=== PATIENT | male | born 1960 | race African-American/Black ===

== ENCOUNTER 2022-02-16 10:52 | Emergency (ER) | payer MEDICAID, OTHER ==
[~2022-02-16] VITALS: Ht 190.5 cm; Wt 168.7 kg
--- NOTE | 2022-02-16 11:15 | ED General ---
General Chief Complaint: Neuro-Stroke Like Symptoms Stated Complaint: LEFT ARM WEAKNESS Nursing Triage Note: PT TO RM 9 WITH FAMILY WITH C/O L ARM AND HAND SPASMS THAT STARTED APPROX 2 HOURS AGO AND SLIGHT CP ON ARRIVAL Source of Information: Patient Exam Limitations: No Limitations History of Present Illness Date Seen by Provider: Feb 16, 2022 Time Seen by Provider: 11:10 Initial Comments Patient is a 61-year-old male who presents to the emergency department with left hand/forearm "spasming" and mild discomfort that began approximately 2 hours prior to arrival. Patient denies any numbness or weakness in the affected area. Patient states he also has some very mild chest pain that he rates 1 out of 10 that has been present since yesterday. States he also has some mild shortness of air but notes that this is not new for him. Patient had a myocardial infarction requiring stenting approximately 2 months ago while he was in [place]. States he has not established a PCP or conflicts analyst in this area as he just moved. Patient states he thinks he "overexerted himself" as he drove for a prolonged period of time over the last few days and cleaned out his vehicle upon arriving here. Allergies and Home Medications Allergies Coded Allergies: codeine (Verified Allergy, Unknown, 02/16/22) haloperidol (Verified Allergy, Unknown, 02/16/22) iodine (Verified Allergy, Unknown, Vomiting, 02/16/22) pregabalin (Verified Allergy, Unknown, 02/16/22) simvastatin (Verified Allergy, Unknown, 02/16/22) Patient Home Medication List Home Medication List Reviewed: Yes Review of Systems Review of Systems Constitutional: no symptoms reported EENTM: no symptoms reported Respiratory: see HPI Cardiovascular: see HPI Gastrointestinal: no symptoms reported Musculoskeletal: see HPI Psychiatric/Neurological: No Symptoms Reported Past Ciijlmh-Crkqlv-Uakflx Hx Patient Social History Tobacco Use?: Yes Tobacco type used: Cigarettes Smoking Status: Current Everyday Smoker Substance use?: No Alcohol Use?: No Pt feels they are or have been: No Immunizations Up To Date Influenza Vaccine Up-to-Date: No; Not Current Past Medical History Surgery/Hospitalization HX: DM, HTN, NV, STENTS X2, HERNIA, BILL, R HAND, COLON, APPY Physical Exam Vital Signs Vital Signs - First Documented 02/16/22 10:55 Temp 36.0 Pulse 68 Resp 20 B/P (MAP) 161/97 (118) Capillary Refill : Height, Weight, BMI Height: '" Weight: lbs. oz. kg; 46.00 BMI Method: General Appearance: No Apparent Distress, WD/WN, Obese Eyes: Bilateral Eye Normal Inspection, Bilateral Eye PERRL, Bilateral Eye EOMI HEENT: PERRL/EOMI, TMs Normal, Normal ENT Inspection, Pharynx Normal Neck: Full Range of Motion, Normal Inspection, Non Tender, Supple Respiratory: Chest Non Tender, Lungs Clear, Normal Breath Sounds, No Accessory Muscle Use, No Respiratory Distress Cardiovascular: Regular Rate, Rhythm Gastrointestinal: Normal Bowel Sounds, Non Tender, Soft Back: Normal Inspection, No Vertebral Tenderness Extremity: Normal Capillary Refill, Normal Inspection, Normal Range of Motion Neurologic/Psychiatric: Alert, Oriented x3, No Motor/Sensory Deficits, Normal Mood/Affect, senior recruiter II-XII Norm as Tested Skin: Normal Color, Warm/Dry Comments no motor or sensation deficits noted to LUE; log feeder strength equal in both hands Progress/Results/Core Measures Suspected Sepsis SIRS Temperature: Pulse: 68 Respiratory Rate: 20 Laboratory Tests 02/16/22 11:06: White Blood Count 4.7 Blood Pressure 161 /97 Mean: 118 Laboratory Tests 02/16/22 11:06: Creatinine 1.67H, INR Comment 1.0, Platelet Count 205, Total Bilirubin 0.5 Results/Orders Lab Results Laboratory Tests Test 02/16/22 11:06 Range/Units White Blood Count 4.7 4.3-11.0 10^3/uL Red Blood Count 4.30 4.30-5.52 10^6/uL Hemoglobin 14.2 13.3-17.7 g/dL Hematocrit 41 40-54 % Mean Corpuscular Volume 96 80-99 fL Mean Corpuscular Hemoglobin 33 25-34 pg Mean Corpuscular Hemoglobin Concent 34 32-36 g/dL Red Cell Distribution Width 15.3 H 10.0-14.5 % Platelet Count 205 130-400 10^3/uL Mean Platelet Volume 9.7 9.0-12.2 fL Immature Granulocyte % (Auto) 0 % Neutrophils (%) (Auto) 48 42-75 % Lymphocytes (%) (Auto) 41 12-44 % Monocytes (%) (Auto) 9 0-12 % Eosinophils (%) (Auto) 2 0-10 % Basophils (%) (Auto) 1 0-10 % Neutrophils # (Auto) 2.3 1.8-7.8 10^3/uL Lymphocytes # (Auto) 2.0 1.0-4.0 10^3/uL Monocytes # (Auto) 0.4 0.0-1.0 10^3/uL Eosinophils # (Auto) 0.1 0.0-0.3 10^3/uL Basophils # (Auto) 0.0 0.0-0.1 10^3/uL Immature Granulocyte # (Auto) 0.0 0.0-0.1 10^3/uL Prothrombin Time 13.3 12.2-14.7 SEC INR Comment 1.0 0.8-1.4 Activated Partial Thromboplast Time 30 24-35 SEC Sodium Level 140 135-145 MMOL/L Potassium Level 3.8 3.6-5.0 MMOL/L Chloride Level 109 H 98-107 MMOL/L Carbon Dioxide Level 23 21-32 MMOL/L Anion Gap 8 5-14 MMOL/L Blood Urea Nitrogen 15 7-18 MG/DL Creatinine 1.67 H 0.60-1.30 MG/DL Estimat Glomerular Filtration Rate 46 BUN/Creatinine Ratio 9 Glucose Level 95 70-105 MG/DL Calcium Level 9.3 8.5-10.1 MG/DL Corrected Calcium 9.2 8.5-10.1 MG/DL Total Bilirubin 0.5 0.1-1.0 MG/DL Aspartate Amino Transf (AST/SGOT) 16 5-34 U/L Alanine Aminotransferase (ALT/SGPT) 13 0-55 U/L Alkaline Phosphatase 49 40-136 U/L Troponin I 0.038 H <0.028 NG/ML B-Type Natriuretic Peptide 195.2 H <100.0 PG/ML Total Protein 6.4 6.4-8.2 GM/DL Albumin 4.1 3.2-4.5 GM/DL My Orders Orders - JEMAL NICHOLS FACILITY ASSISTANT Cbc With Automated Diff (02/16/22 11:12) Comprehensive Metabolic Panel (02/16/22 11:12) Troponin I Rich (02/16/22 11:12) Bnp Rich (02/16/22 11:12) Protime With Inr (02/16/22 11:12) Partial Thromboplastin Time (02/16/22 11:12) Vital Signs/I&O 02/16/22 10:55 Temp 36.0 Pulse 68 Resp 20 B/P (MAP) 161/97 (118) Capillary Refill : Blood Pressure Mean: 118 Progress Note : Progress Note Patient is nontoxic and well-hydrated on exam. Vital signs are reassuring. NIH score 0. Patient has intact neurovascular function in the left upper extremity. Business Development strength is strong in the left hand. No cerebellar dysfunction as [id number] and noticed finger are intact. Patient was ambulatory to the room without issue. Patient is speaking in full sentences and is awake alert and oriented x4. No facial asymmetry noted. No gross cranial nerve deficits appreciated. Will obtain labs, chest x-ray, head CT, EKG. EKG without acute ischemic change or arrhythmia. Nonspecific ST changes in the anterior leads noted. Patient refused to the head CT and chest x-ray stating he has had several scans in the recent past and does not wish to have another at this time. Laboratory evaluation is largely unremarkable other than mildly elevated troponin. I do not have a baseline to know what his troponin normally runs. This elevation was discussed with the patient including the risk that this could potentially be an indication that his he is having strain on his hear t up to and including another heart attack. Patient states he is having no symptoms at this time and "I feel much better". He states he has something to attend to and is not able to stay in the hospital at this time. I encouraged him to stay but he persisted his desire to go home as he states this matter cannot wait. We discussed risks of leaving versus benefits of staying. He verbalized understanding and acceptance of these. I encouraged him very strongly to return to the hospital immediately if he has any chest pain, shortness of air, or any other concerning symptoms. He verbalized that he will return immediately if any of the symptoms arise. Patient will be given referral information to cardiology for further evaluation. Patient verbalized unders tanding. ECG EKG : EKG Time: 11:06 Rate: 62 Rhythm: Normal Sinus Intervals: Normal ECG Impression: Nonspecific Changes Comment nonspecific ST changes in anterior leads Departure Impression Primary Impression: Left hand pain Additional Impression: Elevated troponin Disposition: 01 HOME, SELF-CARE Condition: Stable Departure-Patient Inst. Decision time for Depature: 12:20 Referrals: NO,LOCAL PHYSICIAN (PCP/Family) Primary Care Physician Patient Instructions: Hand Pain, Troponin Test Add. Discharge Instructions: It was recommended you be admitted to the hospital today for further evaluation of your elevated cardiac enzyme. You have chosen to be discharged home. As we discussed, please return to the emergency department immediately for any worsening chest pain, shortness of air, or any other concerning symptoms. Please follow-up and establish care with a conflicts analyst locally. All discharge instructions reviewed with patient and/or family. Voiced understanding. JEMAL NICHOLS APRN Feb 16, 2022 11:15
[2022-02-16 11:20] LABS: BASOPHILS % (AUTO) 1 % (0-10); EOSINOPHILS # (AUTO) 0.1 10^3/uL (0.0-0.3); EOSINOPHILS % (AUTO) 2 % (0-10); HEMATOCRIT 41 % (40-54); HEMOGLOBIN 14.2 g/dL (13.3-17.7); LYMPHOCYTES % (AUTO) 41 % (12-44); MEAN CORPUSCULAR HEMOGLOBIN 33 pg (25-34); MEAN CORPUSCULAR HGB CONC 34 g/dL (32-36); MEAN CORPUSCULAR VOLUME 96 fL (80-99); MEAN PLATELET VOLUME 9.7 fL (9.0-12.2); MONOCYTES # (AUTO) 0.4 10^3/uL (0.0-1.0); MONOCYTES % (AUTO) 9 % (0-12); NEUTROPHILS # (AUTO) 2.3 10^3/uL (1.8-7.8); NEUTROPHILS % (AUTO) 48 % (42-75); PLATELET COUNT 205 10^3/uL (130-400); WHITE BLOOD COUNT 4.7 10^3/uL (4.3-11.0)
[2022-02-16 11:28] LABS: ALBUMIN 4.1 GM/DL (3.2-4.5)
[2022-02-16 11:29] LABS: POTASSIUM 3.8 MMOL/L (3.6-5.0)
[2022-02-16 11:30] LABS: CALCIUM 9.3 MG/DL (8.5-10.1)
[2022-02-16 11:31] LABS: TOTAL PROTEIN 6.4 GM/DL (6.4-8.2)
[2022-02-16 11:32] LABS: PROTHROMBIN TIME PATIENT 13.3 SEC (12.2-14.7)
[2022-02-16 11:33] LABS: BILIRUBIN,TOTAL 0.5 MG/DL (0.1-1.0)
[2022-02-16 11:35] LABS: CREATININE SERUM 1.67 MG/DL (0.60-1.30)
[2022-02-16 12:40] VITALS: BP 166/110
== END 2022-02-16 12:38 | disposition home or self-care (01) ==
LOC: EDUNIT# 10:52 → ER 10:56
DX: M79.642 Pain in left hand (principal); R77.8 Other specified abnormalities of plasma proteins; F17.210 Nicotine dependence, cigarettes, uncomplicated; E66.9 Obesity, unspecified; Z68.42 Body mass index [BMI] 45.0-49.9, adult
CPT/HCPCS: 36415; 80053; 83880; 84484; 85025; 85610; 85730; 93005

== ENCOUNTER 2022-02-16 13:11 | Emergency (ER) | payer MEDICAID | END 2022-02-16 13:40 | disposition left against medical advice (07) | LOC: EDUNIT# 13:11 → ER 13:13 | DX: R53.1 Weakness (principal) ==

== ENCOUNTER 2022-03-11 15:33 | Inpatient (IN) | payer MEDICAID, OTHER ==
[~2022-03-11] VITALS: Ht 190.5 cm; Wt 164.2 kg
--- NOTE | 2022-03-11 15:52 | ED Respiratory ---
General Chief Complaint: Respiratory Problems Stated Complaint: SOA Nursing Triage Note: PT BROUGHT IN BY [facility] FROM [facility] WITH COMPLAINT OF SOA. PT WAS IN WAITING ROOM AT [facility] AND HAD COUGHING FIT AND O2 WAS 89% ON RA. STATES BECAME SOA 2 DAYS AGO. HX OF COPD. Source: patient Exam Limitations: no limitations (ILDA LOPEZ APRN) History of Present Illness Date Seen by Provider: Mar 11, 2022 Time Seen by Provider: 15:40 Initial Comments This is a 61 yo male with history of HTN, DM, HLD, ME, Coronary stent x2, and COPD who was referred to ER from [facility] for concerns of low oxygen saturation. Was reported to be establishing care with [facility] when he had a coughing fit in the lobby and was found to have oxygen saturation of 89% on room air. He also reported having a "pinch" of chest pain for a brief second after coughing so he was referred to ER for further evaluation. He recently moved to [facility] from [place]. Was seen at [facility] 2 days ago by this provider and was diagnosed with Bronchitis and given Albuterol inhaler and Doxycycline. At time of evaluation he refused labs and CXR, COVID and Flu swabs were negative. States he is unable to take Steroids because they cause severe aggression and "make me crazy in the head", so no steroids were initiated. States Albuterol is somewhat helpful but is still having significant coughing fits and shortness of breath. Denies chest pain at this time. Denies fever, nausea, vomiting, abdominal pain. Has been experiencing several episodes of incontinence because he is unable to make it to restroom. (ILDA LOPEZ APRN) Allergies and Home Medications Allergies Coded Allergies: codeine (Verified Allergy, Unknown, 02/16/22) haloperidol (Verified Allergy, Unknown, 02/16/22) iodine (Verified Allergy, Unknown, Vomiting, 02/16/22) morphine (Verified Allergy, Unknown, 03/11/22) pregabalin (Verified Allergy, Unknown, 02/16/22) simvastatin (Verified Allergy, Unknown, 02/16/22) Uncoded Allergies: CORTICORSTEROIDS (Allergy, Unknown, 03/11/22) Patient Home Medication List Home Medication List Reviewed: Yes (ILDA LOPEZ APRN) No Active Prescriptions or Reported Meds Review of Systems Review of Systems Constitutional: see HPI (ILDA LOPEZ APRN) Past Xsnlaic-Aiedef-Sxdsar Hx Patient Social History Tobacco Use?: Yes Tobacco type used: Cigarettes Smoking Status: Current Everyday Smoker Use of E-Cig and/or Vaping dev: No Substance use?: No Alcohol Use?: Yes Alcohol Frequency: Once in a while Pt feels they are or have been: No (ILDA LOPEZ APRN) Immunizations Up To Date First/Initial COVID19 Vaccinat: NO (ILDA LOPEZ APRN) Past Medical History Surgery/Hospitalization HX: DM, HTN, ME, STENTS X2, HERNIA, BILL, R HAND, COLON, APPY (ILDA LOPEZ APRN) Physical Exam Vital Signs - First Documented 03/11/22 15:35 Temp 36.2 Pulse 96 Resp 16 B/P (MAP) 90/63 (72) Pulse Ox 91 O2 Delivery Nasal Cannula O2 Flow Rate 3.00 (ARSENIO GARCÍA MD) Capillary Refill : Less Than 3 Seconds (ILDA LOPEZ APRN) Height: '" Weight: lbs. oz. kg; 45.00 BMI Method: General Appearance: WD/WN, no apparent distress Eyes: Bilateral Eye Normal Inspection, Bilateral Eye PERRL, Bilateral Eye EOMI HEENT: PERRL/EOMI, normal ENT inspection, TMs normal, pharynx normal Neck: full range of motion, supple, normal inspection Respiratory: no respiratory distress, no accessory muscle use, decreased breath sounds, rales, rhonchi Cardiovascular: regular rate, rhythm, no murmur Gastrointestinal: normal bowel sounds, non tender, soft Extremities: normal range of motion, non-tender, normal inspection Neurologic/Psychiatric: no motor/sensory deficits, alert, normal mood/affect, oriented x 3 Skin: normal color, warm/dry (ILDA LOPEZ APRN) Progress/Results/Core Measures Suspected Sepsis SIRS Temperature: Pulse: 96 Respiratory Rate: 16 Laboratory Tests 03/11/22 15:54: White Blood Count 6.5 Blood Pressure 90 /63 Mean: 72 Laboratory Tests 03/11/22 15:54: Creatinine 1.28, INR Comment 0.9, Platelet Count 212, Total Bilirubin 0.6 (ILDA LOPEZ APRN) Results/Orders Lab Results Laboratory Tests Test 03/11/22 15:45 11/28/22 15:54 Range/Units Influenza Type A (RT-PCR) Not Detected Not Detecte Influenza Type B (RT-PCR) Not Detected Not Detecte SARS-CoV-2 RNA (RT-PCR) Not Detected Not Detecte White Blood Count 6.5 4.3-11.0 10^3/uL Red Blood Count 4.30 4.30-5.52 10^6/uL Hemoglobin 13.8 13.3-17.7 g/dL Hematocrit 41 40-54 % Mean Corpuscular Volume 96 80-99 fL Mean Corpuscular Hemoglobin 32 25-34 pg Mean Corpuscular Hemoglobin Concent 34 32-36 g/dL Red Cell Distribution Width 14.7 H 10.0-14.5 % Platelet Count 212 130-400 10^3/uL Mean Platelet Volume 9.9 9.0-12.2 fL Immature Granulocyte % (Auto) 1 % Neutrophils (%) (Auto) 53 42-75 % Lymphocytes (%) (Auto) 35 12-44 % Monocytes (%) (Auto) 12 0-12 % Eosinophils (%) (Auto) 0 0-10 % Basophils (%) (Auto) 1 0-10 % Neutrophils # (Auto) 3.4 1.8-7.8 10^3/uL Lymphocytes # (Auto) 2.3 1.0-4.0 10^3/uL Monocytes # (Auto) 0.8 0.0-1.0 10^3/uL Eosinophils # (Auto) 0.0 0.0-0.3 10^3/uL Basophils # (Auto) 0.0 0.0-0.1 10^3/uL Immature Granulocyte # (Auto) 0.0 0.0-0.1 10^3/uL Prothrombin Time 13.0 12.2-14.7 SEC INR Comment 0.9 0.8-1.4 Activated Partial Thromboplast Time 30 24-35 SEC D-Dimer 0.46 0.00-0.49 UG/ML Sodium Level 136 135-145 MMOL/L Potassium Level 3.8 3.6-5.0 MMOL/L Chloride Level 99 98-107 MMOL/L Carbon Dioxide Level 25 21-32 MMOL/L Anion Gap 12 5-14 MMOL/L Blood Urea Nitrogen 10 7-18 MG/DL Creatinine 1.28 0.60-1.30 MG/DL Estimat Glomerular Filtration Rate 64 BUN/Creatinine Ratio 8 Glucose Level 125 H 70-105 MG/DL Calcium Level 8.8 8.5-10.1 MG/DL Corrected Calcium 8.9 8.5-10.1 MG/DL Magnesium Level 1.7 1.6-2.4 MG/DL Total Bilirubin 0.6 0.1-1.0 MG/DL Aspartate Amino Transf (AST/SGOT) 29 5-34 U/L Alanine Aminotransferase (ALT/SGPT) 21 0-55 U/L Alkaline Phosphatase 61 40-136 U/L Total Creatine Kinase 764 H 30-200 U/L Creatine Kinase MB 3.0 <6.6 NG/ML Myoglobin 296.8 H 10.0-92.0 NG/ML Troponin I 0.029 H <0.028 NG/ML B-Type Natriuretic Peptide 289.3 H <100.0 PG/ML Total Protein 6.5 6.4-8.2 GM/DL Albumin 3.9 3.2-4.5 GM/DL Lipase 7 L 8-78 U/L (ARSENIO GARCÍA MD) Vital Signs/I&O 03/11/22 03/11/22 15:35 16:40 Temp 36.2 Pulse 96 Resp 16 B/P (MAP) 90/63 (72) Pulse Ox 91 97 O2 Delivery Nasal Cannula Nasal Cannula O2 Flow Rate 3.00 6.00 (ARSENIO GARCÍA MD) Vital Signs/I&O Capillary Refill : Less Than 3 Seconds (ILDA LOPEZ APRN) Blood Pressure Mean: 72 ECG Initial ECG Impression Date: Mar 11, 2022 Initial ECG Impression Time: 15:47 Initial ECG Rate: 90 Initial ECG Rhythm: Normal Sinus Initial ECG Comparisson: Unchanged (ILDA LOPEZ APRN) Diagnostic Imaging Diagonstic Imaging: Xray Plain Films/CT/US/NM/MRI: chest Comments [facility], [place] NAME: REMIWATSON REC#: [id number] PT STATUS: REG ER : 1960 PHYSICIAN: ILDA LOPEZ APRN ADMIT DATE: 03/11/22/ER Draft Date of Exam:03/11/22 CHEST 1 VIEW, AP/PA ONLY INDICATION: Shortness of air, cough, and hypoxia. FINDINGS: Heart size is upper limits. There is mild vascular congestion. There are some perihilar interstitial opacities which may be edema or pneumonia. No pleural fluid. Air within right upper quadrant bowel loops is interposed between the right diaphragm and the right hepatic dome. No free air evident. IMPRESSION: 1. Upper limits heart size, venous caliber, and perihilar interstitial opacities. Lung disease may be edema or pneumonia. 2. No pleural pathology. Dictated on workstation # [id number] Dict: 03/11/22 1621 Trans: 03/11/22 1624 [id number] Interpreted by: CHINTAN DICKERSON Electronically signed by: (ILDA LOPEZ APRN) Departure Communication (Admissions) Time/Spoke to Admitting Phy: 19:47 Dr. Schultz Time/Spoke to Consulting Phy: 20:15 Dr. Li (ILDA LOPEZ RECRUITING ASSISTANT) Impression Primary Impression: Elevation of cardiac enzymes Additional Impressions: Shortness of breath COPD with acute bronchitis Disposition: ADMITTED INPATIENT Condition: Stable Admissions Decision to Admit Reason: Admit from ER (General) Decision to Admit/Date: Mar 11, 2022 Time/Decision to Admit Time: 19:00 (ILDA LOPEZ APRN) Departure-Patient Inst. Referrals: NO,LOCAL PHYSICIAN (PCP/Family) Primary Care Physician Scripts No Active Prescriptions or Reported Meds ATTENDING PHYSICIAN NOTE: I was physically present as attending physician in the emergency department during the care of this patient. I reveiwed ECG with Ilda and compared with prior. I was otherwised not directly involved in the decision making or del lacey of care for this patient. I did not personally interview or examine this patient. (ARSENIO GARCÍA MD) ILDA LOPEZ APRN Mar 11, 2022 15:52 ARSENIO GARCÍA MD Mar 12, 2022 13:11
[2022-03-11 16:08] LABS: BASOPHILS % (AUTO) 1 % (0-10); EOSINOPHILS % (AUTO) 0 % (0-10); HEMATOCRIT 41 % (40-54); HEMOGLOBIN 13.8 g/dL (13.3-17.7); LYMPHOCYTES # (AUTO) 2.3 10^3/uL (1.0-4.0); LYMPHOCYTES % (AUTO) 35 % (12-44); MEAN CORPUSCULAR HEMOGLOBIN 32 pg (25-34); MEAN CORPUSCULAR HGB CONC 34 g/dL (32-36); MEAN CORPUSCULAR VOLUME 96 fL (80-99); MEAN PLATELET VOLUME 9.9 fL (9.0-12.2); MONOCYTES # (AUTO) 0.8 10^3/uL (0.0-1.0); MONOCYTES % (AUTO) 12 % (0-12); NEUTROPHILS # (AUTO) 3.4 10^3/uL (1.8-7.8); NEUTROPHILS % (AUTO) 53 % (42-75); PLATELET COUNT 212 10^3/uL (130-400); WHITE BLOOD COUNT 6.5 10^3/uL (4.3-11.0)
[2022-03-11 16:13] LABS: INR 0.9 (0.8-1.4)
[2022-03-11] MEDS ORDERED: RT-ALBUTEROL/IPRATROPIUM 3 ML (DUONEB) VIAL INH ONE (16:15)
[2022-03-11] MEDS ORDERED: ACETAMINOPHEN 500 MG TAB (TYLENOL) PO ONE (16:15)
[2022-03-11 16:19] LABS: MAGNESIUM 1.7 MG/DL (1.6-2.4)
[2022-03-11 16:20] LABS: ALBUMIN 3.9 GM/DL (3.2-4.5); BILIRUBIN,TOTAL 0.6 MG/DL (0.1-1.0); CALCIUM 8.8 MG/DL (8.5-10.1); CREATININE SERUM 1.28 MG/DL (0.60-1.30); POTASSIUM 3.8 MMOL/L (3.6-5.0); TOTAL PROTEIN 6.5 GM/DL (6.4-8.2)
--- NOTE | 2022-03-11 16:25 | Diagnostic Imaging Report ---
INDICATION: Shortness of air, cough, and hypoxia. FINDINGS: Heart size is upper limits. There is mild vascular congestion. There are some perihilar interstitial opacities which may be edema or pneumonia. No pleural fluid. Air within right upper quadrant bowel loops is interposed between the right diaphragm and the right hepatic dome. No free air evident. IMPRESSION: 1. Upper limits heart size, venous caliber, and perihilar interstitial opacities. Lung disease may be edema or pneumonia. 2. No pleural pathology. Dictated by: Dictated on workstation # [id number]
[2022-03-11] MEDS ORDERED: clonazePAM 1 MG (KlonoPIN) TAB PO ONE (17:45)
[2022-03-11] MEDS ORDERED: NS IV 1000 ML 1,000 ML IV ONE (18:30)
[2022-03-11] MEDS ORDERED: ALPRAZolam 1 MG (XANAX) TAB PO ONE (20:00)
[2022-03-11] MEDS ORDERED: guaiFENesin/DM (ROBITUSSIN DM) 10 ML UDC PO PRN ×2 (20:15→23:45)
[2022-03-11 21:38] VITALS: BP 131/92
[2022-03-11 22:03] VITALS: BP 184/124
[2022-03-11 23:21] VITALS: BP 90/63
[2022-03-11] MEDS ORDERED: RT-ALBUTEROL/IPRATROPIUM 3 ML (DUONEB) VIAL INH PRN (23:45)
[2022-03-11] MEDS ORDERED: ONDANSETRON 4 MG/2 ML (SDV) Z0FRAN IV PRN (23:45)
[2022-03-11] MEDS ORDERED: NITROGLYCERIN 0.4 MG SL TABS BTL 25'S SL PRN (23:45)
[2022-03-12] VITALS (8 sets, daily range): BP systolic 92–185; BP diastolic 54–115
[2022-03-12] MEDS ORDERED: DexMEDEtomidine 250 ML DRIP 250 ML IV ONE (01:42)
[2022-03-12] MEDS ORDERED: FUROSEMIDE 40 MG/4 ML INJ (LASIX) ONE (01:42)
[2022-03-12] MEDS ORDERED: FUROSEMIDE 40 MG/4 ML INJ (LASIX) IVP ONE (01:45)
[2022-03-12 01:50] LABS: ABG BASE EXCESS 0.6 MMOL/L (-2.5-2.5); ABG OXYGEN SATURATION 95 % (94-100); ABG PCO2 48 MMHG (35-45); ABG PH 7.35 (7.37-7.43); ABG PO2 66 MMHG (79-93); ABG TCO2 27.3 MMOL/L (21.0-31.0); ALLENS TEST YES-POS; INSPIRED O2 40%; PATIENT TEMP 101.7; VENTILATOR NO
[2022-03-12] MEDS: DexMEDEtomidine 250 ML DRIP 250 ML IV SCH ×4 (01:57→20:42)
--- NOTE | 2022-03-12 02:11 | Tele-ICU Consult ---
History of Present Illness History of Present Illness Date Seen by Provider: Mar 12, 2022 Time Seen by Provider: 02:05 History of Present Illness 61 M with SOB, SpO2 low, 80's, also trop were elevated, admitted to cardiac step down but became SOB, fausto last hour, Starte on BiPAP 18/8, FIO2 40%, spont RR 40's, pt is awake somewhat sedated once started on IV Precedex ABG 7.45/48/66 will have echo and is to get IV Lasix 40 mg BP 186/113, Pt not c/o CP but does has SOB CXR shows mild congestion COVID, flu serology are negative PMH COPD, anxiety, smoker, EtOH but no use recently HTN, DM, s/p CO with stent in past Allergies and Home Medications Allergies Coded Allergies: codeine (Verified Allergy, Unknown, 02/16/22) haloperidol (Verified Allergy, Unknown, 02/16/22) iodine (Verified Allergy, Unknown, Vomiting, 02/16/22) morphine (Verified Allergy, Unknown, 03/11/22) pregabalin (Verified Allergy, Unknown, 02/16/22) simvastatin (Verified Allergy, Unknown, 02/16/22) Uncoded Allergies: CORTICORSTEROIDS (Allergy, Unknown, 03/11/22) Home Medications No Active Prescriptions or Reported Meds Past Medical/Social/Family Hx Patient Social History Tobacco Use?: No Tobacco type used: Cigarettes Smoking Status: Former Smoker Use of E-Cig and/or Vaping dev: No Substance use?: No Alcohol Use?: No Alcohol Frequency: Once in a while Pt stated abuse/neglect: No Immunizations Up To Date Influenza Vaccine Up-to-Date: No; Not Current First/Initial COVID19 Vaccinat: NO Tetanus Booster (TDap): Unknown Current Status Advance Directives: No Communicates: Verbally Primary Language: Yakut Preferred Spoken Language: Yakut Is interpretation needed?: No Implanted or Applied Medical D: None Review of Systems Constitutional: see HPI EENTM: see HPI Respiratory: see HPI Cardiovascular: see HPI Gastrointestinal: see HPI Genitourinary: see HPI Musculoskeletal: see HPI Skin: see HPI Psychiatric/Neurological: See HPI Focused Exam Height, Weight, BMI Height: '" Weight: lbs. oz. kg; 47.12 BMI Method: Exam Exam Patient acknowledged, consented, and participated in this virtual visit which was conducted using real time audio/video Vital Signs Date Time Temp Pulse Resp B/P (MAP) Pulse Ox O2 Delivery O2 Flow Rate FiO2 03/12/22 01:57 123 190/121 03/11/22 23:21 36.2 96 91 03/11/22 21:39 103 03/11/22 21:32 95 18 132/79 96 03/11/22 21:30 92 Nasal Cannula 4.00 03/11/22 16:40 97 Nasal Cannula 6.00 03/11/22 15:35 36.2 96 16 90/63 (72) 91 Nasal Cannula 3.00 I & O 03/12/22 07:00 Intake Total 0 ml Output Total 0 ml Balance 0 ml Height & Weight Height: '" Weight: lbs. oz. kg; 47.12 BMI Method: General Appearance: Moderate Distress Respiratory: Decreased Breath Sounds, Wheezing Cardiovascular: Regular Rate, Rhythm, Tachycardia Capillary Refill: Less Than 3 Seconds Gastrointestinal: normal bowel sounds, non tender, soft Extremity: No Pedal Edema Results Lab Laboratory Tests 03/11/22 15:54 Assessment/Plan Assessment/Plan Morbid obesity with hypercarbic resp failure, working very hard to breathe, If does not improve soon would electively intubate as pt most likely be a difficult intubation On IV precedex, albuterol If no improvement soon would intubate electively Antwan Payne MD Critical Care: Critically Ill Patient Time spent with patient (mins): 30 CLAUDIO PAYNE MD Mar 12, 2022 02:11
[2022-03-12] MEDS ORDERED: RT-ALBUTEROL/IPRATROPIUM 3 ML (DUONEB) VIAL INH PRN (02:30)
--- NOTE | 2022-03-12 02:53 | Tele-ICU Progress Note ---
Subjective Date Seen by a Provider: Mar 12, 2022 Time Seen by a Provider: 02:46 Subjective/Events-last exam Given IV Lasix with good UO 120 mL but still has high WOB with spont RR in 40;s, not as awake but on IV Precedex, SpO2 still in 90's, BP 96/76, I am concerned that he will not tolerate this work of breathing for long, I would electively intubate, likely to be difficult airway, and would have IV levophed ready in c ase he drops BP Sepsis Event Evaluation Height, Weight, BMI Height: '" Weight: lbs. oz. kg; 47.12 BMI Method: Exam Exam Patient acknowledged, consented, and participated in this virtual visit which was conducted using real time audio/video Vital Signs Date Time Temp Pulse Resp B/P (MAP) Pulse Ox O2 Delivery O2 Flow Rate FiO2 03/12/22 02:29 123 66 100 40.00 03/12/22 01:57 123 190/121 03/11/22 23:21 36.2 96 91 03/11/22 21:39 103 03/11/22 21:32 95 18 132/79 96 03/11/22 21:30 92 Nasal Cannula 4.00 03/11/22 16:40 97 Nasal Cannula 6.00 03/11/22 15:35 36.2 96 16 90/63 (72) 91 Nasal Cannula 3.00 I & O 03/12/22 07:00 Intake Total 0 ml Output Total 0 ml Balance 0 ml Height & Weight Height: '" Weight: lbs. oz. kg; 47.12 BMI Method: General Appearance: Severe Distress Respiratory: Wheezing Cardiovascular: Tachycardia Capillary Refill: Less Than 3 Seconds Gastrointestinal: normal bowel sounds, non tender, soft Extremity: No Pedal Edema Results Lab Laboratory Tests 03/11/22 15:54 Assessment/Plan Assessment/Plan still has very high spont RR, at this point I would electively intubate, have IV levophed ready in case BP drops pt is morbidly obese and may have difficult airway Critical Care: Critically Ill Patient Time spent with patient (mins): 25 CLAUDIO PAYNE MD Mar 12, 2022 02:53
[2022-03-12] MEDS ORDERED: NOREPINEPHRINE 8 MG/250 ML 250 ML IV ONE ×2 (03:09→19:26)
--- NOTE | 2022-03-12 03:52 | Anesthesia-Procedure Note ---
Procedures/Interventions Procedure Start/Stop/Diagnosis Date of Procedure: Mar 12, 2022 Start Time: 03:30 Stop Time: 03:45 Intubation RSI: Yes 100% pre-Ox, [id number]: Yes Intubation Method: orotracheal Videoscope used: Yes Grade View: 1 Medications: Etomidate (40), Rocuronium (50), Succinylcholine (100), Versed (5) Mask Ventilation: positive Positive End Tide CO2: Yes Breath Sounds after Intubation: bilateral-equal ETT Securred @ (cm): 23 Intubated with ease: Yes Intubation Complications: no complications Arterial Line Arterial Line Catheter: 20G Type: Radial Location: Left Procedure: prepped, draped in sterile fashion, good wave-form was obtained, patient tolerated procedure well, no immediate complications, post procedure area cleaned, post procedure dressing applied STEFFEN FUENTES CRNA Mar 12, 2022 03:52
--- NOTE | 2022-03-12 04:08 | Progress Note ---
Standard Progress Note Progress Notes/Assess & Plan Date Seen by a Provider: Mar 12, 2022 Time Seen by a Provider: 04:05 Progress/Assessment & Plan Pt intubated without problems, looks better, not much secretions from ET tube, I reviewed ET tube, looks in good position on CXR will order sedation, IV propofol, Fentnyl, get ABG at 0500 vent now at AC 18 Vt 500 FiO2 50% needing low dose of IV levophed CLAUDIO PAYNE MD Mar 12, 2022 04:08
[2022-03-12] MEDS: fentaNYL DRIP PRE-MIX 250 ML IV SCH ×3 (05:00→20:42)
[2022-03-12] MEDS: PROPOFOL DRIP (ICU) 100 ML IV SCH ×10 (05:01→22:49)
[2022-03-12] MEDS: NS IV 1000 ML 1,000 ML IV SCH ×3 (05:14→19:30)
[2022-03-12 05:49] LABS: ABG BASE EXCESS 0.6 MMOL/L (-2.5-2.5); ABG OXYGEN SATURATION 93 % (94-100); ABG PCO2 59 MMHG (35-45); ABG PO2 64 MMHG (79-93); ABG TCO2 28.4 MMOL/L (21.0-31.0)
[2022-03-12 05:59] LABS: ALLENS TEST ARTLINE; INSPIRED O2 40%; VENTILATOR NO
[2022-03-12 06:01] LABS: ABG PH 7.28 (7.37-7.43)
[2022-03-12 06:08] LABS: BASOPHILS % (AUTO) 0 % (0-10); EOSINOPHILS % (AUTO) 0 % (0-10); HEMATOCRIT 40 % (40-54); HEMOGLOBIN 13.7 g/dL (13.3-17.7); LYMPHOCYTES % (AUTO) 37 % (12-44); MEAN CORPUSCULAR HEMOGLOBIN 33 pg (25-34); MEAN CORPUSCULAR HGB CONC 34 g/dL (32-36); MEAN CORPUSCULAR VOLUME 96 fL (80-99); MEAN PLATELET VOLUME 10.2 fL (9.0-12.2); MONOCYTES # (AUTO) 0.5 10^3/uL (0.0-1.0); MONOCYTES % (AUTO) 9 % (0-12); NEUTROPHILS # (AUTO) 2.9 10^3/uL (1.8-7.8); NEUTROPHILS % (AUTO) 53 % (42-75); PLATELET COUNT 219 10^3/uL (130-400); WHITE BLOOD COUNT 5.5 10^3/uL (4.3-11.0)
[2022-03-12] MEDS: RT-ALBUTEROL/IPRATROPIUM 3 ML (DUONEB) VIAL INH SCH ×5 (07:16→22:03)
--- NOTE | 2022-03-12 07:39 | Diagnostic Imaging Report ---
INDICATION: Intubated, shortness of breath and pneumonia. COMPARISONS: 03/11/2022 FINDINGS: Single portable film of the chest shows cardiac contour to be normal. There is prominent central vascularity. Some left perihilar and left basilar infiltrates persist. There is no confluent consolidations. ET tube tip overlies trachea just below level of clavicles. NG tube is beyond the GE junction. Soft tissues and bony thorax are unchanged. IMPRESSION: 1. Improved aeration both lungs with some persistent left basilar infiltrates. There is some mild central venous congestion. 2. Interval intubation with ET tube tip overlies trachea just below level clavicles. NG tube tip is beyond the GE junction. Dictated by: Dictated on workstation # [id number]
[2022-03-12 07:51] LABS: ALBUMIN 3.6 GM/DL (3.2-4.5); BILIRUBIN,TOTAL 0.7 MG/DL (0.1-1.0); CALCIUM 8.3 MG/DL (8.5-10.1); CREATININE SERUM 1.46 MG/DL (0.60-1.30); POTASSIUM 4.6 MMOL/L (3.6-5.0); TOTAL PROTEIN 6.1 GM/DL (6.4-8.2)
[2022-03-12] MEDS ORDERED: RT-ALBUTEROL/IPRATROPIUM 3 ML (DUONEB) VIAL INH SCH (08:00)
[2022-03-12 08:46] LABS: BILIRUBIN,URINE 1+ (NEGATIVE); CLARITY,URINE CLEAR; COLOR,URINE YELLOW; GLUCOSE, URINE (UA) NEGATIVE (NEGATIVE); KETONES,URINE NEGATIVE (NEGATIVE); LEUKOCYTE ESTERASE ,URINE TRACE (NEGATIVE); NITRITE,URINE NEGATIVE (NEGATIVE); PH,URINE 5.5 (5-9); PROTEIN,URINE TRACE (NEGATIVE)
[2022-03-12] MEDS: FAMOTIDINE 20 MG (PEPCID) TABLET PO SCH ×2 (08:51→20:32)
[2022-03-12] MEDS: ASPIRIN E.C. 81 MG (ECOTRIN) TAB PO SCH (08:51)
[2022-03-12] MEDS: CEFEPIME INJECTION 1,000 MG in NS (IVPB) 50 ML IV SCH ×3 (08:51→20:32)
[2022-03-12 08:56] LABS: BACTERIA,URINE NEGATIVE /HPF; HYALINE CASTS, URINE RARE /LPF; WBC,URINE 0-2 /HPF
--- NOTE | 2022-03-12 10:45 | Consultation-Cardiology ---
HPI-Cardiology Cardiology Consultation: Date of Consultation 03/12/22 Time Seen by a Provider: 10:30 Date of Admission 03-11-22 Attending Physician No,Local Physician Admitting Physician Admitting Physician: Lesly Walker MD Attending Physician: Lesly Walker MD Consulting Physician FREDDY PADILLA HPI: Chief Complaint: Resp failure Troponin elevation Mr. Khalil is a 61 yr old male admitted to ICU 8 from the ED. He is currently intubated and sedated. Report from the nurse and review of chart states he was seen at [facility] yesterday. He was in the waiting room and began to cough. He had reported increasing SOB. Staff at [facility] found is oxygen sat to be in the 80's. He was then transported to [facility] ED. He continued to have low oxygen sats. Sats did improved with supplemental oxygen and SVN. He was admitted to [facility]. O vernight he became increasingly anxious and SOB. He was then transferred to ICU 8. He continued to have increasing SOB; he was then sedated and intubated. There is no family at the bedside. Review of Systems-Cardiology Review of Systems Other comments Unable to obtain d/t intubation/sedation XVX-Apliny-Kzvjfh Hx Patient Social History Smoking Status: Former Smoker Have you traveled recently?: No Alcohol Use?: No Pt feels they are or have been: No Tobacco type used: Cigarettes Past Medical History PM As described under Assessment. Family Medical History Family Medical History: Unable to obtain d/t intubation/sedation Allergies and Home Medications Allergies Coded Allergies: codeine (Verified Allergy, Unknown, 02/16/22) haloperidol (Verified Allergy, Unknown, 02/16/22) iodine (Verified Allergy, Unknown, Vomiting, 02/16/22) morphine (Verified Allergy, Unknown, 03/11/22) pregabalin (Verified Allergy, Unknown, 02/16/22) simvastatin (Verified Allergy, Unknown, 02/16/22) Uncoded Allergies: CORTICORSTEROIDS (Allergy, Unknown, 03/11/22) Patient Home Medication List No Active Prescriptions or Reported Meds Physical Exam-Cardiology Physical Exam Vital Signs/I&O 03/12/22 03/12/22 03/12/22 03/13/22 22:49 23:00 23:50 00:00 Temp 37.3 Pulse 75 78 76 Resp 22 11 B/P (MAP) 114/59 Pulse Ox 92 92 O2 Delivery Mechanical Ventilator Mechanical Ventilator O2 Flow Rate 40.00 40.00 03/13/22 03/13/22 03/13/22 03/13/22 00:07 00:07 00:24 00:43 Temp 37.0 Pulse 75 Resp 22 B/P (MAP) 114/59 Pulse Ox 94 O2 Delivery Mechanical Ventilator Mechanical Ventilator O2 Flow Rate 40.00 FiO2 40 03/13/22 03/13/22 03/13/22 03/13/22 00:43 01:00 01:00 01:23 Pulse 75 76 76 75 Resp 22 B/P (MAP) 114/59 114/59 Pulse Ox 94 O2 Delivery Mechanical Ventilator O2 Flow Rate 40.00 03/13/22 03/13/22 03/13/22 03/13/22 01:24 02:00 02:00 02:47 Pulse 75 74 75 Resp 23 B/P (MAP) 114/59 114/59 Pulse Ox 93 O2 Delivery Mechanical Ventilator O2 Flow Rate 40.00 FiO2 40 03/13/22 03/13/22 03/13/22 03/13/22 02:47 03:00 03:13 04:00 Pulse 73 73 75 Resp 22 16 B/P (MAP) Pulse Ox 92 92 93 O2 Delivery Mechanical Ventilator Mechanical Ventilator Mechanical Ventilator O2 Flow Rate 40.00 40.00 40.00 FiO2 40 03/13/22 03/13/22 03/13/22 03/13/22 04:20 04:21 05:00 05:04 Temp 37.3 Pulse 74 Resp 24 39 B/P (MAP) Pulse Ox 93 93 O2 Delivery Mechanical Ventilator Mechanical Ventilator Mechanical Ventilator O2 Flow Rate 40.00 40.00 FiO2 40 40 03/13/22 03/13/22 03/13/22 03/13/22 05:18 05:25 05:25 05:27 Pulse 75 75 75 75 B/P (MAP) 99/54 99/54 99/54 99/54 03/13/22 03/13/22 03/13/22 03/13/22 06:00 07:00 07:00 07:14 Pulse 73 74 71 70 Resp 22 B/P (MAP) Pulse Ox 93 93 90 O2 Delivery Mechanical Ventilator Mechanical Ventilator O2 Flow Rate 40.00 40.00 FiO2 40 11/30/22 03/13/22 03/13/22 03/13/22 07:30 08:00 08:03 08:08 Temp 37.2 Pulse 73 73 Resp 24 B/P (MAP) 109/56 Pulse Ox 93 93 O2 Delivery Mechanical Ventilator Mechanical Ventilator O2 Flow Rate 40.00 FiO2 40 03/13/22 03/13/22 03/13/22 03/13/22 08:15 08:31 09:00 09:15 Pulse 74 73 73 Resp 22 B/P (MAP) 110/56 117/57 Pulse Ox 94 O2 Delivery Mechanical Ventilator O2 Flow Rate 40.00 FiO2 40 03/13/22 03/13/22 03/13/22 09:15 09:15 10:00 Pulse 73 73 72 Resp 27 B/P (MAP) 117/57 117/57 Pulse Ox 94 O2 Delivery Mechanical Ventilator O2 Flow Rate 40.00 03/13/22 00:00 Intake Total 2690 ml Output Total 1225 ml Balance 1465 ml Capillary Refill : Less Than 3 Seconds Constitutional: other (intubated and sedated) HEENT: No xanthelasmas are seen Neck: No carotid bruit; carotid pulses are 2 + bilaterally Respiratory: other (intubated; good air entry) Cardiovascular: regular rate-rhythm Gastrointestinal: soft, round, audible bowel sounds Extremities: no lower extremity edema bilateral Neurologic/Psychiatric: other (unable to cooperate with neuro exam d/t sedation) Skin: No rash on exposed areas, No ulcerations on exposed areas Data Review Labs Laboratory Tests 03/12/22 11:13: Glucometer 165H 03/12/22 16:40: Glucometer 156H 03/12/22 21:05: Glucometer 149H 03/13/22 04:22: White Blood Count 5.5, Red Blood Count 3.92L, Hemoglobin 12.8L, Hematocrit 38L, Mean Corpuscular Volume 96, Mean Corpuscular Hemoglobin 33, Mean Corpuscular Hemoglobin Concent 34, Red Cell Distribution Width 15.0H, Platelet Count 163, Mean Platelet Volume 10.2, Immature Granulocyte % (Auto) 1, Neutrophils (%) (Auto) 39L, Lymphocytes (%) (Auto) 48H, Monocytes (%) (Auto) 11, Eosinophils (%) (Auto) 1, Basophils (%) (Auto) 1, Neutrophils # (Auto) 2.1, Lymphocytes # (Auto) 2.6, Monocytes # (Auto) 0.6, Eosinophils # (Auto) 0.0, Basophils # (Auto) 0.0, Immature Granulocyte # (Auto) 0.0, Blood Gas Puncture Site L RAD, Blood Gas Patient Temperature 37.3, Arterial Blood pH 7.31*L, Arterial Blood Partial Pressure CO2 52H, Arterial Blood Partial Pressure O2 55L, Arterial Blood HCO3 25, Arterial Blood Total CO2 26.8, Arterial Blood Oxygen Saturation 90L, Arterial Blood Base Excess -0.2, Johnathon Test YES-POS, Blood Gas Ventilator Setting YES, Blood Gas Inspired Oxygen 40%, Sodium Level 137, Potassium Level 4.3, Chloride Level 104, Carbon Dioxide Level 21, Anion Gap 12, Blood Urea Nitrogen 15, Creatinine 1.43H, Estimat Glomerular Filtration Rate 56, BUN/Creatinine Ratio 10, Glucose Level 158H, Calcium Level 7.4L, Phosphorus Level 3.9, Magnesium Level 1.7 Microbiology 03/12/22 Gram Stain - Final, Resulted 03/12/22 Sputum Culture - Preliminary, Resulted Radiology NAME: WATSON KHALIL [facility] REC#: [id number] PT STATUS: ADM Stan : 1960 PHYSICIAN: CLAUDIO PAYNE MD ADMIT DATE: 03/11/22/ICU Draft Date of Exam:03/12/22 CHEST 1 VIEW, AP/PA ONLY INDICATION: Intubated, shortness of breath and pneumonia. COMPARISONS: 03/11/2022 FINDINGS: Single portable film of the chest shows cardiac contour to be normal. There is prominent central vascularity. Some left perihilar and left basilar infiltrates persist. There is no confluent consolidations. ET tube tip overlies trachea just below level of clavicles. NG tube is beyond the GE junction. Soft tissues and bony thorax are unchanged. IMPRESSION: 1. Improved aeration both lungs with some persistent left basilar infiltrates. There is some mild central venous congestion. 2. Interval intubation with ET tube tip overlies trachea just below level clavicles. NG tube tip is beyond the GE junction. Dictated on workstation # [id number] Dict: 03/12/22 0736 Trans: 03/12/22 0739 [facility] [id number] Interpreted by: MACKENZIE JUAN MD Electronically signed by: ECG Impression ECG Initial ECG Rhythm: Normal Sinus A/P-Cardiology Assessment/Admission Diagnosis Acute resp failure requiring intubation/sedation - management per medical services/eICU Minimal troponin elevation - likely Type 2 MS d/t hypoxia and transient hypotension Documented h/o CAD with stents x 2 (ED note of 03-11-22 by ED USER EXPERIENCE ANALYST) - details unknown COPD per ED documentation - acute on chronic exacerbation Documented h/o HTN Renal insufficiency - undetermined length of time, likely chronic DM per ED documentation HLD per ED documentation Probable NATALIE - advise out pt w/u if this has not already been determined Morbid obesity - BMI 46.5 Discussion and Recomendations Acute on chronic resp failure requiring intubation and sedation - management per medical/eICU services Minimial troponin elevation - likely Type 2 MS d/t hypoxia and transient hypotension H/O CAD has been documented in ED note - details unknown - nursing to call family - request records when we know more details - start ASA Monitor lab Echocardiogram today DVT prophylaxis Replace electrolytes as indicated Further recs will be based on hospital course We would like to thank medical services for this consult FREDDY ERICKSON Mar 12, 2022 10:45
--- NOTE | 2022-03-12 11:20 | History & Physical-Hospitalist ---
History of Present Illness HPI/Chief Complaint Patient is a 61-year-old -[place] male with past medical history of coronary artery disease, hypertension, hyperlipidemia,, COPD who presented to the emergency department due to hypoxia and chest pain. He was seen at the walk-in clinic at [facility] and complained of chest pain to them and he was referred to the emergency department. He has been seen in the ER multiple times in the past week or so but has declined most work-up at those visits. This visit he did allow for labs and x-ray which revealed an NSTEMI. He was admitted for further management. Unfortunately overnight his respiratory status worsened and he required intubation. He is unable to provide me any history due to this and thus all history was obtained from the records. Source: patient Exam Limitations: clinical condition Date Seen 03/12/22 Time Seen by a Provider: 07:45 Attending Physician No,Local Physician PCP Admitting Physician: Jairo Walker MD Attending Physician: Jairo Walker MD Referring Physician Date of Admission Mar 11, 2022 at 21:37 Home Medications & Allergies Home Medications Reviewed patient Home Medication Reconciliation performed by pharmacy medication reconciliations textile science technician and/or nursing. Patients Allergies have been reviewed. Allergies Allergies Coded Allergies codeine (Verified Allergy, Unknown, 02/16/22) haloperidol (Verified Allergy, Unknown, 02/16/22) iodine (Verified Allergy, Unknown, Vomiting, 02/16/22) morphine (Verified Allergy, Unknown, 03/11/22) pregabalin (Verified Allergy, Unknown, 02/16/22) simvastatin (Verified Allergy, Unknown, 02/16/22) Uncoded Allergies CORTICORSTEROIDS ( Allergy, Unknown, 03/11/22) Past Bwdqdxf-Nyhnbm-Lxsgte Hx Patient Social History Tobacco Use?: No Tobacco type used: Cigarettes Smoking Status: Former Smoker Use of E-Cig and/or Vaping dev: No Substance use?: No Alcohol Use?: No Alcohol Frequency: Once in a while Pt feels they are or have been: No Immunizations Up To Date First/Initial COVID19 Vaccinat: NO Tetanus Booster (TDap): Unknown Current Status Advance Directives: No Communicates: Verbally Primary Language: Maori Preferred Spoken Language: Maori Is interpretation needed?: No Implanted or Applied Medical D: None Review of Systems ROS-Unable to Obtain: intubated Constitutional: see HPI Physical Exam Physical Exam Vital Signs Vital Signs - First Documented 03/11/22 03/12/22 15:35 03:42 Temp 36.2 Pulse 96 Resp 16 B/P (MAP) 90/63 (72) Pulse Ox 91 O2 Delivery Nasal Cannula O2 Flow Rate 3.00 FiO2 50 Capillary Refill : Less Than 3 Seconds Height, Weight, BMI Height: '" Weight: lbs. oz. kg; 47.12 BMI Method: General Appearance: Chronically ill, Obese, Other (intubated) HEENT: Moist Mucous Membranes; No Scleral Icterus (L), No Scleral Icterus (R) Neck: Normal Inspection, Supple Respiratory: Decreased Breath Sounds, Other (tachypneic on vent) Cardiovascular: Regular Rate, Rhythm, No Murmur Gastrointestinal: Normal Bowel Sounds, Non Tender, Soft Neurologic/Psychiatric: Other (sedated, appears comfortable ) Results Results/Procedures Labs Laboratory Tests 03/16/22 04:05 03/17/22 03:50 Patient resulted labs reviewed. Imaging: Reviewed Imaging Report [facility] [place] [place] NAME: [facility] REC#: [id number] PT STATUS: ADM Stan : 1960 PHYSICIAN: MIGUEL ANGEL LOPEZ APRN ADMIT DATE: 03/11/22/ICU Signed Date of Exam:03/11/22 CHEST 1 VIEW, AP/PA ONLY INDICATION: Shortness of air, cough, and hypoxia. FINDINGS: Heart size is upper limits. There is mild vascular congestion. There are some perihilar interstitial opacities which may be edema or pneumonia. No pleural fluid. Air within right upper quadrant bowel loops is interposed between the right diaphragm and the right hepatic dome. No free air evident. IMPRESSION: 1. Upper limits heart size, venous caliber, and perihilar interstitial opacities. Lung disease may be edema or pneumonia. 2. No pleural pathology. Dictated by: Dictated on workstation # [id number] Dict: 03/11/22 1621 Trans: 03/12/22804 [id number] Interpreted by: CHINTAN DICKERSON Electronically signed by: CHINTAN DICKERSON 03/12/22804 [facility] [place], [place] NAME: WATSON KHALIL [facility] REC#: [id number] PT STATUS: ADM Stan : 1960 PHYSICIAN: CLAUDIO PAYNE MD ADMIT DATE: 03/11/22/ICU Draft Date of Exam:03/12/22 CHEST 1 VIEW, AP/PA ONLY INDICATION: Intubated, shortness of breath and pneumonia. COMPARISONS: 03/11/2022 FINDINGS: Single portable film of the chest shows cardiac contour to be normal. There is prominent central vascularity. Some left perihilar and left basilar infiltrates persist. There is no confluent consolidations. ET tube tip overlies trachea just below level of clavicles. NG tube is beyond the GE junction. Soft tissues and bony thorax are unchanged. IMPRESSION: 1. Improved aeration both lungs with some persistent left basilar infiltrates. There is some mild central venous congestion. 2. Interval intubation with ET tube tip overlies trachea just below level clavicles. NG tube tip is beyond the GE junction. Dictated on workstation # [id number] Dict: 03/12/2236 Trans: 03/12/22 0739 [facility] [id number] Interpreted by: MACKENZIE JUAN MD Electronically signed by: Assessment/Plan Admission Diagnosis Acute hypercapnic and hypoxic respiratory failure Admission Status: Inpatient Order (span 2 midnights) Reason for Inpatient Admission: see below Assessment and Plan Acute hypercapnic and hypoxic respiratory failure COPD exacerbation with lower respiratory tract infection Sepsis rule out Intubated overnight TeleICU consulted for vent management Cefepime added for ? pneumonia on CXR from ER Cultures ordered Levophed for post intubation hypotension NSTEMI CAD HTN HLD Likely Type II due to above Cardiology consulted, appreciate recs DMII Sliding Scale Insulin DVT ppx Lovenox Diagnosis/Problems Diagnosis/Problems (1) Acute respiratory failure Qualifiers: Respiratory failure complication: hypoxia and hypercapnia Qualified Codes: J96.01 - Acute respiratory failure with hypoxia; J96.02 - Acute respiratory fa ilure with hypercapnia (2) CAD (coronary artery disease) Qualifiers: Coronary Disease-Associated Artery/Lesion type: unspecified vessel or lesion type [place] vs. transplanted heart: unspecified whether [place] or transplanted heart Associated angina: unspecified whether angina present Qualified Codes: I25.10 - Atherosclerotic heart disease of [place] coronary artery without angina pectoris (3) COPD (chronic obstructive pulmonary disease) Qualifiers: COPD type: COPD with acute lower respiratory infection Qualified Codes: J44.0 - Chronic obstructive pulmonary disease with (acute) lower respiratory infection (4) Essential (primary) hypertension Status: Chronic (5) HLD (hyperlipidemia) Status: Chronic Qualifiers: Hyperlipidemia type: unspecified Qualified Codes: E78.5 - Hyperlipidemia, unspecified (6) COPD with acute bronchitis Status: Acute JAIRO WALKER MD Mar 12, 2022 11:20
[2022-03-12] MEDS: ENOXAPARIN 40 MG/0.4 ML (LOVENOX) SYR SQ SCH (12:06)
[2022-03-12] MEDS ORDERED: SUCCINYLCHOLINE INJ 100 MG/5 ML SYR/VIAL INJ ONE (13:52)
[2022-03-12] MEDS ORDERED: ROCURONIUM 50 MG/5 ML (ZEMURON) VIAL IV ONE (13:52)
[2022-03-12] MEDS ORDERED: ETOMIDATE IV SOLN 20 MG/10 ML VIAL IV ONE (13:52)
[2022-03-12] MEDS ORDERED: MIDAZOLAM 5 MG/5 ML (VERSED) VIAL IJ ONE (13:52)
--- NOTE | 2022-03-12 18:34 | Consultation-Cardiology ---
HPI-Cardiology Cardiology Consultation: Date of Consultation 03/12/22 Time Seen by a Provider: 18:05 Date of Admission Attending Physician No,Local Physician Admitting Physician Admitting Physician: Lesly Walker MD Attending Physician: Lesly Walker MD Consulting Physician NERISSA GARCIA MD, FACP, FACC, FSCAI, CCDS HPI: Chief Complaint: Reason for Card consult: Resp failure, Troponin elevation Mr. Bajwa is a 61 yr old male admitted to ICU 8 from the ED. He is currently intubated and sedated. Report from the nurse and review of chart states he was seen at [facility] yesterday. He was in the waiting room and began to cough. He had reported increasing SOB. Staff at [facility] found is oxygen sat to be in the 80's. He was then transported to [facility] ED. He continued to have low oxygen sats. Sats did improved with supplemental oxygen and SVN. He was admitted to [facility]. Overnight he became increasingly anxious and SOB. He was then transferred to ICU 8. He continued to have increasing SOB; he was then sedated and intubated. There is no family at the bedside. QLM-[id number]-Fwlvju Hx Patient Social History Smoking Status: Former Smoker Have you traveled recently?: No Alcohol Use?: No Pt feels they are or have been: No Tobacco type used: Cigarettes Past Medical History PMH As described under Assessment. Family Medical History Family Medical History: Unable to obtain d/t intubation/sedation Allergies and Home Medications Allergies Coded Allergies: codeine (Verified Allergy, Unknown, 02/16/22) haloperidol (Verified Allergy, Unknown, 02/16/22) iodine (Verified Allergy, Unknown, Vomiting, 02/16/22) morphine (Verified Allergy, Unknown, 03/11/22) pregabalin (Verified Allergy, Unknown, 02/16/22) simvastatin (Verified Allergy, Unknown, 02/16/22) Uncoded Allergies: CORTICORSTEROIDS (Allergy, Unknown, 03/11/22) Patient Home Medication List Home Medication List Reviewed: Yes No Active Prescriptions or Reported Meds Physical Exam-Cardiology Physical Exam Vital Signs/I&O 03/12/22 03/12/22 03/12/22 03/12/22 07:00 07:00 07:16 07:58 Temp 36.8 Pulse 75 83 77 Resp 42 19 B/P (MAP) 149/93 (111) Pulse Ox 95 93 O2 Delivery Mechanical Ventilator O2 Flow Rate 50.00 FiO2 50 03/12/22 03/12/22 03/12/22 03/12/22 08:00 08:00 08:08 08:13 Temp 37.1 Pulse 83 80 Resp 50 B/P (MAP) 190/138 (155) 153/68 Pulse Ox 95 95 O2 Delivery Mechanical Ventilator Mechanical Ventilator O2 Flow Rate 50.00 FiO2 50 03/12/22 03/12/22 03/12/22 03/12/22 09:00 10:00 10:06 10:07 Pulse 77 74 74 75 Resp 18 22 22 B/P (MAP) 121/60 Pulse Ox 97 96 94 O2 Delivery Mechanical Ventilator Mechanical Ventilator O2 Flow Rate 50.00 50.00 FiO2 50 03/12/22 03/12/22 03/12/22 03/12/22 10:08 11:00 12:00 12:00 Temp 36.8 Pulse 74 80 Resp 18 B/P (MAP) 135/74 Pulse Ox 95 96 O2 Delivery Mechanical Ventilator Mechanical Ventilator O2 Flow Rate 50.00 FiO2 50 03/12/22 03/12/22 03/12/22 03/12/22 12:00 12:06 12:15 12:22 Pulse 79 80 74 80 Resp 27 B/P (MAP) 115/68 135/74 115/68 Pulse Ox 95 O2 Delivery Mechanical Ventilator O2 Flow Rate 50.00 03/12/22 03/12/22 03/12/22 03/12/22 12:22 13:00 13:00 13:25 Pulse 80 76 82 76 Resp 22 B/P (MAP) 115/68 115/68 Pulse Ox 96 O2 Delivery Mechanical Ventilator O2 Flow Rate 50.00 03/12/22 03/12/22 03/12/22 03/12/22 13:30 13:51 14:00 14:08 Pulse 76 74 82 74 Resp 23 22 B/P (MAP) 115/68 135/74 Pulse Ox 96 92 O2 Delivery Mechanical Ventilator O2 Flow Rate 40.00 FiO2 50 03/12/22 03/12/22 03/12/22 03/12/22 14:15 15:00 16:00 16:08 Temp 37.0 Pulse 74 85 Resp 22 B/P (MAP) 135/74 Pulse Ox 91 96 O2 Delivery Mechanical Ventilator Mechanical Ventilator O2 Flow Rate 40.00 FiO2 40 03/12/22 03/12/22 03/12/22 03/12/22 16:26 17:09 17:09 17:09 Pulse 85 79 79 79 B/P (MAP) 135/74 130/62 130/62 130/62 03/12/22 17:48 Pulse 79 B/P (MAP) 120/58 03/12/22 00:00 Intake Total 0 ml Output Total 0 ml Balance 0 ml Capillary Refill : Less Than 3 Seconds Constitutional: other (intubated and sedated) HEENT: No xanthelasmas are seen Neck: No carotid bruit; carotid pulses are 2 + bilaterally Respiratory: other (intubated; good air entry) Cardiovascular: regular rate-rhythm Gastrointestinal: soft, round, audible bowel sounds Extremities: no lower extremity edema bilateral Neurologic/Psychiatric: other (unable to cooperate with neuro exam d/t sedation) Skin: No rash on exposed areas, No ulcerations on exposed areas Data Review Labs Laboratory Tests 03/11/22 18:54: Total Creatine Kinase 778H, Myoglobin 379.2H, Troponin I 0.034H 03/12/22 00:57: Troponin I 0.045H 03/12/22 01:45: Blood Gas Puncture Site RR, Blood Gas Patient Temperature 101.7, Arterial Blood pH 7.35L, Arterial Blood Partial Pressure CO2 48H, Arterial Blood Partial Pressure O2 66L, Arterial Blood HCO3 26, Arterial Blood Total CO2 27.3, Arterial Blood Oxygen Saturation 95, Arterial Blood Base Excess 0.6, Johnathon Test YES-POS, Blood Gas Ventilator Setting NO, Blood Gas Inspired Oxygen 40% 03/12/22 05:36: Glucometer 152H 03/12/22 05:40: Blood Gas Puncture Site ARTLINE, Blood Gas Patient Temperature UNK, Arterial Blood pH 7.28*L, Arterial Blood Partial Pressure CO2 59H, Arterial Blood Partial Pressure O2 64L, Arterial Blood HCO3 27, Arterial Blood Total CO2 28.4, Arterial Blood Oxygen Saturation 93L, Arterial Blood Base Excess 0.6, Johnathon Test ARTLINE, Blood Gas Ventilator Setting NO, Blood Gas Inspired Oxygen 40% 03/12/22 06:00: White Blood Count 5.5, Red Blood Count 4.19L, Hemoglobin 13.7, Hematocrit 40, Mean Corpuscular Volume 96, Mean Corpuscular Hemoglobin 33, Mean Corpuscular Hemoglobin Concent 34, Red Cell Distribution Width 14.7H, Platelet Count 219, Mean Platelet Volume 10.2, Immature Granulocyte % (Auto) 1, Neutrophils (%) (Auto) 53, Lymphocytes (%) (Auto) 37, Monocytes (%) (Auto) 9, Eosinophils (%) (Auto) 0, Basophils (%) (Auto) 0, Neutrophils # (Auto) 2.9, Lymphocytes # (Auto) 2.0, Monocytes # (Auto) 0.5, Eosinophils # (Auto) 0.0, Basophils # (Auto) 0.0, Immature Granulocyte # (Auto) 0.0, Sodium Level 134L, Potassium Level 4.6, Chloride Level 100, Carbon Dioxide Level 21, Anion Gap 13, Blood Urea Nitrogen 13, Creatinine 1.46H, Estimat Glomerular Filtration Rate 54, BUN/Creatinine Ratio 9, Glucose Level 172H, Calcium Level 8.3L, Corrected Calcium 8.6, Magnesium Level 1.7, Total Bilirubin 0.7, Aspartate Amino Transf (AST/SGOT) 38H, Alanine Aminotransferase (ALT/SGPT) 30, Alkaline Phosphatase 63, Total Protein 6.1L, Albumin 3.6, Triglycerides Level 73 03/12/22 08:25: Urine Color YELLOW, Urine Clarity CLEAR, Urine pH 5.5, Urine Specific [place] >=1.030, Urine Protein TRACEH, Urine Glucose (UA) NEGATIVE, Urine Ketones NEGATIVE, Urine Nitrite NEGATIVE, Urine Bilirubin 1+H, Urine Urobilinogen 0.2, Urine Leukocyte Esterase TRACEH, Urine RBC (Auto) NEGATIVE, Urine RBC NONE, Urine WBC 0-2, Urine Squamous Epithelial Cells NONE, Urine Crystals NONE, Urine Bacteria NEGATIVE, Urine Casts PRESENT, Urine Hyaline Casts RARE, Urine Mucus NEGATIVE, Urine Culture Indicated NO, Lactic Acid Level 0.86 03/12/22 11:13: Glucometer 165H 03/12/22 16:40: Glucometer 156H A/P-Cardiology Assessment/Admission Diagnosis Acute resp failure requiring intubation/sedation - management per medical services/eICU Ac systolic CHF - echo on 03/12/22: LVEF 35-40%, mod diffuse hypokinesis of LV Minimal troponin elevation - Type 2 [place] d/t hypoxia and transient hypotension Documented h/o CAD with stents x 2 (ED note of 03-11-22 by ED MEDICAL AND HEALTH SERVICES MANAGER) - details unknown COPD per ED documentation - acute on chronic exacerbation Documented h/o HTN Renal insufficiency - undetermined length of time, likely chronic DM per ED documentation HLD per ED documentation Probable NATALIE - advise out pt w/u if this has not already been determined Morbid obesity - BMI 46.5 Discussion and Recomendations * Treat ac CHF with diuretics * Add iv enalaprilat and beta-mj if tolerated by bp * Continue ASA because of h/o CAD (no details known) * Try to obtain cardiac records * Consider spironolactone and SGLT2-inhib when extubated and able to take oral meds * Sleep studies when able to * DVT prophylaxis * Monitor labs closely NERISSA GARCIA MD FACP [facility] CCDS Mar 12, 2022 18:34
[2022-03-12] MEDS ORDERED: FUROSEMIDE 40 MG/4 ML INJ (LASIX) IVP NR (18:45)
[2022-03-12] MEDS ORDERED: NS IV 500 ML 500 ML IV PRN (20:00)
[2022-03-12] MEDS: NOREPINEPHRINE 16 MG in NS (IVPB) 234 ML IV SCH (20:32)
[2022-03-12] MEDS: ENALAPRILAT 2.5 MG/2 ML (VASOTEC) VIAL IV SCH (20:33)
[2022-03-13] MEDS: meTOprolol 5 MG/5 ML (LOPRESSOR) VIAL IV SCH ×4 (00:06→16:54)
[2022-03-13] MEDS: ENOXAPARIN 40 MG/0.4 ML (LOVENOX) SYR SQ SCH ×2 (00:06→11:40)
[2022-03-13] MEDS: DexMEDEtomidine 250 ML DRIP 250 ML IV SCH ×6 (01:23→22:08)
[2022-03-13] MEDS: PROPOFOL DRIP (ICU) 100 ML IV SCH ×7 (01:24→20:12)
[2022-03-13] MEDS: CEFEPIME INJECTION 1,000 MG in NS (IVPB) 50 ML IV SCH ×4 (02:13→20:11)
[2022-03-13 03:13] VITALS: BP 99/54
[2022-03-13] MEDS: RT-ALBUTEROL/IPRATROPIUM 3 ML (DUONEB) VIAL INH SCH ×6 (03:13→22:36)
[2022-03-13 04:33] LABS: ABG BASE EXCESS -0.2 MMOL/L (-2.5-2.5); ABG OXYGEN SATURATION 90 % (94-100); ABG PCO2 52 MMHG (35-45); ABG PO2 55 MMHG (79-93); ABG TCO2 26.8 MMOL/L (21.0-31.0); ALLENS TEST YES-POS; VENTILATOR YES
[2022-03-13 04:34] LABS: INSPIRED O2 40%; PATIENT TEMP 37.3
[2022-03-13 04:36] LABS: BASOPHILS % (AUTO) 1 % (0-10); EOSINOPHILS % (AUTO) 1 % (0-10); HEMATOCRIT 38 % (40-54); HEMOGLOBIN 12.8 g/dL (13.3-17.7); LYMPHOCYTES # (AUTO) 2.6 10^3/uL (1.0-4.0); LYMPHOCYTES % (AUTO) 48 % (12-44); MEAN CORPUSCULAR HEMOGLOBIN 33 pg (25-34); MEAN CORPUSCULAR HGB CONC 34 g/dL (32-36); MEAN CORPUSCULAR VOLUME 96 fL (80-99); MEAN PLATELET VOLUME 10.2 fL (9.0-12.2); MONOCYTES # (AUTO) 0.6 10^3/uL (0.0-1.0); MONOCYTES % (AUTO) 11 % (0-12); NEUTROPHILS # (AUTO) 2.1 10^3/uL (1.8-7.8); NEUTROPHILS % (AUTO) 39 % (42-75); PLATELET COUNT 163 10^3/uL (130-400); WHITE BLOOD COUNT 5.5 10^3/uL (4.3-11.0)
[2022-03-13 04:56] LABS: ABG PH 7.31 (7.37-7.43); CALCIUM 7.4 MG/DL (8.5-10.1); CREATININE SERUM 1.43 MG/DL (0.60-1.30); MAGNESIUM 1.7 MG/DL (1.6-2.4); PHOSPHORUS 3.9 MG/DL (2.3-4.7); POTASSIUM 4.3 MMOL/L (3.6-5.0)
[2022-03-13] MEDS: POTASSIUM CL 10MEQ/50ML IVPB 50 ML IV SCH (05:04)
[2022-03-13] MEDS: KCL 20 MEQ TAB (K-DUR) PO SCH (05:05)
[2022-03-13] MEDS: MAGNESIUM 1 GM/100 ML IVPB 100 ML IV SCH ×2 (05:06→05:28)
[2022-03-13] MEDS: fentaNYL DRIP PRE-MIX 250 ML IV SCH ×2 (05:27→15:08)
[2022-03-13 07:14] VITALS: BP 89/90
[2022-03-13] MEDS: ENALAPRILAT 2.5 MG/2 ML (VASOTEC) VIAL IV SCH ×2 (07:45→20:11)
[2022-03-13] MEDS: ASPIRIN E.C. 81 MG (ECOTRIN) TAB PO SCH (07:46)
[2022-03-13] MEDS: FAMOTIDINE 20 MG (PEPCID) TABLET PO SCH ×2 (08:14→20:10)
[2022-03-13] MEDS: FUROSEMIDE 40 MG/4 ML INJ (LASIX) IVP SCH (08:14)
--- NOTE | 2022-03-13 08:31 | Progress Note - Hospitalist ---
Focused Exam Lactate Level 03/12/22 08:25: Lactic Acid Level 0.86 Objective Exam Vital Signs Vital Signs Date Time Temp Pulse Resp B/P (MAP) Pulse Ox O2 Delivery O2 Flow Rate FiO2 03/14/22 13:00 69 03/14/22 12:06 100/49 03/14/22 12:00 24 92 Mechanical Ventilator 40.00 03/14/22 12:00 35.9 03/14/22 10:44 40 Capillary Refill : Less Than 3 Seconds Results/Procedures Lab Laboratory Tests 03/14/22 03:55 Patient resulted labs reviewed. Imaging: Reviewed Imaging Report Assessment/Plan Assessment and Plan Assess & Plan/Chief Complaint Acute hypercapnic and hypoxic respiratory failure COPD exacerbation with lower respiratory tract infection Sepsis rule out Intubated overnight TeleICU consulted for vent management Cefepime added for ? pneumonia on CXR from ER Cultures ordered Levophed for post intubation hypotension NSTEMI CAD HTN HLD Likely Type II due to above Cardiology consulted, appreciate recs DMII Sliding Scale Insulin DVT ppx Lovenox Critical Care Critically Ill Patient Diagnosis/Problems Diagnosis/Problems (1) Acute respiratory failure Qualifiers: Respiratory failure complication: hypoxia and hypercapnia Qualified Codes: J96.01 - Acute respiratory failure with hypoxia; J96.02 - Acute respiratory failure with hypercapnia (2) CAD (coronary artery disease) Qualifiers: Coronary Disease-Associated Artery/Lesion type: unspecified vessel or lesion type [place] vs. transplanted heart: unspecified whether [place] or transplanted heart Associated angina: unspecified whether angina present Qualified Codes: I25.10 - Atherosclerotic heart disease of [place] coronary artery without angina pectoris (3) COPD (chronic obstructive pulmonary disease) Qualifiers: COPD type: COPD with acute lower respiratory infection Qualified Codes: J44.0 - Chronic obstructive pulmonary disease with (acute) lower respiratory infection (4) Essential (primary) hypertension Status: Chronic (5) HLD (hyperlipidemia) Status: Chronic Qualifiers: Hyperlipidemia type: unspecified Qualified Codes: E78.5 - Hyperlipidemia, unspecified (6) COPD with acute bronchitis Status: Acute JAIRO MURILLO MD Mar 13, 2022 08:31
--- NOTE | 2022-03-13 08:49 | Tele-ICU Progress Note ---
Subjective Date Seen by a Provider: Mar 13, 2022 Subjective/Events-last exam This virtual visit was conducted using real time audio/video. Thank you for asking us to see this patient for respiratory insufficiency due to AECOPD/CHF, sepsis. Intub 03:15 03/12/2022. Possible NATALIE/OHS. PMH: COPD, htn, DM2, EF 35-40%, CAD/stents, HL, CRI. PE: VSS. Sedated on vent. O2 sat 93% on AC 22/500/40%/+5. HEENT: No obvious masses, adenopathy or JVD. Chest: Coarse w wheezing on auscultation. CV: RRR S1 S2 No murmur or added sounds. Abd: Non-tender. Bowel sounds Y. : Unremarkable. Jenkins Y. DORMITORY COUNSELOR/psychiatric: Grossly intact. No obvious focal findings. Extremities: 1+ edema. Capillary refill < 3 seconds. Skin: unremarkable. Results: Elevated Creat 1.43. Decreased Hb 12.8. B.31/52/55 on 40%/+5. CXR: B congestion, hyperinflation.. Available chart/ vitals / labs / images reviewed. Video assessment done using teleICU camera, rest of exam as per RN. A/P: Respiratory insufficiency: Continue present management with vent, Duon., Prec., Prop., fent. No SBT w hypoxia, wheezes, agit. Monitor for increasing oxygenation needs. Critical Care: critically ill patient. Cont. Levo., Lasix, Pepcid, ASA, ABX, Bertrand. Discussed with EMMANUELLE Smith. Asked RN to reach out to eICU if any questions or concerns later. Time spent with patient/coordination of care with other health professionals (mins): 28 Sepsis Event Evaluation Height, Weight, BMI Height: '" Weight: lbs. oz. kg; 46.89 BMI Method: Focused Exam Lactate Level 03/12/22 08:25: Lactic Acid Level 0.86 Exam Exam Patient acknowledged, consented, and participated in this virtual visit which was conducted using real time audio/video Vital Signs Date Time Temp Pulse Resp B/P (MAP) Pulse Ox O2 Delivery O2 Flow Rate FiO2 03/13/22 08:31 40 03/13/22 08:15 74 110/56 03/13/22 08:03 37.2 03/13/22 07:30 73 109/56 03/13/22 07:14 70 22 90 40 03/13/22 07:00 74 03/13/22 06:00 73 22 93 Mechanical Ventilator 40.00 03/13/22 05:27 75 99/54 03/13/22 05:25 75 99/54 03/13/22 05:25 75 99/54 03/13/22 05:18 75 99/54 03/13/22 05:04 40 03/13/22 05:00 74 39 93 Mechanical Ventilator 40.00 03/13/22 04:21 93 Mechanical Ventilator 40 03/13/22 04:20 37.3 24 Mechanical Ventilator 40.00 03/13/22 04:00 75 16 93 Mechanical Ventilator 40.00 03/13/22 03:13 73 22 92 40 03/13/22 03:00 73 21 92 Mechanical Ventilator 40.00 03/13/22 02:47 22 Mechanical Ventilator 40.00 03/13/22 02:47 75 114/59 03/13/22 02:00 74 23 93 Mechanical Ventilator 40.00 03/13/22 02:00 40 03/13/22 01:24 75 114/59 03/13/22 01:23 75 114/59 03/13/22 01:00 76 22 94 Mechanical Ventilator 40.00 03/13/22 01:00 76 03/13/22 00:43 75 114/59 03/13/22 00:43 75 114/59 03/13/22 00:24 94 Mechanical Ventilator 40 03/13/22 00:07 22 Mechanical Ventilator 40.00 03/13/22 00:07 37.0 03/13/22 00:00 76 11 92 Mechanical Ventilator 40.00 03/12/22 23:50 37.3 03/12/22 23:00 78 22 92 Mechanical Ventilator 40.00 03/12/22 22:49 75 114/59 03/12/22 22:12 75 114/59 03/12/22 22:03 75 22 93 40 03/12/22 22:00 75 23 93 Mechanical Ventilator 40.00 03/12/22 21:46 37.1 03/12/22 21:14 40 03/12/22 21:00 75 22 92 Mechanical Ventilator 40.00 03/12/22 20:42 80 125/57 03/12/22 20:42 80 125/57 03/12/22 20:42 80 125/57 03/12/22 20:32 80 125/57 03/12/22 20:20 80 125/57 03/12/22 20:00 78 22 92 Mechanical Ventilator 40.00 03/12/22 20:00 91 Mechanical Ventilator 40 03/12/22 19:44 36.4 03/12/22 19:00 80 22 93 Mechanical Ventilator 40.00 03/12/22 19:00 Mechanical Ventilator 40.00 03/12/22 19:00 80 22 93 Mechanical Ventilator 40.00 03/12/22 19:00 80 03/12/22 18:38 77 125/57 03/12/22 18:38 77 125/57 03/12/22 18:28 77 22 92 40 03/12/22 18:00 79 22 92 Mechanical Ventilator 40.00 03/12/22 17:48 79 120/58 03/12/22 17:12 93 Mechanical Ventilator 40 03/12/22 17:09 79 130/62 03/12/22 17:09 79 130/62 03/12/22 17:09 79 130/62 03/12/22 17:00 80 22 93 Mechanical Ventilator 40.00 03/12/22 16:26 85 135/74 03/12/22 16:08 96 Mechanical Ventilator 40 03/12/22 16:00 37.0 03/12/22 16:00 81 22 92 Mechanical Ventilator 40.00 03/12/22 15:00 85 22 91 Mechanical Ventilator 40.00 03/12/22 14:15 74 135/74 03/12/22 14:08 74 135/74 03/12/22 14:00 82 22 92 Mechanical Ventilator 40.00 03/12/22 13:51 74 23 96 50 03/12/22 13:30 76 115/68 03/12/22 13:25 76 115/68 03/12/22 13:00 82 03/12/22 13:00 76 22 96 Mechanical Ventilator 50.00 03/12/22 12:22 80 115/68 03/12/22 12:22 80 115/68 03/12/22 12:15 74 135/74 03/12/22 12:06 80 115/68 03/12/22 12:00 79 27 95 Mechanical Ventilator 50.00 03/12/22 12:00 36.8 03/12/22 12:00 96 Mechanical Ventilator 50 03/12/22 11:00 80 18 95 Mechanical Ventilator 50.00 03/12/22 10:08 74 135/74 03/12/22 10:07 75 22 94 50 03/12/22 10:06 74 121/60 03/12/22 10:00 74 22 96 Mechanical Ventilator 50.00 03/12/22 09:00 77 18 97 Mechanical Ventilator 50.00 I & O 03/13/22 07:00 Intake Total 3700 ml Output Total 2675 ml Balance 1025 ml Height & Weight Height: '" Weight: lbs. oz. kg; 46.89 BMI Method: General Appearance: Chronically ill, Obese, Other (intubated) HEENT: Moist Mucous Membranes; No Scleral Icterus (L), No Scleral Icterus (R) Neck: Normal Inspection, Supple Respiratory: Decreased Breath Sounds, Other (tachypneic on vent) Cardiovascular: Regular Rate, Rhythm, No Murmur Capillary Refill: Less Than 3 Seconds Gastrointestinal: normal bowel sounds, non tender, soft Extremity: No Pedal Edema Neurologic/Psychiatric: Other (sedated, appears comfortable ) Results Lab Laboratory Tests 03/11/22 15:54 03/12/22 06:00 03/13/22 04:22 Assessment/Plan Assessment/Plan See free text. Critical Care: Ventilator Management JAKUB WEISS MD Mar 13, 2022 08:49
--- NOTE | 2022-03-13 10:26 | Progress Note - Cardiology ---
Cardiology SOAP Progress Note Subjective: Remains intubated and sedated Objective: I&O/Vital Signs 03/13/22 03/13/22 03/13/22 03/13/22 19:35 20:00 20:00 20:00 Temp 36.6 Pulse 77 Resp 23 B/P (MAP) Pulse Ox 93 93 O2 Delivery Mechanical Ventilator Mechanical Ventilator O2 Flow Rate 40.00 FiO2 40 40 03/13/22 03/13/22 03/13/22 03/13/22 20:12 20:55 21:00 22:00 Pulse 71 71 75 70 Resp 22 B/P (MAP) 117/55 117/55 Pulse Ox 94 95 O2 Delivery Mechanical Ventilator Mechanical Ventilator O2 Flow Rate 40.00 40.00 03/13/22 03/13/22 03/13/22 03/13/22 22:08 22:25 22:36 23:00 Pulse 71 68 68 70 Resp B/P (MAP) 117/55 124/63 Pulse Ox 95 95 O2 Delivery Mechanical Ventilator O2 Flow Rate 40.00 FiO2 40 03/14/22 03/14/22 03/14/22 03/14/22 00:00 00:11 00:22 00:22 Pulse 69 68 B/P (MAP) 124/63 Pulse Ox 95 94 O2 Delivery Mechanical Ventilator Mechanical Ventilator O2 Flow Rate 40.00 FiO2 40 40 03/14/22 03/14/22 03/14/22 03/14/22 00:23 01:00 01:00 01:12 Temp 36.8 Pulse 66 66 68 Resp B/P (MAP) 124/63 Pulse Ox 94 O2 Delivery Mechanical Ventilator Mechanical Ventilator O2 Flow Rate 40.00 40.00 03/14/22 03/14/22 03/14/22 03/14/22 02:00 02:01 02:04 02:25 Pulse 64 68 68 64 Resp B/P (MAP) 124/63 124/63 Pulse Ox 96 96 O2 Delivery Mechanical Ventilator O2 Flow Rate 40.00 FiO2 40 03/14/22 03/14/22 03/14/22 03/14/22 03:00 03:46 03:55 03:55 Temp 35.1 Pulse 63 64 Resp 22 B/P (MAP) 123/62 Pulse Ox 96 O2 Delivery Mechanical Ventilator O2 Flow Rate 40.00 FiO2 40 03/14/22 03/14/22 03/14/22/1/22 03:56 04:00 04:36 04:36 Pulse 61 64 64 Resp 22 B/P (MAP) 123/62 123/62 Pulse Ox 95 96 O2 Delivery Mechanical Ventilator Mechanical Ventilator O2 Flow Rate 40.00 FiO2 40 03/14/22 03/14/22 03/14/22 03/14/22 05:00 05:19 05:26 06:00 Pulse 62 64 64 62 Resp 22 22 B/P (MAP) 123/62 123/62 Pulse Ox 93 94 O2 Delivery Mechanical Ventilator Mechanical Ventilator O2 Flow Rate 40.00 40.00 03/14/22 03/14/22 03/14/22 06:10 06:11 07:03 Pulse 62 62 63 Resp 22 B/P (MAP) 123/62 123/62 Pulse Ox 95 FiO2 40 03/14/22 00:00 Intake Total 1950 ml Output Total 1700 ml Balance 250 ml Constitutional: other (intubated and sedated) Respiratory: other (intubated; good air entry) Cardiovascular: regular rate-rhythm Gastrointestional: soft, round, audible bowel sounds Extremities: no lower extremity edema bilateral Neurologic/Psychiatric: other (unable to cooperate with neuro exam d/t sedation) Skin: No rash on exposed areas, No ulcerations on exposed areas Results/Procedures: Labs Laboratory Tests 03/13/22 12:03: Glucometer 147H 03/13/22 18:42: Glucometer 114H 03/14/22 00:29: Glucometer 134H 03/14/22 03:55: White Blood Count 5.5, Red Blood Count 3.96L, Hemoglobin 12.9L, Hematocrit 38L, Mean Corpuscular Volume 97, Mean Corpuscular Hemoglobin 33, Mean Corpuscular Hemoglobin Concent 34, Red Cell Distribution Width 15.2H, Platelet Count 153, Mean Platelet Volume 10.0, Immature Granulocyte % (Auto) 1, Neutrophils (%) (A uto) 41L, Lymphocytes (%) (Auto) 47H, Monocytes (%) (Auto) 9, Eosinophils (%) (Auto) 2, Basophils (%) (Auto) 1, Neutrophils # (Auto) 2.3, Lymphocytes # (Auto) 2.6, Monocytes # (Auto) 0.5, Eosinophils # (Auto) 0.1, Basophils # (Auto) 0.0, Immature Granulocyte # (Auto) 0.0, Sodium Level 136, Potassium Level 4.0, Chloride Level 107, Carbon Dioxide Level 19L, Anion Gap 10, Blood Urea Nitrogen 15, Creatinine 1.12, Estimat Glomerular Filtration Rate 75, BUN/Creatinine Ratio 13, Glucose Level 140H, Calcium Level 7.4L, Phosphorus Level 3.5, Magnesium Level 2.0, Triglycerides Level 74 03/14/22 04:01: Blood Gas Puncture Site LRAD, Blood Gas Patient Temperature 37.1, Arterial Blood pH 7.29*L, Arterial Blood Partial Pressure CO2 51H, Arterial Blood Partial Pressure O2 65L, Arterial Blood HCO3 24, Arterial Blood Total CO2 25.8, Arterial Blood Oxygen Saturation 93L, Arterial Blood Base Excess -1.4, Johnathon Test YES- POS, Blood Gas Ventilator Setting YES, Blood Gas Inspired Oxygen 40% Microbiology 03/12/22 Blood Culture - Preliminary, Resulted No growth 03/12/22 Gram Stain - Final, Resulted 03/12/22 Sputum Culture - Preliminary, Resulted Usual upper respiratory davi A/P: Assessment: Acute resp failure requiring intubation/sedation - management per medical services/eICU Ac systolic CHF - echo on 03/12/22: LVEF 35-40%, mod diffuse hypokinesis of LV Minimal troponin elevation - Type 2 [place] d/t hypoxia and transient hypotension Documented h/o CAD with stents x 2 (ED note of 03-11-22 by ED ENGINEERING FACULTY MEMBER) - details unknown COPD per ED documentation - acute on chronic exacerbation Documented h/o HTN Renal insufficiency - undetermined length of time, likely chronic DM per ED documentation HLD per ED documentation Probable NATALIE - advise out pt w/u if this has not already been determined Morbid obesity - BMI 46.5 Plan: * Treat ac CHF with diuretics * iv enalaprilat and beta-mj if tolerated by bp (thus far BP has not allowed) * Continue ASA because of h/o CAD (no details known) * Try to obtain cardiac records * Consider spironolactone and SGLT2-inhib when extubated and able to take oral meds * Sleep studies when able to * Continue DVT prophylaxis * Monitor labs closely FREDDY ERICKSON Mar 13, 2022 10:26
[2022-03-13 10:35] VITALS: BP 118/58
--- NOTE | 2022-03-13 10:37 | Progress Note - Cardiology ---
Cardiology SOAP Progress Note Subjective: Remains intubated and sedated Family x 2 at the bedside Objective: I&O/Vital Signs 03/13/22 03/13/22 03/13/22 03/13/22 19:35 20:00 20:00 20:00 Temp 36.6 Pulse 77 Resp 23 B/P (MAP) Pulse Ox 93 93 O2 Delivery Mechanical Ventilator Mechanical Ventilator O2 Flow Rate 40.00 FiO2 40 40 03/13/22 03/13/22 03/13/22 03/13/22 20:12 20:55 21:00 22:00 Pulse 71 71 75 70 Resp 22 B/P (MAP) 117/55 117/55 Pulse Ox 94 95 O2 Delivery Mechanical Ventilator Mechanical Ventilator O2 Flow Rate 40.00 40.00 03/13/22 03/13/22 03/13/22 03/13/22 22:08 22:25 22:36 23:00 Pulse 71 68 68 70 Resp B/P (MAP) 117/55 124/63 Pulse Ox 95 95 O2 Delivery Mechanical Ventilator O2 Flow Rate 40.00 FiO2 40 03/14/22 03/14/22 03/14/22 03/14/22 00:00 00:11 00:22 00:22 Pulse 69 68 B/P (MAP) 124/63 Pulse Ox 95 94 O2 Delivery Mechanical Ventilator Mechanical Ventilator O2 Flow Rate 40.00 FiO2 40 40 03/14/22 03/14/22 03/14/22 03/14/22 00:23 01:00 01:00 01:12 Temp 36.8 Pulse 66 66 68 Resp B/P (MAP) 124/63 Pulse Ox 94 O2 Delivery Mechanical Ventilator Mechanical Ventilator O2 Flow Rate 40.00 40.00 03/14/22 03/14/22 03/14/22 03/14/22 02:00 02:01 02:04 02:25 Pulse 64 68 68 64 Resp B/P (MAP) 124/63 124/63 Pulse Ox 96 96 O2 Delivery Mechanical Ventilator O2 Flow Rate 40.00 FiO2 40 03/14/22 03/14/22 03/14/22 03/14/22 03:00 03:46 03:55 03:55 Temp 35.1 Pulse 63 64 Resp 22 B/P (MAP) 123/62 Pulse Ox 96 O2 Delivery Mechanical Ventilator O2 Flow Rate 40.00 FiO2 40 03/14/22 03/14/22 03/14/22 03/14/22 03:56 04:00 04:36 04:36 Pulse 61 64 64 Resp 22 B/P (MAP) 123/62 123/62 Pulse Ox 95 96 O2 Delivery Mechanical Ventilator Mechanical Ventilator O2 Flow Rate 40.00 FiO2 40 03/14/22 03/14/22 03/14/22 03/14/22 05:00 05:19 05:26 06:00 Pulse 62 64 64 62 Resp 22 22 B/P (MAP) 123/62 123/62 Pulse Ox 93 94 O2 Delivery Mechanical Ventilator Mechanical Ventilator O2 Flow Rate 40.00 40.00 03/14/22 03/14/22 03/14/22 06:10 06:11 07:03 Pulse 62 62 63 Resp 22 B/P (MAP) 123/62 123/62 Pulse Ox 95 FiO2 40 03/14/22 00:00 Intake Total 1950 ml Output Total 1700 ml Balance 250 ml Constitutional: other (intubated and sedated) Respiratory: other (intubated; good air entry) Cardiovascular: regular rate-rhythm Gastrointestional: soft, round, audible bowel sounds Extremities: no lower extremity edema bilateral Neurologic/Psychiatric: other (unable to cooperate with neuro exam d/t sedation) Skin: No rash on exposed areas, No ulcerations on exposed areas Results/Procedures: Labs Laboratory Tests 03/13/22 12:03: Glucometer 147H 03/13/22 18:42: Glucometer 114H 03/14/22 00:29: Glucometer 134H 03/14/22 03:55: White Blood Count 5.5, Red Blood Count 3.96L, Hemoglobin 12.9L, Hematocrit 38L, Mean Corpuscular Volume 97, Mean Corpuscular Hemoglobin 33, Mean Corpuscular Hemoglobin Concent 34, Red Cell Distribution Width 15.2H, Platelet Count 153, Mean Platelet Volume 10.0, Immature Granulocyte % (Auto) 1, Neutrophils (%) (Auto) 41L, Lymphocytes (%) (Auto) 47H, Monocytes (%) (Auto) 9, Eosinophils (%) (Auto) 2, Basophils (%) (Auto) 1, Neutrophils # (Auto) 2.3, Lymphocytes # (Auto) 2.6, Monocytes # (Auto) 0.5, Eosinophils # (Auto) 0.1, Basophils # (Auto) 0.0, Immature Granulocyte # (Auto) 0.0, Sodium Level 136, Potassium Level 4.0, Chloride Level 107, Carbon Dioxide Level 19L, Anion Gap 10, Blood Urea Nitrogen 15, Creatinine 1.12, Estimat Glomerular Filtration Rate 75, BUN/Creatinine Ratio 13, Glucose Level 140H, Calcium Level 7.4L, Phosphorus Level 3.5, Magnesium Level 2.0, Triglycerides Level 74 03/14/22 04:01: Blood Gas Puncture Site LRAD, Blood Gas Patient Temperature 37.1, Arterial Blood pH 7.29*L, Arterial Blood Partial Pressure CO2 51H, Arterial Blood Partial Pressure O2 65L, Arterial Blood HCO3 24, Arterial Blood Total CO2 25.8, Arterial Blood Oxygen Saturation 93L, Arterial Blood Base Excess -1.4, Johnathon Test YES- POS, Blood Gas Ventilator Setting YES, Blood Gas Inspired Oxygen 40% Microbiology 03/12/22 Blood Culture - Preliminary, Resulted No growth 03/12/22 Gram Stain - Final, Resulted 03/12/22 Sputum Culture - Preliminary, Resulted Usual upper respiratory davi A/P: Assessment: Acute resp failure requiring intubation/sedation - management per medical services/eICU Ac systolic CHF - echo on 03/12/22: LVEF 35-40%, mod diffuse hypokinesis of LV Minimal troponin elevation - Type 2 MA d/t hypoxia and transient hypotension CAD with stents x 2 - Family at the bedside reports he had stents done at [facility] in [place], [place] in Nov 2021 at which time he had an MA COPD per ED documentation - acute on chronic exacerbation Documented h/o HTN Renal insufficiency - undetermined length of time, likely chronic DM per ED documentation HLD per ED documentation Probable NATALIE - advise out pt w/u if this has not already been determined Morbid obesity - BMI 46.5 Plan: * Treat ac CHF with diuretics * iv enalaprilat and beta-mj if tolerated by bp (thus far BP has not allowed) * Continue ASA because of h/o CAD and add Plavix (family at the bedside reports he had stents placed in November 2021 in [place], [place]; he had presented with an MA at that time) * Try to obtain cardiac records * Consider spironolactone and SGLT2-inhib when extubated and able to take oral meds * Sleep studies when able to * Continue DVT prophylaxis * Monitor labs closely FREDDY ERICKSON Mar 13, 2022 10:37
[2022-03-13] MEDS ORDERED: CLOPIDOGREL 75 MG (PLAVIX) TABLET PO NR (11:00)
[2022-03-13] MEDS: NOREPINEPHRINE 16 MG in NS (IVPB) 234 ML IV SCH (11:41)
--- NOTE | 2022-03-13 11:59 | Progress Note - Hospitalist ---
Subjective HPI/CC On Admission Date Seen by Provider: Mar 13, 2022 Subjective/Events-last exam Pt remains on a vent. Sedated. RN reports no concerns. Focused Exam Lactate Level 03/12/22 08:25: Lactic Acid Level 0.86 Objective Exam Vital Signs Vital Signs Date Time Temp Pulse Resp B/P (MAP) Pulse Ox O2 Delivery O2 Flow Rate FiO2 03/14/22 13:00 69 03/14/22 12:06 100/49 03/14/22 12:00 24 92 Mechanical Ventilator 40.00 03/14/22 12:00 35.9 03/14/22 10:44 40 Capillary Refill : Less Than 3 Seconds General Appearance: Obese, Other (intuabted and sedated) Respiratory: Lungs Clear, Other (on vent) Cardiovascular: Regular Rate, Rhythm, No Murmur Genital/Rectal: Other (hicks) Extremity: Normal Capillary Refill, No Pedal Edema Neurologic/Psychiatric: Other (sedated, appears comfortable) Results/Procedures Lab Laboratory Tests 03/14/22 03:55 Patient resulted labs reviewed. Imaging: Reviewed Imaging Report Assessment/Plan Assessment and Plan Assess & Plan/Chief Complaint Acute hypercapnic and hypoxic respiratory failure COPD exacerbation with lower respiratory tract infection Sepsis rule out Intubated 03/12 TeleICU consulted for vent management Cefepime to continue Cultures pending Remains on low dose levophed NSTEMI CAD HTN HLD Likely Type II due to above Cardiology consulted, appreciate recs DMII Sliding Scale Insulin DVT ppx Lovenox Critical Care Ventilator Management Diagnosis/Problems Diagnosis/Problems (1) Acute respiratory failure Qualifiers: Respiratory failure complication: hypoxia and hypercapnia Qualified Codes: J96.01 - Acute respiratory failure with hypoxia; J96.02 - Acute respiratory failure with hypercapnia (2) CAD (coronary artery disease) Qualifiers: Coronary Disease-Associated Artery/Lesion type: unspecified vessel or lesion type [place] vs. transplanted heart: unspecified whether [place] or transplanted heart Associated angina: unspecified whether angina present Qualified Codes: I25.10 - Atherosclerotic heart disease of [place] coronary artery without angina pectoris (3) COPD (chronic obstructive pulmonary disease) Qualifiers: COPD type: COPD with acute lower respiratory infection Qualified Codes: J44.0 - Chronic obstructive pulmonary disease with (acute) lower respiratory infection (4) Essential (primary) hypertension Status: Chronic (5) HLD (hyperlipidemia) Status: Chronic Qualifiers: Hyperlipidemia type: unspecified Qualified Codes: E78.5 - Hyperlipidemia, unspecified (6) COPD with acute bronchitis Status: Acute JAIRO MURILLO MD Mar 13, 2022 11:59
[2022-03-13] MEDS: NS IV 1000 ML 1,000 ML IV SCH (13:21)
[2022-03-13 15:11] VITALS: BP 113/55
[2022-03-13] MEDS: ACETAMINOPHEN 325 MG TABLET PO PRN (16:58)
--- NOTE | 2022-03-13 17:28 | Progress Note - Cardiology ---
Cardiology SOAP Progress Note Subjective: on [facility] vent, sedated, unable to communicate Objective: I&O/Vital Signs 03/13/22 03/13/22 03/13/22 03/13/22 06:00 07:00 07:00 07:14 Pulse 73 74 71 70 Resp 22 24 22 B/P (MAP) Pulse Ox 93 93 90 O2 Delivery Mechanical Ventilator Mechanical Ventilator O2 Flow Rate 40.00 40.00 FiO2 40 03/13/22 03/13/22 03/13/22 03/13/22 07:30 08:00 08:03 08:08 Temp 37.2 Pulse 73 73 Resp 24 B/P (MAP) 109/56 Pulse Ox 93 93 O2 Delivery Mechanical Ventilator Mechanical Ventilator O2 Flow Rate 40.00 FiO2 40 03/13/22 03/13/22 03/13/22 03/13/22 08:15 08:31 09:00 09:15 Pulse 74 73 73 Resp 22 B/P (MAP) 110/56 117/57 Pulse Ox 94 O2 Delivery Mechanical Ventilator O2 Flow Rate 40.00 FiO2 40 03/13/22 03/13/22 03/13/22 03/13/22 09:15 09:15 10:00 10:24 Pulse 73 73 72 64 Resp 27 B/P (MAP) 117/57 117/57 119/57 Pulse Ox 94 O2 Delivery Mechanical Ventilator O2 Flow Rate 40.00 03/13/22 03/13/22 03/13/22 03/13/22 10:35 11:00 11:41 11:58 Pulse 72 73 72 Resp 22 16 B/P (MAP) 117/52 Pulse Ox 94 94 94 O2 Delivery Mechanical Ventilator Mechanical Ventilator O2 Flow Rate 40.00 FiO2 40 40 03/13/22 03/13/22 03/13/22 03/13/22 12:00 12:08 12:09 13:00 Temp 37.0 Pulse 71 74 Resp 15 B/P (MAP) Pulse Ox 93 O2 Delivery Mechanical Ventilator O2 Flow Rate 40.00 FiO2 40 03/13/22 03/13/22 03/13/22 03/13/22 13:00 13:13 13:13 13:13 Pulse 75 74 74 74 Resp 22 B/P (MAP) 117/54 117/54 117/54 Pulse Ox 95 O2 Delivery Mechanical Ventilator O2 Flow Rate 40.00 03/13/22 03/13/22 03/13/22 11/30/22 14:00 14:35 15:00 15:08 Pulse 73 72 71 71 Resp B/P (MAP) 106/51 107/52 Pulse Ox 95 95 O2 Delivery Mechanical Ventilator Mechanical Ventilator O2 Flow Rate 40.00 40.00 03/13/22 03/13/22 03/13/22 03/13/22 15:11 16:00 16:45 16:45 Pulse 71 73 Resp B/P (MAP) Pulse Ox 96 96 94 O2 Delivery Mechanical Ventilator Mechanical Ventilator O2 Flow Rate 40.00 FiO2 40 40 40 03/13/22 03/13/22 03/13/22 03/13/22 16:52 16:53 16:53 16:54 Temp 38.5 Pulse 74 74 74 B/P (MAP) 112/52 112/52 112/52 03/13/22 03/13/22 16:58 17:19 Temp 38.5 38.3 03/13/22 00:00 Intake Total 2690 ml Output Total 1225 ml Balance 1465 ml Constitutional: other (intubated and sedated) Respiratory: other (intubated; good air entry) Cardiovascular: regular rate-rhythm Gastrointestional: soft, round, audible bowel sounds Extremities: no lower extremity edema bilateral Neurologic/Psychiatric: other (unable to cooperate with neuro exam d/t sedation) Skin: No rash on exposed areas, No ulcerations on exposed areas Results/Procedures: Labs Laboratory Tests 03/12/22 21:05: Glucometer 149H 03/13/22 04:22: White Blood Count 5.5, Red Blood Count 3.92L, Hemoglobin 12.8L, Hematocrit 38L, Mean Corpuscular Volume 96, Mean Corpuscular Hemoglobin 33, Mean Corpuscular Hemoglobin Concent 34, Red Cell Distribution Width 15.0H, Platelet Count 163, M lyric Platelet Volume 10.2, Immature Granulocyte % (Auto) 1, Neutrophils (%) (Auto) 39L, Lymphocytes (%) (Auto) 48H, Monocytes (%) (Auto) 11, Eosinophils (%) (Auto) 1, Basophils (%) (Auto) 1, Neutrophils # (Auto) 2.1, Lymphocytes # (Auto) 2.6, Monocytes # (Auto) 0.6, Eosinophils # (Auto) 0.0, Basophils # (Auto) 0.0, Immature Granulocyte # (Auto) 0.0, Blood Gas Puncture Site L RAD, Blood Gas Patient Temperature 37.3, Arterial Blood pH 7.31*L, Arterial Blood Partial Pressure CO2 52H, Arterial Blood Partial Pressure O2 55L, Arterial Blood HCO3 25, Arterial Blood Total CO2 26.8, Arterial Blood Oxygen Saturation 90L, Arterial Blood Base Excess -0.2, Johnathon Test YES-POS, Blood Gas Ventilator Setting YES, Blood Gas Inspired Oxygen 40%, Sodium Level 137, Potassium Level 4.3, Chloride Level 104, Carbon Dioxide Level 21, Anion Gap 12, Blood Urea Nitrogen 15, Creatinine 1.43H, Estimat Glomerular Filtration Rate 56, BUN/Creatinine Ratio 10, Glucose Level 158H, Calcium Level 7.4L, Phosphorus Level 3.9, Magnesium Level 1.7 03/13/22 12:03: Glucometer 147H Microbiology 03/12/22 Blood Culture - Preliminary, Resulted No growth 03/12/22 Gram Stain - Final, Resulted 03/12/22 Sputum Culture - Preliminary, Resulted Usual upper respiratory davi Laboratory Tests 03/12/22 06:00 03/13/22 04:22 A/P: Assessment: Acute resp failure requiring intubation/sedation - management per medical services/eICU Ac systolic CHF - echo on 03/12/22: LVEF 35-40%, mod diffuse hypokinesis of LV Minimal troponin elevation - Type 2 [place] d/t hypoxia and transient hypotension CAD with stents x 2 - Family at the bedside reports he had stents done at [facility] in [place], [place] in Nov 2021 at which time he had an IL COPD per ED documentation - acute on chronic exacerbation Documented h/o HTN Renal insufficiency - undetermined length of time, likely chronic DM per ED documentation HLD per ED documentation Probable NATALIE - advise out pt w/u if this has not already been determined Morbid obesity - BMI 46.5 Plan: * Treat ac CHF with diuretics * iv enalaprilat and beta-mj if tolerated by bp (thus far BP has not allowed) * Continue ASA because of h/o CAD and add Plavix (family at the bedside reports he had stents placed in November 2021 in [place], [place]; he had presented with an IL at that time) * Try to obtain cardiac records * Consider spironolactone and SGLT2-inhib when extubated and able to take oral meds * Sleep studies when able to * Continue DVT prophylaxis * Monitor labs closely NERISSA GARCIA MD FACP [facility] Mar 13, 2022 17:28
[2022-03-13 19:14] VITALS: BP 117/55
[2022-03-13 22:36] VITALS: BP 124/63
[2022-03-14] MEDS: meTOprolol 5 MG/5 ML (LOPRESSOR) VIAL IV SCH ×4 (00:07→18:04)
[2022-03-14] MEDS: PROPOFOL DRIP (ICU) 100 ML IV SCH ×8 (00:11→23:14)
[2022-03-14] MEDS: ENOXAPARIN 40 MG/0.4 ML (LOVENOX) SYR SQ SCH ×3 (00:11→23:13)
[2022-03-14] MEDS: fentaNYL DRIP PRE-MIX 250 ML IV SCH ×3 (01:12→18:13)
[2022-03-14] MEDS: DexMEDEtomidine 250 ML DRIP 250 ML IV SCH ×6 (02:01→23:41)
[2022-03-14] MEDS: CEFEPIME INJECTION 1,000 MG in NS (IVPB) 50 ML IV SCH ×4 (02:02→20:35)
[2022-03-14 02:25] VITALS: BP 123/62
[2022-03-14] MEDS: RT-ALBUTEROL/IPRATROPIUM 3 ML (DUONEB) VIAL INH SCH ×6 (02:25→22:11)
[2022-03-14 04:07] LABS: ABG BASE EXCESS -1.4 MMOL/L (-2.5-2.5); ABG OXYGEN SATURATION 93 % (94-100); ABG PCO2 51 MMHG (35-45); ABG PO2 65 MMHG (79-93); ABG TCO2 25.8 MMOL/L (21.0-31.0)
[2022-03-14 04:07] LABS: BASOPHILS % (AUTO) 1 % (0-10); EOSINOPHILS # (AUTO) 0.1 10^3/uL (0.0-0.3); EOSINOPHILS % (AUTO) 2 % (0-10); HEMATOCRIT 38 % (40-54); HEMOGLOBIN 12.9 g/dL (13.3-17.7); LYMPHOCYTES # (AUTO) 2.6 10^3/uL (1.0-4.0); LYMPHOCYTES % (AUTO) 47 % (12-44); MEAN CORPUSCULAR HEMOGLOBIN 33 pg (25-34); MEAN CORPUSCULAR HGB CONC 34 g/dL (32-36); MEAN CORPUSCULAR VOLUME 97 fL (80-99); MONOCYTES # (AUTO) 0.5 10^3/uL (0.0-1.0); MONOCYTES % (AUTO) 9 % (0-12); NEUTROPHILS # (AUTO) 2.3 10^3/uL (1.8-7.8); NEUTROPHILS % (AUTO) 41 % (42-75); PLATELET COUNT 153 10^3/uL (130-400); WHITE BLOOD COUNT 5.5 10^3/uL (4.3-11.0)
[2022-03-14 04:08] LABS: ALLENS TEST YES-POS
[2022-03-14 04:09] LABS: INSPIRED O2 40%; PATIENT TEMP 37.1; VENTILATOR YES
[2022-03-14 04:10] LABS: ABG PH 7.29 (7.37-7.43)
[2022-03-14 04:25] LABS: CALCIUM 7.4 MG/DL (8.5-10.1)
[2022-03-14] MEDS: NS IV 1000 ML 1,000 ML IV SCH ×2 (04:27→19:56)
[2022-03-14 04:29] LABS: CREATININE SERUM 1.12 MG/DL (0.60-1.30); PHOSPHORUS 3.5 MG/DL (2.3-4.7)
[2022-03-14] MEDS: NOREPINEPHRINE 16 MG in NS (IVPB) 234 ML IV SCH ×2 (04:36→18:04)
[2022-03-14] MEDS: MAGNESIUM 1 GM/100 ML IVPB 100 ML IV SCH (04:44)
[2022-03-14] MEDS: POTASSIUM CL 10MEQ/50ML IVPB 50 ML IV SCH (04:44)
[2022-03-14] MEDS: KCL 20 MEQ TAB (K-DUR) PO SCH (04:45)
[2022-03-14 07:03] VITALS: BP 190/138
[2022-03-14] MEDS: FAMOTIDINE 20 MG (PEPCID) TABLET PO SCH ×2 (08:06→20:36)
[2022-03-14] MEDS: ASPIRIN E.C. 81 MG (ECOTRIN) TAB PO SCH (08:06)
[2022-03-14] MEDS: ENALAPRILAT 2.5 MG/2 ML (VASOTEC) VIAL IV SCH ×2 (08:06→21:08)
[2022-03-14] MEDS: FUROSEMIDE 40 MG/4 ML INJ (LASIX) IVP SCH (08:06)
[2022-03-14] MEDS: CLOPIDOGREL 75 MG (PLAVIX) TABLET PO SCH (08:06)
--- NOTE | 2022-03-14 09:14 | Progress Note - Hospitalist ---
Subjective HPI/CC On Admission Date Seen by Provider: Mar 14, 2022 Subjective/Events-last exam Pt remains intubated and sedated. No concerns per RN. She states eiCU Considering SBT today. If not able to wean will look towards tube feeds. Focused Exam Lactate Level 03/12/22 08:25: Lactic Acid Level 0.86 Objective Exam Vital Signs Vital Signs Date Time Temp Pulse Resp B/P (MAP) Pulse Ox O2 Delivery O2 Flow Rate FiO2 03/14/22 13:00 69 03/14/22 12:06 100/49 03/14/22 12:00 24 92 Mechanical Ventilator 40.00 03/14/22 12:00 35.9 03/14/22 10:44 40 Capillary Refill : Less Than 3 Seconds General Appearance: No Apparent Distress, Chronically ill, Obese Respiratory: No Accessory Muscle Use, Decreased Breath Sounds, Other (on vent) Cardiovascular: Regular Rate, Rhythm, No Murmur Gastrointestinal: Normal Bowel Sounds, Non Tender, Soft Extremity: Normal Capillary Refill, Pedal Edema Neurologic/Psychiatric: Other (sedated, appears comfortable) Results/Procedures Lab Laboratory Tests 03/14/22 03:55 Patient resulted labs reviewed. Imaging: Reviewed Imaging Report Assessment/Plan Assessment and Plan Assess & Plan/Chief Complaint Acute hypercapnic and hypoxic respiratory failure COPD exacerbation with lower respiratory tract infection Sepsis rule out Intubated 03/12 TeleICU consulted for vent management Cefepime to continue Cultures, sputum with MURF Remains on low dose levophed- trying to wean NSTEMI CAD HTN HLD Likely Type II due to above Cardiology consulted, appreciate recs DMII Sliding Scale Insulin DVT ppx Lovenox Critical Care Ventilator Management Diagnosis/Problems Diagnosis/Problems (1) Acute respiratory failure Qualifiers: Respiratory failure complication: hypoxia and hypercapnia Qualified Codes: J96.01 - Acute respiratory failure with hypoxia; J96.02 - Acute respiratory failure with hypercapnia (2) CAD (coronary artery disease) Qualifiers: Coronary Disease-Associated Artery/Lesion type: unspecified vessel or lesion type [place] vs. transplanted heart: unspecified whether [place] or transplanted heart Associated angina: unspecified whether angina present Qualified Codes: I25.10 - Atherosclerotic heart disease of [place] coronary artery without angina pectoris (3) COPD (chronic obstructive pulmonary disease) Qualifiers: COPD type: COPD with acute lower respiratory infection Qualified Codes: J44.0 - Chronic obstructive pulmonary disease with (acute) lower respiratory infection (4) Essential (primary) hypertension Status: Chronic (5) HLD (hyperlipidemia) Status: Chronic Qualifiers: Hyperlipidemia type: unspecified Qualified Codes: E78.5 - Hyperlipidemia, unspecified (6) COPD with acute bronchitis Status: Acute JAIRO MURILLO MD Mar 14, 2022 09:14
--- NOTE | 2022-03-14 09:58 | Tele-ICU Progress Note ---
Subjective Date Seen by a Provider: Mar 14, 2022 Subjective/Events-last exam This virtual visit was conducted using real time audio/video. Thank you for asking us to see this patient for respiratory insufficiency due to AECOPD/CHF, sepsis. Intub 03:15 03/12/2022. Possible NATALIE/OHS. S/P PICC 03/13. PMH: COPD, htn, DM2, EF 35-40%, CAD/stents, HL, CRI. PE: VSS. Sedated on vent. O2 sat 97+% on AC 22/500/40%/+5. HEENT: No obvious masses, adenopathy or JVD. Chest: Coarse on auscultation. CV: RRR S1 S2 No murmur or added sounds. Abd: Non-tender. Bowel sounds Y. : Unremarkable. Jenkins Y. SAP PP CONSULTANT/psychiatric: Grossly intact. No obvious focal findings. Extremities: 1+ edema. Capillary refill < 3 seconds. Skin: unremarkable. Results: Elevated BG 140. Decreased Hb 12.9. B.31/52/55 on 40%/+5. CXR: B congestion, hyperinflation.. Available chart/ vitals / labs / images reviewed. Video assessment done using teleICU camera, rest of exam as per RN. A/P: Respiratory insufficiency: Continue present management with vent, Duon., Prec., Prop., fent. No SBT w hypoxia, wheezes, agit. Incr RR to 24. Monitor for increasing oxygenation needs. Critical Care: critically ill patient. Cont. Levo., Lasix, Pepcid, ASA, ABX, Bertrand. Discussed with EMMANUELLE Smith. Asked RN to reach out to eICU if any questions or concerns later. Time spent with patient/coordination of care with other health professionals (mins): 26 Sepsis Event Evaluation Height, Weight, BMI Height: '" Weight: lbs. oz. kg; 47.61 BMI Method: Focused Exam Lactate Level 03/12/22 08:25: Lactic Acid Level 0.86 Exam Exam Patient acknowledged, consented, and participated in this virtual visit which was conducted using real time audio/video Vital Signs Date Time Temp Pulse Resp B/P (MAP) Pulse Ox O2 Delivery O2 Flow Rate FiO2 03/14/22 09:38 66 115/56 03/14/22 09:38 66 114/56 03/14/22 09:00 67 22 93 Mechanical Ventilator 40.00 03/14/22 08:28 68 122/59 03/14/22 08:15 93 Mechanical Ventilator 40 03/14/22 08:10 40 03/14/22 08:05 68 113/56 03/14/22 08:00 35.1 03/14/22 08:00 69 8 93 Mechanical Ventilator 40.00 03/14/22 07:03 63 22 95 40 03/14/22 07:00 63 22 94 Mechanical Ventilator 40.00 03/14/22 07:00 63 03/14/22 06:11 62 123/62 03/14/22 06:10 62 123/62 03/14/22 06:00 62 22 94 Mechanical Ventilator 40.00 03/14/22 05:26 64 123/62 03/14/22 05:19 64 123/62 03/14/22 05:00 62 22 93 Mechanical Ventilator 40.00 03/14/22 04:36 64 123/62 03/14/22 04:36 64 123/62 03/14/22 04:00 61 22 96 Mechanical Ventilator 40.00 03/14/22 03:56 95 Mechanical Ventilator 40 03/14/22 03:55 40 03/14/22 03:55 64 123/62 03/14/22 03:46 35.1 03/14/22 03:00 63 22 96 Mechanical Ventilator 40.00 03/14/22 02:25 64 22 96 40 03/14/22 02:04 68 124/63 03/14/22 02:01 68 124/63 03/14/22 02:00 64 22 96 Mechanical Ventilator 40.00 03/14/22 01:12 68 124/63 03/14/22 01:00 66 03/14/22 01:00 66 22 94 Mechanical Ventilator 40.00 03/14/22 00:23 36.8 22 Mechanical Ventilator 40.00 03/14/22 00:22 94 Mechanical Ventilator 40 03/14/22 00:22 40 03/14/22 00:11 68 124/63 03/14/22 00:00 69 95 Mechanical Ventilator 40.00 03/13/22 23:00 70 95 Mechanical Ventilator 40.00 03/13/22 22:36 68 22 95 40 03/13/22 22:25 68 124/63 03/13/22 22:08 71 117/55 03/13/22 22:00 70 22 95 Mechanical Ventilator 40.00 03/13/22 21:00 75 23 94 Mechanical Ventilator 40.00 03/13/22 20:55 71 117/55 03/13/22 20:12 71 117/55 03/13/22 20:00 77 23 93 Mechanical Ventilator 40.00 03/13/22 20:00 40 03/13/22 20:00 93 Mechanical Ventilator 40 03/13/22 19:35 36.6 03/13/22 19:21 71 117/55 03/13/22 19:14 71 22 94 40 03/13/22 19:00 72 03/13/22 19:00 37.4 Mechanical Ventilator 40.00 03/13/22 19:00 72 22 94 Mechanical Ventilator 40.00 03/13/22 18:26 72 113/54 03/13/22 18:00 72 22 94 Mechanical Ventilator 40.00 03/13/22 17:19 38.3 03/13/22 17:00 75 22 94 Mechanical Ventilator 40.00 03/13/22 16:58 38.5 03/13/22 16:54 74 112/52 03/13/22 16:53 74 112/52 03/13/22 16:53 74 112/52 03/13/22 16:52 38.5 03/13/22 16:45 40 03/13/22 16:45 94 Mechanical Ventilator 40 03/13/22 16:00 73 22 96 Mechanical Ventilator 40.00 03/13/22 15:11 71 22 96 40 03/13/22 15:08 71 107/52 03/13/22 15:00 71 22 95 Mechanical Ventilator 40.00 03/13/22 14:35 72 106/51 03/13/22 14:00 73 22 95 Mechanical Ventilator 40.00 03/13/22 13:13 74 117/54 03/13/22 13:13 74 117/54 03/13/22 13:13 74 117/54 03/13/22 13:00 75 22 95 Mechanical Ventilator 40.00 03/13/22 13:00 74 03/13/22 12:09 40 03/13/22 12:08 37.0 03/13/22 12:00 71 15 93 Mechanical Ventilator 40.00 03/13/22 11:58 94 Mechanical Ventilator 40 03/13/22 11:41 72 117/52 03/13/22 11:00 73 16 94 Mechanical Ventilator 40.00 03/13/22 10:35 72 22 94 40 03/13/22 10:24 64 119/57 03/13/22 10:00 72 27 94 Mechanical Ventilator 40.00 I & O 03/14/22 07:00 Intake Total 4835 ml Output Total 2875 ml Balance 1960 ml Height & Weight Height: '" Weight: lbs. oz. kg; 47.61 BMI Method: General Appearance: Obese, Other (intuabted and sedated) HEENT: Moist Mucous Membranes; No Scleral Icterus (L), No Scleral Icterus (R) Neck: Normal Inspection, Supple Respiratory: Lungs Clear, Other (on vent) Cardiovascular: Regular Rate, Rhythm, No Murmur Capillary Refill: Less Than 3 Seconds Gastrointestinal: normal bowel sounds, non tender, soft Extremity: Normal Capillary Refill, No Pedal Edema Neurologic/Psychiatric: Other (sedated, appears comfortable) Results Lab Laboratory Tests 03/13/22 04:22 03/14/22 03:55 Assessment/Plan Assessment/Plan See free text. JAKUB WEISS MD Mar 14, 2022 09:58
[2022-03-14 10:44] VITALS: BP 97/48
[2022-03-14 14:48] VITALS: BP 102/50
--- NOTE | 2022-03-14 17:11 | Progress Note - Cardiology ---
Cardiology SOAP Progress Note Subjective: On [facility] vent, sedated, unable to communicate Objective: I&O/Vital Signs 03/14/22 03/14/22 03/14/22 03/14/22 05:19 05:26 06:00 06:10 Pulse 64 64 62 62 Resp 22 B/P (MAP) 123/62 123/62 123/62 Pulse Ox 94 O2 Delivery Mechanical Ventilator O2 Flow Rate 40.00 03/14/22 03/14/22 03/14/22 03/14/22 06:11 07:00 07:00 07:03 Pulse 62 63 63 63 Resp B/P (MAP) 123/62 Pulse Ox 94 95 O2 Delivery Mechanical Ventilator O2 Flow Rate 40.00 FiO2 40 03/14/22 03/14/22 03/14/22 03/14/22 08:00 08:00 08:05 08:10 Temp 35.1 Pulse 69 68 Resp 8 B/P (MAP) 113/56 Pulse Ox 93 O2 Delivery Mechanical Ventilator O2 Flow Rate 40.00 FiO2 40 03/14/22 03/14/22 03/14/22 03/14/22 08:15 08:28 09:00 09:38 Pulse 68 67 66 Resp B/P (MAP) 122/59 114/56 Pulse Ox 93 93 O2 Delivery Mechanical Ventilator Mechanical Ventilator O2 Flow Rate 40.00 FiO2 40 03/14/22 03/14/22 03/14/22 03/14/22 09:38 10:00 10:44 11:00 Pulse 66 65 65 68 Resp 24 B/P (MAP) 115/56 Pulse Ox 94 94 93 O2 Delivery Mechanical Ventilator Mechanical Ventilator O2 Flow Rate 40.00 40.00 FiO2 40 03/14/22 03/14/22 03/14/22 03/14/22 11:05 11:06 12:00 12:00 Temp 35.9 Pulse 68 69 71 Resp 24 B/P (MAP) 103/50 104/50 Pulse Ox 92 O2 Delivery Mechanical Ventilator O2 Flow Rate 40.00 03/14/22 03/14/22 03/14/22 03/14/22 12:02 12:06 12:22 12:22 Pulse 71 B/P (MAP) 100/49 100/49 Pulse Ox 93 O2 Delivery Mechanical Ventilator FiO2 40 40 03/14/22 03/14/22 03/14/22 03/14/22 13:00 13:00 14:00 14:36 Pulse 69 69 68 Resp 24 24 B/P (MAP) 109/52 Pulse Ox 94 94 O2 Delivery Mechanical Ventilator Mechanical Ventilator O2 Flow Rate 40.00 40.00 03/14/22 03/14/22 03/14/22 03/14/22 14:36 14:36 14:48 15:00 Pulse 68 73 Resp 24 24 B/P (MAP) 109/52 109/52 Pulse Ox 94 93 O2 Delivery Mechanical Ventilator O2 Flow Rate 40.00 FiO2 40 03/14/22 03/14/22 03/14/22 03/14/22 15:10 15:27 15:58 16:00 Temp 36.0 Pulse 72 73 Resp 24 B/P (MAP) 129/54 123/57 Pulse Ox 94 O2 Delivery Mechanical Ventilator O2 Flow Rate 40.00 03/14/22 00:00 Intake Total 1950 ml Output Total 1700 ml Balance 250 ml Constitutional: other (intubated and sedated) Respiratory: other (intubated; good air entry) Cardiovascular: regular rate-rhythm Gastrointestional: soft, round, audible bowel sounds Extremities: no lower extremity edema bilateral Neurologic/Psychiatric: other (unable to cooperate with neuro exam d/t sedation) Skin: No rash on exposed areas, No ulcerations on exposed areas Results/Procedures: Labs Laboratory Tests 03/13/22 18:42: Glucometer 114H 03/14/22 00:29: Glucometer 134H 03/14/22 03:55: White Blood Count 5.5, Red Blood Count 3.96L, Hemoglobin 12.9L, Hematocrit 38L, Mean Corpuscular Volume 97, Mean Corpuscular Hemoglobin 33, Mean Corpuscular Hemoglobin Concent 34, Red Cell Distribution Width 15.2H, Platelet Count 153, Mean Platelet Volume 10.0, Immature Granulocyte % (Auto) 1, Neutrophils (%) (Auto) 41L, Lymphocytes (%) (Auto) 47H, Monocytes (%) (Auto) 9, Eosinophils (%) (Auto) 2, Basophils (%) (Auto) 1, Neutrophils # (Auto) 2.3, Lymphocytes # (Auto) 2.6, Monocytes # (Auto) 0.5, Eosinophils # (Auto) 0.1, Basophils # (Auto) 0.0, Immature Granulocyte # (Auto) 0.0, Sodium Level 136, Potassium Level 4.0, Chloride Level 107, Carbon Dioxide Level 19L, Anion Gap 10, Blood Urea Nitrogen 15, Creatinine 1.12, Estimat Glomerular Filtration Rate 75, BUN/Creatinine Ratio 13, Glucose Level 140H, Calcium Level 7.4L, Phosphorus Level 3.5, Magnesium Level 2.0, Triglycerides Level 74 03/14/22 04:01: Blood Gas Puncture Site LRAD, Blood Gas Patient Temperature 37.1, Arterial Blood pH 7.29*L, Arterial Blood Partial Pressure CO2 51H, Arterial Blood Partial Pressure O2 65L, Arterial Blood HCO3 24, Arterial Blood Total CO2 25.8, Arterial Blood Oxygen Saturation 93L, Arterial Blood Base Excess -1.4, Johnathon Test YES- POS, Blood Gas Ventilator Setting YES, Blood Gas Inspired Oxygen 40% 03/14/22 11:54: Glucometer 134H Microbiology 03/13/22 MRSA Screen - Final, Complete MRSA not isolated 03/12/22 Blood Culture - Preliminary, Resulted No growth Laboratory Tests 03/13/22 04:22 03/14/22 03:55 A/P: Assessment: Acute resp failure requiring intubation/sedation - management per medical services/eICU Ac systolic CHF - echo on 03/12/22: LVEF 35-40%, mod diffuse hypokinesis of LV Minimal troponin elevation - Type 2 WA d/t hypoxia and transient hypotension CAD with stents x 2 - Family at the bedside reports he had stents done at [facility] in [place], [place] in Nov 2021 at which time he had an WA COPD per ED documentation - acute on chronic exacerbation Documented h/o HTN Renal insufficiency - undetermined length of time, likely chronic DM per ED documentation HLD per ED documentation Probable NATALIE - advise out pt w/u if this has not already been determined Morbid obesity - BMI 46.5 Plan: * Treat ac CHF with diuretics * iv enalaprilat and beta-mj if tolerated by bp (thus far BP has not allowed) * Continue ASA because of h/o CAD and add Plavix (family at the bedside reports he had stents placed in November 2021 in [place], [place]; he had presented with an WA at that time) * Try to obtain cardiac records * Consider spironolactone and SGLT2-inhib when extubated and able to take oral meds * Sleep studies when able to * Continue DVT prophylaxis * Monitor labs closely NERISSA GARCIA MD [facility] Mar 14, 2022 17:11
[2022-03-14 18:47] VITALS: BP 125/58
[2022-03-14 22:12] VITALS: BP 126/56
[2022-03-15] MEDS: meTOprolol 5 MG/5 ML (LOPRESSOR) VIAL IV SCH ×4 (00:16→18:10)
[2022-03-15] MEDS: RT-ALBUTEROL/IPRATROPIUM 3 ML (DUONEB) VIAL INH SCH ×6 (01:44→22:44)
[2022-03-15 01:45] VITALS: BP 123/56
[2022-03-15] MEDS: PROPOFOL DRIP (ICU) 100 ML IV SCH ×6 (02:13→22:24)
[2022-03-15] MEDS: CEFEPIME INJECTION 1,000 MG in NS (IVPB) 50 ML IV SCH ×4 (02:17→21:23)
[2022-03-15] MEDS: DexMEDEtomidine 250 ML DRIP 250 ML IV SCH ×6 (03:37→22:24)
[2022-03-15 04:07] LABS: ABG BASE EXCESS -1.5 MMOL/L (-2.5-2.5); ABG OXYGEN SATURATION 91 % (94-100); ABG PCO2 48 MMHG (35-45); ABG PO2 59 MMHG (79-93); ABG TCO2 25.3 MMOL/L (21.0-31.0)
[2022-03-15 04:08] LABS: BASOPHILS % (AUTO) 1 % (0-10); EOSINOPHILS # (AUTO) 0.2 10^3/uL (0.0-0.3); EOSINOPHILS % (AUTO) 3 % (0-10); HEMATOCRIT 38 % (40-54); HEMOGLOBIN 12.6 g/dL (13.3-17.7); LYMPHOCYTES # (AUTO) 2.2 10^3/uL (1.0-4.0); LYMPHOCYTES % (AUTO) 41 % (12-44); MEAN CORPUSCULAR HEMOGLOBIN 32 pg (25-34); MEAN CORPUSCULAR HGB CONC 34 g/dL (32-36); MEAN CORPUSCULAR VOLUME 96 fL (80-99); MEAN PLATELET VOLUME 10.2 fL (9.0-12.2); MONOCYTES # (AUTO) 0.5 10^3/uL (0.0-1.0); MONOCYTES % (AUTO) 8 % (0-12); NEUTROPHILS # (AUTO) 2.5 10^3/uL (1.8-7.8); NEUTROPHILS % (AUTO) 47 % (42-75); PLATELET COUNT 177 10^3/uL (130-400); WHITE BLOOD COUNT 5.4 10^3/uL (4.3-11.0)
[2022-03-15] MEDS: fentaNYL DRIP PRE-MIX 250 ML IV SCH ×2 (04:08→14:16)
[2022-03-15 04:09] LABS: ABG PH 7.32 (7.37-7.43); ALLENS TEST YES-POS
[2022-03-15 04:10] LABS: INSPIRED O2 40%; PATIENT TEMP 36.8; VENTILATOR YES
[2022-03-15 04:30] LABS: CALCIUM 7.2 MG/DL (8.5-10.1); CREATININE SERUM 0.91 MG/DL (0.60-1.30); PHOSPHORUS 2.9 MG/DL (2.3-4.7); POTASSIUM 4.3 MMOL/L (3.6-5.0)
[2022-03-15] MEDS: MAGNESIUM 1 GM/100 ML IVPB 100 ML IV SCH (04:33)
[2022-03-15] MEDS: KCL 20 MEQ TAB (K-DUR) PO SCH (04:33)
[2022-03-15] MEDS: POTASSIUM CL 10MEQ/50ML IVPB 50 ML IV SCH (04:33)
--- NOTE | 2022-03-15 06:07 | Progress Note - Hospitalist ---
Subjective HPI/CC On Admission Date Seen by Provider: Mar 15, 2022 Subjective/Events-last exam Pt remains intubated and sedated. RN reports did well overnight. No complaints. Focused Exam Lactate Level 03/12/22 08:25: Lactic Acid Level 0.86 Objective Exam Vital Signs Vital Signs Date Time Temp Pulse Resp B/P (MAP) Pulse Ox O2 Delivery O2 Flow Rate FiO2 03/15/22 04:08 71 123/56 03/15/22 04:00 93 Mechanical Ventilator 40 03/15/22 01:45 24 03/14/22 23:00 40.00 03/14/22 20:00 36.2 Capillary Refill : Less Than 3 Seconds General Appearance: Chronically ill, Obese, Other (intubated ) Neck: Other (ETT) Respiratory: Lungs Clear, No Accessory Muscle Use Cardiovascular: Regular Rate, Rhythm, No Murmur Genital/Rectal: Other (hicks in place) Extremity: Pedal Edema Neurologic/Psychiatric: Other (sedated, appears comfortable) Results/Procedures Lab Laboratory Tests 03/15/22 04:00 Patient resulted labs reviewed. Imaging: Reviewed Imaging Report Assessment/Plan Assessment and Plan Assess & Plan/Chief Complaint Acute hypercapnic and hypoxic respiratory failure COPD exacerbation with lower respiratory tract infection Sepsis rule out Intubated 03/12 TeleICU consulted for vent management Cefepime Cultures, sputum with MURF Remains on low dose levophed- trying to wean Dietary consult for TF recs as day 4 NPO NSTEMI CAD HTN HLD Likely Type II due to above Cardiology consulted, appreciate recs ASA and Plavix BB and joshua-i when BP allows Echo with EF of 35% DMII Sliding Scale Insulin DVT ppx Lovenox Critical Care Ventilator Management Diagnosis/Problems Diagnosis/Problems (1) Acute respiratory failure Qualifiers: Respiratory failure complication: hypoxia and hypercapnia Qualified Codes: J96.01 - Acute respiratory failure with hypoxia; J96.02 - Acute respiratory failure with hypercapnia (2) CAD (coronary artery disease) Qualifiers: Coronary Disease-Associated Artery/Lesion type: unspecified vessel or lesion type [place] vs. transplanted heart: unspecified whether [place] or transplanted heart Associated angina: unspecified whether angina present Qualified Codes: I25.10 - Atherosclerotic heart disease of [place] coronary artery without angina pectoris (3) COPD (chronic obstructive pulmonary disease) Qualifiers: COPD type: COPD with acute lower respiratory infection Qualified Codes: J44.0 - Chronic obstructive pulmonary disease with (acute) lower respiratory infection (4) Essential (primary) hypertension Status: Chronic (5) HLD (hyperlipidemia) Status: Chronic Qualifiers: Hyperlipidemia type: unspecified Qualified Codes: E78.5 - Hyperlipidemia, unspecified (6) COPD with acute bronchitis Status: Acute JAIRO MURILLO MD Mar 15, 2022 06:07
[2022-03-15 06:46] VITALS: BP 121/52
--- NOTE | 2022-03-15 07:37 | Tele-ICU Progress Note ---
Subjective Date Seen by a Provider: Mar 15, 2022 Time Seen by a Provider: 07:34 Subjective/Events-last exam This virtual visit was conducted using real time audio/video. Remains on vent AC 14, Vt 500 FiO2 40%, ABG 7.32/48/59, last CXR 03/12 did not show infiltrate, will repeat Remains on fV cefepime, Levo @ 0.2, fentanyl @ 125, propofol @25, IV Precedex 1.5, Had sedation vacation but became very tachypneic, no SBT BC remain negative Does not need much suctioning Will need feed TF, will start [facility] Sepsis Event Evaluation Height, Weight, BMI Height: '" Weight: lbs. oz. kg; 47.61 BMI Method: Focused Exam Lactate Level 03/12/22 08:25: Lactic Acid Level 0.86 Exam Exam Patient acknowledged, consented, and participated in this virtual visit which was conducted using real time audio/video Vital Signs Date Time Temp Pulse Resp B/P (MAP) Pulse Ox O2 Delivery O2 Flow Rate FiO2 03/15/22 06:46 76 24 93 40 03/15/22 06:18 71 123/56 03/15/22 06:00 74 24 94 Mechanical Ventilator 40.00 03/15/22 05:00 72 24 94 Mechanical Ventilator 40.00 03/15/22 04:08 71 123/56 03/15/22 04:00 93 Mechanical Ventilator 40 03/15/22 04:00 40 03/15/22 04:00 74 24 94 Mechanical Ventilator 40.00 03/15/22 03:37 71 123/56 03/15/22 03:00 75 23 94 Mechanical Ventilator 40.00 03/15/22 02:13 71 123/56 03/15/22 02:00 74 24 94 Mechanical Ventilator 40.00 03/15/22 01:45 71 24 97 40 03/15/22 01:00 70 03/15/22 01:00 70 24 95 Mechanical Ventilator 40.00 03/15/22 00:00 71 24 95 Mechanical Ventilator 40.00 03/15/22 00:00 40 03/14/22 23:59 93 Mechanical Ventilator 40 03/14/22 23:41 71 126/56 03/14/22 23:14 71 126/56 03/14/22 23:00 71 24 95 Mechanical Ventilator 40.00 03/14/22 22:12 71 24 95 40 03/14/22 22:00 71 24 95 Mechanical Ventilator 40.00 03/14/22 21:00 72 25 95 Mechanical Ventilator 40.00 03/14/22 20:00 73 24 94 Mechanical Ventilator 40.00 03/14/22 20:00 93 Mechanical Ventilator 40 03/14/22 20:00 40 03/14/22 20:00 36.2 03/14/22 19:55 70 125/58 03/14/22 19:45 122/54 03/14/22 19:00 72 25 94 Mechanical Ventilator 40.00 03/14/22 19:00 72 03/14/22 18:47 70 24 95 40 03/14/22 18:13 105/49 03/14/22 18:13 105/49 03/14/22 18:13 105/49 03/14/22 18:00 71 24 94 Mechanical Ventilator 40.00 03/14/22 17:00 72 24 93 Mechanical Ventilator 40.00 03/14/22 16:25 93 Mechanical Ventilator 40 03/14/22 16:20 40 03/14/22 16:00 73 24 94 Mechanical Ventilator 40.00 03/14/22 15:58 36.0 03/14/22 15:27 123/57 03/14/22 15:10 72 129/54 03/14/22 15:00 73 24 93 Mechanical Ventilator 40.00 03/14/22 14:48 68 24 94 40 03/14/22 14:36 109/52 03/14/22 14:36 109/52 03/14/22 14:36 109/52 03/14/22 14:00 68 24 94 Mechanical Ventilator 40.00 03/14/22 13:00 69 24 94 Mechanical Ventilator 40.00 03/14/22 13:00 69 03/14/22 12:22 40 03/14/22 12:22 93 Mechanical Ventilator 40 03/14/22 12:06 100/49 03/14/22 12:02 71 100/49 03/14/22 12:00 71 24 92 Mechanical Ventilator 40.00 03/14/22 12:00 35.9 03/14/22 11:06 69 104/50 03/14/22 11:05 68 103/50 03/14/22 11:00 68 24 93 Mechanical Ventilator 40.00 03/14/22 10:44 65 24 94 40 03/14/22 10:00 65 22 94 Mechanical Ventilator 40.00 03/14/22 09:38 66 115/56 03/14/22 09:38 66 114/56 03/14/22 09:00 67 22 93 Mechanical Ventilator 40.00 03/14/22 08:28 68 122/59 03/14/22 08:15 93 Mechanical Ventilator 40 03/14/22 08:10 40 03/14/22 08:05 68 113/56 03/14/22 08:00 35.1 03/14/22 08:00 69 8 93 Mechanical Ventilator 40.00 I & O 03/15/22 07:00 Intake Total 775 ml Output Total 2575 ml Balance -1800 ml Height & Weight Height: '" Weight: lbs. oz. kg; 47.61 BMI Method: General Appearance: Chronically ill, Obese, Other (intubated ) HEENT: Moist Mucous Membranes; No Scleral Icterus (L), No Scleral Icterus (R) Neck: Other (ETT) Respiratory: Lungs Clear, No Accessory Muscle Use, Decreased Breath Sounds, Rhonci Cardiovascular: Regular Rate, Rhythm, No Murmur Capillary Refill: Less Than 3 Seconds Gastrointestinal: normal bowel sounds, non tender, soft Extremity: No Pedal Edema, Pedal Edema Neurologic/Psychiatric: Other (sedated, appears comfortable) Results Lab Laboratory Tests 03/14/22 03:55 03/15/22 04:00 Assessment/Plan Assessment/Plan AECOD, sepsis, morbid obesity will continue on vent for today, not ready for SBT Will order [facility] 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
[2022-03-15] MEDS: ENALAPRILAT 2.5 MG/2 ML (VASOTEC) VIAL IV SCH ×2 (08:05→21:54)
[2022-03-15] MEDS: CLOPIDOGREL 75 MG (PLAVIX) TABLET PO SCH (08:28)
[2022-03-15] MEDS: FAMOTIDINE 20 MG (PEPCID) TABLET PO SCH ×2 (08:28→21:23)
[2022-03-15] MEDS: FUROSEMIDE 40 MG/4 ML INJ (LASIX) IVP SCH (08:28)
[2022-03-15] MEDS: ASPIRIN E.C. 81 MG (ECOTRIN) TAB PO SCH (08:28)
[2022-03-15 10:20] VITALS: BP 114/50
[2022-03-15] MEDS: ENOXAPARIN 40 MG/0.4 ML (LOVENOX) SYR SQ SCH ×2 (10:47→23:19)
[2022-03-15] MEDS: NOREPINEPHRINE 16 MG in NS (IVPB) 234 ML IV SCH (11:00)
--- NOTE | 2022-03-15 11:04 | Progress Note - Cardiology ---
Cardiology SOAP Progress Note Subjective: Remains intubated and sedated Objective: I&O/Vital Signs 03/17/22 03/17/22 03/17/22 03/17/22 21:59 22:00 22:24 22:30 Temp 35.5 Pulse 63 63 64 B/P (MAP) 136/65 137/65 Pulse Ox 94 O2 Delivery Mechanical Ventilator O2 Flow Rate 40.00 03/17/22 03/17/22 03/18/22 03/18/22 22:39 23:00 00:00 00:00 Pulse 63 65 Resp 26 B/P (MAP) Pulse Ox 94 93 94 O2 Delivery Mechanical Ventilator Mechanical Ventilator O2 Flow Rate 40.00 FiO2 80 80 80 03/18/22 03/18/22 03/18/22 03/18/22 00:00 00:19 01:00 01:00 Pulse 65 65 64 64 Resp B/P (MAP) 146/68 Pulse Ox 94 94 O2 Delivery Mechanical Ventilator Mechanical Ventilator O2 Flow Rate 40.00 40.00 03/18/22 03/18/22 03/18/22 03/18/22 01:59 02:00 02:14 02:26 Pulse 64 64 64 64 Resp B/P (MAP) 135/72 Pulse Ox 95 95 O2 Delivery Mechanical Ventilator O2 Flow Rate 40.00 FiO2 80 03/18/22 03/18/22 03/18/22 03/18/22 02:32 03:00 04:00 04:00 Pulse 64 65 B/P (MAP) 131/65 Pulse Ox 95 95 O2 Delivery Mechanical Ventilator Mechanical Ventilator O2 Flow Rate 40.00 FiO2 80 80 03/18/22 03/18/22 03/18/22 03/18/22 04:00 04:19 05:00 05:46 Pulse 64 63 63 66 B/P (MAP) 157/72 Pulse Ox 95 95 O2 Delivery Mechanical Ventilator Mechanical Ventilator O2 Flow Rate 40.00 40.00 03/18/22 03/18/22 03/18/22 03/18/22 05:59 06:00 06:29 07:00 Pulse 64 65 65 63 B/P (MAP) 150/67 Automatic Cuff Pulse Ox 95 95 O2 Delivery Mechanical Ventilator Mechanical Ventilator O2 Flow Rate 40.00 40.00 12/5/22 12/5/22 12/5/22 12/5/22 07:18 07:35 08:00 08:00 Temp 35.7 Pulse 65 65 Resp 26 Pulse Ox 95 FiO2 80 80 03/18/22 03/18/22 03/18/22 08:00 08:54 09:00 Pulse 66 65 66 B/P (MAP) 135/56 Automatic Cuff Pulse Ox 94 93 O2 Delivery Mechanical Ventilator Mechanical Ventilator O2 Flow Rate 40.00 40.00 03/18/22 00:00 Intake Total 1780 ml Output Total 2100 ml Balance -320 ml Constitutional: other (intubated and sedated) Respiratory: other (intubated; good air entry) Cardiovascular: regular rate-rhythm Gastrointestional: soft, round, audible bowel sounds Extremities: no lower extremity edema bilateral Neurologic/Psychiatric: other (unable to cooperate with neuro exam d/t sedation) Skin: No rash on exposed areas, No ulcerations on exposed areas Results/Procedures: Labs Laboratory Tests 03/17/22 11:25: Glucometer 143H 03/17/22 18:40: Blood Gas Puncture Site ART LINE, Blood Gas Patient Temperature 36.2, Arterial Blood pH 7.40, Arterial Blood Partial Pressure CO2 43, Arterial Blood Partial Pressure O2 57L, Arterial Blood HCO3 26, Arterial Blood Total CO2 27.6, Arterial Blood Oxygen Saturation 92L, Arterial Blood Base Excess 1.7, Johnathon Test N/A, Blood Gas Ventilator Setting YES, Blood Gas Inspired Oxygen UNK 03/17/22 18:47: Glucometer 136H 03/18/22 02:35: Glucometer 139H 03/18/22 05:52: White Blood Count 6.3, Red Blood Count 3.44L, Hemoglobin 11.2L, Hematocrit 34L, Mean Corpuscular Volume 97, Mean Corpuscular Hemoglobin 33, Mean Corpuscular Hemoglobin Concent 33, Red Cell Distribution Width 15.7H, Platelet Count 247, Mean Platelet Volume 9.5, Immature Granulocyte % (Auto) 1, Neutrophils (%) (Aut o) 58, Lymphocytes (%) (Auto) 29, Monocytes (%) (Auto) 10, Eosinophils (%) (Auto) 3, Basophils (%) (Auto) 1, Neutrophils # (Auto) 3.6, Lymphocytes # (Auto) 1.8, Monocytes # (Auto) 0.6, Eosinophils # (Auto) 0.2, Basophils # (Auto) 0.0, Immature Granulocyte # (Auto) 0.1, Blood Gas Puncture Site LEFT RADIAL ARTLINE, Blood Gas Patient Temperature 35.4, Arterial Blood pH 7.39, Arterial Blood Partial Pressure CO2 44, Arterial Blood Partial Pressure O2 64L, Arterial Blood HCO3 27, Arterial Blood Total CO2 28.0, Arterial Blood Oxygen Saturation 95, Arterial Blood Base Excess 1.7, Johnathon Test YES-POS, Blood Gas Ventilator Setting YES, Blood Gas Inspired Oxygen NA, Sodium Level 141, Potassium Level 3.6, Chloride Level 113H, Carbon Dioxide Level 20L, Anion Gap 8, Blood Urea Nitrogen 14, Creatinine 0.71, Estimat Glomerular Filtration Rate 104, BUN/Creatinine Ratio 20, Glucose Level 129H, Calcium Level 7.2L, Phosphorus Level 2.0L, Magnesium Level 1.9 Microbiology 03/13/22 MRSA Screen - Final, Complete MRSA not isolated 03/12/22 Blood Culture - Final, Complete No growth A/P: Assessment: Acute resp failure requiring intubation/sedation - management per medical services/eICU Ac systolic CHF - echo on 03/12/22: LVEF 35-40%, mod diffuse hypokinesis of LV Minimal troponin elevation - Type 2 [place] d/t hypoxia and transient hypotension CAD with stents x 2 - Family at the bedside reports he had stents done at [facility] in [place], [place] in Nov 2021 at which time he had an MA COPD per ED documentation - acute on chronic exacerbation Documented h/o HTN Renal insufficiency - undetermined length of time, likely chronic DM per ED documentation HLD per ED documentation Probable NATALIE - advise out pt w/u if this has not already been determined Morbid obesity - BMI 46.5 Plan: * Treat ac CHF with diuretics * iv enalaprilat and beta-mj if tolerated by bp (thus far BP has not allowed) * Continue DAPT d/t CAD and family report of recent stent placement in [place] in November 2021 * Try to obtain cardiac records * Consider spironolactone and SGLT2-inhib when extubated and able to take oral meds * Sleep studies when able to * Continue DVT prophylaxis * Monitor labs closely FREDDY ERICKSON Mar 15, 2022 11:04
[2022-03-15] MEDS: NS IV 1000 ML 1,000 ML IV SCH (12:34)
[2022-03-15 14:37] VITALS: BP 113/51
--- NOTE | 2022-03-15 18:04 | Progress Note - Cardiology ---
Cardiology SOAP Progress Note Subjective: On [facility] vent Cannot communicate Objective: I&O/Vital Signs 03/15/22 03/15/22 03/15/22 03/15/22 06:18 06:46 07:00 07:00 Pulse 71 76 77 77 Resp 24 21 B/P (MAP) 123/56 Pulse Ox 93 93 O2 Delivery Mechanical Ventilator O2 Flow Rate 40.00 FiO2 40 03/15/22 03/15/22 03/15/22 03/15/22 08:00 08:00 08:00 08:00 Temp 36.3 Pulse 79 76 Resp 24 B/P (MAP) 111/49 Pulse Ox 93 O2 Delivery Mechanical Ventilator O2 Flow Rate 40.00 FiO2 40 03/15/22 03/15/22 03/15/22 03/15/22 08:00 08:30 08:40 09:00 Pulse 76 76 75 Resp 25 B/P (MAP) 111/49 121/55 Pulse Ox 94 O2 Delivery Mechanical Ventilator Mechanical Ventilator O2 Flow Rate 40.00 FiO2 40 03/15/22 03/15/22 03/15/22 03/15/22 10:00 10:20 10:20 10:27 Pulse 75 75 75 75 Resp 24 24 B/P (MAP) 114/51 114/49 Pulse Ox 93 93 O2 Delivery Mechanical Ventilator O2 Flow Rate 40.00 FiO2 40 03/15/22 03/15/22 03/15/22 03/15/22 10:46 11:00 12:00 12:00 Pulse 77 77 76 Resp 25 26 B/P (MAP) 116/50 Pulse Ox 93 92 O2 Delivery Mechanical Ventilator Mechanical Ventilator Mechanical Ventilator O2 Flow Rate 40.00 40.00 FiO2 40 03/15/22 03/15/22 03/15/22 03/15/22 12:00 12:00 12:34 13:00 Temp 36.0 Pulse 75 76 B/P (MAP) 118/52 FiO2 40 03/15/22 03/15/22 03/15/22 03/15/22 13:00 14:00 14:16 14:16 Pulse 75 74 74 74 Resp 25 24 B/P (MAP) 118/52 118/52 Pulse Ox 93 93 O2 Delivery Mechanical Ventilator Mechanical Ventilator O2 Flow Rate 40.00 40.00 03/15/22 03/15/22 03/15/22 03/15/22 14:17 14:37 15:00 16:00 Pulse 74 74 78 78 Resp 25 19 25 B/P (MAP) 118/52 Pulse Ox 93 93 94 O2 Delivery Mechanical Ventilator Mechanical Ventilator O2 Flow Rate 40.00 40.00 FiO2 40 03/15/22 03/15/22 16:00 17:00 Temp 36.5 Pulse 75 Resp 24 B/P (MAP) Pulse Ox 93 O2 Delivery Mechanical Ventilator O2 Flow Rate 40.00 03/15/22 00:00 Intake Total 250 ml Output Total 1100 ml Balance -850 ml Constitutional: other (intubated and sedated) Respiratory: other (intubated; good air entry) Cardiovascular: regular rate-rhythm Gastrointestional: soft, round, audible bowel sounds Extremities: no lower extremity edema bilateral Neurologic/Psychiatric: other (unable to cooperate with neuro exam d/t sedation) Skin: No rash on exposed areas, No ulcerations on exposed areas Results/Procedures: Labs Laboratory Tests 03/14/22 18:03: Glucometer 132H 03/15/22 04:00: White Blood Count 5.4, Red Blood Count 3.91L, Hemoglobin 12.6L, Hematocrit 38L, Mean Corpuscular Volume 96, Mean Corpuscular Hemoglobin 32, Mean Corpuscular Hemoglobin Concent 34, Red Cell Distribution Width 15.3H, Platelet Count 177, Mean Platelet Volume 10.2, Immature Granulocyte % (Auto) 0, Neutrophils (%) (Auto) 47, Lymphocytes (%) (Auto) 41, Monocytes (%) (Auto) 8, Eosinophils (%) (Auto) 3, Basophils (%) (Auto) 1, Neutrophils # (Auto) 2.5, Lymphocytes # (Auto) 2.2, Monocytes # (Auto) 0.5, Eosinophils # (Auto) 0.2, Basophils # (Auto) 0.0, Immature Granulocyte # (Auto) 0.0, Blood Gas Puncture Site ARTLINE, Blood Gas Patient Temperature 36.8, Arterial Blood pH 7.32*L, Arterial Blood Partial Pressure CO2 48H, Arterial Blood Partial Pressure O2 59L, Arterial Blood HCO3 24, Arterial Blood Total CO2 25.3, Arterial Blood Oxygen Saturation 91L, Arterial Blood Base Excess -1.5, Johnathon Test YES-POS, Blood Gas Ventilator Setting YES, Blood Gas Inspired Oxygen 40%, Sodium Level 141, Potassium Level 4.3, Chloride Level 109H, Carbon Dioxide Level 20L, Anion Gap 12, Blood Urea Nitrogen 12, Creatinine 0.91, Estimat Glomerular Filtration Rate 96, BUN/Creatinine Ratio 13, Glucose Level 144H, Calcium Level 7.2L, Phosphorus Level 2.9, Magnesium Level 2.0 Microbiology 03/13/22 MRSA Screen - Final, Complete MRSA not isolated 03/12/22 Blood Culture - Preliminary, Resulted No growth A/P: Assessment: Acute resp failure requiring intubation/sedation - management per Medical services/eICU Ac systolic CHF - echo on 03/12/22: LVEF 35-40%, mod diffuse hypokinesis of LV Minimal troponin elevation - Type 2 [place] d/t hypoxia and transient hypotension CAD with stents x 2 - Family at the bedside reports he had stents done at [facility] in [place], [place] in Nov 2021 at which time he had an [place] COPD per ED documentation - acute on chronic exacerbation Documented h/o HTN Renal insufficiency - undetermined length of time, likely chronic DM per ED documentation HLD per ED documentation Probable NATALIE - advise out pt w/u if this has not already been determined Morbid obesity - BMI 46.5 Plan: * Prognosis guarded due to continuing resp failure * Treat ac CHF with diuretics * iv enalaprilat and beta-mj if tolerated by bp (thus far BP has not allowed) * Continue DAPT d/t CAD and family report of recent stent placement in [place] in November 2021 * Consider spironolactone and SGLT2-inhib when extubated and able to take oral meds * Sleep studies when able to * Continue DVT prophylaxis * Monitor labs closely NERISSA GARCIA MD FACP [facility] Mar 15, 2022 18:04
[2022-03-15 19:13] VITALS: BP 129/56
[2022-03-15 22:44] VITALS: BP 130/58
[2022-03-16] MEDS: meTOprolol 5 MG/5 ML (LOPRESSOR) VIAL IV SCH ×4 (00:08→18:01)
[2022-03-16] MEDS: fentaNYL DRIP PRE-MIX 250 ML IV SCH ×3 (00:16→22:45)
[2022-03-16] MEDS: CEFEPIME INJECTION 1,000 MG in NS (IVPB) 50 ML IV SCH (02:14)
[2022-03-16] MEDS: NOREPINEPHRINE 16 MG in NS (IVPB) 234 ML IV SCH ×2 (02:15→18:35)
[2022-03-16] MEDS: DexMEDEtomidine 250 ML DRIP 250 ML IV SCH ×2 (02:17→20:10)
[2022-03-16] MEDS: PROPOFOL DRIP (ICU) 100 ML IV SCH ×7 (02:21→22:46)
[2022-03-16] MEDS: RT-ALBUTEROL/IPRATROPIUM 3 ML (DUONEB) VIAL INH SCH ×6 (02:23→22:13)
[2022-03-16 02:24] VITALS: BP 133/58
[2022-03-16] MEDS: NS IV 1000 ML 1,000 ML IV SCH ×2 (04:12→18:45)
[2022-03-16 04:14] LABS: ABG BASE EXCESS -1.2 MMOL/L (-2.5-2.5); ABG OXYGEN SATURATION 91 % (94-100); ABG PCO2 46 MMHG (35-45); ABG PO2 59 MMHG (79-93); ABG TCO2 25.2 MMOL/L (21.0-31.0)
[2022-03-16 04:17] LABS: BASOPHILS % (AUTO) 1 % (0-10); EOSINOPHILS # (AUTO) 0.1 10^3/uL (0.0-0.3); EOSINOPHILS % (AUTO) 2 % (0-10); HEMATOCRIT 37 % (40-54); HEMOGLOBIN 12.4 g/dL (13.3-17.7); LYMPHOCYTES # (AUTO) 2.3 10^3/uL (1.0-4.0); LYMPHOCYTES % (AUTO) 38 % (12-44); MEAN CORPUSCULAR HEMOGLOBIN 33 pg (25-34); MEAN CORPUSCULAR HGB CONC 34 g/dL (32-36); MEAN CORPUSCULAR VOLUME 97 fL (80-99); MEAN PLATELET VOLUME 9.8 fL (9.0-12.2); MONOCYTES # (AUTO) 0.6 10^3/uL (0.0-1.0); MONOCYTES % (AUTO) 9 % (0-12); NEUTROPHILS % (AUTO) 49 % (42-75); PLATELET COUNT 205 10^3/uL (130-400)
[2022-03-16 04:31] LABS: ABG PH 7.34 (7.37-7.43); ALLENS TEST YES-POS; PATIENT TEMP 98.6; VENTILATOR YES
[2022-03-16 04:40] LABS: POTASSIUM 4.1 MMOL/L (3.6-5.0)
[2022-03-16 04:42] LABS: CALCIUM 7.5 MG/DL (8.5-10.1)
[2022-03-16 04:46] LABS: CREATININE SERUM 0.92 MG/DL (0.60-1.30); PHOSPHORUS 2.5 MG/DL (2.3-4.7)
[2022-03-16 04:48] LABS: MAGNESIUM 2.2 MG/DL (1.6-2.4)
[2022-03-16] MEDS: POTASSIUM CL 10MEQ/50ML IVPB 50 ML IV SCH (04:57)
[2022-03-16] MEDS: KCL 20 MEQ TAB (K-DUR) PO SCH (04:57)
[2022-03-16] MEDS: MAGNESIUM 1 GM/100 ML IVPB 100 ML IV SCH (04:57)
[2022-03-16 07:49] VITALS: BP 114/50
--- NOTE | 2022-03-16 08:12 | Tele-ICU Progress Note ---
Subjective Date Seen by a Provider: Mar 16, 2022 Time Seen by a Provider: 08:06 Subjective/Events-last exam This virtual visit was conducted using real time audio/video. Remains on AC 24, Vt 500 FiO2 40% PEEP 6 Did ok last night, sedated, IV Propofol 25, IV Fentanyl 125, Precedex is now off, Sepsis Event Evaluation Height, Weight, BMI Height: '" Weight: lbs. oz. kg; 47.61 BMI Method: Exam Exam Patient acknowledged, consented, and participated in this virtual visit which was conducted using real time audio/video Vital Signs Date Time Temp Pulse Resp B/P (MAP) Pulse Ox O2 Delivery O2 Flow Rate FiO2 03/16/22 07:49 75 24 94 40 03/16/22 06:00 74 24 95 Mechanical Ventilator 40.00 03/16/22 05:00 75 24 95 Mechanical Ventilator 40.00 03/16/22 04:00 76 19 95 Mechanical Ventilator 40.00 03/16/22 04:00 Mechanical Ventilator 40 03/16/22 04:00 40 03/16/22 03:00 76 24 94 Mechanical Ventilator 40.00 03/16/22 02:24 72 24 95 40 03/16/22 02:21 73 130/58 03/16/22 02:17 73 130/58 03/16/22 02:15 73 130/58 03/16/22 02:00 73 24 95 Mechanical Ventilator 40.00 03/16/22 01:00 80 03/16/22 01:00 73 26 95 Mechanical Ventilator 40.00 03/16/22 00:49 36.3 03/16/22 00:16 73 130/58 03/16/22 00:00 74 24 95 Mechanical Ventilator 40.00 03/16/22 00:00 40 03/15/22 23:59 Mechanical Ventilator 40 03/15/22 23:00 73 24 95 Mechanical Ventilator 40.00 03/15/22 22:44 73 24 95 40 03/15/22 22:24 71 129/56 03/15/22 22:24 71 129/56 03/15/22 22:00 73 24 95 Mechanical Ventilator 40.00 03/15/22 21:00 74 23 95 Mechanical Ventilator 40.00 03/15/22 20:00 Mechanical Ventilator 40 03/15/22 20:00 75 26 94 Mechanical Ventilator 40.00 03/15/22 20:00 40 03/15/22 19:56 36.4 03/15/22 19:13 71 24 95 40 03/15/22 19:00 72 24 95 Mechanical Ventilator 40.00 03/15/22 19:00 73 03/15/22 18:31 73 126/54 03/15/22 18:30 72 126/54 03/15/22 18:00 73 24 94 Mechanical Ventilator 40.00 03/15/22 17:00 75 24 93 Mechanical Ventilator 40.00 03/15/22 16:00 40 03/15/22 16:00 36.5 03/15/22 16:00 78 25 94 Mechanical Ventilator 40.00 03/15/22 16:00 Mechanical Ventilator 40 03/15/22 15:00 78 19 93 Mechanical Ventilator 40.00 03/15/22 14:37 74 25 93 40 03/15/22 14:17 74 118/52 03/15/22 14:16 74 118/52 03/15/22 14:16 74 118/52 03/15/22 14:00 74 24 93 Mechanical Ventilator 40.00 03/15/22 13:00 75 25 93 Mechanical Ventilator 40.00 03/15/22 13:00 76 03/15/22 12:34 75 118/52 03/15/22 12:00 40 03/15/22 12:00 36.0 03/15/22 12:00 76 26 92 Mechanical Ventilator 40.00 03/15/22 12:00 Mechanical Ventilator 40 03/15/22 11:00 77 25 93 Mechanical Ventilator 40.00 03/15/22 10:46 77 116/50 03/15/22 10:27 75 114/49 03/15/22 10:20 75 114/51 03/15/22 10:20 75 24 93 40 03/15/22 10:00 75 24 93 Mechanical Ventilator 40.00 03/15/22 09:00 75 25 94 Mechanical Ventilator 40.00 03/15/22 08:40 76 121/55 03/15/22 08:30 Mechanical Ventilator 40 I & O 03/16/22 07:00 Intake Total 2360 ml Output Total 2685 ml Balance -325 ml Height & Weight Height: '" Weight: lbs. oz. kg; 47.61 BMI Method: General Appearance: Chronically ill, Obese, Other (intubated ) HEENT: Moist Mucous Membranes; No Scleral Icterus (L), No Scleral Icterus (R) Neck: Other (ETT) Respiratory: Lungs Clear, No Accessory Muscle Use, Decreased Breath Sounds, Rhonci Cardiovascular: Regular Rate, Rhythm, No Murmur Capillary Refill: Less Than 3 Seconds Gastrointestinal: normal bowel sounds, non tender, soft Extremity: No Pedal Edema, Pedal Edema (trace ankle edema) Neurologic/Psychiatric: Other (sedated, appears comfortable) Results Lab Laboratory Tests 03/15/22 04:00 03/16/22 04:05 Assessment/Plan Assessment/Plan Multiple problems make SBT difficult, obesity, sepisis, will try sedation holida y if possible and then try SBT Critical Care: Ventilator Management Time spent with patient (mins): 25 CLAUDIO PAYNE MD Mar 16, 2022 08:12
[2022-03-16] MEDS: CLOPIDOGREL 75 MG (PLAVIX) TABLET PO SCH (08:20)
[2022-03-16] MEDS: ASPIRIN E.C. 81 MG (ECOTRIN) TAB PO SCH (08:20)
[2022-03-16] MEDS: FUROSEMIDE 40 MG/4 ML INJ (LASIX) IVP SCH ×2 (08:20→18:01)
[2022-03-16] MEDS: FAMOTIDINE 20 MG (PEPCID) TABLET PO SCH ×2 (08:20→20:10)
[2022-03-16] MEDS: ENALAPRILAT 2.5 MG/2 ML (VASOTEC) VIAL IV SCH ×2 (09:00→21:12)
--- NOTE | 2022-03-16 09:04 | Progress Note - Hospitalist ---
Subjective HPI/CC On Admission Date Seen by Provider: Mar 16, 2022 Subjective/Events-last exam Pt remains intaubted and sedated. RN reports no concerns. I updated his Rona yesterday. Objective Exam Vital Signs Vital Signs Date Time Temp Pulse Resp B/P (MAP) Pulse Ox O2 Delivery O2 Flow Rate FiO2 03/16/22 08:00 74 25 94 Mechanical Ventilator 40.00 03/16/22 07:49 40 03/16/22 00:49 36.3 Capillary Refill : Less Than 3 Seconds General Appearance: Chronically ill, Obese Respiratory: Lungs Clear, Other (on vent) Cardiovascular: Regular Rate, Rhythm, No JVD, No Murmur Gastrointestinal: Normal Bowel Sounds, Non Tender, Soft Genital/Rectal: Other (hicks in place) Extremity: Pedal Edema Neurologic/Psychiatric: Other (sedated, appears comfortable) Results/Procedures Lab Laboratory Tests 03/16/22 04:05 Patient resulted labs reviewed. Imaging: Reviewed Imaging Report Assessment/Plan Assessment and Plan Assess & Plan/Chief Complaint Acute hypercapnic and hypoxic respiratory failure COPD exacerbation with lower respiratory tract infection Sepsis rule out Intubated 03/12 TeleICU consulted for vent management- planing sedation vacation today Cefepime Cultures, sputum with MURF otherwise NGTD Remains on low dose levophed- trying to wean Tube feeds NSTEMI CAD HTN HLD Likely Type II due to above Cardiology consulted, appreciate recs ASA and Plavix BB and joshua-i when BP allows Echo with EF of 35% DMII Sliding Scale Insulin DVT ppx Lovenox Critical Care Ventilator Management Diagnosis/Problems Diagnosis/Problems (1) Acute respiratory failure Qualifiers: Respiratory failure complication: hypoxia and hypercapnia Qualified Codes: J96.01 - Acute respiratory failure with hypoxia; J96.02 - Acute respiratory failure with hypercapnia (2) CAD (coronary artery disease) Qualifiers: Coronary Disease-Associated Artery/Lesion type: unspecified vessel or lesion type [place] vs. transplanted heart: unspecified whether [place] or transplanted heart Associated angina: unspecified whether angina present Qualified Codes: I25.10 - Atherosclerotic heart disease of [place] coronary artery without angina pectoris (3) COPD (chronic obstructive pulmonary disease) Qualifiers: COPD type: COPD with acute lower respiratory infection Qualified Codes: J44.0 - Chronic obstructive pulmonary disease with (acute) lower respiratory infection (4) Essential (primary) hypertension Status: Chronic (5) HLD (hyperlipidemia) Status: Chronic Qualifiers: Hyperlipidemia type: unspecified Qualified Codes: E78.5 - Hyperlipidemia, unspecified (6) COPD with acute bronchitis Status: Acute JAIRO MURILLO MD Mar 16, 2022 9:04 am
--- NOTE | 2022-03-16 09:37 | Diagnostic Imaging Report ---
INDICATION: On a ventilator. Right lower lobe pneumonia. Follow-up EXAMINATION: Chest 03/16/2022 COMPARISON: 03/12/2022. FINDINGS: 2 views of the chest There is mild infiltrate at the right lung base with atelectasis versus early infiltrate at the left base also noted. There are no effusions. There is no pneumothorax. Heart is prominent with mild pulmonary vascular congestion present. ET tube unremarkable. There is a 2nd tubular structure to the left of the ET tube uncertain etiology correlate clinically. There is a possible enteric tube seen within the upper mediastinum left of the ET tube however distally it is not visualized. Correlate clinically for proper functioning. A vague enteric tube is seen in the region of the stomach. IMPRESSION: 1. Scattered bibasilar infiltrates new since previous imaging with tubes as discussed above. Dictated by: Dictated on workstation # [id number]
[2022-03-16 10:21] VITALS: BP 158/76
--- NOTE | 2022-03-16 11:08 | Progress Note - Cardiology ---
Cardiology SOAP Progress Note Subjective: intubated and sedated unable to communicate Objective: I&O/Vital Signs 03/15/22 03/16/22 03/16/22 03/16/22 23:59 00:00 00:00 00:16 Pulse 74 73 Resp 24 B/P (MAP) 130/58 Pulse Ox 95 O2 Delivery Mechanical Ventilator Mechanical Ventilator O2 Flow Rate 40.00 FiO2 40 40 03/16/22 03/16/22 03/16/22 03/16/22 00:49 01:00 01:00 02:00 Temp 36.3 Pulse 73 80 73 Resp 26 24 B/P (MAP) Pulse Ox 95 95 O2 Delivery Mechanical Ventilator Mechanical Ventilator O2 Flow Rate 40.00 40.00 03/16/22 03/16/22 03/16/22 03/16/22 02:15 02:17 02:21 02:24 Pulse 73 73 73 72 Resp 24 B/P (MAP) 130/58 130/58 130/58 Pulse Ox 95 FiO2 40 03/16/22 03/16/22 03/16/22 03/16/22 03:00 04:00 04:00 04:00 Pulse 76 76 Resp 24 19 B/P (MAP) Pulse Ox 94 95 O2 Delivery Mechanical Ventilator Mechanical Ventilator Mechanical Ventilator O2 Flow Rate 40.00 40.00 FiO2 40 40 03/16/22 03/16/22 03/16/22 03/16/22 05:00 06:00 07:00 07:00 Pulse 75 74 74 74 Resp 24 24 25 B/P (MAP) Pulse Ox 95 95 94 O2 Delivery Mechanical Ventilator Mechanical Ventilator Mechanical Ventilator O2 Flow Rate 40.00 40.00 40.00 03/16/22 03/16/22 03/16/22 03/16/22 07:49 08:00 09:00 10:18 Pulse 75 74 77 87 Resp 24 25 25 B/P (MAP) 155/71 Pulse Ox 94 94 95 O2 Delivery Mechanical Ventilator Mechanical Ventilator O2 Flow Rate 40.00 40.00 FiO2 40 03/16/22 03/16/22 10:19 10:21 Pulse 87 85 Resp 27 B/P (MAP) 171/55 Pulse Ox 95 FiO2 40 03/15/22 23:59 Intake Total 2010 ml Output Total 825 ml Balance 1185 ml Constitutional: other (intubated and sedated) Respiratory: other (intubated; good air entry) Cardiovascular: regular rate-rhythm Gastrointestional: soft, round, audible bowel sounds Extremities: no lower extremity edema bilateral Neurologic/Psychiatric: other (unable to cooperate with neuro exam d/t sedation) Skin: No rash on exposed areas, No ulcerations on exposed areas Results/Procedures: Labs Laboratory Tests 03/15/22 18:10: Glucometer 131H 03/15/22 23:58: Glucometer 143H 03/16/22 04:05: White Blood Count 6.0, Red Blood Count 3.82L, Hemoglobin 12.4L, Hematocrit 37L, Mean Corpuscular Volume 97, Mean Corpuscular Hemoglobin 33, Mean Corpuscular Hemoglobin Concent 34, Red Cell Distribution Width 15.4H, Platelet Count 205, Mean Platelet Volume 9.8, Immature Granulocyte % (Auto) 0, Neutrophils (%) (Auto) 49, Lymphocytes (%) (Auto) 38, Monocytes (%) (Auto) 9, Eosinophils (%) (Auto) 2, Basophils (%) (Auto) 1, Neutrophils # (Auto) 3.0, Lymphocytes # (Auto) 2.3, Monocytes # (Auto) 0.6, Eosinophils # (Auto) 0.1, Basophils # (Auto) 0.0, Immature Granulocyte # (Auto) 0.0, Blood Gas Puncture Site RIGHT RADIAL, Blood Gas Patient Temperature 98.6, Arterial Blood pH 7.34*L, Arterial Blood Partial Pressure CO2 46H, Arterial Blood Partial Pressure O2 59L, Arterial Blood HCO3 24, Arterial Blood Total CO2 25.2, Arterial Blood Oxygen Saturation 91L, Arterial Blood Base Excess -1.2, Johnathon Test YES-POS, Blood Gas Ventilator Setting YES, Blood Gas Inspired Oxygen NA, Sodium Level 140, Potassium Level 4.1, Chloride Level 110H, Carbon Dioxide Level 19L, Anion Gap 11, Blood Urea Nitrogen 11, Creatinine 0.92, Estimat Glomerular Filtration Rate 95, BUN/C reatinine Ratio 12, Glucose Level 140H, Calcium Level 7.5L, Phosphorus Level 2.5, Magnesium Level 2.2 Microbiology 03/13/22 MRSA Screen - Final, Complete MRSA not isolated 03/12/22 Blood Culture - Preliminary, Resulted No growth Laboratory Tests 03/15/22 04:00 03/16/22 04:05 A/P: Assessment: Acute and prolonged resp failure requiring continuing mech vent - management per Medical services/eICU Ac systolic CHF - echo on 03/12/22: LVEF 35-40%, mod diffuse hypokinesis of LV Minimal troponin elevation - Type 2 NH d/t hypoxia and transient hypotension CAD with stents x 2 - Family at the bedside reports he had stents done at [facility] in [place], [place] in Nov 2021 at which time he had an [place] COPD per ED documentation - acute on chronic exacerbation Documented h/o HTN Renal insufficiency - undetermined length of time, likely chronic DM per ED documentation HLD per ED documentation Probable NATALIE - advise out pt w/u if this has not already been determined Morbid obesity - BMI 46.5 Plan: * Increase diuretics * iv enalaprilat and beta-mj if tolerated by bp (thus far BP has not allowed) * Continue DAPT d/t CAD and family report of recent stent placement in [place] in November 2021 * Consider spironolactone and SGLT2-inhib when extubated and able to take oral meds * Sleep studies when able to * Continue DVT prophylaxis * Monitor labs closely * Prognosis guarded due to continuing resp failure NERISSA GARCIA MD FACP [facility] Mar 16, 2022 11:07
[2022-03-16] MEDS: ENOXAPARIN 40 MG/0.4 ML (LOVENOX) SYR SQ SCH ×2 (11:27→23:22)
[2022-03-16 14:36] VITALS: BP 145/65
[2022-03-16 19:50] VITALS: BP 143/61
[2022-03-16 22:14] VITALS: BP 105/49
[2022-03-17] MEDS: meTOprolol 5 MG/5 ML (LOPRESSOR) VIAL IV SCH ×4 (00:11→19:10)
[2022-03-17] MEDS: PROPOFOL DRIP (ICU) 100 ML IV SCH ×7 (01:18→22:26)
[2022-03-17 02:45] VITALS: BP 113/50
[2022-03-17] MEDS: RT-ALBUTEROL/IPRATROPIUM 3 ML (DUONEB) VIAL INH SCH ×5 (02:45→22:39)
[2022-03-17 04:00] LABS: ABG BASE EXCESS -0.1 MMOL/L (-2.5-2.5); ABG OXYGEN SATURATION 94 % (94-100); ABG PCO2 46 MMHG (35-45); ABG PH 7.35 (7.37-7.43); ABG PO2 65 MMHG (79-93); ABG TCO2 26.3 MMOL/L (21.0-31.0); BASOPHILS % (AUTO) 1 % (0-10); EOSINOPHILS # (AUTO) 0.1 10^3/uL (0.0-0.3); EOSINOPHILS % (AUTO) 2 % (0-10); HEMATOCRIT 35 % (40-54); HEMOGLOBIN 11.6 g/dL (13.3-17.7); LYMPHOCYTES # (AUTO) 2.1 10^3/uL (1.0-4.0); LYMPHOCYTES % (AUTO) 36 % (12-44); MEAN CORPUSCULAR HEMOGLOBIN 32 pg (25-34); MEAN CORPUSCULAR HGB CONC 33 g/dL (32-36); MEAN CORPUSCULAR VOLUME 97 fL (80-99); MEAN PLATELET VOLUME 9.5 fL (9.0-12.2); MONOCYTES # (AUTO) 0.6 10^3/uL (0.0-1.0); MONOCYTES % (AUTO) 10 % (0-12); NEUTROPHILS % (AUTO) 52 % (42-75); PLATELET COUNT 227 10^3/uL (130-400); WHITE BLOOD COUNT 5.8 10^3/uL (4.3-11.0)
[2022-03-17 04:01] LABS: ALLENS TEST YES-POS; INSPIRED O2 50%; PATIENT TEMP 36.5; VENTILATOR YES
[2022-03-17 04:34] LABS: CREATININE SERUM 0.92 MG/DL (0.60-1.30); MAGNESIUM 2.3 MG/DL (1.6-2.4); PHOSPHORUS 2.7 MG/DL (2.3-4.7)
[2022-03-17] MEDS: KCL 20 MEQ TAB (K-DUR) PO SCH (05:40)
[2022-03-17] MEDS: MAGNESIUM 1 GM/100 ML IVPB 100 ML IV SCH (05:40)
[2022-03-17] MEDS: POTASSIUM CL 10MEQ/50ML IVPB 50 ML IV SCH (05:40)
[2022-03-17 06:30] VITALS: BP 124/54
[2022-03-17] MEDS: NS IV 1000 ML 1,000 ML IV SCH ×2 (08:06→23:35)
[2022-03-17] MEDS: DexMEDEtomidine 250 ML DRIP 250 ML IV SCH ×3 (08:07→21:59)
[2022-03-17] MEDS: FUROSEMIDE 40 MG/4 ML INJ (LASIX) IVP SCH ×2 (08:08→19:10)
[2022-03-17] MEDS: ASPIRIN E.C. 81 MG (ECOTRIN) TAB PO SCH (08:08)
[2022-03-17] MEDS: CLOPIDOGREL 75 MG (PLAVIX) TABLET PO SCH (08:08)
[2022-03-17] MEDS: FAMOTIDINE 20 MG (PEPCID) TABLET PO SCH ×2 (08:09→21:58)
--- NOTE | 2022-03-17 09:51 | Tele-ICU Progress Note ---
Progress Note video rounds completed 61 y/o male with COPD admitted with pulmonary edema Required mechanical ventilation Ventr: 24/500/50%/6 ABG this am: 7.35/46/65/25 Had troponin leak and cardiology following Has hx of CAD with stents. PE: sedated on vent Pulse: 63 NSR BP: 190/130 O2 sat: 92% IMP: respiratory failure Systolic CHF with cardiology on consult PLAN: wean as feasable from vent Focused Exam Height, Weight, BMI Height: '" Weight: lbs. oz. kg; 47.61 BMI Method: Labs Laboratory Tests 03/17/22 03:50 CLAUDIO LEWIS MD Mar 17, 2022 09:51
--- NOTE | 2022-03-17 10:08 | Progress Note - Hospitalist ---
Subjective HPI/CC On Admission Date Seen by Provider: Mar 17, 2022 Subjective/Events-last exam Pt remains on vent. No concerns per RN. No family at bedside. Objective Exam Vital Signs Vital Signs Date Time Temp Pulse Resp B/P (MAP) Pulse Ox O2 Delivery O2 Flow Rate FiO2 03/17/22 09:53 64 124/55 03/17/22 09:00 35.9 14 93 Mechanical Ventilator 40.00 03/17/22 06:30 45 Capillary Refill : Less Than 3 Seconds General Appearance: Chronically ill, Obese HEENT: Other (ETT) Respiratory: No Accessory Muscle Use, Decreased Breath Sounds, Other (on vent) Cardiovascular: Regular Rate, Rhythm, No Murmur Gastrointestinal: Normal Bowel Sounds, Non Tender, Soft Extremity: No Calf Tenderness, Pedal Edema (trace) Neurologic/Psychiatric: Other (sedated, appears comfortable) Skin: Normal Color, Warm/Dry Results/Procedures Lab Laboratory Tests 03/17/22 03:50 Patient resulted labs reviewed. Imaging: Reviewed Imaging Report Assessment/Plan Assessment and Plan Assess & Plan/Chief Complaint Acute hypercapnic and hypoxic respiratory failure COPD exacerbation with lower respiratory tract infection Sepsis rule out Intubated 03/12 TeleICU consulted for vent management- planing sedation vacation today Cefepime completed course yesterday- monitor off abx Cultures, sputum with MURF otherwise NGTD Remains on low dose levophed- trying to wean, MAP has been adequate for w eaning Tube feeds started NSTEMI CAD HTN HLD Likely Type II due to above Cardiology consulted, appreciate recs ASA and Plavix BB and joshua-i when BP allows Echo with EF of 35% DMII Sliding Scale Insulin DVT ppx Lovenox Critical Care Ventilator Management Diagnosis/Problems Diagnosis/Problems (1) Acute respiratory failure Qualifiers: Respiratory failure complication: hypoxia and hypercapnia Qualified Codes: J96.01 - Acute respiratory failure with hypoxia; J96.02 - Acute respiratory failure with hypercapnia (2) CAD (coronary artery disease) Qualifiers: Coronary Disease-Associated Artery/Lesion type: unspecified vessel or lesion type [place] vs. transplanted heart: unspecified whether [place] or transplanted heart Associated angina: unspecified whether angina present Qualified Codes: I25.10 - Atherosclerotic heart disease of [place] coronary artery without angina pectoris (3) COPD (chronic obstructive pulmonary disease) Qualifiers: COPD type: COPD with acute lower respiratory infection Qualified Codes: J44.0 - Chronic obstructive pulmonary disease with (acute) lower respiratory infection (4) Essential (primary) hypertension Status: Chronic (5) HLD (hyperlipidemia) Status: Chronic Qualifiers: Hyperlipidemia type: unspecified Qualified Codes: E78.5 - Hyperlipidemia, unspecified (6) COPD with acute bronchitis Status: Acute JAIRO MURILLO MD Mar 17, 2022 10:08
[2022-03-17] MEDS: NOREPINEPHRINE 16 MG in NS (IVPB) 234 ML IV SCH (10:25)
[2022-03-17] MEDS: ENOXAPARIN 40 MG/0.4 ML (LOVENOX) SYR SQ SCH (11:21)
[2022-03-17 11:37] VITALS: BP 135/60
[2022-03-17] MEDS: ENALAPRILAT 2.5 MG/2 ML (VASOTEC) VIAL IV SCH ×2 (13:14→21:58)
--- NOTE | 2022-03-17 13:49 | Progress Note - Cardiology ---
Cardiology SOAP Progress Note Subjective: Extubated several minutes prior to this exam. Mildly confused Does not report cp or palp or syncope or shortness of breath or n/v or focal weakness of gen weakness Objective: I&O/Vital Signs 03/17/22 03/17/22 03/17/22 03/17/22 02:00 02:45 03:00 03:47 Temp 36.7 36.6 Pulse 70 70 71 70 Resp 24 24 24 B/P (MAP) 113/50 Pulse Ox 93 93 93 O2 Delivery Mechanical Ventilator Mechanical Ventilator O2 Flow Rate 40.00 40.00 FiO2 45 03/17/22 03/17/22 03/17/22 03/17/22 04:00 04:00 04:00 05:00 Temp 36.5 36.4 Pulse 70 68 Resp 24 24 B/P (MAP) Pulse Ox 93 93 93 O2 Delivery Mechanical Ventilator Mechanical Ventilator Mechanical Ventilator O2 Flow Rate 40.00 40.00 FiO2 50 50 03/17/22 03/17/22 03/17/22 03/17/22 06:00 06:18 06:30 07:00 Temp 36.3 Pulse 66 66 66 67 Resp 24 24 B/P (MAP) 113/50 Pulse Ox 93 93 O2 Delivery Mechanical Ventilator O2 Flow Rate 40.00 FiO2 45 03/17/22 03/17/22 03/17/22 03/17/22 07:00 08:00 08:00 08:00 Temp 36.3 36.2 Pulse 67 66 Resp 24 24 B/P (MAP) Pulse Ox 91 94 93 O2 Delivery Mechanical Ventilator Mechanical Ventilator Mechanical Ventilator O2 Flow Rate 40.00 40.00 FiO2 50 50 03/17/22 03/17/22 03/17/22 03/17/22 08:07 09:00 09:53 10:00 Temp 35.9 36.1 Pulse 66 66 64 64 Resp 14 24 B/P (MAP) 117/51 124/55 Pulse Ox 93 92 O2 Delivery Mechanical Ventilator Mechanical Ventilator O2 Flow Rate 40.00 40.00 03/17/22 03/17/22 11:00 12:00 Temp 36.2 36.2 Pulse 75 85 Resp 24 26 B/P (MAP) Pulse Ox 93 95 O2 Delivery Mechanical Ventilator Mechanical Ventilator O2 Flow Rate 40.00 40.00 03/17/22 00:00 Intake Total 830 ml Output Total 1975 ml Balance -1145 ml Constitutional: other (mildly confused, but appropriately responsive) Respiratory: other (intubated; good air entry) Cardiovascular: regular rate-rhythm Gastrointestional: soft, round, audible bowel sounds Extremities: no lower extremity edema bilateral Neurologic/Psychiatric: other (moves all limbs equally) Skin: No rash on exposed areas, No ulcerations on exposed areas Results/Procedures: Labs Laboratory Tests 03/16/22 17:51: Glucometer 121H 03/16/22 23:36: Glucometer 119H 03/17/22 03:50: White Blood Count 5.8, Red Blood Count 3.59L, Hemoglobin 11.6L, Hematocrit 35L, Mean Corpuscular Volume 97, Mean Corpuscular Hemoglobin 32, Mean Corpuscular Hemoglobin Concent 33, Red Cell Distribution Width 15.7H, Platelet Count 227, Mean Platelet Volume 9.5, Immature Granulocyte % (Auto) 1, Neutrophils (%) (Auto) 52, Lymphocytes (%) (Auto) 36, Monocytes (%) (Auto) 10, Eosinophils (%) (Auto) 2, Basophils (%) (Auto) 1, Neutrophils # (Auto) 3.0, Lymphocytes # (Auto) 2.1, Monocytes # (Auto) 0.6, Eosinophils # (Auto) 0.1, Basophils # (Auto) 0.0, Immature Granulocyte # (Auto) 0.0, Blood Gas Puncture Site ARTLINE, Blood Gas Patient Temperature 36.5, Arterial Blood pH 7.35L, Arterial Blood Partial Pressure CO2 46H, Arterial Blood Partial Pressure O2 65L, Arterial Blood HCO3 25, Arterial Blood Total CO2 26.3, Arterial Blood Oxygen Saturation 94, Arterial Blood Base Excess -0.1, Johnathon Test YES-POS, Blood Gas Ventilator Setting YES, Blood Gas Inspired Oxygen 50%, Sodium Level 141, Potassium Level 4.0, Chloride Level 110H, Carbon Dioxide Level 21, Anion Gap 10, Blood Urea Nitrogen 14, Creatinine 0.92, Estimat Glomerular Filtration Rate 95, BUN/Creatinine Ratio 15, Glucose Level 130H, Calcium Level 8.0L, Phosphorus Level 2.7, Magnesium Level 2.3 03/17/22 11:25: Glucometer 143H Microbiology 03/13/22 MRSA Screen - Final, Complete MRSA not isolated 03/12/22 Blood Culture - Preliminary, Resulted No growth A/P: Assessment: Acute and prolonged resp failure requiring continuing mech vent - extubated on 03/17/22 Ac systolic CHF - echo on 03/12/22: LVEF 35-40%, mod diffuse hypokinesis of LV Minimal troponin elevation - Type 2 [place] d/t hypoxia and transient hypotension CAD with stents x 2 - Family at the bedside reports he had stents done at [facility] in [place], [place] in Nov 2021 at which time he had an [place] COPD per ED documentation - acute on chronic exacerbation Documented h/o HTN Renal insufficiency - undetermined length of time, likely chronic DM per ED documentation HLD per ED documentation Probable NATALIE - advise out pt w/u if this has not already been determined Morbid obesity - BMI approx 50 Plan: * continue diuretis * iv enalaprilat and beta-mj if tolerated by bp (thus far BP has not allowed) * Continue DAPT d/t CAD and family report of recent stent placement in [place] in November 2021 * Consider spironolactone and SGLT2-inhib when able to take oral meds * Sleep studies when able to * Continue DVT prophylaxis * Monitor labs closely NERISSA GARCIA MD FACP [facility] Mar 17, 2022 13:49
--- NOTE | 2022-03-17 13:55 | Tele-ICU Progress Note ---
Progress Note failed sxtubation developed tachypmea and hyoxemia and reintubated Focused Exam Height, Weight, BMI Height: '" Weight: lbs. oz. kg; 47.61 BMI Method: CLAUDIO LEWIS MD Mar 17, 2022 13:55
--- NOTE | 2022-03-17 13:56 | ED Discrepancy Follow up ---
Discrepancy-Follow up Other Discrepancy I was called to the floor to intubate the patient as he was extubated earlier in the day and not doing well. On arrival he was flailing in the bed trying to remove BiPAP. He had significant tachypnea, hypoxia was in obvious respiratory distress. Patient was given etomidate 20 mg, rocuronium 50 mg and bag-valve- mask ventilation was performed until oxygen saturations improved. Once improved patient was intubated using a MAC 4 blade 8 oh ET tube placed at 25 cm at the lip. Placement was confirmed with chest x-ray, end-tidal CO2 and direct visualization, equal breath sounds bilaterally and chest rise. The patient tolerated the procedure well with no complications. Intubation successful on first pass. GRABIEL ALEX DO Mar 17, 2022 13:56
--- NOTE | 2022-03-17 14:02 | Diagnostic Imaging Report ---
CHEST 1 VIEW, AP/PA ONLY Indication: Intubation Comparison: 03/16/2022 Findings: ET tube has tip 4 cm above the alejandro. Enteric tube is not well seen on this examination but likely terminates in the upper abdomen. Right PICC has tip terminating in the region of the lower SVC. Worsening of bilateral perihilar opacities. Layering pleural effusions have worsened, greater on the right. Impression: 1. Well-positioned support devices. 2. Worsening of bilateral pulmonary opacities that are likely on the basis of asymmetric pulmonary edema. Dictated by: Dictated on workstation # [id number]
[2022-03-17] MEDS ORDERED: ETOMIDATE IV SOLN 20 MG/10 ML VIAL IV ONE (14:29)
[2022-03-17] MEDS ORDERED: ROCURONIUM 10 MG/ML 5 ML SYRINGE IV ONE (14:29)
[2022-03-17] MEDS: fentaNYL DRIP PRE-MIX 250 ML IV SCH (14:42)
[2022-03-17 18:50] VITALS: BP 135/47
[2022-03-17 18:56] LABS: ABG BASE EXCESS 1.7 MMOL/L (-2.5-2.5); ABG OXYGEN SATURATION 92 % (94-100); ABG PCO2 43 MMHG (35-45); ABG PO2 57 MMHG (79-93); ABG TCO2 27.6 MMOL/L (21.0-31.0); PATIENT TEMP 36.2; VENTILATOR YES
[2022-03-17 22:39] VITALS: BP 138/65
[2022-03-18] MEDS: ENOXAPARIN 40 MG/0.4 ML (LOVENOX) SYR SQ SCH ×3 (00:14→23:03)
[2022-03-18] MEDS: fentaNYL DRIP PRE-MIX 250 ML IV SCH ×3 (00:19→22:01)
[2022-03-18] MEDS: meTOprolol 5 MG/5 ML (LOPRESSOR) VIAL IV SCH ×5 (01:28→23:03)
[2022-03-18] MEDS: PROPOFOL DRIP (ICU) 100 ML IV SCH ×7 (01:59→23:03)
[2022-03-18 02:14] VITALS: BP 134/69
[2022-03-18] MEDS: RT-ALBUTEROL/IPRATROPIUM 3 ML (DUONEB) VIAL INH SCH ×5 (02:14→22:52)
[2022-03-18] MEDS: NOREPINEPHRINE 16 MG in NS (IVPB) 234 ML IV SCH ×2 (02:31→18:00)
[2022-03-18] MEDS: DexMEDEtomidine 250 ML DRIP 250 ML IV SCH ×5 (02:32→20:04)
[2022-03-18 05:59] LABS: BASOPHILS % (AUTO) 1 % (0-10); EOSINOPHILS # (AUTO) 0.2 10^3/uL (0.0-0.3); EOSINOPHILS % (AUTO) 3 % (0-10); HEMATOCRIT 34 % (40-54); HEMOGLOBIN 11.2 g/dL (13.3-17.7); LYMPHOCYTES # (AUTO) 1.8 10^3/uL (1.0-4.0); LYMPHOCYTES % (AUTO) 29 % (12-44); MEAN CORPUSCULAR HEMOGLOBIN 33 pg (25-34); MEAN CORPUSCULAR HGB CONC 33 g/dL (32-36); MEAN CORPUSCULAR VOLUME 97 fL (80-99); MEAN PLATELET VOLUME 9.5 fL (9.0-12.2); MONOCYTES # (AUTO) 0.6 10^3/uL (0.0-1.0); MONOCYTES % (AUTO) 10 % (0-12); NEUTROPHILS # (AUTO) 3.6 10^3/uL (1.8-7.8); NEUTROPHILS % (AUTO) 58 % (42-75); PLATELET COUNT 247 10^3/uL (130-400); WHITE BLOOD COUNT 6.3 10^3/uL (4.3-11.0)
[2022-03-18 06:04] LABS: ABG BASE EXCESS 1.7 MMOL/L (-2.5-2.5); ABG OXYGEN SATURATION 95 % (94-100); ABG PCO2 44 MMHG (35-45); ABG PH 7.39 (7.37-7.43); ABG PO2 64 MMHG (79-93)
[2022-03-18 06:05] LABS: ALLENS TEST YES-POS; PATIENT TEMP 35.4; VENTILATOR YES
[2022-03-18 06:14] LABS: POTASSIUM 3.6 MMOL/L (3.6-5.0)
[2022-03-18 06:15] LABS: CALCIUM 7.2 MG/DL (8.5-10.1)
[2022-03-18 06:20] LABS: CREATININE SERUM 0.71 MG/DL (0.60-1.30)
[2022-03-18 06:22] LABS: MAGNESIUM 1.9 MG/DL (1.6-2.4)
[2022-03-18] MEDS: MAGNESIUM 1 GM/100 ML IVPB 100 ML IV SCH (06:24)
[2022-03-18] MEDS: KCL 20 MEQ TAB (K-DUR) PO SCH (06:24)
[2022-03-18] MEDS: POTASSIUM CL 10MEQ/50ML IVPB 50 ML IV SCH ×2 (06:38→08:27)
[2022-03-18 07:18] VITALS: BP 147/68
--- NOTE | 2022-03-18 08:03 | Diagnostic Imaging Report ---
INDICATION: Elevated cardiac enzymes, CHF. TECHNIQUE: Single view chest 7:31 AM. CORRELATION STUDY: 03/17/2022 FINDINGS: Endotracheal tube and gastric tube remain in place. Tip of the gastric tube cannot be identified. Heart size mediastinum and vasculature remain enlarged and prominent. The severity of vascular congestion and overall edema however is improved from prior. Likely combination of effusion along with a edema versus infiltrate and/or atelectasis of the right lung base. Question trace left pleural effusion. IMPRESSION: 1. Stable appearance about support lines and tubes. However, the nasogastric tube tip cannot be well visualized. 2. Persistent but overall improvement in severity of edema from prior. Dictated by: Dictated on workstation # [id number]
[2022-03-18] MEDS: ENALAPRILAT 2.5 MG/2 ML (VASOTEC) VIAL IV SCH ×2 (08:29→20:04)
[2022-03-18] MEDS: FUROSEMIDE 40 MG/4 ML INJ (LASIX) IVP SCH ×2 (08:29→19:25)
[2022-03-18] MEDS: FAMOTIDINE 20 MG (PEPCID) TABLET PO SCH ×2 (08:32→20:05)
[2022-03-18] MEDS: ASPIRIN E.C. 81 MG (ECOTRIN) TAB PO SCH (08:32)
[2022-03-18] MEDS: CLOPIDOGREL 75 MG (PLAVIX) TABLET PO SCH (08:33)
--- NOTE | 2022-03-18 09:51 | Tele-ICU Progress Note ---
Subjective Date Seen by a Provider: Mar 18, 2022 Time Seen by a Provider: 09:51 Subjective/Events-last exam (Tele-ICU Physician , consultation) Available chart/ vitals / labs / Images reviewed H&P is from ER notes Patient's information available about PMH, allergy reviewed in EMR. ROS as per chart and RN report Video assessment done using teleICU camera, rest of exam as per RN Discussed with RN. This patient who has a history of myocardial infarction in the recent past admitted with acute pulmonary edema and acute respiratory failure requiring intubation. He apparently he was extubated after He SBT however he did not last long enough after an hour or so he had to be intubated. Currently he is on 80% FiO2 with a PEEP of 6. Chest x-ray still showing pulmonary edema changes. He is currently on a Lasix 40 mg IV every 12 hours. Impression 1. Acute pulmonary edema 2. Acute hypoxic respiratory failure requiring mechanical ventilation 3. Previous history of myocardial infarction with decreased 4. History of COPD 5. History of hypertension and hyperlipidemia. Recommendations 1. Advised her to decrease IV fluids to KVO 2. Continue IV diuretic therapy per cardiology 3. Increase the PEEP to 10 and decrease FiO2 as tolerated. 4. DVT prophylaxis and ulcer prophylaxis. Sepsis Event Evaluation Height, Weight, BMI Height: '" Weight: lbs. oz. kg; 47.61 BMI Method: Exam Exam Patient acknowledged, consented, and participated in this virtual visit which was conducted using real time audio/video Vital Signs Date Time Temp Pulse Resp B/P (MAP) Pulse Ox O2 Delivery O2 Flow Rate FiO2 03/18/22 09:00 66 93 Mechanical Ventilator 40.00 03/18/22 08:54 65 135/56 03/18/22 08:00 66 94 Mechanical Ventilator 40.00 Automatic Cuff 03/18/22 08:00 35.7 03/18/22 08:00 80 03/18/22 07:35 65 03/18/22 07:18 65 26 95 80 03/18/22 07:00 63 95 Mechanical Ventilator 40.00 Automatic Cuff 03/18/22 06:29 65 150/67 03/18/22 06:00 65 95 Mechanical Ventilator 40.00 03/18/22 05:59 64 03/18/22 05:46 66 157/72 03/18/22 05:00 63 95 Mechanical Ventilator 40.00 03/18/22 04:19 63 03/18/22 04:00 64 95 Mechanical Ventilator 40.00 03/18/22 04:00 95 Mechanical Ventilator 80 03/18/22 04:00 80 03/18/22 03:00 65 95 Mechanical Ventilator 40.00 03/18/22 02:32 64 131/65 03/18/22 02:26 64 03/18/22 02:14 64 26 95 80 03/18/22 02:00 64 20 95 Mechanical Ventilator 40.00 03/18/22 01:59 64 135/72 03/18/22 01:00 64 26 94 Mechanical Ventilator 40.00 03/18/22 01:00 64 03/18/22 00:19 65 146/68 03/18/22 00:00 65 26 94 Mechanical Ventilator 40.00 03/18/22 00:00 94 Mechanical Ventilator 80 03/18/22 00:00 80 03/17/22 23:00 65 26 93 Mechanical Ventilator 40.00 03/17/22 22:39 63 26 94 80 03/17/22 22:30 35.5 03/17/22 22:24 64 137/65 03/17/22 22:00 63 94 Mechanical Ventilator 40.00 03/17/22 21:59 63 136/65 03/17/22 21:00 64 93 Mechanical Ventilator 40.00 03/17/22 20:00 94 Mechanical Ventilator 80 03/17/22 20:00 80 03/17/22 20:00 64 92 Mechanical Ventilator 40.00 03/17/22 19:07 65 136/65 03/17/22 19:00 70 03/17/22 19:00 64 20 93 Mechanical Ventilator 40.00 03/17/22 18:50 64 26 92 80 03/17/22 18:45 64 134/67 03/17/22 18:00 65 92 Mechanical Ventilator 40.00 03/17/22 17:08 66 133/66 03/17/22 17:00 67 94 Mechanical Ventilator 40.00 03/17/22 16:00 80 03/17/22 16:00 72 90 Mechanical Ventilator 40.00 03/17/22 16:00 36.2 03/17/22 16:00 95 Mechanical Ventilator 80 03/17/22 15:47 77 101/51 03/17/22 15:00 90 90 Mechanical Ventilator 40.00 03/17/22 14:42 96 123/57 03/17/22 14:00 97 13 94 Mechanical Ventilator 40.00 03/17/22 13:55 120 226/87 03/17/22 13:00 96 03/17/22 13:00 105 21 92 Mechanical Ventilator 40.00 03/17/22 12:10 85 146/63 03/17/22 12:00 50 03/17/22 12:00 93 Mechanical Ventilator 50 03/17/22 12:00 36.2 85 26 95 Mechanical Ventilator 40.00 03/17/22 11:37 82 23 93 55 03/17/22 11:00 36.2 75 24 93 Mechanical Ventilator 40.00 03/17/22 10:20 64 122/54 03/17/22 10:00 36.1 64 24 92 Mechanical Ventilator 40.00 03/17/22 09:53 64 124/55 I & O 03/18/22 07:00 Intake Total 3390 ml Output Total 3100 ml Balance 290 ml Height & Weight Height: '" Weight: lbs. oz. kg; 47.61 BMI Method: General Appearance: Chronically ill, Obese, Other (intubated) HEENT: Moist Mucous Membranes; No Scleral Icterus (L), No Scleral Icterus (R) Neck: Normal Inspection, Supple Respiratory: Decreased Breath Sounds, Other (tachypneic on vent) Cardiovascular: Regular Rate, Rhythm, No Murmur Capillary Refill: Less Than 3 Seconds Gastrointestinal: normal bowel sounds, non tender, soft Extremity: No Calf Tenderness, Pedal Edema (trace) Neurologic/Psychiatric: Other (sedated, appears comfortable ) Skin: Normal Color, Warm/Dry Results Lab Laboratory Tests 03/17/22 03:50 03/18/22 05:52 Assessment/Plan Assessment/Plan as above Critical Care: Ventilator Management Time spent with patient (mins): 32 AGUSTO TRAN MD Mar 18, 2022 09:51
[2022-03-18 10:00] VITALS: BP 119/58
[2022-03-18] MEDS: NS IV 1000 ML 1,000 ML IV SCH (10:05)
--- NOTE | 2022-03-18 12:26 | Progress Note - Hospitalist ---
DOMINIK RICE MED STUDENT 03/18/22 1226: Subjective HPI/CC On Admission Date Seen by Provider: Mar 18, 2022 Time Seen by Provider: 08:00 Patient is a 61-year-old -[place] male with past medical history of coronary artery disease, hypertension, hyperlipidemia,, COPD who presented to the emergency department due to hypoxia and chest pain. He was seen at the walk-in clinic at [facility] and complained of chest pain to them and he was referred to the emergency department. He has been seen in the ER multiple times in the past week or so but has declined most work-up at those visits. This visit he did allow for labs and x-ray which revealed an NSTEMI. He was admitted for further management. Unfortunately overnight his respiratory status worsened and he required intubation. He is unable to provide me any history due to this and thus all history was obtained from the records. Subjective/Events-last exam Pt being seen on hospitalist service for acute respiratory failure and elevated cardiac enzymes. Pt was admitted on 03/11 for elevated cardiac enzymes and was intubated on 03/12. Pt was extubated for an hour yesterday, but became hypoxic and required re-intubation. Pt currently intubated and sedated on 80% FiO2 and PEEP of 6 at 95% oxygen saturation. Discussed pt's condition with ex and daughter and that he would likely need tracheostomy if he is unable to be extubated soon. Objective Exam Vital Signs Vital Signs Date Time Temp Pulse Resp B/P (MAP) Pulse Ox O2 Delivery O2 Flow Rate FiO2 03/18/22 11:59 67 137/56 03/18/22 11:00 93 Mechanical Ventilator 40.00 03/18/22 10:00 26 80 03/18/22 08:00 35.7 Capillary Refill : Less Than 3 Seconds General Appearance: Chronically ill, Other (intubated and sedated) HEENT: PERRL/EOMI, Moist Mucous Membranes Respiratory: Chest Non Tender, Decreased Breath Sounds (at bases bilaterally), Other (intubated; coarse breath sounds bilaterally) Cardiovascular: Regular Rate, Rhythm, No Murmur Gastrointestinal: Soft, Abnormal Bowel Sounds (hypoactive) Extremity: Pedal Edema (1+ pitting edema) Neurologic/Psychiatric: Other (intubated and sedated) Skin: Normal Color, Warm/Dry Results/Procedures Lab Laboratory Tests 03/18/22 05:52 Patient resulted labs reviewed. Imaging: Reviewed Imaging Report Assessment/Plan Assessment and Plan Assess & Plan/Chief Complaint Acute hypercapnic and hypoxic respiratory failure COPD with lower respiratory tract infection Sepsis NSTEMI CAD HTN HLD DMII Acute hypercapnic and hypoxic respiratory failure -Intubated and sedated since 03/12 -Extubated yesterday for one hour with re-intubation after hypoxia -Discussed tracheostomy with ex and daughter -Tube feeds COPD with lower respiratory tract infection Sepsis -Cefepime finished on 03/16 -Off levophed NSTEMI -Cardiology consulted -Possible plan for sleep study? -Aspirin and plavix -BB and joshua-inhibitor as tolerated -Echo showed EF of 35% DMII -SSI CAD HTN HLD Disposition: Poor prognosis d/t multiple comorbidities. Tracheostomy discussed with family as pt has failed extubation and will not likely get off ventilator soon. Family dynamics are complicated as to who is making medical decisions, once this becomes clearer, will consider hospice/palliative care discussion. DVT ppx: lovenox GI ppx: Pepcid Code Status: Full Code MIRACLE MOLINA MD 03/18/22 1816: Subjective HPI/CC On Admission Time Seen by Provider: 09:30 Objective Results/Procedures Imaging: Reviewed Imaging Report Assessment/Plan Assessment and Plan Assess & Plan/Chief Complaint Extubated and reintubated yesterday due to respiratory failure. Continue diuresis. Ventilator management per TeleICU. Prognosis and plan of care discussed with family at bedside. Diagnosis/Problems Diagnosis/Problems (1) Acute respiratory failure Status: Acute Qualifiers: Qualified Codes: J96.01 - Acute respiratory failure with hypoxia; J96.02 - Acute respiratory failure with hypercapnia (2) NSTEMI (non-ST elevation myocardial infarction) Status: Acute (3) Acute HFrEF (heart failure with reduced ejection fraction) Status: Acute (4) PNA (pneumonia) Status: Resolved Resolution Date/Time: 03/18/22 @ 18:15 (5) COPD (chronic obstructive pulmonary disease) Status: Acute Qualifiers: Qualified Codes: J44.0 - Chronic obstructive pulmonary disease with (acute) lower respiratory infection (6) Morbid obesity Status: Chronic Supervisory-Addendum Brief Verification & Attestation Participated in pt care: history, MDM, physical Personally performed: exam, history, MDM, supervision of care Care discussed with: Medical Student Procedures: n/a Results interpretation: Verified all documentation A medical student performed and documented this service in my presence. I review ed and verified all information documented by the medical student and made modifications to such information, when appropriate. I personally performed the physical exam and medical decision making. DOMINIK RICE MED STUDENT Mar 18, 2022 12:26 MIRACLE MOLINA MD Mar 18, 2022 18:16
--- NOTE | 2022-03-18 12:28 | Progress Note - Cardiology ---
Cardiology SOAP Progress Note Subjective: Worsening resp status after brief extubation yesterday [facility], non-communicative Objective: I&O/Vital Signs 03/18/22 03/18/22 03/18/22 03/18/22 01:00 01:00 01:59 02:00 Pulse 64 64 64 64 Resp 26 20 B/P (MAP) 135/72 Pulse Ox 94 95 O2 Delivery Mechanical Ventilator Mechanical Ventilator O2 Flow Rate 40.00 40.00 03/18/22 03/18/22 03/18/22 03/18/22 02:14 02:26 02:32 03:00 Pulse 64 64 64 65 Resp 26 B/P (MAP) 131/65 Pulse Ox 95 95 O2 Delivery Mechanical Ventilator O2 Flow Rate 40.00 FiO2 80 03/18/22 03/18/22 03/18/22 03/18/22 04:00 04:00 04:00 04:19 Pulse 64 63 B/P (MAP) Pulse Ox 95 95 O2 Delivery Mechanical Ventilator Mechanical Ventilator O2 Flow Rate 40.00 FiO2 80 80 03/18/22 03/18/22 03/18/22 03/18/22 05:00 05:46 05:59 06:00 Pulse 63 66 64 65 B/P (MAP) 157/72 Pulse Ox 95 95 O2 Delivery Mechanical Ventilator Mechanical Ventilator O2 Flow Rate 40.00 40.00 03/18/22 03/18/22 03/18/22 03/18/22 06:29 07:00 07:18 07:35 Pulse 65 63 65 65 Resp 26 B/P (MAP) 150/67 Automatic Cuff Pulse Ox 95 95 O2 Delivery Mechanical Ventilator O2 Flow Rate 40.00 FiO2 80 03/18/22 03/18/22 03/18/22 03/18/22 08:00 08:00 08:00 08:00 Temp 35.7 Pulse 66 B/P (MAP) Automatic Cuff Pulse Ox 92 94 O2 Delivery Mechanical Ventilator Mechanical Ventilator O2 Flow Rate 40.00 FiO2 80 80 03/18/22 03/18/22 03/18/22 03/18/22 08:54 09:00 10:00 10:00 Pulse 65 66 68 68 Resp 26 26 B/P (MAP) 135/56 Pulse Ox 93 92 92 O2 Delivery Mechanical Ventilator Mechanical Ventilator O2 Flow Rate 40.00 40.00 FiO2 80 12/503/18/22 03/18/22 03/18/22 10:05 10:42 11:00 11:59 Pulse 67 67 67 67 B/P (MAP) 120/51 124/51 137/56 Pulse Ox 93 O2 Delivery Mechanical Ventilator O2 Flow Rate 40.00 03/18/22 00:00 Intake Total 1780 ml Output Total 2100 ml Balance -320 ml Constitutional: other (mildly confused, but appropriately responsive) Respiratory: other (Intubated, on mech vent, non-communicative) Cardiovascular: regular rate-rhythm Gastrointestional: soft, round, audible bowel sounds Extremities: no lower extremity edema bilateral Neurologic/Psychiatric: other (moves all limbs equally) Skin: No rash on exposed areas, No ulcerations on exposed areas Results/Procedures: Labs Laboratory Tests 03/17/22 18:40: Blood Gas Puncture Site ART LINE, Blood Gas Patient Temperature 36.2, Arterial Blood pH 7.40, Arterial Blood Partial Pressure CO2 43, Arterial Blood Partial Pressure O2 57L, Arterial Blood HCO3 26, Arterial Blood Total CO2 27.6, Arterial Blood Oxygen Saturation 92L, Arterial Blood Base Excess 1.7, Johnathon Test N/A, Blood Gas Ventilator Setting YES, Blood Gas Inspired Oxygen UNK 03/17/22 18:47: Glucometer 136H 03/18/22 02:35: Glucometer 139H 03/18/22 05:52: Blood Gas Puncture Site LEFT RADIAL ARTLINE, Blood Gas Patient Temperature 35.4, Arterial Blood pH 7.39, Arterial Blood Partial Pressure CO2 44, Arterial Blood Partial Pressure O2 64L, Arterial Blood HCO3 27, Arterial Blood Total CO2 28.0, Arterial Blood Oxygen Saturation 95, Arterial Blood Base Excess 1.7, Johnathon Test YES-POS, Blood Gas Ventilator Setting YES, Blood Gas Inspired Oxygen NA, White Blood Count 6.3, Red Blood Count 3.44L, Hemoglobin 11.2L, Hematocrit 34L, Mean Corpuscular Volume 97, Mean Corpuscular Hemoglobin 33, Mean Corpuscular Hemoglobin Concent 33, Red Cell Distribution Width 15.7H, Platelet Count 247, Mean Platelet Volume 9.5, Immature Granulocyte % (Auto) 1, Neutrophils (%) (Auto) 58, Lymphocytes (%) (Auto) 29, Monocytes (%) (Auto) 10, Eosinophils (%) (Auto) 3, Basophils (%) (Auto) 1, Neutrophils # (Auto) 3.6, Lymphocytes # (Auto) 1.8, Monocytes # (Auto) 0.6, Eosinophils # (Auto) 0.2, Basophils # (Auto) 0.0, Immature Granulocyte # (Auto) 0.1, Sodium Level 141, Potassium Level 3.6, Chloride Level 113H, Carbon Dioxide Level 20L, Anion Gap 8, Blood Urea Nitrogen 14, Creatinine 0.71, Estimat Glomerular Filtration Rate 104, BUN/Creatinine Ratio 20, Glucose Level 129H, Calcium Level 7.2L, Phosphorus Level 2.0L, Magnesium Level 1.9 Microbiology 03/13/22 MRSA Screen - Final, Complete MRSA not isolated 03/12/22 Blood Culture - Final, Complete No growth Laboratory Tests 03/17/22 03:50 03/18/22 05:52 Laboratory Tests 03/17/22 03:50 03/18/22 05:52 A/P: Assessment: Acute and prolonged resp failure requiring continuing mech vent - extubated on 03/17/22 and reintubated the same day Ac systolic CHF - echo on 03/12/22: LVEF 35-40%, mod diffuse hypokinesis of LV Minimal troponin elevation - Type 2 DE d/t hypoxia and transient hypotension CAD with stents x 2 - Family at the bedside reports he had stents done at [facility] in [place], [place] in Nov 2021 at which time he had an DE COPD per ED documentation - acute on chronic exacerbation Documented h/o HTN Renal insufficiency - undetermined length of time, likely chronic DM per ED documentation HLD per ED documentation Probable NATALIE - advise out pt w/u if this has not already been determined Morbid obesity - BMI approx 50 Plan: * continue diuretics * iv enalaprilat and beta-mj if tolerated by bp (thus far BP has not allowed) * Continue DAPT d/t CAD and family report of recent stent placement in [place] in November 2021 * Consider spironolactone and SGLT2-inhib when able to take oral meds * Sleep studies when able to * Continue DVT prophylaxis * Monitor labs closely * Consider transfer to a tertiary care facility due to continuing resp failure and mech vent NERISSA GARCIA MD [facility] Mar 18, 2022 12:28
[2022-03-18 14:39] VITALS: BP 149/66
[2022-03-18 18:59] VITALS: BP 115/58
[2022-03-18 22:53] VITALS: BP 128/68
[2022-03-19] MEDS: DexMEDEtomidine 250 ML DRIP 250 ML IV SCH ×5 (00:10→19:36)
[2022-03-19 02:17] VITALS: BP 137/71
[2022-03-19] MEDS: RT-ALBUTEROL/IPRATROPIUM 3 ML (DUONEB) VIAL INH SCH ×6 (02:17→22:09)
[2022-03-19] MEDS: PROPOFOL DRIP (ICU) 100 ML IV SCH ×7 (02:53→22:35)
[2022-03-19 03:46] LABS: ABG BASE EXCESS 3.3 MMOL/L (-2.5-2.5); ABG OXYGEN SATURATION 93 % (94-100); ABG PCO2 51 MMHG (35-45); ABG PH 7.36 (7.37-7.43); ABG PO2 62 MMHG (79-93); ABG TCO2 30.2 MMOL/L (21.0-31.0)
[2022-03-19 03:47] LABS: ALLENS TEST YES-POS; BASOPHILS % (AUTO) 1 % (0-10); EOSINOPHILS # (AUTO) 0.2 10^3/uL (0.0-0.3); EOSINOPHILS % (AUTO) 3 % (0-10); HEMATOCRIT 38 % (40-54); HEMOGLOBIN 12.3 g/dL (13.3-17.7); LYMPHOCYTES # (AUTO) 1.9 10^3/uL (1.0-4.0); LYMPHOCYTES % (AUTO) 32 % (12-44); MEAN CORPUSCULAR HEMOGLOBIN 32 pg (25-34); MEAN CORPUSCULAR HGB CONC 33 g/dL (32-36); MEAN CORPUSCULAR VOLUME 98 fL (80-99); MEAN PLATELET VOLUME 9.4 fL (9.0-12.2); MONOCYTES # (AUTO) 0.6 10^3/uL (0.0-1.0); MONOCYTES % (AUTO) 10 % (0-12); NEUTROPHILS # (AUTO) 3.2 10^3/uL (1.8-7.8); NEUTROPHILS % (AUTO) 54 % (42-75); PLATELET COUNT 296 10^3/uL (130-400); VENTILATOR YES; WHITE BLOOD COUNT 5.8 10^3/uL (4.3-11.0)
[2022-03-19 03:48] LABS: PATIENT TEMP 35.9
[2022-03-19 04:06] LABS: SMEAR SCAN COMMENT NO
[2022-03-19 04:07] LABS: ALBUMIN 2.8 GM/DL (3.2-4.5); BILIRUBIN,TOTAL 0.2 MG/DL (0.1-1.0); CALCIUM 8.6 MG/DL (8.5-10.1); CREATININE SERUM 0.78 MG/DL (0.60-1.30); MAGNESIUM 1.9 MG/DL (1.6-2.4); TOTAL PROTEIN 5.5 GM/DL (6.4-8.2)
[2022-03-19] MEDS: KCL 20 MEQ TAB (K-DUR) PO SCH (04:24)
[2022-03-19] MEDS: MAGNESIUM 1 GM/100 ML IVPB 100 ML IV SCH (04:24)
[2022-03-19] MEDS: meTOprolol 5 MG/5 ML (LOPRESSOR) VIAL IV SCH ×4 (05:16→22:36)
[2022-03-19 06:52] VITALS: BP 121/65
--- NOTE | 2022-03-19 08:29 | Diagnostic Imaging Report ---
INDICATION: Respiratory failure. TECHNIQUE/COMPARISON: A frontal chest was obtained at 3:11 AM and compared to 03/18/2022. FINDINGS: The ET tube and NG tube are unchanged. The heart is borderline in size. There is some infiltrate in the right lung base with improved aeration compared to the prior study with better visualization of the right hemidiaphragm. The left lung is clear. There is no pneumothorax. IMPRESSION: Improving right basilar infiltrate compared to the prior study. Stable life support lines. No new finding otherwise seen. Dictated by: Dictated on workstation # [id number]
[2022-03-19] MEDS: CLOPIDOGREL 75 MG (PLAVIX) TABLET PO SCH (09:40)
[2022-03-19] MEDS: FUROSEMIDE 40 MG/4 ML INJ (LASIX) IVP SCH ×2 (09:40→17:30)
[2022-03-19] MEDS: FAMOTIDINE 20 MG (PEPCID) TABLET PO SCH ×2 (09:40→19:49)
[2022-03-19] MEDS: ENALAPRILAT 2.5 MG/2 ML (VASOTEC) VIAL IV SCH ×2 (09:40→19:49)
[2022-03-19] MEDS: ASPIRIN E.C. 81 MG (ECOTRIN) TAB PO SCH (09:40)
[2022-03-19 10:21] VITALS: BP 117/64
--- NOTE | 2022-03-19 10:27 | Progress Note - Cardiology ---
Cardiology SOAP Progress Note Subjective: Remains intubated and sedated Objective: I&O/Vital Signs 03/19/22 03/19/22 03/19/22 03/19/22 03:00 03:05 03:30 04:00 Temp 36.1 Pulse 70 68 Resp 26 B/P (MAP) 137/71 Pulse Ox 95 O2 Delivery Mechanical Ventilator Mechanical Ventilator O2 Flow Rate 75.00 75.00 FiO2 75 03/19/22 03/19/22 03/19/22 03/19/22 04:00 04:05 04:24 04:27 Pulse 71 68 68 Resp 94 B/P (MAP) 137/71 137/71 Pulse Ox 95 93 O2 Delivery Mechanical Ventilator Mechanical Ventilator O2 Flow Rate 75.00 FiO2 75 03/19/22 03/19/22 03/19/22 03/19/22 05:00 05:49 06:00 06:52 Pulse 70 68 69 67 Resp 26 26 26 B/P (MAP) 137/71 Pulse Ox 95 95 95 O2 Delivery Mechanical Ventilator Mechanical Ventilator O2 Flow Rate 75.00 75.00 FiO2 75 03/19/22 03/19/22 03/19/22 03/19/22 07:00 07:14 08:00 08:00 Temp 36.0 Pulse 67 68 69 Resp 26 20 B/P (MAP) Pulse Ox 95 96 O2 Delivery Mechanical Ventilator Mechanical Ventilator O2 Flow Rate 75.00 75.00 03/19/22 03/19/22 03/19/22 03/19/22 08:48 08:49 09:00 10:21 Pulse 69 69 69 69 Resp 27 26 B/P (MAP) 97/56 97/56 Pulse Ox 94 94 O2 Delivery Mechanical Ventilator O2 Flow Rate 75.00 FiO2 75 03/19/22 03/19/22 03/19/22 03/19/22 10:41 12:33 13:30 14:17 Pulse 70 70 70 70 Resp 27 B/P (MAP) 112/61 106/59 105/59 Pulse Ox 94 FiO2 75 03/19/22 00:00 Intake Total 1230 ml Output Total 1425 ml Balance -195 ml Constitutional: other (mildly confused, but appropriately responsive) Respiratory: other (Intubated, on mech vent, non-communicative) Cardiovascular: regular rate-rhythm Gastrointestional: soft, round, audible bowel sounds Extremities: no lower extremity edema bilateral Neurologic/Psychiatric: other (moves all limbs equally) Skin: No rash on exposed areas, No ulcerations on exposed areas Results/Procedures: Labs Laboratory Tests 03/18/22 19:23: Glucometer 140H 03/19/22 00:37: Glucometer 136H 03/19/22 03:35: White Blood Count 5.8, Red Blood Count 3.85L, Hemoglobin 12.3L, Hematocrit 38L, Mean Corpuscular Volume 98, Mean Corpuscular Hemoglobin 32, Mean Corpuscular Hemoglobin Concent 33, Red Cell Distribution Width 15.5H, Platelet Count 296, Mean Platelet Volume 9.4, Immature Granulocyte % (Auto) 1, Neutrophils (%) ( Auto) 54, Lymphocytes (%) (Auto) 32, Monocytes (%) (Auto) 10, Eosinophils (%) (Auto) 3, Basophils (%) (Auto) 1, Neutrophils # (Auto) 3.2, Lymphocytes # (Auto) 1.9, Monocytes # (Auto) 0.6, Eosinophils # (Auto) 0.2, Basophils # (Auto) 0.0, Immature Granulocyte # (Auto) 0.0, Blood Gas Puncture Site LEFT RADIAL ARTLINE, Blood Gas Patient Temperature 35.9, Arterial Blood pH 7.36L, Arterial Blood Partial Pressure CO2 51H, Arterial Blood Partial Pressure O2 62L, Arterial Blood HCO3 29H, Arterial Blood Total CO2 30.2, Arterial Blood Oxygen Saturation 93L, Arterial Blood Base Excess 3.3H, Johnathon Test YES-POS, Blood Gas Ventilator Setting YES, Blood Gas Inspired Oxygen NA, Sodium Level 143, Potassium Level 4.0, Chloride Level 109H, Carbon Dioxide Level 23, Anion Gap 11, Blood Urea Nitrogen 15, Creatinine 0.78, Estimat Glomerular Filtration Rate 101, BUN/Creatinine Ratio 19, Glucose Level 141H, Calcium Level 8.6, Corrected Calcium 9.6, Phosphorus Level 3.0, Magnesium Level 1.9, Total Bilirubin 0.2, Aspartate Amino Transf (AST/SGOT) 28, Alanine Aminotransferase (ALT/SGPT) 29, Alkaline Phosphatase 101, Total Protein 5.5L, Albumin 2.8L, Smear Scan NO 03/19/22 11:02: Glucometer 135H Microbiology 03/13/22 MRSA Screen - Final, Complete MRSA not isolated 03/12/22 Blood Culture - Final, Complete No growth Procedures NAME: [facility] REC#: [id number] PT STATUS: ADM IN : 1960 PHYSICIAN: AGUSTO TRAN MD ADMIT DATE: 03/11/22/ICU Draft Date of Exam:03/19/22 CHEST 1 VIEW, AP/PA ONLY INDICATION: Respiratory failure. TECHNIQUE/COMPARISON: A frontal chest was obtained at 3:11 AM and compared to 03/18/2022. FINDINGS: The ET tube and NG tube are unchanged. The heart is borderline in size. There is some infiltrate in the right lung base with improved aeration compared to the prior study with better visualization of the right hemidiaphragm. The left lung is clear. There is no pneumothorax. IMPRESSION: Improving right basilar infiltrate compared to the prior study. Stable life support lines. No new finding otherwise seen. Dictated on workstation # [id number] Dict: 03/19/2224 Trans: 03/19/22 [id number] Interpreted by: RAFAELA BAEZ MD Electronically signed by: A/P: Assessment: Acute and prolonged resp failure requiring continuing mech vent - extubated on 03/17/22 and reintubated the same day Ac systolic CHF - echo on 03/12/22: LVEF 35-40%, mod diffuse hypokinesis of LV Minimal troponin elevation - Type 2 VA d/t hypoxia and transient hypotension CAD with stents x 2 - Family at the bedside reports he had stents done at [facility] in [place], [place] in Nov 2021 at which time he had an VA COPD per ED documentation - acute on chronic exacerbation Documented h/o HTN Renal insufficiency - undetermined length of time, likely chronic DM per ED documentation HLD per ED documentation Probable NATALIE - advise out pt w/u if this has not already been determined Morbid obesity - BMI approx 50 Plan: * continue diuretics * Continue iv enalaprilat and beta-mj as tolerated by bp * Continue DAPT d/t CAD and family report of recent stent placement in [place] in November 2021 * Consider spironolactone and SGLT2-inhib when able to take oral meds * Sleep studies when able to * Continue DVT prophylaxis * Monitor labs closely * Consider transfer to a tertiary care facility due to continuing resp failure and mech vent FREDDY ERICKSON Mar 19, 2022 10:27
[2022-03-19] MEDS ORDERED: FUROSEMIDE 40 MG/4 ML INJ (LASIX) IVP NR (10:30)
[2022-03-19] MEDS: ENOXAPARIN 40 MG/0.4 ML (LOVENOX) SYR SQ SCH ×2 (10:40→22:36)
[2022-03-19] MEDS: NS IV 1000 ML 1,000 ML IV SCH (10:41)
[2022-03-19] MEDS: fentaNYL DRIP PRE-MIX 250 ML IV SCH ×2 (10:41→22:36)
--- NOTE | 2022-03-19 11:30 | Progress Note - Hospitalist ---
DOMINIK RICE MED STUDENT 03/19/22 1130: Subjective HPI/CC On Admission Date Seen by Provider: Mar 19, 2022 Time Seen by Provider: 08:00 Patient is a 61-year-old -[place] male with past medical history of coronary artery disease, hypertension, hyperlipidemia,, COPD who presented to the emergency department due to hypoxia and chest pain. [facility] and complained of chest pain to them and he was referred to the emergency department. He has been seen in the ER multiple times in the past week or so but has declined most work-up at those visits. This visit he did allow for labs and x-ray which revealed an NSTEMI. He was admitted for further management. Unfortunately overnight his respiratory status worsened and he required intubation. He is unable to provide me any history due to this and thus all history was obtained from the records. Subjective/Events-last exam Pt being seen in f/u for acute respiratory failure and NSTEMI. Pt remains intubated and sedated at this time. Norepinephrine has been stopped. Pt remains on precedex, propofol and fentanyl. Will try sedation vacation. Pt has decent urine output, but will increase lasix to achieve greater output. Unable to obtain ROS d/t sedation. Objective Exam Vital Signs Vital Signs Date Time Temp Pulse Resp B/P (MAP) Pulse Ox O2 Delivery O2 Flow Rate FiO2 03/19/22 12:33 70 106/59 03/19/22 10:21 26 94 75 03/19/22 09:00 Mechanical Ventilator 75.00 03/19/22 08:00 36.0 Capillary Refill : Less Than 3 Seconds General Appearance: Chronically ill, Other (intubated and sedated) HEENT: PERRL/EOMI, Moist Mucous Membranes Respiratory: Other (intubated with coarse breath sounds) Cardiovascular: Regular Rate, Rhythm, No Murmur Gastrointestinal: Soft, Abnormal Bowel Sounds (hypoactive bowel sounds) Extremity: Pedal Edema (mild nonpitting edema) Neurologic/Psychiatric: Other Skin: Normal Color, Warm/Dry Results/Procedures Lab Laboratory Tests 03/19/22 03:35 Patient resulted labs reviewed. Imaging: Reviewed Imaging Report Assessment/Plan Assessment and Plan Assess & Plan/Chief Complaint Acute hypercapnic and hypoxic respiratory failure CHF COPD with lower respiratory tract infection Sepsis NSTEMI CAD HTN HLD DMII Acute hypercapnic and hypoxic respiratory failure -Intubated and sedated since 03/12 -Extubated 03/17 for one hour with re-intubation after hypoxia -Discussed tracheostomy with ex and daughter yesterday -Tube feeds CHF -Lasix 80mg BID IV -Strict I/O COPD with lower respiratory tract infection Sepsis -Cefepime finished on 03/16 -Off levophed NSTEMI -Cardiology consulted -Possible plan for sleep study? -Aspirin and plavix -BB and joshua-inhibitor as tolerated -Echo showed EF of 35% DMII -SSI CAD HTN HLD Disposition: Poor prognosis d/t multiple comorbidities. Will increase lasix and monitor I/O's. Continue to try sedation vacation as tolerated DVT ppx: lovenox GI ppx: Pepcid Code Status: Full Code Diagnosis/Problems Diagnosis/Problems (1) COPD (chronic obstructive pulmonary disease) Status: Acute Qualifiers: Qualified Codes: J44.0 - Chronic obstructive pulmonary disease with (acute) lower respiratory infection (2) Acute respiratory failure Status: Acute Qualifiers: Qualified Codes: J96.01 - Acute respiratory failure with hypoxia; J96.02 - Acute respiratory failure with hypercapnia (3) Morbid obesity Status: Chronic (4) NSTEMI (non-ST elevation myocardial infarction) Status: Acute (5) Acute HFrEF (heart failure with reduced ejection fraction) Status: Acute (6) CAD (coronary artery disease) Qualifiers: Qualified Codes: I25.10 - Atherosclerotic heart disease of [place] coronary artery without angina pectoris MIRACLE MOLINA MD 03/19/22 1841: Subjective HPI/CC On Admission Time Seen by Provider: 09:45 Assessment/Plan Assessment and Plan Assess & Plan/Chief Complaint Remains on ventilator with high oxygen requirements. Increase Lasix. Consider adding Metolazone if needed. Received a course of antibiotics for pneumonia. Poor prognosis, critical status discussed with family at bedside and in [place] via telephone. Critical Care: Critically Ill Patient Diagnosis/Problems Diagnosis/Problems (1) Acute HFrEF (heart failure with reduced ejection fraction) Status: Acute (2) Acute respiratory failure Status: Acute Qualifiers: Qualified Codes: J96.01 - Acute respiratory failure with hypoxia; J96.02 - Acute respiratory failure with hypercapnia (3) COPD (chronic obstructive pulmonary disease) Status: Acute Qualifiers: Qualified Codes: J44.0 - Chronic obstructive pulmonary disease with (acute) lower respiratory infection (4) Morbid obesity Status: Chronic (5) NSTEMI (non-ST elevation myocardial infarction) Status: Acute (6) CAD (coronary artery disease) Qualifiers: Qualified Codes: I25.10 - Atherosclerotic heart disease of [place] coronary artery without angina pectoris Supervisory-Addendum Brief Verification & Attestation Participated in pt care: history, MDM, physical Personally performed: exam, history, MDM, supervision of care Care discussed with: Medical Student Procedures: n/a Results interpretation: Verified all documentation A medical student performed and documented this service in my presence. I reviewed and verified all information documented by the medical student and made modifications to such information, when appropriate. I personally performed the physical exam and medical decision making. DOMINIK RICE MED STUDENT Mar 19, 2022 11:30 MIRACLE MOLINA MD Mar 19, 2022 18:41
--- NOTE | 2022-03-19 13:48 | Tele-ICU Progress Note ---
Subjective Date Seen by a Provider: Mar 19, 2022 Time Seen by a Provider: 13:46 Subjective/Events-last exam (Tele-ICU Physician , consultation) Available chart/ vitals / labs / Images reviewed H&P is from ER notes Patient's information available about PMH, allergy reviewed in EMR. ROS as per chart and RN report Video assessment done using teleICU camera, rest of exam as per RN Discussed with RN. Today he remained on mechanical ventilation and his FiO2 down to only 75% with a PEEP of 10. Chest x-ray still showing pulmonary congestive changes and I do not think he is ready for SBT. His blood pressure is somewhat soft. Bowel sounds are hypoactive but tolerating tube feeds. Impression 1. Acute pulmonary edema 2. Acute hypoxic respiratory failure requiring mechanical ventilation 3. Previous history of myocardial infarction with decreased 4. History of COPD 5. History of hypertension and hyperlipidemia. Recommendations 1. Advised her to decrease IV fluids to KVO 2. Continue IV diuretic therapy per cardiology 3. continue the PEEP to 10 and decrease FiO2 as tolerated. 4. DVT prophylaxis and ulcer prophylaxis. 5. Not ready for SBT Sepsis Event Evaluation Height, Weight, BMI Height: '" Weight: lbs. oz. kg; 49.98 BMI Method: Exam Exam Patient acknowledged, consented, and participated in this virtual visit which was conducted using real time audio/video Vital Signs Date Time Temp Pulse Resp B/P (MAP) Pulse Ox O2 Delivery O2 Flow Rate FiO2 03/19/22 13:30 70 105/59 03/19/22 12:33 70 106/59 03/19/22 10:41 70 112/61 03/19/22 10:21 69 26 94 75 03/19/22 09:00 69 27 94 Mechanical Ventilator 75.00 03/19/22 08:49 69 97/56 03/19/22 08:48 69 97/56 03/19/22 08:00 69 20 96 Mechanical Ventilator 75.00 03/19/22 08:00 36.0 03/19/22 07:14 68 03/19/22 07:00 67 26 95 Mechanical Ventilator 75.00 03/19/22 06:52 67 26 95 75 03/19/22 06:00 69 26 95 Mechanical Ventilator 75.00 03/19/22 05:49 68 137/71 03/19/22 05:00 70 26 95 Mechanical Ventilator 75.00 03/19/22 04:27 93 Mechanical Ventilator 75 03/19/22 04:24 68 137/71 03/19/22 04:05 68 137/71 03/19/22 04:00 71 94 95 Mechanical Ventilator 75.00 03/19/22 04:00 75 03/19/22 03:30 36.1 Mechanical Ventilator 75.00 03/19/22 03:05 68 137/71 03/19/22 03:00 70 26 95 Mechanical Ventilator 75.00 03/19/22 02:53 68 137/71 03/19/22 02:17 68 26 95 75 03/19/22 02:00 68 26 96 Mechanical Ventilator 75.00 03/19/22 02:00 68 137/71 03/19/22 01:00 70 03/19/22 01:00 70 26 95 Mechanical Ventilator 75.00 03/19/22 00:40 94 Mechanical Ventilator 75 03/19/22 00:38 35.9 26 Mechanical Ventilator 75.00 03/19/22 00:10 70 128/68 03/19/22 00:10 70 128/68 03/19/22 00:00 75 03/19/22 00:00 72 26 94 Mechanical Ventilator 75.00 03/18/22 23:40 70 128/68 03/18/22 23:03 70 128/68 03/18/22 23:00 70 26 94 Mechanical Ventilator 75.00 03/18/22 22:53 70 26 94 75 03/18/22 22:01 65 115/58 03/18/22 22:00 70 26 94 Mechanical Ventilator 75.00 03/18/22 21:00 69 26 94 Mechanical Ventilator 75.00 03/18/22 20:11 35.7 03/18/22 20:04 65 115/58 03/18/22 20:00 68 26 92 Mechanical Ventilator 75.00 03/18/22 20:00 75 03/18/22 20:00 93 Mechanical Ventilator 75 03/18/22 19:39 65 115/58 03/18/22 19:39 65 115/58 03/18/22 19:31 Mechanical Ventilator 75.00 03/18/22 19:07 65 115/58 03/18/22 19:00 65 26 93 Mechanical Ventilator 75.00 03/18/22 19:00 65 03/18/22 18:59 65 27 93 75 03/18/22 18:00 68 25 92 Mechanical Ventilator 40.00 03/18/22 17:00 70 26 90 Mechanical Ventilator 40.00 03/18/22 16:00 75 03/18/22 16:00 66 139/61 03/18/22 16:00 66 19 92 Mechanical Ventilator 40.00 03/18/22 16:00 92 Mechanical Ventilator 75 03/18/22 15:50 36.0 03/18/22 15:07 67 135/60 03/18/22 15:07 67 135/60 03/18/22 15:00 82 26 92 Mechanical Ventilator 40.00 03/18/22 14:45 65 150/66 03/18/22 14:39 68 26 92 75 03/18/22 14:10 64 144/64 03/18/22 14:00 64 26 93 Mechanical Ventilator 40.00 I & O 03/19/22 07:00 Intake Total 3170 ml Output Total 4100 ml Balance -930 ml Height & Weight Height: '" Weight: lbs. oz. kg; 49.98 BMI Method: General Appearance: Chronically ill, Obese, Other (intubated) HEENT: Moist Mucous Membranes; No Scleral Icterus (L), No Scleral Icterus (R) Neck: Normal Inspection, Supple Respiratory: Decreased Breath Sounds, Other (tachypneic on vent) Cardiovascular: Regular Rate, Rhythm, No Murmur Capillary Refill: Less Than 3 Seconds Gastrointestinal: normal bowel sounds, non tender, soft Extremity: No Calf Tenderness, Pedal Edema (trace) Neurologic/Psychiatric: Other (sedated, appears comfortable ) Skin: Normal Color, Warm/Dry Results Lab Laboratory Tests 03/18/22 05:52 03/19/22 03:35 Assessment/Plan Assessment/Plan as aboe Critical Care: Critically Ill Patient Time spent with patient (mins): 30 AGUSTO TRAN MD Mar 19, 2022 13:48
[2022-03-19 14:17] VITALS: BP 98/57
--- NOTE | 2022-03-19 14:26 | Progress Note - Cardiology ---
Cardiology SOAP Progress Note Subjective: Intubated, on mech vent, non-communicative Objective: I&O/Vital Signs 03/19/22 03/19/22 03/19/22 03/19/22 02:53 03:00 03:05 03:30 Temp 36.1 Pulse 68 70 68 Resp 26 B/P (MAP) 137/71 137/71 Pulse Ox 95 O2 Delivery Mechanical Ventilator Mechanical Ventilator O2 Flow Rate 75.00 75.00 03/19/22 03/19/22 03/19/22 03/19/22 04:00 04:00 04:05 04:24 Pulse 71 68 68 Resp 94 B/P (MAP) 137/71 137/71 Pulse Ox 95 O2 Delivery Mechanical Ventilator O2 Flow Rate 75.00 FiO2 75 03/19/22 03/19/22 03/19/22 03/19/22 04:27 05:00 05:49 06:00 Pulse 70 68 69 Resp 26 26 B/P (MAP) 137/71 Pulse Ox 93 95 95 O2 Delivery Mechanical Ventilator Mechanical Ventilator Mechanical Ventilator O2 Flow Rate 75.00 75.00 FiO2 75 03/19/22 03/19/22 03/19/22 03/19/22 06:52 07:00 07:14 08:00 Temp 36.0 Pulse 67 67 68 Resp 26 B/P (MAP) Pulse Ox 95 95 O2 Delivery Mechanical Ventilator O2 Flow Rate 75.00 FiO2 75 03/19/22 03/19/22 03/19/22 03/19/22 08:00 08:48 08:49 09:00 Pulse 69 69 69 69 Resp 20 27 B/P (MAP) 97/56 97/56 Pulse Ox 96 94 O2 Delivery Mechanical Ventilator Mechanical Ventilator O2 Flow Rate 75.00 75.00 03/19/22 03/19/22 03/19/22 03/19/22 10:21 10:41 12:33 13:30 Pulse 69 70 70 70 Resp B/P (MAP) 112/61 106/59 105/59 Pulse Ox 94 FiO2 75 03/19/22 14:17 Pulse 70 Resp 27 Pulse Ox 94 FiO2 75 03/19/22 00:00 Intake Total 1230 ml Output Total 1425 ml Balance -195 ml Constitutional: other (mildly confused, but appropriately responsive) Respiratory: other (Intubated, on mech vent, non-communicative) Cardiovascular: regular rate-rhythm Gastrointestional: soft, round, audible bowel sounds Extremities: no lower extremity edema bilateral Neurologic/Psychiatric: other (moves all limbs equally) Skin: No rash on exposed areas, No ulcerations on exposed areas Results/Procedures: Labs Laboratory Tests 03/18/22 19:23: Glucometer 140H 03/19/22 00:37: Glucometer 136H 03/19/22 03:35: White Blood Count 5.8, Red Blood Count 3.85L, Hemoglobin 12.3L, Hematocrit 38L, Mean Corpuscular Volume 98, Mean Corpuscular Hemoglobin 32, Mean Corpuscular Hemoglobin Concent 33, Red Cell Distribution Width 15.5H, Platelet Count 296, Mean Platelet Volume 9.4, Immature Granulocyte % (Auto) 1, Neutrophils (%) (Auto) 54, Lymphocytes (%) (Auto) 32, Monocytes (%) (Auto) 10, Eosinophils (%) (Auto) 3, Basophils (%) (Auto) 1, Neutrophils # (Auto) 3.2, Lymphocytes # (Auto) 1.9, Monocytes # (Auto) 0.6, Eosinophils # (Auto) 0.2, Basophils # (Auto) 0.0, Immature Granulocyte # (Auto) 0.0, Blood Gas Puncture Site LEFT RADIAL ARTLINE, Blood Gas Patient Temperature 35.9, Arterial Blood pH 7.36L, Arterial Blood Par tial Pressure CO2 51H, Arterial Blood Partial Pressure O2 62L, Arterial Blood HCO3 29H, Arterial Blood Total CO2 30.2, Arterial Blood Oxygen Saturation 93L, Arterial Blood Base Excess 3.3H, Johnathon Test YES-POS, Blood Gas Ventilator Setting YES, Blood Gas Inspired Oxygen NA, Sodium Level 143, Potassium Level 4.0, Chloride Level 109H, Carbon Dioxide Level 23, Anion Gap 11, Blood Urea N itrogen 15, Creatinine 0.78, Estimat Glomerular Filtration Rate 101, BUN/Creatinine Ratio 19, Glucose Level 141H, Calcium Level 8.6, Corrected Calcium 9.6, Phosphorus Level 3.0, Magnesium Level 1.9, Total Bilirubin 0.2, Aspartate Amino Transf (AST/SGOT) 28, Alanine Aminotransferase (ALT/SGPT) 29, Alkaline Phosphatase 101, Total Protein 5.5L, Albumin 2.8L, Smear Scan NO 03/19/22 11:02: Glucometer 135H Microbiology 03/13/22 MRSA Screen - Final, Complete MRSA not isolated 03/12/22 Blood Culture - Final, Complete No growth Laboratory Tests 03/18/22 05:52 03/19/22 03:35 A/P: Assessment: Acute and prolonged resp failure requiring continuing mech vent - extubated on 03/17/22 and reintubated the same day Ac systolic CHF - echo on 03/12/22: LVEF 35-40%, mod diffuse hypokinesis of LV Minimal troponin elevation - Type 2 MS d/t hypoxia and transient hypotension CAD with stents x 2 - Family at the bedside reports he had stents done at [facility] in [place], [place] in Nov 2021 at which time he had an MS COPD per ED documentation - acute on chronic exacerbation Documented h/o HTN Renal insufficiency - undetermined length of time, likely chronic DM per ED documentation HLD per ED documentation Probable NATALIE - advise out pt w/u if this has not already been determined Morbid obesity - BMI approx 50 Plan: * continue diuretics * Continue iv enalaprilat and beta-mj as tolerated by bp * Continue DAPT d/t CAD and family report of recent stent placement in [place] in November 2021 * Consider spironolactone and SGLT2-inhib when able to take oral meds * Sleep studies when able to * Continue DVT prophylaxis * Monitor labs closely * Consider transfer to a tertiary care facility due to continuing resp failure and mech vent NERISSA GARCIA MD FACP [facility] Mar 19, 2022 14:26
[2022-03-19] MEDS ORDERED: FUROSEMIDE 40 MG/4 ML INJ (LASIX) IVP SCH (17:00)
[2022-03-19 19:03] VITALS: BP 115/62
[2022-03-19] MEDS: LACRI-LUBE OPTHALMIC OINT 3.5 GM TUBE OU SCH (21:09)
[2022-03-19 22:09] VITALS: BP 115/62
[2022-03-20] MEDS: PROPOFOL DRIP (ICU) 100 ML IV SCH ×7 (01:10→21:28)
[2022-03-20] MEDS: DexMEDEtomidine 250 ML DRIP 250 ML IV SCH ×4 (01:10→19:29)
[2022-03-20 03:21] VITALS: BP 124/64
[2022-03-20] MEDS: RT-ALBUTEROL/IPRATROPIUM 3 ML (DUONEB) VIAL INH SCH ×6 (03:21→21:52)
[2022-03-20 04:14] LABS: ABG BASE EXCESS 5.1 MMOL/L (-2.5-2.5); ABG OXYGEN SATURATION 93 % (94-100); ABG PCO2 50 MMHG (35-45); ABG PH 7.39 (7.37-7.43); ABG PO2 59 MMHG (79-93); ABG TCO2 31.5 MMOL/L (21.0-31.0); BASOPHILS % (AUTO) 1 % (0-10); EOSINOPHILS # (AUTO) 0.2 10^3/uL (0.0-0.3); EOSINOPHILS % (AUTO) 3 % (0-10); HEMATOCRIT 39 % (40-54); HEMOGLOBIN 12.5 g/dL (13.3-17.7); LYMPHOCYTES # (AUTO) 1.7 10^3/uL (1.0-4.0); LYMPHOCYTES % (AUTO) 25 % (12-44); MEAN CORPUSCULAR HEMOGLOBIN 32 pg (25-34); MEAN CORPUSCULAR HGB CONC 33 g/dL (32-36); MEAN CORPUSCULAR VOLUME 97 fL (80-99); MEAN PLATELET VOLUME 9.4 fL (9.0-12.2); MONOCYTES # (AUTO) 0.7 10^3/uL (0.0-1.0); MONOCYTES % (AUTO) 11 % (0-12); NEUTROPHILS % (AUTO) 60 % (42-75); PLATELET COUNT 339 10^3/uL (130-400); WHITE BLOOD COUNT 6.6 10^3/uL (4.3-11.0)
[2022-03-20 04:15] LABS: ALLENS TEST YES-POS; PATIENT TEMP 36.3; VENTILATOR YES
[2022-03-20 04:39] LABS: CALCIUM 8.7 MG/DL (8.5-10.1); CREATININE SERUM 0.82 MG/DL (0.60-1.30); MAGNESIUM 1.8 MG/DL (1.6-2.4); PHOSPHORUS 3.9 MG/DL (2.3-4.7); POTASSIUM 4.1 MMOL/L (3.6-5.0)
[2022-03-20] MEDS: POTASSIUM CL 10MEQ/50ML IVPB 50 ML IV SCH (05:01)
[2022-03-20] MEDS: MAGNESIUM 1 GM/100 ML IVPB 100 ML IV SCH (05:02)
[2022-03-20] MEDS: KCL 20 MEQ TAB (K-DUR) PO SCH (05:02)
[2022-03-20] MEDS: meTOprolol 5 MG/5 ML (LOPRESSOR) VIAL IV SCH ×4 (05:29→23:16)
[2022-03-20] MEDS: FUROSEMIDE 40 MG/4 ML INJ (LASIX) IVP SCH ×2 (05:29→17:57)
[2022-03-20 06:26] VITALS: BP 112/58
[2022-03-20] MEDS ORDERED: ASPIRIN 81 MG CHEW (CHILDREN'S ASA) ONE (08:08)
[2022-03-20] MEDS: fentaNYL DRIP PRE-MIX 250 ML IV SCH ×2 (08:43→21:28)
[2022-03-20] MEDS: FAMOTIDINE 20 MG (PEPCID) TABLET PO SCH (08:44)
[2022-03-20] MEDS: LACRI-LUBE OPTHALMIC OINT 3.5 GM TUBE OU SCH ×3 (08:44→20:33)
[2022-03-20] MEDS: CLOPIDOGREL 75 MG (PLAVIX) TABLET PO SCH (08:44)
[2022-03-20] MEDS: ENALAPRILAT 2.5 MG/2 ML (VASOTEC) VIAL IV SCH ×2 (08:44→20:33)
[2022-03-20] MEDS: ASPIRIN 81 MG CHEW (CHILDREN'S ASA) PO SCH (08:44)
[2022-03-20] MEDS ORDERED: METOLAZONE 2.5 MG (ZAROXOLYN) TAB PO NR (09:00)
[2022-03-20] MEDS ORDERED: METOLAZONE 5 MG (ZAROXOLYN) TAB PO NR (09:00)
[2022-03-20 10:37] VITALS: BP 116/62
--- NOTE | 2022-03-20 10:41 | Progress Note - Cardiology ---
Cardiology SOAP Progress Note Subjective: Remains intubated and sedated Objective: I&O/Vital Signs 03/20/22 03/20/22 03/20/22 03/20/22 21:52 22:00 23:00 23:19 Temp 37.0 37.0 37.0 Pulse 68 Resp 26 26 26 26 B/P (MAP) Pulse Ox 98 98 99 O2 Delivery Mechanical Ventilator Mechanical Ventilator Mechanical Ventilator O2 Flow Rate 60.00 60.00 50.00 FiO2 60 03/20/22 03/20/22 03/21/22 03/21/22 23:20 23:22 00:00 00:47 Temp 37.0 Pulse 66 Resp 26 B/P (MAP) Pulse Ox 98 98 O2 Delivery Mechanical Ventilator Mechanical Ventilator O2 Flow Rate 50.00 FiO2 50 60 03/21/22 03/21/22 03/21/22 03/21/22 01:00 01:00 02:00 02:10 Temp 37.1 37.1 Pulse 68 68 Resp 17 10 B/P (MAP) 98/51 98/51 Pulse Ox 96 96 O2 Delivery Mechanical Ventilator Mechanical Ventilator O2 Flow Rate 50.00 50.00 03/21/22 03/21/22 03/21/22 03/21/22 02:12 02:26 03:00 03:45 Temp 37.1 36.8 Pulse 65 Resp 26 B/P (MAP) Pulse Ox 96 96 95 O2 Delivery Mechanical Ventilator Mechanical Ventilator Mechanical Ventilator O2 Flow Rate 50.00 50.00 FiO2 50 50 03/21/22 03/21/22 03/21/22 03/21/22 03:45 04:00 04:17 05:00 Temp 37.0 36.8 Pulse 65 Resp 26 26 B/P (MAP) 115/50 Pulse Ox 97 99 O2 Delivery Mechanical Ventilator Mechanical Ventilator O2 Flow Rate 50.00 50.00 FiO2 60 03/21/22 03/21/22 03/21/22 03/21/22 06:00 06:17 06:36 07:00 Temp 36.7 Pulse 65 Resp 26 26 B/P (MAP) 115/50 Pulse Ox 99 O2 Delivery Mechanical Ventilator Mechanical Ventilator Mechanical Ventilator O2 Flow Rate 50.00 40.00 35.00 03/21/22 03/21/22 03/21/22 03/21/22 07:09 07:48 07:57 08:00 Pulse 61 62 62 B/P (MAP) 107/55 107/55 FiO2 35 03/21/22 03/21/22 08:00 08:00 Temp 36.7 Pulse Ox 97 O2 Delivery Mechanical Ventilator FiO2 35 03/21/22 00:00 Intake Total 980 ml Output Total 2575 ml Balance -1595 ml Constitutional: other (mildly confused, but appropriately responsive) Respiratory: other (Intubated, on mech vent, non-communicative) Cardiovascular: regular rate-rhythm Gastrointestional: soft, round, audible bowel sounds Extremities: no lower extremity edema bilateral Neurologic/Psychiatric: other (moves all limbs equally) Skin: No rash on exposed areas, No ulcerations on exposed areas Results/Procedures: Labs Laboratory Tests 03/20/22 13:04: Glucometer 115H 03/20/22 18:43: Glucometer 124H 03/20/22 23:25: Glucometer 108 03/21/22 04:20: White Blood Count 7.3, Red Blood Count 3.85L, Hemoglobin 12.3L, Hematocrit 37L, Mean Corpuscular Volume 97, Mean Corpuscular Hemoglobin 32, Mean Corpuscular Hemoglobin Concent 33, Red Cell Distribution Width 15.4H, Platelet Count 351, Mean Platelet Volume 9.5, Immature Granulocyte % (Auto) 1, Neutrophils (%) (Auto) 60, Lymphocytes (%) (Auto) 26, Monocytes (%) (Auto) 12, Eosinophils (%) (Auto) 1, Basophils (%) (Auto) 1, Neutrophils # (Auto) 4.4, Lymphocytes # (Auto) 1.9, Monocytes # (Auto) 0.9, Eosinophils # (Auto) 0.1, Basophils # (Auto) 0.0, Immature Granulocyte # (Auto) 0.1, Blood Gas Puncture Site LRAD, Blood Gas Patient Temperature 36.8, Arterial Blood pH 7.40, Arterial Blood Partial Pressure CO2 49H, Arterial Blood Partial Pressure O2 61L, Arterial Blood HCO3 30H, Arterial Blood Total CO2 31.4H, Arterial Blood Oxygen Saturation 91L, Arterial Blood Base Excess 5.3H, Johnathon Test ART LINE, Blood Gas Ventilator Setting YES, Blood Gas Inspired Oxygen 50%, Sodium Level 142, Potassium Level 3.6, Chloride Level 105, Carbon Dioxide Level 26, Anion Gap 11, Blood Urea Nitrogen 25H, Creatinine 1.13, Estimat Glomerular Filtration Rate 74, BUN/Creatinine Ratio 22, Glucose Level 136H, Calcium Level 8.8, Phosphorus Level 4.0, Magnesium Level 1.7 Microbiology 03/13/22 MRSA Screen - Final, Complete MRSA not isolated 03/12/22 Blood Culture - Final, Complete No growth A/P: Assessment: Acute and prolonged resp failure requiring continuing mech vent - extubated on 03/17/22 and reintubated the same day Ac systolic CHF - echo on 03/12/22: LVEF 35-40%, mod diffuse hypokinesis of LV Minimal troponin elevation - Type 2 [place] d/t hypoxia and transient hypotension CAD with stents x 2 - Family at the bedside reports he had stents done at [facility] in [place], [place] in Nov 2021 at which time he had an [place] COPD per ED documentation - acute on chronic exacerbation Documented h/o HTN Renal insufficiency - undetermined length of time, likely chronic DM per ED documentation HLD per ED documentation Probable NATALIE - advise out pt w/u if this has not already been determined Morbid obesity - BMI approx 50 Plan: * continue diuretics * Continue iv enalaprilat and beta-mj as tolerated by bp * Continue DAPT d/t CAD and family report of recent stent placement in [place] in November 2021 * Consider spironolactone and SGLT2-inhib when able to take oral meds * Sleep studies when able to * Continue DVT prophylaxis * Monitor labs closely * Consider transfer to a tertiary care facility due to continuing resp failure and mech vent FREDDY ERICKSON Mar 20, 2022 10:41
[2022-03-20] MEDS: ENOXAPARIN 40 MG/0.4 ML (LOVENOX) SYR SQ SCH ×2 (11:24→23:16)
--- NOTE | 2022-03-20 11:47 | Progress Note - Hospitalist ---
DOMINIK RICE MED STUDENT 03/20/22 1147: Subjective HPI/CC On Admission Date Seen by Provider: Mar 20, 2022 Time Seen by Provider: 09:00 Patient is a 61-year-old -Maldivian male with past medical history of coronary artery disease, hypertension, hyperlipidemia,, COPD who presented to the emergency department due to hypoxia and chest pain. He was seen at the walk-in clinic at [facility] and complained of chest pain to them and he was referred to the emergency department. He has been seen in the ER multiple times in the past week or so but has declined most work-up at those visits. This visit he did allow for labs and x-ray which revealed an NSTEMI. He was admitted for further management. Unfortunately overnight his respiratory status worsened and he required intubation. He is unable to provide me any history due to this and thus all history was obtained from the records. Subjective/Events-last exam Pt being seen in f/u for respiratory failure. Pt remains intubated and sedated at time of visit. Earlier this morning a sedation vacation was performed and lasted 10 min. Pt was alert and responsive to yes or no questions. Nurse notified that tube feedings have been stopped d/t residual volumes of >500mL of fluid being taken out after feedings and decreased bowel sounds. Pt had urine output of 1200 yesterday. Objective Exam Vital Signs Vital Signs Date Time Temp Pulse Resp B/P (MAP) Pulse Ox O2 Delivery O2 Flow Rate FiO2 03/20/22 11:29 94 Mechanical Ventilator 60 03/20/22 11:24 72 97/53 03/20/22 10:42 36.8 26 60.00 Capillary Refill : Less Than 3 Seconds General Appearance: Other (intubated and sedated) HEENT: PERRL/EOMI, Moist Mucous Membranes Respiratory: Lungs Clear, Normal Breath Sounds, Other (intubated) Cardiovascular: Regular Rate, Rhythm, No Murmur, Normal Peripheral Pulses Gastrointestinal: Abnormal Bowel Sounds (hypoactive bowel sounds only found in LLQ, decreased from yesterday) Extremity: Normal Capillary Refill, Pedal Edema (1+ pitting edema to knee bilaterally) Neurologic/Psychiatric: Other (intubated and sedated) Skin: Normal Color, Warm/Dry Results/Procedures Lab Laboratory Tests 03/20/22 04:00 Patient resulted labs reviewed. Imaging: Reviewed Imaging Report Assessment/Plan Assessment and Plan Assess & Plan/Chief Complaint Acute hypercapnic and hypoxic respiratory failure CHF COPD with lower respiratory tract infection Sepsis NSTEMI CAD HTN HLD DMII Acute hypercapnic and hypoxic respiratory failure -Intubated and sedated since 03/12, decreasing oxygen requirement -Extubated 03/17 for one hour with re-intubation after hypoxia -Sedation vacation performed this morning 03/20 for 10 min, pt was alert and followed commands -Tube feeds stopped d/t increasing residual volume CHF -Lasix 80mg BID IV -Will add metolazone as well -Strict I/O COPD with lower respiratory tract infection Sepsis -Cefepime finished on 03/16 -Off levophed NSTEMI -Cardiology consulted -Possible plan for sleep study? -Aspirin and plavix -BB and joshua-inhibitor as tolerated -Echo showed EF of 35% DMII -SSI CAD HTN HLD Disposition: Will discuss with family that pt is doing better today, his oxygen requirement has decreased and we will continue with lasix and metolazone. There is concern from who is DPOA that she would like to extubate pt at this time. Will discuss that this is not recommended as his condition is improving. Ethics committee has been consulted DVT ppx: lovenox GI ppx: Pepcid, consider switching to protonix for stronger PUD prevention Code Status: Full Code Diagnosis/Problems Diagnosis/Problems (1) COPD (chronic obstructive pulmonary disease) Status: Acute Qualifiers: Qualified Codes: J44.0 - Chronic obstructive pulmonary disease with (acute) lower respiratory infection (2) Acute respiratory failure Status: Acute Qualifiers: Qualified Codes: J96.01 - Acute respiratory failure with hypoxia; J96.02 - Acute respiratory failure with hypercapnia (3) Morbid obesity Status: Chronic (4) NSTEMI (non-ST elevation myocardial infarction) Status: Acute (5) Acute HFrEF (heart failure with reduced ejection fraction) Status: Acute (6) CAD (coronary artery disease) Qualifiers: Qualified Codes: I25.10 - Atherosclerotic heart disease of [place] coronary artery without angina pectoris MIRACLE MOLINA MD 03/20/22 1825: Subjective HPI/CC On Admission Time Seen by Provider: 10:10 Assessment/Plan Assessment and Plan Assess & Plan/Chief Complaint Remains critically ill on ventilator with high oxygen requirements. FiO2 improving slowly. Continue aggressive diuresis. Discussed prognosis and plan of care with family at bedside and on phone. Ethics consulted due to complicated family dynamics. Critical Care: Critically Ill Patient Diagnosis/Problems Diagnosis/Problems (1) Acute HFrEF (heart failure with reduced ejection fraction) Status: Acute (2) Acute respiratory failure Status: Acute Qualifiers: Qualified Codes: J96.01 - Acute respiratory failure with hypoxia; J96.02 - Acute respiratory failure with hypercapnia (3) Endotracheally intubated Status: Acute (4) Morbid obesity Status: Chronic (5) NSTEMI (non-ST elevation myocardial infarction) Status: Acute (6) PNA (pneumonia) Status: Resolved Resolution Date/Time: 03/18/22 @ 18:15 (7) COPD (chronic obstructive pulmonary disease) Status: Acute Qualifiers: Qualified Codes: J44.0 - Chronic obstructive pulmonary disease with (acute) lower respiratory infection Supervisory-Addendum Brief Verification & Attestation Participated in pt care: history, MDM, physical Personally performed: exam, history, MDM, supervision of care Care discussed with: Medical Student Procedures: n/a Results interpretation: Verified all documentation A medical student performed and documented this service in my presence. I reviewed and verified all information documented by the medical student and made modifications to such information, when appropriate. I personally performed the physical exam and medical decision making. DOMINIK RICE MED STUDENT Mar 20, 2022 11:47 MIRACLE MOLINA MD Mar 20, 2022 18:25
--- NOTE | 2022-03-20 12:27 | Tele-ICU Progress Note ---
Subjective Date Seen by a Provider: Mar 20, 2022 Time Seen by a Provider: 12:27 Subjective/Events-last exam (Tele-ICU Physician , consultation) Available chart/ vitals / labs / Images reviewed H&P is from ER notes Patient's information available about PMH, allergy reviewed in EMR. ROS as per chart and RN report Video assessment done using teleICU camera, rest of exam as per RN Discussed with RN. Today he remained on mechanical ventilation and his FiO2 down to only 75% with a PEEP of 10. Chest x-ray still showing pulmonary congestive changes and I do not think he is ready for SBT. His blood pressure is somewhat soft. Bowel sounds are hypoactive but tolerating tube feeds. Impression 1. Acute pulmonary edema slowly improving 2. Acute hypoxic respiratory failure requiring mechanical ventilation 3. Previous history of myocardial infarction with decreased 4. History of COPD 5. History of hypertension and hyperlipidemia. Recommendations 1. Advised her to decrease IV fluids to KVO 2. Continue IV diuretic therapy per cardiology 3. continue the PEEP to 10 and decrease FiO2 as tolerated. 4. DVT prophylaxis and ulcer prophylaxis. 5. Not ready for SBT Sepsis Event Evaluation Height, Weight, BMI Height: '" Weight: lbs. oz. kg; 50.31 BMI Method: Exam Exam Patient acknowledged, consented, and participated in this virtual visit which was conducted using real time audio/video Vital Signs Date Time Temp Pulse Resp B/P (MAP) Pulse Ox O2 Delivery O2 Flow Rate FiO2 03/20/22 11:29 94 Mechanical Ventilator 60 03/20/22 11:28 60 03/20/22 11:24 72 97/53 03/20/22 11:14 71 116/62 03/20/22 10:42 36.8 71 26 93 Mechanical Ventilator 60.00 03/20/22 10:37 71 26 92 60 03/20/22 09:00 36.9 74 26 96 Mechanical Ventilator 60.00 03/20/22 08:43 73 111/57 03/20/22 08:43 73 11/57 03/20/22 08:31 73 112/57 03/20/22 08:00 94 Mechanical Ventilator 60 03/20/22 08:00 36.8 74 27 94 Mechanical Ventilator 60.00 03/20/22 08:00 Mechanical Ventilator 60.00 03/20/22 08:00 36.9 03/20/22 08:00 60 03/20/22 07:17 73 03/20/22 07:00 36.6 72 26 96 Mechanical Ventilator 70.00 03/20/22 07:00 70 112/58 03/20/22 06:26 70 26 95 60 03/20/22 06:00 36.5 71 26 97 Mechanical Ventilator 70.00 03/20/22 05:00 36.5 71 26 95 Mechanical Ventilator 70.00 03/20/22 04:31 70 124/64 03/20/22 04:04 Mechanical Ventilator 70.00 03/20/22 04:03 96 Mechanical Ventilator 70 03/20/22 04:02 36.5 71 26 95 Mechanical Ventilator 70.00 03/20/22 04:00 75 03/20/22 03:21 70 26 96 70 03/20/22 03:00 36.4 70 26 96 Mechanical Ventilator 70.00 03/20/22 02:43 36.4 71 26 96 Mechanical Ventilator 70.00 03/20/22 02:09 36.3 Mechanical Ventilator 75.00 03/20/22 02:00 36.3 70 26 96 Mechanical Ventilator 75.00 03/20/22 01:10 68 115/62 03/20/22 01:10 68 115/62 03/20/22 01:00 36.2 70 26 96 Mechanical Ventilator 75.00 03/20/22 01:00 70 03/20/22 00:00 36.1 69 26 97 Mechanical Ventilator 75.00 03/19/22 23:40 36.4 26 Mechanical Ventilator 75.00 03/19/22 23:39 75 03/19/22 23:38 95 Mechanical Ventilator 75 03/19/22 23:00 36.0 71 26 98 Mechanical Ventilator 75.00 03/19/22 22:36 68 115/62 03/19/22 22:35 68 115/62 03/19/22 22:09 68 27 96 75 03/19/22 22:00 35.8 69 26 97 Mechanical Ventilator 75.00 03/19/22 21:00 35.8 70 26 96 Mechanical Ventilator 75.00 03/19/22 20:00 75 03/19/22 20:00 93 Mechanical Ventilator 75 03/19/22 20:00 35.8 69 26 96 Mechanical Ventilator 75.00 03/19/22 20:00 36.8 03/19/22 19:52 35.9 26 Mechanical Ventilator 75.00 03/19/22 19:35 68 115/62 03/19/22 19:03 68 27 96 75 03/19/22 19:00 35.7 68 26 96 Mechanical Ventilator 75.00 03/19/22 19:00 68 03/19/22 18:00 68 26 97 Mechanical Ventilator 75.00 03/19/22 17:00 69 30 97 Mechanical Ventilator 75.00 03/19/22 16:00 75 03/19/22 16:00 94 Mechanical Ventilator 75 03/19/22 16:00 70 26 96 Mechanical Ventilator 75.00 03/19/22 15:53 70 114/62 03/19/22 15:00 71 26 95 Mechanical Ventilator 75.00 03/19/22 14:17 70 27 94 75 03/19/22 14:00 70 26 94 Mechanical Ventilator 75.00 03/19/22 13:30 70 105/59 03/19/22 13:15 69 03/19/22 13:00 70 26 95 Mechanical Ventilator 75.00 03/19/22 12:50 70 102/58 03/19/22 12:33 70 106/59 I & O 03/20/22 07:00 Intake Total 2950 ml Output Total 5125 ml Balance -2175 ml Height & Weight Height: '" Weight: lbs. oz. kg; 50.31 BMI Method: General Appearance: Other (intubated and sedated) HEENT: PERRL/EOMI, Moist Mucous Membranes Neck: Normal Inspection, Supple Respiratory: Lungs Clear, Normal Breath Sounds, Other (intubated) Cardiovascular: Regular Rate, Rhythm, No Murmur, Normal Peripheral Pulses Capillary Refill: Less Than 3 Seconds Gastrointestinal: normal bowel sounds, non tender, soft Extremity: Normal Capillary Refill, Pedal Edema (1+ pitting edema to knee bilaterally) Neurologic/Psychiatric: Other (intubated and sedated) Skin: Normal Color, Warm/Dry Results Lab Laboratory Tests 03/19/22 03:35 03/20/22 04:00 Assessment/Plan Assessment/Plan as above Critical Care: Ventilator Management Time spent with patient (mins): 35 AGUSTO TRAN MD Mar 20, 2022 12:27
[2022-03-20] MEDS ORDERED: BISACODYL 10 MG SUPP (DULCOLAX) PR PRN (12:30)
[2022-03-20 14:28] VITALS: BP 126/65
--- NOTE | 2022-03-20 16:59 | Progress Note - Cardiology ---
Cardiology SOAP Progress Note Subjective: Intubated, on mech vent, non-communicative Objective: I&O/Vital Signs 03/20/22 03/20/22 03/20/22 03/20/22 05:00 06:00 06:26 07:00 Temp 36.5 36.5 Pulse 71 71 70 70 Resp B/P (MAP) 112/58 Pulse Ox 95 97 95 O2 Delivery Mechanical Ventilator Mechanical Ventilator O2 Flow Rate 70.00 70.00 FiO2 60 03/20/22 03/20/22 03/20/22 03/20/22 07:00 07:17 08:00 08:00 Temp 36.6 36.9 Pulse 72 73 Resp B/P (MAP) Pulse Ox 96 O2 Delivery Mechanical Ventilator O2 Flow Rate 70.00 FiO2 60 03/20/22 03/20/22 03/20/22 03/20/22 08:00 08:00 08:00 08:31 Temp 36.8 Pulse 74 73 Resp B/P (MAP) 112/57 Pulse Ox 94 94 O2 Delivery Mechanical Ventilator Mechanical Ventilator Mechanical Ventilator O2 Flow Rate 60.00 60.00 FiO2 60 03/20/22 03/20/22 03/20/22 03/20/22 08:43 08:43 09:00 10:37 Temp 36.9 Pulse 73 73 74 71 Resp B/P (MAP) 11/57 111/57 Pulse Ox 96 92 O2 Delivery Mechanical Ventilator O2 Flow Rate 60.00 FiO2 60 03/20/22 03/20/22 03/20/22 03/20/22 10:42 11:00 11:14 11:24 Temp 36.8 36.7 Pulse 71 72 71 72 Resp B/P (MAP) 116/62 97/53 Pulse Ox 93 91 O2 Delivery Mechanical Ventilator Mechanical Ventilator O2 Flow Rate 60.00 60.00 03/20/22 03/20/22 03/20/22 03/20/22 11:28 11:29 12:00 12:43 Temp 36.7 Pulse 71 70 Resp B/P (MAP) 126/65 Pulse Ox 94 92 O2 Delivery Mechanical Ventilator Mechanical Ventilator O2 Flow Rate 60.00 FiO2 60 60 03/20/22 03/20/22 03/20/22 03/20/22 12:43 13:00 13:03 13:05 Temp 36.7 Pulse 70 73 71 71 Resp 26 B/P (MAP) 126/65 114/58 Pulse Ox 92 O2 Delivery Mechanical Ventilator O2 Flow Rate 60.00 03/20/22 03/20/22 03/20/22 03/20/22 14:00 14:28 15:00 15:11 Temp 36.8 36.7 Pulse 70 70 71 70 Resp 26 26 26 B/P (MAP) 126/65 Pulse Ox 92 91 93 O2 Delivery Mechanical Ventilator Mechanical Ventilator O2 Flow Rate 60.00 60.00 FiO2 60 03/20/22 03/20/22 03/20/22 15:28 16:00 16:41 Temp 36.6 36.3 Pulse 70 70 Resp 34 B/P (MAP) 126/65 Pulse Ox 90 O2 Delivery Mechanical Ventilator O2 Flow Rate 60.00 03/19/22 23:59 Intake Total 1450 ml Output Total 3075 ml Balance -1625 ml Constitutional: other (Intubated, on mech vent, non-communicative) Respiratory: other (Intubated, on mech vent, non-communicative) Cardiovascular: regular rate-rhythm Gastrointestional: soft, round, audible bowel sounds Extremities: no lower extremity edema bilateral Neurologic/Psychiatric: other (moves all limbs equally) Skin: No rash on exposed areas, No ulcerations on exposed areas Results/Procedures: Labs Laboratory Tests 03/19/22 17:20: Glucometer 119H 03/19/22 23:53: Glucometer 103 03/20/22 04:00: White Blood Count 6.6, Red Blood Count 3.96L, Hemoglobin 12.5L, Hematocrit 39L, Mean Corpuscular Volume 97, Mean Corpuscular Hemoglobin 32, Mean Corpuscular Hemoglobin Concent 33, Red Cell Distribution Width 15.3H, Platelet Count 339, Mean Platelet Volume 9.4, Immature Granulocyte % (Auto) 1, Neutrophils (%) (Auto) 60, Lymphocytes (%) (Auto) 25, Monocytes (%) (Auto) 11, Eosinophils (%) (Auto) 3, Basophils (%) (Auto) 1, Neutrophils # (Auto) 4.0, Lymphocytes # (Auto) 1.7, Monocytes # (Auto) 0.7, Eosinophils # (Auto) 0.2, Basophils # (Auto) 0.0, Immature Granulocyte # (Auto) 0.1, Blood Gas Puncture Site LEFT RADIAL, Blood Gas Patient Temperature 36.3, Arterial Blood pH 7.39, Arterial Blood Partial Pressure CO2 50H, Arterial Blood Partial Pressure O2 59L, Arterial Blood HCO3 30H, Arterial Blood Total CO2 31.5H, Arterial Blood Oxygen Saturation 93L, Arterial Blood Base Excess 5.1H, Johnathon Test YES-POS, Blood Gas Ventilator Setting YES, Blood Gas Inspired Oxygen NA, Sodium Level 143, Potassium Level 4.1, Chloride Level 107, Carbon Dioxide Level 24, Anion Gap 12, Blood Urea Nitrogen 18, Creatinine 0.82, Estimat Glomerular Filtration Rate 100, BUN/Creatinine Ratio 22, Glucose Level 125H, Calcium Level 8.7, Phosphorus Level 3.9, Magnesium Level 1.8, Triglycerides Level 163H 03/20/22 13:04: Glucometer 115H Microbiology 03/13/22 MRSA Screen - Final, Complete MRSA not isolated 03/12/22 Blood Culture - Final, Complete No growth Laboratory Tests 03/19/22 03:35 03/20/22 04:00 A/P: Assessment: Acute and prolonged resp failure requiring continuing mech vent - extubated on 03/17/22 and reintubated the same day Ac systolic CHF - echo on 03/12/22: LVEF 35-40%, mod diffuse hypokinesis of LV Minimal troponin elevation - Type 2 SC d/t hypoxia and transient hypotension CAD with stents x 2 - Family at the bedside reports he had stents done at [facility] in [place], [place] in Nov 2021 at which time he had an SC COPD per ED documentation - acute on chronic exacerbation Documented h/o HTN Renal insufficiency - undetermined length of time, likely chronic DM per ED documentation HLD per ED documentation Probable NATALIE - advise out pt w/u if this has not already been determined Morbid obesity - BMI approx 50 Plan: * continue diuretics * Continue iv enalaprilat and beta-mj as tolerated by bp * Continue DAPT d/t CAD and family report of recent stent placement in [place] in November 2021 * Consider spironolactone and SGLT2-inhib when able to take oral meds * Sleep studies when able to * Continue DVT prophylaxis * Monitor labs closely * Consider transfer to a tertiary care facility due to continuing resp failure and mech vent NERISSA GARCIA MD FACP FAC CCDS Mar 20, 2022 16:59
[2022-03-20 18:37] VITALS: BP 105/54
[2022-03-20 21:52] VITALS: BP 98/51
[2022-03-20] MEDS: NS IV 1000 ML 1,000 ML IV SCH (23:22)
[2022-03-21] MEDS: PROPOFOL DRIP (ICU) 100 ML IV SCH ×7 (01:00→23:08)
[2022-03-21] MEDS: DexMEDEtomidine 250 ML DRIP 250 ML IV SCH ×4 (02:10→19:37)
[2022-03-21] MEDS: RT-ALBUTEROL/IPRATROPIUM 3 ML (DUONEB) VIAL INH SCH ×6 (02:11→21:53)
[2022-03-21 02:12] VITALS: BP 115/50
[2022-03-21 04:27] LABS: ABG BASE EXCESS 5.3 MMOL/L (-2.5-2.5); ABG OXYGEN SATURATION 91 % (94-100); ABG PCO2 49 MMHG (35-45); ABG PO2 61 MMHG (79-93); ABG TCO2 31.4 MMOL/L (21.0-31.0)
[2022-03-21 04:28] LABS: ALLENS TEST ART LINE
[2022-03-21 04:29] LABS: BASOPHILS % (AUTO) 1 % (0-10); EOSINOPHILS # (AUTO) 0.1 10^3/uL (0.0-0.3); EOSINOPHILS % (AUTO) 1 % (0-10); HEMATOCRIT 37 % (40-54); HEMOGLOBIN 12.3 g/dL (13.3-17.7); INSPIRED O2 50%; LYMPHOCYTES # (AUTO) 1.9 10^3/uL (1.0-4.0); LYMPHOCYTES % (AUTO) 26 % (12-44); MEAN CORPUSCULAR HEMOGLOBIN 32 pg (25-34); MEAN CORPUSCULAR HGB CONC 33 g/dL (32-36); MEAN CORPUSCULAR VOLUME 97 fL (80-99); MEAN PLATELET VOLUME 9.5 fL (9.0-12.2); MONOCYTES # (AUTO) 0.9 10^3/uL (0.0-1.0); MONOCYTES % (AUTO) 12 % (0-12); NEUTROPHILS # (AUTO) 4.4 10^3/uL (1.8-7.8); NEUTROPHILS % (AUTO) 60 % (42-75); PATIENT TEMP 36.8; PLATELET COUNT 351 10^3/uL (130-400); VENTILATOR YES; WHITE BLOOD COUNT 7.3 10^3/uL (4.3-11.0)
[2022-03-21 04:51] LABS: POTASSIUM 3.6 MMOL/L (3.6-5.0)
[2022-03-21 04:53] LABS: CALCIUM 8.8 MG/DL (8.5-10.1)
[2022-03-21 04:57] LABS: CREATININE SERUM 1.13 MG/DL (0.60-1.30)
[2022-03-21 04:59] LABS: MAGNESIUM 1.7 MG/DL (1.6-2.4)
[2022-03-21] MEDS: KCL 20 MEQ TAB (K-DUR) PO SCH (05:18)
[2022-03-21] MEDS: MAGNESIUM 1 GM/100 ML IVPB 100 ML IV SCH ×2 (05:18→05:32)
[2022-03-21] MEDS: POTASSIUM CL 10MEQ/50ML IVPB 50 ML IV SCH ×2 (05:18→05:32)
[2022-03-21] MEDS: meTOprolol 5 MG/5 ML (LOPRESSOR) VIAL IV SCH ×4 (05:32→23:08)
[2022-03-21] MEDS: FUROSEMIDE 40 MG/4 ML INJ (LASIX) IVP SCH (05:33)
[2022-03-21 06:45] VITALS: BP 120/59
--- NOTE | 2022-03-21 08:03 | Tele-ICU Progress Note ---
Subjective Date Seen by a Provider: Mar 21, 2022 Time Seen by a Provider: 08:01 Subjective/Events-last exam Available chart/ vitals / labs / Images reviewed H&P is chart notes Patient's information available about PMH, allergy reviewed in EMR. ROS as per chart and RN report Video assessment done using teleICU camera, rest of exam as per RN Discussed with RN. Remains on vent AC 26 Vt 500 FiO2 35%, PEEP 10 ABG 7.48/49/61 CXR from 03/19 shows elevated diaphragms, haziness RLL, inlarged HD CHF/CAD with stents placement-cardiology note read, has diffuse hypokinesis with LVEF 30-35%, on TRUPTI and Beta mj, on DPT COPD On IV Fenttanyl@ 100, Propofol @ 30, Precedex at 1.0 Pt is at RASS -3, , Has PICC line, site looks ok Sepsis Event Evaluation Height, Weight, BMI Height: '" Weight: lbs. oz. kg; 49.21 BMI Method: Exam Exam Patient acknowledged, consented, and participated in this virtual visit which was conducted using real time audio/video Vital Signs Date Time Temp Pulse Resp B/P (MAP) Pulse Ox O2 Delivery O2 Flow Rate FiO2 03/21/22 07:48 62 107/55 03/21/22 06:36 65 115/50 03/21/22 06:17 26 Mechanical Ventilator 40.00 03/21/22 06:00 36.7 26 99 Mechanical Ventilator 50.00 03/21/22 05:00 36.8 26 99 Mechanical Ventilator 50.00 03/21/22 04:17 65 115/50 03/21/22 04:00 37.0 26 97 Mechanical Ventilator 50.00 03/21/22 03:45 60 03/21/22 03:45 95 Mechanical Ventilator 50 03/21/22 03:00 36.8 26 96 Mechanical Ventilator 50.00 03/21/22 02:26 37.1 26 Mechanical Ventilator 50.00 03/21/22 02:12 65 26 96 50 03/21/22 02:10 68 98/51 03/21/22 02:00 37.1 10 96 Mechanical Ventilator 50.00 03/21/22 01:00 37.1 17 96 Mechanical Ventilator 50.00 03/21/22 01:00 68 98/51 03/21/22 00:47 66 03/21/22 00:00 37.0 26 98 Mechanical Ventilator 50.00 03/20/22 23:22 60 03/20/22 23:20 98 Mechanical Ventilator 50 03/20/22 23:19 37.0 26 Mechanical Ventilator 50.00 03/20/22 23:00 37.0 26 99 Mechanical Ventilator 60.00 03/20/22 22:00 37.0 26 98 Mechanical Ventilator 60.00 03/20/22 21:52 68 26 98 60 03/20/22 21:28 66 105/54 03/20/22 21:28 66 105/54 03/20/22 21:00 36.9 26 99 Mechanical Ventilator 60.00 03/20/22 20:22 94 Mechanical Ventilator 60 03/20/22 20:00 60 03/20/22 20:00 36.8 26 98 Mechanical Ventilator 60.00 03/20/22 19:30 36.7 26 Mechanical Ventilator 60.00 03/20/22 19:29 66 105/54 03/20/22 19:00 69 03/20/22 19:00 36.8 26 97 Mechanical Ventilator 60.00 03/20/22 18:37 66 26 97 60 03/20/22 18:05 66 113/58 03/20/22 18:00 36.7 67 18 98 Mechanical Ventilator 60.00 03/20/22 17:03 70 126/65 03/20/22 17:00 36.6 68 26 100 Mechanical Ventilator 60.00 03/20/22 16:41 36.3 03/20/22 16:00 36.6 70 34 90 Mechanical Ventilator 60.00 03/20/22 16:00 60 03/20/22 16:00 96 Mechanical Ventilator 60 03/20/22 15:28 70 126/65 03/20/22 15:11 70 126/65 03/20/22 15:00 36.7 71 26 93 Mechanical Ventilator 60.00 03/20/22 14:28 70 26 91 60 03/20/22 14:00 36.8 70 26 92 Mechanical Ventilator 60.00 03/20/22 13:05 71 03/20/22 13:03 71 114/58 03/20/22 13:00 36.7 73 26 92 Mechanical Ventilator 60.00 03/20/22 12:43 70 126/65 03/20/22 12:43 70 126/65 03/20/22 12:00 36.7 71 26 92 Mechanical Ventilator 60.00 03/20/22 11:29 94 Mechanical Ventilator 60 03/20/22 11:28 60 03/20/22 11:24 72 97/53 03/20/22 11:14 71 116/62 03/20/22 11:00 36.7 72 26 91 Mechanical Ventilator 60.00 03/20/22 10:42 36.8 71 26 93 Mechanical Ventilator 60.00 03/20/22 10:37 71 26 92 60 03/20/22 09:00 36.9 74 26 96 Mechanical Ventilator 60.00 03/20/22 08:43 73 111/57 03/20/22 08:43 73 1103/20/22 08:31 73 112/57 I & O 03/21/22 07:00 Intake Total 2370 ml Output Total 4750 ml Balance -2380 ml Height & Weight Height: '" Weight: lbs. oz. kg; 49.21 BMI Method: General Appearance: Other (intubated and sedated) HEENT: PERRL/EOMI, Moist Mucous Membranes Neck: Normal Inspection, Supple Respiratory: Lungs Clear, Normal Breath Sounds, Decreased Breath Sounds, Other (intubated) Cardiovascular: Regular Rate, Rhythm, No Murmur, Normal Peripheral Pulses Capillary Refill: Less Than 3 Seconds Gastrointestinal: normal bowel sounds, non tender, soft Extremity: Normal Capillary Refill, Pedal Edema (1+ pitting edema to knee bilaterally), Other (no bowel sounds but not distended) Neurologic/Psychiatric: Other (intubated and sedated) Skin: Normal Color, Warm/Dry Results Lab Laboratory Tests 03/20/22 04:00 03/21/22 04:20 Assessment/Plan Assessment/Plan Has not been doing well on SBT, will hold continue cardiology meds for CAD/stents COPD, keep on current meds-albuterol CHF continue Lasix, BP meds will get KUB to looks for reason for absent BS Critical Care: Ventilator Management Time spent with patient (mins): 20 CLAUDIO PAYNE MD Mar 21, 2022 08:03
[2022-03-21] MEDS: CLOPIDOGREL 75 MG (PLAVIX) TABLET PO SCH (08:37)
[2022-03-21] MEDS: PANTOPRAZOLE 40 MG (PROTONIX) VIAL IV SCH (08:37)
[2022-03-21] MEDS: LACRI-LUBE OPTHALMIC OINT 3.5 GM TUBE OU SCH ×3 (08:37→20:49)
[2022-03-21] MEDS: ASPIRIN 81 MG CHEW (CHILDREN'S ASA) PO SCH (08:37)
[2022-03-21] MEDS: ENALAPRILAT 2.5 MG/2 ML (VASOTEC) VIAL IV SCH ×2 (08:37→20:49)
--- NOTE | 2022-03-21 09:44 | Progress Note - Cardiology ---
Cardiology SOAP Progress Note Subjective: Remains intubated and sedated Objective: I&O/Vital Signs 03/21/22 03/21/22 03/21/22 03/21/22 21:00 21:53 22:00 23:00 Temp 37.1 37.0 36.9 Pulse 63 62 62 61 Resp 26 26 26 26 B/P (MAP) Pulse Ox 95 95 95 95 O2 Delivery Mechanical Ventilator Mechanical Ventilator Mechanical Ventilator O2 Flow Rate 30.00 30.00 30.00 FiO2 30 03/21/22 03/21/22 03/22/22 03/22/22 23:08 23:11 00:00 00:00 Temp 36.9 37.1 Pulse 62 Resp 26 26 B/P (MAP) 130/58 Pulse Ox 95 O2 Delivery Mechanical Ventilator Mechanical Ventilator O2 Flow Rate 30.00 30.00 FiO2 30 03/22/22 03/22/22 03/22/22 03/22/22 00:33 01:00 01:00 01:37 Temp 36.9 Pulse 62 63 62 Resp 26 B/P (MAP) 130/58 Pulse Ox 94 95 O2 Delivery Mechanical Ventilator Mechanical Ventilator O2 Flow Rate 30.00 FiO2 30 03/22/22 03/22/22 03/22/22 03/22/22 01:53 02:00 02:23 02:51 Temp 37.1 Pulse 85 80 80 Resp 25 26 B/P (MAP) 151/61 Pulse Ox 92 93 O2 Delivery Mechanical Ventilator Mechanical Ventilator O2 Flow Rate 50.00 50.00 FiO2 50 03/22/22 03/22/22 03/22/22 03/22/22 02:59 03:00 04:00 04:00 Temp 37.0 36.9 Pulse 78 68 Resp 26 24 26 B/P (MAP) Pulse Ox 93 94 O2 Delivery Mechanical Ventilator Mechanical Ventilator Mechanical Ventilator O2 Flow Rate 50.00 50.00 50.00 FiO2 30 03/22/22 03/22/22 03/22/22 03/22/22 04:32 05:00 05:28 05:28 Temp 36.8 Pulse 68 68 68 Resp 26 B/P (MAP) 151/61 151/61 Pulse Ox 91 93 O2 Delivery Mechanical Ventilator Mechanical Ventilator O2 Flow Rate 50.00 FiO2 50 03/22/22 03/22/22 03/22/22 03/22/22 05:28 06:00 06:38 07:00 Temp 36.6 Pulse 68 63 62 64 Resp 26 26 B/P (MAP) 151/61 Pulse Ox 94 93 O2 Delivery Mechanical Ventilator O2 Flow Rate 50.00 FiO2 40 03/22/22 03/22/22 03/22/22 07:00 07:58 08:00 Temp 36.5 36.5 36.6 Pulse 64 64 Resp 26 26 B/P (MAP) Pulse Ox 92 92 O2 Delivery Mechanical Ventilator Mechanical Ventilator O2 Flow Rate 50.00 50.00 03/22/22 00:00 Intake Total 1040 ml Output Total 1350 ml Balance -310 ml Constitutional: other (Intubated, on mech vent, non-communicative) Respiratory: other (Intubated, on mech vent, non-communicative) Cardiovascular: regular rate-rhythm Gastrointestional: soft, round, audible bowel sounds Extremities: no lower extremity edema bilateral Neurologic/Psychiatric: other (moves all limbs equally) Skin: No rash on exposed areas, No ulcerations on exposed areas Results/Procedures: Labs Laboratory Tests 03/21/22 11:43: Glucometer 121H 03/21/22 17:42: Glucometer 110 03/21/22 23:07: Glucometer 127H 03/22/22 04:05: White Blood Count 8.6, Red Blood Count 3.80L, Hemoglobin 12.3L, Hematocrit 37L, Mean Corpuscular Volume 96, Mean Corpuscular Hemoglobin 32, Mean Corpuscular Hemoglobin Concent 34, Red Cell Distribution Width 15.2H, Platelet Count 388, Mean Platelet Volume 9.8, Immature Granulocyte % (Auto) 1, Neutrophils (%) (A uto) 61, Lymphocytes (%) (Auto) 24, Monocytes (%) (Auto) 13H, Eosinophils (%) (Auto) 1, Basophils (%) (Auto) 1, Neutrophils # (Auto) 5.2, Lymphocytes # (Auto) 2.0, Monocytes # (Auto) 1.1H, Eosinophils # (Auto) 0.1, Basophils # (Auto) 0.1, Immature Granulocyte # (Auto) 0.1, Blood Gas Puncture Site L RAD, Blood Gas Patient Temperature 36.9, Arterial Blood pH 7.40, Arterial Blood Partial Pressure CO2 47H, Arterial Blood Partial Pressure O2 59L, Arterial Blood HCO3 29H, Arterial Blood Total CO2 30.1, Arterial Blood Oxygen Saturation 89L, Arterial Blood Base Excess 4.1H, Johnathon Test YES-POS, Blood Gas Ventilator Setting YES, Blood Gas Inspired Oxygen 50%, Sodium Level 144, Potassium Level 3.3L, Chloride Level 106, Carbon Dioxide Level 23, Anion Gap 15H, Blood Urea Nitrogen 31H, Creatinine 1.01, Estimat Glomerular Filtration Rate 85, BUN/Creatinine Ratio 31, Glucose Level 143H, Calcium Level 8.9, Phosphorus Level 4.3, Magnesium Level 2.1, Triglycerides Level 182H Microbiology 03/13/22 MRSA Screen - Final, Complete MRSA not isolated 03/12/22 Blood Culture - Final, Complete No growth A/P: Assessment: Acute and prolonged resp failure requiring continuing mech vent - extubated on 03/17/22 and reintubated the same day Ac systolic CHF - echo on 03/12/22: LVEF 35-40%, mod diffuse hypokinesis of LV Minimal troponin elevation - Type 2 [place] d/t hypoxia and transient hypotension CAD with stents x 2 - Family at the bedside reports he had stents done at [facility] in [place], [place] in Nov 2021 at which time he had an [place] COPD per ED documentation - acute on chronic exacerbation Documented h/o HTN Renal insufficiency - undetermined length of time, likely chronic DM per ED documentation HLD per ED documentation Probable NATALIE - advise out pt w/u if this has not already been determined Morbid obesity - BMI approx 50 Plan: * continue diuretics * Continue iv enalaprilat and beta-mj as tolerated by bp * Continue DAPT d/t CAD and family report of recent stent placement in [place] in November 2021 * Consider spironolactone and SGLT2-inhib when able to take oral meds * Sleep studies when able to * Continue DVT prophylaxis * Monitor labs closely * Consider transfer to a tertiary care facility due to continuing resp failure and mech vent FREDDY ERICKSON Mar 21, 2022 09:44
[2022-03-21] MEDS: fentaNYL DRIP PRE-MIX 250 ML IV SCH ×2 (09:54→20:04)
[2022-03-21 10:30] VITALS: BP 115/45
[2022-03-21] MEDS: ENOXAPARIN 40 MG/0.4 ML (LOVENOX) SYR SQ SCH ×2 (11:19→23:08)
--- NOTE | 2022-03-21 12:03 | Progress Note - Hospitalist ---
DOMINIK RICE MED STUDENT 03/21/22 1203: Subjective HPI/CC On Admission Date Seen by Provider: Mar 21, 2022 Time Seen by Provider: 08:30 Patient is a 61-year-old -[place] male with past medical history of coronary artery disease, hypertension, hyperlipidemia,, COPD who presented to the emergency department due to hypoxia and chest pain. He was seen at the walk-in clinic at [facility] and complained of chest pain to them and he was referred to the emergency department. He has been seen in the ER multiple times in the past week or so but has declined most work-up at those visits. This visit he did allow for labs and x-ray which revealed an NSTEMI. He was admitted for further management. Unfortunately overnight his respiratory status worsened and he required intubation. He is unable to provide me any history due to this and thus all history was obtained from the records. Subjective/Events-last exam Pt being seen in f/u for acute respiratory failure and CHF. Pt remains intubated and sedated. No sedation vacation performed this morning. Pt's vent settings have decreased to 35% O2 and PEEP of 8 with oxygen saturations in the mid-90s. Objective Exam Vital Signs Vital Signs Date Time Temp Pulse Resp B/P (MAP) Pulse Ox O2 Delivery O2 Flow Rate FiO2 03/21/22 11:19 65 119/47 03/21/22 10:10 35 03/21/22 09:00 36.8 26 93 Mechanical Ventilator 35.00 Capillary Refill : Less Than 3 Seconds General Appearance: Obese, Other (intubated and sedated) HEENT: Moist Mucous Membranes Neck: Normal Inspection Respiratory: Chest Non Tender, Lungs Clear, Normal Breath Sounds Cardiovascular: Regular Rate, Rhythm, No Murmur Gastrointestinal: Soft, Abnormal Bowel Sounds (no bowel sounds) Extremity: Pedal Edema (mild non pitting edema) Neurologic/Psychiatric: Other (intubated and sedated) Skin: Normal Color, Warm/Dry Results/Procedures Lab Laboratory Tests 03/21/22 04:20 Patient resulted labs reviewed. Imaging: Reviewed Imaging Report Assessment/Plan Assessment and Plan Assess & Plan/Chief Complaint Acute hypercapnic and hypoxic respiratory failure CHF Ileus COPD with lower respiratory tract infection Sepsis NSTEMI CAD HTN HLD DMII Acute hypercapnic and hypoxic respiratory failure -Intubated and sedated since 03/12, decreasing oxygen requirement currently 35% O2 and PEEP of 8.0 -Tele ICU recommended against spontaneous breathing trial today, we will re- evaluate this tomorrow as pt's respiratory status is improving -Extubated 03/17 for one hour with re-intubation after hypoxia -Continue with sedation vacations -Tube feeds stopped d/t increasing residual volume and no bowel sounds auscultated CHF -Lasix 80mg BID IV -Stop metolazone -Good urine output yesterday of 3155mls -Strict I/O Ileus -Will consult general surgery, appreciate their recs -Portable KUB unable to be done d/t pt's size, CT was recommended, will await general surgery recommendations COPD with lower respiratory tract infection Sepsis -Cefepime finished on 03/16 -Off levophed NSTEMI -Cardiology consulted -Possible plan for sleep study? -Aspirin and plavix -BB and joshua-inhibitor as tolerated -Echo showed EF of 35% DMII -SSI CAD HTN HLD Disposition: Will continue to monitor respiratory status and hopefully do spontaneous breathing trial tomorrow. Stopped metolazone as pt had great urine output yesterday. Will continue to monitor closely. Ethics consult revealed pt's current is DPOA and medical decision maker. Will keep in touch with her as well as the daughter and ex about pt's current status. dining services manager is also involved, appreciate their assistance. DVT ppx: lovenox GI ppx: Protonix Code Status: Full Code Diagnosis/Problems Diagnosis/Problems (1) COPD (chronic obstructive pulmonary disease) Status: Acute Qualifiers: Qualified Codes: J44.0 - Chronic obstructive pulmonary disease with (acute) lower respiratory infection (2) Acute respiratory failure Status: Acute Qualifiers: Qualified Codes: J96.01 - Acute respiratory failure with hypoxia; J96.02 - Acute respiratory failure with hypercapnia (3) Morbid obesity Status: Chronic (4) NSTEMI (non-ST elevation myocardial infarction) Status: Acute (5) Acute HFrEF (heart failure with reduced ejection fraction) Status: Acute (6) CAD (coronary artery disease) Qualifiers: Qualified Codes: I25.10 - Atherosclerotic heart disease of [place] coronary artery without angina pectoris MIRACLE MOLINA MD 03/21/22 1632: Subjective HPI/CC On Admission Time Seen by Provider: 10:00 Assessment/Plan Assessment and Plan Assess & Plan/Chief Complaint Diuresing well. FiO2 decreased. Decreasing PEEP today. Scale back on diuretics. Hopeful for extubation in the next 1-2 days. TeleICU assistance appreciated with these efforts. Progress and plan discussed with Rona via telephone. Critical Care: Critically Ill Patient Diagnosis/Problems Diagnosis/Problems (1) Acute respiratory failure Status: Acute Qualifiers: Qualified Codes: J96.01 - Acute respiratory failure with hypoxia; J96.02 - Acute respiratory failure with hypercapnia (2) Acute HFrEF (heart failure with reduced ejection fraction) Status: Acute (3) COPD (chronic obstructive pulmonary disease) Status: Acute Qualifiers: Qualified Codes: J44.0 - Chronic obstructive pulmonary disease with (acute) lower respiratory infection (4) Morbid obesity Status: Chronic (5) NSTEMI (non-ST elevation myocardial infarction) Status: Acute (6) CAD (coronary artery disease) Qualifiers: Qualified Codes: I25.10 - Atherosclerotic heart disease of [place] coronary artery without angina pectoris Supervisory-Addendum Brief Verification & Attestation Participated in pt care: history, MDM, physical Personally performed: exam, history, MDM, supervision of care Care discussed with: Medical Student Procedures: n/a Results interpretation: Verified all documentation A medical student performed and documented this service in my presence. I reviewed and verified all information documented by the medical student and made modifications to such information, when appropriate. I personally performed the physical exam and medical decision making. DOMINIK RICE MED STUDENT Mar 21, 2022 12:03 MIRACLE MOLINA MD Mar 21, 2022 16:32
[2022-03-21 14:30] VITALS: BP 115/45
--- NOTE | 2022-03-21 15:35 | Progress Note - Cardiology ---
Cardiology SOAP Progress Note Subjective: Remains intubated and on mech vent Remains non-communicative Objective: I&O/Vital Signs 03/21/22 03/21/22 03/21/22 03/21/22 03:45 03:45 04:00 04:17 Temp 37.0 Pulse 65 Resp 26 B/P (MAP) 115/50 Pulse Ox 95 97 O2 Delivery Mechanical Ventilator Mechanical Ventilator O2 Flow Rate 50.00 FiO2 50 60 03/21/22 03/21/22 03/21/22 03/21/22 05:00 06:00 06:17 06:36 Temp 36.8 36.7 Pulse 65 Resp 26 26 26 B/P (MAP) 115/50 Pulse Ox 99 99 O2 Delivery Mechanical Ventilator Mechanical Ventilator Mechanical Ventilator O2 Flow Rate 50.00 50.00 40.00 03/21/22 03/21/22 03/21/22 03/21/22 07:00 07:00 07:09 07:48 Temp 36.7 Pulse 61 62 Resp 26 B/P (MAP) 107/55 Pulse Ox 98 O2 Delivery Mechanical Ventilator Mechanical Ventilator O2 Flow Rate 35.00 35.00 03/21/22 03/21/22 03/21/22 03/21/22 07:57 08:00 08:00 08:00 Temp 36.7 Pulse 62 Resp 26 B/P (MAP) 107/55 Pulse Ox 97 97 O2 Delivery Mechanical Ventilator Mechanical Ventilator O2 Flow Rate 35.00 FiO2 35 35 03/21/22 03/21/22 03/21/22 03/21/22 08:00 09:00 09:54 10:00 Temp 36.7 36.8 36.6 Pulse 61 Resp 26 26 B/P (MAP) 92/39 Pulse Ox 93 93 O2 Delivery Mechanical Ventilator Mechanical Ventilator O2 Flow Rate 35.00 35.00 03/21/22 03/21/22 03/21/22 03/21/22 10:10 11:00 11:19 12:00 Temp 36.7 Pulse 65 Resp 26 B/P (MAP) 119/47 Pulse Ox 96 97 O2 Delivery Mechanical Ventilator Mechanical Ventilator O2 Flow Rate 35.00 FiO2 35 35 03/21/22 03/21/22 03/21/22 03/21/22 12:00 12:00 12:10 12:14 Temp 36.7 36.8 Pulse 70 Resp 67 B/P (MAP) Pulse Ox 95 O2 Delivery Mechanical Ventilator O2 Flow Rate 35.00 FiO2 35 03/21/22 03/21/22 03/21/22 13:00 13:42 15:05 Temp 36.7 36.2 Pulse 66 Resp 84 B/P (MAP) 139/53 Pulse Ox 96 O2 Delivery Mechanical Ventilator O2 Flow Rate 35.00 03/21/22 00:00 Intake Total 980 ml Output Total 2575 ml Balance -1595 ml Constitutional: other (Intubated, on mech vent, non-communicative) Respiratory: other (Intubated, on mech vent, non-communicative) Cardiovascular: regular rate-rhythm Gastrointestional: soft, round, audible bowel sounds Extremities: no lower extremity edema bilateral Neurologic/Psychiatric: other (moves all limbs equally) Skin: No rash on exposed areas, No ulcerations on exposed areas Results/Procedures: Labs Laboratory Tests 03/20/22 18:43: Glucometer 124H 03/20/22 23:25: Glucometer 108 03/21/22 04:20: White Blood Count 7.3, Red Blood Count 3.85L, Hemoglobin 12.3L, Hematocrit 37L, Mean Corpuscular Volume 97, Mean Corpuscular Hemoglobin 32, Mean Corpuscular Hemoglobin Concent 33, Red Cell Distribution Width 15.4H, Platelet Count 351, Mean Platelet Volume 9.5, Immature Granulocyte % (Auto) 1, Neutrophils (%) (Auto) 60, Lymphocytes (%) (Auto) 26, Monocytes (%) (Auto) 12, Eosinophils (%) (Auto) 1, Basophils (%) (Auto) 1, Neutrophils # (Auto) 4.4, Lymphocytes # (Auto) 1.9, Monocytes # (Auto) 0.9, Eosinophils # (Auto) 0.1, Basophils # (Auto) 0.0, Immature Granulocyte # (Auto) 0.1, Blood Gas Puncture Site LRAD, Blood Gas Patient Temperature 36.8, Arterial Blood pH 7.40, Arterial Blood Partial Pressure CO2 49H, Arterial Blood Partial Pressure O2 61L, Arterial Blood HCO3 30H, Arterial Blood Total CO2 31.4H, Arterial Blood Oxygen Saturation 91L, Arterial Blood Base Excess 5.3H, Johnathon Test ART LINE, Blood Gas Ventilator Setting YES, Blood Gas Inspired Oxygen 50%, Sodium Level 142, Potassium Level 3.6, Chloride Level 105, Carbon Dioxide Level 26, Anion Gap 11, Blood Urea Nitrogen 25H, Creatinine 1.13, Estimat Glomerular Filtration Rate 74, BUN/Creatinine Ratio 22, Glucose Level 136H, Calcium Level 8.8, Phosphorus Level 4.0, Magnesium Level 1.7, Triglycerides Level 189H 03/21/22 11:43: Glucometer 121H Microbiology 03/13/22 MRSA Screen - Final, Complete MRSA not isolated 03/12/22 Blood Culture - Final, Complete No growth Laboratory Tests 03/20/22 04:00 03/21/22 04:20 A/P: Assessment: Acute and prolonged resp failure requiring continuing mech vent - extubated on 03/17/22 and reintubated the same day Ac systolic CHF - echo on 03/12/22: LVEF 35-40%, mod diffuse hypokinesis of LV Minimal troponin elevation - Type 2 [place] d/t hypoxia and transient hypotension CAD with stents x 2 - Family at the bedside reports he had stents done at [facility] in [place], [place] in Nov 2021 at which time he had an [place] COPD per ED documentation - acute on chronic exacerbation Documented h/o HTN Renal insufficiency - undetermined length of time, likely chronic DM per ED documentation HLD per ED documentation Probable NATALIE - advise out pt w/u if this has not already been determined Morbid obesity - BMI approx 50 Plan: * continue diuretics * Continue iv enalaprilat and beta-mj as tolerated by bp * Continue DAPT d/t CAD and family report of recent stent placement in [place] in November 2021 * Consider spironolactone and SGLT2-inhib when able to take oral meds * Sleep studies when able to * Continue DVT prophylaxis * Monitor labs closely * Consider transfer to a tertiary care facility due to continuing resp failure and mech vent NERISSA GARCIA MD FACP [facility] Mar 21, 2022 15:34
[2022-03-21 18:47] VITALS: BP 128/49
[2022-03-21] MEDS: FLEET ENEMA ADULT 1 EA BTL PR SCH (20:49)
[2022-03-21 21:53] VITALS: BP 130/58
[2022-03-21] MEDS: NS IV 1000 ML 1,000 ML IV SCH (22:35)
[2022-03-21] MEDS: METOCLOPRAMIDE INJ 10 MG/2 ML (REGLAN) IVP SCH (23:08)
--- NOTE | 2022-03-22 00:09 | CONSULTATION REPORT ---
DATE OF SERVICE: 03/21/2022 ADMITTING PHYSICIAN: Dr. Walker. HISTORY OF PRESENT ILLNESS: The patient is a 61-year-old male with extensive past medical history including coronary artery disease, hypertension, hyperlipidemia, COPD as well as morbid obesity. He initially went to the walk-in clinic at [facility] of chest pain and then was sent to the Emergency Department. He underwent workup, which did reveal a non-ST segment elevation myocardial infarction. He was admitted; however, he developed respiratory failure requiring intubation. Since that time, his respiratory status has been poor and attempts at weaning the vent have been unsuccessful so far. The patient is morbidly obese with a very large body habitus and exceeds the weight requirement for x-ray. We were consulted for mild abdominal distention and lack of BM since admission. Upon examination, his abdomen is soft, slightly distended. There are no hernias. There are no peritoneal signs. In lieu of his recent events as well as being on a ventilator, this most likely represents constipation as well as a possible ileus. PAST MEDICAL HISTORY: Hypertension, hypercholesterolemia, COPD, coronary artery disease, morbid obesity. PAST SURGICAL HISTORY: Unknown. ALLERGIES: CODEINE, HALOPERIDOL, IODINE, MORPHINE, PREGABALIN, SIMVASTATIN, CORTICOSTEROIDS. MEDICATIONS: Albuterol breathing treatment q.2 hours p.r.n., alprazolam 1 mg q.8 hours p.r.n., aspirin 81 mg daily, Plavix 75 mg daily. SOCIAL HISTORY: Previous smoke and alcohol. FAMILY HISTORY: Noncontributory. REVIEW OF SYSTEMS: This is an obese male, on the ventilator and sedated. He has a mildly distended abdomen and has a very large body habitus and is morbidly obese. His abdomen is soft. There are no palpable masses and no hernias. He also does have bowel sounds. No known previous issues with heartburn or peptic ulcer disease, unknown history of constipation in the past. He has not had a bowel movement since admission. No fever or chills. No recent inadvertent weight loss. All other review of systems are negative. PHYSICAL EXAMINATION: VITAL SIGNS: Temperature is 36.9, blood pressure 130/58, pulse 62, respirations 26 on mechanical ventilator at 30% FiO2. CHEST: Coarse breath sounds bilaterally. HEART: Regular, no murmurs. EXTREMITIES: +1/3 bilateral lower extremity edema. Negative Homans sign. HEENT: No scleral icterus. No cervical lymphadenopathy. ABDOMEN: Slightly distended, soft, does not elicit any abdominal pain upon palpation. No hernias. No peritoneal signs. SKIN: Warm, dry. LABORATORY DATA: WBC 7.3, hemoglobin 12.3, hematocrit 37, platelets 351, BUN 25, creatinine 1.13. ASSESSMENT AND PLAN: A 61-year-old male with non-ST segment elevation myocardial infarction and respiratory failure requiring intubation and mechanical ventilation. He has not had a bowel movement since admission, likely secondary to the events that occurred as well as medications that he is on. He has likely developed constipation as well as ileus. We will empirically start him on Reglan 5 mg q.6 hours as well as Fleets Enema until he does have a significant bowel movement. Job ID: [id number] DocumentID: [id number] Dictated Date: 03/21/2022 23:45:02 Community Midwife Date: 03/22/2022 00:07:00 Dictated By: ANALIA SALAZAR MD
[2022-03-22] MEDS: DexMEDEtomidine 250 ML DRIP 250 ML IV SCH ×4 (01:37→20:19)
[2022-03-22 02:23] VITALS: BP 151/61
[2022-03-22] MEDS: RT-ALBUTEROL/IPRATROPIUM 3 ML (DUONEB) VIAL INH SCH ×5 (02:23→22:15)
[2022-03-22] MEDS: PROPOFOL DRIP (ICU) 100 ML IV SCH ×4 (02:51→12:47)
[2022-03-22 04:19] LABS: ABG BASE EXCESS 4.1 MMOL/L (-2.5-2.5); ABG OXYGEN SATURATION 89 % (94-100); ABG PCO2 47 MMHG (35-45); ABG PO2 59 MMHG (79-93); ABG TCO2 30.1 MMOL/L (21.0-31.0)
[2022-03-22 04:20] LABS: ALLENS TEST YES-POS; INSPIRED O2 50%; PATIENT TEMP 36.9; VENTILATOR YES
[2022-03-22 04:30] LABS: BASOPHILS # (AUTO) 0.1 10^3/uL (0.0-0.1); BASOPHILS % (AUTO) 1 % (0-10); EOSINOPHILS # (AUTO) 0.1 10^3/uL (0.0-0.3); EOSINOPHILS % (AUTO) 1 % (0-10); HEMATOCRIT 37 % (40-54); HEMOGLOBIN 12.3 g/dL (13.3-17.7); LYMPHOCYTES % (AUTO) 24 % (12-44); MEAN CORPUSCULAR HEMOGLOBIN 32 pg (25-34); MEAN CORPUSCULAR HGB CONC 34 g/dL (32-36); MEAN CORPUSCULAR VOLUME 96 fL (80-99); MEAN PLATELET VOLUME 9.8 fL (9.0-12.2); MONOCYTES # (AUTO) 1.1 10^3/uL (0.0-1.0); MONOCYTES % (AUTO) 13 % (0-12); NEUTROPHILS # (AUTO) 5.2 10^3/uL (1.8-7.8); NEUTROPHILS % (AUTO) 61 % (42-75); PLATELET COUNT 388 10^3/uL (130-400); WHITE BLOOD COUNT 8.6 10^3/uL (4.3-11.0)
[2022-03-22 04:40] LABS: CALCIUM 8.9 MG/DL (8.5-10.1); CREATININE SERUM 1.01 MG/DL (0.60-1.30); MAGNESIUM 2.1 MG/DL (1.6-2.4); PHOSPHORUS 4.3 MG/DL (2.3-4.7); POTASSIUM 3.3 MMOL/L (3.6-5.0)
[2022-03-22] MEDS: POTASSIUM CL 10MEQ/50ML IVPB 50 ML IV SCH ×5 (04:50→07:39)
[2022-03-22] MEDS: MAGNESIUM 1 GM/100 ML IVPB 100 ML IV SCH (04:50)
[2022-03-22] MEDS: KCL 20 MEQ TAB (K-DUR) PO SCH (04:51)
[2022-03-22] MEDS: FLEET ENEMA ADULT 1 EA BTL PR SCH ×3 (05:28→21:18)
[2022-03-22] MEDS: METOCLOPRAMIDE INJ 10 MG/2 ML (REGLAN) IVP SCH ×3 (05:28→17:22)
[2022-03-22] MEDS: fentaNYL DRIP PRE-MIX 250 ML IV SCH (05:28)
[2022-03-22] MEDS: meTOprolol 5 MG/5 ML (LOPRESSOR) VIAL IV SCH ×4 (05:29→22:37)
[2022-03-22 06:38] VITALS: BP 118/56
[2022-03-22] MEDS: LACRI-LUBE OPTHALMIC OINT 3.5 GM TUBE OU SCH ×3 (08:35→20:20)
[2022-03-22] MEDS: ASPIRIN 81 MG CHEW (CHILDREN'S ASA) PO SCH (08:35)
[2022-03-22] MEDS: ENALAPRILAT 2.5 MG/2 ML (VASOTEC) VIAL IV SCH ×2 (08:35→20:21)
[2022-03-22] MEDS: CLOPIDOGREL 75 MG (PLAVIX) TABLET PO SCH (08:35)
[2022-03-22] MEDS: PANTOPRAZOLE 40 MG (PROTONIX) VIAL IV SCH (08:35)
--- NOTE | 2022-03-22 08:38 | Progress Note - Cardiology ---
Cardiology SOAP Progress Note Subjective: Remains intubated and sedated Objective: I&O/Vital Signs 03/22/22 03/22/22 03/22/22 03/22/22 00:33 01:00 01:00 01:37 Temp 36.9 Pulse 62 63 62 Resp 26 B/P (MAP) 130/58 Pulse Ox 94 95 O2 Delivery Mechanical Ventilator Mechanical Ventilator O2 Flow Rate 30.00 FiO2 30 03/22/22 03/22/22 03/22/22 03/22/22 01:53 02:00 02:23 02:51 Temp 37.1 Pulse 85 80 80 Resp 25 26 B/P (MAP) 151/61 Pulse Ox 92 93 O2 Delivery Mechanical Ventilator Mechanical Ventilator O2 Flow Rate 50.00 50.00 FiO2 50 03/22/22 03/22/22 03/22/22 03/22/22 02:59 03:00 04:00 04:00 Temp 37.0 36.9 Pulse 78 68 Resp 26 24 26 B/P (MAP) Pulse Ox 93 94 O2 Delivery Mechanical Ventilator Mechanical Ventilator Mechanical Ventilator O2 Flow Rate 50.00 50.00 50.00 FiO2 30 03/22/22 03/22/22 03/22/22 03/22/22 04:32 05:00 05:28 05:28 Temp 36.8 Pulse 68 68 68 Resp 26 B/P (MAP) 151/61 151/61 Pulse Ox 91 93 O2 Delivery Mechanical Ventilator Mechanical Ventilator O2 Flow Rate 50.00 FiO2 50 03/22/22 03/22/22 03/22/22 03/22/22 05:28 06:00 06:38 07:00 Temp 36.6 Pulse 68 63 62 64 Resp 26 26 B/P (MAP) 151/61 Pulse Ox 94 93 O2 Delivery Mechanical Ventilator O2 Flow Rate 50.00 FiO2 40 03/22/22 03/22/22 03/22/22 03/22/22 07:00 07:58 08:00 08:00 Temp 36.5 36.5 36.6 Pulse 64 64 Resp 26 26 B/P (MAP) Pulse Ox 92 92 O2 Delivery Mechanical Ventilator Mechanical Ventilator O2 Flow Rate 50.00 50.00 FiO2 40 03/22/22 03/22/22 03/22/22 03/22/22 08:00 09:00 09:39 09:42 Temp 36.7 Pulse 70 70 67 Resp 26 B/P (MAP) 133/61 143/64 Pulse Ox 97 94 O2 Delivery Mechanical Ventilator Mechanical Ventilator O2 Flow Rate 50.00 FiO2 40 03/22/22 03/22/22 03/22/22 03/22/22 09:42 09:42 10:00 10:27 Temp 36.7 Pulse 67 67 66 66 Resp 26 26 B/P (MAP) 143/64 143/64 Pulse Ox 94 94 O2 Delivery Mechanical Ventilator O2 Flow Rate 50.00 FiO2 35 03/22/22 03/22/22 03/22/22 03/22/22 10:55 10:56 11:00 11:52 Temp 36.6 36.6 Pulse 67 Resp 27 B/P (MAP) Pulse Ox 94 O2 Delivery Mechanical Ventilator Mechanical Ventilator Mechanical Ventilator O2 Flow Rate 35.00 30.00 30.00 03/21/22 23:59 Intake Total 1040 ml Output Total 1350 ml Balance -310 ml Constitutional: other (Intubated, on mech vent, non-communicative) Respiratory: other (Intubated, on mech vent, non-communicative) Cardiovascular: regular rate-rhythm Gastrointestional: soft, round; No audible bowel sounds Extremities: no lower extremity edema bilateral Neurologic/Psychiatric: other (moves all limbs equally) Skin: No rash on exposed areas, No ulcerations on exposed areas Results/Procedures: Labs Laboratory Tests 03/21/22 17:42: Glucometer 110 03/21/22 23:07: Glucometer 127H 03/22/22 04:05: White Blood Count 8.6, Red Blood Count 3.80L, Hemoglobin 12.3L, Hematocrit 37L, Mean Corpuscular Volume 96, Mean Corpuscular Hemoglobin 32, Mean Corpuscular Hemoglobin Concent 34, Red Cell Distribution Width 15.2H, Platelet Count 388, Me an Platelet Volume 9.8, Immature Granulocyte % (Auto) 1, Neutrophils (%) (Auto) 61, Lymphocytes (%) (Auto) 24, Monocytes (%) (Auto) 13H, Eosinophils (%) (Auto) 1, Basophils (%) (Auto) 1, Neutrophils # (Auto) 5.2, Lymphocytes # (Auto) 2.0, Monocytes # (Auto) 1.1H, Eosinophils # (Auto) 0.1, Basophils # (Auto) 0.1, Immature Granulocyte # (Auto) 0.1, Blood Gas Puncture Site L RAD, Blood Gas Patient Temperature 36.9, Arterial Blood pH 7.40, Arterial Blood Partial Pressure CO2 47H, Arterial Blood Partial Pressure O2 59L, Arterial Blood HCO3 29H, Arterial Blood Total CO2 30.1, Arterial Blood Oxygen Saturation 89L, Arterial Blood Base Excess 4.1H, Johnathon Test YES-POS, Blood Gas Ventilator Setting YES, Blood Gas Inspired Oxygen 50%, Sodium Level 144, Potassium Level 3.3L, Chloride Level 106, Carbon Dioxide Level 23, Anion Gap 15H, Blood Urea Nitrogen 31H, Creatinine 1.01, Estimat Glomerular Filtration Rate 85, BUN/Creatinine Ratio 31, Glucose Level 143H, Calcium Level 8.9, Phosphorus Level 4.3, Magnesium Level 2.1, Triglycerides Level 182H 03/22/22 11:22: Glucometer 126H Microbiology 03/13/22 MRSA Screen - Final, Complete MRSA not isolated 03/12/22 Blood Culture - Final, Complete No growth A/P: Assessment: Acute and prolonged resp failure requiring continuing mech vent - extubated on 03/17/22 and reintubated the same day Ac systolic CHF - echo on 03/12/22: LVEF 35-40%, mod diffuse hypokinesis of LV Minimal troponin elevation - Type 2 CO d/t hypoxia and transient hypotension CAD with stents x 2 - Family at the bedside reports he had stents done at [facility] in [place], [place] in Nov 2021 at which time he had an CO COPD per ED documentation - acute on chronic exacerbation Documented h/o HTN Renal insufficiency - undetermined length of time, likely chronic DM per ED documentation HLD per ED documentation Probable NATALIE - advise out pt w/u if this has not already been determined Morbid obesity - BMI approx 50 ?Ileus - management per surgical services Plan: * continue diuretics * Continue iv enalaprilat and beta-mj as tolerated by bp * Continue DAPT d/t CAD and family report of recent stent placement in [place] in November 2021 * Consider spironolactone and SGLT2-inhib when able to take oral meds * Sleep studies when able to * Continue DVT prophylaxis * Monitor labs closely * ?Ileus - management per medical services * Consider transfer to a tertiary care facility due to continuing resp failure and mech vent FREDDY ERICKSON Mar 22, 2022 08:38
--- NOTE | 2022-03-22 09:23 | Progress Note - Cardiology ---
Cardiology SOAP Progress Note Subjective: On mech vent, unresponsive Objective: I&O/Vital Signs 03/21/22 03/21/22 03/21/22 03/21/22 21:53 22:00 23:00 23:08 Temp 37.0 36.9 Pulse 62 62 61 62 Resp 26 26 26 B/P (MAP) 130/58 Pulse Ox 95 95 95 O2 Delivery Mechanical Ventilator Mechanical Ventilator O2 Flow Rate 30.00 30.00 FiO2 30 03/21/22 03/22/22 03/22/22 03/22/22 23:11 00:00 00:00 00:33 Temp 36.9 37.1 Resp 26 26 B/P (MAP) Pulse Ox 95 94 O2 Delivery Mechanical Ventilator Mechanical Ventilator Mechanical Ventilator O2 Flow Rate 30.00 30.00 FiO2 30 30 03/22/22 03/22/22 03/22/22 03/22/22 01:00 01:00 01:37 01:53 Temp 36.9 Pulse 62 63 62 Resp 26 B/P (MAP) 130/58 Pulse Ox 95 O2 Delivery Mechanical Ventilator Mechanical Ventilator O2 Flow Rate 30.00 50.00 03/22/22 03/22/22 03/22/22 03/22/22 02:00 02:23 02:51 02:59 Temp 37.1 Pulse 85 80 80 Resp 25 26 26 B/P (MAP) 151/61 Pulse Ox 92 93 O2 Delivery Mechanical Ventilator Mechanical Ventilator O2 Flow Rate 50.00 50.00 FiO2 50 03/22/22 03/22/22 03/22/22 03/22/22 03:00 04:00 04:00 04:32 Temp 37.0 36.9 Pulse 78 68 Resp 24 26 B/P (MAP) Pulse Ox 93 94 91 O2 Delivery Mechanical Ventilator Mechanical Ventilator Mechanical Ventilator O2 Flow Rate 50.00 50.00 FiO2 30 50 03/22/22 03/22/22 03/22/22 03/22/22 05:00 05:28 05:28 05:28 Temp 36.8 Pulse 68 68 68 68 Resp 26 B/P (MAP) 151/61 151/61 151/61 Pulse Ox 93 O2 Delivery Mechanical Ventilator O2 Flow Rate 50.00 03/22/22 03/22/22 03/22/22 03/22/22 06:00 06:38 07:00 07:00 Temp 36.6 36.5 Pulse 63 62 64 64 Resp 26 26 26 B/P (MAP) Pulse Ox 94 93 92 O2 Delivery Mechanical Ventilator Mechanical Ventilator O2 Flow Rate 50.00 50.00 FiO2 40 03/22/22 03/22/22 03/22/22 03/22/22 07:58 08:00 08:00 08:00 Temp 36.5 36.6 Pulse 64 Resp 26 B/P (MAP) Pulse Ox 92 97 O2 Delivery Mechanical Ventilator Mechanical Ventilator O2 Flow Rate 50.00 FiO2 40 40 03/22/22 00:00 Intake Total 1040 ml Output Total 1350 ml Balance -310 ml Constitutional: other (Intubated, on mech vent, non-communicative) Respiratory: other (Intubated, on mech vent, non-communicative) Cardiovascular: regular rate-rhythm Gastrointestional: soft, round; No audible bowel sounds Extremities: no lower extremity edema bilateral Neurologic/Psychiatric: other (moves all limbs equally) Skin: No rash on exposed areas, No ulcerations on exposed areas Results/Procedures: Labs Laboratory Tests 03/21/22 11:43: Glucometer 121H 03/21/22 17:42: Glucometer 110 03/21/22 23:07: Glucometer 127H 03/22/22 04:05: White Blood Count 8.6, Red Blood Count 3.80L, Hemoglobin 12.3L, Hematocrit 37L, Mean Corpuscular Volume 96, Mean Corpuscular Hemoglobin 32, Mean Corpuscular Hemoglobin Concent 34, Red Cell Distribution Width 15.2H, Platelet Count 388, Mean Platelet Volume 9.8, Immature Granulocyte % (Auto) 1, Neutrophils (%) (Auto) 61, Lymphocytes (%) (Auto) 24, Monocytes (%) (Auto) 13H, Eosinophils (%) (Auto) 1, Basophils (%) (Auto) 1, Neutrophils # (Auto) 5.2, Lymphocytes # (Auto) 2.0, Monocytes # (Auto) 1.1H, Eosinophils # (Auto) 0.1, Basophils # (Auto) 0.1, Immature Granulocyte # (Auto) 0.1, Blood Gas Puncture Site L RAD, Blood Gas Patient Temperature 36.9, Arterial Blood pH 7.40, Arterial Blood Partial Pressure CO2 47H, Arterial Blood Partial Pressure O2 59L, Arterial Blood HCO3 29H, Arterial Blood Total CO2 30.1, Arterial Blood Oxygen Saturation 89L, Arterial Blood Base Excess 4.1H, Johnathon Test YES-POS, Blood Gas Ventilator Set ting YES, Blood Gas Inspired Oxygen 50%, Sodium Level 144, Potassium Level 3.3L, Chloride Level 106, Carbon Dioxide Level 23, Anion Gap 15H, Blood Urea Nitrogen 31H, Creatinine 1.01, Estimat Glomerular Filtration Rate 85, BUN/Creatinine Ratio 31, Glucose Level 143H, Calcium Level 8.9, Phosphorus Level 4.3, Magnesium Level 2.1, Triglycerides Level 182H Microbiology 03/13/22 MRSA Screen - Final, Complete MRSA not isolated 03/12/22 Blood Culture - Final, Complete No growth Laboratory Tests 03/21/22 04:20 03/22/22 04:05 A/P: Assessment: Acute and prolonged resp failure requiring continuing mech vent - extubated on 03/17/22 and reintubated the same day Ac systolic CHF - echo on 03/12/22: LVEF 35-40%, mod diffuse hypokinesis of LV Minimal troponin elevation - Type 2 WI d/t hypoxia and transient hypotension CAD with stents x 2 - Family at the bedside reports he had stents done at [facility] in [place], [place] in Nov 2021 at which time he had an WI COPD per ED documentation - acute on chronic exacerbation Documented h/o HTN Renal insufficiency - undetermined length of time, likely chronic DM per ED documentation HLD per ED documentation Probable NATALIE - advise out pt w/u if this has not already been determined Morbid obesity - BMI approx 50 ?Ileus - management per surgical services Plan: * continue diuretics * Continue iv enalaprilat and beta-mj as tolerated by bp * Continue DAPT d/t CAD and family report of recent stent placement in [place] in November 2021 * Consider spironolactone and SGLT2-inhib when able to take oral meds * Sleep studies when able to * Continue DVT prophylaxis * Monitor labs closely * ?Ileus - management per medical services * Consider transfer to a tertiary care facility due to continuing resp failure and mech vent NERISSA GARCIA MD FACP [facility] Mar 22, 2022 09:22
--- NOTE | 2022-03-22 09:55 | Tele-ICU Progress Note ---
Subjective Date Seen by a Provider: Mar 22, 2022 Subjective/Events-last exam This virtual visit was conducted using real time audio/video. Thank you for asking us to see this patient for respiratory insufficiency due to AECOPD/CHF, sepsis. Intub 03:15 03/12/2022. Possible NATALIE/OHS. PMH: COPD, htn, DM2, EF 35-40%, CAD/stents, HL, CRI. PE: VSS. Sedated on vent. O2 sat 92% on AC 26/500/40%/+6. HEENT: No obvious masses, adenopathy or JVD. Chest: Diminished on auscultation. CV: RRR S1 S2 No murmur or added sounds. Abd: Non-tender. Bowel sounds Y. : Unremarkable. Jenkins Y. 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 No obvious focal findings. Extremities: 1+ edema. Capillary refill < 3 seconds. Skin: unremarkable. Results: Elevated BG 143. Decreased Hb 12.3. B.4/47/59 on 40%/+6. CXR: R basal infilt, hyperinflation.. Available chart/ vitals / labs / images reviewed. Video assessment done using teleICU camera, rest of exam as per RN. A/P: Respiratory insufficiency: Continue present management with vent, Duon., Prec., Prop., fent. No SBT w hypoxia, consider trach/PEG Monitor for increasing oxygenation needs. Critical Care: critically ill patient. Cont. Lasix, Pepcid, ASA, Bertrand., metop., Plavix, reglan, vasotec, PPI Discussed with RN MIKHAIL. Asked RN to reach out to eICU if any questions or concerns later. Time spent with patient/coordination of care with other health professionals (mins): 21 Sepsis Event Evaluation Height, Weight, BMI Height: '" Weight: lbs. oz. kg; 49.29 BMI Method: Exam Exam Patient acknowledged, consented, and participated in this virtual visit which was conducted using real time audio/video Vital Signs Date Time Temp Pulse Resp B/P (MAP) Pulse Ox O2 Delivery O2 Flow Rate FiO2 03/22/22 09:42 67 143/64 03/22/22 09:42 67 143/64 03/22/22 09:42 67 143/64 03/22/22 09:39 70 133/61 03/22/22 09:00 36.7 70 26 94 Mechanical Ventilator 50.00 03/22/22 08:00 97 Mechanical Ventilator 40 03/22/22 08:00 40 03/22/22 08:00 36.6 64 26 92 Mechanical Ventilator 50.00 03/22/22 07:58 36.5 03/22/22 07:00 36.5 64 26 92 Mechanical Ventilator 50.00 03/22/22 07:00 64 03/22/22 06:38 62 26 93 40 03/22/22 06:00 36.6 63 26 94 Mechanical Ventilator 50.00 03/22/22 05:28 68 151/61 03/22/22 05:28 68 151/61 03/22/22 05:28 68 151/61 03/22/22 05:00 36.8 68 26 93 Mechanical Ventilator 50.00 03/22/22 04:32 91 Mechanical Ventilator 50 03/22/22 04:00 36.9 68 26 94 Mechanical Ventilator 50.00 03/22/22 04:00 30 03/22/22 03:00 37.0 78 24 93 Mechanical Ventilator 50.00 03/22/22 02:59 26 Mechanical Ventilator 50.00 03/22/22 02:51 80 151/61 03/22/22 02:23 80 26 93 50 03/22/22 02:00 37.1 85 25 92 Mechanical Ventilator 50.00 03/22/22 01:53 Mechanical Ventilator 50.00 03/22/22 01:37 62 130/58 03/22/22 01:00 36.9 63 26 95 Mechanical Ventilator 30.00 03/22/22 01:00 62 03/22/22 00:33 94 Mechanical Ventilator 30 03/22/22 00:00 37.1 26 95 Mechanical Ventilator 30.00 03/22/22 00:00 30 03/21/22 23:11 36.9 26 Mechanical Ventilator 30.00 03/21/22 23:08 62 130/58 03/21/22 23:00 36.9 61 26 95 Mechanical Ventilator 30.00 03/21/22 22:00 37.0 62 26 95 Mechanical Ventilator 30.00 03/21/22 21:53 62 26 95 30 03/21/22 21:00 37.1 63 26 95 Mechanical Ventilator 30.00 03/21/22 20:04 63 128/49 03/21/22 20:04 63 128/49 03/21/22 20:00 95 Mechanical Ventilator 30 03/21/22 20:00 37.1 64 26 94 Mechanical Ventilator 30.00 03/21/22 20:00 30 03/21/22 19:41 37.1 03/21/22 19:37 63 128/49 03/21/22 19:37 37.1 26 Mechanical Ventilator 30.00 03/21/22 19:00 64 03/21/22 19:00 37.1 65 26 95 Mechanical Ventilator 30.00 03/21/22 18:47 63 26 95 30 03/21/22 18:00 37.1 26 95 Mechanical Ventilator 30.00 03/21/22 17:00 37.0 26 95 Mechanical Ventilator 30.00 03/21/22 16:03 65 123/46 03/21/22 16:00 30 03/21/22 16:00 96 Mechanical Ventilator 30 03/21/22 16:00 36.9 26 95 Mechanical Ventilator 30.00 03/21/22 15:05 36.2 03/21/22 15:00 37.0 26 96 Mechanical Ventilator 30.00 03/21/22 14:30 64 26 96 30 03/21/22 14:30 30 03/21/22 14:00 36.9 94 Mechanical Ventilator 35.00 03/21/22 13:42 66 139/53 03/21/22 13:00 36.7 84 96 Mechanical Ventilator 35.00 03/21/22 12:14 70 03/21/22 12:10 35 03/21/22 12:00 36.8 67 95 Mechanical Ventilator 35.00 03/21/22 12:00 36.7 03/21/22 12:00 97 Mechanical Ventilator 35 03/21/22 11:19 65 119/47 03/21/22 11:00 36.7 26 96 Mechanical Ventilator 35.00 03/21/22 10:30 64 26 96 35 03/21/22 10:10 35 03/21/22 10:00 36.6 26 93 Mechanical Ventilator 35.00 03/21/22 09:54 61 92/39 I & O 03/22/22 07:00 Intake Total 2820 ml Output Total 3375 ml Balance -555 ml Height & Weight Height: '" Weight: lbs. oz. kg; 49.29 BMI Method: General Appearance: Other (intubated and sedated) HEENT: PERRL/EOMI, Moist Mucous Membranes Neck: Normal Inspection, Supple Respiratory: Lungs Clear, Normal Breath Sounds, Decreased Breath Sounds, Other (intubated) Cardiovascular: Regular Rate, Rhythm, No Murmur, Normal Peripheral Pulses Capillary Refill: Less Than 3 Seconds Gastrointestinal: normal bowel sounds, non tender, soft Extremity: Normal Capillary Refill, Pedal Edema (1+ pitting edema to knee bilaterally), Other (no bowel sounds but not distended) Neurologic/Psychiatric: Other (intubated and sedated) Skin: Normal Color, Warm/Dry Results Lab Laboratory Tests 03/21/22 04:20 03/22/22 04:05 Assessment/Plan Assessment/Plan See free text Critical Care: Ventilator Management JAKUB WEISS MD Mar 22, 2022 09:55
[2022-03-22 10:27] VITALS: BP 130/61
[2022-03-22] MEDS: ENOXAPARIN 40 MG/0.4 ML (LOVENOX) SYR SQ SCH ×2 (11:38→22:37)
--- NOTE | 2022-03-22 11:54 | Progress Note ---
Subjective Date Seen by a Provider: Mar 22, 2022 Time Seen by a Provider: 11:00 Subjective/Events-last exam continue to be on vent/sedated. decreased ngt output. abd soft with no illicited tenderness. Objective Exam Vital Signs Date Time Temp Pulse Resp B/P (MAP) Pulse Ox O2 Delivery O2 Flow Rate FiO2 03/22/22 11:00 36.6 67 27 94 Mechanical Ventilator 30.00 03/22/22 10:56 Mechanical Ventilator 30.00 03/22/22 10:55 Mechanical Ventilator 35.00 03/22/22 10:27 66 26 94 35 03/22/22 10:00 36.7 66 26 94 Mechanical Ventilator 50.00 03/22/22 09:42 67 143/64 03/22/22 09:42 67 143/64 03/22/22 09:42 67 143/64 03/22/22 09:39 70 133/61 03/22/22 09:00 36.7 70 26 94 Mechanical Ventilator 50.00 03/22/22 08:00 97 Mechanical Ventilator 40 03/22/22 08:00 40 03/22/22 08:00 36.6 64 26 92 Mechanical Ventilator 50.00 03/22/22 07:58 36.5 03/22/22 07:00 36.5 64 26 92 Mechanical Ventilator 50.00 03/22/22 07:00 64 03/22/22 06:38 62 26 93 40 03/22/22 06:00 36.6 63 26 94 Mechanical Ventilator 50.00 03/22/22 05:28 68 151/61 03/22/22 05:28 68 151/61 03/22/22 05:28 68 151/61 03/22/22 05:00 36.8 68 26 93 Mechanical Ventilator 50.00 03/22/22 04:32 91 Mechanical Ventilator 50 03/22/22 04:00 36.9 68 26 94 Mechanical Ventilator 50.00 03/22/22 04:00 30 03/22/22 03:00 37.0 78 24 93 Mechanical Ventilator 50.00 03/22/22 02:59 26 Mechanical Ventilator 50.00 03/22/22 02:51 80 151/61 03/22/22 02:23 80 26 93 50 03/22/22 02:00 37.1 85 25 92 Mechanical Ventilator 50.00 03/22/22 01:53 Mechanical Ventilator 50.00 03/22/22 01:37 62 130/58 03/22/22 01:00 36.9 63 26 95 Mechanical Ventilator 30.00 03/22/22 01:00 62 03/22/22 00:33 94 Mechanical Ventilator 30 03/22/22 00:00 37.1 26 95 Mechanical Ventilator 30.00 03/22/22 00:00 30 03/21/22 23:11 36.9 26 Mechanical Ventilator 30.00 03/21/22 23:08 62 130/58 03/21/22 23:00 36.9 61 26 95 Mechanical Ventilator 30.00 03/21/22 22:00 37.0 62 26 95 Mechanical Ventilator 30.00 03/21/22 21:53 62 26 95 30 03/21/22 21:00 37.1 63 26 95 Mechanical Ventilator 30.00 03/21/22 20:04 63 128/49 03/21/22 20:04 63 128/49 03/21/22 20:00 95 Mechanical Ventilator 30 03/21/22 20:00 37.1 64 26 94 Mechanical Ventilator 30.00 03/21/22 20:00 30 03/21/22 19:41 37.1 03/21/22 19:37 63 128/49 03/21/22 19:37 37.1 26 Mechanical Ventilator 30.00 03/21/22 19:00 64 03/21/22 19:00 37.1 65 26 95 Mechanical Ventilator 30.00 03/21/22 18:47 63 26 95 30 03/21/22 18:00 37.1 26 95 Mechanical Ventilator 30.00 03/21/22 17:00 37.0 26 95 Mechanical Ventilator 30.00 03/21/22 16:03 65 123/46 03/21/22 16:00 30 03/21/22 16:00 96 Mechanical Ventilator 30 03/21/22 16:00 36.9 26 95 Mechanical Ventilator 30.00 03/21/22 15:05 36.2 03/21/22 15:00 37.0 26 96 Mechanical Ventilator 30.00 03/21/22 14:30 64 26 96 30 03/21/22 14:30 30 03/21/22 14:00 36.9 94 Mechanical Ventilator 35.00 03/21/22 13:42 66 139/53 03/21/22 13:00 36.7 84 96 Mechanical Ventilator 35.00 03/21/22 12:14 70 03/21/22 12:10 35 03/21/22 12:00 36.8 67 95 Mechanical Ventilator 35.00 03/21/22 12:00 36.7 03/21/22 12:00 97 Mechanical Ventilator 35 I & O 03/22/22 07:00 Intake Total 2820 ml Output Total 3375 ml Balance -555 ml Capillary Refill : Less Than 3 Seconds General Appearance: No Apparent Distress HEENT: TMs Normal Neck: Full Range of Motion Respiratory: Decreased Breath Sounds Cardiovascular: Regular Rate, Rhythm Gastrointestinal: normal bowel sounds, soft Extremity: Normal Capillary Refill Neurologic/Psychiatric: Alert, Oriented x3 Skin: Normal Color Lymphatic: No Adenopathy Results Lab Laboratory Tests 03/21/22 17:42: Glucometer 110 03/21/22 23:07: Glucometer 127H 03/22/22 04:05: White Blood Count 8.6, Red Blood Count 3.80L, Hemoglobin 12.3L, Hematocrit 37L, Mean Corpuscular Volume 96, Mean Corpuscular Hemoglobin 32, Mean Corpuscular Hemoglobin Concent 34, Red Cell Distribution Width 15.2H, Platelet Count 388, Mean Platelet Volume 9.8, Immature Granulocyte % (Auto) 1, Neutrophils (%) (Auto) 61, Lymphocytes (%) (Auto) 24, Monocytes (%) (Auto) 13H, Eosinophils (%) (Auto) 1, Basophils (%) (Auto) 1, Neutrophils # (Auto) 5.2, Lymphocytes # (Auto) 2.0, Monocytes # (Auto) 1.1H, Eosinophils # (Auto) 0.1, Basophils # (Auto) 0.1, Immature Granulocyte # (Auto) 0.1, Blood Gas Puncture Site L RAD, Blood Gas Patient Temperature 36.9, Arterial Blood pH 7.40, Arterial Blood Partial Pressure CO2 47H, Arterial Blood Partial Pressure O2 59L, Arterial Blood HCO3 29 H, Arterial Blood Total CO2 30.1, Arterial Blood Oxygen Saturation 89L, Arterial Blood Base Excess 4.1H, Johnathon Test YES-POS, Blood Gas Ventilator Setting YES, Blood Gas Inspired Oxygen 50%, Sodium Level 144, Potassium Level 3.3L, Chloride Level 106, Carbon Dioxide Level 23, Anion Gap 15H, Blood Urea Nitrogen 31H, Creatinine 1.01, Estimat Glomerular Filtration Rate 85, BUN/Creatinine Ratio 31, Glucose Level 143H, Calcium Level 8.9, Phosphorus Level 4.3, Magnesium Level 2.1, Triglycerides Level 182H 03/22/22 11:22: Glucometer 126H Microbiology 03/13/22 MRSA Screen - Final, Complete MRSA not isolated 03/12/22 Blood Culture - Final, Complete No growth Assessment/Plan Assessment/Plan Assess & Plan/Chief Complaint on vent sedated with NSTEMI and respiratory failure with ileus vs constipation. cont reglan and fleet enema. when significant BM and less NGT output then start TF's. ANALIA SALAZAR MD Mar 22, 2022 11:54
--- NOTE | 2022-03-22 12:45 | Progress Note - Hospitalist ---
DOMINIK RICE MED STUDENT 03/22/22 1245: Subjective HPI/CC On Admission Date Seen by Provider: Mar 22, 2022 Time Seen by Provider: 09:15 Patient is a 61-year-old -[place] male with past medical history of coronary artery disease, hypertension, hyperlipidemia,, COPD who presented to the emergency department due to hypoxia and chest pain. He was seen at the walk-in clinic at [facility] and complained of chest pain to them and he was referred to the emergency department. He has been seen in the ER multiple times in the past week or so but has declined most work-up at those visits. This visit he did allow for labs and x-ray which revealed an NSTEMI. He was admitted for further management. Unfortunately overnight his respiratory status worsened and he required intubation. He is unable to provide me any history due to this and thus all history was obtained from the records. Subjective/Events-last exam Pt being seen in f/u for acute respiratory failure. Pt remains intubated and sedated this morning. Oxygen requirement continues to decrease. Vent settings at 35% and PEEP of 6. Objective Exam Vital Signs Vital Signs Date Time Temp Pulse Resp B/P (MAP) Pulse Ox O2 Delivery O2 Flow Rate FiO2 03/22/22 12:00 36.5 75 28 95 Mechanical Ventilator 30.00 03/22/22 10:27 35 Capillary Refill : Less Than 3 Seconds General Appearance: Chronically ill, Obese HEENT: PERRL/EOMI, Moist Mucous Membranes Respiratory: Chest Non Tender, Decreased Breath Sounds, Other (intubated) Cardiovascular: Regular Rate, Rhythm, No Murmur Gastrointestinal: Soft, Abnormal Bowel Sounds (no bowel sounds) Extremity: Normal Inspection, Non Tender, No Pedal Edema Neurologic/Psychiatric: Other (intubated and sedated) Skin: Normal Color, Warm/Dry Results/Procedures Lab Laboratory Tests 03/22/22 04:05 Patient resulted labs reviewed. Imaging: Reviewed Imaging Report Assessment/Plan Assessment and Plan Assess & Plan/Chief Complaint Acute hypercapnic and hypoxic respiratory failure CHF Ileus COPD with lower respiratory tract infection Sepsis NSTEMI CAD HTN HLD DMII Acute hypercapnic and hypoxic respiratory failure -Intubated and sedated since 03/12, decreasing oxygen requirement currently 30% O2 and PEEP of 6 -Will do SBT today -Extubated 03/17 for one hour with re-intubation after hypoxia -Tube feeds stopped d/t increasing residual volume and no bowel sounds auscultated CHF -Lasix held yesterday 03/21 and low urine output, will restart these today -Metolazone stopped d/t good urine output -Strict I/O Ileus -Dr. Lopez consulted and recommended Reglan and fleets enemas -Portable KUB unable to be done d/t pt's size, CT was recommended, will await general surgery recommendations COPD with lower respiratory tract infection Sepsis -Cefepime finished on 03/16 -Off levophed NSTEMI -Cardiology consulted -Possible plan for sleep study? -Aspirin and plavix -BB and joshua-inhibitor as tolerated -Echo showed EF of 35% DMII -SSI CAD HTN HLD Disposition: Will continue to monitor respiratory status and do SBT today. Will continue to monitor closely. Daughter updated on plan today. donor services coordinator is also involved, appreciate their assistance. DVT ppx: lovenox GI ppx: Protonix Code Status: Full Code Diagnosis/Problems Diagnosis/Problems (1) COPD (chronic obstructive pulmonary disease) Status: Acute Qualifiers: Qualified Codes: J44.0 - Chronic obstructive pulmonary disease with (acute) lower respiratory infection (2) Acute respiratory failure Status: Acute Qualifiers: Qualified Codes: J96.01 - Acute respiratory failure with hypoxia; J96.02 - Acute respiratory failure with hypercapnia (3) Morbid obesity Status: Chronic (4) NSTEMI (non-ST elevation myocardial infarction) Status: Acute (5) Acute HFrEF (heart failure with reduced ejection fraction) Status: Acute (6) CAD (coronary artery disease) Qualifiers: Qualified Codes: I25.10 - Atherosclerotic heart disease of [place] coronary artery without angina pectoris MIRACLE MOLINA MD 03/22/22 1319: Subjective HPI/CC On Admission Time Seen by Provider: 10:45 Assessment/Plan Assessment and Plan Assess & Plan/Chief Complaint Oxygen down to 30% FiO2 this morning. Discussed case with Dr. Duggan, teleOVI, and planning for weaning sedation and attempting SBT if able this afternoon. I am cautiously optimistic regarding extubation. May require tracheostomy if intubation is prolonged. Surgery following for ileus. Critical Care: Critically Ill Patient Diagnosis/Problems Diagnosis/Problems (1) Acute respiratory failure Status: Acute Qualifiers: Qualified Codes: J96.01 - Acute respiratory failure with hypoxia; J96.02 - Acute respiratory failure with hypercapnia (2) Acute HFrEF (heart failure with reduced ejection fraction) Status: Acute (3) Endotracheally intubated Status: Acute (4) NSTEMI (non-ST elevation myocardial infarction) Status: Acute (5) PNA (pneumonia) Status: Resolved Resolution Date/Time: 03/18/22 @ 18:15 (6) Morbid obesity Status: Chronic (7) COPD (chronic obstructive pulmonary disease) Status: Acute Qualifiers: Qualified Codes: J44.0 - Chronic obstructive pulmonary disease with (acute) lower respiratory infection Supervisory-Addendum Brief Verification & Attestation Participated in pt care: history, MDM, physical Personally performed: exam, history, MDM, supervision of care Care discussed with: Medical Student Procedures: n/a Results interpretation: Verified all documentation A medical student performed and documented this service in my presence. I reviewed and verified all information documented by the medical student and made modifications to such information, when appropriate. I personally performed the physical exam and medical decision making. DOMINIK RICE MED STUDENT Mar 22, 2022 12:45 MIRACLE MOLINA MD Mar 22, 2022 13:19
[2022-03-22 13:27] VITALS: BP 149/61
[2022-03-22 14:01] LABS: ABG BASE EXCESS 4.5 MMOL/L (-2.5-2.5); ABG OXYGEN SATURATION 84 % (94-100); ABG PCO2 45 MMHG (35-45); ABG PH 7.42 (7.37-7.43); ABG PO2 50 MMHG (79-93); ABG TCO2 30.3 MMOL/L (21.0-31.0)
[2022-03-22 14:04] LABS: INSPIRED O2 30%; PATIENT TEMP 36.7; VENTILATOR YES
[2022-03-22] MEDS ORDERED: LABETALOL HCL 20 MG/4 ML VIAL ONE (14:40)
[2022-03-22] MEDS: LABETALOL HCL 20 MG/4 ML VIAL IV PRN (14:41)
[2022-03-22] MEDS ORDERED: hydrALAZINE (APESOLINE) 20 MG/ML VIAL ONE (15:09)
[2022-03-22] MEDS ORDERED: hydrALAZINE (APESOLINE) 20 MG/ML VIAL IV PRN (15:15)
[2022-03-22] MEDS ORDERED: niCARdipine IV 50 MG (PYXIS DRIP KIT) ONE (15:23)
[2022-03-22] MEDS ORDERED: NORMAL SALINE 250 ML ONE (15:24)
[2022-03-22] MEDS: niCARdipine IV (Pyxis drip kit 50 MG in NS (IVPB) 230 ML IV SCH ×2 (15:32→22:37)
--- NOTE | 2022-03-22 15:54 | ED Addendum ---
Addendum Physician Addendum Addendum I was called to the patient's room as he was recently extubated and the nurse thought that he needed to be reintubated. On my arrival to get [id number] ventilations in progress with minimal respiratory effort, hypoxia. He was unresponsive. He was reintubated using a MAC 4 glide scope, 7.5 ET tube. Etomidate and rocuronium were used for rapid sequence intubation equal breath sounds bilaterally and confirmed by chest x-ray. No complications. Progress 15:51 General Chief Complaint: Respiratory Problems Stated Complaint: ELEVATED CARDIAC ENZYMES Nursing Triage Note: PT BROUGHT IN BY [facility] FROM [facility] WITH COMPLAINT OF SOA. PT WAS IN WAITING ROOM AT [facility] AND HAD COUGHING FIT AND O2 WAS 89% ON RA. STATES BECAME SOA 2 DAYS AGO. HX OF COPD. Nursing Sepsis Screen: No Definite Risk History of Present Illness Date Seen by Provider: Mar 22, 2022 Time Seen by Provider: 15:42 Physical Exam Vital Signs Capillary Refill : Less Than 3 Seconds Height, Weight, BMI Height: '" Weight: lbs. oz. kg; 49.29 BMI Method: General Appearance: Other (Unresponsive, bag valve ventilation) Comments See addendum for exam Review of Systems Constitutional: no symptoms reported Progress/Results/Core Measures Results/Orders Lab Results Laboratory Tests Test 03/11/22 15:45 03/11/22 15:54 Range/Units Influenza Type A (RT-PCR) Not Detected Not Detecte Influenza Type B (RT-PCR) Not Detected Not Detecte SARS-CoV-2 RNA (RT-PCR) Not Detected Not Detecte White Blood Count 6.5 4.3-11.0 10^3/uL Red Blood Count 4.30 4.30-5.52 10^6/uL Hemoglobin 13.8 13.3-17.7 g/dL Hematocrit 41 40-54 % Mean Corpuscular Volume 96 80-99 fL Mean Corpuscular Hemoglobin 32 25-34 pg Mean Corpuscular Hemoglobin Concent 34 32-36 g/dL Red Cell Distribution Width 14.7 H 10.0-14.5 % Platelet Count 212 130-400 10^3/uL Mean Platelet Volume 9.9 9.0-12.2 fL Immature Granulocyte % (Auto) 1 % Neutrophils (%) (Auto) 53 42-75 % Lymphocytes (%) (Auto) 35 12-44 % Monocytes (%) (Auto) 12 0-12 % Eosinophils (%) (Auto) 0 0-10 % Basophils (%) (Auto) 1 0-10 % Neutrophils # (Auto) 3.4 1.8-7.8 10^3/uL Lymphocytes # (Auto) 2.3 1.0-4.0 10^3/uL Monocytes # (Auto) 0.8 0.0-1.0 10^3/uL Eosinophils # (Auto) 0.0 0.0-0.3 10^3/uL Basophils # (Auto) 0.0 0.0-0.1 10^3/uL Immature Granulocyte # (Auto) 0.0 0.0-0.1 10^3/uL Prothrombin Time 13.0 12.2-14.7 SEC INR Comment 0.9 0.8-1.4 Activated Partial Thromboplast Time 30 24-35 SEC D-Dimer 0.46 0.00-0.49 UG/ML Sodium Level 136 135-145 MMOL/L Potassium Level 3.8 3.6-5.0 MMOL/L Chloride Level 99 98-107 MMOL/L Carbon Dioxide Level 25 21-32 MMOL/L Anion Gap 12 5-14 MMOL/L Blood Urea Nitrogen 10 7-18 MG/DL Creatinine 1.28 0.60-1.30 MG/DL Estimat Glomerular Filtration Rate 64 BUN/Creatinine Ratio 8 Glucose Level 125 H 70-105 MG/DL Calcium Level 8.8 8.5-10.1 MG/DL Corrected Calcium 8.9 8.5-10.1 MG/DL Magnesium Level 1.7 1.6-2.4 MG/DL Total Bilirubin 0.6 0.1-1.0 MG/DL Aspartate Amino Transf (AST/SGOT) 29 5-34 U/L Alanine Aminotransferase (ALT/SGPT) 21 0-55 U/L Alkaline Phosphatase 61 40-136 U/L Total Creatine Kinase 764 H 30-200 U/L Creatine Kinase MB 3.0 <6.6 NG/ML Myoglobin 296.8 H 10.0-92.0 NG/ML Troponin I 0.029 H <0.028 NG/ML B-Type Natriuretic Peptide 289.3 H <100.0 PG/ML Total Protein 6.5 6.4-8.2 GM/DL Albumin 3.9 3.2-4.5 GM/DL Lipase 7 L 8-78 U/L Blood Pressure Mean: 150 FSBG Bedside Testing Finger Stick Blood Glucose: 126 Blood Glucose Action Taken: RN NOTIFIED Diagnostic Imaging Diagonstic Imaging: Xray Plain Films/CT/US/NM/MRI: chest Time of Consult: 19:47 Critical Care Note Critical Care Start Time: 03:30 Stop Time: 03:45 Departure Impression Impression: Primary Impression: Elevation of cardiac enzymes Additional Impressions: Shortness of breath COPD with acute bronchitis Decision to Admit/Discharge Decision to Admit/Dismiss Date: Mar 22, 2022 Disposition/Decision to Admit: 15:54 Departure Disposition: 30 STILL A PATIENT Condition: Critical Referrals: NO,LOCAL PHYSICIAN (PCP) Primary Care Physician Scripts No Active Prescriptions or Reported Meds GRABIEL ALEX DO Mar 22, 2022 15:54
[2022-03-22 16:13] VITALS: BP 145/64
--- NOTE | 2022-03-22 16:14 | Diagnostic Imaging Report ---
EXAMINATION: Chest, one view. HISTORY: Reintubation. Shortness of breath. COMPARISON: 03/19/2022. FINDINGS: Endotracheal tube is seen overlying the trachea approximately 4.5 cm above the alejandro. A right-sided PICC is visualized with the tip overlying the low SVC. The distal enteric tube is poorly visualized. Hazy opacities are seen in the lung bases with patchy perihilar opacities. No large pneumothorax. Stable cardiac silhouette. IMPRESSION: 1. Appropriate configuration of the endotracheal tube. The right PICC is well positioned. The distal enteric tube is poorly visualized. 2. Increasing perihilar and basilar opacities, which may represent atelectasis, edema, and/or infection. Dictated by: Dictated on workstation # [id number]
[2022-03-22] MEDS: FUROSEMIDE 40 MG/4 ML INJ (LASIX) IVP SCH (17:22)
[2022-03-22] MEDS ORDERED: ROCURONIUM 10 MG/ML 5 ML SYRINGE IV ONE (19:21)
[2022-03-22] MEDS ORDERED: ETOMIDATE IV SOLN 20 MG/10 ML VIAL IV ONE (19:21)
[2022-03-22] MEDS: NS IV 1000 ML 1,000 ML IV SCH (21:07)
[2022-03-22 22:15] VITALS: BP 113/58
[2022-03-23] MEDS: RT-ALBUTEROL/IPRATROPIUM 3 ML (DUONEB) VIAL INH SCH ×6 (02:38→22:04)
[2022-03-23 02:39] VITALS: BP 113/58
[2022-03-23 03:44] LABS: CALCIUM 9.1 MG/DL (8.5-10.1); CREATININE SERUM 1.13 MG/DL (0.60-1.30); PHOSPHORUS 5.4 MG/DL (2.3-4.7); POTASSIUM 3.5 MMOL/L (3.6-5.0)
[2022-03-23] MEDS: PROPOFOL DRIP (ICU) 100 ML IV SCH ×4 (04:37→18:22)
[2022-03-23] MEDS: meTOprolol 5 MG/5 ML (LOPRESSOR) VIAL IV SCH ×5 (04:38→23:09)
[2022-03-23 05:41] LABS: BASOPHILS # (AUTO) 0.1 10^3/uL (0.0-0.1); BASOPHILS % (AUTO) 1 % (0-10); EOSINOPHILS % (AUTO) 0 % (0-10); HEMATOCRIT 39 % (40-54); HEMOGLOBIN 12.7 g/dL (13.3-17.7); LYMPHOCYTES # (AUTO) 2.3 10^3/uL (1.0-4.0); LYMPHOCYTES % (AUTO) 23 % (12-44); MEAN CORPUSCULAR HEMOGLOBIN 32 pg (25-34); MEAN CORPUSCULAR HGB CONC 33 g/dL (32-36); MEAN CORPUSCULAR VOLUME 98 fL (80-99); MEAN PLATELET VOLUME 10.3 fL (9.0-12.2); MONOCYTES # (AUTO) 1.1 10^3/uL (0.0-1.0); MONOCYTES % (AUTO) 11 % (0-12); NEUTROPHILS # (AUTO) 6.6 10^3/uL (1.8-7.8); NEUTROPHILS % (AUTO) 65 % (42-75); PLATELET COUNT 443 10^3/uL (130-400); WHITE BLOOD COUNT 10.1 10^3/uL (4.3-11.0)
[2022-03-23] MEDS: DexMEDEtomidine 250 ML DRIP 250 ML IV SCH ×2 (05:49→19:45)
[2022-03-23] MEDS: POTASSIUM CL 10MEQ/50ML IVPB 50 ML IV SCH (05:50)
[2022-03-23] MEDS: KCL 20 MEQ TAB (K-DUR) PO SCH (05:50)
[2022-03-23] MEDS: FLEET ENEMA ADULT 1 EA BTL PR SCH ×3 (05:50→22:26)
[2022-03-23] MEDS: fentaNYL DRIP PRE-MIX 250 ML IV SCH (05:50)
[2022-03-23] MEDS: MAGNESIUM 1 GM/100 ML IVPB 100 ML IV SCH (05:50)
[2022-03-23] MEDS: FUROSEMIDE 40 MG/4 ML INJ (LASIX) IVP SCH ×2 (06:08→17:53)
[2022-03-23] MEDS: METOCLOPRAMIDE INJ 10 MG/2 ML (REGLAN) IVP SCH ×5 (06:10→23:13)
[2022-03-23 07:39] VITALS: BP 126/55
[2022-03-23] MEDS: PANTOPRAZOLE 40 MG (PROTONIX) VIAL IV SCH (08:52)
[2022-03-23] MEDS: ENALAPRILAT 2.5 MG/2 ML (VASOTEC) VIAL IV SCH ×2 (08:52→20:38)
[2022-03-23] MEDS: CLOPIDOGREL 75 MG (PLAVIX) TABLET PO SCH (08:53)
[2022-03-23] MEDS: ASPIRIN 81 MG CHEW (CHILDREN'S ASA) PO SCH (08:53)
[2022-03-23] MEDS: LACRI-LUBE OPTHALMIC OINT 3.5 GM TUBE OU SCH ×3 (08:54→20:45)
[2022-03-23] MEDS: 1/2 NS W/KCL 20 MEQ/L 1,000 ML IV SCH ×2 (08:54→17:54)
--- NOTE | 2022-03-23 09:18 | Tele-ICU Progress Note ---
Subjective Date Seen by a Provider: Mar 23, 2022 Subjective/Events-last exam This virtual visit was conducted using real time audio/video. Thank you for asking us to see this patient for respiratory insufficiency due to AECOPD/CHF, sepsis. Intub 03:15 03/12/2022. Possible NATALIE/OHS. Had trial of extubation with BiPAP support 03/22. Failed comprehensively at 1 hour with thoraco-abdominal asynchrony, O2 sat 85% despite 100% FiO2 and SBP 250 mm Hg. PMH: COPD, htn, DM2, EF 35-40%, CAD/stents, HL, CRI. PE: VSS. Sedated on vent. O2 sat 95% on AC 26/500/65%/+10. HEENT: No obvious masses, adenopathy or JVD. Chest: Greatly diminished on auscultation. CV: RRR S1 S2 No murmur or added sounds. Abd: Non-tender. Bowel sounds Y. : Unremarkable. Jenkins Y. MAGAZINE REPAIRER/psychiatric: Grossly intact. No obvious focal findings. Extremities: 1+ edema. Capillary refill < 3 seconds. Skin: unremarkable. Results: Elevated BG 143. Decreased Hb 12.7, K 3.5. B.4/47/59 on 45%/+6. CXR: R basal infilt, hyperinflation.. Available chart/ vitals / labs / images reviewed. Video assessment done using teleICU camera, rest of exam as per RN. A/P: Respiratory insufficiency: Continue present management with vent, Duon., Prec., Prop., Fent. No SBT repeat necessary in view of failed extubation. See above. Consider Palliative Care/Hospice referral. Otherwise, will need trach/PEG. Critical Care: critically ill patient. Cont. Lasix, Pepcid, ASA, Bertrand., metop., Plavix, reglan, vasotec, PPI. Replace K. Discussed with EMMANUELLE Smith. Asked RN to reach out to eICU if any questions or concerns later. Time spent with patient/coordination of care with other health professionals (mins): 23 Sepsis Event Evaluation Height, Weight, BMI Height: '" Weight: lbs. oz. kg; 48.91 BMI Method: Exam Exam Patient acknowledged, consented, and participated in this virtual visit which was conducted using real time audio/video Vital Signs Date Time Temp Pulse Resp B/P (MAP) Pulse Ox O2 Delivery O2 Flow Rate FiO2 03/23/22 08:46 136/57 03/23/22 08:00 75 25 98 Mechanical Ventilator 65.00 03/23/22 07:52 36.3 03/23/22 07:43 Mechanical Ventilator 65.00 03/23/22 07:39 76 26 95 65 03/23/22 07:00 77 03/23/22 07:00 75 27 99 Mechanical Ventilator 80.00 03/23/22 06:02 70 03/23/22 06:00 80 17 98 Mechanical Ventilator 80.00 03/23/22 05:00 84 17 98 Mechanical Ventilator 80.00 03/23/22 04:00 80 03/23/22 04:00 98 Mechanical Ventilator 80 03/23/22 04:00 86 17 97 Mechanical Ventilator 80.00 03/23/22 03:00 90 15 98 Mechanical Ventilator 80.00 03/23/22 02:39 90 26 98 80 03/23/22 02:00 93 18 98 Mechanical Ventilator 80.00 03/23/22 01:00 89 26 98 Mechanical Ventilator 80.00 03/23/22 01:00 90 03/23/22 00:00 80 03/23/22 00:00 38.3 80.00 03/23/22 00:00 91 33 97 Mechanical Ventilator 80.00 03/22/22 23:50 98 Mechanical Ventilator 80 03/22/22 23:00 85 19 97 Mechanical Ventilator 100.00 03/22/22 22:15 82 29 97 80 03/22/22 22:00 83 25 97 Mechanical Ventilator 100.00 03/22/22 21:00 78 26 96 Mechanical Ventilator 100.00 03/22/22 20:19 80 103/54 03/22/22 20:00 79 26 97 Mechanical Ventilator 100.00 03/22/22 20:00 98 Mechanical Ventilator 80 03/22/22 20:00 80 03/22/22 19:42 36.7 03/22/22 19:00 83 03/22/22 19:00 83 27 97 Mechanical Ventilator 100.00 03/22/22 18:00 85 97 Mechanical Ventilator 100.00 03/22/22 17:00 96 95 Mechanical Ventilator 100.00 03/22/22 16:13 108 26 93 100 03/22/22 16:00 100 03/22/22 16:00 92 Mechanical Ventilator 100 03/22/22 16:00 108 28 93 Mechanical Ventilator 100.00 Automatic Cuff 03/22/22 16:00 36.9 03/22/22 15:46 Mechanical Ventilator 100.00 03/22/22 15:32 253/100 03/22/22 15:00 79 25 98 NIV Bilevel 80.00 176/117 (136) 03/22/22 14:30 96 24 98 80.00 03/22/22 14:30 NIV Bilevel 80.00 03/22/22 14:00 36.8 79 22 95 Mechanical Ventilator 30.00 03/22/22 13:27 68 17 99 30 03/22/22 13:00 65 03/22/22 13:00 36.4 63 15 96 Mechanical Ventilator 30.00 03/22/22 12:47 63 126/63 03/22/22 12:00 36.5 75 28 95 Mechanical Ventilator 30.00 03/22/22 12:00 97 Mechanical Ventilator 40 03/22/22 12:00 30 03/22/22 11:52 36.6 03/22/22 11:00 36.6 67 27 94 Mechanical Ventilator 30.00 03/22/22 10:56 Mechanical Ventilator 30.00 03/22/22 10:55 Mechanical Ventilator 35.00 03/22/22 10:27 66 26 94 35 03/22/22 10:00 36.7 66 26 94 Mechanical Ventilator 50.00 03/22/22 09:42 67 143/64 03/22/22 09:42 67 143/64 03/22/22 09:42 67 143/64 03/22/22 09:39 70 133/61 I & O 03/23/22 07:00 Intake Total 910 ml Output Total 2601 ml Balance -1691 ml Height & Weight Height: '" Weight: lbs. oz. kg; 48.91 BMI Method: General Appearance: Other (Unresponsive, bag valve ventilation) HEENT: PERRL/EOMI, Moist Mucous Membranes Neck: Full Range of Motion Respiratory: Chest Non Tender, Decreased Breath Sounds, Other (intubated) Cardiovascular: Regular Rate, Rhythm, No Murmur Capillary Refill: Less Than 3 Seconds Gastrointestinal: normal bowel sounds, soft Extremity: Normal Inspection, Non Tender, No Pedal Edema Neurologic/Psychiatric: Other (intubated and sedated) Skin: Normal Color, Warm/Dry Lymphatic: No Adenopathy Results Lab Laboratory Tests 03/22/22 04:05 03/23/22 03:19 03/23/22 03:20 Assessment/Plan Assessment/Plan See free text. Critical Care: Ventilator Management JAKUB WEISS MD Mar 23, 2022 09:18
--- NOTE | 2022-03-23 10:06 | Progress Note - Hospitalist ---
Subjective HPI/CC On Admission Date Seen by Provider: Mar 23, 2022 Time Seen by Provider: 09:00 Patient is a 61-year-old -French male with past medical history of coronary artery disease, hypertension, hyperlipidemia,, COPD who presented to the emergency department due to hypoxia and chest pain. [facility] and complained of chest pain to them and he was referred to the emergency department. He has been seen in the ER multiple times in the past week or so but has declined most work-up at those visits. This visit he did allow for labs and x-ray which revealed an NSTEMI. He was admitted for further management. Unfortunately overnight his respiratory status worsened and he required intubation. He is unable to provide me any history due to this and thus all history was obtained from the records. Subjective/Events-last exam Patient sedated on mechanical ventilation no care problems reported per staff does not appear to be in acute distress. Objective Exam Vital Signs Vital Signs Date Time Temp Pulse Resp B/P (MAP) Pulse Ox O2 Delivery O2 Flow Rate FiO2 03/23/22 09:43 118/52 03/23/22 09:00 81 26 96 Mechanical Ventilator 65.00 03/23/22 07:52 36.3 03/23/22 07:39 65 Capillary Refill : Less Than 3 Seconds General Appearance: No Apparent Distress, Obese Respiratory: No Accessory Muscle Use, Other (Faint inspiratory wheeze throughout diminished breath sounds throughout) Cardiovascular: Regular Rate, Rhythm, No Murmur, Other (Distant heart sounds likely due to body habitus) Gastrointestinal: Soft (Few bowel sounds noted hypoactive) Results/Procedures Lab Laboratory Tests 03/23/22 03:19 03/23/22 03:20 Patient resulted labs reviewed. Imaging: Reviewed Imaging Report Assessment/Plan Assessment and Plan Assess & Plan/Chief Complaint (1) COPD (chronic obstructive pulmonary disease) Status: Acute on chronic hypercapnic respiratory failure based on patient's first blood gas revealing that his pH was at the lower end of the normal range at 7.35 despite a CO2 level of 48. His sodium levels up to 149 so we will need to increase free water and initiate half-normal saline with 20 of KCl at 100/h and monitor. His abdomen is soft although bowel sounds remain hypoactive continue to hold tube feeding for now defer to surgery. Had discussion with family about poor prognosis. Qualifiers: Qualified Codes: J44.0 - Chronic obstructive pulmonary disease with (acute) lower respiratory infection (2) Acute respiratory failure Status: Acute Qualifiers: Qualified Codes: J96.01 - Acute respiratory failure with hypoxia; J96.02 - Acute respiratory failure with hypercapnia (3) Morbid obesity Status: Chronic (4) NSTEMI (non-ST elevation myocardial infarction) Status: Acute (5) Acute HFrEF (heart failure with reduced ejection fraction) Status: Acute (6) CAD (coronary artery disease) Qualifiers: Qualified Codes: I25.10 - Atherosclerotic heart disease of [place] coronary artery without angina pectoris Critical Care Ventilator Management BRODERICK VILLEGAS MD Mar 23, 2022 10:06
[2022-03-23] MEDS: niCARdipine IV (Pyxis drip kit 50 MG in NS (IVPB) 230 ML IV SCH ×2 (11:12→20:47)
[2022-03-23 11:17] VITALS: BP 117/52
[2022-03-23] MEDS: ENOXAPARIN 40 MG/0.4 ML (LOVENOX) SYR SQ SCH ×2 (11:36→23:13)
[2022-03-23 15:16] VITALS: BP 132/51
[2022-03-23 19:16] VITALS: BP 139/55
--- NOTE | 2022-03-23 19:31 | Progress Note - Surgery ---
Subjective Time Seen by a Provider: 19:21 Subjective/Events-last exam Pt seen and examined, sedated and intubated. Spoke with nurse who stated she had him last night as well. States that the Reglan and enemas seem to be producing some results. Now has bowel sounds and getting more liquid stool than just fluid from the enema. Review of Systems unable to obtain, pt sedated and intubated Objective Exam Vital Signs Date Time Temp Pulse Resp B/P (MAP) Pulse Ox O2 Delivery O2 Flow Rate FiO2 03/23/22 19:16 69 26 95 55 03/23/22 18:38 66 03/23/22 18:22 138/55 03/23/22 18:00 65 10 97 Mechanical Ventilator 55.00 03/23/22 17:32 67 120/50 03/23/22 17:00 77 17 95 Mechanical Ventilator 55.00 03/23/22 16:00 77 33 90 Mechanical Ventilator 55.00 03/23/22 16:00 Mechanical Ventilator 55 03/23/22 16:00 55 03/23/22 15:24 36.8 03/23/22 15:16 71 26 96 55 03/23/22 15:00 73 17 90 Mechanical Ventilator 55.00 03/23/22 14:00 71 95 Mechanical Ventilator 55.00 03/23/22 13:45 107/45 03/23/22 13:24 107/44 03/23/22 13:00 79 32 96 Mechanical Ventilator 55.00 03/23/22 12:58 79 03/23/22 12:00 77 22 97 Mechanical Ventilator 55.00 03/23/22 11:59 36.5 03/23/22 11:46 97 Mechanical Ventilator 55 03/23/22 11:45 55 03/23/22 11:44 97 Mechanical Ventilator 55.00 03/23/22 11:17 76 26 96 55 03/23/22 11:00 80 17 99 Mechanical Ventilator 65.00 03/23/22 10:00 84 17 96 Mechanical Ventilator 65.00 03/23/22 09:58 126/56 03/23/22 09:58 126/56 03/23/22 09:43 118/52 03/23/22 09:00 81 26 96 Mechanical Ventilator 65.00 03/23/22 08:46 136/57 03/23/22 08:35 65 03/23/22 08:00 75 25 98 Mechanical Ventilator 65.00 03/23/22 07:55 Mechanical Ventilator 65 03/23/22 07:52 36.3 03/23/22 07:43 Mechanical Ventilator 65.00 03/23/22 07:39 76 26 95 65 03/23/22 07:00 77 03/23/22 07:00 75 27 99 Mechanical Ventilator 80.00 03/23/22 06:02 70 03/23/22 06:00 80 17 98 Mechanical Ventilator 80.00 03/23/22 05:00 84 17 98 Mechanical Ventilator 80.00 03/23/22 04:00 80 03/23/22 04:00 98 Mechanical Ventilator 80 03/23/22 04:00 86 17 97 Mechanical Ventilator 80.00 03/23/22 03:00 90 15 98 Mechanical Ventilator 80.00 03/23/22 02:39 90 26 98 80 03/23/22 02:00 93 18 98 Mechanical Ventilator 80.00 03/23/22 01:00 89 26 98 Mechanical Ventilator 80.00 03/23/22 01:00 90 03/23/22 00:00 80 03/23/22 00:00 38.3 80.00 03/23/22 00:00 91 33 97 Mechanical Ventilator 80.00 03/22/22 23:50 98 Mechanical Ventilator 80 03/22/22 23:00 85 19 97 Mechanical Ventilator 100.00 03/22/22 22:15 82 29 97 80 03/22/22 22:00 83 25 97 Mechanical Ventilator 100.00 03/22/22 21:00 78 26 96 Mechanical Ventilator 100.00 03/22/22 20:19 80 103/54 03/22/22 20:00 79 26 97 Mechanical Ventilator 100.00 03/22/22 20:00 98 Mechanical Ventilator 80 03/22/22 20:00 80 03/22/22 19:42 36.7 I & O 03/23/22 07:00 Intake Total 910 ml Output Total 2601 ml Balance -1691 ml Capillary Refill : Less Than 3 Seconds General Appearance: Obese, Other (intubated and sedated) HEENT: Other (ET tube in place) Respiratory: No Accessory Muscle Use, No Respiratory Distress, Other (Faint inspiratory wheeze throughout diminished breath sounds throughout) Cardiovascular: Regular Rate, Rhythm, No Murmur, Other (Distant heart sounds likely due to body habitus) Gastrointestinal: normal bowel sounds, soft Neurologic/Psychiatric: Other (intubated and sedated) Skin: Normal Color, Warm/Dry Results Lab Laboratory Tests 03/23/22 03:19: Sodium Level 149H, Potassium Level 3.5L, Chloride Level 106, Carbon Dioxide Level 26, Anion Gap 17H, Blood Urea Nitrogen 33H, Creatinine 1.13, Estimat Glomerular Filtration Rate 74, BUN/Creatinine Ratio 29, Glucose Level 133H, Calcium Level 9.1, Phosphorus Level 5.4H, Magnesium Level 2.0 03/23/22 03:20: White Blood Count 10.1, Red Blood Count 3.94L, Hemoglobin 12.7L, Hematocrit 39L, Mean Corpuscular Volume 98, Mean Corpuscular Hemoglobin 32, Mean Corpuscular Hemoglobin Concent 33, Red Cell Distribution Width 15.1H, Platelet Count 443H, Mean Platelet Volume 10.3, Immature Granulocyte % (Auto) 1, Neutrophils (%) (Auto) 65, Lymphocytes (%) (Auto) 23, Monocytes (%) (Auto) 11, Eosinophils (%) (Auto) 0, Basophils (%) (Auto) 1, Neutrophils # (Auto) 6.6, Lymphocytes # (Auto) 2.3, Monocytes # (Auto) 1.1H, Eosinophils # (Auto) 0.0, Basophils # (Auto) 0.1, Immature Granulocyte # (Auto) 0.1, Triglycerides Level 134 03/23/22 11:54: Glucometer 113H 03/23/22 17:16: Glucometer 123H Microbiology 03/13/22 MRSA Screen - Final, Complete MRSA not isolated 03/12/22 Blood Culture - Final, Complete No growth Assessment/Plan Assessment/Plan Assessment/Plan Ileus NSTEMI Respiratory failure Continue reglan and fleet enema; when significant BM and less NGT output then s mazin Driscoll. MELISSA IRWIN DO Mar 23, 2022 19:31
[2022-03-23 22:05] VITALS: BP 139/55
[2022-03-23] MEDS: NS IV 1000 ML 1,000 ML IV SCH (22:27)
[2022-03-24] MEDS: 1/2 NS W/KCL 20 MEQ/L 1,000 ML IV SCH ×2 (01:48→03:06)
[2022-03-24] MEDS: PROPOFOL DRIP (ICU) 100 ML IV SCH ×5 (01:48→21:09)
[2022-03-24] MEDS: fentaNYL DRIP PRE-MIX 250 ML IV SCH ×2 (01:49→16:35)
[2022-03-24] MEDS: FLEET ENEMA ADULT 1 EA BTL PR SCH ×3 (01:49→21:09)
[2022-03-24] MEDS: KCL 20 MEQ TAB (K-DUR) PO SCH (01:50)
[2022-03-24] MEDS: meTOprolol 5 MG/5 ML (LOPRESSOR) VIAL IV SCH ×4 (01:50→23:07)
[2022-03-24 02:14] VITALS: BP 122/56
[2022-03-24] MEDS: RT-ALBUTEROL/IPRATROPIUM 3 ML (DUONEB) VIAL INH SCH ×6 (02:14→21:33)
[2022-03-24 02:24] LABS: BASOPHILS # (AUTO) 0.1 10^3/uL (0.0-0.1); BASOPHILS % (AUTO) 1 % (0-10); EOSINOPHILS # (AUTO) 0.1 10^3/uL (0.0-0.3); EOSINOPHILS % (AUTO) 1 % (0-10); HEMATOCRIT 35 % (40-54); HEMOGLOBIN 11.5 g/dL (13.3-17.7); LYMPHOCYTES % (AUTO) 27 % (12-44); MEAN CORPUSCULAR HEMOGLOBIN 32 pg (25-34); MEAN CORPUSCULAR HGB CONC 33 g/dL (32-36); MEAN CORPUSCULAR VOLUME 98 fL (80-99); MONOCYTES # (AUTO) 1.2 10^3/uL (0.0-1.0); MONOCYTES % (AUTO) 16 % (0-12); NEUTROPHILS # (AUTO) 3.9 10^3/uL (1.8-7.8); NEUTROPHILS % (AUTO) 54 % (42-75); PLATELET COUNT 395 10^3/uL (130-400); WHITE BLOOD COUNT 7.3 10^3/uL (4.3-11.0)
[2022-03-24] MEDS: DexMEDEtomidine 250 ML DRIP 250 ML IV SCH ×4 (03:07→23:49)
[2022-03-24 03:48] LABS: CALCIUM 8.7 MG/DL (8.5-10.1); CREATININE SERUM 1.1 MG/DL (0.60-1.30); MAGNESIUM 1.8 MG/DL (1.6-2.4); POTASSIUM 3.2 MMOL/L (3.6-5.0)
[2022-03-24] MEDS: POTASSIUM CL 10MEQ/50ML IVPB 50 ML IV SCH ×5 (04:15→07:17)
[2022-03-24] MEDS: METOCLOPRAMIDE INJ 10 MG/2 ML (REGLAN) IVP SCH ×4 (05:06→23:07)
[2022-03-24] MEDS: MAGNESIUM 1 GM/100 ML IVPB 100 ML IV SCH (05:08)
[2022-03-24] MEDS: FUROSEMIDE 40 MG/4 ML INJ (LASIX) IVP SCH ×2 (06:07→16:45)
[2022-03-24] MEDS: niCARdipine IV (Pyxis drip kit 50 MG in NS (IVPB) 230 ML IV SCH ×2 (07:19→17:36)
[2022-03-24] MEDS: PANTOPRAZOLE 40 MG (PROTONIX) VIAL IV SCH (07:58)
[2022-03-24] MEDS: LACRI-LUBE OPTHALMIC OINT 3.5 GM TUBE OU SCH ×3 (07:58→20:11)
[2022-03-24] MEDS: ENALAPRILAT 2.5 MG/2 ML (VASOTEC) VIAL IV SCH ×2 (07:58→21:27)
[2022-03-24] MEDS: ASPIRIN 81 MG CHEW (CHILDREN'S ASA) PO SCH (07:59)
[2022-03-24] MEDS: CLOPIDOGREL 75 MG (PLAVIX) TABLET PO SCH (07:59)
[2022-03-24 08:17] VITALS: BP 108/53
--- NOTE | 2022-03-24 08:55 | Tele-ICU Progress Note ---
Progress Note vidoe rounds completed 61 y/o male with hx of DM2, morbid obesity, CAD, hyperlipidemia, COPD admitted with hypoxemic and hypercarbic resp failure. Has been intubated and extubated X 2 and now intubated Vent: 26/ 500/55%/8 sedated and comfortable PE: Hr: 66 NSR BP: 109/53 O2 sat 93% Focused Exam Height, Weight, BMI Height: '" Weight: lbs. oz. kg; 48.91 BMI Method: Labs Laboratory Tests 03/24/22 02:05 Results Results/Procedures Lab Laboratory Tests 03/23/22 03:19 03/23/22 03:20 03/24/22 02:05 Results Labs Labs Laboratory Tests 03/23/22 11:54: Glucometer 113H 03/23/22 17:16: Glucometer 123H 03/24/22 02:05: White Blood Count 7.3, Red Blood Count 3.59L, Hemoglobin 11.5L, Hematocrit 35L, Mean Corpuscular Volume 98, Mean Corpuscular Hemoglobin 32, Mean Corpuscular Hemoglobin Concent 33, Red Cell Distribution Width 15.1H, Platelet Count 395, Mean Platelet Volume 10.0, Immature Granulocyte % (Auto) 0, Neutrophils (%) (Auto) 54, Lymphocytes (%) (Auto) 27, Monocytes (%) (Auto) 16H, Eosinophils (%) (Auto) 1, Basophils (%) (Auto) 1, Neutrophils # (Auto) 3.9, Lymphocytes # (Auto) 2.0, Monocytes # (Auto) 1.2H, Eosinophils # (Auto) 0.1, Basophils # (Auto) 0.1, Immature Granulocyte # (Auto) 0.0, Sodium Level 149H, Potassium Level 3.2L, Chloride Level 108H, Carbon Dioxide Level 26, Anion Gap 15H, Blood Urea Nitrogen 37H, Creatinine 1.10, Estimat Glomerular Filtration Rate 76, BUN/Creatinine Ratio 34, Glucose Level 138H, Calcium Level 8.7, Magnesium Level 1.8 Microbiology 03/13/22 MRSA Screen - Final, Complete MRSA not isolated 03/12/22 Blood Culture - Final, Complete No growth Impression & Plan Impression & Plan DM2 Morbid obesity Respiratory failyre inubated, has failed extubation 2 CAD HTN by history Hyperlipidemia COPD , now intubated PLAN: 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
--- NOTE | 2022-03-24 09:37 | Progress Note - Hospitalist ---
Subjective HPI/CC On Admission Date Seen by Provider: Mar 24, 2022 Time Seen by Provider: 07:45 Patient is a 61-year-old -[place] male with past medical history of coronary artery disease, hypertension, hyperlipidemia,, COPD who presented to the emergency department due to hypoxia and chest pain. He was seen at the walk-in clinic at [facility] and complained of chest pain to them and he was referred to the emergency department. He has been seen in the ER multiple times in the past week or so but has declined most work-up at those visits. This visit he did allow for labs and x-ray which revealed an NSTEMI. He was admitted for further management. Unfortunately overnight his respiratory status worsened and he required intubation. He is unable to provide me any history due to this and thus all history was obtained from the records. Subjective/Events-last exam Patient sedated on mechanical ventilation no care problems reported per staff. Objective Exam Vital Signs Vital Signs Date Time Temp Pulse Resp B/P (MAP) Pulse Ox O2 Delivery O2 Flow Rate FiO2 03/24/22 09:00 66 25 93 Mechanical Ventilator 55.00 03/24/22 08:17 55 03/24/22 07:24 36.6 Capillary Refill : Less Than 3 Seconds General Appearance: No Apparent Distress Respiratory: Other (Very fine inspiratory wheeze chest otherwise clear) Cardiovascular: Regular Rate, Rhythm, No Murmur Gastrointestinal: Soft Extremity: No Pedal Edema Results/Procedures Lab Laboratory Tests 03/24/22 02:05 Patient resulted labs reviewed. Imaging: Reviewed Imaging Report Assessment/Plan Assessment and Plan Assess & Plan/Chief Complaint (1) COPD (chronic obstructive pulmonary disease) Status: 03/23/2022 Acute on chronic hypercapnic respiratory failure based on patient's first blood gas revealing that his pH was at the lower end of the normal range at 7.35 despite a CO2 level of 48. His sodium levels up to 149 so we will need to increase free water and initiate half-normal saline with 20 of KCl at 100/h and monitor. His abdomen is soft although bowel sounds remain hypoactive continue to hold tube feeding for now defer to surgery. Had discussion with family about poor prognosis. 2019 to 03/24/2022 over the last 24 hours O2 levels have been decreased from 80% to 55% and his PEEP was decreased from 10 to 8 mmHg current O2 saturation 93 to 94%. Continue weaning FiO2 as tolerated. Sodium level is unchanged at 149 despite initiating D5 half-normal saline at 100/h. Patient has no evidence for edema mucous membranes are still slightly dry will increase to 150 cc/hr. I have been told they are in the process of obtaining insurance which is likely been a factor in inability to transfer thus far. The patient is coming up on need for tracheostomy. Qualifiers: Qualified Codes: J44.0 - Chronic obstructive pulmonary disease with (acute) lower respiratory infection (2) Acute respiratory failure Status: Acute Qualifiers: Qualified Codes: J96.01 - Acute respiratory failure with hypoxia; J96.02 - Acute respiratory failure with hypercapnia (3) Morbid obesity Status: Chronic (4) NSTEMI (non-ST elevation myocardial infarction) Status: Acute (5) Acute HFrEF (heart failure with reduced ejection fraction) Status: Acute (6) CAD (coronary artery disease) Qualifiers: Qualified Codes: I25.10 - Atherosclerotic heart disease of [place] coronary artery without angina pectoris Critical Care Ventilator Management BRODERICK VILLEGAS MD Mar 24, 2022 09:37
[2022-03-24] MEDS: D5 1/2 NS W/KCL 20 MEQ/L 1,000 ML IV SCH ×3 (09:48→23:04)
[2022-03-24 11:26] VITALS: BP 130/59
[2022-03-24] MEDS: ENOXAPARIN 40 MG/0.4 ML (LOVENOX) SYR SQ SCH ×2 (11:40→23:04)
--- NOTE | 2022-03-24 12:23 | Progress Note - Surgery ---
MIOSANJUANA 03/24/22 1223: Subjective Date Seen by a Provider: Mar 24, 2022 Time Seen by a Provider: 10:05 Subjective/Events-last exam Pt is lying in bed sedated and on mechanical ventilation. Per nurse, pt was given an enema last night that yielded a large amount of stool but has not had a BM since. Pt was not given another enema overnight and is scheduled for one at 2pm today. Nurse states that last night there was 250ml in OG and today there was 300mL. On exam, pt's bowel sounds are absent. Family is bedside. Review of Systems unable to obtain due to pt sedation for mechanical ventilation Objective Exam Vital Signs Date Time Temp Pulse Resp B/P (MAP) Pulse Ox O2 Delivery O2 Flow Rate FiO2 03/24/22 12:00 65 94 Mechanical Ventilator 55.00 03/24/22 11:50 94 Mechanical Ventilator 55 03/24/22 11:49 55 03/24/22 11:42 67 136/60 03/24/22 11:42 67 136/60 03/24/22 11:26 36.1 03/24/22 11:26 66 26 93 55 03/24/22 11:00 67 26 93 Mechanical Ventilator 55.00 03/24/22 10:00 62 26 93 Mechanical Ventilator 55.00 03/24/22 09:00 66 25 93 Mechanical Ventilator 55.00 03/24/22 08:17 67 26 94 55 03/24/22 08:10 Mechanical Ventilator 55 03/24/22 08:00 68 26 99 Mechanical Ventilator 55.00 03/24/22 07:58 117/55 03/24/22 07:58 117/58 03/24/22 07:47 55 03/24/22 07:24 36.6 03/24/22 07:00 71 03/24/22 07:00 71 26 95 Mechanical Ventilator 55.00 03/24/22 06:00 67 22 97 Mechanical Ventilator 55.00 03/24/22 05:00 69 27 98 Mechanical Ventilator 55.00 03/24/22 04:00 95 Mechanical Ventilator 55 03/24/22 04:00 70 26 98 Mechanical Ventilator 55.00 03/24/22 04:00 55 03/24/22 03:00 69 26 98 Mechanical Ventilator 55.00 03/24/22 02:14 66 26 95 55 03/24/22 02:00 65 26 99 Mechanical Ventilator 55.00 03/24/22 01:00 70 03/24/22 01:00 68 26 98 Mechanical Ventilator 55.00 03/24/22 00:00 55 03/24/22 00:00 72 25 99 Mechanical Ventilator 55.00 03/23/22 23:59 95 Mechanical Ventilator 55 03/23/22 23:52 36.1 03/23/22 23:00 72 25 94 Mechanical Ventilator 55.00 03/23/22 22:05 70 26 94 55 03/23/22 22:00 65 26 95 Mechanical Ventilator 55.00 03/23/22 21:00 72 26 95 Mechanical Ventilator 55.00 03/23/22 20:00 79 28 96 Mechanical Ventilator 55.00 03/23/22 20:00 95 Mechanical Ventilator 55 03/23/22 20:00 55 03/23/22 19:32 36.6 03/23/22 19:16 69 26 95 55 03/23/22 19:00 64 03/23/22 19:00 64 27 94 Mechanical Ventilator 55.00 03/23/22 18:38 66 03/23/22 18:22 138/55 03/23/22 18:00 65 10 97 Mechanical Ventilator 55.00 03/23/22 17:32 67 120/50 03/23/22 17:00 77 17 95 Mechanical Ventilator 55.00 03/23/22 16:00 77 33 90 Mechanical Ventilator 55.00 03/23/22 16:00 Mechanical Ventilator 55 03/23/22 16:00 55 03/23/22 15:24 36.8 03/23/22 15:16 71 26 96 55 03/23/22 15:00 73 17 90 Mechanical Ventilator 55.00 03/23/22 14:00 71 95 Mechanical Ventilator 55.00 03/23/22 13:45 107/45 03/23/22 13:24 107/44 03/23/22 13:00 79 32 96 Mechanical Ventilator 55.00 03/23/22 12:58 79 I & O 03/24/22 07:00 Intake Total 1760 ml Output Total 3550 ml Balance -1790 ml Capillary Refill : Less Than 3 Seconds General Appearance: No Apparent Distress, Obese HEENT: Other (ET tube in place) Respiratory: No Accessory Muscle Use, No Respiratory Distress, Other (Very fine inspiratory wheeze chest, some faint crackles heard on R side diffusely ) Cardiovascular: Regular Rate, Rhythm, No Murmur Peripheral Pulses: 2+ Dorsalis Pedis (R), 2+ Left Dors-Pedis (L) Gastrointestinal: soft, abnormal bowel sounds (absent) Extremity: No Pedal Edema; No Inflammation Neurologic/Psychiatric: No Alert; Other (intubated and sedated) Skin: Normal Color, Warm/Dry Results Lab Laboratory Tests 03/23/22 17:16: Glucometer 123H 03/24/22 02:05: White Blood Count 7.3, Red Blood Count 3.59L, Hemoglobin 11.5L, Hematocrit 35L, Mean Corpuscular Volume 98, Mean Corpuscular Hemoglobin 32, Mean Corpuscular Hemoglobin Concent 33, Red Cell Distribution Width 15.1H, Platelet Count 395, Mean Platelet Volume 10.0, Immature Granulocyte % (Auto) 0, Neutrophils (%) (Auto) 54, Lymphocytes (%) (Auto) 27, Monocytes (%) (Auto) 16H, Eosinophils (%) (Auto) 1, Basophils (%) (Auto) 1, Neutrophils # (Auto) 3.9, Lymphocytes # (Auto) 2.0, Monocytes # (Auto) 1.2H, Eosinophils # (Auto) 0.1, Basophils # (Auto) 0.1, Immature Granulocyte # (Auto) 0.0, Sodium Level 149H, Potassium Level 3.2L, Chloride Level 108H, Carbon Dioxide Level 26, Anion Gap 15H, Blood Urea Nitrogen 37H, Creatinine 1.10, Estimat Glomerular Filtration Rate 76, BUN/Creatinine Ratio 34, Glucose Level 138H, Calcium Level 8.7, Magnesium Level 1.8, Triglycerides Level 123 03/24/22 11:33: Glucometer 151H Microbiology 03/13/22 MRSA Screen - Final, Complete MRSA not isolated 03/12/22 Blood Culture - Final, Complete No growth Assessment/Plan Assessment/Plan Assessment/Plan Ileus NSTEMI Respiratory failure Pt had enema yesterday with large amount of stool but has not had one since. Continue reglan and fleet enema; when significant BM and less NGT output then start TF's. GARCIA ASKEW DO 03/24/22 1254: Subjective Time Seen by a Provider: 12:16 Subjective/Events-last exam Pt seen and examined, no changes still intubated. He has not had another enema and no BM Review of Systems unable to obtain Objective Exam General Appearance: No Apparent Distress, Obese HEENT: Other (ET tube in place) Respiratory: No Accessory Muscle Use, No Respiratory Distress, Decreased Breath Sounds (B/L), Other (Very fine inspiratory wheeze chest, some faint crackles heard on R side diffusely ) Cardiovascular: Regular Rate, Rhythm, No Murmur Gastrointestinal: soft, abnormal bowel sounds (absent) Extremity: No Pedal Edema Neurologic/Psychiatric: Other (intubated and sedated) Assessment/Plan Assessment/Plan Assessment/Plan Ileus NSTEMI Respiratory failure Pt had enema yesterday with large amount of stool but has not had one since. Continue bowel regimen with reglan and fleet enema (seems to be working); when significant BM and less NGT output then start TF's. Supervisory-Addendum Brief Verification & Attestation Participated in pt care: history, MDM, physical Personally performed: exam, history, MDM, supervision of care Care discussed with: Medical Student Procedures: n/a Verification and Attestation of Medical Student E/M Service A medical student performed and documented this service. I then reviewed and verified all information documented by the medical student and made modifications to such information, when appropriate. I personally performed a physical exam, medical decision making and then discussed any differences between the notes and made revisions as necessary to create one note. Garcia Askew , 03/24/22 , 12:54 SANJUANA LIEBERMAN Mar 24, 2022 12:23 GARCIA ASKEW DO Mar 24, 2022 12:54
[2022-03-24 15:13] VITALS: BP 138/61
[2022-03-24 18:25] VITALS: BP 126/57
[2022-03-24] MEDS: NS IV 1000 ML 1,000 ML IV SCH (20:37)
[2022-03-24 21:33] VITALS: BP 132/60
[2022-03-25] VITALS (7 sets, daily range): BP systolic 100–133; BP diastolic 49–68
[2022-03-25] MEDS: PROPOFOL DRIP (ICU) 100 ML IV SCH ×6 (00:26→23:43)
[2022-03-25] MEDS: niCARdipine IV (Pyxis drip kit 50 MG in NS (IVPB) 230 ML IV SCH ×3 (01:59→23:30)
[2022-03-25] MEDS: RT-ALBUTEROL/IPRATROPIUM 3 ML (DUONEB) VIAL INH SCH ×6 (02:18→21:54)
[2022-03-25 02:44] LABS: BASOPHILS # (AUTO) 0.1 10^3/uL (0.0-0.1); BASOPHILS % (AUTO) 1 % (0-10); EOSINOPHILS # (AUTO) 0.2 10^3/uL (0.0-0.3); EOSINOPHILS % (AUTO) 3 % (0-10); HEMATOCRIT 36 % (40-54); HEMOGLOBIN 11.8 g/dL (13.3-17.7); LYMPHOCYTES # (AUTO) 1.5 10^3/uL (1.0-4.0); LYMPHOCYTES % (AUTO) 28 % (12-44); MEAN CORPUSCULAR HEMOGLOBIN 32 pg (25-34); MEAN CORPUSCULAR HGB CONC 33 g/dL (32-36); MEAN CORPUSCULAR VOLUME 97 fL (80-99); MEAN PLATELET VOLUME 9.8 fL (9.0-12.2); MONOCYTES # (AUTO) 0.7 10^3/uL (0.0-1.0); MONOCYTES % (AUTO) 14 % (0-12); NEUTROPHILS # (AUTO) 2.8 10^3/uL (1.8-7.8); NEUTROPHILS % (AUTO) 54 % (42-75); PLATELET COUNT 386 10^3/uL (130-400); WHITE BLOOD COUNT 5.3 10^3/uL (4.3-11.0)
[2022-03-25 03:00] LABS: CALCIUM 8.4 MG/DL (8.5-10.1); CREATININE SERUM 0.9 MG/DL (0.60-1.30); MAGNESIUM 1.6 MG/DL (1.6-2.4); PHOSPHORUS 2.8 MG/DL (2.3-4.7); POTASSIUM 3.2 MMOL/L (3.6-5.0)
[2022-03-25] MEDS: POTASSIUM CL 10MEQ/50ML IVPB 50 ML IV SCH ×5 (03:15→05:54)
[2022-03-25] MEDS: MAGNESIUM 1 GM/100 ML IVPB 100 ML IV SCH ×4 (03:16→06:13)
[2022-03-25] MEDS: KCL 20 MEQ TAB (K-DUR) PO SCH (03:22)
[2022-03-25] MEDS: FLEET ENEMA ADULT 1 EA BTL PR SCH ×3 (03:22→22:01)
[2022-03-25 04:02] LABS: ABG BASE EXCESS 6.4 MMOL/L (-2.5-2.5); ABG OXYGEN SATURATION 87 % (94-100); ABG PCO2 44 MMHG (35-45); ABG PH 7.45 (7.37-7.43); ABG PO2 53 MMHG (79-93); ABG TCO2 31.8 MMOL/L (21.0-31.0)
[2022-03-25 04:03] LABS: ALLENS TEST ARTLINE; INSPIRED O2 50%; PATIENT TEMP 37; VENTILATOR YES
[2022-03-25] MEDS: meTOprolol 5 MG/5 ML (LOPRESSOR) VIAL IV SCH ×4 (04:50→23:09)
[2022-03-25] MEDS: METOCLOPRAMIDE INJ 10 MG/2 ML (REGLAN) IVP SCH ×4 (05:16→23:09)
[2022-03-25] MEDS: D5 1/2 NS W/KCL 20 MEQ/L 1,000 ML IV SCH ×3 (05:23→18:58)
[2022-03-25] MEDS: FUROSEMIDE 40 MG/4 ML INJ (LASIX) IVP SCH ×2 (06:05→17:22)
[2022-03-25] MEDS: fentaNYL DRIP PRE-MIX 250 ML IV SCH ×2 (07:29→18:58)
[2022-03-25] MEDS: DexMEDEtomidine 250 ML DRIP 250 ML IV SCH ×3 (07:29→22:01)
[2022-03-25] MEDS: PANTOPRAZOLE 40 MG (PROTONIX) VIAL IV SCH (07:30)
[2022-03-25] MEDS: ENALAPRILAT 2.5 MG/2 ML (VASOTEC) VIAL IV SCH ×2 (07:30→21:04)
[2022-03-25] MEDS: CLOPIDOGREL 75 MG (PLAVIX) TABLET PO SCH (07:30)
[2022-03-25] MEDS: ASPIRIN 81 MG CHEW (CHILDREN'S ASA) PO SCH (07:30)
[2022-03-25] MEDS: LACRI-LUBE OPTHALMIC OINT 3.5 GM TUBE OU SCH ×3 (07:32→21:04)
--- NOTE | 2022-03-25 08:05 | Tele-ICU Progress Note ---
Subjective Date Seen by a Provider: Mar 25, 2022 Time Seen by a Provider: 08:00 Subjective/Events-last exam Remains intubated, has been extubated x 2, reintubated on 03/22 Vent is set at AC 26/Vt 500/FiO2 55%/ ABG 7.45/44/53 CXR was last done 03/22, showed increasing bilateral densities, will repeat today TF have been on hold due to large NG output Remains off IV nicardipine,On Lasix, albuterol, Lab Hb no change potassium low at 3.2 and magnesium 1.6, would replace Does not need much suctioning On IV Fentany @ 75l and Propofol @ 10, TG's 137, also on IV Precedex @ 0.8, on no pressors Can obey commands 3 pm, pt tried on sedation holiday but had to be put back due to anxiety, big rise in SBP to 200 Vent changed to AC 20, Vt 600, Peak Paw in 20'a Sepsis Event Evaluation Height, Weight, BMI Height: '" Weight: lbs. oz. kg; 47.67 BMI Method: Exam Exam Patient acknowledged, consented, and participated in this virtual visit which w as conducted using real time audio/video Vital Signs Date Time Temp Pulse Resp B/P (MAP) Pulse Ox O2 Delivery O2 Flow Rate FiO2 03/25/22 07:49 93 Mechanical Ventilator 50.00 03/25/22 07:42 50 03/25/22 07:31 62 98/61 03/25/22 07:30 62 106/63 03/25/22 07:29 62 108/64 03/25/22 07:29 62 107/63 03/25/22 07:02 61 26 95 50 03/25/22 06:00 61 26 95 Mechanical Ventilator 50.00 03/25/22 05:00 63 26 94 Mechanical Ventilator 50.00 03/25/22 04:00 50 03/25/22 04:00 94 Mechanical Ventilator 50 03/25/22 04:00 66 26 93 Mechanical Ventilator 50.00 03/25/22 03:25 64 111/53 03/25/22 03:00 64 26 98 Mechanical Ventilator 50.00 03/25/22 02:18 64 26 96 50 03/25/22 02:00 64 26 96 Mechanical Ventilator 50.00 03/25/22 01:00 66 03/25/22 01:00 66 26 95 Mechanical Ventilator 50.00 03/25/22 00:26 69 150/73 03/25/22 00:00 50 03/25/22 00:00 67 26 96 Mechanical Ventilator 50.00 03/24/22 23:59 95 Mechanical Ventilator 50 03/24/22 23:58 36.1 03/24/22 23:49 68 150/71 03/24/22 23:00 69 26 94 Mechanical Ventilator 50.00 03/24/22 22:00 68 26 91 Mechanical Ventilator 50.00 03/24/22 21:33 67 26 94 50 03/24/22 21:06 36.5 03/24/22 21:00 65 26 94 Mechanical Ventilator 50.00 03/24/22 20:01 67 26 91 Mechanical Ventilator 50.00 03/24/22 20:00 50 03/24/22 20:00 95 Mechanical Ventilator 50 03/24/22 19:27 36.3 03/24/22 19:00 65 26 91 Mechanical Ventilator 50.00 03/24/22 19:00 65 03/24/22 18:25 64 26 90 50 03/24/22 18:00 65 26 91 Mechanical Ventilator 50.00 03/24/22 17:00 66 26 93 Mechanical Ventilator 50.00 03/24/22 16:37 141/62 03/24/22 16:37 142/62 03/24/22 16:36 93 Mechanical Ventilator 50 03/24/22 16:36 141/63 03/24/22 16:35 141/62 03/24/22 16:00 67 26 94 Mechanical Ventilator 50.00 03/24/22 16:00 50 03/24/22 15:18 36.0 03/24/22 15:13 66 26 93 55 03/24/22 15:00 67 25 94 Mechanical Ventilator 50.00 03/24/22 14:44 93 Mechanical Ventilator 50.00 03/24/22 14:00 64 26 92 Mechanical Ventilator 55.00 03/24/22 13:00 63 93 Mechanical Ventilator 55.00 03/24/22 12:54 64 03/24/22 12:37 140/60 03/24/22 12:00 65 94 Mechanical Ventilator 55.00 03/24/22 11:50 94 Mechanical Ventilator 55 03/24/22 11:49 55 03/24/22 11:42 67 136/60 03/24/22 11:42 67 136/60 03/24/22 11:26 36.1 03/24/22 11:26 66 26 93 55 03/24/22 11:00 67 26 93 Mechanical Ventilator 55.00 03/24/22 10:00 62 26 93 Mechanical Ventilator 55.00 03/24/22 09:00 66 25 93 Mechanical Ventilator 55.00 03/24/22 08:17 67 26 94 55 03/24/22 08:10 Mechanical Ventilator 55 I & O 03/25/22 07:00 Intake Total 2115 ml Output Total 5125 ml Balance -3010 ml Height & Weight Height: '" Weight: lbs. oz. kg; 47.67 BMI Method: General Appearance: No Apparent Distress, Obese HEENT: Other (ET tube in place) Respiratory: No Accessory Muscle Use, No Respiratory Distress, Decreased Breath Sounds (B/L), Other (Very fine inspiratory wheeze chest, some faint crackles heard on R side diffusely ) Cardiovascular: Regular Rate, Rhythm, No Murmur Capillary Refill: Less Than 3 Seconds Peripheral Pulses: 2+ Dorsalis Pedis (R), 2+ Left Dors-Pedis (L) Gastrointestinal: non tender, soft, abnormal bowel sounds (absent), other (Bowel sounds are hypoactive) Extremity: No Pedal Edema Neurologic/Psychiatric: Other (intubated and sedated) Skin: Normal Color, Warm/Dry Results Lab Laboratory Tests 03/24/22 02:05 03/25/22 02:35 Assessment/Plan Assessment/Plan This is 4th day of intubation, will again try sedation holiday but does not look likely to come off vent soon due to morbid obesity, I suspect will need trach/PEG, may need to go to LTAC Na 147, getting free water Magnesium and potassium low, being repalced HTN-under control on TRUPTI, PRN labetolol and hydralzine, beta mj, Also lasix, 119/56 HLD ok NSTEMI/CAD, stable On DPT Surg has seen pt and trach/PEG most likely done tomorrow Critical Care: Ventilator Management Time spent with patient (mins): 25 CLAUDIO PAYNE MD Mar 25, 2022 08:05
--- NOTE | 2022-03-25 09:05 | Progress Note - Cardiology ---
Cardiology SOAP Progress Note Subjective: Remains intubated and sedated Objective: I&O/Vital Signs 03/25/22 03/25/22 03/25/22 03/25/22 21:00 21:54 22:00 22:00 Pulse 58 60 70 Resp 20 20 20 B/P (MAP) Pulse Ox 92 90 91 O2 Delivery Mechanical Ventilator Mechanical Ventilator Mechanical Ventilator O2 Flow Rate 60.00 70.00 70.00 FiO2 60 03/25/22 03/25/22 03/25/22 03/25/22 22:01 23:00 23:00 23:40 Pulse 71 71 78 70 Resp 20 B/P (MAP) 140/67 167/73 160/71 Pulse Ox 92 O2 Delivery Mechanical Ventilator O2 Flow Rate 70.00 03/25/22 03/25/22 03/26/22 03/26/22 23:43 23:59 00:00 00:00 Pulse 71 71 Resp 20 B/P (MAP) 140/67 Pulse Ox 94 92 O2 Delivery Mechanical Ventilator Mechanical Ventilator O2 Flow Rate 70.00 70.00 FiO2 70 03/26/22 03/26/22 03/26/22 03/26/22 01:00 01:00 02:00 02:01 Pulse 66 66 67 66 Resp 20 20 B/P (MAP) 149/69 Pulse Ox 93 95 O2 Delivery Mechanical Ventilator Mechanical Ventilator O2 Flow Rate 70.00 70.00 03/26/22 03/26/22 03/26/22 03/26/22 02:42 02:45 03:00 03:12 Temp 36.6 Pulse 65 59 65 64 Resp 20 20 20 B/P (MAP) 155/68 Pulse Ox 92 95 94 O2 Delivery Mechanical Ventilator Mechanical Ventilator O2 Flow Rate 70.00 70.00 FiO2 70 03/26/22 03/26/22 03/26/22 03/26/22 03:45 04:00 04:00 04:00 Pulse 65 62 Resp 20 B/P (MAP) 139/66 Pulse Ox 95 94 O2 Delivery Mechanical Ventilator Mechanical Ventilator O2 Flow Rate 70.00 70.00 FiO2 70 03/26/22 03/26/22 03/26/22 03/26/22 04:20 05:00 05:25 05:25 Pulse 65 62 65 65 Resp 20 B/P (MAP) 139/66 139/66 139/66 Pulse Ox 95 O2 Delivery Mechanical Ventilator O2 Flow Rate 70.00 03/26/22 03/26/22 03/26/22 03/26/22 06:00 06:30 06:45 07:00 Pulse 61 59 61 60 Resp 20 20 20 B/P (MAP) 139/66 Pulse Ox 95 95 94 O2 Delivery Mechanical Ventilator Mechanical Ventilator O2 Flow Rate 70.00 70.00 FiO2 70 03/26/22 03/26/22 03/26/22 03/26/22 07:00 07:59 08:00 08:30 Temp 36.5 Pulse 60 59 60 Resp 20 B/P (MAP) 137/68 Pulse Ox 95 O2 Delivery Mechanical Ventilator O2 Flow Rate 70.00 03/26/22 03/26/22 08:39 08:39 Pulse Ox 95 O2 Delivery Mechanical Ventilator FiO2 70 70 03/26/22 00:00 Intake Total 1450 ml Output Total 2375 ml Balance -925 ml Constitutional: other (Intubated, on mech vent, non-communicative) Respiratory: other (Intubated, on mech vent, non-communicative) Cardiovascular: regular rate-rhythm Gastrointestional: soft, round; No audible bowel sounds Extremities: no lower extremity edema bilateral Neurologic/Psychiatric: other (moves all limbs equally) Skin: No rash on exposed areas, No ulcerations on exposed areas Results/Procedures: Labs Laboratory Tests 03/25/22 12:00: Glucometer 165H 03/25/22 18:14: Glucometer 186H 03/25/22 23:35: Glucometer 142H 03/26/22 03:20: Blood Gas Puncture Site L ARTLINE, Blood Gas Patient Temperature 36.6, Arterial Blood pH 7.48H, Arterial Blood Partial Pressure CO2 38, Arterial Blood Partial Pressure O2 56L, Arterial Blood HCO3 28H, Arterial Blood Total CO2 29.6, Arterial Blood Oxygen Saturation 92L, Arterial Blood Base Excess 4.9H, Johnathon Test ARTLINE, Blood Gas Ventilator Setting YES, Blood Gas Inspired Oxygen 70% 03/26/22 04:37: White Blood Count 4.6, Red Blood Count 2.40L, Hemoglobin 8.5#L, Hematocrit 26L, Mean Corpuscular Volume 106H, Mean Corpuscular Hemoglobin 35H, Mean Corpuscular Hemoglobin Concent 33, Red Cell Distribution Width 15.3H, Platelet Count 226, Mean Platelet Volume 10.5, Immature Granulocyte % (Auto) 1, Neutrophils (%) (Auto) 60, Lymphocytes (%) (Auto) 25, Monocytes (%) (Auto) 11, Eosinophils (%) (Auto) 2, Basophils (%) (Auto) 1, Neutrophils # (Auto) 2.7, Lymphocytes # (Auto) 1.1, Monocytes # (Auto) 0.5, Eosinophils # (Auto) 0.1, Basophils # (Auto) 0.0, Immature Granulocyte # (Auto) 0.0 03/26/22 06:45: Sodium Level 144, Potassium Level 3.1L, Chloride Level 108H, Carbon Dioxide Level 27, Anion Gap 9, Blood Urea Nitrogen 19H, Creatinine 0.81, Estimat Glomerular Filtration Rate 100, BUN/Creatinine Ratio 23, Glucose Level 209H, Calcium Level 8.0L, Phosphorus Level 2.8, Magnesium Level 1.7, Triglycerides Level 141 Microbiology 03/13/22 MRSA Screen - Final, Complete MRSA not isolated 03/12/22 Blood Culture - Final, Complete No growth A/P: Assessment: Acute and prolonged resp failure requiring continuing mech vent - extubated on 03/17/22 and reintubated the same day Ac systolic CHF - echo on 03/12/22: LVEF 35-40%, mod diffuse hypokinesis of LV Minimal troponin elevation - Type 2 SD d/t hypoxia and transient hypotension CAD with stents x 2 - Family at the bedside reports he had stents done at [facility] in [place], [place] in Nov 2021 at which time he had an SD COPD per ED documentation - acute on chronic exacerbation Documented h/o HTN Renal insufficiency - undetermined length of time, likely chronic DM per ED documentation HLD per ED documentation Probable NATALIE - advise out pt w/u if this has not already been determined Morbid obesity - BMI approx 50 ?Ileus - management per surgical services Plan: * continue diuretics * Continue iv enalaprilat and beta-mj as tolerated by bp * Continue DAPT d/t CAD and family report of recent stent placement in [place] in November 2021 * Consider spironolactone and SGLT2-inhib when able to take oral meds * Sleep studies when able to * Continue DVT prophylaxis * Monitor labs closely * Consider transfer to a tertiary care facility due to continuing resp failure and mech vent FREDDY ERICKSON Mar 25, 2022 09:05
--- NOTE | 2022-03-25 11:00 | Progress Note - Hospitalist ---
Subjective HPI/CC On Admission Date Seen by Provider: Mar 25, 2022 Patient is a 61-year-old -[place]ish male with past medical history of coronary artery disease, hypertension, hyperlipidemia,, COPD who presented to the emergency department due to hypoxia and chest pain. He was seen at the walk-in clinic at [facility] and complained of chest pain to them and he was referred to the emergency department. He has been seen in the ER mul tiple times in the past week or so but has declined most work-up at those visits. This visit he did allow for labs and x-ray which revealed an NSTEMI. He was admitted for further management. Unfortunately overnight his respiratory status worsened and he required intubation. He is unable to provide me any history due to this and thus all history was obtained from the records. Subjective/Events-last exam Pt reports intubated and sedated. No family at bedside. I spoke with , Rona, today and updated her on status and plan going forward and that he will likely need trach and hopefully LTACH after that and then likely SNF following that. She was agreeable to this trajectory. She reports she is speaking with pt's daughter about this as well. Objective Exam Vital Signs Vital Signs Date Time Temp Pulse Resp B/P (MAP) Pulse Ox O2 Delivery O2 Flow Rate FiO2 03/25/22 13:00 65 28 97 Mechanical Ventilator 50.00 03/25/22 12:58 60 03/25/22 11:54 36.8 Capillary Refill : Less Than 3 Seconds General Appearance: Chronically ill, Obese HEENT: Other (ett) Respiratory: No Accessory Muscle Use, Other (on vent) Cardiovascular: Regular Rate, Rhythm, No Murmur Gastrointestinal: Normal Bowel Sounds, Non Tender, Soft Genital/Rectal: Other (hicks) Extremity: Normal Capillary Refill, No Pedal Edema Neurologic/Psychiatric: Alert (opened eyes briefly to voice, appears comfortable) Results/Procedures Lab Laboratory Tests 03/25/22 02:35 Patient resulted labs reviewed. Imaging: Reviewed Imaging Report Assessment/Plan Assessment and Plan Assess & Plan/Chief Complaint Acute hypercapnic and hypoxic respiratory failure COPD exacerbation with lower respiratory tract infection Intubated 03/12 and reintubated twice since then most recently being 03/22 TeleICU consulted for vent management- planing sedation vacation today- spoke with Dr Avila who recommends trach if he fails SBT today Completed course of abx Tube feeds to start when bowel function improves NSTEMI CAD HTN HLD Likely Type II due to above Cardiology consulted, appreciate recs ASA and Plavix BB and joshua-i when BP allows Echo with EF of 35% Ileus Surgery following Having BMs occasionally with enemas Will also discussed trach/peg placement with them DMII Sliding Scale Insulin DVT ppx Lovenox Critical Care Ventilator Management Diagnosis/Problems Diagnosis/Problems (1) Acute respiratory failure Status: Acute Qualifiers: Respiratory failure complication: hypoxia and hypercapnia Qualified Codes: J96.01 - Acute respiratory failure with hypoxia; J96.02 - Acute respiratory failure with hypercapnia (2) CAD (coronary artery disease) Qualifiers: Coronary Disease-Associated Artery/Lesion type: unspecified vessel or lesion type [place] vs. transplanted heart: unspecified whether [place] or transplanted heart Associated angina: unspecified whether angina present Qualified Codes: I25.10 - Atherosclerotic heart disease of [place] coronary artery without angina pectoris (3) COPD (chronic obstructive pulmonary disease) Status: Acute Qualifiers: COPD type: COPD with acute lower respiratory infection Qualified Codes: J44.0 - Chronic obstructive pulmonary disease with (acute) lower respiratory infection (4) Essential (primary) hypertension Status: Chronic (5) HLD (hyperlipidemia) Status: Chronic Qualifiers: Hyperlipidemia type: unspecified Qualified Codes: E78.5 - Hyperlipidemia, unspecified (6) COPD with acute bronchitis Status: Acute JAIRO MURILLO MD Mar 25, 2022 11:00
--- NOTE | 2022-03-25 11:13 | Diagnostic Imaging Report ---
INDICATION: Follow-up bilateral pneumonia. COMPARISON: 03/22/2022 FINDINGS: Single frontal radiograph view of the chest was obtained and demonstrates indwelling endotracheal tube with tip below the clavicular heads and above the alejandro. Gastric tube is obscured. Heart remains mildly prominent. Pulmonary vasculature is within normal limits. Lungs continue to show low inspiratory volumes with hazy opacification of both lung bases. There is no pneumothorax. Overall, aeration is slightly improved. IMPRESSION: 1. Overall improved aeration, but with persistent hazy opacifications in lung bases suggestive of potential effusion and/or atelectasis. 2. Mild cardiomegaly. Dictated by: Dictated on workstation # [id number]
[2022-03-25] MEDS: ENOXAPARIN 40 MG/0.4 ML (LOVENOX) SYR SQ SCH ×2 (11:53→23:09)
--- NOTE | 2022-03-25 15:07 | Progress Note - Cardiology ---
Cardiology SOAP Progress Note Subjective: Still intubated, on mech vent, unresponsive Objective: I&O/Vital Signs 03/25/22 03/25/22 03/25/22 03/25/22 03:25 04:00 04:00 04:00 Pulse 64 66 Resp 26 B/P (MAP) 111/53 Pulse Ox 93 94 O2 Delivery Mechanical Ventilator Mechanical Ventilator O2 Flow Rate 50.00 FiO2 50 50 03/25/22 03/25/22 03/25/22 03/25/22 05:00 06:00 07:00 07:02 Pulse 63 61 60 61 Resp 26 26 17 26 B/P (MAP) Pulse Ox 94 95 95 95 O2 Delivery Mechanical Ventilator Mechanical Ventilator Mechanical Ventilator O2 Flow Rate 50.00 50.00 50.00 FiO2 50 03/25/22 03/25/22 03/25/22 03/25/22 07:28 07:29 07:29 07:30 Pulse 62 62 62 62 B/P (MAP) 107/63 108/64 106/63 03/25/22 03/25/22 03/25/22 03/25/22 07:31 07:42 07:49 08:00 Temp 37.0 Pulse 62 B/P (MAP) 98/61 Pulse Ox 93 O2 Delivery Mechanical Ventilator O2 Flow Rate 50.00 FiO2 50 03/25/22 03/25/22 03/25/22 03/25/22 08:00 09:00 10:00 10:58 Pulse 62 62 60 60 Resp 28 24 26 B/P (MAP) Pulse Ox 93 94 93 93 O2 Delivery Mechanical Ventilator Mechanical Ventilator Mechanical Ventilator O2 Flow Rate 50.00 50.00 50.00 FiO2 50 03/25/22 03/25/22 03/25/22 03/25/22 11:00 11:47 11:54 11:54 Pulse 60 64 65 65 Resp 26 10 B/P (MAP) 136/62 136/62 Pulse Ox 93 94 O2 Delivery Mechanical Ventilator O2 Flow Rate 50.00 FiO2 50 03/25/22 03/25/22 03/25/22 03/25/22 11:54 12:00 12:00 12:46 Temp 36.8 Pulse 71 75 Resp 27 B/P (MAP) Pulse Ox 94 O2 Delivery Mechanical Ventilator O2 Flow Rate 50.00 FiO2 50 03/25/22 03/25/22 03/25/22 03/25/22 12:58 13:00 14:44 14:58 Pulse 65 60 62 Resp 28 20 B/P (MAP) 117/59 Pulse Ox 93 97 97 O2 Delivery Mechanical Ventilator Mechanical Ventilator O2 Flow Rate 50.00 FiO2 60 60 03/25/22 00:00 Intake Total 1370 ml Output Total 3325 ml Balance -1955 ml Constitutional: other (Intubated, on mech vent, non-communicative) Respiratory: other (Intubated, on mech vent, non-communicative) Cardiovascular: regular rate-rhythm Gastrointestional: soft, round; No audible bowel sounds Extremities: no lower extremity edema bilateral Neurologic/Psychiatric: other (moves all limbs equally) Skin: No rash on exposed areas, No ulcerations on exposed areas Results/Procedures: Labs Laboratory Tests 03/24/22 17:18: Glucometer 176H 03/24/22 23:54: Glucometer 154H 03/25/22 02:35: White Blood Count 5.3, Red Blood Count 3.69L, Hemoglobin 11.8L, Hematocrit 36L, Mean Corpuscular Volume 97, Mean Corpuscular Hemoglobin 32, Mean Corpuscular Hemoglobin Concent 33, Red Cell Distribution Width 14.6H, Platelet Count 386, Mean Platelet Volume 9.8, Immature Granulocyte % (Auto) 1, Neutrophils (%) (Auto) 54, Lymphocytes (%) (Auto) 28, Monocytes (%) (Auto) 14H, Eosinophils (%) (Auto) 3, Basophils (%) (Auto) 1, Neutrophils # (Auto) 2.8, Lymphocytes # (Auto) 1.5, Monocytes # (Auto) 0.7, Eosinophils # (Auto) 0.2, Basophils # (Auto) 0.1, Immature Granulocyte # (Auto) 0.0, Blood Gas Puncture Site ARTLINE, Blood Gas Patient Temperature 37, Arterial Blood pH 7.45H, Arterial Blood Partial Pressure CO2 44, Arterial Blood Partial Pressure O2 53L, Arterial Blood HCO3 30H, Arterial Blood Total CO2 31.8H, Arterial Blood Oxygen Saturation 87L, Arterial Blood Base Excess 6.4H, Johnathon Test ARTLINE, Blood Gas Ventilator Setting YES, Blood Gas Inspired Oxygen 50%, Sodium Level 147H, Potassium Level 3.2L, Chloride Level 109H, Carbon Dioxide Level 26, Anion Gap 12, Blood Urea Nitrogen 28H, Creatinine 0.90, Estimat Glomerular Filtration Rate 97, BUN/Creatinine Ratio 31, Glucose Level 193H, Calcium Level 8.4L, Phosphorus Level 2.8, Magnesium Level 1.6, Triglycerides Level 137 03/25/22 12:00: Glucometer 165H Microbiology 03/13/22 MRSA Screen - Final, Complete MRSA not isolated 03/12/22 Blood Culture - Final, Complete No growth Laboratory Tests 03/24/22 02:05 03/25/22 02:35 A/P: Assessment: Acute and prolonged resp failure requiring continuing mech vent - extubated on 03/17/22 and reintubated the same day Ac systolic CHF - echo on 03/12/22: LVEF 35-40%, mod diffuse hypokinesis of LV Minimal troponin elevation - Type 2 [place] d/t hypoxia and transient hypotension CAD with stents x 2 - Family at the bedside reports he had stents done at [facility] in [place], [place] in Nov 2021 at which time he had an VA COPD per ED documentation - acute on chronic exacerbation Documented h/o HTN Renal insufficiency at presentation - resolved with hydration DM per ED documentation HLD per ED documentation Probable NATALIE - advise out pt w/u if he recovers from his current resp failure Morbid obesity - BMI approx 50 Plan: * continue diuretics * Continue iv enalaprilat and beta-mj as tolerated by bp * Continue DAPT d/t CAD and family report of recent stent placement in [place] in November 2021 * Consider spironolactone and SGLT2-inhib when able to take oral meds * Sleep studies when able to * Continue DVT prophylaxis * Monitor labs closely * Prognosis appears increasingly poor, given continuing resp failure that is unresponsive to treatment * Consider transfer to a tertiary care facility due to continuing resp failure and mech vent NERISSA GARCIA MD FACP [facility] Mar 25, 2022 15:07
--- NOTE | 2022-03-25 15:47 | Progress Note ---
Subjective Date Seen by a Provider: Mar 25, 2022 Time Seen by a Provider: 15:30 Subjective/Events-last exam failed extubation x2. on vent/sedated. ileus resolved. has been intubated now for about 2 weeks. Objective Exam Vital Signs Date Time Temp Pulse Resp B/P (MAP) Pulse Ox O2 Delivery O2 Flow Rate FiO2 03/25/22 15:00 61 36 95 Mechanical Ventilator 50.00 03/25/22 14:58 62 117/59 03/25/22 14:44 60 20 97 60 03/25/22 14:00 61 20 98 Mechanical Ventilator 50.00 03/25/22 13:00 65 28 97 Mechanical Ventilator 50.00 03/25/22 12:58 93 Mechanical Ventilator 60 03/25/22 12:46 75 03/25/22 12:00 50 03/25/22 12:00 71 27 94 Mechanical Ventilator 50.00 03/25/22 11:54 36.8 03/25/22 11:54 65 136/62 03/25/22 11:54 65 136/62 03/25/22 11:47 64 10 94 50 03/25/22 11:00 60 26 93 Mechanical Ventilator 50.00 03/25/22 10:58 60 26 93 50 03/25/22 10:00 60 24 93 Mechanical Ventilator 50.00 03/25/22 09:00 62 28 94 Mechanical Ventilator 50.00 03/25/22 08:00 62 26 93 Mechanical Ventilator 50.00 03/25/22 08:00 37.0 03/25/22 07:49 93 Mechanical Ventilator 50.00 03/25/22 07:42 50 03/25/22 07:31 62 98/61 03/25/22 07:30 62 106/63 03/25/22 07:29 62 108/64 03/25/22 07:29 62 107/63 03/25/22 07:28 62 03/25/22 07:02 61 26 95 50 03/25/22 07:00 60 17 95 Mechanical Ventilator 50.00 03/25/22 06:00 61 26 95 Mechanical Ventilator 50.00 03/25/22 05:00 63 26 94 Mechanical Ventilator 50.00 03/25/22 04:00 50 03/25/22 04:00 94 Mechanical Ventilator 50 03/25/22 04:00 66 26 93 Mechanical Ventilator 50.00 03/25/22 03:25 64 111/53 03/25/22 03:00 64 26 98 Mechanical Ventilator 50.00 03/25/22 02:18 64 26 96 50 03/25/22 02:00 64 26 96 Mechanical Ventilator 50.00 03/25/22 01:00 66 03/25/22 01:00 66 26 95 Mechanical Ventilator 50.00 03/25/22 00:26 69 150/73 03/25/22 00:00 50 03/25/22 00:00 67 26 96 Mechanical Ventilator 50.00 03/24/22 23:59 95 Mechanical Ventilator 50 03/24/22 23:58 36.1 03/24/22 23:49 68 150/71 03/24/22 23:00 69 26 94 Mechanical Ventilator 50.00 03/24/22 22:00 68 26 91 Mechanical Ventilator 50.00 03/24/22 21:33 67 26 94 50 03/24/22 21:06 36.5 03/24/22 21:00 65 26 94 Mechanical Ventilator 50.00 03/24/22 20:01 67 26 91 Mechanical Ventilator 50.00 03/24/22 20:00 50 03/24/22 20:00 95 Mechanical Ventilator 50 03/24/22 19:27 36.3 03/24/22 19:00 65 26 91 Mechanical Ventilator 50.00 03/24/22 19:00 65 03/24/22 18:25 64 26 90 50 03/24/22 18:00 65 26 91 Mechanical Ventilator 50.00 03/24/22 17:00 66 26 93 Mechanical Ventilator 50.00 03/24/22 16:37 141/62 03/24/22 16:37 142/62 03/24/22 16:36 93 Mechanical Ventilator 50 03/24/22 16:36 141/63 03/24/22 16:35 141/62 03/24/22 16:00 67 26 94 Mechanical Ventilator 50.00 03/24/22 16:00 50 I & O 03/25/22 07:00 Intake Total 2115 ml Output Total 5125 ml Balance -3010 ml Capillary Refill : Less Than 3 Seconds General Appearance: No Apparent Distress HEENT: TMs Normal Neck: Full Range of Motion, Supple Respiratory: Decreased Breath Sounds, Rhonci Cardiovascular: Regular Rate, Rhythm Gastrointestinal: normal bowel sounds, non tender, soft Extremity: Normal Capillary Refill Neurologic/Psychiatric: Other (vent/sedated) Skin: Normal Color Lymphatic: No Adenopathy Results Lab Laboratory Tests 03/24/22 17:18: Glucometer 176H 03/24/22 23:54: Glucometer 154H 03/25/22 02:35: White Blood Count 5.3, Red Blood Count 3.69L, Hemoglobin 11.8L, Hematocrit 36L, Mean Corpuscular Volume 97, Mean Corpuscular Hemoglobin 32, Mean Corpuscular Hemoglobin Concent 33, Red Cell Distribution Width 14.6H, Platelet Count 386, Mean Platelet Volume 9.8, Immature Granulocyte % (Auto) 1, Neutrophils (%) (Auto) 54, Lymphocytes (%) (Auto) 28, Monocytes (%) (Auto) 14H, Eosinophils (%) (Auto) 3, Basophils (%) (Auto) 1, Neutrophils # (Auto) 2.8, Lymphocytes # (Auto) 1.5, Monocytes # (Auto) 0.7, Eosinophils # (Auto) 0.2, Basophils # (Auto) 0.1, Immature Granulocyte # (Auto) 0.0, Blood Gas Puncture Site ARTLINE, Blood Gas Patient Temperature 37, Arterial Blood pH 7.45H, Arterial Blood Partial Pressure CO2 44, Arterial Blood Partial Pressure O2 53L, Arterial Blood HCO3 30H, Arterial Blood Total CO2 31.8H, Arterial Blood Oxygen Saturation 87L, Arterial Blood Base Excess 6.4H, Johnathon Test ARTLINE, Blood Gas Ventilator Setting YES, Blood Gas Inspired Oxygen 50%, Sodium Level 147H, Potassium Level 3.2L, Chloride Level 109H, Carbon Dioxide Level 26, Anion Gap 12, Blood Urea Nitrogen 28H, Creatinine 0.90, Estimat Glomerular Filtration Rate 97, BUN/Creatinine Ratio 31, Glucose Level 193H, Calcium Level 8.4L, Phosphorus Level 2.8, Magnesium Level 1.6, Triglycerides Level 137 03/25/22 12:00: Glucometer 165H Microbiology 03/13/22 MRSA Screen - Final, Complete MRSA not isolated 03/12/22 Blood Culture - Final, Complete No growth Assessment/Plan Assessment/Plan Assess & Plan/Chief Complaint on vent sedated with NSTEMI and respiratory failure with ileus filed multiple extubation attempts and now intubated for 2 weeks. will plan for tracheostomy and PEG placement for tomorrow. ANALIA SALAZAR MD Mar 25, 2022 15:47
[2022-03-25] MEDS: hydrALAZINE (APESOLINE) 20 MG/ML VIAL IV PRN (22:28)
[2022-03-25] MEDS: NS IV 1000 ML 1,000 ML IV SCH (22:46)
[2022-03-25] MEDS: LABETALOL HCL 20 MG/4 ML VIAL IV PRN (23:54)
[2022-03-26] MEDS: D5 1/2 NS W/KCL 20 MEQ/L 1,000 ML IV SCH ×3 (01:32→17:33)
[2022-03-26] MEDS: PROPOFOL DRIP (ICU) 100 ML IV SCH ×7 (02:42→21:38)
[2022-03-26 02:45] VITALS: BP 114/55
[2022-03-26] MEDS: RT-ALBUTEROL/IPRATROPIUM 3 ML (DUONEB) VIAL INH SCH ×6 (02:45→22:02)
[2022-03-26 03:32] LABS: ABG BASE EXCESS 4.9 MMOL/L (-2.5-2.5); ABG OXYGEN SATURATION 92 % (94-100); ABG PCO2 38 MMHG (35-45); ABG PH 7.48 (7.37-7.43); ABG PO2 56 MMHG (79-93); ABG TCO2 29.6 MMOL/L (21.0-31.0)
[2022-03-26 03:34] LABS: BASOPHILS % (AUTO) 1 % (0-10); EOSINOPHILS # (AUTO) 0.1 10^3/uL (0.0-0.3); EOSINOPHILS % (AUTO) 2 % (0-10); HEMATOCRIT 26 % (40-54); HEMOGLOBIN 8.5 g/dL (13.3-17.7); LYMPHOCYTES # (AUTO) 1.1 10^3/uL (1.0-4.0); LYMPHOCYTES % (AUTO) 25 % (12-44); MEAN CORPUSCULAR HEMOGLOBIN 35 pg (25-34); MEAN CORPUSCULAR HGB CONC 33 g/dL (32-36); MEAN CORPUSCULAR VOLUME 106 fL (80-99); MEAN PLATELET VOLUME 10.5 fL (9.0-12.2); MONOCYTES # (AUTO) 0.5 10^3/uL (0.0-1.0); MONOCYTES % (AUTO) 11 % (0-12); NEUTROPHILS # (AUTO) 2.7 10^3/uL (1.8-7.8); NEUTROPHILS % (AUTO) 60 % (42-75); PLATELET COUNT 226 10^3/uL (130-400); WHITE BLOOD COUNT 4.6 10^3/uL (4.3-11.0)
[2022-03-26 03:35] LABS: ALLENS TEST ARTLINE
[2022-03-26 03:36] LABS: INSPIRED O2 70%; PATIENT TEMP 36.6; VENTILATOR YES
[2022-03-26] MEDS: fentaNYL DRIP PRE-MIX 250 ML IV SCH ×3 (04:20→22:30)
[2022-03-26] MEDS: DexMEDEtomidine 250 ML DRIP 250 ML IV SCH ×4 (05:25→23:38)
[2022-03-26 06:30] VITALS: BP 103/59
[2022-03-26] MEDS: meTOprolol 5 MG/5 ML (LOPRESSOR) VIAL IV SCH ×4 (06:30→23:45)
[2022-03-26 07:17] LABS: CREATININE SERUM 0.81 MG/DL (0.60-1.30); MAGNESIUM 1.7 MG/DL (1.6-2.4); PHOSPHORUS 2.8 MG/DL (2.3-4.7); POTASSIUM 3.1 MMOL/L (3.6-5.0)
[2022-03-26] MEDS: METOCLOPRAMIDE INJ 10 MG/2 ML (REGLAN) IVP SCH ×4 (07:17→23:45)
[2022-03-26] MEDS: LACRI-LUBE OPTHALMIC OINT 3.5 GM TUBE OU SCH ×3 (08:26→20:04)
[2022-03-26] MEDS: PANTOPRAZOLE 40 MG (PROTONIX) VIAL IV SCH (08:26)
[2022-03-26] MEDS: ASPIRIN 81 MG CHEW (CHILDREN'S ASA) PO SCH (08:26)
[2022-03-26] MEDS: CLOPIDOGREL 75 MG (PLAVIX) TABLET PO SCH (08:27)
[2022-03-26] MEDS: FLEET ENEMA ADULT 1 EA BTL PR SCH ×3 (08:31→22:11)
[2022-03-26] MEDS: KCL 20 MEQ TAB (K-DUR) PO SCH (08:32)
[2022-03-26] MEDS: POTASSIUM CL 10MEQ/50ML IVPB 50 ML IV SCH ×3 (08:37→09:45)
[2022-03-26] MEDS: FUROSEMIDE 40 MG/4 ML INJ (LASIX) IVP SCH ×2 (08:49→17:56)
--- NOTE | 2022-03-26 09:00 | Progress Note - Cardiology ---
Cardiology SOAP Progress Note Subjective: Remains intubated and sedated Objective: I&O/Vital Signs 03/26/22 03/26/22 03/26/22 03/26/22 21:38 22:02 22:04 22:30 Pulse 70 71 68 77 Resp 20 20 B/P (MAP) 134/60 149/58 Pulse Ox 96 92 O2 Delivery Mechanical Ventilator O2 Flow Rate 65.00 FiO2 65 03/26/22 03/26/22 03/26/22 03/26/22 23:00 23:38 23:56 23:59 Pulse 75 77 77 Resp 20 B/P (MAP) 149/58 149/58 Pulse Ox 95 96 O2 Delivery Mechanical Ventilator Mechanical Ventilator O2 Flow Rate 65.00 FiO2 65 03/27/22 03/27/22 03/27/22 03/27/22 00:00 00:00 00:01 01:00 Temp 36.9 Pulse 70 69 Resp 20 20 B/P (MAP) Pulse Ox 95 95 O2 Delivery Mechanical Ventilator Mechanical Ventilator Mechanical Ventilator O2 Flow Rate 65.00 65.00 65.00 FiO2 65 03/27/22 03/27/22 03/27/22 03/27/22 01:00 01:40 01:56 02:00 Pulse 70 69 69 66 Resp 20 B/P (MAP) 149/58 149/58 Pulse Ox 95 O2 Delivery Mechanical Ventilator O2 Flow Rate 65.00 03/27/22 03/27/22 03/27/22 03/27/22 02:35 02:39 03:00 03:40 Pulse 72 71 75 72 Resp 20 20 B/P (MAP) 127/56 127/56 Pulse Ox 95 96 O2 Delivery Mechanical Ventilator O2 Flow Rate 65.00 FiO2 65 03/27/22 03/27/22 03/27/22 03/27/22 03:42 03:46 04:00 04:00 Temp 37.0 Pulse 72 70 Resp 20 B/P (MAP) 127/56 Pulse Ox 96 O2 Delivery Mechanical Ventilator O2 Flow Rate 65.00 FiO2 65 03/27/22 03/27/22 03/27/22 03/27/22 04:00 05:00 06:00 06:10 Pulse 69 69 64 Resp 20 20 B/P (MAP) 127/56 Pulse Ox 95 96 96 O2 Delivery Mechanical Ventilator Mechanical Ventilator Mechanical Ventilator O2 Flow Rate 65.00 65.00 FiO2 65 03/27/22 03/27/22 03/27/22 03/27/22 06:12 06:37 06:53 07:58 Pulse 69 64 64 Resp 20 B/P (MAP) 127/56 111/54 Pulse Ox 96 97 O2 Delivery Mechanical Ventilator FiO2 65 65 03/27/22 03/27/22 03/27/22 07:59 08:00 08:06 Temp 36.9 Pulse 63 B/P (MAP) 106/51 FiO2 65 03/27/22 00:00 Intake Total 1750 ml Output Total 2850 ml Balance -1100 ml Constitutional: other (Intubated, on mech vent, non-communicative) Respiratory: other (Intubated, on mech vent, non-communicative) Cardiovascular: regular rate-rhythm Gastrointestional: soft, round; No audible bowel sounds Extremities: no lower extremity edema bilateral Neurologic/Psychiatric: other (moves all limbs equally) Skin: No rash on exposed areas, No ulcerations on exposed areas Results/Procedures: Labs Laboratory Tests 03/26/22 11:54: Glucometer 157H 03/26/22 17:30: White Blood Count 6.9, Red Blood Count 3.87L, Hemoglobin 12.2#L, Hematocrit 38L, Mean Corpuscular Volume 97, Mean Corpuscular Hemoglobin 32, Mean Corpuscular Hemoglobin Concent 32, Red Cell Distribution Width 14.6H, Platelet Count 326, Mean Platelet Volume 10.1, Sodium Level 144, Potassium Level 3.7, Chloride Level 107, Carbon Dioxide Level 27, Anion Gap 10, Blood Urea Nitrogen 20H, Creatinine 0.98, Estimat Glomerular Filtration Rate 88, BUN/Creatinine Ratio 20, Glucose Level 185H, Calcium Level 8.2L 03/26/22 18:00: Glucometer 145H 03/27/22 01:44: Glucometer 202H 03/27/22 03:55: White Blood Count 6.2, Red Blood Count 3.67L, Hemoglobin 11.6L, Hematocrit 36L, Mean Corpuscular Volume 97, Mean Corpuscular Hemoglobin 32, Mean Corpuscular Hemoglobin Concent 33, Red Cell Distribution Width 14.6H, Platelet Count 319, Mean Platelet Volume 10.1, Immature Granulocyte % (Auto) 1, Neutrophils (%) (Auto) 61, Lymphocytes (%) (Auto) 26, Monocytes (%) (Auto) 11, Eosinophils (%) (Auto) 2, Basophils (%) (Auto) 1, Neutrophils # (Auto) 3.8, Lymphocytes # (Auto) 1.6, Monocytes # (Auto) 0.7, Eosinophils # (Auto) 0.1, Basophils # (Auto) 0.0, Immature Granulocyte # (Auto) 0.0, Blood Gas Puncture Site L ARTLINE, Blood Gas Patient Temperature 37, Arterial Blood pH 7.42, Arterial Blood Partial Pressure CO2 45, Arterial Blood Partial Pressure O2 56L, Arterial Blood HCO3 29H, Arterial Blood Total CO2 29.9, Arterial Blood Oxygen Saturation 89L, Arterial Blood Base Excess 4.3H, Johnathon Test ARTLINE, Blood Gas Ventilator Setting YES, Blood Gas Inspired Oxygen 65%, Sodium Level 144, Potassium Level 3.6, Chloride Level 108H, Carbon Dioxide Level 25, Anion Gap 11, Blood Urea Nitrogen 24H, Creatinine 0.96, Estimat Glomerular Filtration Rate 90, BUN/Creatinine Ratio 25, Glucose Level 230H, Calcium Level 8.2L, Phosphorus Level 3.9, Magnesium Level 1.7, Triglycerides Level 106 03/27/22 06:48: Glucometer 229H Microbiology 03/13/22 MRSA Screen - Final, Complete MRSA not isolated 03/12/22 Blood Culture - Final, Complete No growth A/P: Assessment: Acute and prolonged resp failure requiring continuing mech vent - extubated on 03/17/22 and reintubated the same day Ac systolic CHF - echo on 03/12/22: LVEF 35-40%, mod diffuse hypokinesis of LV Minimal troponin elevation - Type 2 [place] d/t hypoxia and transient hypotension CAD with stents x 2 - Family at the bedside reports he had stents done at [facility] in [place], [place] in Nov 2021 at which time he had an [place] COPD per ED documentation - acute on chronic exacerbation Documented h/o HTN Renal insufficiency at presentation - resolved with hydration DM per ED documentation HLD per ED documentation Probable NATALIE - advise out pt w/u if he recovers from his current resp failure Morbid obesity - BMI approx 50 Plan: * continue diuretics * Continue iv enalaprilat and beta-mj as tolerated by bp * Continue DAPT d/t CAD and family report of recent stent placement in [place] in November 2021 * Consider spironolactone and SGLT2-inhib when able to take oral meds * Sleep studies when able to * Continue DVT prophylaxis * Monitor labs closely * Prognosis appears increasingly poor, given continuing resp failure that is unresponsive to treatment - plan is for trach and PEG placement today * Consider transfer to a tertiary care facility due to continuing resp failure and mech vent FREDDY ERICKSON Mar 26, 2022 09:00
[2022-03-26] MEDS: ENALAPRILAT 2.5 MG/2 ML (VASOTEC) VIAL IV SCH ×2 (09:45→20:04)
[2022-03-26] MEDS: niCARdipine IV (Pyxis drip kit 50 MG in NS (IVPB) 230 ML IV SCH ×2 (09:46→19:30)
--- NOTE | 2022-03-26 09:55 | Progress Note - Hospitalist ---
Subjective HPI/CC On Admission Date Seen by Provider: Mar 26, 2022 Patient is a 61-year-old -[place] male with past medical history of coronary artery disease, hypertension, hyperlipidemia,, COPD who presented to the emergency department due to hypoxia and chest pain. He was seen at the walk-in clinic at [facility] and complained of chest pain to them and he was referred to the emergency department. He has been seen in the ER mul tiple times in the past week or so but has declined most work-up at those visits. This visit he did allow for labs and x-ray which revealed an NSTEMI. He was admitted for further management. Unfortunately overnight his respiratory status worsened and he required intubation. He is unable to provide me any history due to this and thus all history was obtained from the records. Subjective/Events-last exam Pt remains sedated on the vent. No ROS possible. RN reports no needs. Objective Exam Vital Signs Vital Signs Date Time Temp Pulse Resp B/P (MAP) Pulse Ox O2 Delivery O2 Flow Rate FiO2 03/26/22 09:00 59 21 96 Mechanical Ventilator 70.00 03/26/22 08:39 70 03/26/22 07:59 36.5 Capillary Refill : Less Than 3 Seconds General Appearance: Chronically ill, Other (sedated on vent) HEENT: Other (ett in place) Respiratory: No Crackles; Decreased Breath Sounds, Other Cardiovascular: Regular Rate, Rhythm, No Murmur Extremity: Pedal Edema Neurologic/Psychiatric: Other (sedated appears comfortable) Results/Procedures Lab Laboratory Tests 03/26/22 04:37 03/26/22 06:45 Patient resulted labs reviewed. Imaging: Reviewed Imaging Report Assessment/Plan Assessment and Plan Assess & Plan/Chief Complaint Acute hypercapnic and hypoxic respiratory failure COPD exacerbation with lower respiratory tract infection Intubated 03/12 and reintubated twice since then most recently being 03/22 TeleICU consulted for vent management Failed extubation twice and SBT yesterday Planning for trach/peg tomorrow Completed course of abx Tube feeds to start when bowel function improves Will start TPN today as that is likely a few days out still NSTEMI CAD HTN HLD Likely Type II due to above Cardiology consulted, appreciate recs ASA and Plavix BB and joshua-i Echo with EF of 35% Ileus Surgery following Last BM 03/23 Will also discussed trach/peg placement with them DMII Sliding Scale Insulin DVT ppx Lovenox Critical Care Ventilator Management Diagnosis/Problems Diagnosis/Problems (1) Acute respiratory failure Status: Acute Qualifiers: Respiratory failure complication: hypoxia and hypercapnia Qualified Codes: J96.01 - Acute respiratory failure with hypoxia; J96.02 - Acute respiratory failure with hypercapnia (2) CAD (coronary artery disease) Qualifiers: Coronary Disease-Associated Artery/Lesion type: unspecified vessel or lesion type [place] vs. transplanted heart: unspecified whether [place] or transplanted heart Associated angina: unspecified whether angina present Qualified Codes: I25.10 - Atherosclerotic heart disease of [place] coronary artery without angina pectoris (3) COPD (chronic obstructive pulmonary disease) Status: Acute Qualifiers: COPD type: COPD with acute lower respiratory infection Qualified Codes: J44.0 - Chronic obstructive pulmonary disease with (acute) lower respiratory infection (4) Essential (primary) hypertension Status: Chronic (5) HLD (hyperlipidemia) Status: Chronic Qualifiers: Hyperlipidemia type: unspecified Qualified Codes: E78.5 - Hyperlipidemia, unspecified (6) COPD with acute bronchitis Status: Acute JAIRO MURILLO MD Mar 26, 2022 09:54
[2022-03-26] MEDS ORDERED: TPN IV SCH (10:00)
[2022-03-26] MEDS ORDERED: LACTATED RINGERS 1,000 ML IV PRN (10:15)
[2022-03-26 10:30] VITALS: BP 134/73
[2022-03-26] MEDS ORDERED: BUP/EPI 0.25% 1:200,000 (MARCAINE) 30 ML VIAL ONE (10:30)
[2022-03-26] MEDS ORDERED: BUP/EPI 0.25% 1:200,000 (MARCAINE) 30 ML VIAL INJ ONE (11:00)
[2022-03-26] MEDS ORDERED: MIDAZOLAM 2 MG/2 ML (VERSED) VIAL ONE ×3 (11:50→13:39)
--- NOTE | 2022-03-26 11:59 | Progress Note-Pre Operative ---
Pre-Operative Progress Note Date of Available H&P: Mar 26, 2022 Date H&P Reviewed: Mar 26, 2022 Time H&P Reviewed: 11:30 History & Physical: No changes noted Pre-Operative Diagnosis: respiratory failure, COPD ANALIA SALAZAR MD Mar 26, 2022 11:59
[2022-03-26] MEDS: ENOXAPARIN 40 MG/0.4 ML (LOVENOX) SYR SQ SCH ×2 (12:03→23:49)
--- NOTE | 2022-03-26 12:03 | Progress Note ---
Subjective Date Seen by a Provider: Mar 26, 2022 Time Seen by a Provider: 11:30 Subjective/Events-last exam on vent/sedated. VSS. multiple failed vent weening attempts. Objective Exam Vital Signs Date Time Temp Pulse Resp B/P (MAP) Pulse Ox O2 Delivery O2 Flow Rate FiO2 03/26/22 11:29 97 Mechanical Ventilator 65.00 03/26/22 11:00 62 20 97 Mechanical Ventilator 70.00 03/26/22 10:30 64 20 97 65 03/26/22 10:00 61 20 96 Mechanical Ventilator 70.00 03/26/22 09:00 59 21 96 Mechanical Ventilator 70.00 03/26/22 08:39 95 Mechanical Ventilator 70 03/26/22 08:39 70 03/26/22 08:30 60 137/68 03/26/22 08:00 59 20 95 Mechanical Ventilator 70.00 03/26/22 07:59 36.5 03/26/22 07:00 60 03/26/22 07:00 60 20 94 Mechanical Ventilator 70.00 03/26/22 06:45 61 139/66 03/26/22 06:30 59 20 95 70 03/26/22 06:00 61 20 95 Mechanical Ventilator 70.00 03/26/22 05:25 65 139/66 03/26/22 05:25 65 139/66 03/26/22 05:00 62 20 95 Mechanical Ventilator 70.00 03/26/22 04:20 65 139/66 03/26/22 04:00 94 Mechanical Ventilator 70.00 03/26/22 04:00 70 03/26/22 04:00 62 20 95 Mechanical Ventilator 70.00 03/26/22 03:45 65 139/66 03/26/22 03:12 36.6 64 20 94 Mechanical Ventilator 70.00 03/26/22 03:00 65 20 95 Mechanical Ventilator 70.00 03/26/22 02:45 59 20 92 70 03/26/22 02:42 65 155/68 03/26/22 02:01 66 149/69 03/26/22 02:00 67 20 95 Mechanical Ventilator 70.00 03/26/22 01:00 66 20 93 Mechanical Ventilator 70.00 03/26/22 01:00 66 03/26/22 00:00 71 20 92 Mechanical Ventilator 70.00 03/26/22 00:00 70 03/25/22 23:59 94 Mechanical Ventilator 70.00 03/25/22 23:43 71 140/67 03/25/22 23:40 70 160/71 03/25/22 23:00 78 20 92 Mechanical Ventilator 70.00 03/25/22 23:00 71 167/73 03/25/22 22:01 71 140/67 03/25/22 22:00 Mechanical Ventilator 70.00 03/25/22 22:00 70 20 91 Mechanical Ventilator 70.00 03/25/22 21:54 60 20 90 60 03/25/22 21:00 58 20 92 Mechanical Ventilator 60.00 03/25/22 20:03 61 20 91 Mechanical Ventilator 60.00 03/25/22 20:00 91 Mechanical Ventilator 60.00 03/25/22 20:00 60 03/25/22 19:44 35.9 03/25/22 19:37 60 125/62 03/25/22 19:00 60 20 93 Mechanical Ventilator 50.00 03/25/22 19:00 60 03/25/22 18:58 63 134/65 03/25/22 18:39 60 20 93 60 03/25/22 18:00 60 23 94 Mechanical Ventilator 50.00 03/25/22 17:00 62 6 96 Mechanical Ventilator 50.00 03/25/22 16:00 62 19 97 Mechanical Ventilator 50.00 03/25/22 16:00 36.5 03/25/22 16:00 92 Mechanical Ventilator 60 03/25/22 16:00 50 03/25/22 15:00 61 36 95 Mechanical Ventilator 50.00 03/25/22 14:58 62 117/59 03/25/22 14:44 60 20 97 60 03/25/22 14:00 61 20 98 Mechanical Ventilator 50.00 03/25/22 13:00 65 28 97 Mechanical Ventilator 50.00 03/25/22 12:58 93 Mechanical Ventilator 60 03/25/22 12:46 75 03/25/22 12:00 50 03/25/22 12:00 71 27 94 Mechanical Ventilator 50.00 I & O 03/26/22 07:00 Intake Total 3990 ml Output Total 3775 ml Balance 215 ml Capillary Refill : Less Than 3 Seconds General Appearance: No Apparent Distress HEENT: TMs Normal Neck: Full Range of Motion Respiratory: Decreased Breath Sounds, Rhonci Cardiovascular: Regular Rate, Rhythm Gastrointestinal: normal bowel sounds, non tender, soft Extremity: Normal Capillary Refill Neurologic/Psychiatric: Other (on vent/sedated) Skin: Normal Color Lymphatic: No Adenopathy Results Lab Laboratory Tests 03/25/22 12:00: Glucometer 165H 03/25/22 18:14: Glucometer 186H 03/25/22 23:35: Glucometer 142H 03/26/22 03:20: Blood Gas Puncture Site L ARTLINE, Blood Gas Patient Temperature 36.6, Arterial Blood pH 7.48H, Arterial Blood Partial Pressure CO2 38, Arterial Blood Partial Pressure O2 56L, Arterial Blood HCO3 28H, Arterial Blood Total CO2 29.6, Arterial Blood Oxygen Saturation 92L, Arterial Blood Base Excess 4.9H, Johnathon Test ARTLINE, Blood Gas Ventilator Setting YES, Blood Gas Inspired Oxygen 70% 03/26/22 04:37: White Blood Count 4.6, Red Blood Count 2.40L, Hemoglobin 8.5#L, Hematocrit 26L, Mean Corpuscular Volume 106H, Mean Corpuscular Hemoglobin 35H, Mean Corpuscular Hemoglobin Concent 33, Red Cell Distribution Width 15.3H, Platelet Count 226, Mean Platelet Volume 10.5, Immature Granulocyte % (Auto) 1, Neutrophils (%) (Auto) 60, Lymphocytes (%) (Auto) 25, Monocytes (%) (Auto) 11, Eosinophils (%) (Auto) 2, Basophils (%) (Auto) 1, Neutrophils # (Auto) 2.7, Lymphocytes # (Auto) 1.1, Monocytes # (Auto) 0.5, Eosinophils # (Auto) 0.1, Basophils # (Auto) 0.0, Immature Granulocyte # (Auto) 0.0 03/26/22 06:45: Sodium Level 144, Potassium Level 3.1L, Chloride Level 108H, Carbon Dioxide Level 27, Anion Gap 9, Blood Urea Nitrogen 19H, Creatinine 0.81, Estimat Glomerular Filtration Rate 100, BUN/Creatinine Ratio 23, Glucose Level 209H, Calcium Level 8.0L, Phosphorus Level 2.8, Magnesium Level 1.7, Triglycerides Level 141 Microbiology 03/13/22 MRSA Screen - Final, Complete MRSA not isolated 03/12/22 Blood Culture - Final, Complete No growth Assessment/Plan Assessment/Plan Assess & Plan/Chief Complaint on vent sedated with NSTEMI and respiratory failure with ileus filed multiple extubation attempts and now intubated for 2 weeks. will plan for tracheostomy and PEG placement today. ANALIA SALAZAR MD Mar 26, 2022 12:03
[2022-03-26] MEDS ORDERED: PHENYLEPHRINE 100 MCG/ML 10 ML (ANESTHESIA) SYR ONE ×2 (12:06→14:38)
[2022-03-26 12:12] VITALS: BP 134/73
--- NOTE | 2022-03-26 12:20 | Tele-ICU Progress Note ---
Subjective Date Seen by a Provider: Mar 26, 2022 Time Seen by a Provider: 12:20 Subjective/Events-last exam (Tele-ICU Physician , Progress Note ) Service provided via interactive audio and video telecommunications E-CARE system to a patient admitted to ICU bed in [facility]. Available chart/ vitals / labs / Images reviewed Video assessment done using teleICU camera, rest of exam as per RN Discussed with RN Events overnight : Afebrile hemodynamically stable Respiratory - I/O = VENT SETTINGS and ABG reviewed Sedation: RASS discussed with RN , - IV Fentany @ 75l and Propofol @ 10, TG's 137, also on IV Precedex @ 0.8 NOT CANDIDATE for SBTreviewed possible contraindications including Cardiovascular Stability /Sedation Score / FI02/PEEP / ABG / CXR/ secretions Drips: Pressors- no Consultants: Hospital course: (03/12) 61M Admitted for COPD/CHF, bronchitis. Hypercapenic. ?NSTEMI. INTUBATED in ICU (03/17) EXTUBATED AND REINTUBATED. Worsening pulmonary edema. (03/21) Needs KUB. Cannot do d/t weight. Surgery consulted. (03/22) EXTUBATED AND THEN REINTUBATED. Hypertensive (03/24) Large ngt output, tf on hold. 03/26-AC 26/Vt 500/FiO2 55%/ Patient is seen today due to persistent and new A/P Acute resp failure - s/p ETT 03/12 , has been extubated x 2, reintubated on 03/22 -AC AC 20, Vt 600, Peak Paw in 20s 70 % PEEP 8 - WORSENING -Does not need much suctioning -03/25 tried on sedation holiday but had to be put back due to anxiety, big rise in SBP to 200 - plan is for trach and PEG placement today - CPM for today Ac systolic CHF. CAD - echo on 03/12/22: LVEF 35-40%, mod diffuse hypokinesis of LV -on lasix 80 bid - as per cards COPD suspercted - acute on chronic exacerbation Anemia 03/26 - Hb drop 3 g - follow , no acute bleeding Hypernatremia - with diuresis , was on 04/15 NS - will stop now with increased need for O2 to 70 % , if no H2O allowed by Sx trough PEG will start on d10W and monitor GAEL at presentation - resolved with hydration - monitor with diuresis now - Replace lytes DM - ISS TF have been on hold due to large NG output and plans for PEG - off any nutrition d #6 - to readress after PEG if can start at least minimal Lines : , (Central Line Necessity Reviewed) Jenkins: OG: Nutrition: Analgesia: Anxiety/ delirium VTE Prophylaxis: viktoria Stress Ulcer Prophylaxis: Plans in collaboration with bedside consultants and IM MDs. Discussed with RN to reach out if any questions or concerns A total of 32 minutes of critical care time was devoted to this patient today, required to treat and/or prevent further deterioration of critical care condition ( as above ) . Sepsis Event Evaluation Height, Weight, BMI Height: '" Weight: lbs. oz. kg; 48.71 BMI Method: Exam Exam Patient acknowledged, consented, and participated in this virtual visit which was conducted using real time audio/video Vital Signs Date Time Temp Pulse Resp B/P (MAP) Pulse Ox O2 Delivery O2 Flow Rate FiO2 03/26/22 12:00 36.7 03/26/22 12:00 70 03/26/22 12:00 97 Mechanical Ventilator 65 03/26/22 11:29 97 Mechanical Ventilator 65.00 03/26/22 11:00 62 20 97 Mechanical Ventilator 70.00 03/26/22 10:30 64 20 97 65 03/26/22 10:00 61 20 96 Mechanical Ventilator 70.00 03/26/22 09:00 59 21 96 Mechanical Ventilator 70.00 03/26/22 08:39 95 Mechanical Ventilator 70 03/26/22 08:39 70 03/26/22 08:30 60 137/68 03/26/22 08:00 59 20 95 Mechanical Ventilator 70.00 03/26/22 07:59 36.5 03/26/22 07:00 60 03/26/22 07:00 60 20 94 Mechanical Ventilator 70.00 03/26/22 06:45 61 139/66 03/26/22 06:30 59 20 95 70 03/26/22 06:00 61 20 95 Mechanical Ventilator 70.00 03/26/22 05:25 65 139/66 03/26/22 05:25 65 139/66 03/26/22 05:00 62 20 95 Mechanical Ventilator 70.00 03/26/22 04:20 65 139/66 03/26/22 04:00 94 Mechanical Ventilator 70.00 03/26/22 04:00 70 03/26/22 04:00 62 20 95 Mechanical Ventilator 70.00 03/26/22 03:45 65 139/66 03/26/22 03:12 36.6 64 20 94 Mechanical Ventilator 70.00 03/26/22 03:00 65 20 95 Mechanical Ventilator 70.00 03/26/22 02:45 59 20 92 70 03/26/22 02:42 65 155/68 03/26/22 02:01 66 149/69 03/26/22 02:00 67 20 95 Mechanical Ventilator 70.00 03/26/22 01:00 66 20 93 Mechanical Ventilator 70.00 03/26/22 01:00 66 03/26/22 00:00 71 20 92 Mechanical Ventilator 70.00 03/26/22 00:00 70 03/25/22 23:59 94 Mechanical Ventilator 70.00 03/25/22 23:43 71 140/67 03/25/22 23:40 70 160/71 03/25/22 23:00 78 20 92 Mechanical Ventilator 70.00 03/25/22 23:00 71 167/73 03/25/22 22:01 71 140/67 03/25/22 22:00 Mechanical Ventilator 70.00 03/25/22 22:00 70 20 91 Mechanical Ventilator 70.00 03/25/22 21:54 60 20 90 60 03/25/22 21:00 58 20 92 Mechanical Ventilator 60.00 03/25/22 20:03 61 20 91 Mechanical Ventilator 60.00 03/25/22 20:00 91 Mechanical Ventilator 60.00 03/25/22 20:00 60 03/25/22 19:44 35.9 03/25/22 19:37 60 125/62 03/25/22 19:00 60 20 93 Mechanical Ventilator 50.00 03/25/22 19:00 60 03/25/22 18:58 63 134/65 03/25/22 18:39 60 20 93 60 03/25/22 18:00 60 23 94 Mechanical Ventilator 50.00 03/25/22 17:00 62 6 96 Mechanical Ventilator 50.00 03/25/22 16:00 62 19 97 Mechanical Ventilator 50.00 03/25/22 16:00 36.5 03/25/22 16:00 92 Mechanical Ventilator 60 03/25/22 16:00 50 03/25/22 15:00 61 36 95 Mechanical Ventilator 50.00 03/25/22 14:58 62 117/59 03/25/22 14:44 60 20 97 60 03/25/22 14:00 61 20 98 Mechanical Ventilator 50.00 03/25/22 13:00 65 28 97 Mechanical Ventilator 50.00 03/25/22 12:58 93 Mechanical Ventilator 60 03/25/22 12:46 75 I & O 03/26/22 07:00 Intake Total 3990 ml Output Total 3775 ml Balance 215 ml Height & Weight Height: '" Weight: lbs. oz. kg; 48.71 BMI Method: General Appearance: No Apparent Distress HEENT: TMs Normal Neck: Full Range of Motion Respiratory: Decreased Breath Sounds, Rhonci Cardiovascular: Regular Rate, Rhythm Capillary Refill: Less Than 3 Seconds Peripheral Pulses: 2+ Dorsalis Pedis (R), 2+ Left Dors-Pedis (L) Gastrointestinal: normal bowel sounds, non tender, soft Extremity: Normal Capillary Refill Neurologic/Psychiatric: Other (on vent/sedated) Skin: Normal Color Lymphatic: No Adenopathy Results Lab Laboratory Tests 03/25/22 02:35 03/26/22 04:37 03/26/22 06:45 Assessment/Plan Assessment/Plan 1 MILAGROS HUBER MD Mar 26, 2022 12:20
[2022-03-26] MEDS ORDERED: ceFAZolin INJECTION 1,000 MG ONE (12:40)
[2022-03-26] MEDS ORDERED: ceFAZolin INJECTION 2,000 MG ONE (12:40)
[2022-03-26] MEDS ORDERED: fentaNYL INJ 100 MCG/2 ML AMP ONE (12:58)
[2022-03-26] MEDS ORDERED: ROCURONIUM 10 MG/ML 5 ML SYRINGE IV ONE ×2 (13:08→13:41)
--- NOTE | 2022-03-26 13:51 | Progress Note-Post Operative ---
Post-Operative Progess Note Surgeon (s)/Poultry And Fish Butcher (s) Surgeon ANALIA SALAZAR MD Poultry And Fish Butcher: none Pre-Operative Diagnosis respiratory failure, COPD Post-Operative Diagnosis same, reflux esophagitis(grade B), small HH, moderate gastritis. Procedure & Operative Findings Date of Procedure 03/26/22 Procedure Performed/Findings tracheostomy. EGD with bx and gastrostomy tube placement. Anesthesia Type get Estimated Blood Loss Estimated blood loss (mL): minimal Specimens/Packing Specimens Removed ge jxn, antrum ANALIA SALAZAR MD Mar 26, 2022 13:51
[2022-03-26 14:30] VITALS: BP 164/82
[2022-03-26] MEDS ORDERED: SEVOFLURANE (ULTANE) 15 ML INHAL SOLN ONE (14:38)
[2022-03-26] MEDS ORDERED: ALBUMIN 25% 25 GM/100 ML 100 ML IV ONE (17:00)
[2022-03-26] MEDS ORDERED: [UNRECOGNIZED DRUG - OTHER] IV SCH ×9 (17:00)
[2022-03-26] MEDS ORDERED: POTASSIUM CHLORIDE IV SCH ×9 (17:00)
[2022-03-26] MEDS ORDERED: SODIUM ACETATE IV SCH ×9 (17:00)
[2022-03-26] MEDS ORDERED: 1/2 NS IV SOLUTION 1,000 ML IV SCH (17:00)
--- NOTE | 2022-03-26 17:26 | Progress Note - Cardiology ---
Cardiology SOAP Progress Note Subjective: On vent, unresponsive Objective: I&O/Vital Signs 03/26/22 03/26/22 03/26/22 03/26/22 05:25 05:25 06:00 06:30 Pulse 65 65 61 59 Resp 20 20 B/P (MAP) 139/66 139/66 Pulse Ox 95 95 O2 Delivery Mechanical Ventilator O2 Flow Rate 70.00 FiO2 70 03/26/22 03/26/22 03/26/22 03/26/22 06:45 07:00 07:00 07:59 Temp 36.5 Pulse 61 60 60 Resp 20 B/P (MAP) 139/66 Pulse Ox 94 O2 Delivery Mechanical Ventilator O2 Flow Rate 70.00 03/26/22 03/26/22 03/26/22 03/26/22 08:00 08:30 08:39 08:39 Pulse 59 60 Resp 20 B/P (MAP) 137/68 Pulse Ox 95 95 O2 Delivery Mechanical Ventilator Mechanical Ventilator O2 Flow Rate 70.00 FiO2 70 70 03/26/22 03/26/22 03/26/22 03/26/22 09:00 10:00 10:30 11:00 Pulse 59 61 64 62 Resp 21 20 20 20 B/P (MAP) Pulse Ox 96 96 97 97 O2 Delivery Mechanical Ventilator Mechanical Ventilator Mechanical Ventilator O2 Flow Rate 70.00 70.00 70.00 FiO2 65 03/26/22 03/26/22 03/26/22 03/26/22 11:29 12:00 12:00 12:00 Temp 36.7 Pulse Ox 97 97 O2 Delivery Mechanical Ventilator Mechanical Ventilator O2 Flow Rate 65.00 FiO2 65 70 03/26/22 03/26/22 03/26/22 03/26/22 12:00 12:12 14:30 15:00 Pulse 60 64 84 77 Resp 20 20 20 37 B/P (MAP) Pulse Ox 97 97 94 95 O2 Delivery Mechanical Ventilator Mechanical Ventilator O2 Flow Rate 65.00 65.00 FiO2 65 65 03/26/22 03/26/22 03/26/22 03/26/22 16:00 16:00 16:00 16:00 Temp 36.0 Pulse 79 Resp 25 B/P (MAP) Pulse Ox 96 92 O2 Delivery Mechanical Ventilator Mechanical Ventilator O2 Flow Rate 65.00 FiO2 65 70 03/26/22 00:00 Intake Total 1450 ml Output Total 2375 ml Balance -925 ml Constitutional: other (Intubated, on mech vent, non-communicative) Respiratory: other (Intubated, on mech vent, non-communicative) Cardiovascular: regular rate-rhythm Gastrointestional: soft, round; No audible bowel sounds Extremities: no lower extremity edema bilateral Neurologic/Psychiatric: other (moves all limbs equally) Skin: No rash on exposed areas, No ulcerations on exposed areas Results/Procedures: Labs Laboratory Tests 03/25/22 18:14: Glucometer 186H 03/25/22 23:35: Glucometer 142H 03/26/22 03:20: Blood Gas Puncture Site L ARTLINE, Blood Gas Patient Temperature 36.6, Arterial Blood pH 7.48H, Arterial Blood Partial Pressure CO2 38, Arterial Blood Partial Pressure O2 56L, Arterial Blood HCO3 28H, Arterial Blood Total CO2 29.6, Arterial Blood Oxygen Saturation 92L, Arterial Blood Base Excess 4.9H, Johnathon Test ARTLINE, Blood Gas Ventilator Setting YES, Blood Gas Inspired Oxygen 70% 03/26/22 04:37: White Blood Count 4.6, Red Blood Count 2.40L, Hemoglobin 8.5#L, Hematocrit 26L, Mean Corpuscular Volume 106H, Mean Corpuscular Hemoglobin 35H, Mean Corpuscular Hemoglobin Concent 33, Red Cell Distribution Width 15.3H, Platelet Count 226, Mean Platelet Volume 10.5, Immature Granulocyte % (Auto) 1, Neutrophils (%) (Auto) 60, Lymphocytes (%) (Auto) 25, Monocytes (%) (Auto) 11, Eosinophils (%) (Auto) 2, Basophils (%) (Auto) 1, Neutrophils # (Auto) 2.7, Lymphocytes # (Auto) 1.1, Monocytes # (Auto) 0.5, Eosinophils # (Auto) 0.1, Basophils # (Auto) 0.0, Immature Granulocyte # (Auto) 0.0 03/26/22 06:45: Sodium Level 144, Potassium Level 3.1L, Chloride Level 108H, Carbon Dioxide Level 27, Anion Gap 9, Blood Urea Nitrogen 19H, Creatinine 0.81, Estimat Glomerular Filtration Rate 100, BUN/Creatinine Ratio 23, Glucose Level 209H, Calcium Level 8.0L, Phosphorus Level 2.8, Magnesium Level 1.7, Triglycerides Level 141 03/26/22 11:54: Glucometer 157H Microbiology 03/13/22 MRSA Screen - Final, Complete MRSA not isolated 03/12/22 Blood Culture - Final, Complete No growth A/P: Assessment: Acute and prolonged resp failure requiring continuing mech vent - extubated on 03/17/22 and reintubated the same day - s/p trach on 03/26/22 Ac systolic CHF - echo on 03/12/22: LVEF 35-40%, mod diffuse hypokinesis of LV Minimal troponin elevation - Type 2 MN d/t hypoxia and transient hypotension CAD with stents x 2 - Family at the bedside reports he had stents done at [facility] in [place], [place] in Nov 2021 at which time he had an MN COPD per ED documentation - acute on chronic exacerbation Documented h/o HTN Renal insufficiency at presentation - resolved with hydration DM per ED documentation HLD per ED documentation Probable NATALIE - advise out pt w/u if he recovers from his current resp failure Morbid obesity - BMI approx 49 Plan: * continue diuretics * Continue iv enalaprilat and beta-mj as tolerated by bp * Continue DAPT d/t CAD and family report of recent stent placement in [place] in November 2021 * Consider spironolactone and SGLT2-inhib when able to take oral meds * Sleep studies when able to * Continue DVT prophylaxis * Monitor labs closely * Prognosis appears increasingly poor, given continuing resp failure that is unresponsive to treatment - trach and PEG placement today * Consider transfer to a tertiary care facility due to continuing resp failure and mech vent NERISSA GARCIA MD FACP [facility] Mar 26, 2022 17:26
[2022-03-26] MEDS: 1/2 NS IV SOLUTION 1,000 ML IV SCH (17:33)
[2022-03-26 17:47] LABS: HEMATOCRIT 38 % (40-54); HEMOGLOBIN 12.2 g/dL (13.3-17.7); MEAN CORPUSCULAR HEMOGLOBIN 32 pg (25-34); MEAN CORPUSCULAR HGB CONC 32 g/dL (32-36); MEAN CORPUSCULAR VOLUME 97 fL (80-99); MEAN PLATELET VOLUME 10.1 fL (9.0-12.2); PLATELET COUNT 326 10^3/uL (130-400); WHITE BLOOD COUNT 6.9 10^3/uL (4.3-11.0)
[2022-03-26 18:00] LABS: CALCIUM 8.2 MG/DL (8.5-10.1); CREATININE SERUM 0.98 MG/DL (0.60-1.30); POTASSIUM 3.7 MMOL/L (3.6-5.0)
[2022-03-26 18:38] VITALS: BP 106/56
[2022-03-26] MEDS: NS IV 1000 ML 1,000 ML IV SCH (22:45)
--- NOTE | 2022-03-27 01:53 | OPERATIVE REPORT ---
DATE OF SERVICE: 03/26/2022 ADMITTING PHYSICIAN: Dr. Walker. PREOPERATIVE DIAGNOSES: Respiratory failure, exacerbation of COPD. POSTOPERATIVE DIAGNOSES: Respiratory failure, exacerbation of COPD, and reflux esophagitis, Cannon grade B, small hiatal hernia 2 cm in size, moderate gastritis. No distal obstructions. PROCEDURES: Open cut down tracheostomy, EGD with biopsy and percutaneous endoscopic gastrostomy tube placement. SURGEON: Analia Salazar MD ANESTHESIA: General endotracheal. ESTIMATED BLOOD LOSS: Minimal. FINDINGS: Respiratory failure, exacerbation of COPD, and reflux esophagitis, Cannon grade B, small hiatal hernia 2 cm in size, moderate gastritis. No distal obstructions. DISPOSITION: The patient tolerated the procedure well. INDICATIONS: The patient is a 61-year-old male with an extensive past medical history including coronary artery disease, hypertension, hyperlipidemia, COPD, and morbid obesity. He initially went to a walk-in clinic at [facility] of chest pain and was then sent to the emergency department. He underwent workup, which revealed a non-ST segment elevation myocardial infarction. He was admitted and developed respiratory failure requiring intubation quickly. Since that time, his respiratory status has been poor and multiple attempts at weaning had been unsuccessful, so far. The patient has been intubated now for approximately 2 weeks. DESCRIPTION OF PROCEDURE: The patient was brought to the endoscopy suite and laid supine on the table. After adequate IV anesthetic sedative medications and a general endotracheal anesthesia, the patient was placed in a supine position with head elevated and the arms tucked. The face, chest and neck were prepped and draped in the standard surgical fashion. Upon palpation of the cricoid cartilage approximately 2 fingerbreadths below, this area was marked with marking pen and anesthetized using 0.5% Marcaine with epinephrine. A transverse skin incision along the glabellar lines was then made using a #15 blade and the subcutaneous tissue was then dissected using electrocautery. The platysma was identified and also opened transversely. The strap muscles were then identified and the median raphe was then opened vertically using electrocautery. The trachea was identified and the connective tissue fibers were dissected using blunt dissection with visualization with good hemostasis. At the second tracheal ring, a 0 silk suture was placed and in coordination with anesthesia, a 3-sided opening was created in the trachea and dilated with a tracheal dilator. A #8 Shiley tracheostomy tube was then placed. The introducer removed and the cannula placed with good end tidal CO2. Good hemostasis was observed. The skin edges were then reapproximated using a 0 silk suture. The rubber cuff to the tracheostomy was then sutured to the skin using interrupted 0 silk sutures and the cloth tape was used to tie the tracheostomy in place as well. Good hemostasis was observed and drain sponge was placed. The mouth piece was applied and the endoscope was placed in the mouth, visualizing the pharynx and hypopharyngeal region. Vocal cords, epiglottis and vallecula identified and appeared to be normal. Endoscope was then gently intubated from the esophageal opening. Esophagus was insufflated. The endoscope was then advanced into the first, second and third portion of the esophagus at the level of the GE junction. Reflux esophagitis, Cannon grade B identified. No ulcers or strictures identified in that region and a biopsy was taken with forceps with visualization with good hemostasis. The endoscope was then advanced in the stomach with endoscope retroflexed visualizing a small hiatal hernia approximately 2 cm in size. There was moderate severity gastritis. No formal ulcerations, polyps or neoplasms and a biopsy was taken to the antrum to rule out H. pylori with visualization with good hemostasis. The endoscope was then advanced through the pylorus and the first and second portions of the duodenum, which appeared normal with no distal obstructions. The abdominal wall in the left upper abdominal quadrant was then prepped and draped. Using the localizing needle, the skin was anesthetized and identified entering the anterior wall of the stomach. A vertical skin incision was then made using 11 blade and the dilator and trocar were then placed under direct visualization. The guidewire was then placed and looped through the endoscope and pulled out the mouth. The gastrostomy tube was then placed onto the wire and the wire pulled externally until the inner rubber bolster was firmly abutting the anterior wall of the stomach. The ointment was then placed on the exit site followed by drain sponges followed by the external rubber bolster catheter, the tube was then cut down to size and the rubber stopper placed. Good hemostasis was observed. This was evaluated endoscopically under and good hemostasis was observed. The endoscope was then slowly withdrawn, taking a second look and suction of residual air were no additional findings. The patient tolerated the procedure well. The gastrostomy tube may be used at any time. For tracheostomy care, we will recommend gauze, sponges on a daily basis as well as p.r.n. Job ID: [id number] DocumentID: [id number] Dictated Date: 03/26/2022 14:02:38 Die Mounter Date: 03/27/2022 01:51:00 Dictated By: ANALIA SALAZAR MD
[2022-03-27] MEDS: PROPOFOL DRIP (ICU) 100 ML IV SCH ×5 (01:56→20:14)
[2022-03-27 02:39] VITALS: BP 125/54
[2022-03-27] MEDS: RT-ALBUTEROL/IPRATROPIUM 3 ML (DUONEB) VIAL INH SCH ×5 (02:59→22:59)
[2022-03-27] MEDS: DexMEDEtomidine 250 ML DRIP 250 ML IV SCH ×5 (03:42→21:39)
[2022-03-27 04:03] LABS: ABG BASE EXCESS 4.3 MMOL/L (-2.5-2.5); ABG OXYGEN SATURATION 89 % (94-100); ABG PCO2 45 MMHG (35-45); ABG PH 7.42 (7.37-7.43); ABG PO2 56 MMHG (79-93); ABG TCO2 29.9 MMOL/L (21.0-31.0)
[2022-03-27 04:07] LABS: BASOPHILS % (AUTO) 1 % (0-10); EOSINOPHILS # (AUTO) 0.1 10^3/uL (0.0-0.3); EOSINOPHILS % (AUTO) 2 % (0-10); HEMATOCRIT 36 % (40-54); HEMOGLOBIN 11.6 g/dL (13.3-17.7); LYMPHOCYTES # (AUTO) 1.6 10^3/uL (1.0-4.0); LYMPHOCYTES % (AUTO) 26 % (12-44); MEAN CORPUSCULAR HEMOGLOBIN 32 pg (25-34); MEAN CORPUSCULAR HGB CONC 33 g/dL (32-36); MEAN CORPUSCULAR VOLUME 97 fL (80-99); MEAN PLATELET VOLUME 10.1 fL (9.0-12.2); MONOCYTES # (AUTO) 0.7 10^3/uL (0.0-1.0); MONOCYTES % (AUTO) 11 % (0-12); NEUTROPHILS # (AUTO) 3.8 10^3/uL (1.8-7.8); NEUTROPHILS % (AUTO) 61 % (42-75); PLATELET COUNT 319 10^3/uL (130-400); WHITE BLOOD COUNT 6.2 10^3/uL (4.3-11.0)
[2022-03-27 04:08] LABS: ALLENS TEST ARTLINE; INSPIRED O2 65%; PATIENT TEMP 37; VENTILATOR YES
[2022-03-27] MEDS: 1/2 NS IV SOLUTION 1,000 ML IV SCH (04:11)
[2022-03-27 04:22] LABS: CALCIUM 8.2 MG/DL (8.5-10.1); CREATININE SERUM 0.96 MG/DL (0.60-1.30); MAGNESIUM 1.7 MG/DL (1.6-2.4); PHOSPHORUS 3.9 MG/DL (2.3-4.7); POTASSIUM 3.6 MMOL/L (3.6-5.0)
[2022-03-27] MEDS: niCARdipine IV (Pyxis drip kit 50 MG in NS (IVPB) 230 ML IV SCH ×2 (05:03→15:38)
[2022-03-27] MEDS: POTASSIUM CL 10MEQ/50ML IVPB 50 ML IV SCH ×2 (05:03→06:01)
[2022-03-27] MEDS: MAGNESIUM 1 GM/100 ML IVPB 100 ML IV SCH ×2 (05:03→06:01)
[2022-03-27] MEDS: KCL 20 MEQ TAB (K-DUR) PO SCH (05:04)
[2022-03-27] MEDS: FLEET ENEMA ADULT 1 EA BTL PR SCH ×3 (05:05→22:00)
[2022-03-27] MEDS: meTOprolol 5 MG/5 ML (LOPRESSOR) VIAL IV SCH ×3 (06:00→17:13)
[2022-03-27] MEDS: METOCLOPRAMIDE INJ 10 MG/2 ML (REGLAN) IVP SCH ×3 (06:00→17:06)
[2022-03-27 06:37] VITALS: BP 111/54
[2022-03-27] MEDS: fentaNYL DRIP PRE-MIX 250 ML IV SCH (06:53)
[2022-03-27] MEDS: FUROSEMIDE 40 MG/4 ML INJ (LASIX) IVP SCH ×2 (06:56→17:08)
[2022-03-27] MEDS: PANTOPRAZOLE 40 MG (PROTONIX) VIAL IV SCH (07:48)
[2022-03-27] MEDS: ENALAPRILAT 2.5 MG/2 ML (VASOTEC) VIAL IV SCH ×2 (07:48→20:03)
[2022-03-27] MEDS: ASPIRIN 81 MG CHEW (CHILDREN'S ASA) PO SCH ×2 (07:49→08:06)
[2022-03-27] MEDS: CLOPIDOGREL 75 MG (PLAVIX) TABLET PO SCH ×2 (07:49→08:06)
[2022-03-27] MEDS: LACRI-LUBE OPTHALMIC OINT 3.5 GM TUBE OU SCH ×3 (07:49→20:04)
--- NOTE | 2022-03-27 07:59 | Anesthesia-General Post-Op ---
General Patient Condition Mental Status/LOC: Same as Preop Cardiovascular: Satisfactory Nausea/Vomiting: Absent Respiratory: Satisfactory Pain: Controlled Complications: Absent Post Op Complications Complications None Follow Up Care/Instructions Patient Instructions None needed. Anesthesia/Patient Condition Patient Condition Patient is doing well, no complaints, stable vital signs, no apparent adverse anesthesia problems. No complications reported per nursing. THA LOPEZ CRNA Mar 27, 2022 07:59
--- NOTE | 2022-03-27 08:23 | Progress Note - Hospitalist ---
Subjective HPI/CC On Admission Date Seen by Provider: Mar 27, 2022 Patient is a 61-year-old -[place] male with past medical history of coronary artery disease, hypertension, hyperlipidemia,, COPD who presented to the emergency department due to hypoxia and chest pain. He was seen at the walk-in clinic at [facility] and complained of chest pain to them and he was referred to the emergency department. He has been seen in the ER mul tiple times in the past week or so but has declined most work-up at those visits. This visit he did allow for labs and x-ray which revealed an NSTEMI. He was admitted for further management. Unfortunately overnight his respiratory status worsened and he required intubation. He is unable to provide me any history due to this and thus all history was obtained from the records. Subjective/Events-last exam Pt remains sedated but received trach yesterday and on vent. More awake than yesterday though. Objective Exam Vital Signs Vital Signs Date Time Temp Pulse Resp B/P (MAP) Pulse Ox O2 Delivery O2 Flow Rate FiO2 03/27/22 08:06 63 106/51 03/27/22 07:59 65 03/27/22 07:58 97 Mechanical Ventilator 03/27/22 06:37 20 03/27/22 06:10 65.00 03/27/22 03:46 37.0 Capillary Refill : Less Than 3 Seconds General Appearance: Chronically ill, Obese Neck: Other (trach collar) Respiratory: Decreased Breath Sounds; No Wheezing; Other (on vent) Cardiovascular: Regular Rate, Rhythm, No Murmur Gastrointestinal: Non Tender, Soft, Other (PEG) Extremity: Pedal Edema Neurologic/Psychiatric: Alert (opened eyes when spoken to, did not answer questions) Results/Procedures Lab Laboratory Tests 03/26/22 17:30 03/27/22 03:55 Patient resulted labs reviewed. Imaging: Reviewed Imaging Report Assessment/Plan Assessment and Plan Assess & Plan/Chief Complaint Acute hypercapnic and hypoxic respiratory failure COPD exacerbation with lower respiratory tract infection Trach/PEG 03/[address] Jessica Linder consulted for vent management Completed course of abx Tube feeds to start today, continue TPN until at goal for TF Referral sent to [facility] 03/26 NSTEMI CAD HTN HLD Likely Type II due to above Cardiology consulted, appreciate recs ASA and Plavix BB and joshua-i Echo with EF of 35% Ileus Surgery following Last documented BM 03/23 Start trickle feeds to see if he tolerates DMII Sliding Scale Insulin DVT ppx Lovenox Critical Care Ventilator Management Diagnosis/Problems Diagnosis/Problems (1) Acute respiratory failure Status: Acute Qualifiers: Respiratory failure complication: hypoxia and hypercapnia Qualified Codes: J96.01 - Acute respiratory failure with hypoxia; J96.02 - Acute respiratory failure with hypercapnia (2) CAD (coronary artery disease) Qualifiers: Coronary Disease-Associated Artery/Lesion type: unspecified vessel or lesion type [place] vs. transplanted heart: unspecified whether [place] or transplanted heart Associated angina: unspecified whether angina present Qualified Codes: I25.10 - Atherosclerotic heart disease of [place] coronary artery without angina pectoris (3) COPD (chronic obstructive pulmonary disease) Status: Acute Qualifiers: COPD type: COPD with acute lower respiratory infection Qualified Codes: J44.0 - Chronic obstructive pulmonary disease with (acute) lower respiratory infection (4) Essential (primary) hypertension Status: Chronic (5) HLD (hyperlipidemia) Status: Chronic Qualifiers: Hyperlipidemia type: unspecified Qualified Codes: E78.5 - Hyperlipidemia, unspecified (6) COPD with acute bronchitis Status: Acute JAIRO MURILLO MD Mar 27, 2022 08:23
--- NOTE | 2022-03-27 10:26 | Tele-ICU Progress Note ---
Subjective Date Seen by a Provider: Mar 27, 2022 Time Seen by a Provider: 10:25 Subjective/Events-last exam (Tele-ICU Physician , Progress Note ) Service provided via interactive audio and video telecommunications E-CARE system to a patient admitted to ICU bed in [facility]. Available chart/ vitals / labs / Images reviewed Video assessment done using teleICU camera, rest of exam as per RN Discussed with RN Events overnight : Afebrile hemodynamically stable Respiratory - 65 I/O = VENT SETTINGS and ABG reviewed Sedation: RASS discussed with RN , - IV Fentany @ 50l and Propofol @ 20 , TG's 137, also on IV Precedex @ 0.4 NOT CANDIDATE for SBTreviewed possible contraindications including Cardiovascular Stability /Sedation Score / FI02/PEEP / ABG / CXR/ secretions Drips: tpn Pressors- no Consultants: Hospital course: (03/12) 61M Admitted for COPD/CHF, bronchitis. Hypercapenic. ?NSTEMI. INTUBATED in ICU (03/17) EXTUBATED AND REINTUBATED. Worsening pulmonary edema. (03/21) Needs KUB. Cannot do d/t weight. Surgery consulted. (03/22) EXTUBATED AND THEN REINTUBATED. Hypertensive (03/24) Large ngt output, tf on hold. 03/26-AC 26/Vt 500/FiO2 55%/ (03/26) s/p tracheostomy and PEG A/P Acute resp failure - s/p ETT 03/12 , has been extubated x 2, reintubated on 03/22 -AC AC 20, Vt 600, Peak Paw in 20s 65 % PEEP 8 -Does not need much suctioning -03/25 tried on sedation holiday but had to be put back due to anxiety, big rise in SBP to 200, slowly cutting down and trying to wean off - s/p trach 03/26 - CPM for today Ac systolic CHF. CAD - echo on 03/12/22: LVEF 35-40%, mod diffuse hypokinesis of LV -on lasix 80 bid - as per cards COPD suspercted - acute on chronic exacerbation Anemia 03/26 - Hb drop 3 g - follow , no acute bleeding Hypernatremia - with diuresis , IVF stopped - adjust NA in TPN , start H2O allowed by Sx trough PEG GAEL at presentation - resolved with hydration - monitor with diuresis now - Replace lytes DM - ISS TF have been on hold due to large NG output and plans for PEG - off any nutrition d #6 - started on TPN -to statt throphic TF DOMINICK if ok with sx Lines : triple PICC , (Central Line Necessity Reviewed) Jenkins:c+ OG: Nutrition: Analgesia: Anxiety/ delirium VTE Prophylaxis: viktoria Stress Ulcer Prophylaxis: PPI Plans in collaboration with bedside consultants and IM MDs. discussed with Dr Walker Discussed with RN to reach out if any questions or concerns A total of 32 minutes of critical care time was devoted to this patient today, required to treat and/or prevent further deterioration of critical care condition ( as above ) . Sepsis Event Evaluation Height, Weight, BMI Height: '" Weight: lbs. oz. kg; 48.71 BMI Method: Exam Exam Patient acknowledged, consented, and participated in this virtual visit which was conducted using real time audio/video Vital Signs Date Time Temp Pulse Resp B/P (MAP) Pulse Ox O2 Delivery O2 Flow Rate FiO2 03/27/22 10:00 62 22 97 Mechanical Ventilator 65.00 03/27/22 09:00 62 20 97 Mechanical Ventilator 65.00 03/27/22 08:06 63 106/51 03/27/22 08:00 36.9 03/27/22 08:00 63 21 96 Mechanical Ventilator 65.00 03/27/22 07:59 65 03/27/22 07:58 97 Mechanical Ventilator 65 03/27/22 07:00 66 03/27/22 07:00 66 20 97 Mechanical Ventilator 65.00 03/27/22 06:53 64 111/54 03/27/22 06:37 64 20 96 65 03/27/22 06:12 69 127/56 03/27/22 06:10 64 20 96 Mechanical Ventilator 65.00 03/27/22 06:00 69 127/56 03/27/22 05:00 69 20 96 Mechanical Ventilator 65.00 03/27/22 04:00 95 Mechanical Ventilator 65 03/27/22 04:00 65 03/27/22 04:00 70 20 96 Mechanical Ventilator 65.00 03/27/22 03:46 37.0 03/27/22 03:42 72 127/56 03/27/22 03:40 72 127/56 03/27/22 03:00 75 20 96 Mechanical Ventilator 65.00 03/27/22 02:39 71 20 95 65 03/27/22 02:35 72 127/56 03/27/22 02:00 66 20 95 Mechanical Ventilator 65.00 03/27/22 01:56 69 149/58 03/27/22 01:40 69 149/58 03/27/22 01:00 70 03/27/22 01:00 69 20 95 Mechanical Ventilator 65.00 03/27/22 00:01 36.9 Mechanical Ventilator 65.00 03/27/22 00:00 70 20 95 Mechanical Ventilator 65.00 03/27/22 00:00 65 03/26/22 23:59 96 Mechanical Ventilator 65 03/26/22 23:56 77 149/58 03/26/22 23:38 77 149/58 03/26/22 23:00 75 20 95 Mechanical Ventilator 65.00 03/26/22 22:30 77 149/58 03/26/22 22:04 68 20 92 Mechanical Ventilator 65.00 03/26/22 22:02 71 20 96 65 03/26/22 21:38 70 134/60 03/26/22 21:00 67 20 97 Mechanical Ventilator 65.00 03/26/22 21:00 70 134/60 03/26/22 20:11 70 20 90 Mechanical Ventilator 65.00 03/26/22 20:00 65 03/26/22 20:00 36.5 03/26/22 20:00 95 Mechanical Ventilator 65 03/26/22 19:44 69 134/60 03/26/22 19:20 69 134/60 03/26/22 19:05 69 134/60 03/26/22 19:05 69 134/60 03/26/22 19:02 70 20 97 Mechanical Ventilator 65.00 03/26/22 19:00 70 03/26/22 18:38 64 20 96 65 03/26/22 18:00 67 95 Mechanical Ventilator 65.00 03/26/22 17:00 69 94 Mechanical Ventilator 65.00 03/26/22 16:00 70 03/26/22 16:00 36.0 03/26/22 16:00 92 Mechanical Ventilator 65 03/26/22 16:00 79 25 96 Mechanical Ventilator 65.00 03/26/22 15:00 77 37 95 Mechanical Ventilator 65.00 03/26/22 14:30 84 20 94 65 03/26/22 12:12 64 20 97 65 03/26/22 12:00 60 20 97 Mechanical Ventilator 65.00 03/26/22 12:00 36.7 03/26/22 12:00 70 03/26/22 12:00 97 Mechanical Ventilator 65 03/26/22 11:29 97 Mechanical Ventilator 65.00 03/26/22 11:00 62 20 97 Mechanical Ventilator 70.00 03/26/22 10:30 64 20 97 65 I & O 03/27/22 07:00 Intake Total 3850 ml Output Total 4100 ml Balance -250 ml Height & Weight Height: '" Weight: lbs. oz. kg; 48.71 BMI Method: General Appearance: Chronically ill, Obese HEENT: TMs Normal Neck: Other (trach collar) Respiratory: Decreased Breath Sounds; No Wheezing; Other (on vent) Cardiovascular: Regular Rate, Rhythm, No Murmur Capillary Refill: Less Than 3 Seconds Peripheral Pulses: 2+ Dorsalis Pedis (R), 2+ Left Dors-Pedis (L) Gastrointestinal: normal bowel sounds, non tender, soft Extremity: Pedal Edema Neurologic/Psychiatric: Alert (opened eyes when spoken to, did not answer questions) Skin: Normal Color Lymphatic: No Adenopathy Results Lab Laboratory Tests 03/26/22 04:37 03/26/22 06:45 03/26/22 17:30 03/27/22 03:55 Assessment/Plan Assessment/Plan 1 MILAGROS HUBER MD Mar 27, 2022 10:26
[2022-03-27 10:28] VITALS: BP 105/51
[2022-03-27] MEDS: ENOXAPARIN 40 MG/0.4 ML (LOVENOX) SYR SQ SCH (12:55)
--- NOTE | 2022-03-27 14:11 | Progress Note ---
Subjective Date Seen by a Provider: Mar 27, 2022 Time Seen by a Provider: 14:00 Subjective/Events-last exam on vent/sedated, trach and peg intact. remains critically ill. Objective Exam Vital Signs Date Time Temp Pulse Resp B/P (MAP) Pulse Ox O2 Delivery O2 Flow Rate FiO2 03/27/22 13:00 68 03/27/22 12:00 65 03/27/22 12:00 67 21 95 Mechanical Ventilator 65.00 03/27/22 12:00 97 Mechanical Ventilator 65 03/27/22 12:00 36.8 03/27/22 11:00 71 24 96 Mechanical Ventilator 65.00 03/27/22 10:50 74 132/60 03/27/22 10:28 62 21 96 65 03/27/22 10:00 62 22 97 Mechanical Ventilator 65.00 03/27/22 09:00 62 20 97 Mechanical Ventilator 65.00 03/27/22 08:06 63 106/51 03/27/22 08:00 36.9 03/27/22 08:00 63 21 96 Mechanical Ventilator 65.00 03/27/22 07:59 65 03/27/22 07:58 97 Mechanical Ventilator 65 03/27/22 07:00 66 03/27/22 07:00 66 20 97 Mechanical Ventilator 65.00 03/27/22 06:53 64 111/54 03/27/22 06:37 64 20 96 65 03/27/22 06:12 69 127/56 03/27/22 06:10 64 20 96 Mechanical Ventilator 65.00 03/27/22 06:00 69 127/56 03/27/22 05:00 69 20 96 Mechanical Ventilator 65.00 03/27/22 04:00 95 Mechanical Ventilator 65 03/27/22 04:00 65 03/27/22 04:00 70 20 96 Mechanical Ventilator 65.00 03/27/22 03:46 37.0 03/27/22 03:42 72 127/56 03/27/22 03:40 72 127/56 03/27/22 03:00 75 20 96 Mechanical Ventilator 65.00 03/27/22 02:39 71 20 95 65 03/27/22 02:35 72 127/56 03/27/22 02:00 66 20 95 Mechanical Ventilator 65.00 03/27/22 01:56 69 149/58 03/27/22 01:40 69 149/58 03/27/22 01:00 70 03/27/22 01:00 69 20 95 Mechanical Ventilator 65.00 03/27/22 00:01 36.9 Mechanical Ventilator 65.00 03/27/22 00:00 70 20 95 Mechanical Ventilator 65.00 03/27/22 00:00 65 03/26/22 23:59 96 Mechanical Ventilator 65 03/26/22 23:56 77 149/58 03/26/22 23:38 77 149/58 03/26/22 23:00 75 20 95 Mechanical Ventilator 65.00 03/26/22 22:30 77 149/58 03/26/22 22:04 68 20 92 Mechanical Ventilator 65.00 03/26/22 22:02 71 20 96 65 03/26/22 21:38 70 134/60 03/26/22 21:00 67 20 97 Mechanical Ventilator 65.00 03/26/22 21:00 70 134/60 03/26/22 20:11 70 20 90 Mechanical Ventilator 65.00 03/26/22 20:00 65 03/26/22 20:00 36.5 03/26/22 20:00 95 Mechanical Ventilator 65 03/26/22 19:44 69 134/60 03/26/22 19:20 69 134/60 03/26/22 19:05 69 134/60 03/26/22 19:05 69 134/60 03/26/22 19:02 70 20 97 Mechanical Ventilator 65.00 03/26/22 19:00 70 03/26/22 18:38 64 20 96 65 03/26/22 18:00 67 95 Mechanical Ventilator 65.00 03/26/22 17:00 69 94 Mechanical Ventilator 65.00 03/26/22 16:00 70 03/26/22 16:00 36.0 03/26/22 16:00 92 Mechanical Ventilator 65 03/26/22 16:00 79 25 96 Mechanical Ventilator 65.00 03/26/22 15:00 77 37 95 Mechanical Ventilator 65.00 03/26/22 14:30 84 20 94 65 I & O 03/27/22 07:00 Intake Total 3850 ml Output Total 4100 ml Balance -250 ml Capillary Refill : Less Than 3 Seconds General Appearance: Chronically ill HEENT: TMs Normal Neck: Full Range of Motion Respiratory: Decreased Breath Sounds, Rhonci Cardiovascular: Regular Rate, Rhythm Gastrointestinal: normal bowel sounds, non tender, soft, other (peg site intact, no redness/erythema) Extremity: Normal Capillary Refill Neurologic/Psychiatric: Other (remains on vent/sedated) Skin: Normal Color Lymphatic: No Adenopathy Results Lab Laboratory Tests 03/26/22 17:30: White Blood Count 6.9, Red Blood Count 3.87L, Hemoglobin 12.2#L, Hematocrit 38L, Mean Corpuscular Volume 97, Mean Corpuscular Hemoglobin 32, Mean Corpuscular Hemoglobin Concent 32, Red Cell Distribution Width 14.6H, Platelet Count 326, Mean Platelet Volume 10.1, Sodium Level 144, Potassium Level 3.7, Chloride Level 107, Carbon Dioxide Level 27, Anion Gap 10, Blood Urea Nitrogen 20H, Creatinine 0.98, Estimat Glomerular Filtration Rate 88, BUN/Creatinine Ratio 20, Glucose Level 185H, Calcium Level 8.2L 03/26/22 18:00: Glucometer 145H 03/27/22 01:44: Glucometer 202H 03/27/22 03:55: White Blood Count 6.2, Red Blood Count 3.67L, Hemoglobin 11.6L, Hematocrit 36L, Mean Corpuscular Volume 97, Mean Corpuscular Hemoglobin 32, Mean Corpuscular Hemoglobin Concent 33, Red Cell Distribution Width 14.6H, Platelet Count 319, Mean Platelet Volume 10.1, Sodium Level 144, Potassium Level 3.6, Chloride Level 108H, Carbon Dioxide Level 25, Anion Gap 11, Blood Urea Nitrogen 24H, Creatinine 0.96, Estimat Glomerular Filtration Rate 90, BUN/Creatinine Ratio 25, Glucose Level 230H, Calcium Level 8.2L, Immature Granulocyte % (Auto) 1, Neutrophils (%) (Auto) 61, Lymphocytes (%) (Auto) 26, Monocytes (%) (Auto) 11, Eosinophils (%) (Auto) 2, Basophils (%) (Auto) 1, Neutrophils # (Auto) 3.8, Lymphocytes # (Auto) 1.6, Monocytes # (Auto) 0.7, Eosinophils # (Auto) 0.1, Basophils # (Auto) 0.0, Immature Granulocyte # (Auto) 0.0, Blood Gas Puncture Site L ARTLINE, Blood Gas Patient Temperature 37, Arterial Blood pH 7.42, Arterial Blood Partial Pressure CO2 45, Arterial Blood Partial Pressure O2 56L, Arterial Blood HCO3 29H, Arterial Blood Total CO2 29.9, Arterial Blood Oxygen Saturation 89L, Arterial Blood Base Excess 4.3H, Johnathon Test ARTLINE, Blood Gas Ventilator Setting YES, Blood Gas Inspired Oxygen 65%, Phosphorus Level 3.9, Magnesium Level 1.7, Triglycerides Level 106 03/27/22 06:48: Glucometer 229H 03/27/22 11:31: Glucometer 214H Microbiology 03/13/22 MRSA Screen - Final, Complete MRSA not isolated 03/12/22 Blood Culture - Final, Complete No growth Assessment/Plan Assessment/Plan Assess & Plan/Chief Complaint on vent sedated with NSTEMI and respiratory failure with ileus s/p tracheostomy and PEG placement filed multiple extubation attempts and now intubated for 2 weeks. may use PEG at any time. recommend drain sponge gauze daily and PRN to trach and PEG site. ANALIA SALAZAR MD Mar 27, 2022 14:11
[2022-03-27 15:25] VITALS: BP 128/59
[2022-03-27] MEDS: SODIUM ACETATE IV SCH ×10 (17:09)
[2022-03-27] MEDS: [UNRECOGNIZED DRUG - OTHER] IV SCH ×10 (17:09)
[2022-03-27] MEDS: POTASSIUM CHLORIDE IV SCH ×10 (17:09)
--- NOTE | 2022-03-27 18:48 | Progress Note - Cardiology ---
Cardiology SOAP Progress Note Subjective: on mec vent, ventilated through trach, unresponsive Objective: I&O/Vital Signs 03/27/22 03/27/22 03/27/22 03/27/22 06:53 07:00 07:00 07:58 Pulse 64 66 66 Resp 20 B/P (MAP) 111/54 Pulse Ox 97 97 O2 Delivery Mechanical Ventilator Mechanical Ventilator O2 Flow Rate 65.00 FiO2 65 03/27/22 03/27/22 03/27/22 03/27/22 07:59 08:00 08:00 08:06 Temp 36.9 Pulse 63 63 Resp 21 B/P (MAP) 106/51 Pulse Ox 96 O2 Delivery Mechanical Ventilator O2 Flow Rate 65.00 FiO2 65 03/27/22 03/27/22 03/27/22 03/27/22 09:00 10:00 10:28 10:50 Pulse 62 62 62 74 Resp 20 22 21 B/P (MAP) 132/60 Pulse Ox 97 97 96 O2 Delivery Mechanical Ventilator Mechanical Ventilator O2 Flow Rate 65.00 65.00 FiO2 65 03/27/22 03/27/22 03/27/22 03/27/22 11:00 12:00 12:00 12:00 Temp 36.8 Pulse 71 67 Resp 24 21 B/P (MAP) Pulse Ox 96 97 95 O2 Delivery Mechanical Ventilator Mechanical Ventilator Mechanical Ventilator O2 Flow Rate 65.00 65.00 FiO2 65 03/27/22 03/27/22 03/27/22 03/27/22 12:00 13:00 13:00 14:00 Pulse 68 68 71 Resp 24 8 B/P (MAP) Pulse Ox 96 97 O2 Delivery Mechanical Ventilator Mechanical Ventilator O2 Flow Rate 65.00 65.00 FiO2 65 03/27/22 03/27/22 03/27/22 03/27/22 15:00 15:25 15:38 15:39 Pulse 64 66 69 Resp 8 21 B/P (MAP) 132/61 Pulse Ox 98 97 O2 Delivery Mechanical Ventilator O2 Flow Rate 65.00 FiO2 65 65 03/27/22 03/27/22 03/27/22 03/27/22 15:40 16:00 16:05 17:00 Temp 36.6 Pulse 63 61 Resp 20 21 B/P (MAP) Pulse Ox 97 97 97 O2 Delivery Mechanical Ventilator Mechanical Ventilator Mechanical Ventilator O2 Flow Rate 65.00 65.00 FiO2 65 03/27/22 03/27/22 03/27/22 17:06 17:15 18:00 Temp 36.7 Pulse 62 65 Resp 26 B/P (MAP) 127/58 Pulse Ox 96 O2 Delivery Mechanical Ventilator O2 Flow Rate 65.00 03/27/22 00:00 Intake Total 1750 ml Output Total 2850 ml Balance -1100 ml Constitutional: other (on mec vent, ventilated through trach, unresponsive) Respiratory: other (Intubated, on mech vent, non-communicative) Cardiovascular: regular rate-rhythm Gastrointestional: soft, round; No audible bowel sounds; other (s/p PEG) Extremities: no lower extremity edema bilateral Neurologic/Psychiatric: other (unresponsive) Skin: No rash on exposed areas, No ulcerations on exposed areas Results/Procedures: Labs Laboratory Tests 03/27/22 01:44: Glucometer 202H 03/27/22 03:55: White Blood Count 6.2, Red Blood Count 3.67L, Hemoglobin 11.6L, Hematocrit 36L, Mean Corpuscular Volume 97, Mean Corpuscular Hemoglobin 32, Mean Corpuscular Hemoglobin Concent 33, Red Cell Distribution Width 14.6H, Platelet Count 319, Mean Platelet Volume 10.1, Immature Granulocyte % (Auto) 1, Neutrophils (%) (Auto) 61, Lymphocytes (%) (Auto) 26, Monocytes (%) (Auto) 11, Eosinophils (%) (Auto) 2, Basophils (%) (Auto) 1, Neutrophils # (Auto) 3.8, Lymphocytes # (Auto) 1.6, Monocytes # (Auto) 0.7, Eosinophils # (Auto) 0.1, Basophils # (Auto) 0.0, Immature Granulocyte # (Auto) 0.0, Blood Gas Puncture Site L ARTLINE, Blood Gas Patient Temperature 37, Arterial Blood pH 7.42, Arterial Blood Partial Pressure CO2 45, Arterial Blood Partial Pressure O2 56L, Arterial Blood HCO3 29H, Arterial Blood Total CO2 29.9, Arterial Blood Oxygen Saturation 89L, Arterial Blood Base Excess 4.3H, Johnathon Test ARTLINE, Blood Gas Ventilator Setting YES, Blood Gas Inspired Oxygen 65%, Sodium Level 144, Potassium Level 3.6, Chloride Level 108H, Carbon Dioxide Level 25, Anion Gap 11, Blood Urea Nitrogen 24H, Creatinine 0.96, Estimat Glomerular Filtration Rate 90, BUN/Creatinine Ratio 25, Glucose Level 230H, Calcium Level 8.2L, Phosphorus Level 3.9, Magnesium Level 1.7, Triglycerides Level 106 03/27/22 06:48: Glucometer 229H 03/27/22 11:31: Glucometer 214H 03/27/22 18:22: Glucometer 193H Microbiology 03/13/22 MRSA Screen - Final, Complete MRSA not isolated 03/12/22 Blood Culture - Final, Complete No growth A/P: Assessment: Acute and prolonged resp failure requiring continuing mech vent - extubated on 03/17/22 and reintubated the same day - s/p trach on 03/26/22 - s/p PEG on 03/26/22 Ac systolic CHF - echo on 03/12/22: LVEF 35-40%, mod diffuse hypokinesis of LV Minimal troponin elevation - Type 2 IA d/t hypoxia and transient hypotension CAD with stents x 2 - Family at the bedside reports he had stents done at [facility] in [place], [place] in Nov 2021 at which time he had an IA COPD per ED documentation - acute on chronic exacerbation Documented h/o HTN Renal insufficiency at presentation - resolved with hydration DM per ED documentation HLD per ED documentation Probable NATALIE - advise out pt w/u if he recovers from his current resp failure Morbid obesity - BMI approx 49 Plan: * continue diuretics * Continue iv enalaprilat and beta-mj as tolerated by bp * Continue DAPT d/t CAD and family report of recent stent placement in [place] in November 2021 * Consider spironolactone and SGLT2-inhib when able to take oral meds * Sleep studies when able to * Continue DVT prophylaxis * Monitor labs closely * Prognosis poor, given continuing resp failure that is unresponsive to treatment * Consider transfer to a tertiary care facility due to continuing resp failure and mech vent NERISSA GARCIA MD [facility] Mar 27, 2022 18:48
[2022-03-27 19:05] VITALS: BP 127/68
[2022-03-27] MEDS: NS IV 1000 ML 1,000 ML IV SCH (22:45)
[2022-03-27 22:59] VITALS: BP 127/70
[2022-03-28] MEDS: meTOprolol 5 MG/5 ML (LOPRESSOR) VIAL IV SCH ×4 (00:05→18:53)
[2022-03-28] MEDS: ENOXAPARIN 40 MG/0.4 ML (LOVENOX) SYR SQ SCH ×3 (00:05→23:37)
[2022-03-28] MEDS: METOCLOPRAMIDE INJ 10 MG/2 ML (REGLAN) IVP SCH ×5 (00:05→23:37)
[2022-03-28] MEDS: 1/2 NS IV SOLUTION 1,000 ML IV SCH ×3 (00:36→23:34)
[2022-03-28] MEDS: PROPOFOL DRIP (ICU) 100 ML IV SCH ×4 (00:54→20:27)
[2022-03-28] MEDS: niCARdipine IV (Pyxis drip kit 50 MG in NS (IVPB) 230 ML IV SCH ×3 (01:30→22:02)
[2022-03-28] MEDS: DexMEDEtomidine 250 ML DRIP 250 ML IV SCH ×4 (01:52→22:00)
[2022-03-28 02:01] VITALS: BP 124/58
[2022-03-28] MEDS: RT-ALBUTEROL/IPRATROPIUM 3 ML (DUONEB) VIAL INH SCH ×6 (02:01→23:29)
[2022-03-28 03:15] LABS: BASOPHILS % (AUTO) 1 % (0-10); EOSINOPHILS # (AUTO) 0.1 10^3/uL (0.0-0.3); EOSINOPHILS % (AUTO) 2 % (0-10); HEMATOCRIT 36 % (40-54); LYMPHOCYTES # (AUTO) 1.9 10^3/uL (1.0-4.0); LYMPHOCYTES % (AUTO) 23 % (12-44); MEAN CORPUSCULAR HEMOGLOBIN 32 pg (25-34); MEAN CORPUSCULAR HGB CONC 33 g/dL (32-36); MEAN CORPUSCULAR VOLUME 97 fL (80-99); MONOCYTES % (AUTO) 12 % (0-12); NEUTROPHILS % (AUTO) 62 % (42-75); PLATELET COUNT 295 10^3/uL (130-400); WHITE BLOOD COUNT 8.1 10^3/uL (4.3-11.0)
[2022-03-28 03:16] LABS: ABG BASE EXCESS 4.6 MMOL/L (-2.5-2.5); ABG OXYGEN SATURATION 91 % (94-100); ABG PCO2 43 MMHG (35-45); ABG PH 7.44 (7.37-7.43); ABG PO2 59 MMHG (79-93)
[2022-03-28 03:18] LABS: ALLENS TEST ART LINE
[2022-03-28 03:19] LABS: INSPIRED O2 65%; PATIENT TEMP 36.7; VENTILATOR YES
[2022-03-28 03:25] LABS: POTASSIUM 4.1 MMOL/L (3.6-5.0)
[2022-03-28 03:27] LABS: CALCIUM 8.3 MG/DL (8.5-10.1)
[2022-03-28 03:31] LABS: CREATININE SERUM 0.95 MG/DL (0.60-1.30); PHOSPHORUS 3.2 MG/DL (2.3-4.7)
[2022-03-28 03:33] LABS: MAGNESIUM 1.9 MG/DL (1.6-2.4)
[2022-03-28] MEDS: KCL 20 MEQ TAB (K-DUR) PO SCH (05:48)
[2022-03-28] MEDS: POTASSIUM CL 10MEQ/50ML IVPB 50 ML IV SCH (05:48)
[2022-03-28] MEDS: MAGNESIUM 1 GM/100 ML IVPB 100 ML IV SCH (05:48)
[2022-03-28] MEDS: FLEET ENEMA ADULT 1 EA BTL PR SCH ×3 (05:49→22:03)
[2022-03-28] MEDS: fentaNYL DRIP PRE-MIX 250 ML IV SCH (06:02)
[2022-03-28] MEDS: FUROSEMIDE 40 MG/4 ML INJ (LASIX) IVP SCH ×2 (06:04→17:33)
[2022-03-28 06:30] VITALS: BP 117/51
--- NOTE | 2022-03-28 07:38 | Cardiology Progress Note ---
Subjective Date Seen by Provider: Mar 28, 2022 Time Seen by Provider: 07:34 Subjective/Events-last exam Patient was seen at bedside, sedated and intubated, has tracheostomy. Review of Systems General: Other (Unable to provide review of system) Objective-Cardiology Exam Last Set of Vital Signs Vital Signs 03/28/22 03/28/22 03/28/22 00:20 06:00 07:00 Temp 37.3 Pulse 69 Resp 20 Pulse Ox 97 O2 Delivery Mechanical Ventilator O2 Flow Rate 65.00 I&O Intake and Output 03/27/22 23:59 Intake Total 3285.1667 ml Output Total 4300 ml Balance -1014.8333 ml Intake Oral 0 ml IV Total 3285.1667 ml Output Urine Total 4300 ml General: Other (Sedated and intubated) HEENT: Atraumatic Neck: Supple, No JVD Heart: Regular Rate Abdomen: Normal Bowel Sounds Extremities: No Clubbing, No Cyanosis Skin: No Rashes, No Breakdown Neuro: Other (Sedated and intubated) Psych/Mental Status: Other (Sedated and intubated) Results Lab Laboratory Tests 03/28/22 03:08 A/P-Cardiology Admission Diagnosis Ventilator dependent respiratory failure Type II myocardial infarction Coronary artery disease Congestive heart failure, acute on chronic left ventricular systolic dysfunction Assessment/Plan Ventilator dependent respiratory failure, failed to weaning this Status post tracheostomy on March 26, 2022, PEG tube placement March 26, 2022 Possible transfer to long-term facility Congestive heart failure, acute left ventricular systolic dysfunction, ejection fraction 35 to 40% Responding well to diuresis. Minimal troponin elevation, type II myocardial infarction secondary to hypoxemia. Coronary artery disease, history of stenting done in [facility] in November 2021. COPD with acute decompensation Chronic renal insufficiency, currently stable continue to monitor Diabetes mellitus, followed and managed by primary care physician Hyperlipidemia Morbid obesity. PORSHA LEAL MD Mar 28, 2022 07:38
[2022-03-28] MEDS: LACRI-LUBE OPTHALMIC OINT 3.5 GM TUBE OU SCH ×3 (09:00→22:01)
[2022-03-28] MEDS: PANTOPRAZOLE 40 MG (PROTONIX) VIAL IV SCH (09:00)
--- NOTE | 2022-03-28 09:16 | Progress Note - Hospitalist ---
Subjective HPI/CC On Admission Date Seen by Provider: Mar 28, 2022 Patient is a 61-year-old -[place] male with past medical history of coronary artery disease, hypertension, hyperlipidemia,, COPD who presented to the emergency department due to hypoxia and chest pain. He was seen at the walk-in clinic at [facility] today and complained of chest pain to them and he was referred to the emergency department. He has been seen in the ER mul tiple times in the past week or so but has declined most work-up at those visits. This visit he did allow for labs and x-ray which revealed an NSTEMI. He was admitted for further management. Unfortunately overnight his respiratory status worsened and he required intubation. He is unable to provide me any history due to this and thus all history was obtained from the records. Subjective/Events-last exam Pt remains sedated on vent but weaning sedation. Opened eyes when I spoke to him. RN reports waking up some. Plan to start tube feeds this afternoon. Objective Exam Vital Signs Vital Signs Date Time Temp Pulse Resp B/P (MAP) Pulse Ox O2 Delivery O2 Flow Rate FiO2 03/28/22 08:00 65 03/28/22 08:00 76 37 97 Mechanical Ventilator 60.00 03/28/22 00:20 37.3 Capillary Refill : Less Than 3 Seconds General Appearance: Chronically ill, Obese Neck: Other (trach) Respiratory: Lungs Clear, Other (on vent) Cardiovascular: Regular Rate, Rhythm, No Murmur Gastrointestinal: Normal Bowel Sounds, Non Tender, Soft, Other (PEG) Neurologic/Psychiatric: Alert (opened eyes) Results/Procedures Lab Laboratory Tests 03/28/22 03:08 Patient resulted labs reviewed. Imaging: Reviewed Imaging Report Assessment/Plan Assessment and Plan Assess & Plan/Chief Complaint Acute hypercapnic and hypoxic respiratory failure COPD exacerbation with lower respiratory tract infection Trach/PEG 03/[address] Jessica Linder consulted for vent management- wean as able Completed course of abx Tube feeds to start today, discussed with RN, continue TPN until at goal for TF Referral sent to LTACH 03/26 NSTEMI CAD HTN HLD Likely Type II due to above Cardiology consulted, appreciate recs ASA and Plavix BB and joshua-i Echo with EF of 35% Ileus Surgery following Last documented BM 03/23- hopefully will improve with TF DMII Sliding Scale Insulin DVT ppx Lovenox Critical Care Ventilator Management Diagnosis/Problems Diagnosis/Problems (1) Acute respiratory failure Status: Acute Qualifiers: Respiratory failure complication: hypoxia and hypercapnia Qualified Codes: J96.01 - Acute respiratory failure with hypoxia; J96.02 - Acute respiratory failure with hypercapnia (2) CAD (coronary artery disease) Qualifiers: Coronary Disease-Associated Artery/Lesion type: unspecified vessel or lesion type [place] vs. transplanted heart: unspecified whether [place] or transplanted heart Associated angina: unspecified whether angina present Qualified Codes: I25.10 - Atherosclerotic heart disease of [place] coronary artery without angina pectoris (3) COPD (chronic obstructive pulmonary disease) Status: Acute Qualifiers: COPD type: COPD with acute lower respiratory infection Qualified Codes: J44.0 - Chronic obstructive pulmonary disease with (acute) lower respiratory infection (4) Essential (primary) hypertension Status: Chronic (5) HLD (hyperlipidemia) Status: Chronic Qualifiers: Hyperlipidemia type: unspecified Qualified Codes: E78.5 - Hyperlipidemia, unspecified (6) COPD with acute bronchitis Status: Acute JAIRO MURILLO MD Mar 28, 2022 09:16
[2022-03-28] MEDS: ASPIRIN 81 MG CHEW (CHILDREN'S ASA) PO SCH (09:51)
[2022-03-28] MEDS: ENALAPRILAT 2.5 MG/2 ML (VASOTEC) VIAL IV SCH ×2 (09:51→22:02)
[2022-03-28] MEDS: CLOPIDOGREL 75 MG (PLAVIX) TABLET PO SCH (09:51)
[2022-03-28 10:08] VITALS: BP 129/58
--- NOTE | 2022-03-28 11:58 | Tele-ICU Progress Note ---
Subjective Date Seen by a Provider: Mar 28, 2022 Time Seen by a Provider: 11:57 Subjective/Events-last exam (Tele-ICU Physician , Progress Note ) Service provided via interactive audio and video telecommunications E-CARE system to a patient admitted to ICU bed in [facility]. Available chart/ vitals / labs / Images reviewed Video assessment done using teleICU camera, rest of exam as per RN Discussed with RN Events overnight : Afebrile hemodynamically stable Respiratory - 65 I/O = VENT SETTINGS and ABG reviewed Sedation: RASS discussed with RN , - IV Fentany @ 50l and Propofol @ 20 , TG's 137, also on IV Precedex @ 0.4 NOT CANDIDATE for SBTreviewed possible contraindications including Cardiovascular Stability /Sedation Score / FI02/PEEP / ABG / CXR/ secretions Drips: tpn Pressors- no Consultants: Hospital course: (03/12) 61M Admitted for COPD/CHF, bronchitis. Hypercapenic. ?NSTEMI. INTUBATED in ICU (03/17) EXTUBATED AND REINTUBATED. Worsening pulmonary edema. (03/21) Needs KUB. Cannot do d/t weight. Surgery consulted. (03/22) EXTUBATED AND THEN REINTUBATED. Hypertensive (03/24) Large ngt output, tf on hold. 03/26-AC 26/Vt 500/FiO2 55%/ (03/26) s/p tracheostomy and PEG, TPN started A/P Acute resp failure - s/p ETT 03/12 , has been extubated x 2, reintubated on 03/22, TRACH 03/26 -AC AC 20, Vt 600, Peak Paw in 20s 60 % PEEP 8 = woill decrease rr to 16 -Does not need much suctioning -03/25 tried on sedation holiday but had to be put back due to anxiety, big rise in SBP to 200, slowly cutting down and trying to wean off - WILL CHANGE TO FENTANYL PATCH AND ATIVAN PRN Ac systolic CHF. CAD - echo on 03/12/22: LVEF 35-40%, mod diffuse hypokinesis of LV -on lasix 80 bid - as per cards COPD suspercted - acute on chronic exacerbation Anemia 03/26 - Hb drop 3 g - follow , no acute bleeding - stable HB last 3 days Hypernatremia - with diuresis , IVF stopped - adjust NA in TPN , start H2O allowed by Sx trough PEG GAEL at presentation - resolved DM - ISS TF have been on hold due to large NG output and plans for PEG - - started on TPN -to statt throphic TF and advance as tolerated Lines : triple PICC , (Central Line Necessity Reviewed) Jenkins:c+ OG: Nutrition: Analgesia: Anxiety/ delirium VTE Prophylaxis: viktoria Stress Ulcer Prophylaxis: PPI Plans in collaboration with bedside consultants and IM MDs. discussed with Dr Walker Discussed with RN to reach out if any questions or concerns A total of 32 minutes of critical care time was devoted to this patient today, required to treat and/or prevent further deterioration of critical care condition ( as above ) . Sepsis Event Evaluation Height, Weight, BMI Height: '" Weight: lbs. oz. kg; 48.85 BMI Method: Exam Exam Patient acknowledged, consented, and participated in this virtual visit which was conducted using real time audio/video Vital Signs Date Time Temp Pulse Resp B/P (MAP) Pulse Ox O2 Delivery O2 Flow Rate FiO2 03/28/22 10:15 Mechanical Ventilator 60.00 03/28/22 10:08 84 21 99 60 03/28/22 10:00 87 26 100 Mechanical Ventilator 60.00 03/28/22 09:00 84 13 94 Mechanical Ventilator 60.00 03/28/22 08:00 65 03/28/22 08:00 76 37 97 Mechanical Ventilator 60.00 03/28/22 08:00 94 Mechanical Ventilator 65 03/28/22 07:25 Mechanical Ventilator 60.00 03/28/22 07:00 69 03/28/22 07:00 69 69 97 Mechanical Ventilator 65.00 03/28/22 06:02 73 124/58 03/28/22 06:02 73 124/58 03/28/22 06:00 71 20 97 Mechanical Ventilator 65.00 03/28/22 05:47 73 124/58 03/28/22 05:37 73 124/58 03/28/22 05:00 73 21 99 Mechanical Ventilator 65.00 03/28/22 05:00 73 124/58 03/28/22 04:00 94 Mechanical Ventilator 65 03/28/22 04:00 65 03/28/22 04:00 73 21 100 Mechanical Ventilator 65.00 03/28/22 03:00 74 21 96 Mechanical Ventilator 65.00 03/28/22 02:01 76 20 96 65 03/28/22 02:00 77 21 96 Mechanical Ventilator 65.00 03/28/22 01:52 77 125/57 03/28/22 01:00 79 21 97 Mechanical Ventilator 65.00 03/28/22 01:00 80 03/28/22 00:54 75 127/70 03/28/22 00:20 37.3 03/28/22 00:00 83 24 96 Mechanical Ventilator 65.00 03/28/22 00:00 65 03/27/22 23:59 94 Mechanical Ventilator 65 03/27/22 23:00 75 21 96 Mechanical Ventilator 65.00 03/27/22 22:59 75 21 94 65 03/27/22 22:38 36.3 03/27/22 22:00 74 21 96 Mechanical Ventilator 65.00 03/27/22 21:39 72 135/72 03/27/22 21:21 36.3 03/27/22 21:00 74 12 96 Mechanical Ventilator 65.00 03/27/22 20:15 Mechanical Ventilator 65.00 03/27/22 20:14 72 135/72 03/27/22 20:00 93 Mechanical Ventilator 65 03/27/22 20:00 75 20 93 Mechanical Ventilator 65.00 03/27/22 19:05 66 20 93 65 03/27/22 19:00 66 03/27/22 19:00 76 26 94 Mechanical Ventilator 65.00 03/27/22 19:00 65 03/27/22 18:00 65 26 96 Mechanical Ventilator 65.00 03/27/22 17:15 36.7 03/27/22 17:06 62 127/58 03/27/22 17:00 61 21 97 Mechanical Ventilator 65.00 03/27/22 16:05 36.6 03/27/22 16:00 63 20 97 Mechanical Ventilator 65.00 03/27/22 15:40 97 Mechanical Ventilator 65 03/27/22 15:39 65 03/27/22 15:38 69 132/61 03/27/22 15:25 66 21 97 65 03/27/22 15:00 64 8 98 Mechanical Ventilator 65.00 03/27/22 14:00 71 8 97 Mechanical Ventilator 65.00 03/27/22 13:00 68 03/27/22 13:00 68 24 96 Mechanical Ventilator 65.00 03/27/22 12:00 65 12/14/22 12:00 67 21 95 Mechanical Ventilator 65.00 03/27/22 12:00 97 Mechanical Ventilator 65 03/27/22 12:00 36.8 I & O 03/28/22 07:00 Intake Total 3035.1667 ml Output Total 4575 ml Balance -1539.8333 ml Height & Weight Height: '" Weight: lbs. oz. kg; 48.85 BMI Method: General Appearance: Chronically ill, Obese HEENT: TMs Normal Neck: Other (trach) Respiratory: Lungs Clear, Other (on vent) Cardiovascular: Regular Rate, Rhythm, No Murmur Capillary Refill: Less Than 3 Seconds Peripheral Pulses: 2+ Dorsalis Pedis (R), 2+ Left Dors-Pedis (L) Gastrointestinal: normal bowel sounds, non tender, soft, other (peg site intact, no redness/erythema) Extremity: Normal Capillary Refill Neurologic/Psychiatric: Alert (opened eyes) Skin: Normal Color Lymphatic: No Adenopathy Results Lab Laboratory Tests 03/26/22 17:30 03/27/22 03:55 03/28/22 03:08 Assessment/Plan Assessment/Plan 1 MILAGROS HUBER MD Mar 28, 2022 11:58
[2022-03-28 13:45] VITALS: BP 120/53
[2022-03-28] MEDS: LORazepam INJ 2 MG/ML (ATIVAN) VIAL IVP PRN (16:19)
[2022-03-28] MEDS: [UNRECOGNIZED DRUG - OTHER] IV SCH ×10 (17:33)
[2022-03-28] MEDS: POTASSIUM CHLORIDE IV SCH ×10 (17:33)
[2022-03-28] MEDS: SODIUM ACETATE IV SCH ×10 (17:33)
[2022-03-28] MEDS: fentaNYL PATCH 50 MCG (DURAGESIC) TD SCH (17:48)
[2022-03-28 19:11] VITALS: BP 120/53
[2022-03-28 23:29] VITALS: BP 118/48
[2022-03-28] MEDS: NS IV 1000 ML 1,000 ML IV SCH (23:34)
[2022-03-29] MEDS: meTOprolol 5 MG/5 ML (LOPRESSOR) VIAL IV SCH ×4 (00:08→18:30)
[2022-03-29] MEDS: PROPOFOL DRIP (ICU) 100 ML IV SCH ×3 (01:35→23:21)
[2022-03-29] MEDS: DexMEDEtomidine 250 ML DRIP 250 ML IV SCH ×4 (02:13→22:39)
[2022-03-29 03:30] VITALS: BP 124/64
[2022-03-29] MEDS: RT-ALBUTEROL/IPRATROPIUM 3 ML (DUONEB) VIAL INH SCH ×6 (04:31→22:27)
[2022-03-29 05:06] LABS: ABG BASE EXCESS 6.6 MMOL/L (-2.5-2.5); ABG OXYGEN SATURATION 91 % (94-100); ABG PCO2 47 MMHG (35-45); ABG PH 7.43 (7.37-7.43); ABG PO2 63 MMHG (79-93); ABG TCO2 32.2 MMOL/L (21.0-31.0); ALLENS TEST YES-POS; INSPIRED O2 50%; PATIENT TEMP 37.5; VENTILATOR YES
[2022-03-29 05:11] LABS: BASOPHILS # (AUTO) 0.1 10^3/uL (0.0-0.1); BASOPHILS % (AUTO) 1 % (0-10); EOSINOPHILS # (AUTO) 0.1 10^3/uL (0.0-0.3); EOSINOPHILS % (AUTO) 2 % (0-10); HEMATOCRIT 35 % (40-54); HEMOGLOBIN 11.4 g/dL (13.3-17.7); LYMPHOCYTES # (AUTO) 1.8 10^3/uL (1.0-4.0); LYMPHOCYTES % (AUTO) 21 % (12-44); MEAN CORPUSCULAR HEMOGLOBIN 32 pg (25-34); MEAN CORPUSCULAR HGB CONC 33 g/dL (32-36); MEAN CORPUSCULAR VOLUME 98 fL (80-99); MEAN PLATELET VOLUME 10.3 fL (9.0-12.2); MONOCYTES # (AUTO) 1.1 10^3/uL (0.0-1.0); MONOCYTES % (AUTO) 13 % (0-12); NEUTROPHILS # (AUTO) 5.3 10^3/uL (1.8-7.8); NEUTROPHILS % (AUTO) 63 % (42-75); PLATELET COUNT 267 10^3/uL (130-400); WHITE BLOOD COUNT 8.4 10^3/uL (4.3-11.0)
[2022-03-29 05:20] LABS: POTASSIUM 4.4 MMOL/L (3.6-5.0)
[2022-03-29 05:22] LABS: CALCIUM 8.4 MG/DL (8.5-10.1)
[2022-03-29] MEDS: MAGNESIUM 1 GM/100 ML IVPB 100 ML IV SCH (05:50)
[2022-03-29] MEDS: POTASSIUM CL 10MEQ/50ML IVPB 50 ML IV SCH (05:50)
[2022-03-29] MEDS: FLEET ENEMA ADULT 1 EA BTL PR SCH ×2 (05:51→14:55)
[2022-03-29] MEDS: KCL 20 MEQ TAB (K-DUR) PO SCH (05:51)
[2022-03-29] MEDS: METOCLOPRAMIDE INJ 10 MG/2 ML (REGLAN) IVP SCH ×3 (05:54→18:30)
[2022-03-29] MEDS: FUROSEMIDE 40 MG/4 ML INJ (LASIX) IVP SCH ×2 (05:54→18:02)
[2022-03-29] MEDS: fentaNYL DRIP PRE-MIX 250 ML IV SCH (06:57)
[2022-03-29 07:45] VITALS: BP 135/56
[2022-03-29] MEDS: CLOPIDOGREL 75 MG (PLAVIX) TABLET PO SCH (08:20)
[2022-03-29] MEDS: PANTOPRAZOLE 40 MG (PROTONIX) VIAL IV SCH (08:20)
[2022-03-29] MEDS: ASPIRIN 81 MG CHEW (CHILDREN'S ASA) PO SCH (08:20)
[2022-03-29] MEDS: niCARdipine IV (Pyxis drip kit 50 MG in NS (IVPB) 230 ML IV SCH ×2 (08:20→15:33)
[2022-03-29] MEDS: LACRI-LUBE OPTHALMIC OINT 3.5 GM TUBE OU SCH ×3 (08:20→20:58)
[2022-03-29] MEDS: 1/2 NS IV SOLUTION 1,000 ML IV SCH ×2 (08:20→18:49)
--- NOTE | 2022-03-29 08:44 | Progress Note - Cardiology ---
Cardiology SOAP Progress Note Objective: I&O/Vital Signs 03/31/22 03/31/22 03/31/22 03/31/22 22:11 22:14 23:15 23:58 Temp 36.6 Pulse 54 62 62 Resp 16 17 16 B/P (MAP) Pulse Ox 97 98 97 O2 Delivery Mechanical Ventilator Mechanical Ventilator O2 Flow Rate 50.00 50.00 FiO2 50 03/31/22 04/01/22 04/01/22 04/01/22 23:59 00:00 00:00 01:00 Pulse 61 50 Resp 16 16 B/P (MAP) Pulse Ox 98 99 98 O2 Delivery Mechanical Ventilator Mechanical Ventilator Mechanical Ventilator O2 Flow Rate 50.00 50.00 FiO2 50 50 04/01/22 04/01/22 04/01/22 04/01/22 01:00 02:00 02:21 03:00 Pulse 50 58 52 54 Resp 16 16 16 B/P (MAP) Pulse Ox 98 98 99 O2 Delivery Mechanical Ventilator Mechanical Ventilator O2 Flow Rate 50.00 50.00 FiO2 50 04/01/22 04/01/22 04/01/22 04/01/22 04:00 04:00 04:00 04:30 Temp 36.2 Pulse 50 Resp 16 B/P (MAP) Pulse Ox 97 99 O2 Delivery Mechanical Ventilator Mechanical Ventilator O2 Flow Rate 50.00 FiO2 50 50 04/01/22 04/01/22 04/01/22 04/01/22 05:00 06:00 07:00 07:11 Pulse 47 52 51 49 Resp 16 16 B/P (MAP) Pulse Ox 98 97 98 O2 Delivery Mechanical Ventilator Mechanical Ventilator Mechanical Ventilator O2 Flow Rate 50.00 50.00 50.00 04/01/22 04/01/22 04/01/22 04/01/22 07:32 07:32 07:34 07:35 Temp 36.2 Pulse 50 56 51 Resp 16 B/P (MAP) 140/58 143/61 Pulse Ox 98 FiO2 50 04/01/22 04/01/22 08:00 08:34 Pulse 58 59 B/P (MAP) 149/67 Pulse Ox 94 O2 Delivery Mechanical Ventilator O2 Flow Rate 50.00 04/01/22 00:00 Intake Total 2267.5867 ml Output Total 2650 ml Balance -382.4133 ml Constitutional: other (on mec vent, ventilated through trach, unresponsive) Respiratory: other (Intubated, on mech vent, non-communicative; tracheostomy in place) Cardiovascular: regular rate-rhythm Gastrointestional: soft, round; No audible bowel sounds; other (s/p PEG) Extremities: no lower extremity edema bilateral Neurologic/Psychiatric: other (unresponsive) Skin: No rash on exposed areas, No ulcerations on exposed areas Results/Procedures: Labs Laboratory Tests 03/31/22 10:37: Glucometer 274H 03/31/22 15:24: Glucometer 304H 03/31/22 20:57: Glucometer 295H 04/01/22 04:45: Blood Gas Puncture Site LEFT ARTLINE, Blood Gas Patient Temperature 36.2, Arterial Blood pH 7.45H, Arterial Blood Partial Pressure CO2 47H, Arterial Blood Partial Pressure O2 58L, Arterial Blood HCO3 32H, Arterial Blood Total CO2 33.6H , Arterial Blood Oxygen Saturation 91L, Arterial Blood Base Excess 7.7H, Johnathon Test YES-POS, Blood Gas Ventilator Setting YES, Blood Gas Inspired Oxygen 50% 04/01/22 05:05: White Blood Count 8.5, Red Blood Count 3.42L, Hemoglobin 10.9L, Hematocrit 34L, Mean Corpuscular Volume 98, Mean Corpuscular Hemoglobin 32, Mean Corpuscular Hemoglobin Concent 32, Red Cell Distribution Width 14.3, Platelet Count 219, Mean Platelet Volume 10.9, Immature Granulocyte % (Auto) 1, Neutrophils (%) (Auto) 64, Lymphocytes (%) (Auto) 21, Monocytes (%) (Auto) 11, Eosinophils (%) (Auto) 3, Basophils (%) (Auto) 1, Neutrophils # (Auto) 5.4, Lymphocytes # (Auto) 1.7, Monocytes # (Auto) 0.9, Eosinophils # (Auto) 0.2, Basophils # (Auto) 0.1, Immature Granulocyte # (Auto) 0.1, Sodium Level 144, Potassium Level 4.1, Chloride Level 105, Carbon Dioxide Level 32, Anion Gap 7, Blood Urea Nitrogen 43H, Creatinine 0.94, Estimat Glomerular Filtration Rate 92, BUN/Creatinine Ratio 46, Glucose Level 313H, Calcium Level 8.4L, Phosphorus Level 3.8, Magnesium Level 2.1 Microbiology 03/13/22 MRSA Screen - Final, Complete MRSA not isolated 03/12/22 Blood Culture - Final, Complete No growth A/P: Assessment: Acute and prolonged resp failure requiring continuing mech vent - extubated on 03/17/22 and reintubated the same day - s/p trach on 03/26/22 - s/p PEG on 03/26/22 Ac systolic CHF - echo on 03/12/22: LVEF 35-40%, mod diffuse hypokinesis of LV Minimal troponin elevation - Type 2 MT d/t hypoxia and transient hypotension CAD with stents x 2 - Family at the bedside reports he had stents done at [facility] in [place], [place] in Nov 2021 at which time he had an MT COPD per ED documentation - acute on chronic exacerbation Documented h/o HTN Renal insufficiency at presentation - resolved with hydration DM per ED documentation HLD per ED documentation Probable NATALIE - advise out pt w/u if he recovers from his current resp failure Morbid obesity - BMI approx 49 Plan: * continue diuretics * Continue iv enalaprilat and beta-mj as tolerated by bp * Continue DAPT d/t CAD and family report of recent stent placement in [place] in November 2021 * Consider spironolactone and SGLT2-inhib when able to take oral meds * Sleep studies when able to * Continue DVT prophylaxis * Monitor labs closely * Prognosis poor, given continuing resp failure that is unresponsive to treatment * Awaiting LTAC placement in either [place] or [place] FREDDY ERICKSON Mar 29, 2022 08:43
--- NOTE | 2022-03-29 08:49 | Occ Therapy Progress Note ---
Therapy Progress Note OT orders received and chart reviewed. Pt is currently intubated/sedated. OT will continue to check pt's status and initiate evaluation once patient is able to actively participate in therapy. Eunice Slade OT Mar 29, 2022 08:49
--- NOTE | 2022-03-29 09:01 | Progress Note - Hospitalist ---
Subjective HPI/CC On Admission Date Seen by Provider: Mar 29, 2022 Patient is a 61-year-old -[place] male with past medical history of coronary artery disease, hypertension, hyperlipidemia,, COPD who presented to the emergency department due to hypoxia and chest pain. He was seen at the walk-in clinic at [facility] and complained of chest pain to them and he was referred to the emergency department. He has been seen in the ER mul tiple times in the past week or so but has declined most work-up at those visits. This visit he did allow for labs and x-ray which revealed an NSTEMI. He was admitted for further management. Unfortunately overnight his respiratory status worsened and he required intubation. He is unable to provide me any history due to this and thus all history was obtained from the records. Subjective/Events-last exam Pt remains sedated on vent but did seem to smile at me. Objective Exam Vital Signs Vital Signs Date Time Temp Pulse Resp B/P (MAP) Pulse Ox O2 Delivery O2 Flow Rate FiO2 03/29/22 08:00 72 97 Mechanical Ventilator 50.00 03/29/22 07:45 17 50 03/29/22 07:31 37.4 Capillary Refill : Less Than 3 Seconds General Appearance: No Apparent Distress, WD/WN Neck: Other (trach) Respiratory: No Accessory Muscle Use Cardiovascular: Regular Rate, Rhythm, No Murmur Gastrointestinal: Soft, Other (PEG) Neurologic/Psychiatric: Other (sedated but opened eyes, seemed to smile for a moment even) Results/Procedures Lab Laboratory Tests 03/29/22 04:50 Patient resulted labs reviewed. Imaging: Reviewed Imaging Report Assessment/Plan Assessment and Plan Assess & Plan/Chief Complaint Acute hypercapnic and hypoxic respiratory failure COPD exacerbation with lower respiratory tract infection Trach/PEG 03/[address] Jessica Linder consulted for vent management- wean as able Completed course of abx Tube feeds per dietary recs, continue TPN until at goal for TF Referral sent to multiple LTACHs 03/26- awaiting response/acceptance NSTEMI CAD HTN HLD Likely Type II due to above Cardiology consulted, appreciate recs ASA and Plavix BB and joshua-i as BP allows Echo with EF of 35% Ileus Surgery following Last documented BM 03/23- hopefully will improve with TF DMII Sliding Scale Insulin DVT ppx Lovenox Critical Care Ventilator Management Diagnosis/Problems Diagnosis/Problems (1) Acute respiratory failure Status: Acute Qualifiers: Respiratory failure complication: hypoxia and hypercapnia Qualified Codes: J96.01 - Acute respiratory failure with hypoxia; J96.02 - Acute respiratory failure with hypercapnia (2) CAD (coronary artery disease) Qualifiers: Coronary Disease-Associated Artery/Lesion type: unspecified vessel or lesion type [place] vs. transplanted heart: unspecified whether [place] or transplanted heart Associated angina: unspecified whether angina present Qualified Codes: I25.10 - Atherosclerotic heart disease of [place] coronary artery without angina pectoris (3) COPD (chronic obstructive pulmonary disease) Status: Acute Qualifiers: COPD type: COPD with acute lower respiratory infection Qualified Codes: J44.0 - Chronic obstructive pulmonary disease with (acute) lower respiratory infection (4) Essential (primary) hypertension Status: Chronic (5) HLD (hyperlipidemia) Status: Chronic Qualifiers: Hyperlipidemia type: unspecified Qualified Codes: E78.5 - Hyperlipidemia, unspecified (6) COPD with acute bronchitis Status: Acute JAIRO MURILLO MD Mar 29, 2022 09:01
--- NOTE | 2022-03-29 11:26 | Physical Therapy Progress Note ---
Therapy Progress Note Order for PT evaluation received. Patient in currently intubated and sedated. Will monitor patient and start when appropriate and patient is able to participate. NILSA GONZALEZ PT Mar 29, 2022 11:26
[2022-03-29 11:59] VITALS: BP 143/67
[2022-03-29 14:49] VITALS: BP 147/64
[2022-03-29] MEDS: ENOXAPARIN 40 MG/0.4 ML (LOVENOX) SYR SQ SCH ×2 (14:50→23:21)
[2022-03-29] MEDS: ENALAPRILAT 2.5 MG/2 ML (VASOTEC) VIAL IV SCH ×2 (14:55→20:58)
--- NOTE | 2022-03-29 15:04 | Tele-ICU Progress Note ---
Subjective Date Seen by a Provider: Mar 29, 2022 Time Seen by a Provider: 11:01 Subjective/Events-last exam (Tele-ICU Physician , Progress Note ) Service provided via interactive audio and video telecommunications E-CARE system to a patient admitted to ICU bed in [facility]. Available chart/ vitals / labs / Images reviewed Video assessment done using teleICU camera, rest of exam as per RN Discussed with RN Events overnight : Afebrile hemodynamically stable Respiratory - 65 I/O = VENT SETTINGS and ABG reviewed Sedation: RASS discussed with RN , - IV Fentany @ 50l and Propofol @ 20 , TG's 137, also on IV Precedex @ 0.4 NOT CANDIDATE for SBTreviewed possible contraindications including Cardiovascular Stability /Sedation Score / FI02/PEEP / ABG / CXR/ secretions Drips: tpn Pressors- no Consultants: Hospital course: (03/12) 61M Admitted for COPD/CHF, bronchitis. Hypercapenic. ?NSTEMI. INTUBATED in ICU (03/17) EXTUBATED AND REINTUBATED. Worsening pulmonary edema. (03/21) Needs KUB. Cannot do d/t weight. Surgery consulted. (03/22) EXTUBATED AND THEN REINTUBATED. Hypertensive (03/24) Large ngt output, tf on hold. 03/26-AC 26/Vt 500/FiO2 55%/ (03/26) s/p tracheostomy and PEG, TPN started A/P Acute resp failure - s/p ETT 03/12 , has been extubated x 2, reintubated on 03/22, TRACH 03/26 -AC AC 20, Vt 600, Peak Paw in 20s 60 % PEEP 8 = woill decrease rr to 16 -Does not need much suctioning -03/25 tried on sedation holiday but had to be put back due to anxiety, big rise in SBP to 200, slowly cutting down and trying to wean off - WILL CONT FENTANYL PATCH AND ATIVAN PRN , Ac systolic CHF. CAD - echo on 03/12/22: LVEF 35-40%, mod diffuse hypokinesis of LV -on lasix 80 bid - as per cards COPD suspercted - acute on chronic exacerbation Anemia 03/26 - Hb drop 3 g - follow , no acute bleeding - stable HB last 3 days Hypernatremia - with diuresis , IVF stopped - adjust NA in TPN , start H2O GAEL at presentation - resolved DM - ISS TF have been on hold due to large NG output and plans for PEG - - started on TPN -to statt throphic TF and advance as tolerated - @ 20cc/h - still high residuals , cont reglan Lines : triple PICC , (Central Line Necessity Reviewed) Jenkins:c+ OG: Nutrition: Analgesia: Anxiety/ delirium VTE Prophylaxis: viktoria Stress Ulcer Prophylaxis: PPI Plans in collaboration with bedside consultants and IM MDs. discussed with Dr Walker Discussed with RN to reach out if any questions or concerns A total of 31 minutes of critical care time was devoted to this patient today, required to treat and/or prevent further deterioration of critical care condition ( as above ) . Sepsis Event Evaluation Height, Weight, BMI Height: '" Weight: lbs. oz. kg; 48.85 BMI Method: Exam Exam Patient acknowledged, consented, and participated in this virtual visit which was conducted using real time audio/video Vital Signs Date Time Temp Pulse Resp B/P (MAP) Pulse Ox O2 Delivery O2 Flow Rate FiO2 03/29/22 14:49 81 19 97 50 03/29/22 14:00 81 21 96 Mechanical Ventilator 50.00 03/29/22 13:00 85 22 97 Mechanical Ventilator 50.00 03/29/22 13:00 84 03/29/22 12:00 80 18 97 Mechanical Ventilator 50.00 03/29/22 11:59 80 19 96 50 03/29/22 11:00 86 20 96 Mechanical Ventilator 50.00 03/29/22 10:00 92 27 96 Mechanical Ventilator 50.00 03/29/22 09:00 87 28 96 Mechanical Ventilator 50.00 03/29/22 08:00 94 Mechanical Ventilator 50 03/29/22 08:00 72 97 Mechanical Ventilator 50.00 03/29/22 07:45 72 17 97 50 03/29/22 07:31 37.4 03/29/22 07:00 75 97 Mechanical Ventilator 50.00 03/29/22 07:00 74 03/29/22 06:57 70 124/64 03/29/22 06:24 70 124/64 03/29/22 06:00 70 21 98 Mechanical Ventilator 50.00 03/29/22 05:00 70 20 96 Mechanical Ventilator 50.00 03/29/22 04:30 37.5 03/29/22 04:00 70 17 96 Mechanical Ventilator 50.00 03/29/22 04:00 94 Mechanical Ventilator 50 03/29/22 04:00 50 03/29/22 03:30 71 18 95 50 03/29/22 03:00 70 19 94 Mechanical Ventilator 50.00 03/29/22 02:13 68 118/48 03/29/22 02:00 65 21 96 Mechanical Ventilator 50.00 03/29/22 01:35 68 118/48 03/29/22 01:00 70 03/29/22 01:00 67 17 96 Mechanical Ventilator 50.00 03/29/22 01:00 67 17 96 Mechanical Ventilator 50.00 03/29/22 00:00 37.2 03/29/22 00:00 50 03/28/22 23:59 94 Mechanical Ventilator 50 03/28/22 23:29 68 18 97 50 03/28/22 23:00 69 18 96 Mechanical Ventilator 50.00 03/28/22 22:00 70 22 97 Mechanical Ventilator 50.00 03/28/22 22:00 71 120/53 03/28/22 21:00 75 20 97 Mechanical Ventilator 50.00 03/28/22 20:27 71 120/53 03/28/22 20:00 94 Mechanical Ventilator 50 03/28/22 20:00 37.4 03/28/22 20:00 75 22 97 Mechanical Ventilator 50.00 03/28/22 20:00 50 03/28/22 19:11 71 20 99 50 03/28/22 19:00 72 21 97 Mechanical Ventilator 50.00 03/28/22 19:00 70 03/28/22 18:00 72 96 Mechanical Ventilator 50.00 03/28/22 17:00 72 97 Mechanical Ventilator 50.00 03/28/22 16:00 37.2 03/28/22 16:00 50 03/28/22 16:00 94 Mechanical Ventilator 65 03/28/22 16:00 72 97 Mechanical Ventilator 50.00 I & O 03/29/22 07:00 Intake Total 220 ml Output Total 8450 ml Balance -8230 ml Height & Weight Height: '" Weight: lbs. oz. kg; 48.85 BMI Method: General Appearance: No Apparent Distress, WD/WN HEENT: TMs Normal Neck: Other (trach) Respiratory: No Accessory Muscle Use Cardiovascular: Regular Rate, Rhythm, No Murmur Capillary Refill: Less Than 3 Seconds Peripheral Pulses: 2+ Dorsalis Pedis (R), 2+ Left Dors-Pedis (L) Gastrointestinal: normal bowel sounds, non tender, soft, other (peg site intact, no redness/erythema) Extremity: Normal Capillary Refill Neurologic/Psychiatric: Other (sedated but opened eyes, seemed to smile for a moment even) Skin: Normal Color Lymphatic: No Adenopathy Results Lab Laboratory Tests 03/28/22 03:08 03/29/22 04:50 Assessment/Plan Assessment/Plan 1 MILAGROS HUBER MD Mar 29, 2022 15:04
[2022-03-29] MEDS: inSUlin ASPART (NovoLOG) 1 UNIT/0.01 ML (CHARGE PER UNIT) SC SCH ×2 (15:32→20:58)
[2022-03-29] MEDS ORDERED: POTASSIUM CHLORIDE IV SCH ×11 (17:00)
[2022-03-29] MEDS ORDERED: [UNRECOGNIZED DRUG - OTHER] IV SCH ×11 (17:00)
[2022-03-29] MEDS ORDERED: SODIUM ACETATE IV SCH ×11 (17:00)
--- NOTE | 2022-03-29 17:23 | Progress Note - Cardiology ---
Cardiology SOAP Progress Note Subjective: on mec vent, ventilated through trach, unresponsive Objective: I&O/Vital Signs 03/29/22 03/29/22 03/29/22 03/29/22 06:00 06:24 06:57 07:00 Pulse 70 70 70 74 Resp 21 B/P (MAP) 124/64 124/64 Pulse Ox 98 O2 Delivery Mechanical Ventilator O2 Flow Rate 50.00 03/29/22 03/29/22 03/29/22 03/29/22 07:00 07:31 07:45 08:00 Temp 37.4 Pulse 75 72 72 Resp 17 B/P (MAP) Pulse Ox 97 97 97 O2 Delivery Mechanical Ventilator Mechanical Ventilator O2 Flow Rate 50.00 50.00 FiO2 50 03/29/22 03/29/22 03/29/22 03/29/22 08:00 09:00 10:00 11:00 Pulse 87 92 86 Resp 28 27 20 B/P (MAP) Pulse Ox 94 96 96 96 O2 Delivery Mechanical Ventilator Mechanical Ventilator Mechanical Ventilator Mechanical Ventilator O2 Flow Rate 50.00 50.00 50.00 FiO2 50 03/29/22 03/29/22 03/29/22 03/29/22 11:59 12:00 12:00 13:00 Pulse 80 80 84 Resp 19 18 B/P (MAP) Pulse Ox 96 97 94 O2 Delivery Mechanical Ventilator Mechanical Ventilator O2 Flow Rate 50.00 FiO2 50 50 03/29/22 03/29/22 03/29/22 03/29/22 13:00 14:00 14:49 15:00 Pulse 85 81 81 80 Resp 22 21 19 26 B/P (MAP) Pulse Ox 97 96 97 97 O2 Delivery Mechanical Ventilator Mechanical Ventilator Mechanical Ventilator O2 Flow Rate 50.00 50.00 50.00 FiO2 50 03/29/22 03/29/22 03/29/22 03/29/22 15:08 15:26 16:00 16:00 Temp 36.9 Pulse 76 Resp 27 B/P (MAP) Pulse Ox 94 97 O2 Delivery Mechanical Ventilator Mechanical Ventilator O2 Flow Rate 50.00 FiO2 50 50 03/29/22 00:00 Intake Total 120 ml Output Total 5900 ml Balance -5780 ml Constitutional: other (on mech vent, ventilated through trach, unresponsive) Respiratory: other (Intubated, on mech vent, non-communicative; tracheostomy in place) Cardiovascular: regular rate-rhythm Gastrointestional: soft, round; No audible bowel sounds; other (s/p PEG) Extremities: no lower extremity edema bilateral Neurologic/Psychiatric: other (unresponsive) Skin: No rash on exposed areas, No ulcerations on exposed areas Results/Procedures: Labs Laboratory Tests 03/28/22 18:41: Glucometer 208H 03/29/22 00:17: Glucometer 252H 03/29/22 04:50: White Blood Count 8.4, Red Blood Count 3.54L, Hemoglobin 11.4L, Hematocrit 35L, Mean Corpuscular Volume 98, Mean Corpuscular Hemoglobin 32, Mean Corpuscular Hemoglobin Concent 33, Red Cell Distribution Width 14.6H, Platelet Count 267, Mean Platelet Volume 10.3, Immature Granulocyte % (Auto) 1, Neutrophils (%) (Auto) 63, Lymphocytes (%) (Auto) 21, Monocytes (%) (Auto) 13H, Eosinophils (%) (Auto) 2, Basophils (%) (Auto) 1, Neutrophils # (Auto) 5.3, Lymphocytes # (Auto) 1.8, Monocytes # (Auto) 1.1H, Eosinophils # (Auto) 0.1, Basophils # (Auto) 0.1, Immature Granulocyte # (Auto) 0.1, Blood Gas Puncture Site ARTLINE, Blood Gas Patient Temperature 37.5, Arterial Blood pH 7.43, Arterial Blood Partial Pressure CO2 47H, Arterial Blood Partial Pressure O2 63L, Arterial Blood HCO3 31H, Arterial Blood Total CO2 32.2H, Arterial Blood Oxygen Saturation 91L, Arterial Blood Base Excess 6.6H, Johnathon Test YES-POS, Blood Gas Ventilator Setting YES, Blood Gas Inspired Oxygen 50%, Sodium Level 144, Potassium Level 4.4, Chloride Level 108H, Carbon Dioxide Level 25, Anion Gap 11, Blood Urea Nitrogen 35H, Creatinine 1.00, Estimat Glomerular Filtration Rate 86, BUN/Creatinine Ratio 35, Glucose Level 288H, Calcium Level 8.4L, Phosphorus Level 3.0, Magnesium Level 2.0, Triglycerides Level 93 03/29/22 12:11: Glucometer 290H Microbiology 03/13/22 MRSA Screen - Final, Complete MRSA not isolated 03/12/22 Blood Culture - Final, Complete No growth Laboratory Tests 03/28/22 03:08 03/29/22 04:50 A/P: Assessment: Acute and prolonged resp failure requiring continuing mech vent - extubated on 03/17/22 and reintubated the same day - s/p trach on 03/26/22 - s/p PEG on 03/26/22 Ac systolic CHF - echo on 03/12/22: LVEF 35-40%, mod diffuse hypokinesis of LV Minimal troponin elevation - Type 2 VT d/t hypoxia and transient hypotension CAD with stents x 2 - Family at the bedside reports he had stents done at [facility] in [place], [place] in Nov 2021 at which time he had an VT COPD per ED documentation - acute on chronic exacerbation Documented h/o HTN Renal insufficiency at presentation - resolved with hydration DM per ED documentation HLD per ED documentation Probable NATALIE - advise out pt w/u if he recovers from his current resp failure Morbid obesity - BMI approx 49 Plan: * continue diuretics * Continue iv enalaprilat and beta-mj as tolerated by bp * Continue DAPT d/t CAD and family report of recent stent placement in [place] in November 2021 * Consider spironolactone and SGLT2-inhib when able to take oral meds * Sleep studies when able to * Continue DVT prophylaxis * Monitor labs closely * Prognosis poor, given continuing resp failure that is unresponsive to tr eatment * Awaiting LTAC placement in either [place] or [place] MD [facility] Mar 29, 2022 17:23
[2022-03-29 19:20] VITALS: BP 165/70
[2022-03-29 22:27] VITALS: BP 147/59
[2022-03-30] MEDS: METOCLOPRAMIDE INJ 10 MG/2 ML (REGLAN) IVP SCH ×5 (00:23→23:17)
[2022-03-30] MEDS: meTOprolol 5 MG/5 ML (LOPRESSOR) VIAL IV SCH ×5 (00:23→23:17)
[2022-03-30] MEDS: FLEET ENEMA ADULT 1 EA BTL PR SCH ×4 (00:54→22:57)
[2022-03-30] MEDS: NS IV 1000 ML 1,000 ML IV SCH ×2 (00:54→22:57)
[2022-03-30 02:36] VITALS: BP 147/50
[2022-03-30] MEDS: RT-ALBUTEROL/IPRATROPIUM 3 ML (DUONEB) VIAL INH SCH ×6 (02:36→21:33)
[2022-03-30] MEDS: DexMEDEtomidine 250 ML DRIP 250 ML IV SCH ×4 (02:53→19:01)
[2022-03-30] MEDS: PROPOFOL DRIP (ICU) 100 ML IV SCH ×4 (03:08→23:17)
[2022-03-30] MEDS: 1/2 NS IV SOLUTION 1,000 ML IV SCH ×3 (03:35→23:54)
[2022-03-30] MEDS: niCARdipine IV (Pyxis drip kit 50 MG in NS (IVPB) 230 ML IV SCH ×2 (05:59→13:57)
[2022-03-30 06:05] LABS: ABG BASE EXCESS 8.8 MMOL/L (-2.5-2.5); ABG OXYGEN SATURATION 92 % (94-100); ABG PCO2 49 MMHG (35-45); ABG PH 7.44 (7.37-7.43); ABG PO2 62 MMHG (79-93); ABG TCO2 34.8 MMOL/L (21.0-31.0); ALLENS TEST YES-POS; INSPIRED O2 50%
[2022-03-30 06:06] LABS: PATIENT TEMP 36.3; VENTILATOR YES
[2022-03-30 06:25] LABS: BASOPHILS # (AUTO) 0.1 10^3/uL (0.0-0.1); BASOPHILS % (AUTO) 1 % (0-10); EOSINOPHILS # (AUTO) 0.1 10^3/uL (0.0-0.3); EOSINOPHILS % (AUTO) 1 % (0-10); HEMATOCRIT 35 % (40-54); HEMOGLOBIN 11.6 g/dL (13.3-17.7); LYMPHOCYTES # (AUTO) 1.8 10^3/uL (1.0-4.0); LYMPHOCYTES % (AUTO) 18 % (12-44); MEAN CORPUSCULAR HEMOGLOBIN 32 pg (25-34); MEAN CORPUSCULAR HGB CONC 33 g/dL (32-36); MEAN CORPUSCULAR VOLUME 98 fL (80-99); MEAN PLATELET VOLUME 10.6 fL (9.0-12.2); MONOCYTES # (AUTO) 1.3 10^3/uL (0.0-1.0); MONOCYTES % (AUTO) 12 % (0-12); NEUTROPHILS # (AUTO) 6.9 10^3/uL (1.8-7.8); NEUTROPHILS % (AUTO) 68 % (42-75); PLATELET COUNT 229 10^3/uL (130-400); WHITE BLOOD COUNT 10.2 10^3/uL (4.3-11.0)
[2022-03-30 06:35] LABS: CALCIUM 8.5 MG/DL (8.5-10.1); CREATININE SERUM 1.03 MG/DL (0.60-1.30); MAGNESIUM 2.2 MG/DL (1.6-2.4); PHOSPHORUS 4.1 MG/DL (2.3-4.7); POTASSIUM 4.4 MMOL/L (3.6-5.0)
[2022-03-30] MEDS: inSUlin ASPART (NovoLOG) 1 UNIT/0.01 ML (CHARGE PER UNIT) SC SCH ×4 (06:40→20:54)
[2022-03-30] MEDS: MAGNESIUM 1 GM/100 ML IVPB 100 ML IV SCH (06:42)
[2022-03-30] MEDS: POTASSIUM CL 10MEQ/50ML IVPB 50 ML IV SCH (06:42)
[2022-03-30] MEDS: KCL 20 MEQ TAB (K-DUR) PO SCH (06:42)
[2022-03-30] MEDS: fentaNYL DRIP PRE-MIX 250 ML IV SCH (06:51)
[2022-03-30 07:02] VITALS: BP 120/49
[2022-03-30] MEDS: FUROSEMIDE 40 MG/4 ML INJ (LASIX) IVP SCH ×2 (07:16→17:02)
--- NOTE | 2022-03-30 07:57 | Tele-ICU Progress Note ---
Subjective Date Seen by a Provider: Mar 30, 2022 Time Seen by a Provider: 09:41 Subjective/Events-last exam (Tele-ICU Physician , consultation) Available chart/ vitals / labs / Images reviewed H&P is from ER notes Patient's information available about PMH, allergy reviewed in EMR. ROS as per chart and RN report Video assessment done using teleICU camera, rest of exam as per RN Discussed with RN. Patient apparently had bradycardia last night now heart rate is within normal limit. Reportedly blood pressure is elevated and he was given lisinopril. He had a trach and PEG on 03/26/2022. Today's chest x-ray reviewed and showed trach in good position and the lung volumes are too small probably due to his extreme obesity with elevated diaphragms. Currently he is being sedated with the propofol 10 mcg, fentanyl 50 mcg and Precedex at 1 mcg. He is being diuresed with 80 mg of Lasix twice a day. Currently on vent settings 16/600/50/6. Impression 1. Acute and chronic respiratory failure requiring intubation and mechanical ventilation. He is extubated and reintubated x2 and currently had a trach and PEG. Will try SBT without reducing the sedation for 2 hours and see whether he tolerates but no intention to extubate today because of multiple medical problems. 2. Acute systolic and diastolic congestive heart failure with moderately reduced left ventricular ejection fraction. Will continue diuretic therapy per cardiology service 3. Hypernatremia improved. 4. Acute kidney injury improved 5. Diabetes mellitus. Patient on sliding scale coverage with insulin. 6. VTE prophylaxis with Lovenox and stress ulcer prophylaxis with PPI. 7. Patient unlikely to be weaned and successfully in the near future in view of multiple medical problems and extreme obesity. Suggest LTAC placement. Sepsis Event Evaluation Height, Weight, BMI Height: '" Weight: lbs. oz. kg; 48.85 BMI Method: Exam Exam Patient acknowledged, consented, and participated in this virtual visit which was conducted using real time audio/video Vital Signs Date Time Temp Pulse Resp B/P (MAP) Pulse Ox O2 Delivery O2 Flow Rate FiO2 03/30/22 07:02 59 16 97 50 03/30/22 07:00 68 03/30/22 06:51 61 147/50 03/30/22 06:50 61 147/50 03/30/22 06:50 61 147/50 03/30/22 06:00 61 16 96 Mechanical Ventilator 50.00 03/30/22 05:00 64 15 98 Mechanical Ventilator 50.00 03/30/22 04:00 36.2 03/30/22 04:00 50 03/30/22 04:00 94 Mechanical Ventilator 50 03/30/22 04:00 71 24 96 Mechanical Ventilator 50.00 03/30/22 03:08 71 147/50 03/30/22 03:00 72 24 97 Mechanical Ventilator 50.00 03/30/22 02:53 71 147/50 03/30/22 02:36 71 16 96 50 03/30/22 02:00 72 16 96 Mechanical Ventilator 50.00 03/30/22 01:00 72 28 96 Mechanical Ventilator 50.00 03/30/22 01:00 72 03/30/22 00:00 74 28 96 Mechanical Ventilator 50.00 03/30/22 00:00 37.0 03/30/22 00:00 50 03/29/22 23:59 94 Mechanical Ventilator 50 03/29/22 23:21 75 147/59 03/29/22 23:00 73 29 95 Mechanical Ventilator 50.00 03/29/22 22:39 75 147/59 03/29/22 22:27 75 18 96 50 03/29/22 22:00 72 27 95 Mechanical Ventilator 50.00 03/29/22 21:00 73 32 95 Mechanical Ventilator 50.00 03/29/22 20:17 37.3 03/29/22 20:00 94 Mechanical Ventilator 50 03/29/22 20:00 77 32 95 Mechanical Ventilator 50.00 03/29/22 20:00 50 03/29/22 19:36 76 165/70 03/29/22 19:20 76 19 97 50 03/29/22 19:00 80 03/29/22 19:00 73 30 96 Mechanical Ventilator 50.00 03/29/22 18:00 71 27 96 Mechanical Ventilator 50.00 03/29/22 17:00 74 29 96 Mechanical Ventilator 50.00 03/29/22 16:00 76 27 97 Mechanical Ventilator 50.00 03/29/22 16:00 94 Mechanical Ventilator 50 03/29/22 15:26 36.9 03/29/22 15:08 50 03/29/22 15:00 80 26 97 Mechanical Ventilator 50.00 03/29/22 14:49 81 19 97 50 12/16/22 14:00 81 21 96 Mechanical Ventilator 50.00 03/29/22 13:00 85 22 97 Mechanical Ventilator 50.00 03/29/22 13:00 84 03/29/22 12:00 94 Mechanical Ventilator 50 03/29/22 12:00 80 18 97 Mechanical Ventilator 50.00 03/29/22 11:59 80 19 96 50 03/29/22 11:00 86 20 96 Mechanical Ventilator 50.00 03/29/22 10:00 92 27 96 Mechanical Ventilator 50.00 03/29/22 09:00 87 28 96 Mechanical Ventilator 50.00 03/29/22 08:00 94 Mechanical Ventilator 50 03/29/22 08:00 72 97 Mechanical Ventilator 50.00 I & O 03/30/22 07:00 Intake Total 2280 ml Output Total 6475 ml Balance -4195 ml Height & Weight Height: '" Weight: lbs. oz. kg; 48.85 BMI Method: General Appearance: No Apparent Distress, WD/WN HEENT: TMs Normal Neck: Other (trach) Respiratory: No Accessory Muscle Use Cardiovascular: Regular Rate, Rhythm, No Murmur Capillary Refill: Less Than 3 Seconds Peripheral Pulses: 2+ Dorsalis Pedis (R), 2+ Left Dors-Pedis (L) Gastrointestinal: normal bowel sounds, non tender, soft, other (peg site intact, no redness/erythema) Extremity: Normal Capillary Refill Neurologic/Psychiatric: Other (sedated but opened eyes, seemed to smile for a moment even) Skin: Normal Color Lymphatic: No Adenopathy Results Lab Laboratory Tests 03/29/22 04:50 03/30/22 05:50 Assessment/Plan Assessment/Plan as above Critical Care: Ventilator Management Time spent with patient (mins): 35 AGUSTO TRAN MD Mar 30, 2022 07:57
--- NOTE | 2022-03-30 08:16 | Diagnostic Imaging Report ---
INDICATION: Dyspnea with heart failure. COMPARISON: 03/25/2022. DISCUSSION: 2 portable frontal upright views of the chest were obtained. Very low lung volumes. Normal heart size. Tracheostomy appliance is new. Right-sided PICC line is stable. Some atelectasis within the lung bases. No pleural fluid or pneumothorax. No osseous abnormality. IMPRESSION: 1. New tracheostomy appliance which appears to be in good position. Very low lung volumes. Dictated by: Dictated on workstation # [id number]
[2022-03-30] MEDS: ENALAPRILAT 2.5 MG/2 ML (VASOTEC) VIAL IV SCH ×2 (08:33→20:54)
[2022-03-30] MEDS: PANTOPRAZOLE 40 MG (PROTONIX) VIAL IV SCH (08:33)
[2022-03-30] MEDS: CLOPIDOGREL 75 MG (PLAVIX) TABLET PO SCH (08:34)
[2022-03-30] MEDS: ASPIRIN 81 MG CHEW (CHILDREN'S ASA) PO SCH (08:34)
[2022-03-30] MEDS: LACRI-LUBE OPTHALMIC OINT 3.5 GM TUBE OU SCH ×3 (09:32→21:20)
--- NOTE | 2022-03-30 10:21 | Progress Note - Hospitalist ---
Subjective HPI/CC On Admission Date Seen by Provider: Mar 30, 2022 Patient is a 61-year-old -[place] male with past medical history of coronary artery disease, hypertension, hyperlipidemia,, COPD who presented to the emergency department due to hypoxia and chest pain. He was seen at the walk-in clinic at [facility] and complained of chest pain to them and he was referred to the emergency department. He has been seen in the ER mul tiple times in the past week or so but has declined most work-up at those visits. This visit he did allow for labs and x-ray which revealed an NSTEMI. He was admitted for further management. Unfortunately overnight his respiratory status worsened and he required intubation. He is unable to provide me any history due to this and thus all history was obtained from the records. Subjective/Events-last exam Pt remains sedated on vent but slightly more alert today. Opened eyes more readily when spoken to. No family at bedside. Objective Exam Vital Signs Vital Signs Date Time Temp Pulse Resp B/P (MAP) Pulse Ox O2 Delivery O2 Flow Rate FiO2 03/30/22 09:00 73 19 96 Mechanical Ventilator 50.00 03/30/22 08:00 37.3 03/30/22 07:02 50 Capillary Refill : Less Than 3 Seconds General Appearance: No Apparent Distress, Chronically ill, Obese Neck: Other (trach) Respiratory: No Respiratory Distress, Decreased Breath Sounds Cardiovascular: Regular Rate, Rhythm, No Murmur Gastrointestinal: Normal Bowel Sounds, Non Tender, Soft Extremity: Normal Capillary Refill, Pedal Edema (trace) Neurologic/Psychiatric: Alert (opened eyes- did not otherwise communicate) Results/Procedures Lab Laboratory Tests 03/30/22 05:50 Patient resulted labs reviewed. Imaging: Reviewed Imaging Report Assessment/Plan Assessment and Plan Assess & Plan/Chief Complaint Acute hypercapnic and hypoxic respiratory failure COPD exacerbation with lower respiratory tract infection Trach/PEG 03/[address] Jessica Linder consulted for vent management- wean as able Completed course of abx Tube feeds per dietary recs, continue TPN until at goal for TF Had to hold overnight due to residuals, restarted today Referral sent to multiple LTACHs 03/26- awaiting response/acceptance Weight up over the past two days but nearly 12L negative so will recheck we ight NSTEMI CAD HTN HLD Likely Type II due to above Cardiology consulted, appreciate recs ASA and Plavix BB and joshua-i as BP allows Echo with EF of 35% Ileus Surgery following Last documented BM 03/23- hopefully will improve with TF DMII Sliding Scale Insulin DVT ppx Lovenox Critical Care Ventilator Management Diagnosis/Problems Diagnosis/Problems (1) Acute respiratory failure Status: Acute Qualifiers: Respiratory failure complication: hypoxia and hypercapnia Qualified Codes: J96.01 - Acute respiratory failure with hypoxia; J96.02 - Acute respiratory failure with hypercapnia (2) CAD (coronary artery disease) Qualifiers: Coronary Disease-Associated Artery/Lesion type: unspecified vessel or lesion type [place] vs. transplanted heart: unspecified whether [place] or transplanted heart Associated angina: unspecified whether angina present Qualified Codes: I25.10 - Atherosclerotic heart disease of [place] coronary artery without angina pectoris (3) COPD (chronic obstructive pulmonary disease) Status: Acute Qualifiers: COPD type: COPD with acute lower respiratory infection Qualified Codes: J44.0 - Chronic obstructive pulmonary disease with (acute) lower respiratory infection (4) Essential (primary) hypertension Status: Chronic (5) HLD (hyperlipidemia) Status: Chronic Qualifiers: Hyperlipidemia type: unspecified Qualified Codes: E78.5 - Hyperlipidemia, unspecified (6) COPD with acute bronchitis Status: Acute JAIRO MURILLO MD Mar 30, 2022 10:21
[2022-03-30] MEDS: ENOXAPARIN 40 MG/0.4 ML (LOVENOX) SYR SQ SCH ×2 (10:59→23:17)
[2022-03-30 11:07] VITALS: BP 159/56
[2022-03-30] MEDS: hydrALAZINE (APESOLINE) 20 MG/ML VIAL IV PRN (12:49)
--- NOTE | 2022-03-30 13:42 | Progress Note - Cardiology ---
Cardiology SOAP Progress Note Subjective: on mech vent, ventilated through trach, unresponsive Objective: I&O/Vital Signs 03/30/22 03/30/22 03/30/22 03/30/22 02:00 02:36 02:53 03:00 Pulse 72 71 71 72 Resp 16 16 24 B/P (MAP) 147/50 Pulse Ox 96 96 97 O2 Delivery Mechanical Ventilator Mechanical Ventilator O2 Flow Rate 50.00 50.00 FiO2 50 03/30/22 03/30/22 03/30/22 03/30/22 03:08 04:00 04:00 04:00 Pulse 71 71 Resp 24 B/P (MAP) 147/50 Pulse Ox 96 94 O2 Delivery Mechanical Ventilator Mechanical Ventilator O2 Flow Rate 50.00 FiO2 50 50 03/30/22 03/30/22 03/30/22 03/30/22 04:00 05:00 06:00 06:50 Temp 36.2 Pulse 64 61 61 Resp 15 16 B/P (MAP) 147/50 Pulse Ox 98 96 O2 Delivery Mechanical Ventilator Mechanical Ventilator O2 Flow Rate 50.00 50.00 03/30/22 03/30/22 03/30/22 03/30/22 06:50 06:51 07:00 07:00 Pulse 61 61 57 68 Resp 16 B/P (MAP) 147/50 147/50 Pulse Ox 96 O2 Delivery Mechanical Ventilator O2 Flow Rate 50.00 03/30/22 03/30/22 03/30/22 03/30/22 07:02 08:00 08:00 08:00 Temp 37.3 Pulse 59 Resp 16 Pulse Ox 97 98 O2 Delivery Mechanical Ventilator FiO2 50 50 50 03/30/22 03/30/22 03/30/22 03/30/22 08:00 09:00 10:00 11:00 Pulse 67 73 74 72 Resp 18 19 21 21 B/P (MAP) Pulse Ox 94 96 100 100 O2 Delivery Mechanical Ventilator Mechanical Ventilator Mechanical Ventilator Mechanical Ventilator O2 Flow Rate 50.00 50.00 50.00 50.00 03/30/22 03/30/22 03/30/22 03/30/22 11:00 11:00 11:00 11:07 Pulse 73 73 71 73 Resp 21 B/P (MAP) 164/58 164/58 164/57 Pulse Ox 100 FiO2 50 12/17/22 12/17/22 12/17/22 12/17/22 12:00 12:00 12:00 12:00 Temp 37.6 Pulse 76 Resp 17 B/P (MAP) Pulse Ox 95 98 O2 Delivery Mechanical Ventilator Mechanical Ventilator O2 Flow Rate 50.00 FiO2 50 50 03/30/22 13:25 Pulse 90 B/P (MAP) 175/60 03/30/22 00:00 Intake Total 2160 ml Output Total 4150 ml Balance -1990 ml Constitutional: other (on mech vent, ventilated through trach, unresponsive) Respiratory: other (Intubated, on mech vent, non-communicative; tracheostomy in place) Cardiovascular: regular rate-rhythm Gastrointestional: soft, round; No audible bowel sounds; other (s/p PEG) Extremities: no lower extremity edema bilateral Neurologic/Psychiatric: other (unresponsive) Skin: No rash on exposed areas, No ulcerations on exposed areas Results/Procedures: Labs Laboratory Tests 03/29/22 20:53: Glucometer 298H 03/30/22 05:50: White Blood Count 10.2, Red Blood Count 3.58L, Hemoglobin 11.6L, Hematocrit 35L, Mean Corpuscular Volume 98, Mean Corpuscular Hemoglobin 32, Mean Corpuscular Hemoglobin Concent 33, Red Cell Distribution Width 14.4, Platelet Count 229, Mean Platelet Volume 10.6, Immature Granulocyte % (Auto) 1, Neutrophils (%) (Auto) 68, Lymphocytes (%) (Auto) 18, Monocytes (%) (Auto) 12, Eosinophils (%) (Auto) 1, Basophils (%) (Auto) 1, Neutrophils # (Auto) 6.9, Lymphocytes # (Auto) 1.8, Monocytes # (Auto) 1.3H, Eosinophils # (Auto) 0.1, Basophils # (Auto) 0.1, Immature Granulocyte # (Auto) 0.1, Blood Gas Puncture Site ARTLINE, Blood Gas Patient Temperature 36.3, Arterial Blood pH 7.44H, Arterial Blood Partial Pressure CO2 49H, Arterial Blood Partial Pressure O2 62L, Arterial Blood HCO3 33H, Arterial Blood Total CO2 34.8H, Arterial Blood Oxygen Saturation 92L, Arterial Blood Base Excess 8.8H, Johnathon Test YES-POS, Blood Gas Ventilator Setting YES, Blood Gas Inspired Oxygen 50%, Sodium Level 144, Potassium Level 4.4, Chloride Level 107, Carbon Dioxide Level 29, Anion Gap 8, Blood Urea Nitrogen 36H, Creatinine 1.03, Estimat Glomerular Filtration Rate 83, BUN/Creatinine Ratio 35, Glucose Level 346H, Calcium Level 8.5, Phosphorus Level 4.1, Magnesium Level 2.2, Triglycerides Level 117 03/30/22 10:33: Glucometer 254H Microbiology 03/13/22 MRSA Screen - Final, Complete MRSA not isolated 03/12/22 Blood Culture - Final, Complete No growth Laboratory Tests 03/29/22 04:50 03/30/22 05:50 A/P: Assessment: Acute and prolonged resp failure requiring continuing mech vent - extubated on 03/17/22 and reintubated the same day - s/p trach on 03/26/22 - s/p PEG on 03/26/22 Ac systolic CHF - echo on 03/12/22: LVEF 35-40%, mod diffuse hypokinesis of LV Minimal troponin elevation - Type 2 OR d/t hypoxia and transient hypotension CAD with stents x 2 - Family at the bedside reports he had stents done at [facility] in [place], [place] in Nov 2021 at which time he had an OR COPD per ED documentation - acute on chronic exacerbation Documented h/o HTN Renal insufficiency at presentation - resolved with hydration DM per ED documentation HLD per ED documentation Probable NATALIE - advise out pt w/u if he recovers from his current resp failure Morbid obesity - BMI approx 47 Plan: * continue diuretics * Continue iv enalaprilat and beta-mj as tolerated by bp * Continue DAPT d/t CAD and family report of recent stent placement in [place] in November 2021 * Consider spironolactone and SGLT2-inhib when able to take oral meds * Sleep studies when able to * Continue DVT prophylaxis * Monitor labs closely * Prognosis poor, given continuing resp failure that is unresponsive to treatment * Awaiting LTAC placement in either [place] or [place] MD FACP [facility] Mar 30, 2022 13:42
[2022-03-30 14:34] VITALS: BP 163/57
[2022-03-30] MEDS: SODIUM ACETATE IV SCH ×11 (16:13)
[2022-03-30] MEDS: POTASSIUM CHLORIDE IV SCH ×11 (16:13)
[2022-03-30] MEDS: [UNRECOGNIZED DRUG - OTHER] IV SCH ×11 (16:13)
[2022-03-30 19:54] VITALS: BP 144/57
[2022-03-30 21:29] VITALS: BP 163/56
[2022-03-31] VITALS (8 sets, daily range): BP systolic 122–158; BP diastolic 58–62
[2022-03-31] MEDS: DexMEDEtomidine 250 ML DRIP 250 ML IV SCH ×5 (00:21→22:36)
[2022-03-31] MEDS: niCARdipine IV (Pyxis drip kit 50 MG in NS (IVPB) 230 ML IV SCH ×3 (00:29→19:30)
[2022-03-31] MEDS: PROPOFOL DRIP (ICU) 100 ML IV SCH ×4 (03:18→18:35)
[2022-03-31] MEDS: RT-ALBUTEROL/IPRATROPIUM 3 ML (DUONEB) VIAL INH SCH ×5 (03:23→22:13)
[2022-03-31 05:09] LABS: BASOPHILS # (AUTO) 0.1 10^3/uL (0.0-0.1); BASOPHILS % (AUTO) 0 % (0-10); EOSINOPHILS # (AUTO) 0.1 10^3/uL (0.0-0.3); EOSINOPHILS % (AUTO) 1 % (0-10); HEMATOCRIT 35 % (40-54); HEMOGLOBIN 11.7 g/dL (13.3-17.7); LYMPHOCYTES # (AUTO) 2.1 10^3/uL (1.0-4.0); LYMPHOCYTES % (AUTO) 18 % (12-44); MEAN CORPUSCULAR HEMOGLOBIN 32 pg (25-34); MEAN CORPUSCULAR HGB CONC 33 g/dL (32-36); MEAN CORPUSCULAR VOLUME 97 fL (80-99); MEAN PLATELET VOLUME 10.6 fL (9.0-12.2); MONOCYTES # (AUTO) 1.5 10^3/uL (0.0-1.0); MONOCYTES % (AUTO) 13 % (0-12); NEUTROPHILS % (AUTO) 67 % (42-75); PLATELET COUNT 235 10^3/uL (130-400); WHITE BLOOD COUNT 11.9 10^3/uL (4.3-11.0)
[2022-03-31 05:21] LABS: ALBUMIN 2.8 GM/DL (3.2-4.5); POTASSIUM 4.2 MMOL/L (3.6-5.0)
[2022-03-31 05:22] LABS: CALCIUM 8.5 MG/DL (8.5-10.1)
[2022-03-31 05:23] LABS: TOTAL PROTEIN 5.9 GM/DL (6.4-8.2)
[2022-03-31 05:25] LABS: BILIRUBIN,TOTAL 1.6 MG/DL (0.1-1.0)
[2022-03-31 05:26] LABS: ABG BASE EXCESS 7.3 MMOL/L (-2.5-2.5); ABG OXYGEN SATURATION 87 % (94-100); ABG PCO2 47 MMHG (35-45); ABG PH 7.44 (7.37-7.43); ABG PO2 57 MMHG (79-93)
[2022-03-31 05:27] LABS: CREATININE SERUM 0.96 MG/DL (0.60-1.30); PHOSPHORUS 3.9 MG/DL (2.3-4.7)
[2022-03-31 05:29] LABS: ALLENS TEST YES-POS; INSPIRED O2 50%; PATIENT TEMP 36.7; VENTILATOR YES
[2022-03-31] MEDS: METOCLOPRAMIDE INJ 10 MG/2 ML (REGLAN) IVP SCH ×4 (06:12→23:55)
[2022-03-31] MEDS: FUROSEMIDE 40 MG/4 ML INJ (LASIX) IVP SCH ×2 (06:12→17:10)
[2022-03-31] MEDS: inSUlin ASPART (NovoLOG) 1 UNIT/0.01 ML (CHARGE PER UNIT) SC SCH ×4 (06:12→21:01)
[2022-03-31] MEDS: FLEET ENEMA ADULT 1 EA BTL PR SCH ×3 (06:13→22:00)
[2022-03-31] MEDS: MAGNESIUM 1 GM/100 ML IVPB 100 ML IV SCH (07:25)
[2022-03-31] MEDS: POTASSIUM CL 10MEQ/50ML IVPB 50 ML IV SCH (07:25)
[2022-03-31] MEDS: meTOprolol 5 MG/5 ML (LOPRESSOR) VIAL IV SCH ×4 (07:25→23:56)
[2022-03-31] MEDS: KCL 20 MEQ TAB (K-DUR) PO SCH (07:26)
[2022-03-31] MEDS: fentaNYL DRIP PRE-MIX 250 ML IV SCH (07:41)
[2022-03-31] MEDS: PANTOPRAZOLE 40 MG (PROTONIX) VIAL IV SCH (08:45)
[2022-03-31] MEDS: LACRI-LUBE OPTHALMIC OINT 3.5 GM TUBE OU SCH ×3 (08:46→21:03)
[2022-03-31] MEDS: ENALAPRILAT 2.5 MG/2 ML (VASOTEC) VIAL IV SCH ×2 (08:46→21:18)
[2022-03-31] MEDS: ASPIRIN 81 MG CHEW (CHILDREN'S ASA) PO SCH (08:46)
[2022-03-31] MEDS: CLOPIDOGREL 75 MG (PLAVIX) TABLET PO SCH (08:46)
--- NOTE | 2022-03-31 10:03 | Tele-ICU Progress Note ---
Subjective Date Seen by a Provider: Mar 31, 2022 Time Seen by a Provider: 10:01 Subjective/Events-last exam (Tele-ICU Physician , consultation) Available chart/ vitals / labs / Images reviewed H&P is from ER notes Patient's information available about PMH, allergy reviewed in EMR. ROS as per chart and RN report Video assessment done using teleICU camera, rest of exam as per RN Discussed with RN. Patient apparently had bradycardia last night now heart rate is within normal limit. Reportedly blood pressure is elevated and he was given lisinopril. He had a trach and PEG on 03/26/2022. Today's chest x-ray reviewed and showed trach in good position and the lung volumes are too small probably due to his extreme obesity with elevated diaphragms. Currently he is being sedated with the propofol 15 mcg, TPN and , fentanyl 50 mcg. He is being diuresed with 80 mg of Lasix twice a day. Currently on vent settings 16/600/50/6. PEG tube feeds are at 20 ml/hr Impression 1. Acute and chronic respiratory failure requiring intubation and mechanical ventilation. He is extubated and reintubated x2 and currently had a trach and PEG. Will try SBT without reducing the sedation for 2 hours and see whether he tolerates but no intention to extubate today because of multiple medical problems. Reviewed with RN 2. Acute systolic and diastolic congestive heart failure with moderately reduced left ventricular ejection fraction. Will continue diuretic therapy per cardiology service 3. Hypernatremia improved. 4. Acute kidney injury improved 5. Diabetes mellitus. Patient on sliding scale coverage with insulin. 6. VTE prophylaxis with Lovenox and stress ulcer prophylaxis with PPI. 7. Patient unlikely to be weaned and successfully in the near future in view of multiple medical problems and extreme obesity. Suggest LTAC placement. Apparently has long waiting list. Sepsis Event Evaluation Height, Weight, BMI Height: '" Weight: lbs. oz. kg; 46.56 BMI Method: Exam Exam Patient acknowledged, consented, and participated in this virtual visit which was conducted using real time audio/video Vital Signs Date Time Temp Pulse Resp B/P (MAP) Pulse Ox O2 Delivery O2 Flow Rate FiO2 03/31/22 09:00 89 23 98 Mechanical Ventilator 50.00 03/31/22 08:00 80 31 97 Mechanical Ventilator 50.00 03/31/22 08:00 36.8 03/31/22 07:41 78 147/61 03/31/22 07:41 73 150/61 03/31/22 07:25 78 21 95 50 03/31/22 07:00 69 03/31/22 07:00 70 26 97 Mechanical Ventilator 50.00 03/31/22 06:00 70 26 99 Mechanical Ventilator 50.00 03/31/22 05:42 77 122/61 03/31/22 05:00 77 18 95 Mechanical Ventilator 50.00 03/31/22 04:00 95 Mechanical Ventilator 50 03/31/22 04:00 50 03/31/22 04:00 80 25 95 Mechanical Ventilator 50.00 03/31/22 03:21 78 21 95 50 03/31/22 03:18 85 163/56 03/31/22 03:00 75 25 96 Mechanical Ventilator 50.00 03/31/22 02:00 79 19 96 Mechanical Ventilator 50.00 03/31/22 01:00 77 18 95 Mechanical Ventilator 50.00 03/31/22 01:00 81 03/31/22 00:21 85 163/56 03/31/22 00:00 50 03/31/22 00:00 80 23 97 Mechanical Ventilator 50.00 03/30/22 23:59 95 Mechanical Ventilator 50 03/30/22 23:30 37.6 Mechanical Ventilator 50.00 03/30/22 23:17 85 163/56 03/30/22 23:00 92 23 97 Mechanical Ventilator 50.00 03/30/22 22:00 85 26 96 Mechanical Ventilator 50.00 03/30/22 21:29 83 18 95 50 03/30/22 21:00 86 22 96 Mechanical Ventilator 50.00 03/30/22 20:00 77 16 100 Mechanical Ventilator 50.00 03/30/22 20:00 50 03/30/22 20:00 95 Mechanical Ventilator 50 03/30/22 19:54 78 18 97 50 03/30/22 19:35 37.2 03/30/22 19:01 75 137/60 03/30/22 19:00 80 28 99 Mechanical Ventilator 50.00 03/30/22 19:00 80 03/30/22 18:00 80 28 98 Mechanical Ventilator 50.00 03/30/22 17:30 85 168/69 03/30/22 17:18 82 168/60 03/30/22 17:00 91 23 97 Mechanical Ventilator 50.00 03/30/22 16:00 95 Mechanical Ventilator 50 03/30/22 16:00 50 03/30/22 16:00 37.3 03/30/22 16:00 92 21 96 Mechanical Ventilator 50.00 03/30/22 15:00 92 25 93 Mechanical Ventilator 50.00 03/30/22 14:34 89 18 97 50 03/30/22 14:00 87 22 94 Mechanical Ventilator 50.00 03/30/22 13:57 80 148/62 03/30/22 13:25 90 175/60 03/30/22 13:00 86 03/30/22 13:00 90 12 97 Mechanical Ventilator 50.00 03/30/22 12:00 76 17 98 Mechanical Ventilator 50.00 03/30/22 12:00 50 03/30/22 12:00 37.6 03/30/22 12:00 95 Mechanical Ventilator 50 03/30/22 11:07 73 21 100 50 03/30/22 11:00 71 164/57 03/30/22 11:00 73 164/58 03/30/22 11:00 73 164/58 03/30/22 11:00 72 21 100 Mechanical Ventilator 50.00 I & O 03/31/22 07:00 Intake Total 2905 ml Output Total 6200 ml Balance -3295 ml Height & Weight Height: '" Weight: lbs. oz. kg; 46.56 BMI Method: General Appearance: No Apparent Distress, Chronically ill, Obese HEENT: TMs Normal Neck: Other (trach) Respiratory: No Respiratory Distress, Decreased Breath Sounds Cardiovascular: Regular Rate, Rhythm, No Murmur Capillary Refill: Less Than 3 Seconds Peripheral Pulses: 2+ Dorsalis Pedis (R), 2+ Left Dors-Pedis (L) Gastrointestinal: normal bowel sounds, non tender, soft, other (peg site intact, no redness/erythema) Extremity: Normal Capillary Refill, Pedal Edema (trace) Neurologic/Psychiatric: Alert (opened eyes- did not otherwise communicate) Skin: Normal Color Lymphatic: No Adenopathy Results Lab Laboratory Tests 03/30/22 05:50 03/31/22 05:00 Assessment/Plan Assessment/Plan as above Critical Care: Ventilator Management Time spent with patient (mins): 35 AGUSTO TRAN MD Mar 31, 2022 10:03
--- NOTE | 2022-03-31 10:40 | Progress Note - Cardiology ---
Cardiology SOAP Progress Note Subjective: on mech vent, ventilated through trach, unresponsive Objective: I&O/Vital Signs 03/30/22 03/30/22 03/30/22 03/30/22 23:00 23:17 23:30 23:59 Temp 37.6 Pulse 92 85 Resp 23 B/P (MAP) 163/56 Pulse Ox 97 95 O2 Delivery Mechanical Ventilator Mechanical Ventilator Mechanical Ventilator O2 Flow Rate 50.00 50.00 FiO2 50 03/31/22 03/31/22 03/31/22 03/31/22 00:00 00:00 00:21 01:00 Pulse 80 85 81 Resp 23 B/P (MAP) 163/56 Pulse Ox 97 O2 Delivery Mechanical Ventilator O2 Flow Rate 50.00 FiO2 50 03/31/22 03/31/22 03/31/22 03/31/22 01:00 02:00 03:00 03:18 Pulse 77 79 75 85 Resp 18 19 25 B/P (MAP) 163/56 Pulse Ox 95 96 96 O2 Delivery Mechanical Ventilator Mechanical Ventilator Mechanical Ventilator O2 Flow Rate 50.00 50.00 50.00 03/31/22 03/31/22 03/31/22 03/31/22 03:21 04:00 04:00 04:00 Pulse 78 80 Resp 21 25 B/P (MAP) Pulse Ox 95 95 95 O2 Delivery Mechanical Ventilator Mechanical Ventilator O2 Flow Rate 50.00 FiO2 50 50 50 03/31/22 03/31/22 03/31/22 03/31/22 05:00 05:42 06:00 07:00 Pulse 77 77 70 70 Resp 18 26 26 B/P (MAP) 122/61 Pulse Ox 95 99 97 O2 Delivery Mechanical Ventilator Mechanical Ventilator Mechanical Ventilator O2 Flow Rate 50.00 50.00 50.00 03/31/22 03/31/22 03/31/22 03/31/22 07:00 07:25 07:41 07:41 Pulse 69 78 73 78 Resp 21 B/P (MAP) 150/61 147/61 Pulse Ox 95 FiO2 50 03/31/22 03/31/22 03/31/22 03/31/22 08:00 08:00 09:00 10:00 Temp 36.8 Pulse 80 89 85 Resp 31 23 22 B/P (MAP) Pulse Ox 97 98 97 O2 Delivery Mechanical Ventilator Mechanical Ventilator Mechanical Ventilator O2 Flow Rate 50.00 50.00 50.00 03/31/22 10:14 Pulse 82 B/P (MAP) 124/80 03/31/22 00:00 Intake Total 2805 ml Output Total 3225 ml Balance -420 ml Constitutional: other (on mech vent, ventilated through trach, unresponsive) Respiratory: other (Intubated, on mech vent, non-communicative; tracheostomy in place) Cardiovascular: regular rate-rhythm Gastrointestional: soft, round; No audible bowel sounds; other (s/p PEG) Extremities: no lower extremity edema bilateral Neurologic/Psychiatric: other (unresponsive) Skin: No rash on exposed areas, No ulcerations on exposed areas Results/Procedures: Labs Laboratory Tests 03/30/22 15:57: Glucometer 245H 03/30/22 20:30: Glucometer 243H 03/31/22 05:00: White Blood Count 11.9H, Red Blood Count 3.62L, Hemoglobin 11.7L, Hematocrit 35L , Mean Corpuscular Volume 97, Mean Corpuscular Hemoglobin 32, Mean Corpuscular Hemoglobin Concent 33, Red Cell Distribution Width 14.5, Platelet Count 235, Mean Platelet Volume 10.6, Immature Granulocyte % (Auto) 1, Neutrophils (%) (Auto) 67, Lymphocytes (%) (Auto) 18, Monocytes (%) (Auto) 13H, Eosinophils (%) (Auto) 1, Basophils (%) (Auto) 0, Neutrophils # (Auto) 8.0H, Lymphocytes # (Auto) 2.1, Monocytes # (Auto) 1.5H, Eosinophils # (Auto) 0.1, Basophils # (Auto) 0.1, Immature Granulocyte # (Auto) 0.1, Blood Gas Puncture Site ARTLINE, Blood Gas Patient Temperature 36.7, Arterial Blood pH 7.44H, Arterial Blood Partial Pressure CO2 47H, Arterial Blood Partial Pressure O2 57L, Arterial Blood HCO3 32H, Arterial Blood Total CO2 33.0H, Arterial Blood Oxygen Saturation 87L, Arterial Blood Base Excess 7.3H, Johnathon Test YES-POS, Blood Gas Ventilator Setting YES, Blood Gas Inspired Oxygen 50%, Sodium Level 144, Potassium Level 4.2, Chloride Level 105, Carbon Dioxide Level 28, Anion Gap 11, Blood Urea Nitrogen 38H, Creatinine 0.96, Estimat Glomerular Filtration Rate 90, BUN /Creatinine Ratio 40, Glucose Level 321H, Calcium Level 8.5, Corrected Calcium 9.5, Phosphorus Level 3.9, Magnesium Level 2.0, Total Bilirubin 1.6H, Aspartate Amino Transf (AST/SGOT) 51H, Alanine Aminotransferase (ALT/SGPT) 143H, Alkaline Phosphatase 201H, Total Protein 5.9L, Albumin 2.8L 03/31/22 10:37: Microbiology 03/13/22 MRSA Screen - Final, Complete MRSA not isolated 03/12/22 Blood Culture - Final, Complete No growth Laboratory Tests 03/30/22 05:50 03/31/22 05:00 A/P: Assessment: Acute and prolonged resp failure requiring continuing mech vent - extubated on 03/17/22 and reintubated the same day - s/p trach on 03/26/22 - s/p PEG on 03/26/22 Ac systolic CHF - echo on 03/12/22: LVEF 35-40%, mod diffuse hypokinesis of LV Minimal troponin elevation - Type 2 AL d/t hypoxia and transient hypotension CAD with stents x 2 - Family at the bedside reports he had stents done at [facility] in [place], [place] in Nov 2021 at which time he had an AL COPD per ED documentation - acute on chronic exacerbation Documented h/o HTN Renal insufficiency at presentation - resolved with hydration DM per ED documentation HLD per ED documentation Probable NATALIE - advise out pt w/u if he recovers from his current resp failure Morbid obesity - BMI approx 47 Plan: * continue diuretics * Continue iv enalaprilat and beta-mj as tolerated by bp * Continue DAPT d/t CAD and family report of recent stent placement in [place] in November 2021 * Consider spironolactone and SGLT2-inhib when able to take oral meds * Continue DVT prophylaxis * Monitor labs closely * Prognosis poor, given continuing resp failure that is unresponsive to treatment * Awaiting LTAC placement in either [place] or [place] [facility] Mar 31, 2022 10:40
[2022-03-31] MEDS: ENOXAPARIN 40 MG/0.4 ML (LOVENOX) SYR SQ SCH ×2 (10:44→23:55)
[2022-03-31] MEDS: 1/2 NS IV SOLUTION 1,000 ML IV SCH ×2 (10:45→21:18)
[2022-03-31] MEDS: fentaNYL PATCH 50 MCG (DURAGESIC) TD SCH (11:11)
--- NOTE | 2022-03-31 11:15 | Progress Note - Hospitalist ---
Subjective HPI/CC On Admission Date Seen by Provider: Mar 31, 2022 Patient is a 61-year-old -[place] male with past medical history of coronary artery disease, hypertension, hyperlipidemia,, COPD who presented to the emergency department due to hypoxia and chest pain. He was seen at the walk-in clinic at [facility] and complained of chest pain to them and he was referred to the emergency department. He has been seen in the ER mul tiple times in the past week or so but has declined most work-up at those visits. This visit he did allow for labs and x-ray which revealed an NSTEMI. He was admitted for further management. Unfortunately overnight his respiratory status worsened and he required intubation. He is unable to provide me any history due to this and thus all history was obtained from the records. Objective Exam Vital Signs Vital Signs Date Time Temp Pulse Resp B/P (MAP) Pulse Ox O2 Delivery O2 Flow Rate FiO2 03/31/22 11:00 75 18 95 Mechanical Ventilator 50.00 03/31/22 08:00 50 03/31/22 08:00 36.8 Capillary Refill : Less Than 3 Seconds General Appearance: No Apparent Distress, Chronically ill, Obese Neck: Other (trach) Respiratory: Lungs Clear, Other (on vent) Cardiovascular: Regular Rate, Rhythm, No Murmur Gastrointestinal: Normal Bowel Sounds, Soft Neurologic/Psychiatric: Alert, Oriented x3 Results/Procedures Lab Laboratory Tests 03/31/22 05:00 Patient resulted labs reviewed. Imaging: Reviewed Imaging Report Assessment/Plan Assessment and Plan Assess & Plan/Chief Complaint Acute hypercapnic and hypoxic respiratory failure COPD exacerbation with lower respiratory tract infection Trach/PEG 03/[address] Jessica Linder consulted for vent management- wean as able Completed course of abx Tube feeds per dietary recs, continue TPN until at goal for TF Tolerating currently (not currently documented with I/Os but confirmed with RN) Referral sent to multiple LTACHs 03/26- awaiting response/acceptance PT to start tomorrow NSTEMI CAD HTN HLD Likely Type II due to above Cardiology consulted, appreciate recs ASA and Plavix BB and joshua-i as BP allows BP on the soft side this AM Echo with EF of 35% Ileus Surgery following Last documented BM 03/23- but spoke with the RN and small one DMII Sliding Scale Insulin DVT ppx Lovenox Critical Care Ventilator Management Diagnosis/Problems Diagnosis/Problems (1) Acute respiratory failure Status: Acute Qualifiers: Respiratory failure complication: hypoxia and hypercapnia Qualified Codes: J96.01 - Acute respiratory failure with hypoxia; J96.02 - Acute respiratory fail ure with hypercapnia (2) CAD (coronary artery disease) Qualifiers: Coronary Disease-Associated Artery/Lesion type: unspecified vessel or lesion type [place] vs. transplanted heart: unspecified whether [place] or transplanted heart Associated angina: unspecified whether angina present Qualified Codes: I25.10 - Atherosclerotic heart disease of [place] coronary artery without angina pectoris (3) COPD (chronic obstructive pulmonary disease) Status: Acute Qualifiers: COPD type: COPD with acute lower respiratory infection Qualified Codes: J44.0 - Chronic obstructive pulmonary disease with (acute) lower respiratory i nfection (4) Essential (primary) hypertension Status: Chronic (5) HLD (hyperlipidemia) Status: Chronic Qualifiers: Hyperlipidemia type: unspecified Qualified Codes: E78.5 - Hyperlipidemia, unspecified (6) COPD with acute bronchitis Status: Acute JAIRO MURILLO MD Mar 31, 2022 11:15 am
[2022-03-31] MEDS: FENTANYL PATCH REMOVAL TP SCH (11:30)
[2022-03-31] MEDS: POTASSIUM CHLORIDE IV SCH ×11 (17:21)
[2022-03-31] MEDS: SODIUM ACETATE IV SCH ×11 (17:21)
[2022-03-31] MEDS: [UNRECOGNIZED DRUG - OTHER] IV SCH ×11 (17:21)
[2022-03-31] MEDS: NS IV 1000 ML 1,000 ML IV SCH (22:45)
[2022-04-01] MEDS: PROPOFOL DRIP (ICU) 100 ML IV SCH ×7 (00:45→21:56)
[2022-04-01] MEDS: RT-ALBUTEROL/IPRATROPIUM 3 ML (DUONEB) VIAL INH SCH ×6 (02:20→22:29)
[2022-04-01 02:21] VITALS: BP 122/59
[2022-04-01] MEDS: DexMEDEtomidine 250 ML DRIP 250 ML IV SCH ×5 (04:10→22:15)
[2022-04-01 04:59] LABS: ABG BASE EXCESS 7.7 MMOL/L (-2.5-2.5); ABG OXYGEN SATURATION 91 % (94-100); ABG PCO2 47 MMHG (35-45); ABG PH 7.45 (7.37-7.43); ABG PO2 58 MMHG (79-93); ABG TCO2 33.6 MMOL/L (21.0-31.0); ALLENS TEST YES-POS; INSPIRED O2 50%; VENTILATOR YES
[2022-04-01 05:00] LABS: PATIENT TEMP 36.2
[2022-04-01 05:17] LABS: BASOPHILS # (AUTO) 0.1 10^3/uL (0.0-0.1); BASOPHILS % (AUTO) 1 % (0-10); EOSINOPHILS # (AUTO) 0.2 10^3/uL (0.0-0.3); EOSINOPHILS % (AUTO) 3 % (0-10); HEMATOCRIT 34 % (40-54); HEMOGLOBIN 10.9 g/dL (13.3-17.7); LYMPHOCYTES # (AUTO) 1.7 10^3/uL (1.0-4.0); LYMPHOCYTES % (AUTO) 21 % (12-44); MEAN CORPUSCULAR HEMOGLOBIN 32 pg (25-34); MEAN CORPUSCULAR HGB CONC 32 g/dL (32-36); MEAN CORPUSCULAR VOLUME 98 fL (80-99); MEAN PLATELET VOLUME 10.9 fL (9.0-12.2); MONOCYTES # (AUTO) 0.9 10^3/uL (0.0-1.0); MONOCYTES % (AUTO) 11 % (0-12); NEUTROPHILS # (AUTO) 5.4 10^3/uL (1.8-7.8); NEUTROPHILS % (AUTO) 64 % (42-75); PLATELET COUNT 219 10^3/uL (130-400); WHITE BLOOD COUNT 8.5 10^3/uL (4.3-11.0)
[2022-04-01] MEDS: niCARdipine IV (Pyxis drip kit 50 MG in NS (IVPB) 230 ML IV SCH ×3 (05:30→23:15)
[2022-04-01 05:36] LABS: CALCIUM 8.4 MG/DL (8.5-10.1); CREATININE SERUM 0.94 MG/DL (0.60-1.30); MAGNESIUM 2.1 MG/DL (1.6-2.4); PHOSPHORUS 3.8 MG/DL (2.3-4.7); POTASSIUM 4.1 MMOL/L (3.6-5.0)
[2022-04-01] MEDS: meTOprolol 5 MG/5 ML (LOPRESSOR) VIAL IV SCH (06:00)
[2022-04-01] MEDS: POTASSIUM CL 10MEQ/50ML IVPB 50 ML IV SCH (06:00)
[2022-04-01] MEDS: FLEET ENEMA ADULT 1 EA BTL PR SCH ×3 (06:00→22:00)
[2022-04-01] MEDS: KCL 20 MEQ TAB (K-DUR) PO SCH (06:00)
[2022-04-01] MEDS: MAGNESIUM 1 GM/100 ML IVPB 100 ML IV SCH (06:00)
[2022-04-01] MEDS: FUROSEMIDE 40 MG/4 ML INJ (LASIX) IVP SCH (06:40)
[2022-04-01] MEDS: METOCLOPRAMIDE INJ 10 MG/2 ML (REGLAN) IVP SCH ×3 (06:40→16:19)
[2022-04-01] MEDS: inSUlin ASPART (NovoLOG) 1 UNIT/0.01 ML (CHARGE PER UNIT) SC SCH ×3 (06:40→17:52)
--- NOTE | 2022-04-01 06:52 | Occ Therapy Progress Note ---
Therapy Progress Note Pt currently intubated. OT to monitor pt's status then will initiate treatment when pt is medically stable and able to actively participate in skilled therapy. SHANA FERNANDEZ Apr 01, 2022 06:52
[2022-04-01] MEDS: fentaNYL DRIP PRE-MIX 250 ML IV SCH ×2 (07:32→20:34)
--- NOTE | 2022-04-01 07:32 | Physical Therapy Progress Note ---
Therapy Progress Note Patient is sedated and intubated per report. PT will monitor patient status and initiate treatment when patient is deemed medically stable and able to actively participate with skilled therapy. MARS BERNAL PT Apr 01, 2022 07:32
[2022-04-01 07:35] VITALS: BP 133/55
[2022-04-01] MEDS: 1/2 NS IV SOLUTION 1,000 ML IV SCH (08:07)
[2022-04-01] MEDS: PANTOPRAZOLE 40 MG (PROTONIX) VIAL IV SCH (08:39)
[2022-04-01] MEDS: CLOPIDOGREL 75 MG (PLAVIX) TABLET PO SCH (08:39)
[2022-04-01] MEDS: ASPIRIN 81 MG CHEW (CHILDREN'S ASA) PO SCH (08:39)
[2022-04-01] MEDS: ENALAPRILAT 2.5 MG/2 ML (VASOTEC) VIAL IV SCH (08:39)
[2022-04-01] MEDS: hydrALAZINE (APESOLINE) 20 MG/ML VIAL IV PRN ×2 (08:51→12:49)
--- NOTE | 2022-04-01 09:09 | Progress Note - Cardiology ---
Cardiology SOAP Progress Note Subjective: Remains intubated and sedated Objective: I&O/Vital Signs 04/01/22 04/01/22 04/01/22 04/01/22 01:00 01:00 02:00 02:21 Pulse 50 50 58 52 Resp 16 16 16 B/P (MAP) Pulse Ox 98 98 98 O2 Delivery Mechanical Ventilator Mechanical Ventilator O2 Flow Rate 50.00 50.00 FiO2 50 04/01/22 04/01/22 04/01/22 04/01/22 03:00 04:00 04:00 04:00 Pulse 54 50 Resp 16 16 B/P (MAP) Pulse Ox 99 97 99 O2 Delivery Mechanical Ventilator Mechanical Ventilator Mechanical Ventilator O2 Flow Rate 50.00 50.00 FiO2 50 50 04/01/22 04/01/22 04/01/22 04/01/22 04:30 05:00 06:00 07:00 Temp 36.2 Pulse 47 52 51 Resp 16 16 B/P (MAP) Pulse Ox 98 97 98 O2 Delivery Mechanical Ventilator Mechanical Ventilator Mechanical Ventilator O2 Flow Rate 50.00 50.00 50.00 04/01/22 04/01/22 04/01/22 04/01/22 07:11 07:32 07:32 07:34 Temp 36.2 Pulse 49 50 56 B/P (MAP) 140/58 143/61 04/01/22 04/01/22 04/01/22 04/01/22 07:35 08:00 08:34 09:00 Pulse 51 58 59 68 Resp 16 19 B/P (MAP) 149/67 Pulse Ox 98 94 95 O2 Delivery Mechanical Ventilator Mechanical Ventilator O2 Flow Rate 50.00 50.00 FiO2 50 04/01/22 04/01/22 04/01/22 04/01/22 09:46 10:00 10:10 11:00 Pulse 67 70 67 63 Resp 20 21 18 B/P (MAP) 162/56 Pulse Ox 97 99 98 O2 Delivery Mechanical Ventilator Mechanical Ventilator O2 Flow Rate 50.00 50.00 FiO2 50 04/01/22 04/01/22 12:02 12:07 Pulse 74 70 B/P (MAP) 193/69 190/68 04/01/22 00:00 Intake Total 2267.5867 ml Output Total 2650 ml Balance -382.4133 ml Constitutional: other (on mech vent, ventilated through trach, unresponsive) Respiratory: other (Intubated, on mech vent, non-communicative; tracheostomy in place) Cardiovascular: regular rate-rhythm Gastrointestional: soft, round; No audible bowel sounds; other (s/p PEG) Extremities: no lower extremity edema bilateral Neurologic/Psychiatric: other (unresponsive) Skin: No rash on exposed areas, No ulcerations on exposed areas Results/Procedures: Labs Laboratory Tests 03/31/22 15:24: Glucometer 304H 03/31/22 20:57: Glucometer 295H 04/01/22 04:45: Blood Gas Puncture Site LEFT ARTLINE, Blood Gas Patient Temperature 36.2, Arterial Blood pH 7.45H, Arterial Blood Partial Pressure CO2 47H, Arterial Blood Partial Pressure O2 58L, Arterial Blood HCO3 32H, Arterial Blood Total CO2 33.6H , Arterial Blood Oxygen Saturation 91L, Arterial Blood Base Excess 7.7H, Johnathon Test YES-POS, Blood Gas Ventilator Setting YES, Blood Gas Inspired Oxygen 50% 04/01/22 05:05: White Blood Count 8.5, Red Blood Count 3.42L, Hemoglobin 10.9L, Hematocrit 34L, Mean Corpuscular Volume 98, Mean Corpuscular Hemoglobin 32, Mean Corpuscular Hemoglobin Concent 32, Red Cell Distribution Width 14.3, Platelet Count 219, Mean Platelet Volume 10.9, Immature Granulocyte % (Auto) 1, Neutrophils (%) (Auto) 64, Lymphocytes (%) (Auto) 21, Monocytes (%) (Auto) 11, Eosinophils (%) (Auto) 3, Basophils (%) (Auto) 1, Neutrophils # (Auto) 5.4, Lymphocytes # (Auto) 1.7, Monocytes # (Auto) 0.9, Eosinophils # (Auto) 0.2, Basophils # (Auto) 0.1, Immature Granulocyte # (Auto) 0.1, Sodium Level 144, Potassium Level 4.1, Chloride Level 105, Carbon Dioxide Level 32, Anion Gap 7, Blood Urea Nitrogen 43H, Creatinine 0.94, Estimat Glomerular Filtration Rate 92, BUN/Creatinine Ratio 46, Glucose Level 313H, Calcium Level 8.4L, Phosphorus Level 3.8, Magnesium Level 2.1 04/01/22 10:18: Glucometer 240H 04/01/22 10:55: Glucometer 251H Microbiology 03/13/22 MRSA Screen - Final, Complete MRSA not isolated 03/12/22 Blood Culture - Final, Complete No growth A/P: Assessment: Acute and prolonged resp failure requiring continuing mech vent - extubated on 03/17/22 and reintubated the same day - s/p trach on 03/26/22 - s/p PEG on 03/26/22 Ac systolic CHF - echo on 03/12/22: LVEF 35-40%, mod diffuse hypokinesis of LV Minimal troponin elevation - Type 2 NM d/t hypoxia and transient hypotension CAD with stents x 2 - Family at the bedside reports he had stents done at [facility] in [place], [place] in Nov 2021 at which time he had an NM COPD per ED documentation - acute on chronic exacerbation Documented h/o HTN Renal insufficiency at presentation - resolved with hydration DM per ED documentation HLD per ED documentation Probable NATALIE - advise out pt w/u if he recovers from his current resp failure Morbid obesity - BMI approx 47 Plan: * continue diuretics * Continue iv enalaprilat and beta-mj as tolerated by bp * Continue DAPT d/t CAD and family report of recent stent placement in [place] in November 2021 * Consider spironolactone and SGLT2-inhib when able to take oral meds * Continue DVT prophylaxis * Monitor labs closely * Prognosis poor, given continuing resp failure that is unresponsive to treatment * Awaiting LTAC placement in either [place] or [place] FREDDY ERICKSON Apr 01, 2022 09:09
--- NOTE | 2022-04-01 09:12 | Progress Note - Cardiology ---
Cardiology SOAP Progress Note Subjective: mech vent through trach unresponsive Objective: I&O/Vital Signs 03/31/22 03/31/22 03/31/22 03/31/22 22:11 22:14 23:15 23:58 Temp 36.6 Pulse 54 62 62 Resp 16 17 16 B/P (MAP) Pulse Ox 97 98 97 O2 Delivery Mechanical Ventilator Mechanical Ventilator O2 Flow Rate 50.00 50.00 FiO2 50 03/31/22 04/01/22 04/01/22 04/01/22 23:59 00:00 00:00 01:00 Pulse 61 50 Resp 16 16 B/P (MAP) Pulse Ox 98 99 98 O2 Delivery Mechanical Ventilator Mechanical Ventilator Mechanical Ventilator O2 Flow Rate 50.00 50.00 FiO2 50 50 04/01/22 04/01/22 04/01/22 04/01/22 01:00 02:00 02:21 03:00 Pulse 50 58 52 54 Resp 16 16 16 B/P (MAP) Pulse Ox 98 98 99 O2 Delivery Mechanical Ventilator Mechanical Ventilator O2 Flow Rate 50.00 50.00 FiO2 50 04/01/22 04/01/22 04/01/22 04/01/22 04:00 04:00 04:00 04:30 Temp 36.2 Pulse 50 Resp 16 B/P (MAP) Pulse Ox 97 99 O2 Delivery Mechanical Ventilator Mechanical Ventilator O2 Flow Rate 50.00 FiO2 50 50 04/01/22 04/01/22 04/01/22 04/01/22 05:00 06:00 07:00 07:11 Pulse 47 52 51 49 Resp 16 16 B/P (MAP) Pulse Ox 98 97 98 O2 Delivery Mechanical Ventilator Mechanical Ventilator Mechanical Ventilator O2 Flow Rate 50.00 50.00 50.00 04/01/22 04/01/22 04/01/22 04/01/22 07:32 07:32 07:34 07:35 Temp 36.2 Pulse 50 56 51 Resp 16 B/P (MAP) 140/58 143/61 Pulse Ox 98 FiO2 50 04/01/22 04/01/22 08:00 08:34 Pulse 58 59 B/P (MAP) 149/67 Pulse Ox 94 O2 Delivery Mechanical Ventilator O2 Flow Rate 50.00 04/01/22 00:00 Intake Total 2267.5867 ml Output Total 2650 ml Balance -382.4133 ml Constitutional: other (on mech vent, ventilated through trach, unresponsive) Respiratory: other (Intubated, on mech vent, non-communicative; tracheostomy in place) Cardiovascular: regular rate-rhythm Gastrointestional: soft, round; No audible bowel sounds; other (s/p PEG) Extremities: no lower extremity edema bilateral Neurologic/Psychiatric: other (unresponsive) Skin: No rash on exposed areas, No ulcerations on exposed areas Results/Procedures: Labs Laboratory Tests 03/31/22 10:37: Glucometer 274H 03/31/22 15:24: Glucometer 304H 03/31/22 20:57: Glucometer 295H 04/01/22 04:45: Blood Gas Puncture Site LEFT ARTLINE, Blood Gas Patient Temperature 36.2, Arterial Blood pH 7.45H, Arterial Blood Partial Pressure CO2 47H, Arterial Blood Partial Pressure O2 58L, Arterial Blood HCO3 32H, Arterial Blood Total CO2 33.6H , Arterial Blood Oxygen Saturation 91L, Arterial Blood Base Excess 7.7H, Johnathon Test YES-POS, Blood Gas Ventilator Setting YES, Blood Gas Inspired Oxygen 50% 04/01/22 05:05: White Blood Count 8.5, Red Blood Count 3.42L, Hemoglobin 10.9L, Hematocrit 34L, Mean Corpuscular Volume 98, Mean Corpuscular Hemoglobin 32, Mean Corpuscular Hemoglobin Concent 32, Red Cell Distribution Width 14.3, Platelet Count 219, Mean Platelet Volume 10.9, Immature Granulocyte % (Auto) 1, Neutrophils (%) (Auto) 64, Lymphocytes (%) (Auto) 21, Monocytes (%) (Auto) 11, Eosinophils (%) (Auto) 3, Basophils (%) (Auto) 1, Neutrophils # (Auto) 5.4, Lymphocytes # (Auto) 1.7, Monocytes # (Auto) 0.9, Eosinophils # (Auto) 0.2, Basophils # (Auto) 0.1, Immature Granulocyte # (Auto) 0.1, Sodium Level 144, Potassium Level 4.1, Chloride Level 105, Carbon Dioxide Level 32, Anion Gap 7, Blood Urea Nitrogen 43H, Creatinine 0.94, Estimat Glomerular Filtration Rate 92, BUN/Creatinine Ratio 46, Glucose Level 313H, Calcium Level 8.4L, Phosphorus Level 3.8, Magnesium Level 2.1 Microbiology 03/13/22 MRSA Screen - Final, Complete MRSA not isolated 03/12/22 Blood Culture - Final, Complete No growth Laboratory Tests 03/31/22 05:00 04/01/22 05:05 A/P: Assessment: Acute and prolonged resp failure requiring continuing mech vent - extubated on 03/17/22 and reintubated the same day - s/p trach on 03/26/22 - s/p PEG on 03/26/22 Ac systolic CHF - echo on 03/12/22: LVEF 35-40%, mod diffuse hypokinesis of LV Minimal troponin elevation - Type 2 VA d/t hypoxia and transient hypotension CAD with stents x 2 - Family at the bedside reports he had stents done at [facility] in [place], [place] in Nov 2021 at which time he had an VA COPD per ED documentation - acute on chronic exacerbation Documented h/o HTN Renal insufficiency at presentation - resolved with hydration DM per ED documentation HLD per ED documentation Probable NATALIE - advise out pt w/u if he recovers from his current resp failure Morbid obesity - BMI approx 46 Plan: * continue diuretics and heart failure meds iv (as tolerated by bp) * Continue DAPT d/t CAD and family report of recent stent placement in [place] in November 2021 * Add spironolactone through PEG * Consider SGLT2-inhib when able to take oral meds * Continue DVT prophylaxis * Monitor labs closely * Prognosis poor, given continuing resp failure that is unresponsive to treatment * Still awaiting LTAC placement NERISSA GARCIA [facility] Apr 01, 2022 09:12
[2022-04-01] MEDS ORDERED: SPIRONOLACTONE 25 MG (ALDACTONE) TAB PO ONE (09:15)
[2022-04-01] MEDS: LACRI-LUBE OPTHALMIC OINT 3.5 GM TUBE OU SCH ×3 (09:22→21:32)
--- NOTE | 2022-04-01 09:30 | Tele-ICU Progress Note ---
Subjective Date Seen by a Provider: Apr 01, 2022 Time Seen by a Provider: 09:28 Subjective/Events-last exam (Tele-ICU Physician , consultation) Available chart/ vitals / labs / Images reviewed H&P is from ER notes Patient's information available about PMH, allergy reviewed in EMR. ROS as per chart and RN report Video assessment done using teleICU camera, rest of exam as per RN Discussed with RN. Patient apparently had bradycardia last night now heart rate is within normal limit. Reportedly blood pressure is elevated and he was given lisinopril. He had a trach and PEG on 03/26/2022. Today's chest x-ray reviewed and showed trach in good position and the lung volumes are too small probably due to his extreme obesity with elevated diaphragms. Currently he is being sedated with the propofol 15 mcg, TPN and , fentanyl 50 mcg. He is being diuresed with 80 mg of Lasix twice a day. Currently on vent settings 16/600/50/6. PEG tube feeds are at 10 mls/hr as he did not tolerate at 20 mls/hr.BP has been high despite prn iv meds. Impression 1. Acute and chronic respiratory failure requiring intubation and mechanical ventilation. He is extubated and reintubated x2 and currently had a trach and PEG. Will try SBT without reducing the sedation for 2 hours and see whether he tolerates but no intention to extubate today because of multiple medical problems. Reviewed with RN 2. Acute systolic and diastolic congestive heart failure with moderately reduced left ventricular ejection fraction. Will continue diuretic therapy per cardiology service 3. Hypertension uncontrolled 4. Acute kidney injury improved 5. Diabetes mellitus. Patient on sliding scale coverage with insulin. 6. VTE prophylaxis with Lovenox and stress ulcer prophylaxis with PPI. 7. Patient unlikely to be weaned and successfully in the near future in view of multiple medical problems and extreme obesity. Suggest LTAC placement. Apparently has long waiting list. 8. intolerance to peg tube feedings. will do kub now. start azithromycin liquid via peg as irt is a prokinetic agent. 9. start Cardene drip. Sepsis Event Evaluation Height, Weight, BMI Height: '" Weight: lbs. oz. kg; 46.26 BMI Method: Exam Exam Patient acknowledged, consented, and participated in this virtual visit which was conducted using real time audio/video Vital Signs Date Time Temp Pulse Resp B/P (MAP) Pulse Ox O2 Delivery O2 Flow Rate FiO2 04/01/22 08:34 59 149/67 04/01/22 08:00 58 94 Mechanical Ventilator 50.00 04/01/22 07:35 51 16 98 50 04/01/22 07:34 36.2 04/01/22 07:32 56 143/61 04/01/22 07:32 50 140/58 04/01/22 07:11 49 04/01/22 07:00 51 98 Mechanical Ventilator 50.00 04/01/22 06:00 52 16 97 Mechanical Ventilator 50.00 04/01/22 05:00 47 16 98 Mechanical Ventilator 50.00 04/01/22 04:30 36.2 04/01/22 04:00 50 04/01/22 04:00 50 16 99 Mechanical Ventilator 50.00 04/01/22 04:00 97 Mechanical Ventilator 50 04/01/22 03:00 54 16 99 Mechanical Ventilator 50.00 04/01/22 02:21 52 16 98 50 04/01/22 02:00 58 16 98 Mechanical Ventilator 50.00 04/01/22 01:00 50 04/01/22 01:00 50 16 98 Mechanical Ventilator 50.00 04/01/22 00:00 61 16 99 Mechanical Ventilator 50.00 04/01/22 00:00 50 03/31/22 23:59 98 Mechanical Ventilator 50 03/31/22 23:58 36.6 03/31/22 23:15 62 16 97 Mechanical Ventilator 50.00 03/31/22 22:14 62 17 98 50 03/31/22 22:11 54 16 97 Mechanical Ventilator 50.00 03/31/22 21:00 57 16 98 Mechanical Ventilator 50.00 03/31/22 20:54 57 126/59 03/31/22 20:00 50 03/31/22 20:00 60 16 98 Mechanical Ventilator 50.00 03/31/22 20:00 96 Mechanical Ventilator 50 03/31/22 19:56 36.7 03/31/22 19:27 60 16 98 50 03/31/22 19:00 59 16 98 Mechanical Ventilator 50.00 03/31/22 19:00 59 03/31/22 18:35 54 122/50 03/31/22 18:00 54 16 97 Mechanical Ventilator 50.00 12/18/22 17:00 60 20 96 Mechanical Ventilator 50.00 03/31/22 16:54 67 166/66 03/31/22 16:53 67 166/66 03/31/22 16:00 97 Mechanical Ventilator 50 03/31/22 16:00 71 20 97 Mechanical Ventilator 50.00 03/31/22 16:00 36.4 03/31/22 16:00 50 03/31/22 15:39 60 16 98 50 03/31/22 15:37 61 21 97 03/31/22 15:22 64 148/64 03/31/22 15:00 63 21 99 Mechanical Ventilator 50.00 03/31/22 14:00 64 24 100 Mechanical Ventilator 50.00 03/31/22 13:49 70 21 100 03/31/22 13:00 74 20 100 Mechanical Ventilator 50.00 03/31/22 12:59 69 03/31/22 12:35 36.5 03/31/22 12:00 50 03/31/22 12:00 97 Mechanical Ventilator 50 03/31/22 12:00 74 28 100 Mechanical Ventilator 50.00 03/31/22 11:46 36.8 03/31/22 11:14 70 132/61 03/31/22 11:09 70 19 100 50 03/31/22 11:00 75 18 95 Mechanical Ventilator 50.00 03/31/22 10:14 82 124/80 03/31/22 10:00 85 22 97 Mechanical Ventilator 50.00 I & O 04/01/22 07:00 Intake Total 4974.5867 ml Output Total 7050 ml Balance -2075.4133 ml Height & Weight Height: '" Weight: lbs. oz. kg; 46.26 BMI Method: General Appearance: No Apparent Distress, Chronically ill, Obese HEENT: TMs Normal Neck: Other (trach) Respiratory: Lungs Clear, Other (on vent) Cardiovascular: Regular Rate, Rhythm, No Murmur Capillary Refill: Less Than 3 Seconds Peripheral Pulses: 2+ Dorsalis Pedis (R), 2+ Left Dors-Pedis (L) Gastrointestinal: normal bowel sounds, non tender, soft, other (peg site intact, no redness/erythema) Extremity: Normal Capillary Refill, Pedal Edema (trace) Neurologic/Psychiatric: Alert, Oriented x3 Skin: Normal Color Lymphatic: No Adenopathy Results Lab Laboratory Tests 03/31/22 05:00 12/19/22 05:05 Assessment/Plan Assessment/Plan as above Critical Care: Ventilator Management Time spent with patient (mins): 38 AGUSTO TRAN MD Apr 01, 2022 09:30
[2022-04-01] MEDS: LABETALOL HCL 20 MG/4 ML VIAL IV PRN (09:40)
[2022-04-01 10:10] VITALS: BP 190/68
[2022-04-01] MEDS: ENOXAPARIN 40 MG/0.4 ML (LOVENOX) SYR SQ SCH ×2 (10:31→22:46)
[2022-04-01] MEDS: AZITHROMYCIN 100 MG/5 ML (ZITHROMAX) 15ML BTL GT SCH ×2 (11:00→21:43)
[2022-04-01] MEDS: cloNIDine 0.1 MG (CATAPRES) TAB PO SCH ×2 (12:08→21:00)
[2022-04-01] MEDS ORDERED: MIDAZOLAM 2 MG/2 ML (VERSED) VIAL ONE (14:28)
[2022-04-01] MEDS: MIDAZOLAM 2 MG/2 ML (VERSED) VIAL IVP PRN ×2 (14:30→15:46)
[2022-04-01] MEDS ORDERED: FUROSEMIDE 40 MG/4 ML INJ (LASIX) IVP NR (14:30)
--- NOTE | 2022-04-01 14:50 | Diagnostic Imaging Report ---
INDICATION: Respiratory distress. COMPARISON: 03/30/2022 FINDINGS: 2 frontal semiupright radiographic views of the chest were obtained. Indwelling tracheostomy tube is present with the tip at the clavicular heads. Lungs show low inspiratory volumes with hazy opacification of both lung bases. There is no pneumothorax. Depth of inspiration is improved compared to prior exam. Cardiac silhouette and pulmonary vasculature are within normal limits. Osseous structures show no gross acute abnormalities. IMPRESSION: 1. Low lung volumes with probable small bibasilar effusions. Dictated by: Dictated on workstation # [id number]
[2022-04-01 15:09] VITALS: BP 145/55
[2022-04-01] MEDS ORDERED: MIDAZOLAM DRIP PRE-MIX 100 ML IV SCH (16:15)
[2022-04-01] MEDS: POTASSIUM CHLORIDE IV SCH ×10 (17:40)
[2022-04-01] MEDS: [UNRECOGNIZED DRUG - OTHER] IV SCH ×10 (17:40)
[2022-04-01] MEDS: SODIUM ACETATE IV SCH ×10 (17:40)
[2022-04-01 19:06] VITALS: BP 106/50
[2022-04-01] MEDS ORDERED: FUROSEMIDE 40 MG/4 ML INJ (LASIX) IVP ONE (20:00)
[2022-04-01] MEDS ORDERED: LACTULOSE SYRUP 10GM/15ML (ENULOSE) 30ML UDC PEG ONE (22:15)
[2022-04-01] MEDS: meTOprolol TARTRATE 25 MG (LOPRESSOR) TABLET PEG ONE ×2 (22:15→22:45)
--- NOTE | 2022-04-01 22:18 | Progress Note - Hospitalist ---
Subjective HPI/CC On Admission Date Seen by Provider: Apr 01, 2022 Time Seen by Provider: 08:40 Patient is a 61-year-old -[place] male with past medical history of coronary artery disease, hypertension, hyperlipidemia,, COPD who presented to the emergency department due to hypoxia and chest pain. He was seen at the walk-in clinic at [facility] and complained of chest pain to them and he was referred to the emergency department. He has been seen in the ER multiple times in the past week or so but has declined most work-up at those visits. This visit he did allow for labs and x-ray which revealed an NSTEMI. He was admitted for further management. Unfortunately overnight his respiratory status worsened and he required intubation. He is unable to provide me any history due to this and thus all history was obtained from the records. Subjective/Events-last exam He is sedated but awake. He shakes his head yes that he is having pain. He is not short of breath. He expresses that he wants the sedation off. Objective Exam Vital Signs Vital Signs Date Time Temp Pulse Resp B/P (MAP) Pulse Ox O2 Delivery O2 Flow Rate FiO2 04/01/22 20:00 36.8 04/01/22 19:06 105 22 99 50 04/01/22 18:24 127/55 04/01/22 18:00 Mechanical Ventilator 50.00 Capillary Refill : Less Than 3 Seconds General Appearance: No Apparent Distress, Obese Respiratory: No Respiratory Distress, Decreased Breath Sounds Cardiovascular: Regular Rate, Rhythm, No Murmur Gastrointestinal: Normal Bowel Sounds, Non Tender, Soft Extremity: Normal Inspection, Pedal Edema Neurologic/Psychiatric: Alert, Motor Weakness Skin: Normal Color, Warm/Dry Results/Procedures Lab Laboratory Tests 04/01/22 05:05 Patient resulted labs reviewed. Imaging: Reviewed Imaging Report Assessment/Plan Assessment and Plan Assess & Plan/Chief Complaint Acute hypercapnic and hypoxic respiratory failure COPD exacerbation with lower respiratory tract infection Trach/PEG 03/[address] Jessica Linder following s/p antibiotics Continue tube feeds PT/OT Wean sedation as able Social work assisting with discharge planning HTN Stop IV Enalaprilit and Metoprolol Transition to Lisinopril, Metoprolol, and Clonidine IV Hydralazine as needed NSTEMI CAD HLD Likely Type II due to above Cardiology following ASA and Plavix Echo with EF of 35% Ileus Surgery following Begin Lactulose DMII Sliding Scale Insulin DVT prophylaxis: Lovenox Critical Care Critically Ill Patient Diagnosis/Problems Diagnosis/Problems (1) Acute respiratory failure Status: Acute Qualifiers: Respiratory failure complication: hypoxia and hypercapnia Qualified Codes: J96.01 - Acute respiratory failure with hypoxia; J96.02 - Acute respiratory failure with hypercapnia (2) Acute HFrEF (heart failure with reduced ejection fraction) Status: Acute (3) NSTEMI (non-ST elevation myocardial infarction) Status: Acute (4) PNA (pneumonia) Status: Resolved Resolution Date/Time: 03/18/22 @ 18:15 (5) Morbid obesity Status: Chronic (6) COPD (chronic obstructive pulmonary disease) Status: Acute Qualifiers: COPD type: COPD with acute lower respiratory infection Qualified Codes: J44.0 - Chronic obstructive pulmonary disease with (acute) lower respiratory infection (7) Tracheostomy in place Status: Acute (8) Failure to liberate from mechanical ventilation Status: Acute (9) PEG (percutaneous endoscopic gastrostomy) status Status: Acute (10) Ileus Status: Acute MIRACLE MOLINA MD Apr 01, 2022 22:18
[2022-04-01 22:29] VITALS: BP 110/48
[2022-04-01] MEDS: NS IV 1000 ML 1,000 ML IV SCH (22:45)
[2022-04-02] MEDS: inSUlin ASPART (NovoLOG) 1 UNIT/0.01 ML (CHARGE PER UNIT) SC SCH ×5 (00:29→23:25)
[2022-04-02] MEDS: METOCLOPRAMIDE INJ 10 MG/2 ML (REGLAN) IVP SCH ×5 (00:32→23:24)
[2022-04-02] MEDS ORDERED: LACTATED RINGERS 250 ML IV SCH (01:45)
[2022-04-02] MEDS: PROPOFOL DRIP (ICU) 100 ML IV SCH ×4 (02:22→19:38)
[2022-04-02] MEDS: RT-ALBUTEROL/IPRATROPIUM 3 ML (DUONEB) VIAL INH SCH ×6 (03:03→22:20)
[2022-04-02 03:04] VITALS: BP 69/35
[2022-04-02] MEDS ORDERED: LACTATED RINGERS 500 ML IV SCH (04:00)
[2022-04-02] MEDS: fentaNYL DRIP PRE-MIX 250 ML IV SCH (04:26)
[2022-04-02] MEDS: DexMEDEtomidine 250 ML DRIP 250 ML IV SCH ×4 (04:26→20:05)
[2022-04-02 04:53] LABS: BASOPHILS # (AUTO) 0.1 10^3/uL (0.0-0.1); BASOPHILS % (AUTO) 1 % (0-10); EOSINOPHILS # (AUTO) 0.1 10^3/uL (0.0-0.3); EOSINOPHILS % (AUTO) 1 % (0-10); HEMATOCRIT 35 % (40-54); HEMOGLOBIN 11.5 g/dL (13.3-17.7); LYMPHOCYTES # (AUTO) 2.1 10^3/uL (1.0-4.0); LYMPHOCYTES % (AUTO) 15 % (12-44); MEAN CORPUSCULAR HEMOGLOBIN 32 pg (25-34); MEAN CORPUSCULAR HGB CONC 33 g/dL (32-36); MEAN CORPUSCULAR VOLUME 96 fL (80-99); MEAN PLATELET VOLUME 10.9 fL (9.0-12.2); MONOCYTES # (AUTO) 1.5 10^3/uL (0.0-1.0); MONOCYTES % (AUTO) 11 % (0-12); NEUTROPHILS # (AUTO) 10.7 10^3/uL (1.8-7.8); NEUTROPHILS % (AUTO) 73 % (42-75); PLATELET COUNT 258 10^3/uL (130-400); WHITE BLOOD COUNT 14.7 10^3/uL (4.3-11.0)
[2022-04-02 05:00] LABS: CALCIUM 8.4 MG/DL (8.5-10.1); CREATININE SERUM 1.34 MG/DL (0.60-1.30); MAGNESIUM 2.2 MG/DL (1.6-2.4); PHOSPHORUS 4.1 MG/DL (2.3-4.7); POTASSIUM 4.4 MMOL/L (3.6-5.0)
[2022-04-02 05:27] LABS: ABG BASE EXCESS 6.3 MMOL/L (-2.5-2.5); ABG OXYGEN SATURATION 87 % (94-100); ABG PCO2 46 MMHG (35-45); ABG PH 7.44 (7.37-7.43); ABG PO2 58 MMHG (79-93); ABG TCO2 31.9 MMOL/L (21.0-31.0); ALLENS TEST YES-POS; PATIENT TEMP 37.3; VENTILATOR YES
[2022-04-02] MEDS ORDERED: ALBUMIN 5% IV ONE (05:45)
[2022-04-02 05:49] LABS: BILIRUBIN,URINE NEGATIVE (NEGATIVE); CLARITY,URINE CLEAR; COLOR,URINE ORANGE; GLUCOSE, URINE (UA) TRACE (NEGATIVE); KETONES,URINE NEGATIVE (NEGATIVE); LEUKOCYTE ESTERASE ,URINE NEGATIVE (NEGATIVE); NITRITE,URINE NEGATIVE (NEGATIVE); PH,URINE 5.5 (5-9); PROTEIN,URINE NEGATIVE (NEGATIVE)
[2022-04-02] MEDS: MAGNESIUM 1 GM/100 ML IVPB 100 ML IV SCH (06:00)
[2022-04-02] MEDS: FLEET ENEMA ADULT 1 EA BTL PR SCH ×3 (06:00→21:41)
[2022-04-02] MEDS: POTASSIUM CL 10MEQ/50ML IVPB 50 ML IV SCH (06:00)
[2022-04-02] MEDS: KCL 20 MEQ TAB (K-DUR) PO SCH (06:00)
[2022-04-02 06:34] LABS: BACTERIA,URINE MODERATE /HPF; WBC,URINE 0-2 /HPF
[2022-04-02 06:38] VITALS: BP 105/43
--- NOTE | 2022-04-02 06:46 | Occ Therapy Progress Note ---
Therapy Progress Note Pt currently intubated. OT to monitor pt's status then will initiate treatment when pt is medically stable and able to actively participate in skilled therapy. SHANA FERNANDEZ Apr 02, 2022 06:46
[2022-04-02] MEDS: NOREPINEPHRINE 8 MG/250 ML 250 ML IV SCH ×3 (07:00→23:11)
[2022-04-02] MEDS: FUROSEMIDE 40 MG/4 ML INJ (LASIX) IVP SCH ×3 (07:00→17:25)
--- NOTE | 2022-04-02 07:26 | Physical Therapy Progress Note ---
Therapy Progress Note Patient is sedated but "awake" and intubated per report. PT will monitor patient status and initiate treatment when patient is deemed medically stable and able to actively participate with skilled therapy. MARS BERNAL PT Apr 02, 2022 07:26
[2022-04-02 07:55] LABS: BAND NEUTROPHILS 3 %; BASOPHILS % (MANUAL) 0 %; EOSINOPHILS % (MANUAL) 0 %; LYMPHOCYTES % (MANUAL) 16 %; MONOCYTES % (MANUAL) 12 %; MYELOCYTES % 1 %; NEUTROPHILS % (MANUAL) 68 %
[2022-04-02 07:56] LABS: RBC MORPH NORMAL
[2022-04-02] MEDS: meTOprolol TARTRATE 25 MG (LOPRESSOR) TABLET PEG SCH ×3 (07:56→21:21)
[2022-04-02] MEDS: cloNIDine 0.1 MG (CATAPRES) TAB PO SCH ×3 (07:56→21:21)
[2022-04-02] MEDS: SPIRONOLACTONE 25 MG (ALDACTONE) TAB PO SCH ×2 (07:56→08:58)
[2022-04-02] MEDS: lisINopril 20 MG (PRINIVIL) TABLET PO SCH (07:57)
[2022-04-02] MEDS: PANTOPRAZOLE 40 MG (PROTONIX) VIAL IV SCH (08:05)
[2022-04-02] MEDS: ASPIRIN 81 MG CHEW (CHILDREN'S ASA) PO SCH (08:05)
[2022-04-02] MEDS: CLOPIDOGREL 75 MG (PLAVIX) TABLET PO SCH (08:05)
[2022-04-02] MEDS: LACTULOSE SYRUP 10GM/15ML (ENULOSE) 30ML UDC PEG SCH ×2 (08:05→21:21)
[2022-04-02] MEDS: LACRI-LUBE OPTHALMIC OINT 3.5 GM TUBE OU SCH ×3 (08:06→21:23)
--- NOTE | 2022-04-02 08:41 | Progress Note - Cardiology ---
Cardiology SOAP Progress Note Subjective: Remains intubated and sedated Objective: I&O/Vital Signs 04/02/22 04/02/22 04/02/22 04/02/22 03:54 04:00 04:00 04:06 Pulse 86 86 Resp 16 16 B/P (MAP) 99/64 (76) Pulse Ox 94 94 94 O2 Delivery Mechanical Ventilator Mechanical Ventilator Mechanical Ventilator O2 Flow Rate 30.00 30.00 FiO2 30 30 04/02/22 04/02/22 04/02/22 04/02/22 04:13 04:38 05:46 06:06 Pulse 85 89 92 89 Resp 16 16 16 16 B/P (MAP) 105/67 (80) Pulse Ox 94 94 94 95 O2 Delivery Mechanical Ventilator Mechanical Ventilator Mechanical Ventilator Mechanical Ventilator O2 Flow Rate 30.00 30.00 30.00 30.00 04/02/22 04/02/22 04/02/22 04/02/22 06:38 07:00 07:37 07:38 Temp 37.5 Pulse 87 86 84 Resp 21 B/P (MAP) Pulse Ox 95 95 O2 Delivery Mechanical Ventilator O2 Flow Rate 30.00 FiO2 30 04/02/22 04/02/22 04/02/22 04/02/22 07:47 07:47 08:00 08:04 Pulse 87 86 B/P (MAP) 118/46 Pulse Ox 96 95 O2 Delivery Mechanical Ventilator Mechanical Ventilator O2 Flow Rate 30.00 FiO2 30 30 04/02/22 04/02/22 04/02/22 04/02/22 09:00 10:00 10:17 10:19 Pulse 100 82 84 84 Resp 23 B/P (MAP) 135/55 Pulse Ox 95 95 95 O2 Delivery Mechanical Ventilator Mechanical Ventilator O2 Flow Rate 30.00 30.00 FiO2 30 04/02/22 04/02/22 04/02/22 04/02/22 11:00 11:51 12:00 12:00 Temp 37.2 Pulse 90 93 B/P (MAP) Pulse Ox 96 96 O2 Delivery Mechanical Ventilator Mechanical Ventilator O2 Flow Rate 30.00 30.00 FiO2 30 04/02/22 04/02/22 04/02/22 04/02/22 12:00 13:00 13:09 14:44 Pulse 114 112 118 Resp 25 B/P (MAP) Pulse Ox 97 95 96 O2 Delivery Mechanical Ventilator Mechanical Ventilator O2 Flow Rate 30.00 FiO2 30 30 04/02/22 15:38 Pulse 117 B/P (MAP) 177/61 04/02/22 00:00 Intake Total 1265 ml Output Total 5800 ml Balance -4535 ml Constitutional: other (on mech vent, ventilated through trach, unresponsive) Respiratory: other (Intubated, on mech vent, non-communicative; tracheostomy in place) Cardiovascular: regular rate-rhythm Gastrointestional: soft, round; No audible bowel sounds; other (s/p PEG) Extremities: no lower extremity edema bilateral Neurologic/Psychiatric: other (unresponsive) Skin: No rash on exposed areas, No ulcerations on exposed areas Results/Procedures: Labs Laboratory Tests 04/01/22 17:33: Glucometer 242H 04/02/22 00:22: Glucometer 241H 04/02/22 04:30: White Blood Count 14.7H, Red Blood Count 3.60L, Hemoglobin 11.5L, Hematocrit 35L , Mean Corpuscular Volume 96, Mean Corpuscular Hemoglobin 32, Mean Corpuscular Hemoglobin Concent 33, Red Cell Distribution Width 14.3, Platelet Count 258, Mean Platelet Volume 10.9, Immature Granulocyte % (Auto) 1, Neutrophils (%) (Auto) 73, Lymphocytes (%) (Auto) 15, Monocytes (%) (Auto) 11, Eosinophils (%) (Auto) 1, Basophils (%) (Auto) 1, Neutrophils # (Auto) 10.7H, Lymphocytes # (Auto) 2.1, Monocytes # (Auto) 1.5H, Eosinophils # (Auto) 0.1, Basophils # (Auto) 0.1, Immature Granulocyte # (Auto) 0.2H, Neutrophils % (Manual) 68, Lymphocytes % (Manual) 16, Monocytes % (Manual) 12, Eosinophils % (Manual) 0, Basophils % (Manual) 0, Myelocytes % 1, Band Neutrophils 3, Blood Morphology Comment NORMAL, Sodium Level 142, Potassium Level 4.4, Chloride Level 102, Carbon Dioxide Level 26, Anion Gap 14, Blood Urea Nitrogen 53H, Creatinine 1.34H , Estimat Glomerular Filtration Rate 60, BUN/Creatinine Ratio 40, Glucose Level 283H, Calcium Level 8.4L, Phosphorus Level 4.1, Magnesium Level 2.2, Proc alcitonin 0.26H 04/02/22 04:55: Blood Gas Puncture Site RIGHT RADIAL, Blood Gas Patient Temperature 37.3, Arterial Blood pH 7.44H, Arterial Blood Partial Pressure CO2 46H, Arterial Blood Partial Pressure O2 58L, Arterial Blood HCO3 31H, Arterial Blood Total CO2 31.9H , Arterial Blood Oxygen Saturation 87L, Arterial Blood Base Excess 6.3H, Johnathon Test YES-POS, Blood Gas Ventilator Setting YES, Blood Gas Inspired Oxygen NA 04/02/22 05:05: Urine Color ORANGE, Urine Clarity CLEAR, Urine pH 5.5, Urine Specific [place] 1.015L, Urine Protein NEGATIVE, Urine Glucose (UA) TRACEH, Urine Ketones NEGATIVE, Urine Nitrite NEGATIVE, Urine Bilirubin NEGATIVE, Urine Urobilinogen 2.0, Urine Leukocyte Esterase NEGATIVE, Urine RBC (Auto) TRACE-IH, Urine RBC 2- 5H, Urine WBC 0-2, Urine Crystals NONE, Urine Bacteria MODERATEH, Urine Casts PRESENT, Urine Hyaline Casts 2-5H, Urine Mucus MODERATEH, Urine Culture Indicated YES 04/02/22 05:55: Lactic Acid Level 1.15 04/02/22 10:34: Glucometer 236H 04/02/22 15:32: Glucometer 262H Microbiology 03/13/22 MRSA Screen - Final, Complete MRSA not isolated 03/12/22 Blood Culture - Final, Complete No growth A/P: Assessment: Acute and prolonged resp failure requiring continuing mech vent - extubated on 03/17/22 and reintubated the same day - s/p trach on 03/26/22 - s/p PEG on 03/26/22 Ac systolic CHF - echo on 03/12/22: LVEF 35-40%, mod diffuse hypokinesis of LV Minimal troponin elevation - Type 2 [place] d/t hypoxia and transient hypotension CAD with stents x 2 - Family at the bedside reports he had stents done at [facility] in [place], [place] in Nov 2021 at which time he had an [place] COPD per ED documentation - acute on chronic exacerbation Documented h/o HTN Renal insufficiency at presentation - resolved with hydration DM per ED documentation HLD per ED documentation Probable NATALIE - advise out pt w/u if he recovers from his current resp failure Morbid obesity - BMI approx 46 Plan: * continue diuretics (reduce diuretic dose d/t worsening renal function) * continue heart failure meds iv (as tolerated by bp) * Continue DAPT d/t CAD and family report of recent stent placement in [place] in November 2021 * Add spironolactone through PEG * Consider SGLT2-inhib when able to take oral meds * Continue DVT prophylaxis * Monitor labs closely * Prognosis poor, given continuing resp failure that is unresponsive to treatment * Still awaiting LTAC placement FREDDY ERICKSON Apr 02, 2022 08:41
[2022-04-02] MEDS: niCARdipine IV (Pyxis drip kit 50 MG in NS (IVPB) 230 ML IV SCH ×2 (08:57→19:15)
[2022-04-02] MEDS: AZITHROMYCIN 100 MG/5 ML (ZITHROMAX) 15ML BTL GT SCH ×2 (08:57→21:20)
[2022-04-02 10:17] VITALS: BP 144/55
[2022-04-02] MEDS: 1/2 NS IV SOLUTION 1,000 ML IV SCH (10:20)
--- NOTE | 2022-04-02 10:33 | Tele-ICU Progress Note ---
Subjective Date Seen by a Provider: Apr 02, 2022 Time Seen by a Provider: 10:31 Subjective/Events-last exam (Tele-ICU Physician , Progress Note ) Service provided via interactive audio and video telecommunications E-CARE system to a patient admitted to ICU bed in [facility]. Available chart/ vitals / labs / Images reviewed Video assessment done using teleICU camera, rest of exam as per RN Discussed with RN Events overnight : issues with returned volumes on vent - VENT CHANGED - doing well Afebrile hemodynamically stable Respiratory - I/O = VENT SETTINGS and ABG reviewed Sedation: RASS discussed with RN , - IV Fentany @ 50l and Propofol @ 20 , TG's 137, also on IV Precedex @ 0.4 NOT CANDIDATE for SBTreviewed possible contraindications including Cardiovascular Stability /Sedation Score / FI02/PEEP / ABG / CXR/ secretions Drips: tpn Pressors- no Consultants: Hospital course: (03/12) 61M Admitted for COPD/CHF, bronchitis. Hypercapenic. ?NSTEMI. INTUBATED in ICU (03/17) EXTUBATED AND REINTUBATED. Worsening pulmonary edema. (03/21) Needs KUB. Cannot do d/t weight. Surgery consulted. (03/22) EXTUBATED AND THEN REINTUBATED. Hypertensive (03/24) Large ngt output, tf on hold. 03/26-AC 26/Vt 500/FiO2 55%/ (03/26) s/p tracheostomy and PEG, TPN started 04/02- issues with returned volumes on vent - VENT CHANGED - doing well A/P Acute resp failure - s/p ETT 03/12 , has been extubated x 2, reintubated on 03/22, TRACH 03/26 04/02- issues with returned volumes on vent - VENT CHANGED - doing well now -AC AC 16 , Vt 600, Peak Paw in 20s 30 % PEEP 8 - secretions moderate - cont nebs Delirium - CONT FENTANYL PATCH AND ATIVAN PRN -on propofol 50 , fent 50, precedex 1.5- trying to wean off HTN severe . - cardene gtt and lasix - both stopped now Hypotension .20 - ? volume shift after agressive diureis - ? responded to albumin - will hold morning lasix - follow UO and BP -sepsis w/up sent ,04/02 OFF ABX ( z max dose for GI motility ) Ac systolic CHF. CAD - echo on 03/12/22: LVEF 35-40%, mod diffuse hypokinesis of LV -on lasix - on holf 04/02 - as per cards COPD suspercted - acute on chronic exacerbation - not on steroid , cont nebs Anemia 03/26 - Hb drop 3 g - follow , no acute bleeding - stable HB last 3 days Hypernatremia - with diuresis , IVF stopped - adjust NA in TPN , start H2O GAEL at presentation - worse today slightly - follow closely DM - ISS TF have been on hold due to large NG output and plans for PEG - - started on TPN - TF and advance as tolerated - @ 20cc/h - still high residuals , cont reglan and Z max 100 - If advanced - will start to cut down TPN Lines : triple PICC , (Central Line Necessity Reviewed) Jenkins: + OG: Nutrition: po + TPN Analgesia: Anxiety/ delirium VTE Prophylaxis: viktoria 40 Stress Ulcer Prophylaxis: PPI Plans in collaboration with bedside consultants and IM MDs. discussed with Dr Walker Discussed with RN to reach out if any questions or concerns A total of 40 minutes of critical care time was devoted to this patient today, required to treat and/or prevent further deterioration of critical care condition ( as above ) . Sepsis Event Evaluation Height, Weight, BMI Height: '" Weight: lbs. oz. kg; 45.46 BMI Method: Focused Exam Lactate Level 04/02/22 05:55: Lactic Acid Level 1.15 Exam Exam Patient acknowledged, consented, and participated in this virtual visit which was conducted using real time audio/video Vital Signs Date Time Temp Pulse Resp B/P (MAP) Pulse Ox O2 Delivery O2 Flow Rate FiO2 04/02/22 10:19 84 135/55 04/02/22 10:17 84 23 95 30 04/02/22 08:04 86 118/46 04/02/22 08:00 87 95 Mechanical Ventilator 30.00 04/02/22 07:47 96 Mechanical Ventilator 30 04/02/22 07:47 30 04/02/22 07:38 84 04/02/22 07:37 37.5 04/02/22 07:00 86 95 Mechanical Ventilator 30.00 04/02/22 06:38 87 21 95 30 04/02/22 06:06 89 16 95 Mechanical Ventilator 30.00 04/02/22 05:46 92 16 94 Mechanical Ventilator 30.00 04/02/22 04:38 89 16 94 Mechanical Ventilator 30.00 04/02/22 04:13 85 16 94 Mechanical Ventilator 30.00 105/67 (80) 04/02/22 04:06 86 16 94 Mechanical Ventilator 30.00 99/64 (76) 04/02/22 04:00 30 04/02/22 04:00 94 Mechanical Ventilator 30 04/02/22 03:54 86 16 94 Mechanical Ventilator 30.00 04/02/22 03:04 87 22 98 30 04/02/22 02:45 90 16 98 Mechanical Ventilator 30.00 04/02/22 01:41 85 16 98 Mechanical Ventilator 50.00 04/02/22 01:00 84 04/02/22 00:39 95 16 97 Mechanical Ventilator 50.00 04/02/22 00:00 30 04/01/22 23:59 98 Mechanical Ventilator 30 04/01/22 23:35 89 16 98 Mechanical Ventilator 50.00 04/01/22 22:29 90 20 99 40 04/01/22 22:00 97 16 100 Mechanical Ventilator 50.00 04/01/22 21:05 99 16 100 Mechanical Ventilator 50.00 04/01/22 20:00 103 16 99 Mechanical Ventilator 50.00 04/01/22 20:00 100 Mechanical Ventilator 50 04/01/22 20:00 50 04/01/22 20:00 36.8 04/01/22 19:06 105 22 99 50 04/01/22 19:00 107 16 97 Mechanical Ventilator 50.00 04/01/22 19:00 107 04/01/22 18:24 112 127/55 04/01/22 18:24 112 129/55 04/01/22 18:00 110 25 100 Mechanical Ventilator 50.00 04/01/22 17:27 102 16 127/53 04/01/22 17:00 112 16 100 Mechanical Ventilator 50.00 04/01/22 16:57 112 106/52 04/01/22 16:36 121 164/63 04/01/22 16:22 112 16 115/52 04/01/22 16:09 124 135/48 04/01/22 16:00 36.4 04/01/22 16:00 100 Mechanical Ventilator 50 04/01/22 16:00 120 16 100 Mechanical Ventilator 50.00 04/01/22 15:51 50 04/01/22 15:09 118 19 99 50 04/01/22 15:00 118 23 98 Mechanical Ventilator 50.00 04/01/22 14:36 109 147/72 04/01/22 14:00 86 23 99 Mechanical Ventilator 50.00 04/01/22 13:31 86 224/74 04/01/22 13:00 64 47 92 Mechanical Ventilator 50.00 04/01/22 12:58 69 04/01/22 12:42 69 199/73 04/01/22 12:07 70 190/68 04/01/22 12:02 74 193/69 04/01/22 12:00 80 25 96 Mechanical Ventilator 50.00 04/01/22 12:00 50 04/01/22 12:00 Mechanical Ventilator 50 04/01/22 12:00 36.7 04/01/22 11:00 63 18 98 Mechanical Ventilator 50.00 I & O 04/02/22 07:00 Intake Total 2825 ml Output Total 8000 ml Balance -5175 ml Height & Weight Height: '" Weight: lbs. oz. kg; 45.46 BMI Method: General Appearance: No Apparent Distress, Obese HEENT: TMs Normal Neck: Other (trach) Respiratory: No Respiratory Distress, Decreased Breath Sounds Cardiovascular: Regular Rate, Rhythm, No Murmur Capillary Refill: Less Than 3 Seconds Peripheral Pulses: 2+ Dorsalis Pedis (R), 2+ Left Dors-Pedis (L) Gastrointestinal: normal bowel sounds, non tender, soft, other (peg site intact, no redness/erythema) Extremity: Normal Inspection, Pedal Edema Neurologic/Psychiatric: Alert, Motor Weakness Skin: Normal Color, Warm/Dry Lymphatic: No Adenopathy Results Lab Laboratory Tests 04/01/22 05:05 04/02/22 04:30 Assessment/Plan Assessment/Plan 1 MILAGROS HUBER MD Apr 02, 2022 10:32
[2022-04-02] MEDS: ENOXAPARIN 40 MG/0.4 ML (LOVENOX) SYR SQ SCH ×2 (12:03→23:08)
[2022-04-02 14:44] VITALS: BP 206/65
--- NOTE | 2022-04-02 15:28 | Progress Note - Cardiology ---
Cardiology SOAP Progress Note Subjective: on mech vent, ventilated through trach, unresponsive Objective: I&O/Vital Signs 04/02/22 04/02/22 04/02/22 04/02/22 03:54 04:00 04:00 04:06 Pulse 86 86 Resp 16 16 B/P (MAP) 99/64 (76) Pulse Ox 94 94 94 O2 Delivery Mechanical Ventilator Mechanical Ventilator Mechanical Ventilator O2 Flow Rate 30.00 30.00 FiO2 30 30 04/02/22 04/02/22 04/02/22 04/02/22 04:13 04:38 05:46 06:06 Pulse 85 89 92 89 Resp 16 16 16 16 B/P (MAP) 105/67 (80) Pulse Ox 94 94 94 95 O2 Delivery Mechanical Ventilator Mechanical Ventilator Mechanical Ventilator Mechanical Ventilator O2 Flow Rate 30.00 30.00 30.00 30.00 04/02/22 04/02/22 04/02/22 04/02/22 06:38 07:00 07:37 07:38 Temp 37.5 Pulse 87 86 84 Resp 21 B/P (MAP) Pulse Ox 95 95 O2 Delivery Mechanical Ventilator O2 Flow Rate 30.00 FiO2 30 04/02/22 04/02/22 04/02/22 04/02/22 07:47 07:47 08:00 08:04 Pulse 87 86 B/P (MAP) 118/46 Pulse Ox 96 95 O2 Delivery Mechanical Ventilator Mechanical Ventilator O2 Flow Rate 30.00 FiO2 30 30 04/02/22 04/02/22 04/02/22 04/02/22 09:00 10:00 10:17 10:19 Pulse 100 82 84 84 Resp 23 B/P (MAP) 135/55 Pulse Ox 95 95 95 O2 Delivery Mechanical Ventilator Mechanical Ventilator O2 Flow Rate 30.00 30.00 FiO2 30 04/02/22 04/02/22 04/02/22 04/02/22 11:00 11:51 12:00 12:00 Temp 37.2 Pulse 90 93 B/P (MAP) Pulse Ox 96 96 O2 Delivery Mechanical Ventilator Mechanical Ventilator O2 Flow Rate 30.00 30.00 FiO2 30 04/02/22 04/02/22 04/02/22 04/02/22 12:00 13:00 13:09 14:44 Pulse 114 112 118 Resp 25 B/P (MAP) Pulse Ox 97 95 96 O2 Delivery Mechanical Ventilator Mechanical Ventilator O2 Flow Rate 30.00 FiO2 30 30 04/02/22 00:00 Intake Total 1265 ml Output Total 5800 ml Balance -4535 ml Constitutional: other (on mech vent, ventilated through trach, unresponsive) Respiratory: other (Intubated, on mech vent, non-communicative; tracheostomy in place) Cardiovascular: regular rate-rhythm Gastrointestional: soft, round; No audible bowel sounds; other (s/p PEG) Extremities: no lower extremity edema bilateral Neurologic/Psychiatric: other (unresponsive) Skin: No rash on exposed areas, No ulcerations on exposed areas Results/Procedures: Labs Laboratory Tests 04/01/22 17:33: Glucometer 242H 04/02/22 00:22: Glucometer 241H 04/02/22 04:30: White Blood Count 14.7H, Red Blood Count 3.60L, Hemoglobin 11.5L, Hematocrit 35L , Mean Corpuscular Volume 96, Mean Corpuscular Hemoglobin 32, Mean Corpuscular Hemoglobin Concent 33, Red Cell Distribution Width 14.3, Platelet Count 258, Mean Platelet Volume 10.9, Immature Granulocyte % (Auto) 1, Neutrophils (%) (Auto) 73, Lymphocytes (%) (Auto) 15, Monocytes (%) (Auto) 11, Eosinophils (%) (Auto) 1, Basophils (%) (Auto) 1, Neutrophils # (Auto) 10.7H, Lymphocytes # (Auto) 2.1, Monocytes # (Auto) 1.5H, Eosinophils # (Auto) 0.1, Basophils # (Auto) 0.1, Immature Granulocyte # (Auto) 0.2H, Neutrophils % (Manual) 68, L ymphocytes % (Manual) 16, Monocytes % (Manual) 12, Eosinophils % (Manual) 0, Basophils % (Manual) 0, Myelocytes % 1, Band Neutrophils 3, Blood Morphology Comment NORMAL, Sodium Level 142, Potassium Level 4.4, Chloride Level 102, Carbon Dioxide Level 26, Anion Gap 14, Blood Urea Nitrogen 53H, Creatinine 1.34H , Estimat Glomerular Filtration Rate 60, BUN/Creatinine Ratio 40, Glucose Level 283H, Calcium Level 8.4L, Phosphorus Level 4.1, Magnesium Level 2.2, Procalcitonin 0.26H 04/02/22 04:55: Blood Gas Puncture Site RIGHT RADIAL, Blood Gas Patient Temperature 37.3, Arterial Blood pH 7.44H, Arterial Blood Partial Pressure CO2 46H, Arterial Blood Partial Pressure O2 58L, Arterial Blood HCO3 31H, Arterial Blood Total CO2 31.9H , Arterial Blood Oxygen Saturation 87L, Arterial Blood Base Excess 6.3H, Johnathon Test YES-POS, Blood Gas Ventilator Setting YES, Blood Gas Inspired Oxygen NA 04/02/22 05:05: Urine Color ORANGE, Urine Clarity CLEAR, Urine pH 5.5, Urine Specific [place] 1.015L, Urine Protein NEGATIVE, Urine Glucose (UA) TRACEH, Urine Ketones NEGATIVE, Urine Nitrite NEGATIVE, Urine Bilirubin NEGATIVE, Urine Urobilinogen 2.0, Urine Leukocyte Esterase NEGATIVE, Urine RBC (Auto) TRACE-IH, Urine RBC 2- 5H, Urine WBC 0-2, Urine Crystals NONE, Urine Bacteria MODERATEH, Urine Casts PRESENT, Urine Hyaline Casts 2-5H, Urine Mucus MODERATEH, Urine Culture Indicated YES 04/02/22 05:55: Lactic Acid Level 1.15 04/02/22 10:34: Glucometer 236H Microbiology 03/13/22 MRSA Screen - Final, Complete MRSA not isolated 03/12/22 Blood Culture - Final, Complete No growth Laboratory Tests 04/01/22 05:05 04/02/22 04:30 A/P: Assessment: Acute and prolonged resp failure requiring continuing mech vent - extubated on 03/17/22 and reintubated the same day - s/p trach on 03/26/22 - s/p PEG on 03/26/22 Ac systolic CHF - echo on 03/12/22: LVEF 35-40%, mod diffuse hypokinesis of LV Minimal troponin elevation - Type 2 [place] d/t hypoxia and transient hypotension CAD with stents x 2 - Family at the bedside reports he had stents done at [facility] in [place], [place] in Nov 2021 at which time he had an [place] COPD per ED documentation - acute on chronic exacerbation Documented h/o HTN Renal insufficiency at presentation - resolved with hydration DM per ED documentation HLD per ED documentation Probable NATALIE - advise out pt w/u if he recovers from his current resp failure Morbid obesity - BMI approx 46 Plan: * continue diuretics (reduce diuretic dose d/t worsening renal function) * continue heart failure meds iv (as tolerated by bp) * Continue DAPT d/t CAD and family report of recent stent placement in [place] in November 2021 * Add spironolactone through PEG * Consider SGLT2-inhib when able to take oral meds * Continue DVT prophylaxis * Monitor labs closely * Prognosis poor, given continuing resp failure that is unresponsive to treatment * Still awaiting LTAC placement NERISSA GARCIA MD FACP [facility] Apr 02, 2022 15:28
[2022-04-02] MEDS: SODIUM ACETATE IV SCH ×10 (17:28)
[2022-04-02] MEDS: [UNRECOGNIZED DRUG - OTHER] IV SCH ×10 (17:28)
[2022-04-02] MEDS: POTASSIUM CHLORIDE IV SCH ×10 (17:28)
--- NOTE | 2022-04-02 17:44 | Progress Note - Hospitalist ---
Subjective HPI/CC On Admission Date Seen by Provider: Apr 02, 2022 Time Seen by Provider: 08:45 Patient is a 61-year-old -[place] male with past medical history of coronary artery disease, hypertension, hyperlipidemia,, COPD who presented to the emergency department due to hypoxia and chest pain. He was seen at the walk-in clinic at [facility] and complained of chest pain to them and he was referred to the emergency department. He has been seen in the ER multiple times in the past week or so but has declined most work-up at those visits. This visit he did allow for labs and x-ray which revealed an NSTEMI. He was admitted for further management. Unfortunately overnight his respiratory status worsened and he required intubation. He is unable to provide me any history due to this and thus all history was obtained from the records. Subjective/Events-last exam He remains sedated and mechanically ventilated. Focused Exam Lactate Level 04/02/22 05:55: Lactic Acid Level 1.15 Objective Exam Vital Signs Vital Signs Date Time Temp Pulse Resp B/P (MAP) Pulse Ox O2 Delivery O2 Flow Rate FiO2 04/02/22 15:59 37.2 04/02/22 15:59 30 04/02/22 15:59 96 Mechanical Ventilator 04/02/22 15:57 117 154/58 04/02/22 14:44 25 04/02/22 13:00 30.00 Capillary Refill : Less Than 3 Seconds General Appearance: No Apparent Distress, Obese Neck: Supple, Other (tracheostomy) Respiratory: No Respiratory Distress, Decreased Breath Sounds, Other (mechanically ventilated) Cardiovascular: Regular Rate, Rhythm, No Murmur Gastrointestinal: Normal Bowel Sounds, Soft; No Distended Extremity: Normal Inspection, Pedal Edema Neurologic/Psychiatric: Other (sedated) Skin: Normal Color, Warm/Dry Results/Procedures Lab Laboratory Tests 04/02/22 04:30 Patient resulted labs reviewed. Imaging: Reviewed Imaging Report Assessment/Plan Assessment and Plan Assess & Plan/Chief Complaint Acute hypercapnic and hypoxic respiratory failure COPD exacerbation with lower respiratory tract infection Trach/PEG 03/[address] Jessica Linder following s/p antibiotics Continue tube feeds PT/OT Wean sedation as able Social work assisting with discharge planning HTN Off IV Cardene Continue Metoprolol and Clonidine Resume Lisinopril if able IV Hydralazine as needed NSTEMI CAD HLD Likely Type II due to above Cardiology following ASA and Plavix Echo with EF of 35% Ileus Seems to be improving Surgery following Continue Lactulose DMII Sliding Scale Insulin DVT prophylaxis: Lovenox Critical Care Critically Ill Patient Diagnosis/Problems Diagnosis/Problems (1) Acute respiratory failure Status: Acute Qualifiers: Respiratory failure complication: hypoxia and hypercapnia Qualified Codes: J96.01 - Acute respiratory failure with hypoxia; J96.02 - Acute respiratory failure with hypercapnia (2) Acute HFrEF (heart failure with reduced ejection fraction) Status: Acute (3) NSTEMI (non-ST elevation myocardial infarction) Status: Acute (4) PNA (pneumonia) Status: Resolved Resolution Date/Time: 03/18/22 @ 18:15 (5) Morbid obesity Status: Chronic (6) COPD (chronic obstructive pulmonary disease) Status: Acute Qualifiers: COPD type: COPD with acute lower respiratory infection Qualified Codes: J44.0 - Chronic obstructive pulmonary disease with (acute) lower respiratory infection (7) Tracheostomy in place Status: Acute (8) Failure to liberate from mechanical ventilation Status: Acute (9) PEG (percutaneous endoscopic gastrostomy) status Status: Acute (10) Ileus Status: Acute MIRACLE MOLINA MD Apr 02, 2022 17:44
[2022-04-02 18:25] VITALS: BP 112/45
[2022-04-02 22:20] VITALS: BP 123/55
[2022-04-02] MEDS: NS IV 1000 ML 1,000 ML IV SCH (23:13)
[2022-04-02] MEDS: ACETAMINOPHEN 325 MG TABLET PO PRN (23:24)
[2022-04-03] MEDS: DexMEDEtomidine 250 ML DRIP 250 ML IV SCH ×5 (00:27→23:55)
[2022-04-03] MEDS: PROPOFOL DRIP (ICU) 100 ML IV SCH ×3 (01:49→23:55)
[2022-04-03 03:10] VITALS: BP 115/64
[2022-04-03] MEDS: RT-ALBUTEROL/IPRATROPIUM 3 ML (DUONEB) VIAL INH SCH ×6 (03:10→22:46)
[2022-04-03 05:09] LABS: BASOPHILS # (AUTO) 0.1 10^3/uL (0.0-0.1); BASOPHILS % (AUTO) 0 % (0-10); EOSINOPHILS # (AUTO) 0.1 10^3/uL (0.0-0.3); EOSINOPHILS % (AUTO) 1 % (0-10); HEMATOCRIT 34 % (40-54); HEMOGLOBIN 11.2 g/dL (13.3-17.7); LYMPHOCYTES # (AUTO) 2.1 10^3/uL (1.0-4.0); LYMPHOCYTES % (AUTO) 14 % (12-44); MEAN CORPUSCULAR HEMOGLOBIN 32 pg (25-34); MEAN CORPUSCULAR HGB CONC 33 g/dL (32-36); MEAN CORPUSCULAR VOLUME 96 fL (80-99); MEAN PLATELET VOLUME 11.4 fL (9.0-12.2); MONOCYTES # (AUTO) 1.4 10^3/uL (0.0-1.0); MONOCYTES % (AUTO) 9 % (0-12); NEUTROPHILS # (AUTO) 11.6 10^3/uL (1.8-7.8); NEUTROPHILS % (AUTO) 75 % (42-75); PLATELET COUNT 262 10^3/uL (130-400); WHITE BLOOD COUNT 15.5 10^3/uL (4.3-11.0)
[2022-04-03 05:37] LABS: POTASSIUM 4.3 MMOL/L (3.6-5.0)
[2022-04-03 05:39] LABS: CALCIUM 8.3 MG/DL (8.5-10.1)
[2022-04-03 05:43] LABS: CREATININE SERUM 1.08 MG/DL (0.60-1.30)
[2022-04-03 05:46] LABS: MAGNESIUM 2.5 MG/DL (1.6-2.4)
[2022-04-03] MEDS: METOCLOPRAMIDE INJ 10 MG/2 ML (REGLAN) IVP SCH ×4 (06:01→23:38)
[2022-04-03] MEDS: hydrALAZINE (APESOLINE) 20 MG/ML VIAL IV PRN (06:01)
[2022-04-03 06:45] VITALS: BP 191/62
--- NOTE | 2022-04-03 06:47 | Occ Therapy Progress Note ---
Therapy Progress Note Pt currently intubated. OT to monitor pt's status then will initiate treatment when pt is medically stable and able to actively participate in skilled therapy. SHANA FERNANDEZ Apr 03, 2022 06:47
[2022-04-03] MEDS: fentaNYL DRIP PRE-MIX 250 ML IV SCH (06:53)
[2022-04-03] MEDS: inSUlin ASPART (NovoLOG) 1 UNIT/0.01 ML (CHARGE PER UNIT) SC SCH ×4 (07:25→23:37)
[2022-04-03] MEDS: MAGNESIUM 1 GM/100 ML IVPB 100 ML IV SCH (07:35)
[2022-04-03] MEDS: POTASSIUM CL 10MEQ/50ML IVPB 50 ML IV SCH (07:35)
[2022-04-03] MEDS: KCL 20 MEQ TAB (K-DUR) PO SCH (07:36)
[2022-04-03] MEDS: FLEET ENEMA ADULT 1 EA BTL PR SCH ×3 (07:37→22:00)
--- NOTE | 2022-04-03 07:55 | Physical Therapy Progress Note ---
Therapy Progress Note Patient is sedated and intubated per report. PT will monitor patient status and initiate treatment when patient is deemed medically stable and able to actively participate with skilled therapy. NILSA GONZALEZ PT Apr 03, 2022 07:55
[2022-04-03] MEDS: FUROSEMIDE 40 MG/4 ML INJ (LASIX) IVP SCH ×2 (08:00→17:19)
[2022-04-03] MEDS: PANTOPRAZOLE 40 MG (PROTONIX) VIAL IV SCH (08:46)
[2022-04-03] MEDS: LORazepam INJ 2 MG/ML (ATIVAN) VIAL IVP PRN (08:46)
[2022-04-03] MEDS: LACRI-LUBE OPTHALMIC OINT 3.5 GM TUBE OU SCH ×3 (08:46→20:13)
[2022-04-03] MEDS: LACTULOSE SYRUP 10GM/15ML (ENULOSE) 30ML UDC PEG SCH ×2 (08:47→20:10)
[2022-04-03] MEDS ORDERED: VANCOMYCIN INJECTION 0.1 MG in NS (IVPB) 250 ML IV SCH (09:00)
[2022-04-03] MEDS ORDERED: PIPERACILLIN SODIUM/TAZOBACTAM 4.5 GM in NS (IVPB) 100 ML IV NR (09:00)
[2022-04-03] MEDS: cloNIDine 0.1 MG (CATAPRES) TAB PO SCH ×3 (09:03→20:13)
[2022-04-03] MEDS: SPIRONOLACTONE 25 MG (ALDACTONE) TAB PO SCH (09:03)
[2022-04-03] MEDS: meTOprolol TARTRATE 25 MG (LOPRESSOR) TABLET PEG SCH ×2 (09:03→20:10)
[2022-04-03] MEDS: lisINopril 20 MG (PRINIVIL) TABLET PO SCH (09:03)
[2022-04-03] MEDS: CLOPIDOGREL 75 MG (PLAVIX) TABLET PO SCH (09:04)
[2022-04-03] MEDS: ASPIRIN 81 MG CHEW (CHILDREN'S ASA) PO SCH (09:04)
[2022-04-03] MEDS: AZITHROMYCIN 100 MG/5 ML (ZITHROMAX) 15ML BTL GT SCH ×2 (09:04→20:31)
--- NOTE | 2022-04-03 09:12 | Diagnostic Imaging Report ---
INDICATION: Fever COMPARISON: 04/01/2022 FINDINGS: Trach tube tip projects over the midthoracic trachea. Right basilar pulmonary opacities largely resolved likely resolution of partial atelectasis. Left basilar subsegmental atelectasis has decreased. No adverse change. IMPRESSION: Improved basilar lung expansion. No pleural fluid. No pneumothorax or adverse change. Dictated by: Dictated on workstation # [id number]
--- NOTE | 2022-04-03 09:20 | Progress Note - Cardiology ---
Cardiology SOAP Progress Note Objective: I&O/Vital Signs 04/02/22 04/02/22 04/02/22 04/02/22 22:00 22:20 23:00 23:24 Temp 38.2 Pulse 96 97 96 Resp 30 26 24 B/P (MAP) 114/52 (72) Pulse Ox 97 96 97 FiO2 30 04/02/22 04/02/22 04/03/22 04/03/22 23:34 23:57 00:00 00:33 Temp 38.2 39.3 O2 Delivery Mechanical Ventilator FiO2 30 30 04/03/22 04/03/22 04/03/22 04/03/22 00:40 01:00 01:00 02:00 Temp 39.1 Pulse 98 97 96 95 Resp 26 B/P (MAP) 94/52 (66) 100/53 (69) Pulse Ox 97 95 04/03/22 04/03/22 04/03/22 04/03/22 03:00 03:10 03:34 04:00 Temp 37.8 Pulse 97 101 95 Resp 28 26 17 B/P (MAP) 120/55 (76) 160/77 (104) Pulse Ox 98 96 97 O2 Delivery Mechanical Ventilator O2 Flow Rate 30.00 FiO2 30 04/03/22 04/03/22 04/03/22 04/03/22 04:00 04:00 05:00 06:00 Pulse 97 101 Resp 17 29 B/P (MAP) 175/81 (112) Pulse Ox 97 97 O2 Delivery Mechanical Ventilator Mechanical Ventilator Mechanical Ventilator O2 Flow Rate 30.00 30.00 FiO2 30 30 04/03/22 04/03/22 04/03/22 04/03/22 06:45 07:00 07:00 07:34 Temp 36.6 Pulse 117 117 117 Resp 28 27 B/P (MAP) Pulse Ox 97 96 O2 Delivery Mechanical Ventilator O2 Flow Rate 30.00 FiO2 30 04/03/22 04/03/22 08:00 09:00 Pulse 114 125 Resp 19 13 B/P (MAP) 183/94 (123) Pulse Ox 97 100 O2 Delivery Mechanical Ventilator Mechanical Ventilator O2 Flow Rate 30.00 30.00 04/03/22 00:00 Intake Total 2665.5867 ml Output Total 1995 ml Balance 670.5867 ml Constitutional: other (on mech vent, ventilated through trach, unresponsive) Respiratory: other (Intubated, on mech vent, non-communicative; tracheostomy in place) Cardiovascular: regular rate-rhythm Gastrointestional: soft, round; No audible bowel sounds; other (s/p PEG) Extremities: no lower extremity edema bilateral Neurologic/Psychiatric: other (unresponsive) Skin: No rash on exposed areas, No ulcerations on exposed areas Results/Procedures: Labs Laboratory Tests 04/02/22 10:34: Glucometer 236H 04/02/22 15:32: Glucometer 262H 04/03/22 04:50: White Blood Count 15.5H, Red Blood Count 3.50L, Hemoglobin 11.2L, Hematocrit 34L , Mean Corpuscular Volume 96, Mean Corpuscular Hemoglobin 32, Mean Corpuscular Hemoglobin Concent 33, Red Cell Distribution Width 14.5, Platelet Count 262, Mean Platelet Volume 11.4, Immature Granulocyte % (Auto) 1, Neutrophils (%) (Auto) 75, Lymphocytes (%) (Auto) 14, Monocytes (%) (Auto) 9, Eosinophils (%) (Auto) 1, Basophils (%) (Auto) 0, Neutrophils # (Auto) 11.6H, Lymphocytes # (Auto) 2.1, Monocytes # (Auto) 1.4H, Eosinophils # (Auto) 0.1, Basophils # (Auto) 0.1, Immature Granulocyte # (Auto) 0.2H, Sodium Level 143, Potassium Level 4.3, Chloride Level 108H, Carbon Dioxide Level 21, Anion Gap 14, Blood Urea Nitrogen 54H, Creatinine 1.08, Estimat Glomerular Filtration Rate 78, BUN/Creatinine Ratio 50, Glucose Level 343H, Calcium Level 8.3L, Phosphorus Level 3.0, Magnesium Level 2.5H, Procalcitonin 0.25H 04/03/22 05:38: Glucometer 293H 04/03/22 08:55: Microbiology 03/13/22 MRSA Screen - Final, Complete MRSA not isolated 03/12/22 Blood Culture - Final, Complete No growth Procedures NAME: WATSON KHALIL Niki [facility] REC#: [id number] PT STATUS: ADM IN : 1960 PHYSICIAN: MIRACLE MOLINA MD ADMIT DATE: 03/11/22/ICU Draft Date of Exam:04/03/22 CHEST 1 VIEW, AP/PA ONLY INDICATION: Fever COMPARISON: 04/01/2022 FINDINGS: Trach tube tip projects over the midthoracic trachea. Right basilar pulmonary opacities largely resolved likely resolution of partial atelectasis. Left basilar subsegmental atelectasis has decreased. No adverse change. IMPRESSION: Improved basilar lung expansion. No pleural fluid. No pneumothorax or adverse change. Dictated on workstation # [id number] Dict: 04/03/22 0900 Trans: 04/03/22 0910 [facility] 0622-0217 Interpreted by: CHINTAN DICKERSON Electronically signed by: A/P: Assessment: Acute and prolonged resp failure requiring continuing mech vent - extubated on 03/17/22 and reintubated the same day - s/p trach on 03/26/22 - s/p PEG on 03/26/22 Leukocytosis - source undetermined - management per medical services Ac systolic CHF - echo on 03/12/22: LVEF 35-40%, mod diffuse hypokinesis of LV Minimal troponin elevation - Type 2 AR d/t hypoxia and transient hypotension CAD with stents x 2 - Family at the bedside reports he had stents done at [facility] in [place], [place] in Nov 2021 at which time he had an AR COPD per ED documentation - acute on chronic exacerbation Documented h/o HTN Renal insufficiency at presentation - resolved with hydration DM per ED documentation HLD per ED documentation Probable NATALIE - advise out pt w/u if he recovers from his current resp failure Morbid obesity - BMI approx 46 Plan: * continue diuretics - renal function improved with reduction of dose * continue heart failure meds iv (as tolerated by bp) * Continue DAPT d/t CAD and family report of recent stent placement in [place] in November 2021 * Add spironolactone through PEG * Consider SGLT2-inhib when able to take oral meds * Continue DVT prophylaxis * Monitor labs closely * Leukocytosis - undetermined etiology - management per medical/surgical services * Prognosis poor, given continuing resp failure that is unresponsive to treatm ent * Still awaiting LTAC placement FREDDY ERICKSON Apr 03, 2022 09:20
--- NOTE | 2022-04-03 09:33 | Tele-ICU Progress Note ---
Subjective Date Seen by a Provider: Apr 03, 2022 Time Seen by a Provider: 09:33 Subjective/Events-last exam (Tele-ICU Physician , Progress Note ) Service provided via interactive audio and video telecommunications E-CARE system to a patient admitted to ICU bed in [facility]. Available chart/ vitals / labs / Images reviewed Video assessment done using teleICU camera, rest of exam as per RN Discussed with RN Events overnight : issues with returned volumes on vent - VENT CHANGED - doing well Afebrile hemodynamically stable Respiratory - I/O = VENT SETTINGS and ABG reviewed Sedation: RASS discussed with RN , - IV Fentany @ 50 and Propofol @ 210 , TG's 137, also on IV Precedex @ 1.0 NOT CANDIDATE for SBTreviewed possible contraindications including Cardiovascular Stability /Sedation Score / FI02/PEEP / ABG / CXR/ secretions Drips: tpn Pressors- no Consultants: Hospital course: (03/12) 61M Admitted for COPD/CHF, bronchitis. Hypercapenic. ?NSTEMI. INTUBATED in ICU (03/17) EXTUBATED AND REINTUBATED. Worsening pulmonary edema. (03/21) Needs KUB. Cannot do d/t weight. Surgery consulted. (03/22) EXTUBATED AND THEN REINTUBATED. Hypertensive (03/24) Large ngt output, tf on hold. 03/26-AC 26/Vt 500/FiO2 55%/ (03/26) s/p tracheostomy and PEG, TPN started 04/02- issues with returned volumes on vent - VENT CHANGED - doing well 04/03- STARTING vanco and Zosyn , CT abd A/P Acute resp failure - s/p ETT 03/12 , has been extubated x 2, reintubated on 03/22, TRACH 03/26 04/02- issues with returned volumes on vent - VENT CHANGED - doing well now -AC 16 , Vt 600, Peak Paw in 20s 40 % PEEP 8 - secretions moderate - cont nebs Delirium - CONT FENTANYL PATCH AND ATIVAN PRN -on propofol 50 , fent 50, precedex 1.5- trying to wean off HTN severe 12.19 - cardene gtt and lasix - both stopped now Suspected sepsis Hypotension 12.20 - ? volume shift after agressive diureis - responded to albumin , -sepsis w/up sent 04/02 while OFF ABX ( z max dose for GI motility ) 04/03-STARTING vanco and Zosyn, CT abd pending Ac systolic CHF. CAD - echo on 03/12/22: LVEF 35-40%, mod diffuse hypokinesis of LV -on lasix - on holf 04/02 - as per cards COPD suspercted - acute on chronic exacerbation - not on steroid , cont nebs Anemia 03/26 - Hb drop 3 g - follow , no acute bleeding - stable HB last 3 days Hypernatremia - with diuresis , IVF stopped - adjust NA in TPN GAEL at presentation - worse today slightly - follow closely DM - ISS TF have been on hold due to large NG output and plans for PEG - CONT TPN - TF and advance as tolerated - @ 20cc/h - still high residuals 04/02 - TF STOPPED 04/03 , hold reglan and Z-max 100 - If advanced - will start to cut down TPN Lines : triple PICC , (Central Line Necessity Reviewed) Jenkins: + OG: Nutrition: TPN Analgesia: Anxiety/ delirium VTE Prophylaxis: viktoria 40 Stress Ulcer Prophylaxis: PPI Plans in collaboration with bedside consultants and IM MDs. discussed with Dr Walker Discussed with RN to reach out if any questions or concerns A total of 33 minutes of critical care time was devoted to this patient today, required to treat and/or prevent further deterioration of critical care condition ( as above ) . Sepsis Event Evaluation Height, Weight, BMI Height: '" Weight: lbs. oz. kg; 45.46 BMI Method: Focused Exam Lactate Level 04/02/22 05:55: Lactic Acid Level 1.15 04/03/22 08:55: Lactic Acid Level 1.08 Lactic Acid Level Laboratory Tests Test 04/03/22 08:55 Lactic Acid Level 1.08 MMOL/L (0.50-2.00) Exam Exam Patient acknowledged, consented, and participated in this virtual visit which was conducted using real time audio/video Vital Signs Date Time Temp Pulse Resp B/P (MAP) Pulse Ox O2 Delivery O2 Flow Rate FiO2 04/03/22 09:00 125 13 100 Mechanical Ventilator 30.00 04/03/22 08:00 114 19 183/94 (123) 97 Mechanical Ventilator 30.00 04/03/22 07:34 36.6 04/03/22 07:00 117 27 96 Mechanical Ventilator 30.00 04/03/22 07:00 117 04/03/22 06:45 117 28 97 30 04/03/22 06:00 101 29 175/81 (112) 97 Mechanical Ventilator 30.00 04/03/22 05:00 97 17 97 Mechanical Ventilator 30.00 04/03/22 04:00 30 04/03/22 04:00 Mechanical Ventilator 30 04/03/22 04:00 95 17 160/77 (104) 97 Mechanical Ventilator 30.00 04/03/22 03:34 37.8 04/03/22 03:10 101 26 96 30 04/03/22 03:00 97 28 120/55 (76) 98 04/03/22 02:00 39.1 95 26 100/53 (69) 95 04/03/22 01:00 96 04/03/22 01:00 97 26 94/52 (66) 97 04/03/22 00:40 98 04/03/22 00:33 39.3 04/03/22 00:00 30 04/02/22 23:57 38.2 04/02/22 23:34 Mechanical Ventilator 30 04/02/22 23:24 38.2 04/02/22 23:00 96 24 114/52 (72) 97 04/02/22 22:20 97 26 96 30 04/02/22 22:00 96 30 97 04/02/22 21:00 107 23 97 04/02/22 20:09 38.0 04/02/22 20:05 115 135/55 04/02/22 20:00 116 98 Mechanical Ventilator 30.00 04/02/22 20:00 30 04/02/22 20:00 116 26 97 Mechanical Ventilator 30.00 04/02/22 19:30 Mechanical Ventilator 30 04/02/22 19:00 105 98 Mechanical Ventilator 30.00 04/02/22 19:00 105 04/02/22 18:25 106 23 97 30 04/02/22 18:00 106 98 Mechanical Ventilator 30.00 04/02/22 17:00 110 96 Mechanical Ventilator 30.00 04/02/22 16:00 117 96 Mechanical Ventilator 30.00 04/02/22 15:59 37.2 04/02/22 15:59 30 04/02/22 15:59 96 Mechanical Ventilator 30 04/02/22 15:57 117 154/58 04/02/22 15:38 117 177/61 04/02/22 15:00 118 97 Mechanical Ventilator 30.00 04/02/22 14:44 118 25 96 30 04/02/22 14:00 112 97 Mechanical Ventilator 30.00 04/02/22 13:09 112 04/02/22 13:00 114 95 Mechanical Ventilator 30.00 04/02/22 12:00 97 Mechanical Ventilator 30 04/02/22 12:00 93 96 Mechanical Ventilator 30.00 04/02/22 12:00 30 04/02/22 11:51 37.2 04/02/22 11:00 90 96 Mechanical Ventilator 30.00 04/02/22 10:19 84 135/55 04/02/22 10:17 84 23 95 30 04/02/22 10:00 82 95 Mechanical Ventilator 30.00 I & O 04/03/22 07:00 Intake Total 4790.5867 ml Output Total 3155 ml Balance 1635.5867 ml Height & Weight Height: '" Weight: lbs. oz. kg; 45.46 BMI Method: General Appearance: No Apparent Distress, Obese HEENT: TMs Normal Neck: Supple, Other (tracheostomy) Respiratory: No Respiratory Distress, Decreased Breath Sounds, Other (mechanically ventilated) Cardiovascular: Regular Rate, Rhythm, No Murmur Capillary Refill: Less Than 3 Seconds Peripheral Pulses: 2+ Dorsalis Pedis (R), 2+ Left Dors-Pedis (L) Gastrointestinal: normal bowel sounds, non tender, soft, other (peg site intact, no redness/erythema) Extremity: Normal Inspection, Pedal Edema Neurologic/Psychiatric: Other (sedated) Skin: Normal Color, Warm/Dry Lymphatic: No Adenopathy Results Lab Laboratory Tests 04/02/22 04:30 04/03/22 04:50 Assessment/Plan Assessment/Plan 1 MILAGROS HUBER MD Apr 03, 2022 09:33
[2022-04-03] MEDS ORDERED: VANCOMYCIN 2000 MG/NS 500 ML IVPB IV ONE ×2 (10:00)
[2022-04-03] MEDS: 1/2 NS IV SOLUTION 1,000 ML IV SCH (10:00)
[2022-04-03 10:42] VITALS: BP 149/88
[2022-04-03] MEDS: FENTANYL PATCH REMOVAL TP SCH (11:10)
[2022-04-03] MEDS: ENOXAPARIN 40 MG/0.4 ML (LOVENOX) SYR SQ SCH ×2 (11:11→23:36)
[2022-04-03] MEDS: fentaNYL PATCH 50 MCG (DURAGESIC) TD SCH (11:12)
--- NOTE | 2022-04-03 12:04 | Diagnostic Imaging Report ---
PROCEDURE: CT abdomen and pelvis with contrast. TECHNIQUE: Multiple contiguous axial images were obtained through the abdomen and pelvis after administration of intravenous contrast. Auto Exposure Controls were utilized during the CT exam to meet ALARA standards for radiation dose reduction. All CT scans use one or more of the following dose optimizing techniques: automated exposure control, MA and/or KvP adjustment based on patient size and exam type or iterative reconstruction. INDICATION: Questionable leak around the PEG tube. No prior studies are available for comparison. FINDINGS: There is trace pleural fluid on the left. There is consolidation with air bronchograms bilateral lower lobes, greatest on the right. A moderate amount of subcutaneous emphysema is identified in the anterior abdominal wall on the left side at the level lower chest and upper abdomen. Patient does have a PEG tube. PEG tube appears to be within the stomach. Bowel loops are grossly unremarkable. There is moderate stool in the rectum. No free fluid is seen in the abdomen or pelvis. Liver is unremarkable. The pancreas, spleen, adrenal glands and kidneys are unremarkable. Aorta is nonaneurysmal. Bladder is decompressed by Jenkins catheter. Prostate is unremarkable. Overall quality study is compromised due to patient motion. IMPRESSION: 1. Bibasilar consolidation, greatest on the right and perhaps owing to pneumonia or atelectasis. 2. There is moderate amount of subcutaneous emphysema in the anterior left abdominal wall. There is a PEG tube in place. No significant abnormality in the abdomen or pelvis is identified. Dictated by: Dictated on workstation # [id number]
--- NOTE | 2022-04-03 12:47 | Progress Note - Cardiology ---
Cardiology SOAP Progress Note Subjective: on mech vent, ventilated through trach, unresponsive Objective: I&O/Vital Signs 04/03/22 04/03/22 04/03/22 04/03/22 01:00 01:00 02:00 03:00 Temp 39.1 Pulse 97 96 95 97 Resp 26 26 28 B/P (MAP) 94/52 (66) 100/53 (69) 120/55 (76) Pulse Ox 97 95 98 04/03/22 04/03/22 04/03/22 04/03/22 03:10 03:34 04:00 04:00 Temp 37.8 Pulse 101 95 Resp 26 17 B/P (MAP) 160/77 (104) Pulse Ox 96 97 O2 Delivery Mechanical Ventilator Mechanical Ventilator O2 Flow Rate 30.00 FiO2 30 30 04/03/22 04/03/22 04/03/22 04/03/22 04:00 05:00 06:00 06:45 Pulse 97 101 117 Resp 17 29 28 B/P (MAP) 175/81 (112) Pulse Ox 97 97 97 O2 Delivery Mechanical Ventilator Mechanical Ventilator O2 Flow Rate 30.00 30.00 FiO2 30 30 04/03/22 04/03/22 04/03/22 04/03/22 07:00 07:00 07:34 08:00 Temp 36.6 Pulse 117 117 114 Resp 27 19 B/P (MAP) 183/94 (123) Pulse Ox 96 97 O2 Delivery Mechanical Ventilator Mechanical Ventilator O2 Flow Rate 30.00 30.00 04/03/22 04/03/22 04/03/22 04/03/22 09:00 10:00 10:42 11:00 Pulse 125 101 109 109 Resp 13 14 27 43 B/P (MAP) 150/91 (110) 154/95 (114) Arterial Line Pulse Ox 100 100 99 100 O2 Delivery Mechanical Ventilator Mechanical Ventilator Mechanical Ventilator O2 Flow Rate 30.00 30.00 30.00 FiO2 30 04/03/22 12:00 Pulse 128 Resp 34 B/P (MAP) 160/95 (116) Pulse Ox 96 O2 Delivery Mechanical Ventilator O2 Flow Rate 30.00 04/03/22 00:00 Intake Total 2665.5867 ml Output Total 1995 ml Balance 670.5867 ml Constitutional: other (on mech vent, ventilated through trach, unresponsive) Respiratory: other (Intubated, on mech vent, non-communicative; tracheostomy in place) Cardiovascular: regular rate-rhythm Gastrointestional: soft, round; No audible bowel sounds; other (s/p PEG) Extremities: no lower extremity edema bilateral Neurologic/Psychiatric: other (unresponsive) Skin: No rash on exposed areas, No ulcerations on exposed areas Results/Procedures: Labs Laboratory Tests 04/02/22 15:32: Glucometer 262H 04/03/22 04:50: White Blood Count 15.5H, Red Blood Count 3.50L, Hemoglobin 11.2L, Hematocrit 34L , Mean Corpuscular Volume 96, Mean Corpuscular Hemoglobin 32, Mean Corpuscular Hemoglobin Concent 33, Red Cell Distribution Width 14.5, Platelet Count 262, Mean Platelet Volume 11.4, Immature Granulocyte % (Auto) 1, Neutrophils (%) (Auto) 75, Lymphocytes (%) (Auto) 14, Monocytes (%) (Auto) 9, Eosinophils (%) (Auto) 1, Basophils (%) (Auto) 0, Neutrophils # (Auto) 11.6H, Lymphocytes # (Auto) 2.1, Monocytes # (Auto) 1.4H, Eosinophils # (Auto) 0.1, Basophils # (Auto) 0.1, Immature Granulocyte # (Auto) 0.2H, Sodium Level 143, Potassium Level 4.3, Chloride Level 108H, Carbon Dioxide Level 21, Anion Gap 14, Blood Urea Nitrogen 54H, Creatinine 1.08, Estimat Glomerular Filtration Rate 78, B UN/Creatinine Ratio 50, Glucose Level 343H, Calcium Level 8.3L, Phosphorus Level 3.0, Magnesium Level 2.5H, Procalcitonin 0.25H 04/03/22 05:38: Glucometer 293H 04/03/22 08:55: Lactic Acid Level 1.08 Microbiology 03/13/22 MRSA Screen - Final, Complete MRSA not isolated 03/12/22 Blood Culture - Final, Complete No growth Laboratory Tests 04/02/22 04:30 04/03/22 04:50 A/P: Assessment: Acute and prolonged resp failure requiring continuing mech vent - extubated on 03/17/22 and reintubated the same day - s/p trach on 03/26/22 - s/p PEG on 03/26/22 Leukocytosis / sepsis - Hospitalist and eICU services managing Ac systolic CHF - echo on 03/12/22: LVEF 35-40%, mod diffuse hypokinesis of LV Minimal troponin elevation - Type 2 MA d/t hypoxia and transient hypotension CAD with stents x 2 - Family at the bedside reports he had stents done at [facility] in [place], [place] in Nov 2021 at which time he had an MA COPD per ED documentation - acute on chronic exacerbation Documented h/o HTN Renal insufficiency at presentation - resolved with hydration DM per ED documentation HLD per ED documentation Probable NATALIE - advise out pt w/u if he recovers from his current resp failure Morbid obesity - BMI approx 46 Plan: * diuretics to be used as needed * continue heart failure meds (as tolerated by bp) * Continue DAPT d/t CAD and family report of recent stent placement in [place] in November 2021 * Add spironolactone through PEG * Consider SGLT2-inhib when able to take oral meds * Continue DVT prophylaxis * Monitor labs closely * Leukocytosis - undetermined etiology - management per Medical and eICU and Surgical services * Prognosis poor, given continuing resp failure that is unresponsive to treatment NERISSA GARCIA MD FACP FAC CCDS Apr 03, 2022 12:47
[2022-04-03] MEDS: NOREPINEPHRINE 8 MG/250 ML 250 ML IV SCH ×3 (12:50→21:00)
[2022-04-03] MEDS: niCARdipine IV (Pyxis drip kit 50 MG in NS (IVPB) 230 ML IV SCH ×2 (13:51→15:14)
--- NOTE | 2022-04-03 14:27 | Progress Note - Hospitalist ---
Subjective HPI/CC On Admission Date Seen by Provider: Apr 03, 2022 Time Seen by Provider: 08:50 Patient is a 61-year-old -[place] male with past medical history of coronary artery disease, hypertension, hyperlipidemia,, COPD who presented to the emergency department due to hypoxia and chest pain. He was seen at the walk-in clinic at [facility] and complained of chest pain to them and he was referred to the emergency department. He has been seen in the ER multiple times in the past week or so but has declined most work-up at those visits. This visit he did allow for labs and x-ray which revealed an NSTEMI. He was admitted for further management. Unfortunately overnight his respiratory status worsened and he required intubation. He is unable to provide me any history due to this and thus all history was obtained from the records. Subjective/Events-last exam He remains sedated. There is no family at the bedside. THe RN reports there has been feculent material leaking around the PEG tube. He has been having bowel movements. Focused Exam Lactate Level 04/02/22 05:55: Lactic Acid Level 1.15 04/03/22 08:55: Lactic Acid Level 1.08 Objective Exam Vital Signs Vital Signs Date Time Temp Pulse Resp B/P (MAP) Pulse Ox O2 Delivery O2 Flow Rate FiO2 04/03/22 13:30 102 04/03/22 12:00 34 160/95 (116) 96 Mechanical Ventilator 30.00 04/03/22 12:00 38.1 04/03/22 10:42 30 Capillary Refill : Less Than 3 Seconds General Appearance: No Apparent Distress, Obese Respiratory: No Respiratory Distress, Decreased Breath Sounds Cardiovascular: No Murmur, Tachycardia Gastrointestinal: Normal Bowel Sounds, Soft; No Distended; Other (PEG with brown fluid on gauze surrounding tube) Extremity: Normal Inspection, Pedal Edema Neurologic/Psychiatric: Other (sedated) Skin: Normal Color, Warm/Dry Results/Procedures Lab Laboratory Tests 04/03/22 04:50 Patient resulted labs reviewed. Imaging: Reviewed Imaging Report Assessment/Plan Assessment and Plan Assess & Plan/Chief Complaint Acute hypercapnic and hypoxic respiratory failure COPD exacerbation with lower respiratory tract infection Acute HFrEF Trach/PEG 03/[address] Jessica Linder following s/p antibiotics Continue tube feeds PT/OT Wean sedation as able Social work assisting with discharge planning SIRS PEG complication Fever, leukocytosis, tachycardia Blood cultures overnight positive for coag negative staph Repeat blood cultures Lactic acid negative Add Vanc and Zosyn Obtain CT abdomen Discussed case with Dr. Lopez HTN Off IV Cardene Continue Metoprolol and Clonidine Resume Lisinopril if able IV Hydralazine as needed NSTEMI CAD HLD Likely Type II due to above Cardiology following ASA and Plavix Echo with EF of 35% Ileus Seems to be improving Surgery following Continue Lactulose DMII Sliding Scale Insulin DVT prophylaxis: Lovenox Critical Care Critically Ill Patient Diagnosis/Problems Diagnosis/Problems (1) Acute respiratory failure Status: Acute Qualifiers: Respiratory failure complication: hypoxia and hypercapnia Qualified Codes: J96.01 - Acute respiratory failure with hypoxia; J96.02 - Acute respiratory failure with hypercapnia (2) Acute HFrEF (heart failure with reduced ejection fraction) Status: Acute (3) NSTEMI (non-ST elevation myocardial infarction) Status: Acute (4) PNA (pneumonia) Status: Resolved Resolution Date/Time: 03/18/22 @ 18:15 (5) Morbid obesity Status: Chronic (6) COPD (chronic obstructive pulmonary disease) Status: Acute Qualifiers: COPD type: COPD with acute lower respiratory infection Qualified Codes: J44.0 - Chronic obstructive pulmonary disease with (acute) lower respiratory infection (7) Tracheostomy in place Status: Acute (8) Failure to liberate from mechanical ventilation Status: Acute (9) PEG (percutaneous endoscopic gastrostomy) status Status: Acute (10) Ileus Status: Acute MIRACLE MOLINA MD Apr 03, 2022 14:27
[2022-04-03] MEDS ORDERED: PIPERACILLIN SODIUM/TAZOBACTAM 4.5 GM in NS (IVPB) 100 ML IV SCH (15:00)
[2022-04-03 15:12] VITALS: BP 153/71
[2022-04-03] MEDS: PIPERACILLIN SODIUM/TAZOBACTAM 4.5 GM in NS (IVPB) 100 ML IV SCH (17:19)
--- NOTE | 2022-04-03 17:56 | Progress Note ---
Subjective Date Seen by a Provider: Apr 03, 2022 Time Seen by a Provider: 17:00 Subjective/Events-last exam called to evaluate g-tube exit site drainage. staff states, brownish and foul smelling. drainage minimal. no surrounding skin redness or erythema. tracheostomy site intact with exudative drainage. trach functional. patient remains critically ill. Focused Exam Lactate Level 04/02/22 05:55: Lactic Acid Level 1.15 04/03/22 08:55: Lactic Acid Level 1.08 Objective Exam Vital Signs Date Time Temp Pulse Resp B/P (MAP) Pulse Ox O2 Delivery O2 Flow Rate FiO2 04/03/22 16:00 37.3 04/03/22 16:00 111 22 142/76 (98) 94 Mechanical Ventilator 30.00 04/03/22 15:34 30 04/03/22 15:12 117 29 96 30 04/03/22 15:00 117 29 153/71 (98) 97 Mechanical Ventilator 30.00 04/03/22 14:00 111 34 179/93 (121) 96 Mechanical Ventilator 30.00 04/03/22 13:30 102 04/03/22 13:00 110 37 158/87 (110) 93 Mechanical Ventilator 30.00 04/03/22 12:00 99 Mechanical Ventilator 30 04/03/22 12:00 30 04/03/22 12:00 128 34 160/95 (116) 96 Mechanical Ventilator 30.00 04/03/22 12:00 38.1 04/03/22 11:00 109 43 154/95 (114) 100 Mechanical Ventilator 30.00 04/03/22 10:42 109 27 99 30 04/03/22 10:00 101 14 150/91 (110) 100 Mechanical Ventilator 30.00 Arterial Line 04/03/22 09:00 125 13 100 Mechanical Ventilator 30.00 04/03/22 08:00 114 19 183/94 (123) 97 Mechanical Ventilator 30.00 04/03/22 08:00 30 04/03/22 08:00 97 Mechanical Ventilator 30 04/03/22 07:34 36.6 04/03/22 07:00 117 27 96 Mechanical Ventilator 30.00 04/03/22 07:00 117 04/03/22 06:45 117 28 97 30 04/03/22 06:00 101 29 175/81 (112) 97 Mechanical Ventilator 30.00 04/03/22 05:00 97 17 97 Mechanical Ventilator 30.00 04/03/22 04:00 30 04/03/22 04:00 Mechanical Ventilator 30 04/03/22 04:00 95 17 160/77 (104) 97 Mechanical Ventilator 30.00 04/03/22 03:34 37.8 04/03/22 03:10 101 26 96 30 04/03/22 03:00 97 28 120/55 (76) 98 04/03/22 02:00 39.1 95 26 100/53 (69) 95 04/03/22 01:00 96 04/03/22 01:00 97 26 94/52 (66) 97 04/03/22 00:40 98 04/03/22 00:33 39.3 04/03/22 00:00 30 04/02/22 23:57 38.2 04/02/22 23:34 Mechanical Ventilator 30 04/02/22 23:24 38.2 04/02/22 23:00 96 24 114/52 (72) 97 04/02/22 22:20 97 26 96 30 04/02/22 22:00 96 30 97 04/02/22 21:00 107 23 97 04/02/22 20:09 38.0 04/02/22 20:05 115 135/55 04/02/22 20:00 116 98 Mechanical Ventilator 30.00 04/02/22 20:00 30 04/02/22 20:00 116 26 97 Mechanical Ventilator 30.00 04/02/22 19:30 Mechanical Ventilator 30 04/02/22 19:00 105 98 Mechanical Ventilator 30.00 04/02/22 19:00 105 04/02/22 18:25 106 23 97 30 04/02/22 18:00 106 98 Mechanical Ventilator 30.00 I & O 04/03/22 07:00 Intake Total 4790.5867 ml Output Total 3155 ml Balance 1635.5867 ml Capillary Refill : Less Than 3 Seconds General Appearance: No Apparent Distress Neck: Full Range of Motion Respiratory: Decreased Breath Sounds, Rhonci Cardiovascular: Regular Rate, Rhythm Gastrointestinal: soft, tenderness, other (brownish drainage per peg site, no rednes/erythema) Extremity: Normal Capillary Refill Neurologic/Psychiatric: Alert, Oriented x3 Skin: Normal Color Lymphatic: No Adenopathy Results Lab Laboratory Tests 04/03/22 04:50: White Blood Count 15.5H, Red Blood Count 3.50L, Hemoglobin 11.2L, Hematocrit 34L , Mean Corpuscular Volume 96, Mean Corpuscular Hemoglobin 32, Mean Corpuscular Hemoglobin Concent 33, Red Cell Distribution Width 14.5, Platelet Count 262, Mean Platelet Volume 11.4, Immature Granulocyte % (Auto) 1, Neutrophils (%) (Auto) 75, Lymphocytes (%) (Auto) 14, Monocytes (%) (Auto) 9, Eosinophils (%) (Auto) 1, Basophils (%) (Auto) 0, Neutrophils # (Auto) 11.6H, Lymphocytes # (Auto) 2.1, Monocytes # (Auto) 1.4H, Eosinophils # (Auto) 0.1, Basophils # (Auto) 0.1, Immature Granulocyte # (Auto) 0.2H, Sodium Level 143, Potassium Level 4.3, Chloride Level 108H, Carbon Dioxide Level 21, Anion Gap 14, Blood Urea Nitrogen 54H, Creatinine 1.08, Estimat Glomerular Filtration Rate 78, BUN/Creatinine Ratio 50, Glucose Level 343H, Calcium Level 8.3L, Phosphorus Level 3.0, Magnesium Level 2.5H, Procalcitonin 0.25H 04/03/22 05:38: Glucometer 293H 04/03/22 08:55: Lactic Acid Level 1.08 04/03/22 13:31: Glucometer 320H Microbiology 04/03/22 Catheter Tip Culture - Preliminary, Resulted 04/02/22 Blood Culture - Preliminary, Resulted Staph, Coag Neg (STORE MGR) 04/02/22 Urine Culture - Final, Complete NO GROWTH 03/13/22 MRSA Screen - Final, Complete MRSA not isolated Assessment/Plan Assessment/Plan Assess & Plan/Chief Complaint on vent sedated with NSTEMI and respiratory failure with ileus s/p tracheostomy and PEG placement filed multiple extubation attempts and now intubated for 2 weeks. recommend drain sponge gauze daily and PRN to trach and PEG site. has developed mild brownish drainage per PEG exit site. 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 our recommendation is to allow the tract to mature. later if he doesn't need the g-tube, treatment would be to remove the PEG tube and allow both the gastrocutaneous and colocutaneous fistulas to close on own over time. patient is not a stable candidate for any major surgery/laparotomy. ANALIA SALAZAR MD Apr 03, 2022 17:56
[2022-04-03] MEDS: SODIUM ACETATE IV SCH ×10 (18:32)
[2022-04-03] MEDS: POTASSIUM CHLORIDE IV SCH ×10 (18:32)
[2022-04-03] MEDS: [UNRECOGNIZED DRUG - OTHER] IV SCH ×10 (18:32)
[2022-04-03 18:47] VITALS: BP 155/83
[2022-04-03] MEDS: VANCOMYCIN 1500 MG/NS 500 ML IVPB IV SCH ×2 (21:34)
[2022-04-03 22:46] VITALS: BP 146/88
[2022-04-03] MEDS: NS IV 1000 ML 1,000 ML IV SCH (23:43)
[2022-04-04] MEDS: PIPERACILLIN SODIUM/TAZOBACTAM 4.5 GM in NS (IVPB) 100 ML IV SCH ×3 (01:14→18:39)
[2022-04-04] MEDS: niCARdipine IV (Pyxis drip kit 50 MG in NS (IVPB) 230 ML IV SCH ×3 (01:30→20:44)
[2022-04-04 03:35] VITALS: BP 152/78
[2022-04-04] MEDS: RT-ALBUTEROL/IPRATROPIUM 3 ML (DUONEB) VIAL INH SCH ×7 (03:35→23:44)
[2022-04-04] MEDS: ACETAMINOPHEN 325 MG TABLET PO PRN (05:07)
[2022-04-04] MEDS: METOCLOPRAMIDE INJ 10 MG/2 ML (REGLAN) IVP SCH ×4 (05:07→23:29)
[2022-04-04 05:12] LABS: ABG BASE EXCESS 1.4 MMOL/L (-2.5-2.5); ABG OXYGEN SATURATION 91 % (94-100); ABG PCO2 42 MMHG (35-45); ABG PH 7.41 (7.37-7.43); ABG PO2 61 MMHG (79-93); ABG TCO2 26.7 MMOL/L (21.0-31.0)
[2022-04-04 05:15] LABS: ALLENS TEST YES-POS; INSPIRED O2 30%; VENTILATOR YES
[2022-04-04 05:16] LABS: PATIENT TEMP 37.8
[2022-04-04] MEDS: NOREPINEPHRINE 8 MG/250 ML 250 ML IV SCH ×3 (05:27→20:03)
[2022-04-04 05:39] LABS: BASOPHILS % (AUTO) 0 % (0-10); EOSINOPHILS # (AUTO) 0.1 10^3/uL (0.0-0.3); EOSINOPHILS % (AUTO) 1 % (0-10); HEMATOCRIT 29 % (40-54); LYMPHOCYTES # (AUTO) 1.5 10^3/uL (1.0-4.0); LYMPHOCYTES % (AUTO) 14 % (12-44); MEAN CORPUSCULAR HEMOGLOBIN 33 pg (25-34); MEAN CORPUSCULAR HGB CONC 32 g/dL (32-36); MEAN CORPUSCULAR VOLUME 105 fL (80-99); MEAN PLATELET VOLUME 11.8 fL (9.0-12.2); MONOCYTES % (AUTO) 9 % (0-12); NEUTROPHILS # (AUTO) 8.2 10^3/uL (1.8-7.8); NEUTROPHILS % (AUTO) 75 % (42-75); PLATELET COUNT 222 10^3/uL (130-400); WHITE BLOOD COUNT 10.9 10^3/uL (4.3-11.0)
[2022-04-04] MEDS: inSUlin ASPART (NovoLOG) 1 UNIT/0.01 ML (CHARGE PER UNIT) SC SCH ×4 (05:55→23:29)
[2022-04-04] MEDS: DexMEDEtomidine 250 ML DRIP 250 ML IV SCH ×4 (06:27→23:08)
[2022-04-04] MEDS: PROPOFOL DRIP (ICU) 100 ML IV SCH ×7 (06:29→23:07)
[2022-04-04] MEDS: FLEET ENEMA ADULT 1 EA BTL PR SCH ×3 (06:32→21:00)
[2022-04-04 06:34] LABS: POTASSIUM 5.4 MMOL/L (3.6-5.0)
[2022-04-04 06:35] LABS: CALCIUM 7.7 MG/DL (8.5-10.1)
[2022-04-04 06:39] LABS: PHOSPHORUS 3.8 MG/DL (2.3-4.7)
[2022-04-04 06:40] LABS: CREATININE SERUM 1.15 MG/DL (0.60-1.30)
[2022-04-04 06:42] LABS: MAGNESIUM 2.7 MG/DL (1.6-2.4)
--- NOTE | 2022-04-04 06:44 | Occ Therapy Progress Note ---
Therapy Progress Note Pt currently intubated. OT to monitor pt's status then will initiate treatment when pt is medically stable and able to actively participate in skilled therapy. SHANA FERNANDEZ Apr 04, 2022 06:44
[2022-04-04 06:59] VITALS: BP 117/66
[2022-04-04] MEDS ORDERED: HYDROGEN PEROXIDE 118 ML SOLUTION TP SCH (07:00)
--- NOTE | 2022-04-04 07:59 | Physical Therapy Progress Note ---
Therapy Progress Note Patient is sedated and intubated per report. PT will monitor patient status and initiate treatment when patient is deemed medically stable and able to actively participate with skilled therapy. NILSA GONZALEZ PT Apr 04, 2022 07:59
[2022-04-04] MEDS ORDERED: inSUlin ASPART (NovoLOG) 1 UNIT/0.01 ML (CHARGE PER UNIT) SC NR (08:00)
--- NOTE | 2022-04-04 08:11 | Cardiology Progress Note ---
Subjective Date Seen by Provider: Apr 04, 2022 Time Seen by Provider: 08:11 Subjective/Events-last exam Patient is intubated and unresponsive. Review of Systems General: Other (Unable to provide review of system) Focused Exam Lactate Level 04/02/22 05:55: Lactic Acid Level 1.15 04/03/22 08:55: Lactic Acid Level 1.08 Objective-Cardiology Exam Last Set of Vital Signs Vital Signs 04/04/22 04/04/22 04/04/22 04/04/22 06:00 06:29 06:59 07:47 Temp 37.7 Pulse 94 Resp 29 B/P (MAP) 115/66 Pulse Ox 96 O2 Delivery Mechanical Ventilator O2 Flow Rate 30.00 FiO2 30 I&O Intake and Output 04/04/22 00:00 Intake Total 4480.587 ml Output Total 4160 ml Balance 320.587 ml IV Total 3405.587 ml Tube Feeding 865 ml Other 210 ml Output Urine Total 4160 ml # Bowel Movements 3 General: Other (Sedated and intubated) HEENT: Atraumatic Neck: Supple, No JVD Heart: Regular Rate Abdomen: Normal Bowel Sounds Extremities: No Clubbing, No Cyanosis Skin: No Rashes, No Breakdown Neuro: Other (Sedated and intubated) Psych/Mental Status: Other (Sedated and intubated) Results Lab Laboratory Tests 04/04/22 04:45 04/04/22 06:05 A/P-Cardiology Admission Diagnosis Ventilator dependent respiratory failure Type II myocardial infarction Coronary artery disease Congestive heart failure, acute on chronic left ventricular systolic dysfunction Assessment/Plan Ventilator dependent respiratory failure, failed to weaning this Status post tracheostomy on March 26, 2022, PEG tube placement March 26, 2022 Possible transfer to long-term facility Congestive heart failure, acute left ventricular systolic dysfunction, ejection fraction 35 to 40% Responding well to diuresis. Minimal troponin elevation, type II myocardial infarction secondary to hypoxemia. Coronary artery disease, history of stenting done in [facility] in November 2021. COPD with acute decompensation Chronic renal insufficiency, currently stable continue to monitor Diabetes mellitus, followed and managed by primary care physician Hyperlipidemia Morbid obesity. PORSHA LEAL MD Apr 04, 2022 08:11
[2022-04-04] MEDS: POTASSIUM CL 10MEQ/50ML IVPB 50 ML IV SCH (08:25)
[2022-04-04] MEDS: MAGNESIUM 1 GM/100 ML IVPB 100 ML IV SCH (08:26)
[2022-04-04] MEDS: KCL 20 MEQ TAB (K-DUR) PO SCH (08:26)
[2022-04-04] MEDS: CLOPIDOGREL 75 MG (PLAVIX) TABLET PO SCH (08:27)
[2022-04-04] MEDS: PANTOPRAZOLE 40 MG (PROTONIX) VIAL IV SCH (08:27)
[2022-04-04] MEDS: AZITHROMYCIN 100 MG/5 ML (ZITHROMAX) 15ML BTL GT SCH ×2 (08:27→20:00)
[2022-04-04] MEDS: ASPIRIN 81 MG CHEW (CHILDREN'S ASA) PO SCH (08:27)
[2022-04-04] MEDS: cloNIDine 0.1 MG (CATAPRES) TAB PO SCH ×3 (08:28→20:01)
[2022-04-04] MEDS: LACTULOSE SYRUP 10GM/15ML (ENULOSE) 30ML UDC PEG SCH ×2 (08:29→20:01)
[2022-04-04] MEDS: LACRI-LUBE OPTHALMIC OINT 3.5 GM TUBE OU SCH ×3 (08:29→20:02)
[2022-04-04] MEDS: FUROSEMIDE 40 MG/4 ML INJ (LASIX) IVP SCH ×2 (08:29→18:39)
[2022-04-04] MEDS: meTOprolol TARTRATE 25 MG (LOPRESSOR) TABLET PEG SCH ×2 (08:29→20:02)
[2022-04-04] MEDS: SPIRONOLACTONE 25 MG (ALDACTONE) TAB PO SCH (08:29)
[2022-04-04] MEDS: lisINopril 20 MG (PRINIVIL) TABLET PO SCH (08:29)
[2022-04-04] MEDS ORDERED: inSUlin ASPART (NovoLOG) 1 UNIT/0.01 ML (CHARGE PER UNIT) SC SCH (08:30)
[2022-04-04] MEDS: 1/2 NS IV SOLUTION 1,000 ML IV SCH (08:30)
[2022-04-04 09:36] VITALS: BP 115/60
--- NOTE | 2022-04-04 10:04 | Tele-ICU Progress Note ---
Subjective Date Seen by a Provider: Apr 04, 2022 Time Seen by a Provider: 10:04 Subjective/Events-last exam (Tele-ICU Physician , Progress Note ) Service provided via interactive audio and video telecommunications E-CARE system to a patient admitted to ICU bed in [facility]. Available chart/ vitals / labs / Images reviewed Video assessment done using teleICU camera, rest of exam as per RN Discussed with RN Events overnight : issues with returned volumes on vent - VENT CHANGED - doing well FEBRILE hemodynamically stable Respiratory - I/O = ois 4 L VENT SETTINGS and ABG reviewed Sedation: RASS discussed with RN , - IV Fentany @ 50 and Propofol @ 210 , TG's 137, also on IV Precedex @ 1.0 NOT CANDIDATE for SBTreviewed possible contraindications including Cardiovascular Stability /Sedation Score / FI02/PEEP / ABG / CXR/ secretions Drips: tpn Pressors- no Consultants: Hospital course: (03/12) 61M Admitted for COPD/CHF, bronchitis. Hypercapenic. ?NSTEMI. INTUBATED in ICU (03/17) EXTUBATED AND REINTUBATED. Worsening pulmonary edema. (03/21) Needs KUB. Cannot do d/t weight. Surgery consulted. (03/22) EXTUBATED AND THEN REINTUBATED. Hypertensive (03/24) Large ngt output, tf on hold. 03/26-AC 26/Vt 500/FiO2 55%/ (03/26) s/p tracheostomy and PEG, TPN started 04/02- issues with returned volumes on vent - VENT CHANGED - doing well 04/03- STARTING vanco and Zosyn , CT abd -No significant abnormality in the abdomen or pelvis is identified. A/P Acute resp failure - s/p ETT 03/12 , has been extubated x 2, reintubated on 03/22, TRACH 03/26 04/02- issues with returned volumes on vent - VENT CHANGED - doing well now -AC 16 , Vt 600, Peak Paw in 20s 40 % PEEP 8 - secretions moderate - cont nebs Delirium - CONT FENTANYL PATCH AND ATIVAN PRN -on propofol 10 , fent 23, precedex 1.0- trying to wean off - can follow minimal commands HTN severe 12.19 - cardene gtt and lasix - both stopped now Suspected sepsis , -Hypotension .20 - ? volume shift after agressive diureis - responded to albumin , -sepsis w/up sent 04/02 while OFF ABX ( z max dose for GI motility ) 04/03-STARTING vanco and Zosyn, CT abd done 04/03 cx from post x2 - Coag + staph - to repeat peripheral cx and consider to change osman Ac systolic CHF. CAD - echo on 03/12/22: LVEF 35-40%, mod diffuse hypokinesis of LV - as per cards RESUME LASIX COPD suspercted - acute on chronic exacerbation - not on steroid , cont nebs Anemia 03/26 - Hb drop 3 g - follow , no acute bleeding - stable HB last 3 days Hypernatremia - with diuresis , IVF stopped - adjust NA in TPN GAEL at presentation - - follow closely , better DM - ISS to adjust s/pPEG 03/26 -04/03-eveloped mild brownish drainage per PEG exit site. 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 which is contained and no intraperitoneal leakage per recent CT scan- as per SX TF have been on hold due to large NG output and plans for PEG - CONT TPN - TF and advance as tolerated - @ 30cc/h - TF STOPPED 04/03 , hold reglan and Z-max 100 - If advanced - will start to cut down TPN Lines : triple PICC - placed -04/03 cx from post x2 - Coag + staph - to repeat peripheral cx and consider to change osman , (Central Line Necessity Reviewed) Jenkins: + OG: Nutrition: TPN and TF Analgesia: Anxiety/ delirium VTE Prophylaxis: viktoria 40 Stress Ulcer Prophylaxis: PPI Plans in collaboration with bedside consultants and IM MDs. discussed with Dr Walker Discussed with RN to reach out if any questions or concerns A total of 33 minutes of critical care time was devoted to this patient today, required to treat and/or prevent further deterioration of critical care condition ( as above ) . Sepsis Event Evaluation Height, Weight, BMI Height: '" Weight: lbs. oz. kg; 45.46 BMI Method: Focused Exam Lactate Level 04/02/22 05:55: Lactic Acid Level 1.15 04/03/22 08:55: Lactic Acid Level 1.08 Exam Exam Patient acknowledged, consented, and participated in this virtual visit which was conducted using real time audio/video Vital Signs Date Time Temp Pulse Resp B/P (MAP) Pulse Ox O2 Delivery O2 Flow Rate FiO2 04/04/22 09:36 90 30 96 30 04/04/22 09:00 93 30 143/76 (98) 98 Mechanical Ventilator 30.00 04/04/22 08:00 96 12 126/71 (89) 97 Mechanical Ventilator 30.00 04/04/22 07:47 37.7 04/04/22 07:00 96 15 115/66 (82) 94 Mechanical Ventilator 30.00 04/04/22 07:00 95 04/04/22 06:59 94 29 96 30 04/04/22 06:29 95 115/66 04/04/22 06:27 95 115/66 04/04/22 06:13 37.9 04/04/22 06:09 37.9 04/04/22 06:00 95 26 115/66 (82) 95 Mechanical Ventilator 30.00 04/04/22 05:07 38.0 04/04/22 05:00 98 16 124/71 (88) 96 Mechanical Ventilator 30.00 04/04/22 04:00 30 04/04/22 04:00 97 Mechanical Ventilator 30 04/04/22 04:00 100 152/78 04/04/22 04:00 100 152/78 04/04/22 04:00 99 33 130/70 (90) 94 Mechanical Ventilator 30.00 04/04/22 03:35 100 26 97 30 04/04/22 03:34 37.8 04/04/22 03:00 97 37 134/73 (93) 95 Mechanical Ventilator 30.00 04/04/22 02:00 97 37 122/71 (88) 96 Mechanical Ventilator 30.00 04/04/22 01:07 99 04/04/22 01:00 101 24 119/71 (87) 100 Mechanical Ventilator 30.00 04/04/22 00:00 98 Mechanical Ventilator 30 04/04/22 00:00 108 19 124/70 (88) 98 Mechanical Ventilator 30.00 04/04/22 00:00 30 04/03/22 23:41 36.9 04/03/22 23:00 103 27 124/70 (88) 98 Mechanical Ventilator 30.00 04/03/22 22:46 105 27 94 30 04/03/22 22:00 98 41 146/80 (102) 97 Mechanical Ventilator 30.00 04/03/22 22:00 105 146/88 12/21/22 21:20 105 146/88 04/03/22 21:00 105 23 131/76 (94) 96 Mechanical Ventilator 30.00 04/03/22 20:00 37.1 04/03/22 20:00 30 04/03/22 20:00 98 Mechanical Ventilator 30 04/03/22 20:00 108 20 131/79 (96) 95 Mechanical Ventilator 30.00 04/03/22 19:34 115 04/03/22 19:00 116 7 139/77 (97) 96 Mechanical Ventilator 30.00 04/03/22 18:47 110 25 96 30 04/03/22 18:00 110 41 171/78 (109) 94 Mechanical Ventilator 30.00 04/03/22 17:57 111 136/73 04/03/22 17:00 112 15 141/80 (100) 96 Mechanical Ventilator 30.00 04/03/22 16:00 37.3 04/03/22 16:00 99 Mechanical Ventilator 30 04/03/22 16:00 111 22 142/76 (98) 94 Mechanical Ventilator 30.00 04/03/22 15:34 30 04/03/22 15:12 117 29 96 30 04/03/22 15:00 117 29 153/71 (98) 97 Mechanical Ventilator 30.00 04/03/22 14:00 111 34 179/93 (121) 96 Mechanical Ventilator 30.00 04/03/22 13:30 102 04/03/22 13:00 110 37 158/87 (110) 93 Mechanical Ventilator 30.00 04/03/22 12:00 99 Mechanical Ventilator 30 04/03/22 12:00 30 04/03/22 12:00 128 34 160/95 (116) 96 Mechanical Ventilator 30.00 04/03/22 12:00 38.1 04/03/22 11:00 109 43 154/95 (114) 100 Mechanical Ventilator 30.00 04/03/22 10:42 109 27 99 30 I & O 04/04/22 07:00 Intake Total 3835.587 ml Output Total 4400 ml Balance -564.413 ml Height & Weight Height: '" Weight: lbs. oz. kg; 45.46 BMI Method: General Appearance: No Apparent Distress HEENT: TMs Normal Neck: Full Range of Motion Respiratory: Decreased Breath Sounds, Rhonci Cardiovascular: Regular Rate, Rhythm Capillary Refill: Less Than 3 Seconds Peripheral Pulses: 2+ Dorsalis Pedis (R), 2+ Left Dors-Pedis (L) Gastrointestinal: soft, tenderness, other (brownish drainage per peg site, no rednes/erythema) Extremity: Normal Capillary Refill Neurologic/Psychiatric: Alert, Oriented x3 Skin: Normal Color Lymphatic: No Adenopathy Results Lab Laboratory Tests 04/03/22 04:50 04/04/22 04:45 04/04/22 06:05 Assessment/Plan Assessment/Plan 1 MILAGROS HUBER MD Apr 04, 2022 10:04
[2022-04-04] MEDS: VANCOMYCIN 1500 MG/NS 500 ML IVPB IV SCH ×4 (10:48→22:22)
[2022-04-04] MEDS: ENOXAPARIN 40 MG/0.4 ML (LOVENOX) SYR SQ SCH ×2 (10:48→23:29)
[2022-04-04] MEDS: SODIUM ACETATE IV SCH ×20 (10:50→18:48)
[2022-04-04] MEDS: POTASSIUM CHLORIDE IV SCH ×20 (10:50→18:48)
[2022-04-04] MEDS: [UNRECOGNIZED DRUG - OTHER] IV SCH ×20 (10:50→18:48)
--- NOTE | 2022-04-04 11:36 | Progress Note - Hospitalist ---
Subjective HPI/CC On Admission Date Seen by Provider: Apr 04, 2022 Time Seen by Provider: 09:05 Patient is a 61-year-old -Russian male with past medical history of coronary artery disease, hypertension, hyperlipidemia,, COPD who presented to the emergency department due to hypoxia and chest pain. He was seen at the walk-in clinic at [facility] and complained of chest pain to them and he was referred to the emergency department. He has been seen in the ER multiple times in the past week or so but has declined most work-up at those visits. This visit he did allow for labs and x-ray which revealed an NSTEMI. He was admitted for further management. Unfortunately overnight his respiratory status worsened and he required intubation. He is unable to provide me any history due to this and thus all history was obtained from the records. Subjective/Events-last exam He remains sedated and mechanically ventilated. Focused Exam Lactate Level 04/02/22 05:55: Lactic Acid Level 1.15 04/03/22 08:55: Lactic Acid Level 1.08 Objective Exam Vital Signs Vital Signs Date Time Temp Pulse Resp B/P (MAP) Pulse Ox O2 Delivery O2 Flow Rate FiO2 04/04/22 11:00 89 29 103/68 (80) 96 Mechanical Ventilator 30.00 04/04/22 09:36 30 04/04/22 07:47 37.7 Capillary Refill : Less Than 3 Seconds General Appearance: No Apparent Distress, Obese Neck: Other (tracheostomy) Respiratory: No Respiratory Distress, Decreased Breath Sounds Cardiovascular: Regular Rate, Rhythm, No Murmur Gastrointestinal: Normal Bowel Sounds, Soft, Other (PEG) Extremity: Normal Inspection, Pedal Edema Neurologic/Psychiatric: Other (sedated, opens eyes, not able to follow commands) Skin: Normal Color, Warm/Dry Results/Procedures Lab Laboratory Tests 04/04/22 04:45 04/04/22 06:05 Patient resulted labs reviewed. Imaging: Reviewed Imaging Report Assessment/Plan Assessment and Plan Assess & Plan/Chief Complaint Acute hypercapnic and hypoxic respiratory failure COPD exacerbation with lower respiratory tract infection Acute HFrEF Trach/PEG 03/[address] Jessica Linder following Continue tube feeds PT/OT Wean sedation as able Social work assisting with discharge planning Sepsis Positive blood cultures Fever, leukocytosis, tachycardia Blood cultures positive for coag negative staph, Enterococcus Continue Vanc and Zosyn May need PICC line removed HTN Continue antihypertensives NSTEMI CAD HLD Likely Type II Cardiology following ASA and Plavix Echo with EF of 35% DMII Sliding Scale Insulin DVT prophylaxis: Lovenox Ileus, resolved Critical Care Critically Ill Patient Diagnosis/Problems Diagnosis/Problems (1) Acute respiratory failure Status: Acute Qualifiers: Respiratory failure complication: hypoxia and hypercapnia Qualified Codes: J96.01 - Acute respiratory failure with hypoxia; J96.02 - Acute respiratory failure with hypercapnia (2) Acute HFrEF (heart failure with reduced ejection fraction) Status: Acute (3) NSTEMI (non-ST elevation myocardial infarction) Status: Acute (4) PNA (pneumonia) Status: Resolved Resolution Date/Time: 03/18/22 @ 18:15 (5) Morbid obesity Status: Chronic (6) COPD (chronic obstructive pulmonary disease) Status: Acute Qualifiers: COPD type: COPD with acute lower respiratory infection Qualified Codes: J44.0 - Chronic obstructive pulmonary disease with (acute) lower respiratory infection (7) Tracheostomy in place Status: Acute (8) Failure to liberate from mechanical ventilation Status: Acute (9) PEG (percutaneous endoscopic gastrostomy) status Status: Acute (10) Ileus Status: Acute MIRACLE MOLINA MD Apr 04, 2022 11:36
--- NOTE | 2022-04-04 14:42 | Progress Note ---
Subjective Date Seen by a Provider: Apr 04, 2022 Time Seen by a Provider: 14:00 Subjective/Events-last exam remains on vent/sedated and critically ill. 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 Focused Exam Lactate Level 04/02/22 05:55: Lactic Acid Level 1.15 04/03/22 08:55: Lactic Acid Level 1.08 Objective Exam Vital Signs Date Time Temp Pulse Resp B/P (MAP) Pulse Ox O2 Delivery O2 Flow Rate FiO2 04/04/22 13:01 82 136/73 04/04/22 13:00 90 04/04/22 12:56 96 Mechanical Ventilator 30 04/04/22 12:55 30 04/04/22 12:00 83 20 118/66 (83) 95 Mechanical Ventilator 30.00 04/04/22 11:44 36.8 04/04/22 11:00 89 29 103/68 (80) 96 Mechanical Ventilator 30.00 04/04/22 10:49 92 118/63 04/04/22 10:00 90 25 114/63 (80) 97 Mechanical Ventilator 30.00 04/04/22 09:36 90 30 96 30 04/04/22 09:00 93 30 143/76 (98) 98 Mechanical Ventilator 30.00 04/04/22 08:00 96 12 126/71 (89) 97 Mechanical Ventilator 30.00 04/04/22 07:50 97 Mechanical Ventilator 30 04/04/22 07:50 30 04/04/22 07:47 37.7 04/04/22 07:00 96 15 115/66 (82) 94 Mechanical Ventilator 30.00 04/04/22 07:00 95 04/04/22 06:59 94 29 96 30 04/04/22 06:29 95 115/66 04/04/22 06:27 95 115/66 04/04/22 06:13 37.9 04/04/22 06:09 37.9 04/04/22 06:00 95 26 115/66 (82) 95 Mechanical Ventilator 30.00 04/04/22 05:07 38.0 04/04/22 05:00 98 16 124/71 (88) 96 Mechanical Ventilator 30.00 04/04/22 04:00 30 04/04/22 04:00 97 Mechanical Ventilator 30 04/04/22 04:00 100 152/78 04/04/22 04:00 100 152/78 04/04/22 04:00 99 33 130/70 (90) 94 Mechanical Ventilator 30.00 04/04/22 03:35 100 26 97 30 04/04/22 03:34 37.8 04/04/22 03:00 97 37 134/73 (93) 95 Mechanical Ventilator 30.00 04/04/22 02:00 97 37 122/71 (88) 96 Mechanical Ventilator 30.00 04/04/22 01:07 99 04/04/22 01:00 101 24 119/71 (87) 100 Mechanical Ventilator 30.00 04/04/22 00:00 98 Mechanical Ventilator 30 04/04/22 00:00 108 19 124/70 (88) 98 Mechanical Ventilator 30.00 04/04/22 00:00 30 04/03/22 23:41 36.9 04/03/22 23:00 103 27 124/70 (88) 98 Mechanical Ventilator 30.00 04/03/22 22:46 105 27 94 30 04/03/22 22:00 98 41 146/80 (102) 97 Mechanical Ventilator 30.00 04/03/22 22:00 105 146/88 04/03/22 21:20 105 146/88 04/03/22 21:00 105 23 131/76 (94) 96 Mechanical Ventilator 30.00 04/03/22 20:00 37.1 04/03/22 20:00 30 04/03/22 20:00 98 Mechanical Ventilator 30 04/03/22 20:00 108 20 131/79 (96) 95 Mechanical Ventilator 30.00 04/03/22 19:34 115 04/03/22 19:00 116 7 139/77 (97) 96 Mechanical Ventilator 30.00 04/03/22 18:47 110 25 96 30 04/03/22 18:00 110 41 171/78 (109) 94 Mechanical Ventilator 30.00 04/03/22 17:57 111 136/73 04/03/22 17:00 112 15 141/80 (100) 96 Mechanical Ventilator 30.00 04/03/22 16:00 37.3 04/03/22 16:00 99 Mechanical Ventilator 30 04/03/22 16:00 111 22 142/76 (98) 94 Mechanical Ventilator 30.00 04/03/22 15:34 30 04/03/22 15:12 117 29 96 30 04/03/22 15:00 117 29 153/71 (98) 97 Mechanical Ventilator 30.00 I & O 04/04/22 07:00 Intake Total 3835.587 ml Output Total 4400 ml Balance -564.413 ml Capillary Refill : Less Than 3 Seconds General Appearance: No Apparent Distress HEENT: PERRL/EOMI Neck: Full Range of Motion Respiratory: Chest Non Tender, Decreased Breath Sounds, Rhonci Cardiovascular: Regular Rate, Rhythm Gastrointestinal: normal bowel sounds, non tender, soft Extremity: Normal Capillary Refill Neurologic/Psychiatric: Other (on vent/sedated) Skin: Normal Color, Warm/Dry Lymphatic: No Adenopathy Results Lab Laboratory Tests 04/03/22 18:11: Glucometer 297H 04/03/22 23:16: Glucometer 316H 04/04/22 04:45: White Blood Count 10.9, Red Blood Count 2.72L, Hemoglobin 9.0L, Hematocrit 29L, Mean Corpuscular Volume 105H, Mean Corpuscular Hemoglobin 33, Mean Corpuscular Hemoglobin Concent 32, Red Cell Distribution Width 15.3H, Platelet Count 222, Mean Platelet Volume 11.8, Immature Granulocyte % (Auto) 1, Neutrophils (%) (Auto) 75, Lymphocytes (%) (Auto) 14, Monocytes (%) (Auto) 9, Eosinophils (%) (Auto) 1, Basophils (%) (Auto) 0, Neutrophils # (Auto) 8.2H, Lymphocytes # (Auto) 1.5, Monocytes # (Auto) 1.0, Eosinophils # (Auto) 0.1, Basophils # (Auto) 0.0, Immature Granulocyte # (Auto) 0.1 04/04/22 04:50: Blood Gas Puncture Site RRAD, Blood Gas Patient Temperature 37.8, Arterial Blood pH 7.41, Arterial Blood Partial Pressure CO2 42, Arterial Blood Partial Pressure O2 61L, Arterial Blood HCO3 26, Arterial Blood Total CO2 26.7, Arterial Blood Oxygen Saturation 91L, Arterial Blood Base Excess 1.4, Johnathon Test YES-POS, Blood Gas Ventilator Setting YES, Blood Gas Inspired Oxygen 30% 04/04/22 06:05: Sodium Level 144, Potassium Level 5.4H, Chloride Level 111H, Carbon Dioxide Level 21, Anion Gap 12, Blood Urea Nitrogen 47H, Creatinine 1.15, Estimat Glomerular Filtration Rate 72, BUN/Creatinine Ratio 41, Glucose Level 458*H, Calcium Level 7.7L, Phosphorus Level 3.8, Magnesium Level 2.7H 04/04/22 11:21: Glucometer 300H Microbiology 04/03/22 Blood Culture - Preliminary, Resulted Probable Enterococcus Species 04/03/22 Catheter Tip Culture - Preliminary, Resulted 04/02/22 Urine Culture - Final, Complete NO GROWTH 03/13/22 MRSA Screen - Final, Complete MRSA not isolated Assessment/Plan Assessment/Plan Assess & Plan/Chief Complaint on vent sedated with NSTEMI and respiratory failure with ileus s/p tracheostomy and PEG placement filed multiple extubation attempts and now intubated for 2 weeks. recommend drain sponge gauze daily and PRN to trach and PEG site. has developed mild brownish drainage per PEG exit site. 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 our recommendation is to allow the tract to mature. later if he doesn't need the g-tube, treatment would be to remove the PEG tube and allow both the gastrocutaneous and colocutaneous fistulas to close on own over time. patient is not a stable candidate for any major surgery/laparotomy. cont abx due to +blood culture. ANALIA SALAZAR MD Apr 04, 2022 14:42
[2022-04-04 15:05] VITALS: BP 130/74
[2022-04-04 19:25] VITALS: BP 145/77
[2022-04-04] MEDS: NS IV 1000 ML 1,000 ML IV SCH (22:29)
[2022-04-04 23:44] VITALS: BP 145/77
[2022-04-05] MEDS: PIPERACILLIN SODIUM/TAZOBACTAM 4.5 GM in NS (IVPB) 100 ML IV SCH ×3 (00:37→17:30)
[2022-04-05 02:28] VITALS: BP 134/76
[2022-04-05] MEDS: RT-ALBUTEROL/IPRATROPIUM 3 ML (DUONEB) VIAL INH SCH ×6 (02:28→22:03)
[2022-04-05] MEDS: DexMEDEtomidine 250 ML DRIP 250 ML IV SCH ×2 (03:25→09:15)
[2022-04-05 03:37] LABS: BASOPHILS % (AUTO) 0 % (0-10); EOSINOPHILS # (AUTO) 0.2 10^3/uL (0.0-0.3); EOSINOPHILS % (AUTO) 3 % (0-10); HEMATOCRIT 26 % (40-54); HEMOGLOBIN 8.8 g/dL (13.3-17.7); LYMPHOCYTES # (AUTO) 1.4 10^3/uL (1.0-4.0); LYMPHOCYTES % (AUTO) 16 % (12-44); MEAN CORPUSCULAR HEMOGLOBIN 33 pg (25-34); MEAN CORPUSCULAR HGB CONC 34 g/dL (32-36); MEAN CORPUSCULAR VOLUME 99 fL (80-99); MONOCYTES # (AUTO) 0.8 10^3/uL (0.0-1.0); MONOCYTES % (AUTO) 8 % (0-12); NEUTROPHILS # (AUTO) 6.4 10^3/uL (1.8-7.8); NEUTROPHILS % (AUTO) 72 % (42-75); PLATELET COUNT 242 10^3/uL (130-400); WHITE BLOOD COUNT 8.9 10^3/uL (4.3-11.0)
[2022-04-05 03:56] LABS: POTASSIUM 3.6 MMOL/L (3.6-5.0)
[2022-04-05 03:58] LABS: CALCIUM 6.5 MG/DL (8.5-10.1)
[2022-04-05 04:02] LABS: CREATININE SERUM 0.98 MG/DL (0.60-1.30); PHOSPHORUS 2.5 MG/DL (2.3-4.7)
[2022-04-05 04:05] LABS: MAGNESIUM 2.1 MG/DL (1.6-2.4)
[2022-04-05] MEDS: PROPOFOL DRIP (ICU) 100 ML IV SCH ×3 (04:36→17:30)
[2022-04-05] MEDS: NOREPINEPHRINE 8 MG/250 ML 250 ML IV SCH ×3 (04:37→21:11)
[2022-04-05] MEDS: fentaNYL DRIP PRE-MIX 250 ML IV SCH ×2 (04:37→05:52)
[2022-04-05] MEDS: MAGNESIUM 1 GM/100 ML IVPB 100 ML IV SCH (05:39)
[2022-04-05] MEDS: POTASSIUM CL 10MEQ/50ML IVPB 50 ML IV SCH ×3 (05:39→06:00)
[2022-04-05] MEDS: FLEET ENEMA ADULT 1 EA BTL PR SCH (05:39)
[2022-04-05] MEDS: KCL 20 MEQ TAB (K-DUR) PO SCH (05:39)
[2022-04-05] MEDS: FUROSEMIDE 40 MG/4 ML INJ (LASIX) IVP SCH ×2 (06:00→17:29)
[2022-04-05] MEDS: inSUlin ASPART (NovoLOG) 1 UNIT/0.01 ML (CHARGE PER UNIT) SC SCH ×7 (06:01→23:34)
[2022-04-05] MEDS: METOCLOPRAMIDE INJ 10 MG/2 ML (REGLAN) IVP SCH ×4 (06:01→23:25)
[2022-04-05 06:46] VITALS: BP 118/64
--- NOTE | 2022-04-05 06:48 | Occ Therapy Progress Note ---
Therapy Progress Note Per notes, pt to be discharged to LTC. OT to dismiss pt at this time. Pt will need new orders. SHANA FERNANDEZ Apr 05, 2022 06:47
[2022-04-05] MEDS: niCARdipine IV (Pyxis drip kit 50 MG in NS (IVPB) 230 ML IV SCH ×2 (07:43→17:03)
[2022-04-05] MEDS: PANTOPRAZOLE 40 MG (PROTONIX) VIAL IV SCH (07:45)
[2022-04-05] MEDS: LACTULOSE SYRUP 10GM/15ML (ENULOSE) 30ML UDC PEG SCH (07:45)
[2022-04-05] MEDS: meTOprolol TARTRATE 25 MG (LOPRESSOR) TABLET PEG SCH ×2 (07:45→21:11)
[2022-04-05] MEDS: LACRI-LUBE OPTHALMIC OINT 3.5 GM TUBE OU SCH ×3 (07:45→21:10)
[2022-04-05] MEDS: SPIRONOLACTONE 25 MG (ALDACTONE) TAB PO SCH (07:46)
[2022-04-05] MEDS: cloNIDine 0.1 MG (CATAPRES) TAB PO SCH ×3 (07:46→21:11)
[2022-04-05] MEDS: AZITHROMYCIN 100 MG/5 ML (ZITHROMAX) 15ML BTL GT SCH ×2 (07:46→21:09)
[2022-04-05] MEDS: CLOPIDOGREL 75 MG (PLAVIX) TABLET PO SCH (07:46)
[2022-04-05] MEDS: ASPIRIN 81 MG CHEW (CHILDREN'S ASA) PO SCH (07:46)
[2022-04-05] MEDS: lisINopril 20 MG (PRINIVIL) TABLET PO SCH (07:46)
--- NOTE | 2022-04-05 07:58 | Physical Therapy Progress Note ---
Therapy Progress Note Patient is sedated and intubated per report. PT will monitor patient status and initiate treatment when patient is deemed medically stable and able to actively participate with skilled therapy. NILSA GONZALEZ PT Apr 05, 2022 07:58
[2022-04-05] MEDS ORDERED: TROUGH ORDER-PHARMACY XX ONE (09:00)
[2022-04-05 09:44] VITALS: BP 128/65
--- NOTE | 2022-04-05 10:23 | Cardiology Progress Note ---
Subjective Date Seen by Provider: Apr 05, 2022 Time Seen by Provider: 10:22 Subjective/Events-last exam Patient was seen at bedside, ventilator dependent, unresponsive Review of Systems General: Other (Unable to provide review of system) Focused Exam Lactate Level 04/03/22 08:55: Lactic Acid Level 1.08 Objective-Cardiology Exam Last Set of Vital Signs Vital Signs 04/05/22 04/05/22 04/05/22 07:46 09:44 10:00 Temp 37.9 Pulse 101 Resp 30 B/P (MAP) 122/68 (86) Pulse Ox 93 O2 Delivery Mechanical Ventilator O2 Flow Rate 21.00 FiO2 21 I&O Intake and Output 04/05/22 00:00 Intake Total 3315 ml Output Total 4150 ml Balance -835 ml IV Total 1615 ml Tube Feeding 850 ml Other 850 ml Output Urine Total 4150 ml General: Other (Sedated and intubated) HEENT: Atraumatic Neck: Supple, No JVD Heart: Regular Rate Abdomen: Normal Bowel Sounds Extremities: No Clubbing, No Cyanosis Skin: No Rashes, No Breakdown Neuro: Other (Sedated and intubated) Psych/Mental Status: Other (Sedated and intubated) Results Lab Laboratory Tests 04/05/22 03:13 A/P-Cardiology Admission Diagnosis Ventilator dependent respiratory failure Type II myocardial infarction Coronary artery disease Congestive heart failure, acute on chronic left ventricular systolic dysfunction Assessment/Plan Ventilator dependent respiratory failure, failed multiple attempt for weaning Status post tracheostomy on March 26, 2022, PEG tube placement March 26, 2022 Possible transfer to long-term facility Congestive heart failure, acute left ventricular systolic dysfunction, ejection fraction 35 to 40% Responding well to diuresis. Minimal troponin elevation, type II myocardial infarction secondary to hypoxemia. Coronary artery disease, history of stenting done in [facility] in November 2021. COPD with acute decompensation Chronic renal insufficiency, currently stable continue to monitor Diabetes mellitus, followed and managed by primary care physician Hyperlipidemia Morbid obesity. PORSHA LEAL MD Apr 05, 2022 10:23
--- NOTE | 2022-04-05 10:39 | Progress Note - Hospitalist ---
Subjective HPI/CC On Admission Date Seen by Provider: Apr 05, 2022 Time Seen by Provider: 08:50 Patient is a 61-year-old -Stateless male with past medical history of coronary artery disease, hypertension, hyperlipidemia,, COPD who presented to the emergency department due to hypoxia and chest pain. He was seen at the walk-in clinic at formerly [facility] and complained of chest pain to them and he was referred to the emergency department. He has been seen in the ER multiple times in the past week or so but has declined most work-up at those visits. This visit he did allow for labs and x-ray which revealed an NSTEMI. He was admitted for further management. Unfortunately overnight his respiratory status worsened and he required intubation. He is unable to provide me any history due to this and thus all history was obtained from the records. Subjective/Events-last exam He remains sedated and mechanically ventilated. He opens his eyes but is unable to follow commands. Focused Exam Lactate Level 04/03/22 08:55: Lactic Acid Level 1.08 Objective Exam Vital Signs Vital Signs Date Time Temp Pulse Resp B/P (MAP) Pulse Ox O2 Delivery O2 Flow Rate FiO2 04/05/22 10:00 101 30 122/68 (86) 93 Mechanical Ventilator 21.00 04/05/22 09:44 21 04/05/22 07:46 37.9 Capillary Refill : Less Than 3 Seconds General Appearance: No Apparent Distress, Obese Respiratory: Lungs Clear, No Respiratory Distress, Other (tracheostomy with mechanical ventilation) Cardiovascular: No Murmur, Tachycardia Gastrointestinal: Normal Bowel Sounds, Soft, Other (PEG with brown discharge around gauze) Extremity: Normal Inspection, Pedal Edema Neurologic/Psychiatric: Other (sedated) Skin: Normal Color, Warm/Dry Results/Procedures Lab Laboratory Tests 04/05/22 03:13 Patient resulted labs reviewed. Imaging: Reviewed Imaging Report Assessment/Plan Assessment and Plan Assess & Plan/Chief Complaint Acute hypercapnic and hypoxic respiratory failure COPD exacerbation with lower respiratory tract infection Acute HFrEF Trach/PEG 03/[address] Jessica Linder following Continue tube feeds PT/OT Wean sedation as able Social work assisting with discharge planning Sepsis Positive blood cultures Blood cultures positive for coag negative staph, Enterococcus Continue Vanc and Zosyn PICC removed, replaced Repeat cultures pending T2DM with hyperglycemia Levemir Add scheduled Novolog Sliding scale insulin Hypernatremia Increased free water boluses HTN Continue antihypertensives NSTEMI CAD HLD Likely Type II Cardiology following ASA and Plavix Echo with EF of 35% DVT prophylaxis: Lovenox Ileus, resolved Critical Care Critically Ill Patient Diagnosis/Problems Diagnosis/Problems (1) Acute respiratory failure Status: Acute Qualifiers: Respiratory failure complication: hypoxia and hypercapnia Qualified Codes: J96.01 - Acute respiratory failure with hypoxia; J96.02 - Acute respiratory failure with hypercapnia (2) Acute HFrEF (heart failure with reduced ejection fraction) Status: Acute (3) NSTEMI (non-ST elevation myocardial infarction) Status: Acute (4) PNA (pneumonia) Status: Resolved Resolution Date/Time: 03/18/22 @ 18:15 (5) Morbid obesity Status: Chronic (6) COPD (chronic obstructive pulmonary disease) Status: Acute Qualifiers: COPD type: COPD with acute lower respiratory infection Qualified Codes: J44.0 - Chronic obstructive pulmonary disease with (acute) lower respiratory infection (7) Tracheostomy in place Status: Acute (8) Failure to liberate from mechanical ventilation Status: Acute (9) PEG (percutaneous endoscopic gastrostomy) status Status: Acute (10) Ileus Status: Resolved Resolution Date/Time: 04/05/22 @ 10:38 (11) Hypernatremia Status: Acute (12) T2DM (type 2 diabetes mellitus) Status: Acute Qualifiers: Diabetes mellitus detention insulin use: without detention use Diabetes mellitus complication status: with hyperglycemia Qualified Codes: E11.65 - Type 2 diabetes mellitus with hyperglycemia MIRACLE MOLINA MD Apr 05, 2022 10:39
[2022-04-05] MEDS: ENOXAPARIN 40 MG/0.4 ML (LOVENOX) SYR SQ SCH ×2 (10:42→23:25)
[2022-04-05] MEDS: ACETAMINOPHEN 325 MG TABLET PO PRN ×2 (10:42→21:25)
[2022-04-05] MEDS: 1/2 NS IV SOLUTION 1,000 ML IV SCH (10:57)
[2022-04-05] MEDS: VANCOMYCIN 1500 MG/NS 500 ML IVPB IV SCH ×4 (10:58→21:11)
--- NOTE | 2022-04-05 12:05 | Progress Note ---
Subjective Date Seen by a Provider: Apr 05, 2022 Time Seen by a Provider: 11:00 Subjective/Events-last exam patient stable. remains critically ill. tracheostomy intact however tenous upon movement due to body habitus. recommend no significant flexion or extension. colocutaneous fistula stable. will decrease laxatives to slightly solidify stools and hopefully decrease output. Focused Exam Lactate Level 04/03/22 08:55: Lactic Acid Level 1.08 Objective Exam Vital Signs Date Time Temp Pulse Resp B/P (MAP) Pulse Ox O2 Delivery O2 Flow Rate FiO2 04/05/22 11:00 112 16 149/76 (100) 98 Mechanical Ventilator 30.00 04/05/22 10:50 Mechanical Ventilator 30.00 04/05/22 10:42 38.2 04/05/22 10:00 101 30 122/68 (86) 93 Mechanical Ventilator 21.00 04/05/22 09:44 98 24 95 21 04/05/22 09:15 98 145/73 04/05/22 09:00 96 26 149/73 (98) 94 Mechanical Ventilator 21.00 04/05/22 08:00 103 22 134/86 (102) 94 Mechanical Ventilator 21.00 04/05/22 07:46 37.9 04/05/22 07:43 104 129/66 04/05/22 07:40 95 Mechanical Ventilator 30 04/05/22 07:40 30 04/05/22 07:00 97 22 129/70 (89) 94 Mechanical Ventilator 21.00 04/05/22 07:00 104 04/05/22 06:53 98 21 95 21 04/05/22 06:46 86 18 97 30 04/05/22 06:00 92 16 121/65 (83) 98 Mechanical Ventilator 30.00 04/05/22 05:52 93 134/76 04/05/22 05:51 93 134/76 04/05/22 05:00 90 20 121/65 (83) 96 Mechanical Ventilator 30.00 04/05/22 04:37 93 134/76 04/05/22 04:37 93 134/76 04/05/22 04:36 93 134/76 04/05/22 04:00 30 04/05/22 04:00 91 20 118/61 (80) 96 Mechanical Ventilator 30.00 04/05/22 04:00 97 Mechanical Ventilator 30 04/05/22 03:25 93 134/76 04/05/22 03:15 37.4 04/05/22 03:02 93 134/76 04/05/22 03:02 93 134/76 04/05/22 03:00 94 26 115/68 (84) 97 Mechanical Ventilator 30.00 04/05/22 02:28 93 24 97 30 04/05/22 02:00 96 22 115/67 (83) 97 Mechanical Ventilator 30.00 04/05/22 01:00 92 28 130/70 (90) 97 Mechanical Ventilator 30.00 04/05/22 01:00 93 04/05/22 00:00 93 28 129/67 (87) 97 Mechanical Ventilator 30.00 04/04/22 23:44 90 23 97 30 04/04/22 23:40 36.4 04/04/22 23:36 30 04/04/22 23:35 97 Mechanical Ventilator 30 04/04/22 23:08 85 129/72 04/04/22 23:07 85 129/72 04/04/22 23:00 85 28 129/72 (91) 97 Mechanical Ventilator 30.00 04/04/22 22:29 89 145/77 04/04/22 22:00 86 29 106/59 (75) 98 Mechanical Ventilator 30.00 04/04/22 21:00 90 21 130/69 (89) 100 Mechanical Ventilator 30.00 04/04/22 20:44 89 145/77 04/04/22 20:03 89 145/77 04/04/22 20:02 35.9 04/04/22 20:00 30 04/04/22 20:00 89 22 136/74 (94) 97 Mechanical Ventilator 30.00 04/04/22 20:00 95 Mechanical Ventilator 30 04/04/22 19:25 89 26 95 30 04/04/22 19:17 89 145/77 04/04/22 19:00 84 19 114/64 (81) 96 Mechanical Ventilator 30.00 04/04/22 19:00 88 04/04/22 18:29 91 131/71 04/04/22 18:00 91 26 131/71 (91) 96 Mechanical Ventilator 30.00 04/04/22 17:00 98 27 139/74 (95) 97 Mechanical Ventilator 30.00 04/04/22 16:54 95 123/72 04/04/22 16:16 30 04/04/22 16:16 Mechanical Ventilator 30 04/04/22 16:00 36.7 04/04/22 16:00 98 121/66 (84) 97 Mechanical Ventilator 30.00 04/04/22 15:17 101 147/74 04/04/22 15:05 101 25 100 30 04/04/22 15:00 100 136/70 (92) 97 Mechanical Ventilator 30.00 04/04/22 14:00 101 42 143/69 (93) 97 Mechanical Ventilator 30.00 04/04/22 13:01 82 136/73 04/04/22 13:00 90 04/04/22 13:00 85 19 138/74 (95) 95 Mechanical Ventilator 30.00 04/04/22 12:56 96 Mechanical Ventilator 30 04/04/22 12:55 30 04/04/22 12:00 83 20 118/66 (83) 95 Mechanical Ventilator 30.00 I & O 04/05/22 07:00 Intake Total 4545 ml Output Total 4250 ml Balance 295 ml Capillary Refill : Less Than 3 Seconds General Appearance: No Apparent Distress HEENT: TMs Normal Neck: Full Range of Motion Respiratory: Decreased Breath Sounds, Rhonci Cardiovascular: Regular Rate, Rhythm Gastrointestinal: normal bowel sounds, soft, other (peg intact and functional, no redness/erythema) Extremity: Normal Capillary Refill Neurologic/Psychiatric: Alert Skin: Normal Color Lymphatic: No Adenopathy Results Lab Laboratory Tests 04/04/22 18:39: Glucometer 325H 04/04/22 23:23: Glucometer 329H 04/05/22 03:13: White Blood Count 8.9, Red Blood Count 2.64L, Hemoglobin 8.8L, Hematocrit 26L, Mean Corpuscular Volume 99, Mean Corpuscular Hemoglobin 33, Mean Corpuscular Hemoglobin Concent 34, Red Cell Distribution Width 14.7H, Platelet Count 242, Mean Platelet Volume 12.0, Immature Granulocyte % (Auto) 1, Neutrophils (%) (Auto) 72, Lymphocytes (%) (Auto) 16, Monocytes (%) (Auto) 8, Eosinophils (%) (Auto) 3, Basophils (%) (Auto) 0, Neutrophils # (Auto) 6.4, Lymphocytes # (Auto) 1.4, Monocytes # (Auto) 0.8, Eosinophils # (Auto) 0.2, Basophils # (Auto) 0.0, Immature Granulocyte # (Auto) 0.1, Sodium Level 149H, Potassium Level 3.6, Chloride Level 117H, Carbon Dioxide Level 19L, Anion Gap 13, Blood Urea Nitrogen 42H, Creatinine 0.98, Estimat Glomerular Filtration Rate 88, BUN/Creatinine Ratio 43, Glucose Level 269H, Calcium Level 6.5L, Phosphorus Level 2.5, Magnesium Level 2.1 04/05/22 10:00: Vancomycin Level Trough 17.9 Microbiology 04/03/22 Blood Culture - Preliminary, Resulted Probable Enterococcus Species 04/03/22 Catheter Tip Culture - Preliminary, Resulted Gram Positive Cocci in Cluster 04/02/22 Urine Culture - Final, Complete NO GROWTH 03/13/22 MRSA Screen - Final, Complete MRSA not isolated Assessment/Plan Assessment/Plan Assess & Plan/Chief Complaint on vent sedated with NSTEMI and respiratory failure with ileus s/p tracheostomy and PEG placement filed multiple extubation attempts and now intubated for 2 weeks. recommend drain sponge gauze daily and PRN to trach and PEG site. has developed mild brownish drainage per PEG exit site. 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 our recommendation is to allow the tract to mature. later if he doesn't need the g-tube, treatment would be to remove the PEG tube and allow both the gastrocutaneous and colocutaneous fistulas to close on own over time. patient is not a stable candidate for any major surgery/laparotomy. cont abx due to +blood culture. peg functional and can increase to goal. ok to stop TPN. would recommend central iv access break for as long as possible. currently no indication for one. d/c laxatives to slightly solidify stools more and decrease colocutaneous output. ANALIA SALAZAR MD Apr 05, 2022 12:05
--- NOTE | 2022-04-05 12:06 | Tele-ICU Progress Note ---
Subjective Date Seen by a Provider: Apr 05, 2022 Time Seen by a Provider: 12:06 Subjective/Events-last exam Subjective/Events-last exam (Tele-ICU Physician , Progress Note ) Service provided via interactive audio and video telecommunications E-CARE system to a patient admitted to ICU bed in [facility]. Available chart/ vitals / labs / Images reviewed Video assessment done using teleICU camera, rest of exam as per RN Discussed with RN Events overnight : issues with returned volumes on vent - VENT CHANGED - doing well FEBRILE 38 hemodynamically stable Respiratory - I/O = ois 4 L VENT SETTINGS and ABG reviewed Sedation: RASS discussed with RN , - IV Fentany @ 50 and Propofol @ 210 , TG's 137, also on IV Precedex @ 1.0 NOT CANDIDATE for SBTreviewed possible contraindications including Cardiovascular Stability /Sedation Score / FI02/PEEP / ABG / CXR/ secretions Drips: tpn Pressors- no Consultants: Hospital course: (03/12) 61M Admitted for COPD/CHF, bronchitis. Hypercapenic. ?NSTEMI. INTUBATED in ICU (03/17) EXTUBATED AND REINTUBATED. Worsening pulmonary edema. (03/21) Needs KUB. Cannot do d/t weight. Surgery consulted. (03/22) EXTUBATED AND THEN REINTUBATED. Hypertensive (03/24) Large ngt output, tf on hold. 03/26-AC 26/Vt 500/FiO2 55%/ (03/26) s/p tracheostomy and PEG, TPN started 04/02- issues with returned volumes on vent - VENT CHANGED - doing well 04/03- STARTING vanco and Zosyn , CT abd -No significant abnormality in the abdomen or pelvis is identified. a -line removed 04/05- fever 38, NEW CX POSITIVE FOR PRESUMED ENTEROCOCCUS _ WILL REMOVE LINE < REPEAT CX , EXPAMD ABX COVERAGE UNTIL FINAL ID KNOWN A/P Acute resp failure - s/p ETT 03/12 , has been extubated x 2, reintubated on 03/22, TRACH 03/26 04/02- issues with returned volumes on vent - VENT CHANGED - doing well now -AC 16 , Vt 600, Peak Paw in 20s 40 % PEEP 8 - secretions moderate - cont nebs Delirium - CONT FENTANYL PATCH AND ATIVAN PRN -on propofol 10 , fent 23, precedex 1.0- trying to wean off - can follow minimal commands HTN severe . - cardene gtt and lasix - both stopped now Suspected sepsis , -Hypotension . - ? volume shift after agressive diureis - responded to albumin , -sepsis w/up sent 04/02 while OFF ABX ( z max dose for GI motility ) 04/03-STARTING vanco and Zosyn, CT abd done 04/03 cx from post x2 - Coag + staph - to repeat peripheral cx 04/05- fever 38, NEW CX POSITIVE FOR PRESUMED ENTEROCOCCUS _ WILL REMOVE LINE < , ? EXPAND ABX COVERAGE UNTIL FINAL ID KNOWN - WILL TALK TO PHARMACY about local resistance pattern Ac systolic CHF. CAD - echo on 03/12/22: LVEF 35-40%, mod diffuse hypokinesis of LV - as per cards RESUME LASIX prn COPD suspercted - acute on chronic exacerbation - not on steroid , cont nebs Anemia 03/26 - Hb drop 3 g - follow , no acute bleeding - stable HB last 3 days Hypernatremia - with diuresis , IVF stopped - adjust NA in TPN , getting h20 in TF GAEL at presentation - - follow closely , better DM - ISS to adjust s/pPEG 03/26 -04/03-eveloped mild brownish drainage per PEG exit site. 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 which is contained and no intraperitoneal leakage per recent CT scan- as per SX TF have been on hold due to large NG output and plans for PEG - CONT TPN - TF and advance as tolerated - @ 30cc/h - on reglan and Z-max 100 for motility - start ingto cut down TPN Lines : triple PICC - placed on 03/13 , on 04/03 cx from post x2 - Coag + staph - to repeat peripheral cx , 04/05 NEW CX POSITIVE FOR PRESUMED ENTEROCOCCUS L= REMOVED LINE, midlaine placed Jenkins: + CHANGE D106/[id number] OG: Nutrition: TPN and TF Analgesia: Anxiety/ delirium VTE Prophylaxis: viktoria 40 Stress Ulcer Prophylaxis: PPI Plans in collaboration with bedside consultants and IM MDs. Discussed with RN to reach out if any questions or concerns A total of 33 minutes of critical care time was devoted to this patient today, required to treat and/or prevent further deterioration of critical care condition ( as above ) . Sepsis Event Evaluation Height, Weight, BMI Height: '" Weight: lbs. oz. kg; 45.46 BMI Method: Focused Exam Lactate Level 04/03/22 08:55: Lactic Acid Level 1.08 Exam Exam Patient acknowledged, consented, and participated in this virtual visit which was conducted using real time audio/video Vital Signs Date Time Temp Pulse Resp B/P (MAP) Pulse Ox O2 Delivery O2 Flow Rate FiO2 04/05/22 11:00 112 16 149/76 (100) 98 Mechanical Ventilator 30.00 04/05/22 10:50 Mechanical Ventilator 30.00 04/05/22 10:42 38.2 04/05/22 10:00 101 30 122/68 (86) 93 Mechanical Ventilator 21.00 04/05/22 09:44 98 24 95 21 04/05/22 09:15 98 145/73 04/05/22 09:00 96 26 149/73 (98) 94 Mechanical Ventilator 21.00 04/05/22 08:00 103 22 134/86 (102) 94 Mechanical Ventilator 21.00 04/05/22 07:46 37.9 04/05/22 07:43 104 129/66 04/05/22 07:40 95 Mechanical Ventilator 30 04/05/22 07:40 30 04/05/22 07:00 97 22 129/70 (89) 94 Mechanical Ventilator 21.00 04/05/22 07:00 104 04/05/22 06:53 98 21 95 21 04/05/22 06:46 86 18 97 30 04/05/22 06:00 92 16 121/65 (83) 98 Mechanical Ventilator 30.00 04/05/22 05:52 93 134/76 04/05/22 05:51 93 134/76 04/05/22 05:00 90 20 121/65 (83) 96 Mechanical Ventilator 30.00 04/05/22 04:37 93 134/76 04/05/22 04:37 93 134/76 04/05/22 04:36 93 134/76 04/05/22 04:00 30 04/05/22 04:00 91 20 118/61 (80) 96 Mechanical Ventilator 30.00 04/05/22 04:00 97 Mechanical Ventilator 30 04/05/22 03:25 93 134/76 04/05/22 03:15 37.4 04/05/22 03:02 93 134/76 04/05/22 03:02 93 134/76 04/05/22 03:00 94 26 115/68 (84) 97 Mechanical Ventilator 30.00 04/05/22 02:28 93 24 97 30 04/05/22 02:00 96 22 115/67 (83) 97 Mechanical Ventilator 30.00 04/05/22 01:00 92 28 130/70 (90) 97 Mechanical Ventilator 30.00 04/05/22 01:00 93 04/05/22 00:00 93 28 129/67 (87) 97 Mechanical Ventilator 30.00 04/04/22 23:44 90 23 97 30 04/04/22 23:40 36.4 04/04/22 23:36 30 04/04/22 23:35 97 Mechanical Ventilator 30 04/04/22 23:08 85 129/72 04/04/22 23:07 85 129/72 04/04/22 23:00 85 28 129/72 (91) 97 Mechanical Ventilator 30.00 04/04/22 22:29 89 145/77 04/04/22 22:00 86 29 106/59 (75) 98 Mechanical Ventilator 30.00 04/04/22 21:00 90 21 130/69 (89) 100 Mechanical Ventilator 30.00 04/04/22 20:44 89 145/77 04/04/22 20:03 89 145/77 04/04/22 20:02 35.9 04/04/22 20:00 30 04/04/22 20:00 89 22 136/74 (94) 97 Mechanical Ventilator 30.00 04/04/22 20:00 95 Mechanical Ventilator 30 04/04/22 19:25 89 26 95 30 04/04/22 19:17 89 145/77 04/04/22 19:00 84 19 114/64 (81) 96 Mechanical Ventilator 30.00 04/04/22 19:00 88 04/04/22 18:29 91 131/71 04/04/22 18:00 91 26 131/71 (91) 96 Mechanical Ventilator 30.00 04/04/22 17:00 98 27 139/74 (95) 97 Mechanical Ventilator 30.00 04/04/22 16:54 95 123/72 04/04/22 16:16 30 04/04/22 16:16 Mechanical Ventilator 30 04/04/22 16:00 36.7 04/04/22 16:00 98 121/66 (84) 97 Mechanical Ventilator 30.00 04/04/22 15:17 101 147/74 04/04/22 15:05 101 25 100 30 04/04/22 15:00 100 136/70 (92) 97 Mechanical Ventilator 30.00 04/04/22 14:00 101 42 143/69 (93) 97 Mechanical Ventilator 30.00 04/04/22 13:01 82 136/73 04/04/22 13:00 90 04/04/22 13:00 85 19 138/74 (95) 95 Mechanical Ventilator 30.00 04/04/22 12:56 96 Mechanical Ventilator 30 04/04/22 12:55 30 I & O 04/05/22 07:00 Intake Total 4545 ml Output Total 4250 ml Balance 295 ml Height & Weight Height: '" Weight: lbs. oz. kg; 45.46 BMI Method: General Appearance: No Apparent Distress HEENT: TMs Normal Neck: Full Range of Motion Respiratory: Decreased Breath Sounds, Rhonci Cardiovascular: Regular Rate, Rhythm Capillary Refill: Less Than 3 Seconds Peripheral Pulses: 2+ Dorsalis Pedis (R), 2+ Left Dors-Pedis (L) Gastrointestinal: normal bowel sounds, soft, other (peg intact and functional, no redness/erythema) Extremity: Normal Capillary Refill Neurologic/Psychiatric: Alert Skin: Normal Color Lymphatic: No Adenopathy Results Lab Laboratory Tests 04/04/22 04:45 04/04/22 06:05 04/05/22 03:13 Assessment/Plan Assessment/Plan 1 MILAGROS HUBER MD Apr 05, 2022 12:06
[2022-04-05 15:06] VITALS: BP 148/79
[2022-04-05 18:27] VITALS: BP 150/87
[2022-04-05] MEDS: ALPRAZolam 1 MG (XANAX) TAB PO PRN (21:25)
[2022-04-05 22:03] VITALS: BP 104/66
[2022-04-05] MEDS: NS IV 1000 ML 1,000 ML IV SCH (22:45)
[2022-04-06] MEDS: PIPERACILLIN SODIUM/TAZOBACTAM 4.5 GM in NS (IVPB) 100 ML IV SCH ×3 (00:05→16:30)
[2022-04-06] MEDS: DexMEDEtomidine 250 ML DRIP 250 ML IV SCH ×4 (01:13→18:52)
[2022-04-06] MEDS: inSUlin ASPART (NovoLOG) 1 UNIT/0.01 ML (CHARGE PER UNIT) SC SCH ×7 (01:38→19:36)
[2022-04-06 02:38] VITALS: BP 101/64
[2022-04-06] MEDS: RT-ALBUTEROL/IPRATROPIUM 3 ML (DUONEB) VIAL INH SCH ×6 (02:38→21:37)
[2022-04-06] MEDS: niCARdipine IV (Pyxis drip kit 50 MG in NS (IVPB) 230 ML IV SCH ×2 (03:25→13:20)
[2022-04-06] MEDS: NOREPINEPHRINE 8 MG/250 ML 250 ML IV SCH ×3 (03:26→19:06)
[2022-04-06] MEDS: MIDAZOLAM 2 MG/2 ML (VERSED) VIAL IVP PRN (04:13)
[2022-04-06] MEDS: PROPOFOL DRIP (ICU) 100 ML IV SCH ×5 (04:14→21:09)
[2022-04-06 05:15] LABS: BASOPHILS # (AUTO) 0.1 10^3/uL (0.0-0.1); BASOPHILS % (AUTO) 0 % (0-10); EOSINOPHILS # (AUTO) 0.1 10^3/uL (0.0-0.3); EOSINOPHILS % (AUTO) 1 % (0-10); HEMATOCRIT 33 % (40-54); HEMOGLOBIN 10.6 g/dL (13.3-17.7); LYMPHOCYTES # (AUTO) 1.9 10^3/uL (1.0-4.0); LYMPHOCYTES % (AUTO) 13 % (12-44); MEAN CORPUSCULAR HEMOGLOBIN 32 pg (25-34); MEAN CORPUSCULAR HGB CONC 32 g/dL (32-36); MEAN CORPUSCULAR VOLUME 101 fL (80-99); MEAN PLATELET VOLUME 12.1 fL (9.0-12.2); MONOCYTES # (AUTO) 1.1 10^3/uL (0.0-1.0); MONOCYTES % (AUTO) 8 % (0-12); NEUTROPHILS # (AUTO) 10.9 10^3/uL (1.8-7.8); NEUTROPHILS % (AUTO) 77 % (42-75); PLATELET COUNT 332 10^3/uL (130-400); WHITE BLOOD COUNT 14.2 10^3/uL (4.3-11.0)
[2022-04-06 05:21] LABS: POTASSIUM 4.3 MMOL/L (3.6-5.0)
[2022-04-06 05:22] LABS: CALCIUM 8.1 MG/DL (8.5-10.1)
[2022-04-06 05:26] LABS: PHOSPHORUS 3.9 MG/DL (2.3-4.7)
[2022-04-06 05:27] LABS: CREATININE SERUM 1.77 MG/DL (0.60-1.30)
[2022-04-06 05:29] LABS: MAGNESIUM 2.7 MG/DL (1.6-2.4)
[2022-04-06] MEDS: MAGNESIUM 1 GM/100 ML IVPB 100 ML IV SCH (05:50)
[2022-04-06] MEDS: POTASSIUM CL 10MEQ/50ML IVPB 50 ML IV SCH (05:50)
[2022-04-06] MEDS: KCL 20 MEQ TAB (K-DUR) PO SCH (05:51)
[2022-04-06] MEDS: METOCLOPRAMIDE INJ 10 MG/2 ML (REGLAN) IVP SCH ×3 (06:14→17:45)
[2022-04-06] MEDS: FUROSEMIDE 40 MG/4 ML INJ (LASIX) IVP SCH ×2 (06:14→16:30)
[2022-04-06 07:00] VITALS: BP 88/56
--- NOTE | 2022-04-06 08:39 | Tele-ICU Progress Note ---
Subjective Date Seen by a Provider: Apr 06, 2022 Time Seen by a Provider: 08:38 Subjective/Events-last exam (Tele-ICU Physician , Progress Note ) Service provided via interactive audio and video telecommunications E-CARE system to a patient admitted to ICU bed in [facility]. Available chart/ vitals / labs / Images reviewed Video assessment done using teleICU camera, rest of exam as per RN Discussed with RN Events overnight : increased need for fio2 from 30% to 100% , slowly overnigh. TF were stopped with suspected emesis/aspiration FEBRILE 38 hemodynamically stable Respiratory - I/O = ois 4 L VENT SETTINGS and ABG reviewed Sedation: RASS discussed with RN , - IV Fentany @ 50 and Propofol @ 210 , TG's 137, also on IV Precedex @ 1.0 NOT CANDIDATE for SBTreviewed possible contraindications including Cardiovascular Stability /Sedation Score / FI02/PEEP / ABG / CXR/ secretions Drips: tpn Pressors- no Consultants: Hospital course: (03/12) 61M Admitted for COPD/CHF, bronchitis. Hypercapenic. ?NSTEMI. INTUBATED in ICU (03/17) EXTUBATED AND REINTUBATED. Worsening pulmonary edema. (03/21) Needs KUB. Cannot do d/t weight. Surgery consulted. (03/22) EXTUBATED AND THEN REINTUBATED. Hypertensive (03/24) Large ngt output, tf on hold. 03/26-AC 26/Vt 500/FiO2 55%/ (03/26) s/p tracheostomy and PEG, TPN started 04/02- issues with returned volumes on vent - VENT CHANGED - doing well 04/03- STARTING vanco and Zosyn , CT abd -No significant abnormality in the abdomen or pelvis is identified. a -line removed 04/05- fever 38, NEW CX POSITIVE FOR PRESUMED ENTEROCOCCUS _ WILL REMOVE LINE < REPEAT CX , EXPAMD ABX COVERAGE UNTIL FINAL ID KNOWN 04/06= increased need for fio2 from 30% to 100% , slowly overnigh. TF were stopped with suspected emesis/aspiration A/P Acute resp failure - s/p ETT 03/12 , has been extubated x 2, reintubated on 03/22, TRACH 03/26 - increased need for fio2 from 30% to 100% , slowly overnigh. TF were stopped with suspected emesis/aspiration -AC 16 , Vt 600, Peak Paw in 20s 100 % PEEP 8 - SUSPECTED ASPIRATION PNEUMONITIS , less likely PE given slow increase of Fio2 . WIll check US LE , but will not preoceed with PE r/o given GAEL and unstable resp status - GAEL 04/06 - hold diuretics - follow cxr Suspected sepsis , -Hypotension 12.20 - ? volume shift after agressive diureis - responded to albumin , -sepsis w/up sent 04/02 while OFF ABX ( z max dose for GI motility ) 04/03-STARTING vanco and Zosyn, CT abd done 04/03 cx from post x2 - Coag + staph - to repeat peripheral cx 04/05- fever 38, NEW CX POSITIVE FOR PRESUMED ENTEROCOCCUS _ WILL REMOVE LINE < , ? EXPAND ABX COVERAGE UNTIL FINAL ID KNOWN - WILL TALK TO PHARMACY about local resistance pattern 04/06 - suspected aspiration , increased WBC Delirium - CONT FENTANYL PATCH AND ATIVAN PRN -on propofol 10 , fent 23, precedex 1.0- trying to wean off - can follow minimal commands HTN severe . - cardene gtt and lasix - both stopped now Suspected sepsis , -Hypotension .20 - ? volume shift after agressive diureis - responded to albumin , -sepsis w/up sent 04/02 while OFF ABX ( z max dose for GI motility ) 04/03-STARTING vanco and Zosyn, CT abd done 04/03 cx from post x2 - Coag + staph - to repeat peripheral cx , CTA BD :RLL IN FILTRATE 04/05- fever 38, NEW CX POSITIVE FOR PRESUMED ENTEROCOCCUS _ REMOVED a line and PICC LINE < , ? EXPAND ABX COVERAGE with vanco/zosyn 04/06 - suspected aspiratio , fio2 100% Ac systolic CHF. CAD - echo on 03/12/22: LVEF 35-40%, mod diffuse hypokinesis of LV - as per cards COPD suspercted - acute on chronic exacerbation - not on steroid , cont nebs Anemia 03/26 - Hb drop 3 g - follow , no acute bleeding - stable HB last 3 days Hypernatremia - with diuresis , IVF stopped - adjust NA in TPN , getting h20 in TF DM - ISS to adjust s/pPEG 03/26 -04/03-eveloped mild brownish drainage per PEG exit site. 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 which is contained and no intraperitoneal leakage per recent CT scan- as per SX TF have been on hold due to large NG output and plans for PEG - CONT TPN - TF and advance as tolerated - @ 30cc/h - on reglan and Z-max 100 for motility - start ingto cut down TPN 04/06 - suspected aspiration , holf TF Lines : triple PICC - placed on 03/13 , on 04/03 cx from post x2 - Coag + staph - to repeat peripheral cx , 04/05 NEW CX POSITIVE FOR PRESUMED ENTEROCOCCUS L= REMOVED LINE, midlaine placed Jenkins: + CHANGE OG: Nutrition: TPN and TF Analgesia: Anxiety/ delirium VTE Prophylaxis: viktoria 40 Stress Ulcer Prophylaxis: PPI Plans in collaboration with bedside consultants and IM MDs. Discussed with RN to reach out if any questions or concerns A total of 40 minutes of critical care time was devoted to this patient today, required to treat and/or prevent further deterioration of critical care c ondition ( as above ) . Sepsis Event Evaluation Height, Weight, BMI Height: '" Weight: lbs. oz. kg; 45.57 BMI Method: Focused Exam Lactate Level 04/03/22 08:55: Lactic Acid Level 1.08 Exam Exam Patient acknowledged, consented, and participated in this virtual visit which was conducted using real time audio/video Vital Signs Date Time Temp Pulse Resp B/P (MAP) Pulse Ox O2 Delivery O2 Flow Rate FiO2 04/06/22 07:22 36.3 04/06/22 07:00 95 04/06/22 07:00 92 19 117/67 (84) 96 Mechanical Ventilator 60.00 04/06/22 06:08 37.0 60.00 04/06/22 06:00 98 20 105/63 (77) 95 Mechanical Ventilator 30.00 04/06/22 05:00 94 21 107/65 (79) 96 Mechanical Ventilator 30.00 04/06/22 04:00 97 20 128/73 (91) 100 Mechanical Ventilator 30.00 04/06/22 04:00 60 04/06/22 04:00 90 Mechanical Ventilator 60 04/06/22 03:00 93 23 130/82 (98) 96 Mechanical Ventilator 30.00 04/06/22 02:38 92 19 96 30 04/06/22 02:00 97 27 113/69 (84) 100 Mechanical Ventilator 30.00 04/06/22 01:13 98 107/69 04/06/22 01:00 101 24 105/65 (78) 99 Mechanical Ventilator 30.00 04/06/22 01:00 101 04/06/22 00:00 37.6 100 23 115/71 (86) 97 Mechanical Ventilator 30.00 04/06/22 00:00 30 04/05/22 23:59 99 Mechanical Ventilator 30 04/05/22 23:00 107 20 105/63 (77) 98 Mechanical Ventilator 30.00 04/05/22 22:23 99 Mechanical Ventilator 30 04/05/22 22:03 105 23 98 30 04/05/22 22:00 107 20 114/66 (82) 97 Mechanical Ventilator 30.00 04/05/22 21:55 38.2 04/05/22 21:31 128 127/74 04/05/22 21:25 38.0 04/05/22 21:00 130 20 128/72 (90) 98 Mechanical Ventilator 30.00 04/05/22 20:00 30 04/05/22 20:00 99 Mechanical Ventilator 30 04/05/22 20:00 133 19 139/75 (96) 98 Mechanical Ventilator 30.00 04/05/22 19:00 131 04/05/22 19:00 131 25 130/80 (97) 99 Mechanical Ventilator 30.00 04/05/22 18:27 130 22 98 30 04/05/22 18:00 129 26 154/78 (103) 98 Mechanical Ventilator 30.00 04/05/22 17:30 126 149/79 04/05/22 17:00 125 27 139/78 (98) 98 Mechanical Ventilator 30.00 04/05/22 16:15 37.7 04/05/22 16:00 30 04/05/22 16:00 94 Mechanical Ventilator 30 04/05/22 16:00 123 24 147/97 (114) 96 Mechanical Ventilator 30.00 04/05/22 15:06 122 23 100 30 04/05/22 15:00 124 22 132/76 (94) 98 Mechanical Ventilator 30.00 04/05/22 14:00 114 13 173/93 (119) 94 Mechanical Ventilator 30.00 04/05/22 13:00 114 140/79 (99) 97 Mechanical Ventilator 30.00 04/05/22 12:33 115 04/05/22 12:00 38.8 04/05/22 12:00 97 Mechanical Ventilator 30 04/05/22 12:00 113 20 146/78 (100) 97 Mechanical Ventilator 30.00 04/05/22 12:00 30 04/05/22 11:00 112 16 149/76 (100) 98 Mechanical Ventilator 30.00 04/05/22 10:50 Mechanical Ventilator 30.00 04/05/22 10:42 38.2 04/05/22 10:00 101 30 122/68 (86) 93 Mechanical Ventilator 21.00 04/05/22 09:44 98 24 95 21 04/05/22 09:15 98 145/73 04/05/22 09:00 96 26 149/73 (98) 94 Mechanical Ventilator 21.00 I & O 04/06/22 07:00 Intake Total 3087.5 ml Output Total 3750 ml Balance -662.5 ml Height & Weight Height: '" Weight: lbs. oz. kg; 45.57 BMI Method: General Appearance: No Apparent Distress HEENT: TMs Normal Neck: Full Range of Motion Respiratory: Decreased Breath Sounds, Rhonci Cardiovascular: Regular Rate, Rhythm Capillary Refill: Less Than 3 Seconds Peripheral Pulses: 2+ Dorsalis Pedis (R), 2+ Left Dors-Pedis (L) Gastrointestinal: normal bowel sounds, soft, other (peg intact and functional, no redness/erythema) Extremity: Normal Capillary Refill Neurologic/Psychiatric: Alert Skin: Normal Color Lymphatic: No Adenopathy Results Lab Laboratory Tests 04/05/22 03:13 04/06/22 04:25 Assessment/Plan Assessment/Plan 1 MILAGROS HUBER MD Apr 06, 2022 08:39
[2022-04-06] MEDS: PANTOPRAZOLE 40 MG (PROTONIX) VIAL IV SCH (08:47)
--- NOTE | 2022-04-06 08:47 | Diagnostic Imaging Report ---
INDICATION: Hypoxia. TECHNIQUE: Single view chest 8:26 AM. CORRELATION STUDY: 04/03/2022 FINDINGS: Tracheostomy tube remains in place. Right-sided central line appears to have been removed. Heart size, mediastinum, and vasculature overall unchanged. Perihilar and basilar atelectasis. IMPRESSION: 1. Perihilar and basilar areas of atelectasis. Dictated by: Dictated on workstation # [id number]
[2022-04-06] MEDS: LACRI-LUBE OPTHALMIC OINT 3.5 GM TUBE OU SCH ×3 (08:48→20:42)
[2022-04-06] MEDS: CLOPIDOGREL 75 MG (PLAVIX) TABLET PO SCH (08:49)
[2022-04-06] MEDS: ASPIRIN 81 MG CHEW (CHILDREN'S ASA) PO SCH (08:49)
[2022-04-06] MEDS ORDERED: TROUGH ORDER-PHARMACY XX ONE ×2 (09:00→13:00)
[2022-04-06] MEDS ORDERED: fentaNYL INJ 100 MCG/2 ML AMP IVP NR (09:00)
[2022-04-06] MEDS: ACETAMINOPHEN 325 MG TABLET PO PRN ×2 (09:10→15:11)
[2022-04-06] MEDS: AZITHROMYCIN 100 MG/5 ML (ZITHROMAX) 15ML BTL GT SCH (09:10)
[2022-04-06] MEDS: lisINopril 20 MG (PRINIVIL) TABLET PO SCH (09:19)
[2022-04-06] MEDS: cloNIDine 0.1 MG (CATAPRES) TAB PO SCH ×3 (09:19→19:32)
[2022-04-06] MEDS: meTOprolol TARTRATE 25 MG (LOPRESSOR) TABLET PEG SCH ×2 (09:19→19:32)
--- NOTE | 2022-04-06 09:43 | Cardiology Progress Note ---
Subjective Date Seen by Provider: Apr 06, 2022 Time Seen by Provider: 09:42 Subjective/Events-last exam Patient was seen at bedside, sedated and intubated Review of Systems General: Other (Unable to provide review of system) Objective-Cardiology Exam Last Set of Vital Signs Vital Signs 04/06/22 04/06/22 04/06/22 04:00 09:00 09:10 Temp 38.7 Pulse 93 Resp 19 B/P (MAP) 98/62 (74) Pulse Ox 90 O2 Delivery Mechanical Ventilator O2 Flow Rate 60.00 FiO2 60 I&O Intake and Output 04/06/22 00:00 Intake Total 4367.5 ml Output Total 3875 ml Balance 492.5 ml IV Total 2407.5 ml Tube Feeding 1260 ml Other 700 ml Output Urine Total 3875 ml # Bowel Movements 1 General: Other (Sedated and intubated) HEENT: Atraumatic Neck: Supple, No JVD Heart: Regular Rate Abdomen: Normal Bowel Sounds Extremities: No Clubbing, No Cyanosis Skin: No Rashes, No Breakdown Neuro: Other (Sedated and intubated) Psych/Mental Status: Other (Sedated and intubated) Results Lab Laboratory Tests 04/06/22 04:25 A/P-Cardiology Admission Diagnosis Ventilator dependent respiratory failure Type II myocardial infarction Coronary artery disease Congestive heart failure, acute on chronic left ventricular systolic dysfunction Assessment/Plan Ventilator dependent respiratory failure, failed multiple attempt for weaning Status post tracheostomy on March 26, 2022, PEG tube placement March 26, 2022 Possible transfer to long-term facility Congestive heart failure, acute left ventricular systolic dysfunction, ejection fraction 35 to 40% Responding well to diuresis. Minimal troponin elevation, type II myocardial infarction secondary to hypoxemia . Coronary artery disease, history of stenting done in [facility] in November 2021. COPD with acute decompensation Chronic renal insufficiency, currently stable continue to monitor Diabetes mellitus, followed and managed by primary care physician Hyperlipidemia Morbid obesity. PORSHA LEAL MD Apr 06, 2022 09:43
[2022-04-06] MEDS: SPIRONOLACTONE 25 MG (ALDACTONE) TAB PO SCH (09:59)
[2022-04-06 10:28] VITALS: BP 93/61
--- NOTE | 2022-04-06 10:39 | Physical Therapy Progress Note ---
Therapy Progress Note Pt. remains intubated and sedated, we will continue to monitor patient status for participation in PT. 1039 MESFIN BEAL PT Apr 06, 2022 10:39
--- NOTE | 2022-04-06 11:28 | Progress Note - Hospitalist ---
Subjective HPI/CC On Admission Date Seen by Provider: Apr 06, 2022 Time Seen by Provider: 09:40 Patient is a 61-year-old -[place] male with past medical history of coronary artery disease, hypertension, hyperlipidemia,, COPD who presented to the emergency department due to hypoxia and chest pain. He was seen at the walk-in clinic at [facility] and complained of chest pain to them and he was referred to the emergency department. He has been seen in the ER multiple times in the past week or so but has declined most work-up at those visits. This visit he did allow for labs and x-ray which revealed an NSTEMI. He was admitted for further management. Unfortunately overnight his respiratory status worsened and he required intubation. He is unable to provide me any history due to this and thus all history was obtained from the records. Subjective/Events-last exam He is sedated. His oxygen requirement increased drastically this morning. His blood pressures have decreased. He has family at the bedside and they are updated as well as his , Rona, by telephone. Due to his worsening and complex condition, Rona elected to transition to do not resuscitate status if his heart were to stop beating. Objective Exam Vital Signs Vital Signs Date Time Temp Pulse Resp B/P (MAP) Pulse Ox O2 Delivery O2 Flow Rate FiO2 04/06/22 11:16 37.5 04/06/22 11:09 95 85/56 04/06/22 11:00 22 95 Mechanical Ventilator 90.00 04/06/22 08:00 60 Capillary Refill : Less Than 3 Seconds General Appearance: No Apparent Distress, Obese Neck: Other (tracheostomy) Respiratory: No Respiratory Distress, Decreased Breath Sounds Cardiovascular: Regular Rate, Rhythm, No Murmur Gastrointestinal: Normal Bowel Sounds, Soft Extremity: Normal Inspection, Pedal Edema Neurologic/Psychiatric: Other (sedated) Skin: Normal Color, Cool Results/Procedures Lab Laboratory Tests 04/06/22 04:25 Patient resulted labs reviewed. Imaging: Reviewed Imaging Report Assessment/Plan Assessment and Plan Assess & Plan/Chief Complaint Acute hypercapnic and hypoxic respiratory failure COPD exacerbation with lower respiratory tract infection Acute HFrEF Septic shock Possible bacteremia GAEL Multiorgan failure Trach/PEG 03/[address] Jessica Linder following Ventilator requirement up significantly, max support Possible aspiration Continue antibiotics Started on pressors Blood cultures 04/03 positive for Staph epi, Enterococcus Catheter tip culture positive for Staph epi Staph epi from blood cultures, catheter tip, and repeat blood culture with different susceptibilites, likely all contaminants Continue Vanc and Zosyn PICC removed, replaced Repeat cultures 04/04 with no growth T2DM with hyperglycemia Levemir Novolog Sliding scale insulin Hypernatremia Free water boluses HTN Antihypertensives held due to shock NSTEMI CAD HLD Likely Type II Cardiology following ASA and Plavix Echo with EF of 35% Goals of care discussion Poor prognosis DNR DVT prophylaxis: Lovenox Ileus, resolved Critical Care Critically Ill Patient Diagnosis/Problems Diagnosis/Problems (1) Acute respiratory failure Status: Acute Qualifiers: Respiratory failure complication: hypoxia and hypercapnia Qualified Codes: J96.01 - Acute respiratory failure with hypoxia; J96.02 - Acute respiratory failure with hypercapnia (2) Acute HFrEF (heart failure with reduced ejection fraction) Status: Acute (3) NSTEMI (non-ST elevation myocardial infarction) Status: Acute (4) PNA (pneumonia) Status: Resolved Resolution Date/Time: 03/18/22 @ 18:15 (5) Morbid obesity Status: Chronic (6) COPD (chronic obstructive pulmonary disease) Status: Acute Qualifiers: COPD type: COPD with acute lower respiratory infection Qualified Codes: J44.0 - Chronic obstructive pulmonary disease with (acute) lower respiratory infection (7) Tracheostomy in place Status: Acute (8) Failure to liberate from mechanical ventilation Status: Acute (9) PEG (percutaneous endoscopic gastrostomy) status Status: Acute (10) Ileus Status: Resolved Resolution Date/Time: 04/05/22 @ 10:38 (11) Hypernatremia Status: Acute (12) T2DM (type 2 diabetes mellitus) Status: Acute Qualifiers: 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
[2022-04-06] MEDS: ENOXAPARIN 40 MG/0.4 ML (LOVENOX) SYR SQ SCH (11:34)
[2022-04-06] MEDS: fentaNYL PATCH 50 MCG (DURAGESIC) TD SCH (11:57)
[2022-04-06] MEDS: FENTANYL PATCH REMOVAL TP SCH (11:57)
[2022-04-06 14:30] VITALS: BP 127/70
[2022-04-06] MEDS: fentaNYL DRIP PRE-MIX 250 ML IV SCH (17:48)
[2022-04-06 18:58] VITALS: BP 111/49
[2022-04-06] MEDS: NS IV 1000 ML 1,000 ML IV SCH (19:35)
[2022-04-06 21:30] VITALS: BP 127/69
[2022-04-07] MEDS: niCARdipine IV (Pyxis drip kit 50 MG in NS (IVPB) 230 ML IV SCH ×3 (00:15→18:57)
[2022-04-07] MEDS: inSUlin ASPART (NovoLOG) 1 UNIT/0.01 ML (CHARGE PER UNIT) SC SCH ×9 (00:16→23:38)
[2022-04-07] MEDS: ENOXAPARIN 40 MG/0.4 ML (LOVENOX) SYR SQ SCH ×3 (00:27→23:41)
[2022-04-07] MEDS: PIPERACILLIN SODIUM/TAZOBACTAM 4.5 GM in NS (IVPB) 100 ML IV SCH ×3 (00:28→17:20)
[2022-04-07] MEDS: METOCLOPRAMIDE INJ 10 MG/2 ML (REGLAN) IVP SCH ×5 (00:28→23:41)
[2022-04-07] MEDS: NOREPINEPHRINE 8 MG/250 ML 250 ML IV SCH ×3 (00:28→20:11)
[2022-04-07] MEDS: DexMEDEtomidine 250 ML DRIP 250 ML IV SCH ×2 (01:25→16:37)
[2022-04-07] MEDS: PROPOFOL DRIP (ICU) 100 ML IV SCH ×5 (01:25→20:11)
[2022-04-07 03:13] VITALS: BP 123/68
[2022-04-07] MEDS: RT-ALBUTEROL/IPRATROPIUM 3 ML (DUONEB) VIAL INH SCH ×6 (03:18→23:02)
[2022-04-07 04:49] LABS: BASOPHILS # (AUTO) 0.1 10^3/uL (0.0-0.1); BASOPHILS % (AUTO) 0 % (0-10); EOSINOPHILS # (AUTO) 0.4 10^3/uL (0.0-0.3); EOSINOPHILS % (AUTO) 3 % (0-10); HEMATOCRIT 32 % (40-54); HEMOGLOBIN 10.1 g/dL (13.3-17.7); LYMPHOCYTES # (AUTO) 1.5 10^3/uL (1.0-4.0); LYMPHOCYTES % (AUTO) 11 % (12-44); MEAN CORPUSCULAR HEMOGLOBIN 32 pg (25-34); MEAN CORPUSCULAR HGB CONC 32 g/dL (32-36); MEAN CORPUSCULAR VOLUME 101 fL (80-99); MEAN PLATELET VOLUME 11.5 fL (9.0-12.2); MONOCYTES # (AUTO) 0.8 10^3/uL (0.0-1.0); MONOCYTES % (AUTO) 6 % (0-12); NEUTROPHILS # (AUTO) 10.5 10^3/uL (1.8-7.8); NEUTROPHILS % (AUTO) 78 % (42-75); PLATELET COUNT 328 10^3/uL (130-400); WHITE BLOOD COUNT 13.5 10^3/uL (4.3-11.0)
[2022-04-07 05:05] LABS: POTASSIUM 4.3 MMOL/L (3.6-5.0)
[2022-04-07 05:06] LABS: CALCIUM 8.2 MG/DL (8.5-10.1)
[2022-04-07] MEDS: POTASSIUM CL 10MEQ/50ML IVPB 50 ML IV SCH (05:09)
[2022-04-07 05:10] LABS: PHOSPHORUS 4.3 MG/DL (2.3-4.7)
[2022-04-07] MEDS: KCL 20 MEQ TAB (K-DUR) PO SCH (05:10)
[2022-04-07 05:11] LABS: CREATININE SERUM 1.78 MG/DL (0.60-1.30)
[2022-04-07 05:13] LABS: MAGNESIUM 2.7 MG/DL (1.6-2.4)
[2022-04-07] MEDS: MAGNESIUM 1 GM/100 ML IVPB 100 ML IV SCH (05:13)
[2022-04-07] MEDS ORDERED: TROUGH ORDER-PHARMACY XX ONE (06:00)
[2022-04-07] MEDS: FUROSEMIDE 40 MG/4 ML INJ (LASIX) IVP SCH ×2 (06:24→17:19)
[2022-04-07 06:29] VITALS: BP 121/70
[2022-04-07] MEDS: meTOprolol TARTRATE 25 MG (LOPRESSOR) TABLET PEG SCH ×2 (08:19→20:12)
[2022-04-07] MEDS: lisINopril 20 MG (PRINIVIL) TABLET PO SCH (08:19)
[2022-04-07] MEDS: cloNIDine 0.1 MG (CATAPRES) TAB PO SCH ×3 (08:19→20:12)
[2022-04-07] MEDS: CLOPIDOGREL 75 MG (PLAVIX) TABLET PO SCH (09:02)
[2022-04-07] MEDS: PANTOPRAZOLE 40 MG (PROTONIX) VIAL IV SCH (09:02)
[2022-04-07] MEDS: SPIRONOLACTONE 25 MG (ALDACTONE) TAB PO SCH (09:02)
[2022-04-07] MEDS: ASPIRIN 81 MG CHEW (CHILDREN'S ASA) PO SCH (09:02)
[2022-04-07] MEDS: ACETAMINOPHEN 325 MG TABLET PO PRN (09:39)
--- NOTE | 2022-04-07 10:11 | Cardiology Progress Note ---
Subjective Date Seen by Provider: Apr 07, 2022 Time Seen by Provider: 10:11 Subjective/Events-last exam Patient is laying down in bed, ventilator dependent Review of Systems General: Other (Unable to provide review of system) Objective-Cardiology Exam Last Set of Vital Signs Vital Signs 04/07/22 04/07/22 04/07/22 04/07/22 06:29 08:00 08:19 09:39 Temp 38.1 Pulse 91 Resp 28 B/P (MAP) 127/83 Pulse Ox 91 O2 Delivery Mechanical Ventilator O2 Flow Rate 80.00 FiO2 80 I&O Intake and Output 04/07/22 00:00 Intake Total 1140 ml Output Total 2975 ml Balance -1835 ml Intake Oral 0 ml IV Total 250 ml Tube Feeding 390 ml Other 500 ml Output Urine Total 2575 ml Gastric Drainage Total 400 ml General: Other (Sedated and intubated) HEENT: Atraumatic Neck: Supple, No JVD Heart: Regular Rate Abdomen: Normal Bowel Sounds Extremities: No Clubbing, No Cyanosis Skin: No Rashes, No Breakdown Neuro: Other (Sedated and intubated) Psych/Mental Status: Other (Sedated and intubated) Results Lab Laboratory Tests 04/07/22 04:35 A/P-Cardiology Admission Diagnosis Ventilator dependent respiratory failure Type II myocardial infarction Coronary artery disease Congestive heart failure, acute on chronic left ventricular systolic dysfunction Assessment/Plan Ventilator dependent respiratory failure, failed multiple attempt for weaning Status post tracheostomy on March 26, 2022, PEG tube placement March 26, 2022 Possible transfer to long-term facility Congestive heart failure, acute left ventricular systolic dysfunction, ejection fraction 35 to 40% Responding well to diuresis. Minimal troponin elevation, type II myocardial infarction secondary to hypoxemia. Coronary artery disease, history of stenting done in [facility] in November 2021. COPD with acute decompensation Chronic renal insufficiency, currently stable continue to monitor Diabetes mellitus, followed and managed by primary care physician Hyperlipidemia Morbid obesity. PORSHA LEAL MD Apr 07, 2022 10:11
--- NOTE | 2022-04-07 10:35 | Tele-ICU Progress Note ---
Subjective Date Seen by a Provider: Apr 07, 2022 Time Seen by a Provider: 10:34 Subjective/Events-last exam (Tele-ICU Physician , Progress Note ) Service provided via interactive audio and video telecommunications E-CARE system to a patient admitted to ICU bed in [facility]. Available chart/ vitals / labs / Images reviewed Video assessment done using teleICU camera, rest of exam as per RN Discussed with RN Events overnight : increased need for fio2 from 30% to 100% , slowly overnigh. TF were stopped with suspected emesis/aspiration FEBRILE 38 hemodynamically stable Respiratory - I/O = ois 4 L VENT SETTINGS and ABG reviewed Sedation: RASS discussed with RN , - IV Fentany @ 50 and Propofol @ 210 , TG's 137, also on IV Precedex @ 1.0 NOT CANDIDATE for SBTreviewed possible contraindications including Cardiovascular Stability /Sedation Score / FI02/PEEP / ABG / CXR/ secretions Drips: tpn Pressors- no Consultants: Hospital course: (03/12) 61M Admitted for COPD/CHF, bronchitis. Hypercapenic. ?NSTEMI. INTUBATED in ICU (03/17) EXTUBATED AND REINTUBATED. Worsening pulmonary edema. (03/21) Needs KUB. Cannot do d/t weight. Surgery consulted. (03/22) EXTUBATED AND THEN REINTUBATED. Hypertensive (03/24) Large ngt output, tf on hold. 03/26-AC 26/Vt 500/FiO2 55%/ (03/26) s/p tracheostomy and PEG, TPN started 04/02- issues with returned volumes on vent - VENT CHANGED - doing well 04/03- STARTING vanco and Zosyn , CT abd -No significant abnormality in the abdomen or pelvis is identified. a -line removed 04/05- fever 38, NEW CX POSITIVE FOR PRESUMED ENTEROCOCCUS _ WILL REMOVE LINE < REPEAT CX , EXPAMD ABX COVERAGE UNTIL FINAL ID KNOWN 04/06= increased need for fio2 from 30% to 100% , slowly overnigh. TF were stopped with suspected emesis/aspiration 04/07-04/07- Fio2 80% peep 10 , levo A/P Acute resp failure - s/p ETT 03/12 , has been extubated x 2, reintubated on 03/22, TRACH 03/26 -AC 16 , Vt 600, Peak Paw in 20s 80 % PEEP 10- SUSPECTED ASPIRATION PNEUMONITIS 04/06 , less likely PE given slow increase of Fio2 . WIll check US LE , but will not preoceed with PE r/o given GAEL and unstable resp status GAEL 04/06 - hold diuretics - follow cxr Suspected sepsis , -Hypotension . - ? volume shift after agressive diureis - responded to albumin , -sepsis w/up sent 04/02 while OFF ABX ( z max dose for GI motility ) 04/03-STARTING vanco and Zosyn, CT abd done 04/03 cx from post x2 - Coag + staph - to repeat peripheral cx 04/05- fever 38, NEW CX POSITIVE FOR PRESUMED ENTEROCOCCUS _ WILL REMOVE LINE < , ? EXPAND ABX COVERAGE UNTIL FINAL ID KNOWN - WILL TALK TO PHARMACY about local resistance pattern 04/06 - suspected aspiration , increased WBC Suspected sepsis , -Hypotension . - ? volume shift after agressive diureis - responded to albumin , -sepsis w/up sent 04/02 while OFF ABX ( z max dose for GI motility ) 04/03-STARTING vanco and Zosyn, CT abd done 04/03 cx from post x2 - Coag + staph - to repeat peripheral cx , CTA BD :RLL INFILTRATE 04/05- fever 38, NEW CX POSITIVE FOR PRESUMED ENTEROCOCCUS _ REMOVED a line and PICC LINE < , ? EXPAND ABX COVERAGE with vanco/zosyn 04/06 - suspected aspiration , fio2 100% Shock - suspected sepsis - 04/06 - pressors - to wean Ac systolic CHF. CAD - echo on 03/12/22: LVEF 35-40%, mod diffuse hypokinesis of LV - as per cards COPD suspercted - acute on chronic exacerbation - not on steroid , cont nebs Anemia 03/26 - Hb drop 3 g - follow , no acute bleeding - stable HB last 3 days Hypernatremia - with diuresis , IVF stopped - getting h20 in TF Delirium - CONT FENTANYL PATCH AND ATIVAN PRN -on propofol 10 , fent 23, precedex 1.0- trying to wean off - can follow minimal commands DM - ISS to adjust s/pPEG 03/26 -04/03-eveloped mild brownish drainage per PEG exit site. 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 which is contained and no intraperitoneal leakage per recent CT scan- as per SX TF have been on hold due to large NG output and plans for PEG - CONT TPN - TF and advance as tolerated - @ 30cc/h - on reglan and Z-max 100 for motility - start ingto cut down TPN 04/06 - suspected aspiration , hold TF Lines : triple PICC - placed on 03/13 , on 04/03 cx from post x2 - Coag + staph - to repeat peripheral cx , 04/05 NEW CX POSITIVE FOR PRESUMED ENTEROCOCCUS L= REMOVED LINE, midlaine placed Jenkins: + CHANGE OG: Nutrition: TPN and TF Analgesia: Anxiety/ delirium VTE Prophylaxis: viktoria 40 Stress Ulcer Prophylaxis: PPI Plans in collaboration with bedside consultants and IM MDs. Discussed with RN to reach out if any questions or concerns A total of 40 minutes of critical care time was devoted to this patient today, required to treat and/or prevent further deterioration of critical care condition ( as above ) . Sepsis Event Evaluation Height, Weight, BMI Height: '" Weight: lbs. oz. kg; 45.57 BMI Method: Exam Exam Patient acknowledged, consented, and participated in this virtual visit which was conducted using real time audio/video Vital Signs Date Time Temp Pulse Resp B/P (MAP) Pulse Ox O2 Delivery O2 Flow Rate FiO2 04/07/22 09:39 38.1 04/07/22 08:19 91 127/83 04/07/22 08:00 91 28 127/83 (98) 91 Mechanical Ventilator 80.00 04/07/22 07:16 87 04/07/22 07:00 93 26 129/69 (89) 90 Mechanical Ventilator 80.00 04/07/22 06:29 89 19 93 80 04/07/22 06:00 95 28 136/73 (94) 93 Mechanical Ventilator 80.00 04/07/22 05:28 87 126/74 04/07/22 05:00 89 22 126/70 (88) 97 Mechanical Ventilator 80.00 04/07/22 04:47 36.3 04/07/22 04:27 80 04/07/22 04:00 92 Mechanical Ventilator 80 04/07/22 04:00 75 13 133/72 (92) 95 Mechanical Ventilator 80.00 04/07/22 03:13 78 24 95 80 04/07/22 03:00 84 28 142/75 (97) 95 Mechanical Ventilator 80.00 04/07/22 02:00 70 10 131/68 (89) 97 Mechanical Ventilator 80.00 04/07/22 01:00 66 11 121/74 (90) 95 Mechanical Ventilator 80.00 04/07/22 01:00 70 04/07/22 00:28 78 123/68 04/07/22 00:00 80 04/07/22 00:00 72 19 133/79 (97) 95 Mechanical Ventilator 80.00 04/06/22 23:59 92 Mechanical Ventilator 80 04/06/22 23:00 37.0 04/06/22 23:00 70 24 152/82 (105) 95 Mechanical Ventilator 80.00 04/06/22 22:00 62 24 133/76 (95) 96 Mechanical Ventilator 80.00 04/06/22 21:30 61 16 96 80 04/06/22 21:09 63 125/71 04/06/22 21:00 63 26 125/71 (89) 96 Mechanical Ventilator 80.00 04/06/22 20:00 92 Mechanical Ventilator 80 04/06/22 20:00 76 26 120/74 (89) 98 Mechanical Ventilator 80.00 04/06/22 20:00 36.7 04/06/22 19:45 80 04/06/22 19:06 66 120/69 04/06/22 19:00 66 17 120/69 (86) 93 Mechanical Ventilator 80.00 04/06/22 19:00 66 04/06/22 18:58 66 17 93 80 04/06/22 18:52 66 120/69 04/06/22 18:00 77 27 124/68 (86) 93 Mechanical Ventilator 80.00 04/06/22 17:48 66 123/69 04/06/22 17:40 66 123/69 04/06/22 17:00 83 12 113/69 (84) 93 Mechanical Ventilator 80.00 04/06/22 16:43 Mechanical Ventilator 80.00 04/06/22 16:30 66 123/69 04/06/22 16:15 91 Mechanical Ventilator 80 04/06/22 16:00 66 123/69 04/06/22 16:00 38.1 04/06/22 16:00 80 04/06/22 16:00 66 18 127/70 (89) 96 Mechanical Ventilator 90.00 04/06/22 15:11 38.6 04/06/22 15:08 38.6 04/06/22 15:00 67 18 120/70 (87) 96 Mechanical Ventilator 90.00 04/06/22 14:30 66 20 96 80 04/06/22 14:00 70 19 117/65 (82) 97 Mechanical Ventilator 90.00 04/06/22 13:20 73 112/65 04/06/22 13:20 71 109/64 04/06/22 13:00 70 22 111/63 (79) 96 Mechanical Ventilator 90.00 04/06/22 12:25 73 04/06/22 12:15 96 Mechanical Ventilator 90 04/06/22 12:01 38.2 73 24 112/65 (81) 97 Mechanical Ventilator 90.00 04/06/22 12:00 90 04/06/22 11:34 95 117/69 04/06/22 11:16 37.5 04/06/22 11:09 95 85/56 04/06/22 11:09 95 85/56 04/06/22 11:04 95 85/56 04/06/22 11:00 96 22 90/60 (70) 95 Mechanical Ventilator 90.00 04/06/22 10:52 Mechanical Ventilator 90.00 I & O 04/07/22 07:00 Intake Total 500 ml Output Total 3200 ml Balance -2700 ml Height & Weight Height: '" Weight: lbs. oz. kg; 45.57 BMI Method: General Appearance: No Apparent Distress, Obese HEENT: TMs Normal Neck: Other (tracheostomy) Respiratory: No Respiratory Distress, Decreased Breath Sounds Cardiovascular: Regular Rate, Rhythm, No Murmur Capillary Refill: Less Than 3 Seconds Peripheral Pulses: 2+ Dorsalis Pedis (R), 2+ Left Dors-Pedis (L) Gastrointestinal: normal bowel sounds, soft, other (peg intact and functional, no redness/erythema) Extremity: Normal Inspection, Pedal Edema Neurologic/Psychiatric: Other (sedated) Skin: Normal Color, Cool Lymphatic: No Adenopathy Results Lab Laboratory Tests 04/06/22 04:25 04/07/22 04:35 Assessment/Plan Assessment/Plan 1 MILAGROS HUBER MD Apr 07, 2022 10:35
--- NOTE | 2022-04-07 10:54 | Progress Note - Hospitalist ---
Subjective HPI/CC On Admission Date Seen by Provider: Apr 07, 2022 Time Seen by Provider: 09:30 Patient is a 61-year-old -[place] male with past medical history of coronary artery disease, hypertension, hyperlipidemia,, COPD who presented to the emergency department due to hypoxia and chest pain. He was seen at the walk-in clinic at [facility] and complained of chest pain to them and he was referred to the emergency department. He has been seen in the ER multiple times in the past week or so but has declined most work-up at those visits. This visit he did allow for labs and x-ray which revealed an NSTEMI. He was admitted for further management. Unfortunately overnight his respiratory status worsened and he required intubation. He is unable to provide me any history due to this and thus all history was obtained from the records. Subjective/Events-last exam He remains sedated and mechanically ventilated. Objective Exam Vital Signs Vital Signs Date Time Temp Pulse Resp B/P (MAP) Pulse Ox O2 Delivery O2 Flow Rate FiO2 04/07/22 09:39 38.1 04/07/22 08:19 91 127/83 04/07/22 08:00 28 91 Mechanical Ventilator 80.00 04/07/22 06:29 80 Capillary Refill : Less Than 3 Seconds General Appearance: No Apparent Distress, Obese Neck: Other (tracheostomy in place) Respiratory: No Respiratory Distress, Decreased Breath Sounds Cardiovascular: Regular Rate, Rhythm, No Murmur Gastrointestinal: Normal Bowel Sounds, Soft, Other (PEG in place) Extremity: Normal Inspection, Pedal Edema Neurologic/Psychiatric: Other (sedated) Skin: Normal Color, Warm/Dry Results/Procedures Lab Laboratory Tests 04/07/22 04:35 Patient resulted labs reviewed. Imaging: Reviewed Imaging Report Assessment/Plan Assessment and Plan Assess & Plan/Chief Complaint Acute hypercapnic and hypoxic respiratory failure COPD exacerbation with lower respiratory tract infection Acute HFrEF Septic shock Possible bacteremia GAEL Multiorgan failure Trach/PEG 03/[address] Jessica Linder following Ventilator requirement back down slightly Off pressors now Kidney function stable Blood cultures 04/03 positive for Staph epi, Enterococcus Catheter tip culture positive for Staph epi Staph epi from blood cultures, catheter tip, and repeat blood culture with different susceptibilites, likely all contaminants PICC removed, replaced Repeat cultures 04/04 with no growth Continue Vanc and Zosyn T2DM with hyperglycemia Levemir Novolog Sliding scale insulin Hypernatremia Free water boluses HTN Antihypertensives held due to shock NSTEMI CAD HLD Likely Type II Cardiology following ASA and Plavix Echo with EF of 35% Goals of care discussion Poor prognosis DNR DVT prophylaxis: Lovenox Ileus, resolved Critical Care Critically Ill Patient Diagnosis/Problems Diagnosis/Problems (1) Acute respiratory failure Status: Acute Qualifiers: Respiratory failure complication: hypoxia and hypercapnia Qualified Codes: J96.01 - Acute respiratory failure with hypoxia; J96.02 - Acute respiratory failure with hypercapnia (2) Acute HFrEF (heart failure with reduced ejection fraction) Status: Acute (3) NSTEMI (non-ST elevation myocardial infarction) Status: Acute (4) PNA (pneumonia) Status: Resolved Resolution Date/Time: 03/18/22 @ 18:15 (5) Morbid obesity Status: Chronic (6) COPD (chronic obstructive pulmonary disease) Status: Acute Qualifiers: COPD type: COPD with acute lower respiratory infection Qualified Codes: J44.0 - Chronic obstructive pulmonary disease with (acute) lower respiratory infection (7) Tracheostomy in place Status: Acute (8) Failure to liberate from mechanical ventilation Status: Acute (9) PEG (percutaneous endoscopic gastrostomy) status Status: Acute (10) Ileus Status: Resolved Resolution Date/Time: 04/05/22 @ 10:38 (11) Hypernatremia Status: Acute (12) T2DM (type 2 diabetes mellitus) Status: Acute Qualifiers: 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
[2022-04-07] MEDS: VANCOMYCIN 1,750 MG/NS 500 ML IVPB IV SCH ×2 (10:57)
[2022-04-07] MEDS: LACRI-LUBE OPTHALMIC OINT 3.5 GM TUBE OU SCH ×3 (10:59→20:13)
[2022-04-07 11:22] VITALS: BP 95/57
[2022-04-07 11:56] LABS: ABG BASE EXCESS 0.6 MMOL/L (-2.5-2.5); ABG OXYGEN SATURATION 99 % (94-100); ABG PCO2 48 MMHG (35-45); ABG PH 7.35 (7.37-7.43); ABG PO2 125 MMHG (79-93); ABG TCO2 26.9 MMOL/L (21.0-31.0)
[2022-04-07 11:57] LABS: ALLENS TEST YES-POS; INSPIRED O2 80%; PATIENT TEMP 37.5; VENTILATOR YES
[2022-04-07] MEDS: fentaNYL DRIP PRE-MIX 250 ML IV SCH (14:59)
[2022-04-07 15:16] VITALS: BP 119/65
[2022-04-07 18:58] VITALS: BP 100/52
[2022-04-07] MEDS: NS IV 1000 ML 1,000 ML IV SCH (22:42)
[2022-04-07 23:02] VITALS: BP 124/64
[2022-04-08] MEDS ORDERED: PIPERACILLIN/TAZO 4.5 GM VIAL (ZOSYN) IV ONE (00:22)
[2022-04-08] MEDS: PIPERACILLIN SODIUM/TAZOBACTAM 4.5 GM in NS (IVPB) 100 ML IV SCH (00:43)
[2022-04-08] MEDS: DexMEDEtomidine 250 ML DRIP 250 ML IV SCH ×3 (00:47→20:33)
[2022-04-08] MEDS: PROPOFOL DRIP (ICU) 100 ML IV SCH ×5 (00:47→20:32)
[2022-04-08] MEDS: inSUlin ASPART (NovoLOG) 1 UNIT/0.01 ML (CHARGE PER UNIT) SC SCH ×7 (02:15→20:33)
[2022-04-08 03:11] VITALS: BP 108/57
[2022-04-08] MEDS: RT-ALBUTEROL/IPRATROPIUM 3 ML (DUONEB) VIAL INH SCH ×6 (03:11→23:03)
[2022-04-08] MEDS: fentaNYL DRIP PRE-MIX 250 ML IV SCH (03:55)
[2022-04-08] MEDS: niCARdipine IV (Pyxis drip kit 50 MG in NS (IVPB) 230 ML IV SCH ×2 (05:15→15:15)
[2022-04-08] MEDS: NOREPINEPHRINE 8 MG/250 ML 250 ML IV SCH ×3 (05:22→20:32)
[2022-04-08] MEDS: METOCLOPRAMIDE INJ 10 MG/2 ML (REGLAN) IVP SCH ×3 (05:30→18:18)
[2022-04-08] MEDS: FUROSEMIDE 40 MG/4 ML INJ (LASIX) IVP SCH ×2 (06:21→18:19)
[2022-04-08] MEDS: MAGNESIUM 1 GM/100 ML IVPB 100 ML IV SCH (07:00)
[2022-04-08] MEDS: POTASSIUM CL 10MEQ/50ML IVPB 50 ML IV SCH (07:00)
[2022-04-08] MEDS: KCL 20 MEQ TAB (K-DUR) PO SCH (07:00)
[2022-04-08 07:35] VITALS: BP 99/59
--- NOTE | 2022-04-08 07:46 | Physical Therapy Progress Note ---
Therapy Progress Note Pt. remains intubated and sedated, we will continue to monitor patient status for participation in PT. MARS BERNAL PT Apr 08, 2022 07:46
[2022-04-08] MEDS ORDERED: TROUGH ORDER-PHARMACY XX ONE (08:00)
--- NOTE | 2022-04-08 08:40 | Progress Note - Hospitalist ---
Subjective HPI/CC On Admission Date Seen by Provider: Apr 08, 2022 Patient is a 61-year-old -[place] male with past medical history of coronary artery disease, hypertension, hyperlipidemia,, COPD who presented to the emergency department due to hypoxia and chest pain. He was seen at the walk-in clinic at [facility] and complained of chest pain to them and he was referred to the emergency department. He has been seen in the ER multiple times in the past week or so but has declined most work-up at those visits. This visit he did allow for labs and x-ray which revealed an NSTEMI. He was admitted for further management. Unfortunately overnight his respiratory status worsened and he required intubation. He is unable to provide me any history due to this and thus all history was obtained from the records. Subjective/Events-last exam Pt remains sedated and on vent. No family at bedside. Objective Exam Vital Signs Vital Signs Date Time Temp Pulse Resp B/P (MAP) Pulse Ox O2 Delivery O2 Flow Rate FiO2 04/08/22 08:00 84 18 95/60 (72) 94 Mechanical Ventilator 70.00 04/08/22 07:53 37.6 04/08/22 07:35 70 Capillary Refill : Less Than 3 Seconds General Appearance: No Apparent Distress, Chronically ill, Obese Neck: Other (trach) Respiratory: Decreased Breath Sounds, Other (on vent) Cardiovascular: Regular Rate, Rhythm, No Murmur Neurologic/Psychiatric: Alert, Other (moves arms when spoken to, when I asked to squeeze hand he attempted but fought against the restraint on arm) Results/Procedures Lab Patient resulted labs reviewed. Imaging: Reviewed Imaging Report Assessment/Plan Assessment and Plan Assess & Plan/Chief Complaint Acute hypercapnic and hypoxic respiratory failure COPD exacerbation with lower respiratory tract infection Acute HFrEF Septic shock Possible bacteremia- homero contaminant GAEL- stable Trach/PEG 03/[address] Jessica Linder following Ventilator requirement- 70% FiO2 Off pressors now Kidney function stable- today's labs pending Blood cultures 04/03 positive for Staph epi, Enterococcus Catheter tip culture positive for Staph epi Staph epi from blood cultures, catheter tip, and repeat blood culture with different susceptibilites, likely all contaminants PICC removed, replaced Repeat cultures 04/04 with no growth Continue Vanc, DC Zosyn T2DM with hyperglycemia Levemir Novolog Sliding scale insulin Hypernatremia Free water boluses HTN Antihypertensives held, BP low to normal overnight NSTEMI CAD HLD Likely Type II Cardiology following ASA and Plavix Echo with EF of 35% Goals of care discussion Poor prognosis DNR DVT prophylaxis: Lovenox Critical Care Critically Ill Patient Diagnosis/Problems Diagnosis/Problems (1) Acute respiratory failure Status: Acute Qualifiers: Respiratory failure complication: hypoxia and hypercapnia Qualified Codes: J96.01 - Acute respiratory failure with hypoxia; J96.02 - Acute respiratory failure with hypercapnia (2) CAD (coronary artery disease) Qualifiers: Coronary Disease-Associated Artery/Lesion type: unspecified vessel or lesion type Hughes vs. transplanted heart: unspecified whether [place] or transplanted heart Associated angina: unspecified whether angina present Qualified Codes: I25.10 - Atherosclerotic heart disease of [place] coronary artery without angina pectoris (3) COPD (chronic obstructive pulmonary disease) Status: Acute Qualifiers: COPD type: COPD with acute lower respiratory infection Qualified Codes: J44.0 - Chronic obstructive pulmonary disease with (acute) lower respiratory infection (4) Essential (primary) hypertension Status: Chronic (5) HLD (hyperlipidemia) Status: Chronic Qualifiers: Hyperlipidemia type: unspecified Qualified Codes: E78.5 - Hyperlipidemia, unspecified (6) COPD with acute bronchitis Status: Acute JAIRO MURILLO MD Apr 08, 2022 08:40
--- NOTE | 2022-04-08 08:56 | Cardiology Progress Note ---
Subjective Date Seen by Provider: Apr 08, 2022 Time Seen by Provider: 08:56 Subjective/Events-last exam Patient was seen at bedside, sedated and intubated. Moving his upper extre mities Review of Systems General: Other (Unable to provide review of system) Objective-Cardiology Exam Last Set of Vital Signs Vital Signs 04/08/22 04/08/22 04/08/22 07:35 07:53 08:00 Temp 37.6 Pulse 84 Resp 18 B/P (MAP) 95/60 (72) Pulse Ox 94 O2 Delivery Mechanical Ventilator O2 Flow Rate 70.00 FiO2 70 I&O Intake and Output 04/08/22 00:00 Intake Total 800 ml Output Total 3800 ml Balance -3000 ml Intake Oral 0 ml IV Total 200 ml Other 600 ml Output Urine Total 3800 ml General: Other (Sedated and intubated) HEENT: Atraumatic Neck: Supple, No JVD Heart: Regular Rate Abdomen: Normal Bowel Sounds Extremities: No Clubbing, No Cyanosis Skin: No Rashes, No Breakdown Neuro: Other (Sedated and intubated) Psych/Mental Status: Other (Sedated and intubated) Results Lab Laboratory Tests Test 04/07/22 11:50 04/07/22 12:48 04/07/22 18:48 04/07/22 23:37 Range/Units Blood Gas Puncture Site L RAD Blood Gas Patient Temperature 37.5 Arterial Blood pH 7.35 L 7.37-7.43 Arterial Blood Partial Pressure CO2 48 H 35-45 MMHG Arterial Blood Partial Pressure O2 125 H 79-93 MMHG Arterial Blood HCO3 26 23-27 MMOL/L Arterial Blood Total CO2 26.9 21.0-31.0 MMOL/L Arterial Blood Oxygen Saturation 99 94-100 % Arterial Blood Base Excess 0.6 -2.5-2.5 MMOL/L Johnathon Test YES-POS Blood Gas Ventilator Setting YES Blood Gas Inspired Oxygen 80% Glucometer 146 H 136 H 147 H 70-110 MG/DL Test 04/08/22 05:13 Range/Units Glucometer 159 H 70-110 MG/DL A/P-Cardiology Admission Diagnosis Ventilator dependent respiratory failure Type II myocardial infarction Coronary artery disease Congestive heart failure, acute on chronic left ventricular systolic dysfunction Assessment/Plan Ventilator dependent respiratory failure, failed multiple attempt for weaning Status post tracheostomy on March 26, 2022, PEG tube placement March 26, 2022 Possible transfer to long-term facility Congestive heart failure, acute left ventricular systolic dysfunction, ejection fraction 35 to 40% Responding well to diuresis. Minimal troponin elevation, type II myocardial infarction secondary to hypoxemia. Coronary artery disease, history of stenting done in [facility] in November 2021. COPD with acute decompensation Chronic renal insufficiency, currently stable continue to monitor Diabetes mellitus, followed and managed by primary care physician Hyperlipidemia Morbid obesity. PORSHA LEAL MD Apr 08, 2022 08:56
[2022-04-08] MEDS: meTOprolol TARTRATE 25 MG (LOPRESSOR) TABLET PEG SCH ×2 (09:00→20:33)
[2022-04-08] MEDS: lisINopril 20 MG (PRINIVIL) TABLET PO SCH (09:00)
[2022-04-08] MEDS: cloNIDine 0.1 MG (CATAPRES) TAB PO SCH ×3 (09:00→20:33)
[2022-04-08] MEDS: PANTOPRAZOLE 40 MG (PROTONIX) VIAL IV SCH (09:40)
[2022-04-08] MEDS: LACRI-LUBE OPTHALMIC OINT 3.5 GM TUBE OU SCH ×3 (09:41→20:33)
[2022-04-08] MEDS: ASPIRIN 81 MG CHEW (CHILDREN'S ASA) PO SCH (09:41)
[2022-04-08] MEDS: CLOPIDOGREL 75 MG (PLAVIX) TABLET PO SCH (09:41)
[2022-04-08] MEDS: SPIRONOLACTONE 25 MG (ALDACTONE) TAB PO SCH (09:41)
[2022-04-08 09:44] LABS: BASOPHILS % (AUTO) 0 % (0-10); EOSINOPHILS # (AUTO) 0.3 10^3/uL (0.0-0.3); EOSINOPHILS % (AUTO) 3 % (0-10); HEMATOCRIT 30 % (40-54); HEMOGLOBIN 9.4 g/dL (13.3-17.7); LYMPHOCYTES # (AUTO) 1.7 10^3/uL (1.0-4.0); LYMPHOCYTES % (AUTO) 16 % (12-44); MEAN CORPUSCULAR HEMOGLOBIN 32 pg (25-34); MEAN CORPUSCULAR HGB CONC 31 g/dL (32-36); MEAN CORPUSCULAR VOLUME 101 fL (80-99); MEAN PLATELET VOLUME 11.3 fL (9.0-12.2); MONOCYTES # (AUTO) 0.4 10^3/uL (0.0-1.0); MONOCYTES % (AUTO) 4 % (0-12); NEUTROPHILS # (AUTO) 7.8 10^3/uL (1.8-7.8); NEUTROPHILS % (AUTO) 74 % (42-75); PLATELET COUNT 354 10^3/uL (130-400); WHITE BLOOD COUNT 10.6 10^3/uL (4.3-11.0)
[2022-04-08 10:01] LABS: CALCIUM 8.2 MG/DL (8.5-10.1); CREATININE SERUM 2.13 MG/DL (0.60-1.30); MAGNESIUM 2.7 MG/DL (1.6-2.4); PHOSPHORUS 4.8 MG/DL (2.3-4.7); POTASSIUM 4.1 MMOL/L (3.6-5.0)
[2022-04-08 10:10] LABS: BAND NEUTROPHILS 2 %; BASOPHILS % (MANUAL) 0 %; EOSINOPHILS % (MANUAL) 3 %; LYMPHOCYTES % (MANUAL) 23 %; MONOCYTES % (MANUAL) 5 %; NEUTROPHILS % (MANUAL) 67 %; RBC MORPH NORMAL
[2022-04-08] MEDS: VANCOMYCIN 1,750 MG/NS 500 ML IVPB IV SCH ×2 (10:18)
--- NOTE | 2022-04-08 10:57 | Tele-ICU Progress Note ---
Subjective Date Seen by a Provider: Apr 08, 2022 Time Seen by a Provider: 10:56 Subjective/Events-last exam (Tele-ICU Physician , Progress Note ) Service provided via interactive audio and video telecommunications E-CARE system to a patient admitted to ICU bed in [facility]. Available chart/ vitals / labs / Images reviewed Video assessment done using teleICU camera, rest of exam as per RN Discussed with RN Events overnight : FEBRILE 37.6 hemodynamically stable Respiratory - 7-% I/O = ois 4 L VENT SETTINGS and ABG reviewed Sedation: RASS discussed with RN , - IV Fentany @ 50 and Propofol @ 20 , TG's 137, also on IV Precedex @ 1.0 NOT CANDIDATE for SBTreviewed possible contraindications including Cardiovascular Stability /Sedation Score / FI02/PEEP / ABG / CXR/ secretions Drips: Pressors- no Consultants: Hospital course: (03/12) 61M Admitted for COPD/CHF, bronchitis. Hypercapenic. ?NSTEMI. INTUBATED in ICU (03/17) EXTUBATED AND REINTUBATED. Worsening pulmonary edema. (03/21) Needs KUB. Cannot do d/t weight. Surgery consulted. (03/22) EXTUBATED AND THEN REINTUBATED. Hypertensive (03/24) Large ngt output, tf on hold. 03/26-AC 26/Vt 500/FiO2 55%/ (03/26) s/p tracheostomy and PEG, TPN started 04/02- issues with returned volumes on vent - VENT CHANGED - doing well 04/03- STARTING vanco and Zosyn , CT abd -No significant abnormality in the abdomen or pelvis is identified. a -line removed 04/05- fever 38, NEW CX POSITIVE FOR PRESUMED ENTEROCOCCUS _ WILL REMOVE LINE < REPEAT CX , EXPAMD ABX COVERAGE UNTIL FINAL ID KNOWN 04/06= increased need for fio2 from 30% to 100% , slowly overnigh. TF were stopped with suspected emesis/aspiration 04/07-04/07- Fio2 80% peep 10 , levo 04/08-70 % OFF LEVO, GAEL worsenig Cr 2.1 A/P Acute resp failure - s/p ETT 03/12 , has been extubated x 2, reintubated on 03/22, TRACH 03/26 -AC 16 , Vt 600, Peak Paw in 20s 80 % PEEP 10- SUSPECTED ASPIRATION PNEUMONITIS 04/06 , less likely PE given slow increase of Fio2 = on 70% with peep 10 GAEL 04/06- WORSENING - hold diuretics gentle fluid resuscitation - vanco level is 17 Hypernatremia - with diuresis , IVF stopped - getting h20 in TF - TO increase h2O Suspected sepsis , -Hypotension .20 - ? volume shift after agressive diureis - responded to albumin , -sepsis w/up sent 04/02 while OFF ABX ( z max dose for GI motility ) 04/03-STARTING vanco and Zosyn, CT abd done 04/03 cx from post x2 - Coag + staph - to repeat peripheral cx 04/05- fever 38, NEW CX POSITIVE FOR PRESUMED ENTEROCOCCUS - REMOVED LINE 04/06 - suspected aspiration , increased WBC LEVO gtt 04/07 - off levo Shock - suspected sepsis - 04/07- OFF pressors Ac systolic CHF. CAD - echo on 03/12/22: LVEF 35-40%, mod diffuse hypokinesis of LV - as per cards COPD suspercted - acute on chronic exacerbation - not on steroid , cont nebs Anemia 03/26 - Hb drop 3 g - follow , no acute bleeding - stable HB Delirium - CONT FENTANYL PATCH AND ATIVAN PRN -on propofol 10 , fent 23, precedex 1.0- trying to wean off - can follow minimal commands DM - ISS to adjust s/pPEG 03/26 -04/03-eveloped mild brownish drainage per PEG exit site. 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 which is contained and no intraperitoneal leakage per recent CT scan- as per SX TF have been on hold due to large NG output and plans for PEG - CONT TPN - TF and advance as tolerated - @ 30cc/h - on reglan and Z-max 100 for motility - start ingto cut down TPN 04/06 - suspected aspiration , hold TF Lines : triple PICC - placed on 03/13 , on 04/03 cx from post x2 - Coag + s taph - to repeat peripheral cx , 04/05 NEW CX POSITIVE FOR PRESUMED ENTEROCOCCUS L= REMOVED LINE, midlaine placed Jenkins: + CHANGE D106/06 OG: Nutrition: TPN and TF Analgesia: Anxiety/ delirium VTE Prophylaxis: viktoria 40 Stress Ulcer Prophylaxis: PPI Plans in collaboration with bedside consultants and IM MDs. Discussed with RN to reach out if any questions or concerns A total of 40 minutes of critical care time was devoted to this patient today, required to treat and/or prevent further deterioration of critical care condition ( as above ) . Sepsis Event Evaluation Height, Weight, BMI Height: '" Weight: lbs. oz. kg; 46.73 BMI Method: Exam Exam Patient acknowledged, consented, and participated in this virtual visit which was conducted using real time audio/video Vital Signs Date Time Temp Pulse Resp B/P (MAP) Pulse Ox O2 Delivery O2 Flow Rate FiO2 04/08/22 10:39 81 96/55 04/08/22 10:00 81 18 96/55 (69) 93 Mechanical Ventilator 70.00 04/08/22 09:00 79 22 91/52 (65) 92 Mechanical Ventilator 70.00 04/08/22 08:00 84 18 95/60 (72) 94 Mechanical Ventilator 70.00 04/08/22 07:53 37.6 04/08/22 07:35 82 17 92 70 04/08/22 07:00 85 21 98/60 (73) 91 Mechanical Ventilator 70.00 04/08/22 07:00 78 04/08/22 06:00 83 26 92/53 (66) 92 Mechanical Ventilator 70.00 04/08/22 05:29 81 107/62 04/08/22 05:22 81 107/62 04/08/22 05:15 81 107/62 04/08/22 05:00 81 30 107/62 (77) 92 Mechanical Ventilator 70.00 04/08/22 04:47 81 107/62 04/08/22 04:00 87 13 110/59 (76) 94 Mechanical Ventilator 70.00 04/08/22 03:58 93 Mechanical Ventilator 70 04/08/22 03:57 70 04/08/22 03:55 84 108/57 04/08/22 03:55 37.1 04/08/22 03:11 84 16 93 70 04/08/22 03:00 84 10 104/61 (75) 92 Mechanical Ventilator 70.00 04/08/22 02:00 91 14 110/63 (79) 94 Mechanical Ventilator 70.00 04/08/22 01:00 87 20 115/61 (79) 93 Mechanical Ventilator 70.00 04/08/22 01:00 87 04/08/22 00:47 80 124/64 12/26/22 00:47 80 124/64 04/08/22 00:11 80 124/64 04/08/22 00:00 85 17 116/63 (80) 95 Mechanical Ventilator 70.00 04/07/22 23:51 36.8 04/07/22 23:51 96 Mechanical Ventilator 70 04/07/22 23:46 70 04/07/22 23:02 80 16 96 80 04/07/22 23:00 86 13 123/64 (83) 94 Mechanical Ventilator 70.00 04/07/22 22:00 86 14 122/65 (84) 93 Mechanical Ventilator 70.00 04/07/22 21:00 81 16 113/61 (78) 94 Mechanical Ventilator 70.00 04/07/22 20:37 82 100/52 04/07/22 20:11 82 100/52 04/07/22 20:11 82 100/52 04/07/22 20:00 84 16 128/72 (90) 94 Mechanical Ventilator 70.00 04/07/22 19:23 96 Mechanical Ventilator 70 04/07/22 19:22 70 04/07/22 19:12 36.5 04/07/22 19:01 82 04/07/22 19:00 79 16 113/64 (80) 94 Mechanical Ventilator 70.00 04/07/22 18:58 81 16 96 80 04/07/22 18:57 82 97/59 04/07/22 18:55 82 97/59 04/07/22 18:00 82 20 97/59 (72) 91 Mechanical Ventilator 70.00 04/07/22 17:00 73 17 104/60 (75) 93 Mechanical Ventilator 70.00 04/07/22 16:44 73 119/65 04/07/22 16:44 73 119/65 04/07/22 16:37 73 119/65 04/07/22 16:00 80 04/07/22 16:00 37.2 04/07/22 16:00 79 21 120/66 (84) 92 Mechanical Ventilator 70.00 04/07/22 16:00 92 Mechanical Ventilator 80 04/07/22 15:30 Mechanical Ventilator 70.00 04/07/22 15:29 70 04/07/22 15:16 73 16 94 80 04/07/22 15:00 76 9 113/67 (82) 94 Mechanical Ventilator 80.00 04/07/22 14:59 73 106/63 04/07/22 14:57 73 119/65 04/07/22 14:00 73 27 106/63 (77) 92 Mechanical Ventilator 80.00 04/07/22 13:19 74 04/07/22 13:00 76 13 106/64 (78) 94 Mechanical Ventilator 80.00 04/07/22 12:00 92 Mechanical Ventilator 80 04/07/22 12:00 83 14 101/63 (76) 92 Mechanical Ventilator 80.00 04/07/22 12:00 80 04/07/22 11:30 37.6 04/07/22 11:22 85 17 93 80 04/07/22 11:00 86 17 88/58 (68) 94 Mechanical Ventilator 80.00 04/07/22 10:57 91 127/83 I & O 04/08/22 07:00 Intake Total 1500 ml Output Total 3250 ml Balance -1750 ml Height & Weight Height: '" Weight: lbs. oz. kg; 46.73 BMI Method: General Appearance: No Apparent Distress, Chronically ill, Obese HEENT: TMs Normal Neck: Other (trach) Respiratory: Decreased Breath Sounds, Other (on vent) Cardiovascular: Regular Rate, Rhythm, No Murmur Capillary Refill: Less Than 3 Seconds Peripheral Pulses: 2+ Dorsalis Pedis (R), 2+ Left Dors-Pedis (L) Gastrointestinal: normal bowel sounds, soft, other (peg intact and functional, no redness/erythema) Extremity: Normal Inspection, Pedal Edema Neurologic/Psychiatric: Alert, Other (moves arms when spoken to, when I asked to squeeze hand he attempted but fought against the restraint on arm) Skin: Normal Color, Warm/Dry Lymphatic: No Adenopathy Results Lab Laboratory Tests 04/07/22 04:35 04/08/22 09:39 Assessment/Plan Assessment/Plan 1 MILAGROS HUBER MD Apr 08, 2022 10:57
[2022-04-08 11:35] VITALS: BP 85/60
[2022-04-08] MEDS: ENOXAPARIN 40 MG/0.4 ML (LOVENOX) SYR SQ SCH (12:24)
[2022-04-08] MEDS: fentaNYL INJ 100 MCG/2 ML AMP IVP PRN ×5 (12:24→20:34)
[2022-04-08 15:12] VITALS: BP 109/60
[2022-04-08 19:12] VITALS: BP 106/62
[2022-04-08] MEDS: MIDAZOLAM 2 MG/2 ML (VERSED) VIAL IVP PRN (20:34)
[2022-04-08 22:56] VITALS: BP 130/82
[2022-04-09] VITALS (7 sets, daily range): BP systolic 115–182; BP diastolic 63–104
[2022-04-09] MEDS: METOCLOPRAMIDE INJ 10 MG/2 ML (REGLAN) IVP SCH ×3 (00:07→23:08)
[2022-04-09] MEDS: ENOXAPARIN 40 MG/0.4 ML (LOVENOX) SYR SQ SCH ×3 (00:07→23:08)
[2022-04-09] MEDS: MIDAZOLAM 2 MG/2 ML (VERSED) VIAL IVP PRN (00:08)
[2022-04-09] MEDS: fentaNYL INJ 100 MCG/2 ML AMP IVP PRN ×6 (00:08→21:33)
[2022-04-09] MEDS: inSUlin ASPART (NovoLOG) 1 UNIT/0.01 ML (CHARGE PER UNIT) SC SCH ×9 (00:10→23:08)
[2022-04-09] MEDS: NS IV 1000 ML 1,000 ML IV SCH ×2 (00:10→23:06)
[2022-04-09] MEDS: PROPOFOL DRIP (ICU) 100 ML IV SCH ×5 (00:40→21:23)
[2022-04-09] MEDS: niCARdipine IV (Pyxis drip kit 50 MG in NS (IVPB) 230 ML IV SCH ×3 (00:40→21:24)
[2022-04-09] MEDS: RT-ALBUTEROL/IPRATROPIUM 3 ML (DUONEB) VIAL INH SCH ×6 (03:04→22:29)
[2022-04-09] MEDS: NOREPINEPHRINE 8 MG/250 ML 250 ML IV SCH ×3 (03:28→19:10)
[2022-04-09] MEDS: fentaNYL DRIP PRE-MIX 250 ML IV SCH (03:29)
[2022-04-09] MEDS: LORazepam INJ 2 MG/ML (ATIVAN) VIAL IVP PRN ×3 (03:50→21:33)
[2022-04-09 04:53] LABS: BASOPHILS # (AUTO) 0.1 10^3/uL (0.0-0.1); BASOPHILS % (AUTO) 1 % (0-10); EOSINOPHILS # (AUTO) 0.2 10^3/uL (0.0-0.3); EOSINOPHILS % (AUTO) 2 % (0-10); HEMATOCRIT 30 % (40-54); HEMOGLOBIN 9.1 g/dL (13.3-17.7); LYMPHOCYTES # (AUTO) 1.9 10^3/uL (1.0-4.0); LYMPHOCYTES % (AUTO) 19 % (12-44); MEAN CORPUSCULAR HEMOGLOBIN 31 pg (25-34); MEAN CORPUSCULAR HGB CONC 31 g/dL (32-36); MEAN CORPUSCULAR VOLUME 102 fL (80-99); MEAN PLATELET VOLUME 11.5 fL (9.0-12.2); MONOCYTES # (AUTO) 0.4 10^3/uL (0.0-1.0); MONOCYTES % (AUTO) 4 % (0-12); NEUTROPHILS # (AUTO) 7.1 10^3/uL (1.8-7.8); NEUTROPHILS % (AUTO) 71 % (42-75); PLATELET COUNT 367 10^3/uL (130-400)
[2022-04-09 05:23] LABS: CALCIUM 8.3 MG/DL (8.5-10.1); CREATININE SERUM 2.14 MG/DL (0.60-1.30); MAGNESIUM 2.7 MG/DL (1.6-2.4); PHOSPHORUS 4.1 MG/DL (2.3-4.7); POTASSIUM 3.9 MMOL/L (3.6-5.0)
[2022-04-09] MEDS: KCL 20 MEQ TAB (K-DUR) PO SCH (05:31)
[2022-04-09] MEDS: POTASSIUM CL 10MEQ/50ML IVPB 50 ML IV SCH (05:31)
[2022-04-09] MEDS: MAGNESIUM 1 GM/100 ML IVPB 100 ML IV SCH (05:31)
--- NOTE | 2022-04-09 07:13 | Physical Therapy Progress Note ---
Therapy Progress Note Patient remains sedated and on vent. PT to remove patient from service list due to decline in status and PT need for new orders. MARS BERNAL PT Apr 09, 2022 07:12
[2022-04-09] MEDS: DexMEDEtomidine 250 ML DRIP 250 ML IV SCH ×3 (08:05→19:33)
[2022-04-09] MEDS: PANTOPRAZOLE 40 MG (PROTONIX) VIAL IV SCH (08:05)
[2022-04-09] MEDS: cloNIDine 0.1 MG (CATAPRES) TAB PO SCH ×3 (08:13→19:33)
--- NOTE | 2022-04-09 08:27 | Cardiology Progress Note ---
Subjective Date Seen by Provider: Apr 09, 2022 Time Seen by Provider: 08:25 Subjective/Events-last exam Patient is in bed, ventilator dependent Review of Systems General: Other (Unable to provide review of system) Objective-Cardiology Exam Last Set of Vital Signs Vital Signs 04/09/22 04/09/22 04/09/22 04/09/22 07:20 07:31 08:00 08:05 Temp 36.3 Pulse 92 Resp 17 B/P (MAP) 155/96 Pulse Ox 97 O2 Delivery Mechanical Ventilator O2 Flow Rate 30.00 FiO2 30 I&O Intake and Output 04/09/22 00:00 Intake Total 2597.5 ml Output Total 2000 ml Balance 597.5 ml Intake Oral 0 ml IV Total 1867.5 ml Tube Feeding 40 ml Other 690 ml Output Urine Total 2000 ml General: Other (Sedated and intubated) HEENT: Atraumatic Neck: Supple, No JVD Heart: Regular Rate Abdomen: Normal Bowel Sounds Extremities: No Clubbing, No Cyanosis Skin: No Rashes, No Breakdown Neuro: Other (Sedated and intubated) Psych/Mental Status: Other (Sedated and intubated) Results Lab Laboratory Tests 04/08/22 09:39 04/09/22 04:18 A/P-Cardiology Admission Diagnosis Ventilator dependent respiratory failure Type II myocardial infarction Coronary artery disease Congestive heart failure, acute on chronic left ventricular systolic dysfunction Assessment/Plan Ventilator dependent respiratory failure, failed multiple attempt for weaning Status post tracheostomy on March 26, 2022, PEG tube placement March 26, 2022 Possible transfer to long-term facility Congestive heart failure, acute left ventricular systolic dysfunction, ejection fraction 35 to 40% Holding diuretics now due to worsening renal function Acute renal insufficiency, History of chronic renal insufficiency stopping Lasix and lisinopril, will give 500 cc of saline bolus and monitor renal function Minimal troponin elevation, type II myocardial infarction secondary to hypoxemia. Coronary artery disease, history of stenting done in [facility] in November 2021. COPD with acute decompensation Diabetes mellitus, followed and managed by primary care physician Hyperlipidemia Morbid obesity. PORSHA LEAL MD Apr 09, 2022 08:27
[2022-04-09] MEDS: ASPIRIN 81 MG CHEW (CHILDREN'S ASA) PO SCH (08:37)
[2022-04-09] MEDS: meTOprolol TARTRATE 25 MG (LOPRESSOR) TABLET PEG SCH ×2 (08:37→19:33)
[2022-04-09] MEDS: CLOPIDOGREL 75 MG (PLAVIX) TABLET PO SCH (08:37)
[2022-04-09] MEDS: LACRI-LUBE OPTHALMIC OINT 3.5 GM TUBE OU SCH ×3 (08:37→19:34)
[2022-04-09] MEDS: SPIRONOLACTONE 25 MG (ALDACTONE) TAB PO SCH (08:37)
--- NOTE | 2022-04-09 09:23 | Progress Note - Hospitalist ---
Subjective HPI/CC On Admission Date Seen by Provider: Apr 09, 2022 Patient is a 61-year-old -Turkish male with past medical history of coronary artery disease, hypertension, hyperlipidemia,, COPD who presented to the emergency department due to hypoxia and chest pain. [facility] and complained of chest pain to them and he was referred to the emergency department. He has been seen in the ER mul tiple times in the past week or so but has declined most work-up at those visits. This visit he did allow for labs and x-ray which revealed an NSTEMI. He was admitted for further management. Unfortunately overnight his respiratory status worsened and he required intubation. He is unable to provide me any history due to this and thus all history was obtained from the records. Subjective/Events-last exam Pt remains sedated on vent but down to only precedex. Objective Exam Vital Signs Vital Signs Date Time Temp Pulse Resp B/P (MAP) Pulse Ox O2 Delivery O2 Flow Rate FiO2 04/09/22 09:00 86 12 140/76 (97) 97 Mechanical Ventilator 30.00 04/09/22 07:31 30 04/09/22 07:31 36.3 Capillary Refill : Less Than 3 Seconds General Appearance: Chronically ill, Obese Respiratory: Lungs Clear, No Accessory Muscle Use Cardiovascular: Regular Rate, Rhythm, No Murmur Gastrointestinal: Normal Bowel Sounds, Non Tender, Soft, Other (PEG in place and soft formed stool surrounding site) Extremity: No Pedal Edema Neurologic/Psychiatric: Alert (opened his eyes when spoken to) Results/Procedures Lab Laboratory Tests 04/08/22 09:39 04/09/22 04:18 Patient resulted labs reviewed. Imaging: Reviewed Imaging Report Assessment/Plan Assessment and Plan Assess & Plan/Chief Complaint Acute hypercapnic and hypoxic respiratory failure COPD exacerbation with lower respiratory tract infection Acute HFrEF Septic shock Possible bacteremia- likley contaminant GAEL- stable Colocutaneous fistula Trach/PEG 03/[address] Lopez stool surrounding PEG site- I discussed with Dr Lopez on 04/09 and reports stable and conservative management and once PEG able to be removed it should heal TeleICU following Ventilator requirement- 30% FiO2 (down from over the weekend) Kidney function stable- IVF bolus given this AM by cardiology Adequate UOP Blood cultures 04/03 positive for Staph epi, Enterococcus Catheter tip culture positive for Staph epi Staph epi from blood cultures, catheter tip, and repeat blood culture with different susceptibilites, likely all contaminants PICC removed, replaced Repeat cultures 04/04 with no growth Continue Dayana, GRANT Zosyn Only on precedex gtt, doing well T2DM with hyperglycemia Levemir, increase dose slightly today for fasting BS of 217 Novolog Sliding scale insulin Hypernatremia Free water boluses restarted with tube feeds HTN Antihypertensives restarted BP improved NSTEMI CAD HLD Likely Type II Cardiology following ASA and Plavix Echo with EF of 35% Goals of care discussion Poor prognosis DNR DVT prophylaxis: Lovenox Critical Care Critically Ill Patient Diagnosis/Problems Diagnosis/Problems (1) Acute respiratory failure Status: Acute Qualifiers: Respiratory failure complication: hypoxia and hypercapnia Qualified Codes: J96.01 - Acute respiratory failure with hypoxia; J96.02 - Acute respiratory failure with hypercapnia (2) CAD (coronary artery disease) Qualifiers: Coronary Disease-Associated Artery/Lesion type: unspecified vessel or lesion type [place] vs. transplanted heart: unspecified whether [place] or transplanted heart Associated angina: unspecified whether angina present Qualified Codes: I25.10 - Atherosclerotic heart disease of [place] coronary artery without angina pectoris (3) COPD (chronic obstructive pulmonary disease) Status: Acute Qualifiers: COPD type: COPD with acute lower respiratory infection Qualified Codes: J44.0 - Chronic obstructive pulmonary disease with (acute) lower respiratory infection (4) Essential (primary) hypertension Status: Chronic (5) HLD (hyperlipidemia) Status: Chronic Qualifiers: Hyperlipidemia type: unspecified Qualified Codes: E78.5 - Hyperlipidemia, unspecified (6) COPD with acute bronchitis Status: Acute JAIRO MURILLO MD Apr 09, 2022 09:23
[2022-04-09] MEDS ORDERED: LOPERAMIDE 2 MG (IMODIUM) TABLET PO PRN (09:30)
--- NOTE | 2022-04-09 11:50 | Physical Therapy Progress Note ---
Therapy Progress Note Upon consulting with physician, PT will continue to monitor patient status and initiate treatment due to continued attempts to wean sedation to allow skilled therapy to address functional gross motor skills. Patient to remain on schedule status. MARS BERNAL PT Apr 09, 2022 11:50
[2022-04-09] MEDS: FENTANYL PATCH REMOVAL TP SCH (12:33)
[2022-04-09] MEDS: fentaNYL PATCH 50 MCG (DURAGESIC) TD SCH (12:51)
--- NOTE | 2022-04-09 13:01 | Tele-ICU Progress Note ---
Subjective Date Seen by a Provider: Apr 09, 2022 Time Seen by a Provider: 10:08 Subjective/Events-last exam (Tele-ICU Physician , Progress Note ) Service provided via interactive audio and video telecommunications E-CARE system to a patient admitted to ICU bed in [facility]. Available chart/ vitals / labs / Images reviewed Video assessment done using teleICU camera, rest of exam as per RN Discussed with RN Events overnight : FEBRILE 37.6 hemodynamically stable Respiratory - 7-% I/O = ois 4 L VENT SETTINGS and ABG reviewed Sedation: RASS discussed with RN , - IV Fentany @ 50 and Propofol @ 20 , TG's 137, also on IV Precedex @ 1.0 NOT CANDIDATE for SBTreviewed possible contraindications including Cardiovascular Stability /Sedation Score / FI02/PEEP / ABG / CXR/ secretions Drips: Pressors- no Consultants: Hospital course: (03/12) 61M Admitted for COPD/CHF, bronchitis. Hypercapenic. ?NSTEMI. INTUBATED in ICU (03/17) EXTUBATED AND REINTUBATED. Worsening pulmonary edema. (03/21) Needs KUB. Cannot do d/t weight. Surgery consulted. (03/22) EXTUBATED AND THEN REINTUBATED. Hypertensive (03/24) Large ngt output, tf on hold. 03/26-AC 26/Vt 500/FiO2 55%/ (03/26) s/p tracheostomy and PEG, TPN started 04/02- issues with returned volumes on vent - VENT CHANGED - doing well 04/03- STARTING vanco and Zosyn , CT abd -No significant abnormality in the abdomen or pelvis is identified. a -line removed 04/05- fever 38, NEW CX POSITIVE FOR PRESUMED ENTEROCOCCUS _ WILL REMOVE LINE < REPEAT CX , EXPAMD ABX COVERAGE UNTIL FINAL ID KNOWN 04/06= increased need for fio2 from 30% to 100% , slowly overnigh. TF were stopped with suspected emesis/aspiration 04/07-04/07- Fio2 80% peep 10 , levo 04/08-70 % OFF LEVO, GAEL worsenig Cr 2.1 . - 30% , resumed TF ,04/09 OFF ABX , -on precedex ONLY - A/P Acute resp failure - s/p ETT 03/12 , has been extubated x 2, reintubated on 03/22, TRACH 03/26 = on 30% with peep 18 GAEL 04/06- WORSENING - hold diuretics Hypernatremia - with diuresis , IVF stopped - getting h20 in TF - TO increase h2O Suspected sepsis , -Hypotension . - ? volume shift after agressive diureis - responded to albumin , -sepsis w/up sent 04/02 while OFF ABX ( z max dose for GI motility ) 04/03-STARTING vanco and Zosyn, CT abd done 04/03 cx from post x2 - Coag + staph - to repeat peripheral cx 04/05- fever 38, NEW CX POSITIVE FOR PRESUMED ENTEROCOCCUS - REMOVED LINE 04/06 - suspected aspiration , increased WBC LEVO gtt 04/07 - off levo 04/09 OFF ABX Shock -RESOVED - suspected sepsis - 04/07- OFF pressors Ac systolic CHF. CAD - echo on 03/12/22: LVEF 35-40%, mod diffuse hypokinesis of LV - as per cards COPD suspercted - acute on chronic exacerbation - not on steroid , cont nebs Anemia 03/26 - Hb drop 3 g - follow , no acute bleeding - stable HB Delirium - CONT FENTANYL PATCH AND ATIVAN PRN -on precedex ONLY - improving DM - ISS to adjust s/pPEG 03/26 -04/03-eveloped mild brownish drainage per PEG exit site. 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 Discussed with RN to reach out if any questions or concerns A total of 31 minutes of critical care time was devoted to this patient today, required to treat and/or prevent further deterioration of critical care condition ( as above ) . Sepsis Event Evaluation Height, Weight, BMI Height: '" Weight: lbs. oz. kg; 45.41 BMI Method: Exam Exam Patient acknowledged, consented, and participated in this virtual visit which was conducted using real time audio/video Vital Signs Date Time Temp Pulse Resp B/P (MAP) Pulse Ox O2 Delivery O2 Flow Rate FiO2 04/09/22 12:45 66 04/09/22 12:31 72 115/73 04/09/22 12:05 66 110/66 04/09/22 12:00 96 Mechanical Ventilator 30 04/09/22 12:00 30 04/09/22 12:00 36.2 04/09/22 12:00 66 16 110/66 (81) 95 Mechanical Ventilator 30.00 04/09/22 11:20 Mechanical Ventilator 30.00 04/09/22 11:01 72 17 95 30 04/09/22 11:00 61 16 115/73 (87) 95 Mechanical Ventilator 30.00 04/09/22 10:26 68 103/61 04/09/22 10:00 68 16 103/61 (75) 96 Mechanical Ventilator 30.00 04/09/22 09:00 86 12 140/76 (97) 97 Mechanical Ventilator 30.00 04/09/22 08:05 92 155/96 04/09/22 08:00 30 04/09/22 08:00 96 Mechanical Ventilator 30 04/09/22 08:00 96 17 112/97 (102) 97 Mechanical Ventilator 30.00 04/09/22 07:31 96 20 96 30 04/09/22 07:31 36.3 04/09/22 07:27 92 04/09/22 07:20 95 19 97 30 04/09/22 07:00 93 27 153/90 (111) 98 Mechanical Ventilator 30.00 04/09/22 06:00 93 18 144/74 (97) 98 Mechanical Ventilator 30.00 04/09/22 05:00 96 16 138/74 (95) 97 Mechanical Ventilator 30.00 04/09/22 04:00 Mechanical Ventilator 30.00 04/09/22 04:00 100 Mechanical Ventilator 30 04/09/22 04:00 79 15 134/79 (97) 99 Mechanical Ventilator 40.00 04/09/22 04:00 30 04/09/22 03:28 Mechanical Ventilator 40.00 04/09/22 03:28 85 139/75 04/09/22 03:14 36.6 Mechanical Ventilator 50.00 04/09/22 03:04 85 17 99 50 04/09/22 03:00 87 24 139/75 (96) 99 Mechanical Ventilator 50.00 04/09/22 02:14 Mechanical Ventilator 50.00 04/09/22 02:00 89 18 132/73 (92) 100 Mechanical Ventilator 60.00 04/09/22 01:18 60 04/09/22 01:00 89 26 104/80 (88) 100 Mechanical Ventilator 60.00 04/09/22 01:00 91 04/09/22 00:41 36.7 Mechanical Ventilator 60.00 04/09/22 00:40 90 153/90 04/09/22 00:38 90 153/90 04/09/22 00:30 100 Mechanical Ventilator 60 04/09/22 00:00 60 04/09/22 00:00 90 24 153/90 (111) 100 Mechanical Ventilator 70.00 04/08/22 23:00 69 14 127/79 (95) 100 Mechanical Ventilator 70.00 04/08/22 22:56 81 17 100 70 04/08/22 22:00 84 21 114/67 (83) 93 Mechanical Ventilator 70.00 04/08/22 21:00 85 18 112/65 (81) 93 Mechanical Ventilator 70.00 04/08/22 20:34 91 106/62 04/08/22 20:00 91 Mechanical Ventilator 70 04/08/22 20:00 87 16 110/66 (81) 92 Mechanical Ventilator 70.00 04/08/22 20:00 70 04/08/22 20:00 36.6 04/08/22 19:12 91 20 92 70 04/08/22 19:00 Mechanical Ventilator 70.00 04/08/22 19:00 87 17 115/63 (80) 93 Mechanical Ventilator 70.00 04/08/22 19:00 87 04/08/22 18:00 88 13 108/61 (77) 92 Mechanical Ventilator 70.00 04/08/22 17:00 89 14 107/59 (75) 92 Mechanical Ventilator 70.00 04/08/22 16:08 37.2 04/08/22 16:07 89 111/62 04/08/22 16:00 70 04/08/22 16:00 89 14 111/62 (78) 92 Mechanical Ventilator 70.00 04/08/22 16:00 92 Mechanical Ventilator 70 04/08/22 15:54 37.2 04/08/22 15:12 86 19 91 70 04/08/22 15:00 87 20 109/60 (76) 92 Mechanical Ventilator 70.00 04/08/22 14:45 86 113/61 04/08/22 14:00 85 11 110/62 (78) 94 Mechanical Ventilator 70.00 04/08/22 13:00 83 15 104/62 (76) 93 Mechanical Ventilator 70.00 I & O 04/09/22 07:00 Intake Total 2403.5 ml Output Total 2350 ml Balance 53.5 ml Height & Weight Height: '" Weight: lbs. oz. kg; 45.41 BMI Method: General Appearance: No Apparent Distress, Chronically ill, Obese HEENT: TMs Normal Neck: Other (trach) Respiratory: Decreased Breath Sounds, Other (on vent) Cardiovascular: Regular Rate, Rhythm, No Murmur Capillary Refill: Less Than 3 Seconds Peripheral Pulses: 2+ Dorsalis Pedis (R), 2+ Left Dors-Pedis (L) Gastrointestinal: normal bowel sounds, soft, other (peg intact and functional, no redness/erythema) Extremity: Normal Inspection, Pedal Edema Neurologic/Psychiatric: Alert, Other (moves arms when spoken to, when I asked to squeeze hand he attempted but fought against the restraint on arm) Skin: Normal Color, Warm/Dry Lymphatic: No Adenopathy Results Lab Laboratory Tests 04/08/22 09:39 04/09/22 04:18 Assessment/Plan Assessment/Plan 1 MILAGROS HUBER MD Apr 09, 2022 13:01
[2022-04-09] MEDS: hydrALAZINE (APESOLINE) 20 MG/ML VIAL IV PRN (20:45)
[2022-04-09] MEDS: ALPRAZolam 1 MG (XANAX) TAB PO PRN (21:33)
[2022-04-10] MEDS: PROPOFOL DRIP (ICU) 100 ML IV SCH ×5 (01:37→21:13)
[2022-04-10] MEDS: DexMEDEtomidine 250 ML DRIP 250 ML IV SCH ×4 (01:44→20:01)
[2022-04-10] MEDS: hydrALAZINE (APESOLINE) 20 MG/ML VIAL IV PRN ×4 (01:45→17:54)
[2022-04-10] MEDS: LORazepam INJ 2 MG/ML (ATIVAN) VIAL IVP PRN ×2 (01:45→15:54)
[2022-04-10 02:31] VITALS: BP 154/54
[2022-04-10] MEDS: RT-ALBUTEROL/IPRATROPIUM 3 ML (DUONEB) VIAL INH SCH ×6 (02:31→23:23)
[2022-04-10] MEDS: ACETAMINOPHEN 325 MG TABLET PO PRN (02:40)
[2022-04-10] MEDS: inSUlin ASPART (NovoLOG) 1 UNIT/0.01 ML (CHARGE PER UNIT) SC SCH ×7 (03:13→20:35)
[2022-04-10] MEDS: fentaNYL DRIP PRE-MIX 250 ML IV SCH (05:03)
[2022-04-10] MEDS: NOREPINEPHRINE 8 MG/250 ML 250 ML IV SCH ×3 (05:03→19:42)
[2022-04-10 05:39] LABS: BASOPHILS % (AUTO) 0 % (0-10); EOSINOPHILS # (AUTO) 0.2 10^3/uL (0.0-0.3); EOSINOPHILS % (AUTO) 2 % (0-10); HEMATOCRIT 31 % (40-54); LYMPHOCYTES # (AUTO) 1.6 10^3/uL (1.0-4.0); LYMPHOCYTES % (AUTO) 17 % (12-44); MEAN CORPUSCULAR HEMOGLOBIN 32 pg (25-34); MEAN CORPUSCULAR HGB CONC 32 g/dL (32-36); MEAN CORPUSCULAR VOLUME 99 fL (80-99); MEAN PLATELET VOLUME 11.1 fL (9.0-12.2); MONOCYTES # (AUTO) 0.4 10^3/uL (0.0-1.0); MONOCYTES % (AUTO) 4 % (0-12); NEUTROPHILS # (AUTO) 7.1 10^3/uL (1.8-7.8); NEUTROPHILS % (AUTO) 72 % (42-75); PLATELET COUNT 394 10^3/uL (130-400); WHITE BLOOD COUNT 9.8 10^3/uL (4.3-11.0)
[2022-04-10 05:59] LABS: CALCIUM 8.1 MG/DL (8.5-10.1); CREATININE SERUM 1.54 MG/DL (0.60-1.30); MAGNESIUM 2.9 MG/DL (1.6-2.4); PHOSPHORUS 2.4 MG/DL (2.3-4.7); POTASSIUM 3.6 MMOL/L (3.6-5.0)
[2022-04-10] MEDS: POTASSIUM CL 10MEQ/50ML IVPB 50 ML IV SCH ×2 (06:07→06:16)
[2022-04-10] MEDS: KCL 20 MEQ TAB (K-DUR) PO SCH (06:07)
[2022-04-10] MEDS: MAGNESIUM 1 GM/100 ML IVPB 100 ML IV SCH (06:07)
[2022-04-10 07:14] VITALS: BP 105/68
[2022-04-10] MEDS: PANTOPRAZOLE 40 MG (PROTONIX) VIAL IV SCH (08:25)
[2022-04-10] MEDS: SPIRONOLACTONE 25 MG (ALDACTONE) TAB PO SCH (08:26)
[2022-04-10] MEDS: ASPIRIN 81 MG CHEW (CHILDREN'S ASA) PO SCH (08:26)
[2022-04-10] MEDS: CLOPIDOGREL 75 MG (PLAVIX) TABLET PO SCH (08:26)
[2022-04-10] MEDS: meTOprolol TARTRATE 25 MG (LOPRESSOR) TABLET PEG SCH ×2 (08:26→20:35)
[2022-04-10] MEDS: LACRI-LUBE OPTHALMIC OINT 3.5 GM TUBE OU SCH ×3 (08:27→20:36)
[2022-04-10] MEDS: fentaNYL INJ 100 MCG/2 ML AMP IVP PRN ×6 (08:27→19:34)
[2022-04-10] MEDS: cloNIDine 0.1 MG (CATAPRES) TAB PO SCH ×3 (08:27→20:35)
[2022-04-10] MEDS: niCARdipine IV (Pyxis drip kit 50 MG in NS (IVPB) 230 ML IV SCH ×2 (08:27→17:31)
--- NOTE | 2022-04-10 08:53 | Physical Therapy Evaluation ---
PT Evaluation-General Medical Diagnosis Admission Date Mar 11, 2022 at 21:37 Medical Diagnosis: Acute hypercapnic and hypoxic respiratory failure Onset Date: Mar 11, 2022 Therapy Diagnosis Therapy Diagnosis: impaired mobility, strength Precautions Precautions/Isolations: Aspiration, Standard Precautions Referral Physician: Aaron Reason for Referral: Evaluation/Treatment Social History patient unable to communicate Prior Prior Level of Function SCALE: Activities may be completed with or without assistive devices. 4-Nkrumgzzsl-ynlrrao completes the activity by him/herself with no assistance from a helper. 5-Set-up or Clean-up Assistance-helper sets up or cleans up; patient completes activity. [place] assists only prior to or following the activity. 4-Supervision or Touching Assistance-helper provides verbal cues and/or touching/steadying and/or contact guard assistance as patient completes activity. Assistance may be provided throughout the activity or intermittently. 3-Partial/Moderate Assistance-helper does LESS THAN HALF the effort. [place] lifts, holds or supports trunk or limbs, but provides less than half the effort. 2-Substantial/Maximal Assistance-helper does MORE THAN HALF the effort. [place] lifts or holds trunk or limbs and provides more than half the effort. 0-Gzizguhtd-vkpvda does ALL the effort. Patient does none of the effort to complete the activity. Or, the assistance of 2 or more helpers is required for the patient to complete the activity. If activity was not attempted, code reason: 7-Patient Refused. 9-Not Applicable-not attempted and the patient did not perform the activity before the current illness, exacerbation or injury. 10-Not Attempted due to Environmental Limitations-(lack of equipment, weather restraints, etc.). 88-Not Attempted due to Medical Conditions or Safety Concerns. unknown PT Evaluation-Current Subjective Patient in bed pre tx, on a mechanical ventilator, has trach. Patient will not open eyes or try to communicate. Nurse states patient is ready and needs physical therapy so will assess. Pt/Family Goals none stated Objective Patient Orientation: Unresponsive Treatment BLE ROM, just gentle ROM. Patient opens mouth as to yell or scream with movement but has a trach so no sound. Nurse notified. Patient doesn't appear to have any contractures at this point, just pain with very minor movement. Assessment/Needs Patient in bed post tx with nurse call, phone, tray, all needs met. Patient has impaired mobility and strength. Coordinate with nurse next time to give patient pain meds before any movement or ROM. Progress with ROM if patient tolerates it and hopefully to some functional mobility. If patient cannot participate in his physical therapy after a few days we will discharge. Rehab Potential: Poor PT Usp Goals Usp Goals PT Accounts Payable Lead Goals Time Frame: Apr 17, 2022 Roll Left & Right (QC): 2 Sit to Lying (QC): 2 Lying-Sitting on Side/Bed(QC): 2 PT Plan Problem List Problem List: Activity Tolerance, Functional Strength, Safety, Balance, Gait, Transfer, Bed Mobility, ROM Treatment/Plan Treatment Plan: Continue Plan of Care Treatment Plan: Bed Mobility, Education, Functional Activity Sarah, Functional Strength, Gait, Safety, Therapeutic Exercise, Transfers Treatment Duration: Apr 17, 2022 Frequency: 6 times per week Estimated Hrs Per Day: .25 hour per day Patient and/or Family Agrees t: Yes Safety Risks/Education Patient Education: Correct Positioning, Safety Issues Teaching Recipient: Patient Teaching Methods: Discussion Response to Teaching: Unable to Comprehend, Reinforcement Needed Discharge Recommendations Plan Patient will perform bed mobility and transfer training, balance and endurance training, functional strengthening, gait training, and education, to improve functional mobility and independence at home. Therapy Discharge Recommendati: 24 Hour Supervision, Other, See Comments (NH) Time Time In: 812 Time Out: 820 DATE: Apr 10, 2022 Total Billed Treatment Time: 8 Total Billed Treatment 1 visit NILSA HAN PT Apr 10, 2022 08:53
[2022-04-10] MEDS ORDERED: HYDROcodone/APAP 5 MG/325 MG (LORTAB) TAB PEG PRN (09:00)
[2022-04-10] MEDS ORDERED: FUROSEMIDE 40 MG/4 ML INJ (LASIX) IVP SCH (09:00)
--- NOTE | 2022-04-10 09:41 | Progress Note - Hospitalist ---
Subjective HPI/CC On Admission Date Seen by Provider: Apr 10, 2022 Patient is a 61-year-old -Y[place] male with past medical history of coronary artery disease, hypertension, hyperlipidemia,, COPD who presented to the emergency department due to hypoxia and chest pain. He was seen at the walk-in clinic at [facility] today and complained of chest pain to them and he was referred to the emergency department. He has been seen in the ER mul tiple times in the past week or so but has declined most work-up at those visits. This visit he did allow for labs and x-ray which revealed an NSTEMI. He was admitted for further management. Unfortunately overnight his respiratory status worsened and he required intubation. He is unable to provide me any history due to this and thus all history was obtained from the records. Subjective/Events-last exam Pt doing better today. Weaning down precedex. Was able to work with PT today. Objective Exam Vital Signs Vital Signs Date Time Temp Pulse Resp B/P (MAP) Pulse Ox O2 Delivery O2 Flow Rate FiO2 04/10/22 08:27 84 103/63 04/10/22 08:25 37.1 04/10/22 08:00 24 92 Mechanical Ventilator 21.00 04/10/22 07:14 30 Capillary Refill : Less Than 3 Seconds General Appearance: Chronically ill, Obese Respiratory: Lungs Clear, No Respiratory Distress Cardiovascular: Regular Rate, Rhythm, No Murmur Gastrointestinal: Normal Bowel Sounds, Non Tender, Soft Neurologic/Psychiatric: Alert, Oriented x3 Results/Procedures Lab Laboratory Tests 04/10/22 05:30 Patient resulted labs reviewed. Imaging: Reviewed Imaging Report Assessment/Plan Assessment and Plan Assess & Plan/Chief Complaint Acute hypercapnic and hypoxic respiratory failure COPD exacerbation with lower respiratory tract infection Acute HFrEF Septic shock Possible bacteremia- homero contaminant GAEL- stable Colocutaneous fistula Trach/PEG 03/[address] Lopez stool surrounding PEG site- I discussed with Dr Lopez on 04/09 and reports stable and conservative management and once PEG able to be removed it should heal TeleICU following Ventilator requirement- 21% FiO2 Kidney function improving Blood cultures 04/03 positive for Staph epi, Enterococcus Catheter tip culture positive for Staph epi Staph epi from blood cultures, catheter tip, and repeat blood culture with different susceptibilites, likely all contaminants PICC removed, replaced Repeat cultures 04/04 with no growth Continue Vanc Only on precedex gtt, doing well- decrease as well Worked with PT this morning T2DM with hyperglycemia Levemir 22 units HS Novolog Sliding scale insulin Hypernatremia Free water boluses restarted with tube feeds HTN Well controlled NSTEMI CAD HLD Likely Type II Cardiology following ASA and Plavix Echo with EF of 35% Goals of care discussion Poor prognosis DNR DVT prophylaxis: Lovenox Referral sent to [facility] in [place] and awaiting insurance authorization Critical Care Critically Ill Patient Diagnosis/Problems Diagnosis/Problems (1) Acute respiratory failure Status: Acute Qualifiers: Respiratory failure complication: hypoxia and hypercapnia Qualified Codes: J96.01 - Acute respiratory failure with hypoxia; J96.02 - Acute respiratory fa ilure with hypercapnia (2) CAD (coronary artery disease) Qualifiers: Coronary Disease-Associated Artery/Lesion type: unspecified vessel or lesion type [place] vs. transplanted heart: unspecified whether [place] or transplanted heart Associated angina: unspecified whether angina present Qualified Codes: I25.10 - Atherosclerotic heart disease of [place] coronary artery without angina pectoris (3) COPD (chronic obstructive pulmonary disease) Status: Acute Qualifiers: COPD type: COPD with acute lower respiratory infection Qualified Codes: J44.0 - Chronic obstructive pulmonary disease with (acute) lower respiratory infection (4) Essential (primary) hypertension Status: Chronic (5) HLD (hyperlipidemia) Status: Chronic Qualifiers: Hyperlipidemia type: unspecified Qualified Codes: E78.5 - Hyperlipidemia, unspecified (6) COPD with acute bronchitis Status: Acute JAIRO MURILLO MD Apr 10, 2022 09:40
[2022-04-10] MEDS: ALPRAZolam 1 MG (XANAX) TAB PO PRN (10:43)
[2022-04-10] MEDS: ENOXAPARIN 40 MG/0.4 ML (LOVENOX) SYR SQ SCH (10:44)
[2022-04-10 10:59] VITALS: BP 154/87
--- NOTE | 2022-04-10 11:03 | Tele-ICU Progress Note ---
Subjective Date Seen by a Provider: Apr 10, 2022 Time Seen by a Provider: 11:02 Subjective/Events-last exam (Tele-ICU Physician , Progress Note ) Service provided via interactive audio and video telecommunications E-CARE system to a patient admitted to ICU bed in [facility]. Available chart/ vitals / labs / Images reviewed Video assessment done using teleICU camera, rest of exam as per RN Discussed with RN Events overnight : FEBRILE 37.6 hemodynamically stable Respiratory - 7-% I/O = ois 4 L VENT SETTINGS and ABG reviewed Sedation: RASS discussed with RN on IV Precedex @ 1.0 NOT CANDIDATE for SBTreviewed possible contraindications including Cardiovascular Stability /Sedation Score / FI02/PEEP / ABG / CXR/ secretions Drips: Pressors- no Consultants: Hospital course: (03/12) 61M Admitted for COPD/CHF, bronchitis. Hypercapenic. ?NSTEMI. INTUBATED in ICU (03/17) EXTUBATED AND REINTUBATED. Worsening pulmonary edema. (03/21) Needs KUB. Cannot do d/t weight. Surgery consulted. (03/22) EXTUBATED AND THEN REINTUBATED. Hypertensive (03/24) Large ngt output, tf on hold. 03/26-AC 26/Vt 500/FiO2 55%/ (03/26) s/p tracheostomy and PEG, TPN started 04/02- issues with returned volumes on vent - VENT CHANGED - doing well 04/03- STARTING vanco and Zosyn , CT abd -No significant abnormality in the abdomen or pelvis is identified. a -line removed 04/05- fever 38, NEW CX POSITIVE FOR PRESUMED ENTEROCOCCUS _ WILL REMOVE LINE < REPEAT CX , EXPAMD ABX COVERAGE UNTIL FINAL ID KNOWN 04/06= increased need for fio2 from 30% to 100% , slowly overnigh. TF were stopped with suspected emesis/aspiration 04/07-04/07- Fio2 80% peep 10 , levo 04/08-70 % OFF LEVO, GAEL worsenig Cr 2.1 . - 30% , resumed TF ,04/09 OFF ABX , -on precedex ONLY - A/P Acute resp failure - s/p ETT 03/12 , has been extubated x 2, reintubated on 03/22, TRACH 03/26 = on 21 % with peep 5 GAEL 04/06- WORSENING - hold diuretics Hypernatremia - with diuresis , IVF stopped - getting h20 in TF - TO increase h2O Suspected sepsis , -Hypotension . - ? volume shift after agressive diureis - responded to albumin , -sepsis w/up sent 04/02 while OFF ABX ( z max dose for GI motility ) 04/03-STARTING vanco and Zosyn, CT abd done 04/03 cx from post x2 - Coag + staph - to repeat peripheral cx 04/05- fever 38, NEW CX POSITIVE FOR PRESUMED ENTEROCOCCUS - REMOVED LINE 04/06 - suspected aspiration , increased WBC LEVO gtt 04/07 - off levo 04/09 OFF ABX Shock -RESOVED - suspected sepsis - 04/07- OFF pressors Ac systolic CHF. CAD - echo on 03/12/22: LVEF 35-40%, mod diffuse hypokinesis of LV - as per cards COPD suspercted - acute on chronic exacerbation - not on steroid , cont nebs Anemia 03/26 - Hb drop 3 g - follow , no acute bleeding - stable HB Delirium - CONT FENTANYL PATCH AND ATIVAN PRN -on precedex ONLY - improving DM - ISS to adjust s/pPEG 03/26 -04/03-eveloped mild brownish drainage per PEG exit site. 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 which is contained and no intraperitoneal leakage per recent CT scan- as per SX - TF and advance as tolerated - @ 30cc/h - on reglan and Z-max 100 for motility Lines : triple PICC - placed on 03/13 , on 04/03 cx from post x2 - Coag + staph - to repeat peripheral cx , 04/05 NEW CX POSITIVE FOR PRESUMED ENTEROCOCCUS L= REMOVED LINE, midlaine placed Jenkins: + CHANGE D106/06 OG: Nutrition: TPN and TF Analgesia: Anxiety/ delirium VTE Prophylaxis: viktoria 40 Stress Ulcer Prophylaxis: PPI Plans in collaboration with bedside consultants and IM MDs. Discussed with RN to reach out if any questions or concerns A total of 31 minutes of critical care time was devoted to this patient today, required to treat and/or prevent further deterioration of critical care condition ( as above ) . Sepsis Event Evaluation Height, Weight, BMI Height: '" Weight: lbs. oz. kg; 45.30 BMI Method: Exam Exam Patient acknowledged, consented, and participated in this virtual visit which was conducted using real time audio/video Vital Signs Date Time Temp Pulse Resp B/P (MAP) Pulse Ox O2 Delivery O2 Flow Rate FiO2 04/10/22 10:59 103 23 94 21 04/10/22 10:00 86 19 163/88 (113) 95 Mechanical Ventilator 21.00 04/10/22 09:00 80 37 142/91 (108) 94 Mechanical Ventilator 21.00 04/10/22 08:27 84 103/63 04/10/22 08:25 37.1 04/10/22 08:10 96 Mechanical Ventilator 30 04/10/22 08:00 30 04/10/22 08:00 84 24 103/63 (76) 92 Mechanical Ventilator 21.00 04/10/22 07:46 36.8 04/10/22 07:30 Mechanical Ventilator 21.00 04/10/22 07:14 88 22 96 30 04/10/22 07:00 89 17 113/65 (81) 96 Mechanical Ventilator 30.00 04/10/22 07:00 89 04/10/22 06:15 112 154/54 04/10/22 06:15 112 154/54 04/10/22 06:00 86 20 112/61 (78) 96 Mechanical Ventilator 30.00 04/10/22 05:03 112 154/54 04/10/22 05:00 81 20 105/63 (77) 94 Mechanical Ventilator 30.00 04/10/22 04:00 95 Mechanical Ventilator 30 04/10/22 04:00 30 04/10/22 04:00 92 17 109/66 (80) 94 Mechanical Ventilator 30.00 04/10/22 03:13 37.9 04/10/22 03:00 96 20 118/73 (88) 95 Mechanical Ventilator 30.00 04/10/22 02:48 38.3 Mechanical Ventilator 30.00 04/10/22 02:40 38.3 04/10/22 02:31 112 25 96 30 04/10/22 02:00 111 27 155/83 (107) 98 Mechanical Ventilator 30.00 04/10/22 01:44 92 127/72 04/10/22 01:00 85 20 175/98 (123) 97 Mechanical Ventilator 30.00 04/10/22 01:00 85 04/10/22 00:00 92 19 127/72 (90) 96 Mechanical Ventilator 30.00 04/10/22 00:00 96 Mechanical Ventilator 30 04/10/22 00:00 30 04/09/22 23:43 99 171/84 04/09/22 23:13 37.2 Mechanical Ventilator 30.00 04/09/22 23:00 99 28 171/84 (113) 96 Mechanical Ventilator 30.00 04/09/22 22:29 103 23 96 30 04/09/22 22:00 105 15 172/89 (116) 96 Mechanical Ventilator 30.00 04/09/22 21:00 94 19 173/83 (113) 96 Mechanical Ventilator 30.00 04/09/22 20:05 30 04/09/22 20:05 98 Mechanical Ventilator 30 04/09/22 20:00 78 23 162/85 (110) 97 Mechanical Ventilator 30.00 04/09/22 19:42 36.9 Mechanical Ventilator 30.00 04/09/22 19:33 84 182/104 04/09/22 19:10 84 182/104 04/09/22 19:04 84 19 97 30 04/09/22 19:00 78 22 178/88 (118) 99 Mechanical Ventilator 30.00 04/09/22 19:00 81 04/09/22 18:00 63 16 152/85 (107) 94 Mechanical Ventilator 30.00 04/09/22 17:05 73 172/99 04/09/22 17:00 73 22 172/99 (123) 97 Mechanical Ventilator 30.00 04/09/22 16:00 30 04/09/22 16:00 76 24 139/79 (99) 96 Mechanical Ventilator 30.00 04/09/22 16:00 96 Mechanical Ventilator 30 04/09/22 15:47 36.5 04/09/22 15:00 75 24 125/69 (87) 98 Mechanical Ventilator 30.00 04/09/22 14:32 80 127/77 04/09/22 14:30 Mechanical Ventilator 30.00 04/09/22 14:26 76 19 98 30 04/09/22 14:00 75 14 122/65 (84) 97 Mechanical Ventilator 30.00 04/09/22 13:05 80 127/77 04/09/22 13:00 75 16 126/77 (93) 97 Mechanical Ventilator 30.00 04/09/22 12:45 66 04/09/22 12:31 72 115/73 04/09/22 12:05 66 110/66 04/09/22 12:00 96 Mechanical Ventilator 30 04/09/22 12:00 30 04/09/22 12:00 36.2 04/09/22 12:00 66 16 110/66 (81) 95 Mechanical Ventilator 30.00 04/09/22 11:20 Mechanical Ventilator 30.00 I & O 04/10/22 07:00 Intake Total 3618 ml Output Total 2600 ml Balance 1018 ml Height & Weight Height: '" Weight: lbs. oz. kg; 45.30 BMI Method: General Appearance: Chronically ill, Obese HEENT: TMs Normal Neck: Other (trach) Respiratory: Lungs Clear, No Respiratory Distress Cardiovascular: Regular Rate, Rhythm, No Murmur Capillary Refill: Less Than 3 Seconds Peripheral Pulses: 2+ Dorsalis Pedis (R), 2+ Left Dors-Pedis (L) Gastrointestinal: normal bowel sounds, soft, other (peg intact and functional, no redness/erythema) Extremity: Normal Inspection, Pedal Edema Neurologic/Psychiatric: Alert, Oriented x3 Skin: Normal Color, Warm/Dry Lymphatic: No Adenopathy Results Lab Laboratory Tests 04/09/22 04:18 04/10/22 05:30 Assessment/Plan Assessment/Plan 1 MILAGROS HUBER MD Apr 10, 2022 11:03
[2022-04-10] MEDS: METOCLOPRAMIDE INJ 10 MG/2 ML (REGLAN) IVP SCH (11:47)
[2022-04-10] MEDS ORDERED: FENTANYL PATCH REMOVAL TP SCH (11:59)
[2022-04-10] MEDS ORDERED: fentaNYL PATCH 75 MCG (DURAGESIC) TOP SCH (12:00)
--- NOTE | 2022-04-10 12:21 | Cardiology Progress Note ---
Subjective Date Seen by Provider: Apr 10, 2022 Time Seen by Provider: 12:20 Subjective/Events-last exam Patient sedated and intubated Objective-Cardiology Exam Last Set of Vital Signs Vital Signs 04/10/22 04/10/22 15:59 16:34 Temp 36.5 Pulse Ox 94 O2 Delivery Mechanical Ventilator FiO2 21 I&O Intake and Output 04/10/22 00:00 Intake Total 2972 ml Output Total 2775 ml Balance 197 ml Intake Oral 0 ml IV Total 250 ml Tube Feeding 632 ml Other 2090 ml Output Urine Total 2775 ml General: Other (Sedated and intubated) HEENT: Atraumatic Neck: Supple, No JVD Heart: Regular Rate Abdomen: Normal Bowel Sounds Extremities: No Clubbing, No Cyanosis Skin: No Rashes, No Breakdown Neuro: Other (Sedated and intubated) Psych/Mental Status: Other (Sedated and intubated) Results Lab Laboratory Tests 04/10/22 05:30 A/P-Cardiology Admission Diagnosis Ventilator dependent respiratory failure Type II myocardial infarction Coronary artery disease Congestive heart failure, acute on chronic left ventricular systolic dysfunction Assessment/Plan Ventilator dependent respiratory failure, failed multiple attempt for weaning Status post tracheostomy on March 26, 2022, PEG tube placement March 26, 2022 Possible transfer to long-term facility Congestive heart failure, acute left ventricular systolic dysfunction, ejection fraction 35 to 40% Holding diuretics now due to worsening renal function Acute renal insufficiency, History of chronic renal insufficiency stopping Lasix and lisinopril, will give 500 cc of saline bolus and monitor renal function Minimal troponin elevation, type II myocardial infarction secondary to hypoxemia. Coronary artery disease, history of stenting done in [facility] in November 2021. COPD with acute decompensation Diabetes mellitus, followed and managed by primary care physician Hyperlipidemia Morbid obesity. Supervisory-Addendum Brief Supervisory Addendum Participated in pt care: history, MDM, physical Personally performed: exam, history, MDM Care discussed with: RYDER Results interpretation: Verified all documentation Notes: Patient was seen and evaluated with Dann, examination performed, management plan was discussed, agree with the current scribed note, I made few changes to the note using Italic font Patient was seen at bedside, no change in mental status Still moving upper extremities, ventilator dependent I restarted Lasix 20 mg IV and will monitor tolerance and response DANN ARROYO Apr 10, 2022 12:21 PORSHA LEAL MD Apr 10, 2022 17:10
[2022-04-10] MEDS ORDERED: LABETALOL HCL 20 MG/4 ML VIAL IV ONE (14:45)
[2022-04-10 15:12] VITALS: BP 157/84
[2022-04-10] MEDS ORDERED: LABETALOL HCL 20 MG/4 ML VIAL IV PRN (18:15)
[2022-04-10 18:59] VITALS: BP 139/91
[2022-04-10] MEDS: NS IV 1000 ML 1,000 ML IV SCH (22:45)
[2022-04-10 23:20] VITALS: BP 120/71
[2022-04-11] MEDS: METOCLOPRAMIDE INJ 10 MG/2 ML (REGLAN) IVP SCH ×2 (00:12→11:41)
[2022-04-11] MEDS: ENOXAPARIN 40 MG/0.4 ML (LOVENOX) SYR SQ SCH ×2 (00:12→11:41)
[2022-04-11] MEDS: DexMEDEtomidine 250 ML DRIP 250 ML IV SCH ×3 (00:16→09:22)
[2022-04-11] MEDS: PROPOFOL DRIP (ICU) 100 ML IV SCH ×3 (02:06→06:07)
[2022-04-11 02:44] VITALS: BP 161/108
[2022-04-11] MEDS: RT-ALBUTEROL/IPRATROPIUM 3 ML (DUONEB) VIAL INH SCH ×4 (02:54→14:44)
[2022-04-11] MEDS: inSUlin ASPART (NovoLOG) 1 UNIT/0.01 ML (CHARGE PER UNIT) SC SCH ×6 (02:54→16:05)
[2022-04-11] MEDS: fentaNYL INJ 100 MCG/2 ML AMP IVP PRN ×2 (02:55→10:01)
[2022-04-11] MEDS: LORazepam INJ 2 MG/ML (ATIVAN) VIAL IVP PRN ×2 (03:06→09:51)
[2022-04-11] MEDS: niCARdipine IV (Pyxis drip kit 50 MG in NS (IVPB) 230 ML IV SCH ×2 (03:15→13:39)
[2022-04-11] MEDS: NOREPINEPHRINE 8 MG/250 ML 250 ML IV SCH ×2 (03:39→13:48)
[2022-04-11] MEDS: fentaNYL DRIP PRE-MIX 250 ML IV SCH (04:15)
[2022-04-11 05:18] LABS: BASOPHILS % (AUTO) 0 % (0-10); EOSINOPHILS # (AUTO) 0.1 10^3/uL (0.0-0.3); EOSINOPHILS % (AUTO) 1 % (0-10); HEMATOCRIT 35 % (40-54); HEMOGLOBIN 11.2 g/dL (13.3-17.7); LYMPHOCYTES # (AUTO) 0.6 10^3/uL (1.0-4.0); LYMPHOCYTES % (AUTO) 7 % (12-44); MEAN CORPUSCULAR HEMOGLOBIN 32 pg (25-34); MEAN CORPUSCULAR HGB CONC 32 g/dL (32-36); MEAN CORPUSCULAR VOLUME 99 fL (80-99); MEAN PLATELET VOLUME 11.2 fL (9.0-12.2); MONOCYTES # (AUTO) 0.1 10^3/uL (0.0-1.0); MONOCYTES % (AUTO) 1 % (0-12); NEUTROPHILS # (AUTO) 8.3 10^3/uL (1.8-7.8); NEUTROPHILS % (AUTO) 89 % (42-75); PLATELET COUNT 340 10^3/uL (130-400); WHITE BLOOD COUNT 9.3 10^3/uL (4.3-11.0)
[2022-04-11 05:26] LABS: POTASSIUM 4.4 MMOL/L (3.6-5.0)
[2022-04-11 05:31] LABS: CREATININE SERUM 1.59 MG/DL (0.60-1.30); PHOSPHORUS 3.1 MG/DL (2.3-4.7)
[2022-04-11 05:33] LABS: MAGNESIUM 2.6 MG/DL (1.6-2.4)
[2022-04-11] MEDS: MAGNESIUM 1 GM/100 ML IVPB 100 ML IV SCH (06:00)
[2022-04-11] MEDS: KCL 20 MEQ TAB (K-DUR) PO SCH (06:00)
[2022-04-11] MEDS: POTASSIUM CL 10MEQ/50ML IVPB 50 ML IV SCH (06:00)
[2022-04-11 07:16] VITALS: BP 75/54
[2022-04-11] MEDS: CLOPIDOGREL 75 MG (PLAVIX) TABLET PO SCH (08:10)
[2022-04-11] MEDS: ASPIRIN 81 MG CHEW (CHILDREN'S ASA) PO SCH (08:10)
[2022-04-11] MEDS: PANTOPRAZOLE 40 MG (PROTONIX) VIAL IV SCH (08:11)
[2022-04-11] MEDS: LACRI-LUBE OPTHALMIC OINT 3.5 GM TUBE OU SCH ×2 (08:11→13:48)
[2022-04-11] MEDS: cloNIDine 0.1 MG (CATAPRES) TAB PO SCH ×2 (08:12→13:38)
--- NOTE | 2022-04-11 08:14 | Cardiology Progress Note ---
Subjective Date Seen by Provider: Apr 11, 2022 Time Seen by Provider: 08:09 Subjective/Events-last exam Patient is sedated, ventilator dependent. Had tachypnea and tachycardia last night required a higher sedation. Currently hypotensive. Review of Systems General: Other (Unable to provide review of system) Objective-Cardiology Exam Last Set of Vital Signs Vital Signs 04/10/22 04/11/22 04/11/22 19:58 06:00 07:16 Temp 36.8 Pulse 98 Resp 25 B/P (MAP) 107/59 (75) Pulse Ox 94 O2 Delivery Mechanical Ventilator O2 Flow Rate 25.00 FiO2 21 I&O Intake and Output 04/11/22 00:00 Intake Total 3390 ml Output Total 3350 ml Balance 40 ml Intake Oral 0 ml IV Total 850 ml Tube Feeding 740 ml Other 1800 ml Output Urine Total 3350 ml General: Other (Sedated and intubated) HEENT: Atraumatic Neck: Supple, No JVD Heart: Regular Rate Abdomen: Normal Bowel Sounds Extremities: No Clubbing, No Cyanosis Skin: No Rashes, No Breakdown Neuro: Other (Sedated and intubated) Psych/Mental Status: Other (Sedated and intubated) Results Lab Laboratory Tests 04/11/22 05:03 A/P-Cardiology Admission Diagnosis Ventilator dependent respiratory failure Type II myocardial infarction Coronary artery disease Congestive heart failure, acute on chronic left ventricular systolic dysfunction Assessment/Plan Ventilator dependent respiratory failure, failed multiple attempt for weaning Status post tracheostomy on March 26, 2022, PEG tube placement March 26, 2022 Possible transfer to long-term facility Congestive heart failure, acute left ventricular systolic dysfunction, ejection fraction 35 to 40% Holding diuretics now due to worsening renal function Acute renal insufficiency, History of chronic renal insufficiency stopping Lasix and lisinopril, continue to monitor renal function Patient has leak around the PEG tube. Managed by surgical team. Minimal troponin elevation, type II myocardial infarction secondary to hypoxemia. Coronary artery disease, history of stenting done in [facility] in November 2021. COPD with acute decompensation Diabetes mellitus, followed and managed by primary care physician Hyperlipidemia Morbid obesity. PORSHA LEAL MD Apr 11, 2022 08:14
[2022-04-11] MEDS: SPIRONOLACTONE 25 MG (ALDACTONE) TAB PO SCH (08:16)
[2022-04-11] MEDS: ALPRAZolam 1 MG (XANAX) TAB PO PRN (08:32)
[2022-04-11] MEDS: ACETAMINOPHEN 325 MG TABLET PO PRN (08:33)
[2022-04-11 08:38] LABS: ALBUMIN 2.2 GM/DL (3.2-4.5)
[2022-04-11] MEDS: meTOprolol TARTRATE 25 MG (LOPRESSOR) TABLET PEG SCH ×2 (09:22→10:03)
[2022-04-11] MEDS ORDERED: ALBUMIN 25% 25 GM/100 ML 100 ML IV ONE (10:00)
[2022-04-11 10:03] LABS: ABG BASE EXCESS -3.5 MMOL/L (-2.5-2.5); ABG OXYGEN SATURATION 95 % (94-100); ABG PCO2 35 MMHG (35-45); ABG PH 7.39 (7.37-7.43); ABG PO2 71 MMHG (79-93); ABG TCO2 21.7 MMOL/L (21.0-31.0); ALLENS TEST YES-POS; INSPIRED O2 25%; VENTILATOR NO
[2022-04-11 10:04] LABS: PATIENT TEMP 38.1
--- NOTE | 2022-04-11 10:08 | Physical Therapy Progress Note ---
Therapy Progress Note Patient is sedated again as well as intubated. Nurse states patient is on hold at this time also. Will check back tomorrow. NILSA GONZALEZ PT Apr 11, 2022 10:08
--- NOTE | 2022-04-11 10:53 | Tele-ICU Progress Note ---
Subjective Date Seen by a Provider: Apr 11, 2022 Time Seen by a Provider: 08:15 Subjective/Events-last exam (Tele-ICU Physician , Progress Note ) Service provided via interactive audio and video telecommunications E-CARE system to a patient admitted to ICU bed in [facility]. Available chart/ vitals / labs / Images reviewed Video assessment done using teleICU camera, rest of exam as per RN Discussed with RN Events overnight : FEBRILE 37.6 hemodynamically stable Respiratory - 7-% I/O = ois 4 L VENT SETTINGS and ABG reviewed Sedation: RASS discussed with RN on IV Precedex @ 1.0 NOT CANDIDATE for SBTreviewed possible contraindications including Cardiovascular Stability /Sedation Score / FI02/PEEP / ABG / CXR/ secretions Drips: Pressors- no Consultants: Hospital course: (03/12) 61M Admitted for COPD/CHF, bronchitis. Hypercapenic. ?NSTEMI. INTUBATED in ICU (03/17) EXTUBATED AND REINTUBATED. Worsening pulmonary edema. (03/21) Needs KUB. Cannot do d/t weight. Surgery consulted. (03/22) EXTUBATED AND THEN REINTUBATED. Hypertensive (03/24) Large ngt output, tf on hold. 03/26-AC 26/Vt 500/FiO2 55%/ (03/26) s/p tracheostomy and PEG, TPN started 04/02- issues with returned volumes on vent - VENT CHANGED - doing well 04/03- STARTING vanco and Zosyn , CT abd -No significant abnormality in the abdomen or pelvis is identified. a -line removed 04/05- fever 38, NEW CX POSITIVE FOR PRESUMED ENTEROCOCCUS _ WILL REMOVE LINE < REPEAT CX , EXPAMD ABX COVERAGE UNTIL FINAL ID KNOWN 04/06= increased need for fio2 from 30% to 100% , slowly overnigh. TF were stopped with suspected emesis/aspiration 04/07-04/07- Fio2 80% peep 10 , levo 04/08-70 % OFF LEVO, GAEL worsenig Cr 2.1 . - 30% , resumed TF ,04/09 OFF ABX , -on precedex ONLY - 04/10 - HTN , multiple PRNs 04/11 - hypotensive - check PCT A/P Acute resp failure - s/p ETT 03/12 , has been extubated x 2, reintubated on 03/22, TRACH 03/26 = on 21 % with peep 5 GAEL 04/06- stable - hold diuretics Hypernatremia - with diuresis , IVF stopped - getting h20 in TF - TO increase h2O Suspected sepsis , -Hypotension . - ? volume shift after agressive diureis - responded to albumin , -sepsis w/up sent 04/02 while OFF ABX ( z max dose for GI motility ) 04/03-STARTING vanco and Zosyn, CT abd done 04/03 cx from post x2 - Coag + staph - to repeat peripheral cx 04/05- fever 38, NEW CX POSITIVE FOR PRESUMED ENTEROCOCCUS - REMOVED LINE 04/06 - suspected aspiration , increased WBC LEVO gtt 04/07 - off levo 04/09 OFF ABX 04/11 - hypotensive - check PCT , colloids resuscitation - ? abd sourse Shock -RESOVED - suspected sepsis - 04/07- OFF pressors 04/11 - hypotensive again Ac systolic CHF. CAD - echo on 03/12/22: LVEF 35-40%, mod diffuse hypokinesis of LV - as per cards COPD suspercted - acute on chronic exacerbation - not on steroid , cont nebs Anemia 03/26 - Hb drop 3 g - follow , no acute bleeding - stable HB Delirium - CONT FENTANYL PATCH AND ATIVAN PRN -on precedex ONLY - improving DM - ISS to adjust s/pPEG 03/26 -04/03-eveloped mild brownish drainage per PEG exit site. 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 Discussed with RN to reach out if any questions or concerns A total of 35 minutes of critical care time was devoted to this patient today, required to treat and/or prevent further deterioration of critical care condition ( as above ) . Sepsis Event Evaluation Height, Weight, BMI Height: '" Weight: lbs. oz. kg; 45.24 BMI Method: Exam Exam Patient acknowledged, consented, and participated in this virtual visit which was conducted using real time audio/video Vital Signs Date Time Temp Pulse Resp B/P (MAP) Pulse Ox O2 Delivery O2 Flow Rate FiO2 04/11/22 10:14 123 24 93 25 04/11/22 10:00 138 44 177/92 (120) 94 Mechanical Ventilator 25.00 04/11/22 09:22 98 90/60 04/11/22 09:15 37.8 04/11/22 09:00 99 84/62 (69) 92 Mechanical Ventilator 25.00 04/11/22 08:33 38.1 04/11/22 08:18 38.1 04/11/22 08:00 37.1 04/11/22 08:00 98 90/60 (70) 91 Mechanical Ventilator 25.00 04/11/22 07:16 98 25 94 21 04/11/22 07:00 99 04/11/22 07:00 99 89/61 (70) 92 Mechanical Ventilator 25.00 04/11/22 06:00 105 36 107/59 (75) 93 Mechanical Ventilator 25.00 04/11/22 05:00 115 19 83/58 (66) 93 Mechanical Ventilator 25.00 04/11/22 04:31 Mechanical Ventilator 25.00 04/11/22 04:00 21 04/11/22 04:00 120 39 92/70 (77) 93 Mechanical Ventilator 21.00 04/11/22 04:00 92 Mechanical Ventilator 25 04/11/22 03:00 124 31 167/99 (121) 92 Mechanical Ventilator 21.00 04/11/22 02:44 130 28 97 21 04/11/22 02:00 91 12 161/108 (125) 92 Mechanical Ventilator 21.00 04/11/22 01:00 88 04/11/22 01:00 89 17 142/89 (106) 94 Mechanical Ventilator 21.00 04/11/22 00:00 90 20 150/84 (106) 94 Mechanical Ventilator 21.00 04/11/22 00:00 21 04/10/22 23:59 95 Mechanical Ventilator 21 04/10/22 23:20 73 17 93 21 04/10/22 23:00 75 24 120/71 (87) 93 Mechanical Ventilator 21.00 04/10/22 22:00 82 16 134/76 (95) 94 Mechanical Ventilator 21.00 04/10/22 21:00 84 16 122/70 (87) 92 Mechanical Ventilator 21.00 04/10/22 20:00 21 04/10/22 20:00 93 Mechanical Ventilator 21 04/10/22 20:00 90 23 129/85 (100) 92 Mechanical Ventilator 21.00 04/10/22 19:58 36.8 04/10/22 19:42 89 127/79 04/10/22 19:00 90 22 132/73 (92) 100 Mechanical Ventilator 21.00 04/10/22 19:00 90 04/10/22 18:59 93 26 95 21 04/10/22 18:00 101 36 164/128 (140) 94 Mechanical Ventilator 21.00 04/10/22 17:54 103 164/108 04/10/22 17:00 103 30 164/108 (126) 96 Mechanical Ventilator 21.00 04/10/22 16:34 94 Mechanical Ventilator 21 04/10/22 16:00 93 18 153/84 (107) 94 Mechanical Ventilator 21.00 04/10/22 16:00 21 04/10/22 15:59 36.5 04/10/22 15:12 93 22 95 21 04/10/22 15:00 86 27 157/84 (108) 93 Mechanical Ventilator 21.00 04/10/22 14:00 105 15 158/87 (110) 96 Mechanical Ventilator 21.00 04/10/22 13:34 97 184/100 04/10/22 13:00 92 17 164/89 (114) 94 Mechanical Ventilator 21.00 04/10/22 12:34 97 04/10/22 12:09 21 04/10/22 12:09 96 Mechanical Ventilator 21 04/10/22 12:00 104 24 167/105 (125) 94 Mechanical Ventilator 21.00 04/10/22 11:57 37.2 04/10/22 11:00 105 19 147/97 (114) 94 Mechanical Ventilator 21.00 04/10/22 10:59 103 23 94 21 I & O 04/11/22 07:00 Intake Total 3494 ml Output Total 3250 ml Balance 244 ml Height & Weight Height: '" Weight: lbs. oz. kg; 45.24 BMI Method: General Appearance: Chronically ill, Obese HEENT: TMs Normal Neck: Other (trach) Respiratory: Lungs Clear, No Respiratory Distress Cardiovascular: Regular Rate, Rhythm, No Murmur Capillary Refill: Less Than 3 Seconds Peripheral Pulses: 2+ Dorsalis Pedis (R), 2+ Left Dors-Pedis (L) Gastrointestinal: normal bowel sounds, soft, other (peg intact and functional, no redness/erythema) Extremity: Normal Inspection, Pedal Edema Neurologic/Psychiatric: Alert, Oriented x3 Skin: Normal Color, Warm/Dry Lymphatic: No Adenopathy Results Lab Laboratory Tests 04/10/22 05:30 04/11/22 05:03 Assessment/Plan Assessment/Plan 1 MILAGROS HUBER MD Apr 11, 2022 10:53
--- NOTE | 2022-04-11 11:44 | Discharge Summary ---
Diagnosis/Chief Complaint Date of Admission Mar 11, 2022 at 21:37 Date of Discharge Admission Diagnosis Acute hypercapnic and hypoxic respiratory failure Primary Care No,Local Physician Discharge Diagnosis (1) Acute respiratory failure Status: Acute (2) Acute HFrEF (heart failure with reduced ejection fraction) Status: Acute (3) NSTEMI (non-ST elevation myocardial infarction) Status: Acute (4) PNA (pneumonia) Status: Resolved (5) Morbid obesity Status: Chronic (6) COPD (chronic obstructive pulmonary disease) Status: Acute (7) Tracheostomy in place Status: Acute (8) Failure to liberate from mechanical ventilation Status: Acute (9) PEG (percutaneous endoscopic gastrostomy) status Status: Acute (10) Ileus Status: Resolved (11) Hypernatremia Status: Acute (12) T2DM (type 2 diabetes mellitus) Status: Acute (13) GAEL (acute kidney injury) Status: Acute (14) Multiorgan failure Status: Acute (15) Poor prognosis Status: Acute (16) Goals of care, counseling/discussion Status: Acute (17) DNR (do not resuscitate) Status: Acute Discharge Summary Discharge Physical Exam Allergies: Coded Allergies: codeine (Verified Allergy, Unknown, 02/16/22) haloperidol (Verified Allergy, Unknown, 02/16/22) iodine (Verified Allergy, Unknown, Vomiting, 02/16/22) morphine (Verified Allergy, Unknown, 03/11/22) pregabalin (Verified Allergy, Unknown, 02/16/22) simvastatin (Verified Allergy, Unknown, 02/16/22) Uncoded Allergies: CORTICORSTEROIDS (Allergy, Unknown, 03/11/22) Vitals & I&Os Vital Signs Date Time Temp Pulse Resp B/P (MAP) Pulse Ox O2 Delivery O2 Flow Rate FiO2 04/11/22 11:00 104 42 85/51 (62) 91 Mechanical Ventilator 25.00 04/11/22 10:14 25 04/11/22 09:15 37.8 General Appearance: Chronically ill, Obese Respiratory: No Accessory Muscle Use, Decreased Breath Sounds Cardiovascular: Regular Rate, Rhythm, No Murmur Neurologic/Psychiatric: Alert Hospital Course Patient was admitted to the hospital on March 11 due to COPD exacerbation and elevated troponin. He was intubated that evening due to respiratory failure and treated with steroids and IV antibiotics. Cardiology was consulted due to his elevated troponin and conservative management was elected. Echo revealed an EF of 50%. He was treated with beta-blockers and TRUPTI inhibitor's as blood pressure allowed. He completed multiple courses of antibiotics as well for the pneumonia. Extubation was attempted twice and he failed and required reintubation. Ultimately his family elected to proceed with trach and PEG placement. Following PEG placement tube feeds were initiated and some stool was noticed to be coming out near the PEG site. CT abdomen was done on April 03 which revealed subcutaneous emphysema in the left anterior abdominal wall but no abnormality of the abdomen or pelvis. I discussed these findings with Dr. SALAZAR who states patient has a colocutaneous fistula and that this will heal once PEG is able to be removed and conservative management was recommended. Ultimately he was referred to an LTAC in [facility]. He was transferred there via EMS for continued ventilator weaning and care. Labs (last 24 hrs) Laboratory Tests 04/10/22 11:48: Glucometer 165H 04/10/22 17:44: Glucometer 117H 04/11/22 00:06: Glucometer 134H 04/11/22 05:03: White Blood Count 9.3, Red Blood Count 3.51L, Hemoglobin 11.2L, Hematocrit 35L, Mean Corpuscular Volume 99, Mean Corpuscular Hemoglobin 32, Mean Corpuscular Hemoglobin Concent 32, Red Cell Distribution Width 14.9H, Platelet Count 340, Mean Platelet Volume 11.2, Immature Granulocyte % (Auto) 2, Neutrophils (%) (Auto) 89H, Lymphocytes (%) (Auto) 7L, Monocytes (%) (Auto) 1, Eosinophils (%) (Auto) 1, Basophils (%) (Auto) 0, Neutrophils # (Auto) 8.3H, Lymphocytes # (Aut o) 0.6L, Monocytes # (Auto) 0.1, Eosinophils # (Auto) 0.1, Basophils # (Auto) 0.0, Immature Granulocyte # (Auto) 0.2H, Percent Immature Platelet Fraction 2.9, Sodium Level 154H, Potassium Level 4.4, Chloride Level 126H, Carbon Dioxide Level 17L, Anion Gap 11, Blood Urea Nitrogen 52H, Creatinine 1.59H, Estimat Glomerular Filtration Rate 49, BUN/Creatinine Ratio 33, Glucose Level 158H, Calcium Level 8.0L, Phosphorus Level 3.1, Magnesium Level 2.6H, Albumin 2.2L, Procalcitonin 1.07H 04/11/22 09:35: Blood Gas Puncture Site R, Blood Gas Patient Temperature 38.1, Arterial Blood pH 7.39, Arterial Blood Partial Pressure CO2 35, Arterial Blood Partial Pressure O2 71L, Arterial Blood HCO3 21L, Arterial Blood Total CO2 21.7, Arterial Blood O xygen Saturation 95, Arterial Blood Base Excess -3.5L, Johnathon Test YES-POS, Blood Gas Ventilator Setting NO, Blood Gas Inspired Oxygen 25% 04/11/22 11:22: Glucometer 157H Microbiology 04/05/22 Catheter Tip Culture - Final, Complete No growth 04/03/22 Catheter Tip Culture - Final, Complete Staphylococcus epidermidis 04/02/22 Urine Culture - Final, Complete NO GROWTH 03/13/22 MRSA Screen - Final, Complete MRSA not isolated Patient resulted labs reviewed. Pending Labs Laboratory Tests 04/11/22 05:03: White Blood Count 9.3, Red Blood Count 3.51, Hemoglobin 11.2, Hematocrit 35, Mean Corpuscular Volume 99, Mean Corpuscular Hemoglobin 32, Mean Corpuscular Hemoglobin Concent 32, Red Cell Distribution Width 14.9, Platelet Count 340, Mean Platelet Volume 11.2, Immature Granulocyte % (Auto) 2, Neutrophils (%) (Auto) 89, Lymphocytes (%) (Auto) 7, Monocytes (%) (Auto) 1, Eosinophils (%) (Auto) 1, Basophils (%) (Auto) 0, Neutrophils # (Auto) 8.3, Lymphocytes # (Auto) 0.6, Monocytes # (Auto) 0.1, Eosinophils # (Auto) 0.1, Basophils # (Auto) 0.0, Immature Granulocyte # (Auto) 0.2, Percent Immature Platelet Fraction 2.9, Sodium Level 154, Potassium Level 4.4, Chloride Level 126, Carbon Dioxide Level 17, Anion Gap 11, Blood Urea Nitrogen 52, Creatinine 1.59, Estimat Glomerular Filtration Rate 49, BUN/Creatinine Ratio 33, Glucose Level 158, Calcium Level 8.0, Phosphorus Level 3.1, Magnesium Level 2.6, Albumin 2.2, Procalcitonin 1.07 04/11/22 09:35: Blood Gas Puncture Site R, Blood Gas Patient Temperature 38.1, Arterial Blood pH 7.39, Arterial Blood Partial Pressure CO2 35, Arterial Blood Partial Pressure O2 71, Arterial Blood HCO3 21, Arterial Blood Total CO2 21.7, Arterial Blood Oxygen Saturation 95, Arterial Blood Base Excess -3.5, Johnathon Test YES-POS, Blood Gas Ventilator Setting NO, Blood Gas Inspired Oxygen 25% 04/11/22 11:22: Glucometer 157 Imaging: Reviewed Imaging Report Discussion & Recommendations Discharge Planning: >30 minutes discharge planning Discharge Home Medications: Active Scripts Active No Active Prescriptions or Reported Medications Instructions to patient/family Please see electronic discharge instructions given to patient. Problem Qualifiers (1) Acute respiratory failure: Respiratory failure complication: hypoxia and hypercapnia Qualified Codes: J96.01 - Acute respiratory failure with hypoxia; J96.02 - Acute respiratory failure with hypercapnia (2) COPD (chronic obstructive pulmonary disease): COPD type: COPD with acute lower respiratory infection Qualified Codes: J44.0 - Chronic obstructive pulmonary disease with (acute) lower respiratory infection (3) T2DM (type 2 diabetes mellitus): Diabetes mellitus mcc insulin use: without middle or intermediate school principal use Diabetes mellitus complication status: with hyperglycemia Qualified Codes: E11.65 - Ty pe 2 diabetes mellitus with hyperglycemia JAIRO MURILLO MD Apr 11, 2022 11:44
[2022-04-11] MEDS ORDERED: ALBUMIN 25% 25 GM/100 ML 50 ML IV ONE (12:00)
[2022-04-11 14:45] VITALS: BP 93/57
== END 2022-04-11 17:25 | DRG 4 ==
LOC: EDUNIT# 15:33 → ER 15:34 → CSD 17:18 → OBSVTOIN 21:37 → ICU 03-12 01:36
PROVIDERS: ADMIT Family Medicine; ATTEND Family Medicine
PROC: 5A0935A Assistance with Respiratory Ventilation, Less than 24 Consecutive Hours, High Flow/Velocity Cannula (ICD-10-PCS; 2022-03-11)
PROC: 5A1955Z Respiratory Ventilation, Greater than 96 Consecutive Hours (ICD-10-PCS; 2022-03-12)
PROC: 0BH17EZ Insertion of Endotracheal Airway into Trachea, Via Natural or Artificial Opening (ICD-10-PCS; 2022-03-12)
PROC: 5A09357 Assistance with Respiratory Ventilation, Less than 24 Consecutive Hours, Continuous Positive Airway Pressure (ICD-10-PCS; 2022-03-12)
PROC: 0BH18EZ Insertion of Endotracheal Airway into Trachea, Via Natural or Artificial Opening Endoscopic (ICD-10-PCS; 2022-03-22)
PROC: 0DB78ZX Excision of Stomach, Pylorus, Via Natural or Artificial Opening Endoscopic, Diagnostic (ICD-10-PCS; 2022-03-26)
PROC: 0DB48ZX Excision of Esophagogastric Junction, Via Natural or Artificial Opening Endoscopic, Diagnostic (ICD-10-PCS; 2022-03-26)
PROC: 0B110F4 Bypass Trachea to Cutaneous with Tracheostomy Device, Open Approach (ICD-10-PCS; principal; 2022-03-26 12:22)
PROC: 0DH63UZ Insertion of Feeding Device into Stomach, Percutaneous Approach (ICD-10-PCS; 2022-03-26 12:22)
DX: J96.22 Acute and chronic respiratory failure with hypercapnia (principal); I21.A1 Myocardial infarction type 2; J18.9 Pneumonia, unspecified organism; I50.23 Acute on chronic systolic (congestive) heart failure; J44.0 Chronic obstructive pulmonary disease with (acute) lower respiratory infection; Z68.42 Body mass index [BMI] 45.0-49.9, adult; K56.7 Ileus, unspecified; E87.0 Hyperosmolality and hypernatremia; N17.9 Acute kidney failure, unspecified; K63.2 Fistula of intestine; K31.6 Fistula of stomach and duodenum; J96.21 Acute and chronic respiratory failure with hypoxia; J20.9 Acute bronchitis, unspecified; I11.0 Hypertensive heart disease with heart failure; E11.65 Type 2 diabetes mellitus with hyperglycemia; E78.00 Pure hypercholesterolemia, unspecified; I25.10 Atherosclerotic heart disease of native coronary artery without angina pectoris; F17.210 Nicotine dependence, cigarettes, uncomplicated; E66.01 Morbid (severe) obesity due to excess calories; G47.33 Obstructive sleep apnea (adult) (pediatric); K21.00 Gastro-esophageal reflux disease with esophagitis, without bleeding; K29.70 Gastritis, unspecified, without bleeding; K94.29 Other complications of gastrostomy; Z66 Do not resuscitate; Z20.822 Contact with and (suspected) exposure to COVID-19; I25.2 Old myocardial infarction; Z95.5 Presence of coronary angioplasty implant and graft; Z88.5 Allergy status to narcotic agent; Z88.8 Allergy status to other drugs, medicaments and biological substances
CPT/HCPCS: 36410; 36415; 36569; 36600; 71045; 74177; 76937; 80048; 80053; 80202; 81000; 82040; 82550; 82553; 82805; 82947; 83605; 83690; 83735; 83874; 83880; 84100; 84145; 84478; 84484; 85007; 85025; 85027; 85379; 85610; 85730; 87040; 87070; 87077; 87081; 87088; 87186; 87205; 87636; 88305; 93005; 93306; 94002; 94003; 94640; 94660; 94799; 96360; 96361